=== PATIENT | female | born 1940 | race Caucasian/White ===

== ENCOUNTER → 2017-12-10 13:10 | Outpatient (CLI) | payer MEDICARE, OTHER, SELFPAY | PROVIDERS: Family Provider Family Medicine; PCP Family Medicine; Visit Provider Family Medicine | DX: R00.2 Palpitations (principal); I49.9 Cardiac arrhythmia, unspecified | CPT/HCPCS: 93225; 93226 ==

== ENCOUNTER 2018-11-04 17:10 | Inpatient (IN) | payer MEDICARE, OTHER, SELFPAY ==
[2018-11-04] VITALS (16 sets, daily range): BP systolic 121–184; BP diastolic 57–95; PULSE 80–108; RESP 12–34; TEMP 36.9–39.2; O2SAT 84–100; BMI 43.4; BMI 43.5; BMI 40.7
--- NOTE | 2018-11-04 17:19 | EKG12_ITS ---
Test Reason : SOB Blood Pressure : / mmHG Vent. Rate : 104 BPM Atrial Rate : 104 BPM P-R Int : 150 ms QRS Dur : 072 ms QT Int : 352 ms P-R-T Axes : -17 030 077 degrees QTc Int : 462 ms Sinus tachycardia Otherwise normal ECG Confirmed by ANA FLOR, MAKENNA ([id number]), greeting card editor TRICE LOPEZ ([id number]) on 11/08/2018 1:14:19 PM Referred By: Gabrielle Lam Confirmed By:MAKENNA PEREZ MD
--- NOTE | 2018-11-04 17:29 | RAD_ITS ---
STUDY: X-RAY CHEST REASON FOR EXAM: Female, 77 years old. Coughing with wheezing. TECHNIQUE: Single AP portable view of the chest. COMPARISON: December 13, 2014. FINDINGS: There is a decreased inspiratory effort when compared to prior exam. There is patchy infiltrate in the medial right lung base. Minimal interstitial changes are also seen in the left hilar region There is no demonstrated pleural abnormality. Normal size heart. Normal mediastinum and surekha. Normal visualized pulmonary arteries. There is atherosclerotic calcification of the aortic arch with tortuosity. No visualized osseous changes. There is no demonstrated abnormality of the visualized soft tissue structures of the upper abdomen. RAD/Chest 1 View (Portable) IMPRESSION: Right basilar and left perihilar infiltrates. Electronically Signed: Parviz Garcia DO at 17:42 EDT Tel [phone], Service support ,
[2018-11-04 17:32] LABS: Absolute Lymphocyte Count 0.51 X10^3/ul (0.83-4.51); Absolute Neutrophil Count 8.7 X10^3/uL (2.0-7.7); Basophil# 0.05 X10^3/uL; Basophil% 0.5 % (0-1); Eosinophil# 0.01 X10^3/uL; Eosinophils% 0.1 % (0-5); Hemoglobin 11.6 g/dl (12.0-15.0); Lymphocyte # 0.51 X10^3/ul (4.0); Lymphocyte % 5.1 % (19-41); Mean Corp Hgb Conc 31.4 g/gl (32-36); Mean Corpuscular Hgb 28.6 pg (27.0-32.0); Mean Corpuscular Volume 91.1 fL (81-99); Mean Platelet Vol. 9.9 fl (6.2-12.0); Monocyte# 0.63 X10^3/uL; Monocyte% 6.4 % (0-10); Neutrophil # 8.66 X10^3/uL (2.7-7.7); POSITIVE COUNT NO; POSITIVE DIFFERENTIAL YES; POSITIVE MORPHOLOGY NO; Platelet Count 264 K/mm3 (150-450); RBC Distribution Width CV 15.1 % (11.6-14.6); Red Blood Count 4.06 M/mm3 (4.2-5.4); White Blood Count 9.9 K/mm3 (4.4-11.0)
[2018-11-04 17:33] LABS: Differential Indicated SCAN CRITERIA MET; Neutrophil % 87.4 % (47-70)
[2018-11-04] MEDS: Albuterol 2.5 MG/3 ML VIAL.NEB. INHALATION ×3 (17:38→17:46)
[2018-11-04 17:41] LABS: Base Excess -1 mmol/L (-2 to +2); Bicarbonate 24.2 mmol/L (22-26); Blood Gas Specimen Type ART; O2 Delivery Device NRB Mask; PO2 97 mmHG (75-100); SITE R Brachial; SO2 97 % (95-99); Time Given 1725; Total Carbon Dioxide 25 mmol/L; pCO2 40.7 mmHg (35-45); pH 7.38 (7.35-7.45)
[2018-11-04 17:41] LABS: International Normalized Ratio 1.2
[2018-11-04 17:42] LABS: Partial Thromboplast Time 34.3 Seconds (24.1-36.2)
[2018-11-04 17:49] LABS: ALB/GLOB Ratio 0.8 RATIO (0.9-2.4); AST(SGOT) 52 U/L (15-37); Alanine Aminotransfer ALT/SGPT 36 U/L (13-56); Albumin, Serum 2.9 g/dL (3.2-5.0); Alkaline Phosphatase 79 U/L (45-117); Anion Gap 9 (5-15); BUN 19 mg/dL (7-18); BUN/Creat Ratio 15.1 RATIO (10-20); Calcium,Total 7.9 mg/dL (8.5-10.1); Chloride 98 mmol/L (98-107); Creatinine, Serum 1.26 mg/dL (0.55-1.02); EST Glomerular Filtration Rate 44 mL/min (>60); Est Glom Filt Rate - Afr Amer 53 mL/min (>60); Estimated Creatinine Clearance 26.86 ml/min; Globulin 3.8 g/dL (2.2-4.2); Glucose 154 mg/dL (74-106); Potassium 3.9 mmol/L (3.5-5.1); Protein, Total 6.7 g/dL (6.4-8.2); Sodium Level 135 mmol/L (136-145)
[2018-11-04 17:57] LABS: Lactic Acid 2.1 mmol/L (0.4-2.0)
[2018-11-04 18:00] LABS: Platelet Estimate ADEQUATE (ADEQ)
--- NOTE | 2018-11-04 18:00 | ED.VIS.GEN ---
History of Present Illness Chief Complaint: Shortness of Breath Detail of Chief Complaint: Bad cough and shortness of breath 4 days Onset: Days Context: Sudden Onset Timing: Continuous Quality: Dyspnea, dyspnea on exertion and wheezing Location: Respiratory Current Severity: Severe Maximum Severity: Severe Worsened by: Activity Relieved by: Nothing Associated Symptoms: Subjective fever, nonproductive cough Narrative: Patient is a 77-year-old woman with no history of coronary disease, CHF or lung disease who presents with bad cough and shortness of breath for the past week. Patient was hypoxic per squad. She arrived by ambulance on rebreather mask. Patient is tachycardic, tachypneic and febrile. Last she denies orthopnea or PND. She denies exertional chest pain. She states she feels terrible. Prior similar symptoms: No Recent Illness/Hospitalization: No - Past Medical History (1) Acute kidney insufficiency Status: Acute (2) Barretts esophagus Status: Chronic (3) Benign essential hypertension Status: Chronic (4) Cerebrovascular disease Status: Chronic (5) History of bleeding peptic ulcer Status: Chronic (6) Osteoarthritis Status: Chronic Past Medical History - Allergies and Home Meds Allergies/Adverse Reactions: Allergies gabapentin Allergy (Verified 11/04/18 17:22) Unknown nortriptyline Allergy (Verified 11/04/18 17:22) Unknown rofecoxib [From Vioxx] Allergy (Verified 11/04/18 17:22) Unknown tacrolimus Allergy (Verified 11/04/18 17:22) Unknown morphine Adverse Reaction (Verified 11/04/18 17:22) Nausea Primary Care Physician: Nicolas Villegas MD [Primary Care Provider] - Prior records reviewed: Yes Surgical History: appendectomy, cholecystectomy, hysterectomy, total hip arthroplasty Lives: Alone Smoking Status: Former smoker Alcohol: None Drugs: None - Family History Maternal Family History: Reports: No pertinent history Review of Systems General: Reports: Chills, Fever, Malaise, Subjective. Denies: Sweats, Weight loss Eyes: Denies: Visual changes - bilaterally, Blurred Vision - bilaterally ENT: Denies: Bilateral ear pain, Rhinorrhea, Sore throat Cardiovascular: Reports: Palpitations, Heart racing. Denies: Chest pain Respiratory: Reports: Dyspnea, Cough, Dyspnea on exertion. Denies: Sputum, Orthopnea, Paroxysmal nocturnal dyspnea Gastrointestinal: Denies: Abdominal pain, Nausea, Vomiting, Diarrhea, Melena, Hematochezia Genitourinary: Denies: Dysuria, Hematuria, Frequency Musculoskeletal: Denies: Myalgias, Arthralgias, Neck pain, Back pain, Swelling, Extremity Pain Skin: Denies: Rash, Wounds Neurological: Reports: Weakness. Denies: Headache, Parasthesia, Numbness, -, - Hematologic: Denies: Easy bruising, Easy bleeding Allergy: Denies: Uticaria, Swelling of the mouth Physical Exam Vital Signs/Narrative: Vital Signs Temp Pulse Resp BP Pulse Ox 11/04/18 17:30 104 H 32 H 11/04/18 17:21 34 H 96 11/04/18 17:17 34 H 94 11/04/18 17:11 99.8 F H 108 H 34 H 160/76 H 84 Inital Vital Signs reviewed: Yes General: Well nourished, Well developed, Obese, Acute Distress Head: Normocephalic, Atraumatic Eyes: Perrl, EOMI. Negative for: Pale conjunctiva, Scleral icterus, - ENT: No rhinorrhea, TM's clear, Dry mucous membranes Neck: Supple, Nontender, No lymphadenopathy, No JVD Cardiovascular: Regular rhythm, No murmurs, Normal S1, Normal S2, Tachycardia Respiratory: Chest nontender, Rales, Wheezing, Decreased Air Movement, Retractions Abdomen: Soft, Nontender, Nondistended, Normal bowel sounds, No masses Rectal: Deferred Back: Nontender, Normal Inspection. Negative for: CVA tenderness Extremities: Nontender, No edema. Negative for: Calf Tenderness Skin: Normal color, No rash Neurological: Alert, Oriented x3, Cranial nerves II-XII grossly intact, Normal Strength, Normal Sensation Psychological: Normal affect, Normal Mood Diagnostic/Tx/Re-eval Chest X-Ray - ED: 1 View, Read by ED Physician, Right Infiltrate Impressions Chest X-Ray 11/04/18 17:29 IMPRESSION: Right basilar and left perihilar infiltrates. Electronically Signed: Parviz Garcia DO at 17:42 EDT Tel [phone], Service support , 11/04/18 17:29 Chest 1 View (Portable) [RAD] Stat Laboratory Results 11/04/18 11/04/1819 17:15 17:15 17:15 WBC 9.9 RBC 4.06 L Hgb 11.6 L Hct 37.0 MCV 91.1 MCH 28.6 MCHC 31.4 L RDW 15.1 H RDW Differential 50.0 H Plt Count 264 MPV 9.9 Immature Gran % (Auto) 0.500 Neut % (Auto) 87.4 H Lymph % (Auto) 5.1 L [place] % (Auto) 6.4 Eos % (Auto) 0.1 Baso % (Auto) 0.5 Absolute Neuts (auto) 8.7 H Absolute Lymphs (auto) 0.51 L Total Counted Not Reportable Differential Comment SEE COMMENT Platelet Estimate ADEQUATE Anisocytosis RARE Macrocytosis RARE PT 15.0 H INR 1.2 APTT 34.3 Specimen Type Sample Site pH Bicarbonate Actual POC Total CO2 Base Excess O2 Saturation ABG pCO2 ABG pO2 Tomás Test O2 Delivery Device Liter Flow Blood Gas Notified Whom Blood Gas Notified Time Sodium 135 L Potassium 3.9 Chloride 98 Carbon Dioxide 28.0 Anion Gap 9 BUN 19 H Creatinine 1.26 H Estim Creat Clear Calc 26.86 Est GFR (MDRD) Af Amer 53 L Est GFR (MDRD) Non-Af 44 L BUN/Creatinine Ratio 15.1 Glucose 154 H Lactic Acid Calcium 7.9 L Total Bilirubin 0.50 AST 52 H ALT 36 Alkaline Phosphatase 79 Total Protein 6.7 Albumin 2.9 L Globulin 3.8 Albumin/Globulin Ratio 0.8 L 11/04/18 11/04/18 17:15 17:37 WBC RBC Hgb Hct MCV MCH MCHC RDW RDW Differential Plt Count MPV Immature Gran % (Auto) Neut % (Auto) Lymph % (Auto) [place] % (Auto) Eos % (Auto) Baso % (Auto) Absolute Neuts (auto) Absolute Lymphs (auto) Total Counted Differential Comment Platelet Estimate Anisocytosis Macrocytosis PT INR APTT Specimen Type ART Sample Site R Brachial pH 7.38 Bicarbonate Actual 24.2 POC Total CO2 25 Base Excess -1 O2 Saturation 97 ABG pCO2 40.7 ABG pO2 97 Tomás Test NA O2 Delivery Device NRB Mask Liter Flow 15.0 Blood Gas Notified Whom ED Blood Gas Notified Time 1725 Sodium Potassium Chloride Carbon Dioxide Anion Gap BUN Creatinine Estim Creat Clear Calc Est GFR (MDRD) Af Amer Est GFR (MDRD) Non-Af BUN/Creatinine Ratio Glucose Lactic Acid 2.1 H Calcium Total Bilirubin AST ALT Alkaline Phosphatase Total Protein Albumin Globulin Albumin/Globulin Ratio - Rhythm Strip Rhythm Strip: Sinus Rhythm Rate: 110 Ectopy: None - EKG Initial EKG Interpretation: Sinus Tachycardia - Weight is 104. WA interval, QRS duration QT duration normal. [place] is normal. The EKG is normal other than sinus tachycardia. - Medical Decision Making Arrives respiratory distress with respiratory failure. ABG was obtained to assess acid-base status as well as CO2. Patient CO2 was normal which is abnormal since she is tachypnic. This reveals mild compensation.. Portal chest x-ray treated by me as a large right lower lobe infiltrate. Cardiac silhouette is normal. The heart is slightly enlarged. No osseous structure of normality noted. Sepsis work was undertaken. By definition patient has severe sepsis and she has significant respiratory failure. Lactate was elevated 2.1. White count is normal. H&H is unremarkable. Patient received 3 albuterol treatments. She is still wheezing. She is still using accessory muscles. BiPAP was ordered. She was treated with 750 mg of levofloxacin IV piggyback. Case was discussed with hospitalist. She will be admitted to the ICU. - Critical Care Time Critical care time (excluding procedures): 30-74 minutes, Discussing w/Patient &/or Family/Oil Painter, Discussing w/Consultants, Arranging Admission or Transfer, Performing Direct Patient Care at Bedside ED Disposition - Plan for ED Patient: Disposition: Acute Care Hospital [facility] Diagnosis: Severe sepsis, Acute respiratory failure with hypoxia, Right lower lobe pneumonia, Sinus tachycardia by electrocardiogram, Chronic renal insufficiency, stage II (mild), Hyperglycemia, unspecified Referrals: Nicolas Villegas MD [Primary Care Provider] -
[2018-11-04 18:01] LABS: Anisocytosis RARE; Macrocytosis RARE
[2018-11-04] MEDS: levoFLOXacin IV 750 MG/150 ML BAG 100 MG IV (18:20)
[2018-11-04 18:56] LABS: Base Excess 0 mmol/L (-2 to +2); Bicarbonate 24.5 mmol/L (22-26); Blood Gas Specimen Type ART; EPAP 5; FI02 40; IPAP 10; PO2 88 mmHG (75-100); RR 25; SITE R Brachial; SO2 97 % (95-99); Total Carbon Dioxide 26 mmol/L; pCO2 37.4 mmHg (35-45); pH 7.43 (7.35-7.45)
--- NOTE | 2018-11-04 19:44 | PCM.HP.STD ---
Problem List (1) Severe sepsis Status: Acute (2) Acute respiratory failure with hypoxia Status: Acute (3) Right lower lobe pneumonia Status: Acute Qualifiers: Pneumonia type: due to unspecified organism Qualified Code(s): J18.1 - Lobar pneumonia, unspecified organism (4) Hypertension Status: Chronic Qualifiers: Hypertension type: essential hypertension Qualified Code(s): I10 - Essential (primary) hypertension (5) Carotid stenosis Status: Chronic Qualifiers: Laterality: left Qualified Code(s): I65.22 - Occlusion and stenosis of left carotid artery (6) Renal artery stenosis Status: Chronic History of Present Illness Date of Admission: 11/04/18 Chief Complaint: Shortness of breath ongoing for 4 days. The patient is a 77 year old F with past medical history of hypertension, hyperlipidemia, carotid stenosis, status post carotid endarterectomy, renal artery stenosis since status post stent, CKD stage 3, rheumatoid arthritis who comes in with complaints of shortness of breath ongoing for couple of weeks worsening over the last 4 days. Patient denies any fever or chills. No nausea or vomiting. SpO2 by EMS was 68% on room air Vitals in ED showed temp 99.8F, heart rate is 108, blood pressure is 160/76, respiratory rate is 34, SPO2 is 84% on room air, improved to 96% on BiPAP 10/5, FiO2 40% Admitting blood work showed CBC 9.9, hemoglobin 11.6, platelet 264, INR 1.2, APTT 34.3, ABG is unremarkable. BMP shows sodium of 135, potassium 3.9, chloride 98, bicarbonate 28, BUN 19, creatinine 1.26, Lactic acid is 2.1, LFTs unremarkable. Chest x-ray showed infiltrate in the right lung base, left perihilar infiltrates also. Past Medical History Past Medical History (Chronic Problems): Chronic Problems Chronic renal insufficiency, stage II (mild) (Chronic) Hypertension (Chronic) Carotid stenosis (Chronic) Renal artery stenosis (Chronic) Osteoarthritis (Chronic) Cerebrovascular disease (Chronic) Barretts esophagus (Chronic) History of bleeding peptic ulcer (Chronic) Benign essential hypertension (Chronic) Allergies gabapentin Allergy (Verified 11/04/18 17:22) Unknown nortriptyline Allergy (Verified 11/04/18 17:22) Unknown rofecoxib [From Vioxx] Allergy (Verified 11/04/18 17:22) Unknown tacrolimus Allergy (Verified 11/04/18 17:22) Unknown morphine Adverse Reaction (Verified 11/04/18 17:22) Nausea Home Medications: Ambulatory Orders Medication Instructions Recorded Pantoprazole Sodium [Protonix] 40 mg PO DAILY 12/15/14 Acetaminophen [Tylenol Arthritis] 650 mg PO Q4H PRN PRN 11/04/18 Amlodipine [Norvasc] 2.5 mg PO DAILY 11/04/18 Carvedilol 25 mg PO BID 11/04/18 Chlorthalidone 12.5 mg PO DAILY 11/04/18 Cholecalciferol (VIT D3) [Vitamin 2,000 unit PO DAILY 11/04/18 D] Clopidogrel Bisulfate [Clopidogrel] 75 mg PO DAILY 11/04/18 Coenzyme [id number] [Co 1 cap PO DAILY 11/04/18 Q-10 with l-Carnitine Sftgl] Labetalol HCl 300 mg PO BID 11/04/18 Leflunomide 20 mg PO DAILY 11/04/18 Pravastatin Sodium 20 mg PO QHS 11/04/18 Prednisone 5 mg PO DAILY 11/04/18 Surgical History: appendectomy, cholecystectomy, hysterectomy, total hip arthroplasty Psychiatric History: No pertinent psych hx 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 Denies: Chills, Fever, Weight Change Eyes: Denies: Blurred vision, Cataracts, Conjunctivae Inflammation, Pain, Redness, Vision Change HEENT: Denies: Difficulty Hearing, Difficulty Swallowing, Head Aches, Sinus Congestion, Sinus Drainage, Sore Throat Cardiovascular: Denies: Chest Pain, Claudication, Orthopnea, Palpitations, Paroxysmal Noc. Dyspnea Respiratory: Reports: Cough, Pleuritic Pain, Shortness of Breath, Shortness of breath at rest, Shortness of breath upon exertion. Denies: Hemoptysis, Sputum production Gastrointestinal: Denies: Abdominal Pain, Constipation, Hematemesis, Hematochezia, Nausea, Vomiting Genitourinary: Denies: Dysuria Musculoskeletal: Denies: Joint Pain, Joint stiffness, Joint swelling, Joint Tenderness Skin: Denies: Rash, Wounds Neurological: Denies: Difficulty swallowing, Focal weakness, Numbness, Tingling Psychiatric: Denies: Anxiety, Depression, Homicidal Ideations, Suicidal Ideations Hematologic/ Lymphatic: Denies: Easy Bruising, Easy Bleeding VTE Information - Inpt Only VTE Present on Admission: No VTE Pharm Prophylaxis ordered?: Yes Patient Problems: Active and Suspected Problems Severe sepsis (Acute) Acute respiratory failure with hypoxia (Acute) Right lower lobe pneumonia (Acute) Sinus tachycardia by electrocardiogram (Acute) Hyperglycemia, unspecified (Acute) - Physical Exam General: Alert, Oriented x3, Cooperative, - - Moderate respiratory distress, on BiPAP HEENT: Atraumatic, PERRLA, EOMI, Normocephalic Oral: Dry Mucosa Neck: Supple Lungs: Normal air movement, Diminished - More on the right than the left, Wheezes - Few wheezes heard Cardiovascular: Regular rate, Regular Rhythm, Normal S1, Normal S2, No murmurs Abdomen: Bowel Sounds Present, Soft, Non Tender, Non-Distended, No Hepato-splenomegaly Extremities: Edema - Trace bilateral edema Skin: No rashes Musculoskeletal: No Tenderness to Palpation of Joints or Extremities Lymphatic: No Cervical, Supraclavicular, or Inguinal Adenopathy Neurological: Cranial nerves II-XII grossly intact, Neuro grossly intact Psych/Mental Status: Normal Affect, Appropriate Vital Signs Temp Pulse Resp BP Pulse Ox 98.5 F 99 24 H 134/87 H 96 11/04/18 19:01 11/04/18 19:01 11/04/18 19:01 11/04/18 19:01 11/04/18 19:01 Oxygen Delivery Method Bi-pap Weight: 101 kg Body Mass Index (BMI) 43.4 Laboratory Tests Past 24 Hrs 11/04/18 11/04/18 11/04/18 17:15 17:15 17:15 WBC 9.9 RBC 4.06 L Hgb 11.6 L Hct 37.0 MCV 91.1 MCH 28.6 MCHC 31.4 L RDW 15.1 H RDW Differential 50.0 H Plt Count 264 MPV 9.9 Immature Gran % (Auto) 0.500 Neut % (Auto) 87.4 H Lymph % (Auto) 5.1 L [place] % (Auto) 6.4 Eos % (Auto) 0.1 Baso % (Auto) 0.5 Absolute Neuts (auto) 8.7 H Absolute Lymphs (auto) 0.51 L Total Counted Not Reportable Differential Comment SEE COMMENT Platelet Estimate ADEQUATE Anisocytosis RARE Macrocytosis RARE PT 15.0 H INR 1.2 APTT 34.3 Specimen Type Sample Site pH Bicarbonate Actual POC Total CO2 Base Excess O2 Saturation O2 % ABG pCO2 ABG pO2 Tomás Test Respiration Rate O2 Delivery Device Liter Flow EPAP IPAP Blood Gas Notified Whom Blood Gas Notified Time Sodium 135 L Potassium 3.9 Chloride 98 Carbon Dioxide 28.0 Anion Gap 9 BUN 19 H Creatinine 1.26 H Estim Creat Clear Calc 26.86 Est GFR (MDRD) Af Amer 53 L Est GFR (MDRD) Non-Af 44 L BUN/Creatinine Ratio 15.1 Glucose 154 H Lactic Acid Calcium 7.9 L Total Bilirubin 0.50 AST 52 H ALT 36 Alkaline Phosphatase 79 Total Protein 6.7 Albumin 2.9 L Globulin 3.8 Albumin/Globulin Ratio 0.8 L 11/04/18 11/04/18 11/04/18 17:15 17:37 18:48 WBC RBC Hgb Hct MCV MCH MCHC RDW RDW Differential Plt Count MPV Immature Gran % (Auto) Neut % (Auto) Lymph % (Auto) [place] % (Auto) Eos % (Auto) Baso % (Auto) Absolute Neuts (auto) Absolute Lymphs (auto) Total Counted Differential Comment Platelet Estimate Anisocytosis Macrocytosis PT INR APTT Specimen Type ART ART Sample Site R Brachial R Brachial pH 7.38 7.43 Bicarbonate Actual 24.2 24.5 POC Total CO2 25 26 Base Excess -1 0 O2 Saturation 97 97 O2 % 40 ABG pCO2 40.7 37.4 ABG pO2 97 88 Tomás Test NA NA Respiration Rate 25 O2 Delivery Device NRB Mask Bi / C PAP Liter Flow 15.0 EPAP 5 IPAP 10 Blood Gas Notified Whom ED MD ED MD Blood Gas Notified Time 1725 Sodium Potassium Chloride Carbon Dioxide Anion Gap BUN Creatinine Estim Creat Clear Calc Est GFR (MDRD) Af Amer Est GFR (MDRD) Non-Af BUN/Creatinine Ratio Glucose Lactic Acid 2.1 H Calcium Total Bilirubin AST ALT Alkaline Phosphatase Total Protein Albumin Globulin Albumin/Globulin Ratio Assessment/Plan All Active Problems Severe sepsis (Acute) Acute respiratory failure with hypoxia (Acute) Right lower lobe pneumonia (Acute) Sinus tachycardia by electrocardiogram (Acute) Hyperglycemia, unspecified (Acute) Dehydration (Acute) Acute kidney insufficiency (Acute) 77 year old F with past medical history of hypertension, hyperlipidemia, carotid stenosis, status post carotid endarterectomy, renal artery stenosis since status post stent, CKD stage 3, rheumatoid arthritis who comes in with complaints of shortness of breath ongoing for couple of weeks worsening over the last 4 days. Patient denies any fever or chills. No nausea or vomiting. SpO2 by EMS was 68% on room air. 1. Acute hypoxic respiratory failure secondary to bilateral CAP, bilaterally, likely secondary to suspected gram positive organisms Saturating 68% with EMS, 84% whilst in ED improved on BiPAP, give 1 dose of Levaquin in the ED Chest x-ray shows bilateral pneumonia, worse on the right Patient is immunocompromise, on leflunomide and prednisone Plan: Admit to ICU, continue on BiPAP, breathing treatments, IV steroids, sap bobj developer consult, IV ceftriaxone and azithromycin 2. Severe sepsis secondary to Bilateral CAP, on IV antibiotics, trend lactic acid, continue on IVF 3. Hypertension, controlled, continue with home meds 3. CKD stage 3, stable 4. Carotid stenosis s/p carotid endartectomies/renal artery stenosis s/p stent, on plavix 5. RA, on leflunomide and prednisone, both are on hold 6. DVT PPx- Heparin SC Code Visit Inpatient E&M: 58339 Init Hosp L3 Procedures: 75713 Advncd Care Plan 30 Min
--- NOTE | 2018-11-04 19:57 | HP.PCM_ITS ---
Problem List (1) Severe sepsis Status: Acute (2) Acute respiratory failure with hypoxia Status: Acute (3) Right lower lobe pneumonia Status: Acute Qualifiers: Pneumonia type: due to unspecified organism Qualified Code(s): J18.1 - Lobar pneumonia, unspecified organism (4) Hypertension Status: Chronic Qualifiers: Hypertension type: essential hypertension Qualified Code(s): I10 - Essential (primary) hypertension (5) Carotid stenosis Status: Chronic Qualifiers: Laterality: left Qualified Code(s): I65.22 - Occlusion and stenosis of left carotid artery (6) Renal artery stenosis Status: Chronic History of Present Illness Date of Admission: 11/04/18 Chief Complaint: Shortness of breath ongoing for 4 days. The patient is a 77 year old F with past medical history of hypertension, hyperlipidemia, carotid stenosis, status post carotid endarterectomy, renal artery stenosis since status post stent, CKD stage 3, rheumatoid arthritis who comes in with complaints of shortness of breath ongoing for couple of weeks worsening over the last 4 days. Patient denies any fever or chills. No nausea or vomiting. SpO2 by EMS was 68% on room air Vitals in ED showed temp 99.8F, heart rate is 108, blood pressure is 160/76, respiratory rate is 34, SPO2 is 84% on room air, improved to 96% on BiPAP 10/5, FiO2 40% Admitting blood work showed CBC 9.9, hemoglobin 11.6, platelet 264, INR 1.2, APTT 34.3, ABG is unremarkable. BMP shows sodium of 135, potassium 3.9, chloride 98, bicarbonate 28, BUN 19, creatinine 1.26, Lactic acid is 2.1, LFTs unremarkable. Chest x-ray showed infiltrate in the right lung base, left perihilar infiltrates also. Past Medical History Past Medical History (Chronic Problems): Chronic Problems Chronic renal insufficiency, stage II (mild) (Chronic) Hypertension (Chronic) Carotid stenosis (Chronic) Renal artery stenosis (Chronic) Osteoarthritis (Chronic) Cerebrovascular disease (Chronic) Barretts esophagus (Chronic) History of bleeding peptic ulcer (Chronic) Benign essential hypertension (Chronic) Allergies gabapentin Allergy (Verified 11/04/18 17:22) Unknown nortriptyline Allergy (Verified 11/04/18 17:22) Unknown rofecoxib [From Vioxx] Allergy (Verified 11/04/18 17:22) Unknown tacrolimus Allergy (Verified 11/04/18 17:22) Unknown morphine Adverse Reaction (Verified 11/04/18 17:22) Nausea Home Medications: Ambulatory Orders Medication Instructions Recorded Pantoprazole Sodium [Protonix] 40 mg PO DAILY 12/15/14 Acetaminophen [Tylenol Arthritis] 650 mg PO Q4H PRN PRN 11/04/18 Amlodipine [Norvasc] 2.5 mg PO DAILY 11/04/18 Carvedilol 25 mg PO BID 11/04/18 Chlorthalidone 12.5 mg PO DAILY 11/04/18 Cholecalciferol (VIT D3) [Vitamin 2,000 unit PO DAILY 11/04/18 D] Clopidogrel Bisulfate [Clopidogrel] 75 mg PO DAILY 11/04/18 Coenzyme [id number] [Co 1 cap PO DAILY 11/04/18 Q-10 with l-Carnitine Sftgl] Labetalol HCl 300 mg PO BID 11/04/18 Leflunomide 20 mg PO DAILY 11/04/18 Pravastatin Sodium 20 mg PO QHS 11/04/18 Prednisone 5 mg PO DAILY 11/04/18 Surgical History: appendectomy, cholecystectomy, hysterectomy, total hip arthroplasty Psychiatric History: No pertinent psych hx 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 Denies: Chills, Fever, Weight Change Eyes: Denies: Blurred vision, Cataracts, Conjunctivae Inflammation, Pain, Redness, Vision Change HEENT: Denies: Difficulty Hearing, Difficulty Swallowing, Head Aches, Sinus Congestion, Sinus Drainage, Sore Throat Cardiovascular: Denies: Chest Pain, Claudication, Orthopnea, Palpitations, Paroxysmal Noc. Dyspnea Respiratory: Reports: Cough, Pleuritic Pain, Shortness of Breath, Shortness of breath at rest, Shortness of breath upon exertion. Denies: Hemoptysis, Sputum production Gastrointestinal: Denies: Abdominal Pain, Constipation, Hematemesis, Hematochezia, Nausea, Vomiting Genitourinary: Denies: Dysuria Musculoskeletal: Denies: Joint Pain, Joint stiffness, Joint swelling, Joint Tenderness Skin: Denies: Rash, Wounds Neurological: Denies: Difficulty swallowing, Focal weakness, Numbness, Tingling Psychiatric: Denies: Anxiety, Depression, Homicidal Ideations, Suicidal Ideations Hematologic/ Lymphatic: Denies: Easy Bruising, Easy Bleeding VTE Information - Inpt Only VTE Present on Admission: No VTE Pharm Prophylaxis ordered?: Yes Patient Problems: Active and Suspected Problems Severe sepsis (Acute) Acute respiratory failure with hypoxia (Acute) Right lower lobe pneumonia (Acute) Sinus tachycardia by electrocardiogram (Acute) Hyperglycemia, unspecified (Acute) - Physical Exam General: Alert, Oriented x3, Cooperative, - - Moderate respiratory distress, on BiPAP HEENT: Atraumatic, PERRLA, EOMI, Normocephalic Oral: Dry Mucosa Neck: Supple Lungs: Normal air movement, Diminished - More on the right than the left, Wheezes - Few wheezes heard Cardiovascular: Regular rate, Regular Rhythm, Normal S1, Normal S2, No murmurs Abdomen: Bowel Sounds Present, Soft, Non Tender, Non-Distended, No Hepato- splenomegaly Extremities: Edema - Trace bilateral edema Skin: No rashes Musculoskeletal: No Tenderness to Palpation of Joints or Extremities Lymphatic: No Cervical, Supraclavicular, or Inguinal Adenopathy Neurological: Cranial nerves II-XII grossly intact, Neuro grossly intact Psych/Mental Status: Normal Affect, Appropriate Vital Signs Temp Pulse Resp BP Pulse Ox 98.5 F 99 24 H 134/87 H 96 11/04/18 19:01 11/04/18 19:01 11/04/18 19:01 11/04/18 19:01 11/04/18 19:01 Oxygen Delivery Method Bi-pap Weight: 101 kg Body Mass Index (BMI) 43.4 Laboratory Tests Past 24 Hrs 11/04/18 11/04/18 11/04/18 17:15 17:15 17:15 WBC 9.9 RBC 4.06 L Hgb 11.6 L Hct 37.0 MCV 91.1 MCH 28.6 MCHC 31.4 L RDW 15.1 H RDW Differential 50.0 H Plt Count 264 MPV 9.9 Immature Gran % (Auto) 0.500 Neut % (Auto) 87.4 H Lymph % (Auto) 5.1 L Rogers % (Auto) 6.4 Eos % (Auto) 0.1 Baso % (Auto) 0.5 Absolute Neuts (auto) 8.7 H Absolute Lymphs (auto) 0.51 L Total Counted Not Reportable Differential Comment SEE COMMENT Platelet Estimate ADEQUATE Anisocytosis RARE Macrocytosis RARE PT 15.0 H INR 1.2 APTT 34.3 Specimen Type Sample Site pH Bicarbonate Actual POC Total CO2 Base Excess O2 Saturation O2 % ABG pCO2 ABG pO2 Tomás Test Respiration Rate O2 Delivery Device Liter Flow EPAP IPAP Blood Gas Notified Whom Blood Gas Notified Time Sodium 135 L Potassium 3.9 Chloride 98 Carbon Dioxide 28.0 Anion Gap 9 BUN 19 H Creatinine 1.26 H Estim Creat Clear Calc 26.86 Est GFR (MDRD) Af Amer 53 L Est GFR (MDRD) Non-Af 44 L BUN/Creatinine Ratio 15.1 Glucose 154 H Lactic Acid Calcium 7.9 L Total Bilirubin 0.50 AST 52 H ALT 36 Alkaline Phosphatase 79 Total Protein 6.7 Albumin 2.9 L Globulin 3.8 Albumin/Globulin Ratio 0.8 L 11/04/18 11/04/18 11/04/18 17:15 17:37 18:48 WBC RBC Hgb Hct MCV MCH MCHC RDW RDW Differential Plt Count MPV Immature Gran % (Auto) Neut % (Auto) Lymph % (Auto) Rogers % (Auto) Eos % (Auto) Baso % (Auto) Absolute Neuts (auto) Absolute Lymphs (auto) Total Counted Differential Comment Platelet Estimate Anisocytosis Macrocytosis PT INR APTT Specimen Type ART ART Sample Site R Brachial R Brachial pH 7.38 7.43 Bicarbonate Actual 24.2 24.5 POC Total CO2 25 26 Base Excess -1 0 O2 Saturation 97 97 O2 % 40 ABG pCO2 40.7 37.4 ABG pO2 97 88 Tomás Test NA NA Respiration Rate 25 O2 Delivery Device NRB Mask Bi / C PAP Liter Flow 15.0 EPAP 5 IPAP 10 Blood Gas Notified Whom ED MD ED MD Blood Gas Notified Time 1725 Sodium Potassium Chloride Carbon Dioxide Anion Gap BUN Creatinine Estim Creat Clear Calc Est GFR (MDRD) Af Amer Est GFR (MDRD) Non-Af BUN/Creatinine Ratio Glucose Lactic Acid 2.1 H Calcium Total Bilirubin AST ALT Alkaline Phosphatase Total Protein Albumin Globulin Albumin/Globulin Ratio Assessment/Plan All Active Problems Severe sepsis (Acute) Acute respiratory failure with hypoxia (Acute) Right lower lobe pneumonia (Acute) Sinus tachycardia by electrocardiogram (Acute) Hyperglycemia, unspecified (Acute) Dehydration (Acute) Acute kidney insufficiency (Acute) 77 year old F with past medical history of hypertension, hyperlipidemia, carotid stenosis, status post carotid endarterectomy, renal artery stenosis since status post stent, CKD stage 3, rheumatoid arthritis who comes in with complaints of shortness of breath ongoing for couple of weeks worsening over the last 4 days. Patient denies any fever or chills. No nausea or vomiting. SpO2 by EMS was 68% on room air. 1. Acute hypoxic respiratory failure secondary to bilateral CAP, bilaterally, likely secondary to suspected gram positive organisms Saturating 68% with EMS, 84% whilst in ED improved on BiPAP, give 1 dose of Levaquin in the ED Chest x-ray shows bilateral pneumonia, worse on the right Patient is immunocompromise, on leflunomide and prednisone Plan: Admit to ICU, continue on BiPAP, breathing treatments, IV steroids, wearing apparel shaker consult, IV ceftriaxone and azithromycin 2. Severe sepsis secondary to Bilateral CAP, on IV antibiotics, trend lactic acid, continue on IVF 3. Hypertension, controlled, continue with home meds 3. CKD stage 3, stable 4. Carotid stenosis s/p carotid endartectomies/renal artery stenosis s/p stent, on plavix 5. RA, on leflunomide and prednisone, both are on hold 6. DVT PPx- Heparin SC Code Visit Inpatient E&M: 59581 Init Hosp L3 Procedures: 14243 Advncd Care Plan 30 Min
[2018-11-04] MEDS: 0.9% Normal Saline 1,000 ML 75 ML IV (20:45)
[2018-11-04] MEDS: Acetaminophen 325 MG Tablet 650 MG PO (21:09)
[2018-11-04] MEDS: Heparin Injection (Vial) 5,000 UNIT/ML VIAL 5000 UNIT SC (21:17)
[2018-11-04] MEDS: Ceftriaxone 1 GM/50 ML BAG IV (21:17)
[2018-11-04] MEDS: Carvedilol 25 MG Tablet PO (21:17)
[2018-11-04 21:25] LABS: Reflex Lactate? Y
[2018-11-04 21:35] LABS: Bedside Glucose 103 mg/dL (70-110)
--- NOTE | 2018-11-04 21:41 | ECHOD_ITS ---
Reason For Study: Dyspnea/SOB Procedure This was a 2D Doppler, Color Flow transthoracic echocardiogram. The exam was of adequate technical quality. Exam performed portable in ICU/CCU. Left Ventricle Normal LV size. Segmental dysfunction with preserved ejection fraction (see wall motion). The estimated ejection fraction is 60 %. Mid-Inferior: Hypokinetic. Mid-inferoseptal : Hypokinetic. Right Ventricle Normal RV size. Normal systolic function. Atria The left atrium is mildly enlarged. Normal right atrium. No doppler evidence for ASD. Mitral Valve There is moderate mitral annular calcification. Extension of the mitral annular calcification onto the posterior mitral valve leaflet. Mild diffuse mitral valve thickening. Trivial mitral valve insufficiency. Tricuspid Valve Normal tricuspid valve. Mild to moderate (1-2+) tricuspid valve insufficiency. Right ventricular systolic pressure estimated to be 55 mmHg. Aortic Valve Trisinus/trileaflet aortic valve. Mild diffuse aortic valve thickening. Moderate focal aortic valve calcification. Pulmonic Valve The pulmonic valve is not well visualized. Great Vessels Normal sized aortic root. Calcified aortic root. Pericardium/Pleural No pericardial effusion. MMode/2D Measurements & Calculations LVIDd: 4.5 cm IVSd: 1.3 cm Ao root diam: 2.7 cm LVIDs: 3.1 cm LVPWd: 1.2 cm RVDd: 4.7 cm FS: 31.0 % LAV(MOD-bp): 46.2 ml LVAd ap4: 22.6 cm2 SV(MOD-sp4): 34.3 ml LAV(MOD-sp2): 49.9 ml EDV(MOD-sp4): 55.1 ml LAV(MOD-sp4): 40.8 ml EDV(sp4-el): 56.1 ml LVAs ap4: 12.2 cm2 ESV(MOD-sp4): 20.8 ml ESV(sp4-el): 20.2 ml EF(MOD-sp4): 62.3 % EF(sp4-el): 64.0 % SV(sp4-el): 35.9 ml LA A4 area: 17.5 cm2 LA dimension(2D): 4.2 cm RA A4 area: 16.0 cm2 Doppler Measurements & Calculations MV E max gurjit: 115.7 cm/sec Lat Peak E' Gurjit: 6.8 cm/sec Med Peak E' Gurjit: 5.0 cm/sec MV A max gurjit: 89.8 cm/sec E/E' lat: 17.1 E/E' med: 23.3 MV E/A: 1.3 Ao V2 max: 160.8 cm/sec LV V1 max: 103.5 cm/sec PA V2 max: 96.6 cm/sec Ao max P.3 mmHg LV V1 max P.3 mmHg Ao V2 mean: 113.5 cm/sec Ao mean P.7 mmHg Ao V2 VTI: 38.2 cm TR max gurjit: 341.9 cm/sec TR max P.8 mmHg Interpretation Summary Segmental dysfunction with preserved ejection fraction (see wall motion). The estimated ejection fraction is 60 %. The left atrium is mildly enlarged. There is moderate mitral annular calcification. Extension of the mitral annular calcification onto the posterior mitral valve leaflet. Mild diffuse mitral valve thickening. Trivial mitral valve insufficiency. Mild to moderate (1-2+) tricuspid valve insufficiency. Mild diffuse aortic valve thickening. Moderate focal aortic valve calcification. Calcified aortic root. Right ventricular systolic pressure estimated to be 55 mmHg. Transmitral diastolic flow velocities suggest diastolic dysfunction (pseudonormal pattern). Ordering Physician: Nirav Emmanuel Referring Physician: Ed Villegas Performed By: Margaret Rosenthal, WINDY, RVT
[2018-11-04 22:09] LABS: Lactic Acid 1.2 mmol/L (0.4-2.0)
[2018-11-04] MEDS: Labetalol 200 MG Tablet 300 MG PO (22:19)
[2018-11-05] VITALS (26 sets, daily range): BP systolic 100–201; BP diastolic 50–81; PULSE 75–87; RESP 17–27; TEMP 36.2–38.2; O2SAT 92–99
[2018-11-05 04:30] LABS: Absolute Lymphocyte Count 0.32 X10^3/ul (0.83-4.51); Absolute Neutrophil Count 7.1 X10^3/uL (2.0-7.7); Basophil# 0.02 X10^3/uL; Basophil% 0.3 % (0-1); Eosinophil# 0.01 X10^3/uL; Eosinophils% 0.1 % (0-5); Hematocrit 31.2 % (37-47); Hemoglobin 9.8 g/dl (12.0-15.0); Lymphocyte # 0.32 X10^3/ul (4.0); Lymphocyte % 4.2 % (19-41); Mean Corp Hgb Conc 31.4 g/gl (32-36); Mean Corpuscular Hgb 28.4 pg (27.0-32.0); Mean Corpuscular Volume 90.4 fL (81-99); Mean Platelet Vol. 9.8 fl (6.2-12.0); Monocyte% 2.6 % (0-10); Neutrophil # 7.08 X10^3/uL (2.7-7.7); Neutrophil % 92.1 % (47-70); Platelet Count 212 K/mm3 (150-450); RBC Distribution Width CV 15.2 % (11.6-14.6); RBC Distribution Width SD 49.4 fl (35.1-43.9); Red Blood Count 3.45 M/mm3 (4.2-5.4); White Blood Count 7.7 K/mm3 (4.4-11.0)
[2018-11-05 04:32] LABS: Anion Gap 10 (5-15); BUN 26 mg/dL (7-18); BUN/Creat Ratio 18.4 RATIO (10-20); Calcium,Total 7.4 mg/dL (8.5-10.1); Chloride 98 mmol/L (98-107); Creatinine, Serum 1.41 mg/dL (0.55-1.02); EST Glomerular Filtration Rate 38 mL/min (>60); Est Glom Filt Rate - Afr Amer 46 mL/min (>60); Glucose 153 mg/dL (74-106); Potassium 3.7 mmol/L (3.5-5.1); Sodium Level 136 mmol/L (136-145)
[2018-11-05 04:33] LABS: Differential Indicated SCAN CRITERIA MET; POSITIVE COUNT NO; POSITIVE DIFFERENTIAL YES; POSITIVE MORPHOLOGY NO
[2018-11-05 04:55] LABS: Differential Comment SCANNED
[2018-11-05] MEDS: Heparin Injection (Vial) 5,000 UNIT/ML VIAL 5000 UNIT SC ×2 (05:20→13:07)
[2018-11-05 06:41] LABS: Bedside Glucose 150 mg/dL (70-110)
--- NOTE | 2018-11-05 07:40 | PCM.CON.CC ---
Problem List (1) Severe sepsis Status: Acute (2) Acute respiratory failure with hypoxia Status: Acute (3) Right lower lobe pneumonia Status: Acute Qualifiers: Pneumonia type: due to unspecified organism Qualified Code(s): J18.1 - Lobar pneumonia, unspecified organism (4) Chronic renal insufficiency, stage II (mild) Status: Chronic (5) Hypertension Status: Chronic Qualifiers: Hypertension type: essential hypertension Qualified Code(s): I10 - Essential (primary) hypertension (6) Carotid stenosis Status: Chronic Qualifiers: Laterality: left Qualified Code(s): I65.22 - Occlusion and stenosis of left carotid artery (7) Renal artery stenosis Status: Chronic (8) Osteoarthritis Status: Chronic (9) Cerebrovascular disease Status: Chronic (10) Barretts esophagus Status: Chronic (11) History of bleeding peptic ulcer Status: Chronic (12) Benign essential hypertension Status: Chronic Reason for Consult Date of Consultation: 11/05/18 Reason for Consultation: Respiratory failure History of Present Illness: The patient is a 77 year old F, with past medical history listed below, who presented to [facility] on 11/04/2018 secondary to worsening cough and shortness of breath over the last 7 to 14 days. Patient reportedly had developed a cough and was trying to treat this conservatively. Patient states she had a coughing episode that almost mainly pass out so the squad was called. Patient was noted to be hypoxic and was placed on a nonrebreather mask and transferred to the ED for evaluation. On arrival to the emergency department, patient was noted to be in significant respiratory distress. Patient did have an ABG showing normal CO2 despite tachypnea. Chest x-ray was obtained showing a large right lower lobe infiltrate. Lactate was noted to be elevated at 2.1, but no leukocytosis. Patient received 3 albuterol aerosol treatments and was still using accessory muscles. Patient was placed on BiPAP therapy and then treated with Levaquin. Patient was admitted to the intensive care unit on BiPAP therapy. Since being in the intensive care unit, patient has remained on nasal cannula oxygen. Patient has been hypertensive and febrile. Patient reports subjective improvement in overall condition. Patient does report a cough and does not normally need nasal cannula oxygen. Patient does report a 40+-pack-year smoking history, but has never been seen by a senior editor. Patient is never had pulmonary function test previously. Patient denies requiring intensive care previously. Patient does report some mild right chest discomfort, but feels this is improved compared to previous. Patient denies any focal neurologic symptoms. No urinary symptoms have been reported. Patient denies any aspiration events. Review of systems otherwise negative x10 systems. Past Medical History Past Medical History (Chronic Problems): Chronic Problems Chronic renal insufficiency, stage II (mild) (Chronic) Hypertension (Chronic) Carotid stenosis (Chronic) Renal artery stenosis (Chronic) Osteoarthritis (Chronic) Cerebrovascular disease (Chronic) Barretts esophagus (Chronic) History of bleeding peptic ulcer (Chronic) Benign essential hypertension (Chronic) Allergies gabapentin Allergy (Verified 11/04/18 17:22) Unknown nortriptyline Allergy (Verified 11/04/18 17:22) Unknown rofecoxib [From Vioxx] Allergy (Verified 11/04/18 17:22) Unknown tacrolimus Allergy (Verified 11/04/18 17:22) Unknown morphine Adverse Reaction (Verified 11/04/18 17:22) Nausea Home Medications: Ambulatory Orders Medication Instructions Recorded Pantoprazole Sodium [Protonix] 40 mg PO DAILY 12/15/14 Acetaminophen [Tylenol Arthritis] 650 mg PO Q4H PRN PRN 11/04/18 Amlodipine [Norvasc] 2.5 mg PO DAILY 11/04/18 Carvedilol 25 mg PO BID 11/04/18 Chlorthalidone 12.5 mg PO DAILY 11/04/18 Cholecalciferol (VIT D3) [Vitamin 2,000 unit PO DAILY 11/04/18 D] Clopidogrel Bisulfate [Clopidogrel] 75 mg PO DAILY 11/04/18 Coenzyme [id number] [Co 1 cap PO DAILY 11/04/18 Q-10 with l-Carnitine Sftgl] Labetalol HCl 300 mg PO BID 11/04/18 Leflunomide 20 mg PO DAILY 11/04/18 Pravastatin Sodium 20 mg PO QHS 11/04/18 Prednisone 5 mg PO DAILY 11/04/18 Surgical History: appendectomy, cholecystectomy, hysterectomy, total hip arthroplasty Psychiatric History: No pertinent psych hx RESEARCH MANAGER History: No pertinent RESEARCH MANAGER history Lives: Alone Smoking Status: Former smoker Tobacco Use: Cigarettes Alcohol: None Drugs: None - *Family History Paternal History Items: No pertinent history Maternal History Items: No pertinent history Review of Systems Comment: See HPI, otherwise negative x10 systems. Patient Problems: Active and Suspected Problems Severe sepsis (Acute) Acute respiratory failure with hypoxia (Acute) Right lower lobe pneumonia (Acute) Sinus tachycardia by electrocardiogram (Acute) Hyperglycemia, unspecified (Acute) Objective: Chest x-ray was personally reviewed and does show a right lower lobe infiltrate. - Physical Exam General: Alert, Oriented x3, Cooperative, No apparent distress, - - Morbidly obese. No conversational dyspnea. HEENT: Atraumatic, PERRLA, EOMI, Normocephalic, - - No scleral icterus or injection noted. Oral: Moist Mucosa, No Gingival or Mucosal Lesions/ Ulcerations Neck: Supple, No JVD, No Nodes, Trachea Midline Lungs: No rhonchi, No rales, Diminished, Wheezes - Right greater than left, - - Symmetric expansion. No dullness to percussion. Cardiovascular: Regular rate, Regular Rhythm, Normal S1, Normal S2, No rub noted, No Gallop, - - Grade 2 out of 6 systolic ejection murmur at the right sternal border Abdomen: Bowel Sounds Present, Soft, Non Tender, Non-Distended, Obese Extremities: No clubbing, No cyanosis, Edema - 1-2+ lower extremity Skin: No rashes, No breakdown Musculoskeletal: No Tenderness to Palpation of Joints or Extremities Lymphatic: No Cervical, Supraclavicular, or Inguinal Adenopathy Neurological: Cranial nerves II-XII grossly intact, Neuro grossly intact, Motor Exam 5/5 strength throughout Psych/Mental Status: Alert and oriented to time, place, person, mood and affect Vital Signs Temp Pulse Resp BP Pulse Ox 37.4 C H 86 21 H 172/78 H 97 11/05/18 06:00 11/05/18 06:00 11/05/18 06:00 11/05/18 06:00 11/05/18 06:00 Oxygen Flow Rate (L/min) 3 Oxygen Delivery Method Nasal Cannula Weight: 95.8 kg Body Mass Index (BMI) 40.7 Intake and Output for Last 24 Hours 11/03/18 11/04/18 11/05/18 23:59 23:59 23:59 Intake Total 588 / 588 702 / 702 Output Total 100 / 100 125 / 125 Balance 488 / 488 577 / 577 Microbiology Past 72 Hours 11/04/18 21:25 Legionella Antigen - Final Urine Catheter - Velez 11/04/18 21:25 Streptococcus pneumoniae Antigen (M - Final Urine Catheter - Velze Laboratory Tests Past 24 Hrs 11/04/18 11/04/18 11/04/18 17:15 17:15 17:15 WBC 9.9 RBC 4.06 L Hgb 11.6 L Hct 37.0 MCV 91.1 MCH 28.6 MCHC 31.4 L RDW 15.1 H RDW Differential 50.0 H Plt Count 264 MPV 9.9 Immature Gran % (Auto) 0.500 Neut % (Auto) 87.4 H Lymph % (Auto) 5.1 L [place] % (Auto) 6.4 Eos % (Auto) 0.1 Baso % (Auto) 0.5 Absolute Neuts (auto) 8.7 H Absolute Lymphs (auto) 0.51 L Total Counted Not Reportable Differential Comment SEE COMMENT Platelet Estimate ADEQUATE Anisocytosis RARE Macrocytosis RARE PT 15.0 H INR 1.2 APTT 34.3 Specimen Type Sample Site pH Bicarbonate Actual POC Total CO2 Base Excess O2 Saturation O2 % ABG pCO2 ABG pO2 Tomás Test Respiration Rate O2 Delivery Device Liter Flow EPAP IPAP Blood Gas Notified Whom Blood Gas Notified Time Sodium 135 L Potassium 3.9 Chloride 98 Carbon Dioxide 28.0 Anion Gap 9 BUN 19 H Creatinine 1.26 H Estim Creat Clear Calc 26.86 Est GFR (MDRD) Af Amer 53 L Est GFR (MDRD) Non-Af 44 L BUN/Creatinine Ratio 15.1 Glucose 154 H Lactic Acid Calcium 7.9 L Total Bilirubin 0.50 AST 52 H ALT 36 Alkaline Phosphatase 79 Troponin I B-Natriuretic Peptide Total Protein 6.7 Albumin 2.9 L Globulin 3.8 Albumin/Globulin Ratio 0.8 L 11/04/18 11/04/18 11/04/18 17:15 17:15 17:37 WBC RBC Hgb Hct MCV MCH MCHC RDW RDW Differential Plt Count MPV Immature Gran % (Auto) Neut % (Auto) Lymph % (Auto) [place] % (Auto) Eos % (Auto) Baso % (Auto) Absolute Neuts (auto) Absolute Lymphs (auto) Total Counted Differential Comment Platelet Estimate Anisocytosis Macrocytosis PT INR APTT Specimen Type ART Sample Site R Brachial pH 7.38 Bicarbonate Actual 24.2 POC Total CO2 25 Base Excess -1 O2 Saturation 97 O2 % ABG pCO2 40.7 ABG pO2 97 Tomás Test NA Respiration Rate O2 Delivery Device NRB Mask Liter Flow 15.0 EPAP IPAP Blood Gas Notified Whom ED MD Blood Gas Notified Time 1725 Sodium Potassium Chloride Carbon Dioxide Anion Gap BUN Creatinine Estim Creat Clear Calc Est GFR (MDRD) Af Amer Est GFR (MDRD) Non-Af BUN/Creatinine Ratio Glucose Lactic Acid 2.1 H Calcium Total Bilirubin AST ALT Alkaline Phosphatase Troponin I B-Natriuretic Peptide 549.0 H Total Protein Albumin Globulin Albumin/Globulin Ratio 11/04/18 11/04/18 11/04/18 18:48 20:45 21:25 WBC RBC Hgb Hct MCV MCH MCHC RDW RDW Differential Plt Count MPV Immature Gran % (Auto) Neut % (Auto) Lymph % (Auto) [place] % (Auto) Eos % (Auto) Baso % (Auto) Absolute Neuts (auto) Absolute Lymphs (auto) Total Counted Differential Comment Platelet Estimate Anisocytosis Macrocytosis PT INR APTT Specimen Type ART Sample Site R Brachial pH 7.43 Bicarbonate Actual 24.5 POC Total CO2 26 Base Excess 0 O2 Saturation 97 O2 % 40 ABG pCO2 37.4 ABG pO2 88 Tomás Test NA Respiration Rate 25 O2 Delivery Device Bi / C PAP Liter Flow EPAP 5 IPAP 10 Blood Gas Notified Whom ED Blood Gas Notified Time Sodium Potassium Chloride Carbon Dioxide Anion Gap BUN Creatinine Estim Creat Clear Calc Est GFR (MDRD) Af Amer Est GFR (MDRD) Non-Af BUN/Creatinine Ratio Glucose Lactic Acid 1.2 Calcium Total Bilirubin AST ALT Alkaline Phosphatase Troponin I 5.540 H* B-Natriuretic Peptide Total Protein Albumin Globulin Albumin/Globulin Ratio 11/04/18 11/05/18 11/05/18 23:20 02:03 04:15 WBC 7.7 RBC 3.45 L Hgb 9.8 L Hct 31.2 L MCV 90.4 MCH 28.4 MCHC 31.4 L RDW 15.2 H RDW Differential 49.4 H Plt Count 212 MPV 9.8 Immature Gran % (Auto) 0.700 Neut % (Auto) 92.1 H Lymph % (Auto) 4.2 L [place] % (Auto) 2.6 Eos % (Auto) 0.1 Baso % (Auto) 0.3 Absolute Neuts (auto) 7.1 Absolute Lymphs (auto) 0.32 L Total Counted Not Reportable Differential Comment SCANNED Platelet Estimate Anisocytosis Macrocytosis PT INR APTT Specimen Type Sample Site pH Bicarbonate Actual POC Total CO2 Base Excess O2 Saturation O2 % ABG pCO2 ABG pO2 Tomás Test Respiration Rate O2 Delivery Device Liter Flow EPAP IPAP Blood Gas Notified Whom Blood Gas Notified Time Sodium Potassium Chloride Carbon Dioxide Anion Gap BUN Creatinine Estim Creat Clear Calc Est GFR (MDRD) Af Amer Est GFR (MDRD) Non-Af BUN/Creatinine Ratio Glucose Lactic Acid Calcium Total Bilirubin AST ALT Alkaline Phosphatase Troponin I 5.270 H* 4.070 H* B-Natriuretic Peptide Total Protein Albumin Globulin Albumin/Globulin Ratio 11/05/18 04:15 WBC RBC Hgb Hct MCV MCH MCHC RDW RDW Differential Plt Count MPV Immature Gran % (Auto) Neut % (Auto) Lymph % (Auto) [place] % (Auto) Eos % (Auto) Baso % (Auto) Absolute Neuts (auto) Absolute Lymphs (auto) Total Counted Differential Comment Platelet Estimate Anisocytosis Macrocytosis PT INR APTT Specimen Type Sample Site pH Bicarbonate Actual POC Total CO2 Base Excess O2 Saturation O2 % ABG pCO2 ABG pO2 Tomás Test Respiration Rate O2 Delivery Device Liter Flow EPAP IPAP Blood Gas Notified Whom Blood Gas Notified Time Sodium 136 Potassium 3.7 Chloride 98 Carbon Dioxide 28.0 Anion Gap 10 BUN 26 H Creatinine 1.41 H Estim Creat Clear Calc 24.00 Est GFR (MDRD) Af Amer 46 L Est GFR (MDRD) Non-Af 38 L BUN/Creatinine Ratio 18.4 Glucose 153 H Lactic Acid Calcium 7.4 L Total Bilirubin AST ALT Alkaline Phosphatase Troponin I B-Natriuretic Peptide Total Protein Albumin Globulin Albumin/Globulin Ratio POC Glucose 11/05/18 11/04/18 06:33 21:19 POC Glucose 150 H 103 Clinical Impression(s) from Imaging Studies Chest X-Ray 11/04/18 17:29 IMPRESSION: Right basilar and left perihilar infiltrates. Electronically Signed: Parviz Garcia DO at 17:42 EDT Tel [phone], Service support , Assessment/Plan Active and Suspected Problems Severe sepsis (Acute) Acute respiratory failure with hypoxia (Acute) Right lower lobe pneumonia (Acute) Sinus tachycardia by electrocardiogram (Acute) Hyperglycemia, unspecified (Acute) RECOMMENDATIONS: 1. Continue empiric antibiotic therapy 2. Await cardiology recommendations 3. Reassess blood pressure after morning meds given 4. Wean oxygen as tolerated 5. Agree with empiric bronchodilator and steroid therapy IMPRESSIONS: 1. Acute hypoxic respiratory failure secondary to CAP and probable COPD Patient does have a significant right lower lobe infiltrate on chest x-ray and presented with hypoxic respiratory failure. Patient responded well to BiPAP therapy initially. Patient does have an extensive cardiac history, but overall appears to be relatively fluid appropriate. Patient is on appropriate antibiotics. Patient does have an extensive smoking history, so clinical suspicion for COPD. Reasonable to treat with bronchodilators and steroids given severity of illness. Patient can have pulmonary function tests as an outpatient for quantification and clarification of lung function. If patient continues to do well, possibly could move from the intensive care unit later today. 2. Severe sepsis secondary to community-acquired pneumonia Patient is on appropriate antibiotics at this time. Patient has been immunosuppressed with leflunomide and prednisone and this likely is the etiology of lack of leukocytosis. Blood pressure has been doing well. Patient did receive IV fluids. 3. Non-ST elevation IN Unclear etiology at this time. Patient did have significant troponin leak on presentation. Patient could have had coronary artery disease as she does have multiple areas of stenosis in other arteries. However, patient presented with a saturation of 68% by EMS and this could represent global ischemia. Cardiology has been consulted. 4. Hypertensive urgency Patient with significant elevated blood pressures at this time. Patient does have a history of renal artery stenosis. Will get baseline medications for now and readdress in the future. Would not hold antihypertensives secondary to sepsis at this time as patient appears to be tolerating this well. 5. RA/carotid stenosis/renal artery stenosis/CKD stage III/morbid obesity/advanced age Complicates care, management, recovery and prognosis. Patient is immunosuppressed at baseline, but these have been held. Continue to monitor renal function. Code Visit Inpatient E&M: [id number] Init Hosp L3
--- NOTE | 2018-11-05 07:57 | CON.PCM_ITS ---
Problem List (1) Severe sepsis Status: Acute (2) Acute respiratory failure with hypoxia Status: Acute (3) Right lower lobe pneumonia Status: Acute Qualifiers: Pneumonia type: due to unspecified organism Qualified Code(s): J18.1 - Lobar pneumonia, unspecified organism (4) Chronic renal insufficiency, stage II (mild) Status: Chronic (5) Hypertension Status: Chronic Qualifiers: Hypertension type: essential hypertension Qualified Code(s): I10 - Ess ential (primary) hypertension (6) Carotid stenosis Status: Chronic Qualifiers: Laterality: left Qualified Code(s): I65.22 - Occlusion and stenosis of left carotid artery (7) Renal artery stenosis Status: Chronic (8) Osteoarthritis Status: Chronic (9) Cerebrovascular disease Status: Chronic (10) Barretts esophagus Status: Chronic (11) History of bleeding peptic ulcer Status: Chronic (12) Benign essential hypertension Status: Chronic Reason for Consult Date of Consultation: 11/05/18 Reason for Consultation: Respiratory failure History of Present Illness: The patient is a 77 year old F, with past medical history listed below, who presented to [facility] on 11/04/2018 secondary to worsening cough and shortness of breath over the last 7 to 14 days. Patient reportedly had developed a cough and was trying to treat this conservatively. Patient states she had a coughing episode that almost mainly pass out so the squad was called. Patient was noted to be hypoxic and was placed on a nonrebreather mask and transferred to the ED for evaluation. On arrival to the emergency department, patient was noted to be in significant respiratory distress. Patient did have an ABG showing normal CO2 despite tachypnea. Chest x-ray was obtained showing a large right lower lobe infiltrate. Lactate was noted to be elevated at 2.1, but no leukocytosis. Patient received 3 albuterol aerosol treatments and was still using accessory muscles. Patient was placed on BiPAP therapy and then treated with Levaquin. Patient was admitted to the intensive care unit on BiPAP therapy. Since being in the intensive care unit, patient has remained on nasal cannula oxygen. Patient has been hypertensive and febrile. Patient reports subjective improvement in overall condition. Patient does report a cough and does not normally need nasal cannula oxygen. Patient does report a 40+-pack-year smoking history, but has never been seen by a receiving teller. Patient is never had pulmonary function test previously. Patient denies requiring intensive care previously. Patient does report some mild right chest discomfort, but feels this is improved compared to previous. Patient denies any focal neurologic symptoms. No urinary symptoms have been reported. Patient denies any aspiration events. Review of systems otherwise negative x10 systems. Past Medical History Past Medical History (Chronic Problems): Chronic Problems Chronic renal insufficiency, stage II (mild) (Chronic) Hypertension (Chronic) Carotid stenosis (Chronic) Renal artery stenosis (Chronic) Osteoarthritis (Chronic) Cerebrovascular disease (Chronic) Barretts esophagus (Chronic) History of bleeding peptic ulcer (Chronic) Benign essential hypertension (Chronic) Allergies gabapentin Allergy (Verified 11/04/18 17:22) Unknown nortriptyline Allergy (Verified 11/04/18 17:22) Unknown rofecoxib [From Vioxx] Allergy (Verified 11/04/18 17:22) Unknown tacrolimus Allergy (Verified 11/04/18 17:22) Unknown morphine Adverse Reaction (Verified 11/04/18 17:22) Nausea Home Medications: Ambulatory Orders Medication Instructions Recorded Pantoprazole Sodium [Protonix] 40 mg PO DAILY 12/15/14 Acetaminophen [Tylenol Arthritis] 650 mg PO Q4H PRN PRN 11/04/18 Amlodipine [Norvasc] 2.5 mg PO DAILY 11/04/18 Carvedilol 25 mg PO BID 11/04/18 Chlorthalidone 12.5 mg PO DAILY 11/04/18 Cholecalciferol (VIT D3) [Vitamin 2,000 unit PO DAILY 11/04/18 D] Clopidogrel Bisulfate [Clopidogrel] 75 mg PO DAILY 11/04/18 Coenzyme [id number] E [Co 1 cap PO DAILY 11/04/18 Q-10 with l-Carnitine Sftgl] Labetalol HCl 300 mg PO BID 11/04/18 Leflunomide 20 mg PO DAILY 11/04/18 Pravastatin Sodium 20 mg PO QHS 11/04/18 Prednisone 5 mg PO DAILY 11/04/18 Surgical History: appendectomy, cholecystectomy, hysterectomy, total hip arthroplasty Psychiatric History: No pertinent psych hx [employer]OTH History: No pertinent [employer]OTH history Lives: Alone Smoking Status: Former smoker Tobacco Use: Cigarettes Alcohol: None Drugs: None - *Family History Paternal History Items: No pertinent history Maternal History Items: No pertinent history Review of Systems Comment: See HPI, otherwise negative x10 systems. Patient Problems: Active and Suspected Problems Severe sepsis (Acute) Acute respiratory failure with hypoxia (Acute) Right lower lobe pneumonia (Acute) Sinus tachycardia by electrocardiogram (Acute) Hyperglycemia, unspecified (Acute) Objective: Chest x-ray was personally reviewed and does show a right lower lobe infiltrate. - Physical Exam General: Alert, Oriented x3, Cooperative, No apparent distress, - - Morbidly ob robby. No conversational dyspnea. HEENT: Atraumatic, PERRLA, EOMI, Normocephalic, - - No scleral icterus or injection noted. Oral: Moist Mucosa, No Gingival or Mucosal Lesions/ Ulcerations Neck: Supple, No JVD, No Nodes, Trachea Midline Lungs: No rhonchi, No rales, Diminished, Wheezes - Right greater than left, - - Symmetric expansion. No dullness to percussion. Cardiovascular: Regular rate, Regular Rhythm, Normal S1, Normal S2, No rub noted, No Gallop, - - Grade 2 out of 6 systolic ejection murmur at the right sternal border Abdomen: Bowel Sounds Present, Soft, Non Tender, Non-Distended, Obese Extremities: No clubbing, No cyanosis, Edema - 1-2+ lower extremity Skin: No rashes, No breakdown Musculoskeletal: No Tenderness to Palpation of Joints or Extremities Lymphatic: No Cervical, Supraclavicular, or Inguinal Adenopathy Neurological: Cranial nerves II-XII grossly intact, Neuro grossly intact, Motor Exam 5/5 strength throughout Psych/Mental Status: Alert and oriented to time, place, person, mood and affect Vital Signs Temp Pulse Resp BP Pulse Ox 37.4 C H 86 21 H 172/78 H 97 11/05/18 06:00 11/05/18 06:00 11/05/18 06:00 11/05/18 06:00 11/05/18 06:00 Oxygen Flow Rate (L/min) 3 Oxygen Delivery Method Nasal Cannula Weight: 95.8 kg Body Mass Index (BMI) 40.7 Intake and Output for Last 24 Hours 11/03/18 11/04/18 11/05/18 23:59 23:59 23:59 Intake Total 588 / 588 702 / 702 Output Total 100 / 100 125 / 125 Balance 488 / 488 577 / 577 Microbiology Past 72 Hours 11/04/18 21:25 Legionella Antigen - Final Urine Catheter - Velez 11/04/18 21:25 Streptococcus pneumoniae Antigen (M - Final Urine Catheter - Velez Laboratory Tests Past 24 Hrs 11/04/18 11/04/18 11/04/18 17:15 17:15 17:15 WBC 9.9 RBC 4.06 L Hgb 11.6 L Hct 37.0 MCV 91.1 MCH 28.6 MCHC 31.4 L RDW 15.1 H RDW Differential 50.0 H Plt Count 264 MPV 9.9 Immature Gran % (Auto) 0.500 Neut % (Auto) 87.4 H Lymph % (Auto) 5.1 L Washburn % (Auto) 6.4 Eos % (Auto) 0.1 Baso % (Auto) 0.5 Absolute Neuts (auto) 8.7 H Absolute Lymphs (auto) 0.51 L Total Counted Not Reportable Differential Comment SEE COMMENT Platelet Estimate ADEQUATE Anisocytosis RARE Macrocytosis RARE PT 15.0 H INR 1.2 APTT 34.3 Specimen Type Sample Site pH Bicarbonate Actual POC Total CO2 Base Excess O2 Saturation O2 % ABG pCO2 ABG pO2 Tomás Test Respiration Rate O2 Delivery Device Liter Flow EPAP IPAP Blood Gas Notified Whom Blood Gas Notified Time Sodium 135 L Potassium 3.9 Chloride 98 Carbon Dioxide 28.0 Anion Gap 9 BUN 19 H Creatinine 1.26 H Estim Creat Clear Calc 26.86 Est GFR (MDRD) Af Amer 53 L Est GFR (MDRD) Non-Af 44 L BUN/Creatinine Ratio 15.1 Glucose 154 H Lactic Acid Calcium 7.9 L Total Bilirubin 0.50 AST 52 H ALT 36 Alkaline Phosphatase 79 Troponin I B-Natriuretic Peptide Total Protein 6.7 Albumin 2.9 L Globulin 3.8 Albumin/Globulin Ratio 0.8 L 11/04/18 11/04/18 11/04/18 17:15 17:15 17:37 WBC RBC Hgb Hct MCV MCH MCHC RDW RDW Differential Plt Count MPV Immature Gran % (Auto) Neut % (Auto) Lymph % (Auto) Washburn % (Auto) Eos % (Auto) Baso % (Auto) Absolute Neuts (auto) Absolute Lymphs (auto) Total Counted Differential Comment Platelet Estimate Anisocytosis Macrocytosis PT INR APTT Specimen Type ART Sample Site R Brachial pH 7.38 Bicarbonate Actual 24.2 POC Total CO2 25 Base Excess -1 O2 Saturation 97 O2 % ABG pCO2 40.7 ABG pO2 97 Tomás Test NA Respiration Rate O2 Delivery Device NRB Mask Liter Flow 15.0 EPAP IPAP Blood Gas Notified Whom ED MD Blood Gas Notified Time 1725 Sodium Potassium Chloride Carbon Dioxide Anion Gap BUN Creatinine Estim Creat Clear Calc Est GFR (MDRD) Af Amer Est GFR (MDRD) Non-Af BUN/Creatinine Ratio Glucose Lactic Acid 2.1 H Calcium Total Bilirubin AST ALT Alkaline Phosphatase Troponin I B-Natriuretic Peptide 549.0 H Total Protein Albumin Globulin Albumin/Globulin Ratio 11/04/18 11/04/18 11/04/18 18:48 20:45 21:25 WBC RBC Hgb Hct MCV MCH MCHC RDW RDW Differential Plt Count MPV Immature Gran % (Auto) Neut % (Auto) Lymph % (Auto) Washburn % (Auto) Eos % (Auto) Baso % (Auto) Absolute Neuts (auto) Absolute Lymphs (auto) Total Counted Differential Comment Platelet Estimate Anisocytosis Macrocytosis PT INR APTT Specimen Type ART Sample Site R Brachial pH 7.43 Bicarbonate Actual 24.5 POC Total CO2 26 Base Excess 0 O2 Saturation 97 O2 % 40 ABG pCO2 37.4 ABG pO2 88 Tomás Test NA Respiration Rate 25 O2 Delivery Device Bi / C PAP Liter Flow EPAP 5 IPAP 10 Blood Gas Notified Whom ED MD Blood Gas Notified Time Sodium Potassium Chloride Carbon Dioxide Anion Gap BUN Creatinine Estim Creat Clear Calc Est GFR (MDRD) Af Amer Est GFR (MDRD) Non-Af BUN/Creatinine Ratio Glucose Lactic Acid 1.2 Calcium Total Bilirubin AST ALT Alkaline Phosphatase Troponin I 5.540 H* B-Natriuretic Peptide Total Protein Albumin Globulin Albumin/Globulin Ratio 11/04/18 11/05/18 11/05/18 23:20 02:03 04:15 WBC 7.7 RBC 3.45 L Hgb 9.8 L Hct 31.2 L MCV 90.4 MCH 28.4 MCHC 31.4 L RDW 15.2 H RDW Differential 49.4 H Plt Count 212 MPV 9.8 Immature Gran % (Auto) 0.700 Neut % (Auto) 92.1 H Lymph % (Auto) 4.2 L Washburn % (Auto) 2.6 Eos % (Auto) 0.1 Baso % (Auto) 0.3 Absolute Neuts (auto) 7.1 Absolute Lymphs (auto) 0.32 L Total Counted Not Reportable Differential Comment SCANNED Platelet Estimate Anisocytosis Macrocytosis PT INR APTT Specimen Type Sample Site pH Bicarbonate Actual POC Total CO2 Base Excess O2 Saturation O2 % ABG pCO2 ABG pO2 Tomás Test Respiration Rate O2 Delivery Device Liter Flow EPAP IPAP Blood Gas Notified Whom Blood Gas Notified Time Sodium Potassium Chloride Carbon Dioxide Anion Gap BUN Creatinine Estim Creat Clear Calc Est GFR (MDRD) Af Amer Est GFR (MDRD) Non-Af BUN/Creatinine Ratio Glucose Lactic Acid Calcium Total Bilirubin AST ALT Alkaline Phosphatase Troponin I 5.270 H* 4.070 H* B-Natriuretic Peptide Total Protein Albumin Globulin Albumin/Globulin Ratio 11/05/18 04:15 WBC RBC Hgb Hct MCV MCH MCHC RDW RDW Differential Plt Count MPV Immature Gran % (Auto) Neut % (Auto) Lymph % (Auto) Washburn % (Auto) Eos % (Auto) Baso % (Auto) Absolute Neuts (auto) Absolute Lymphs (auto) Total Counted Differential Comment Platelet Estimate Anisocytosis Macrocytosis PT INR APTT Specimen Type Sample Site pH Bicarbonate Actual POC Total CO2 Base Excess O2 Saturation O2 % ABG pCO2 ABG pO2 Tomás Test Respiration Rate O2 Delivery Device Liter Flow EPAP IPAP Blood Gas Notified Whom Blood Gas Notified Time Sodium 136 Potassium 3.7 Chloride 98 Carbon Dioxide 28.0 Anion Gap 10 BUN 26 H Creatinine 1.41 H Estim Creat Clear Calc 24.00 Est GFR (MDRD) Af Amer 46 L Est GFR (MDRD) Non-Af 38 L BUN/Creatinine Ratio 18.4 Glucose 153 H Lactic Acid Calcium 7.4 L Total Bilirubin AST ALT Alkaline Phosphatase Troponin I B-Natriuretic Peptide Total Protein Albumin Globulin Albumin/Globulin Ratio POC Glucose 11/05/18 11/04/18 06:33 21:19 POC Glucose 150 H 103 Clinical Impression(s) from Imaging Studies Chest X-Ray 11/04/18 17:29 IMPRESSION: Right basilar and left perihilar infiltrates. Electronically Signed: Parviz Garcia DO at 17:42 EDT Tel [phone], Service support , Assessment/Plan Active and Suspected Problems Severe sepsis (Acute) Acute respiratory failure with hypoxia (Acute) Right lower lobe pneumonia (Acute) Sinus tachycardia by electrocardiogram (Acute) Hyperglycemia, unspecified (Acute) RECOMMENDATIONS: 1. Continue empiric antibiotic therapy 2. Await cardiology recommendations 3. Reassess blood pressure after morning meds given 4. Wean oxygen as tolerated 5. Agree with empiric bronchodilator and steroid therapy IMPRESSIONS: 1. Acute hypoxic respiratory failure secondary to CAP and probable COPD Patient does have a significant right lower lobe infiltrate on chest x-ray and presented with hypoxic respiratory failure. Patient responded well to BiPAP therapy initially. Patient does have an extensive cardiac history, but overall appears to be relatively fluid appropriate. Patient is on appropriate antibiotics. Patient does have an extensive smoking history, so clinical suspicion for COPD. Reasonable to treat with bronchodilators and steroids given severity of illness. Patient can have pulmonary function tests as an outpatient for quantification and clarification of lung function. If patient continues to do well, possibly could move from the intensive care unit later today. 2. Severe sepsis secondary to community-acquired pneumonia Patient is on appropriate antibiotics at this time. Patient has been immunosuppressed with leflunomide and prednisone and this likely is the etiology of lack of leukocytosis. Blood pressure has been doing well. Patient did receive IV fluids. 3. Non-ST elevation [place] Unclear etiology at this time. Patient did have significant troponin leak on presentation. Patient could have had coronary artery disease as she does have multiple areas of stenosis in other arteries. However, patient presented with a saturation of 68% by EMS and this could represent global ischemia. Cardiology has been consulted. 4. Hypertensive urgency Patient with significant elevated blood pressures at this time. Patient does have a history of renal artery stenosis. Will get baseline medications for now and readdress in the future. Would not hold antihypertensives secondary to sepsis at this time as patient appears to be tolerating this well. 5. RA/carotid stenosis/renal artery stenosis/CKD stage III/morbid obesity/advanced age Complicates care, management, recovery and prognosis. Patient is im munosuppressed at baseline, but these have been held. Continue to monitor renal function. Code Visit Inpatient E&M: 08867 Init Hosp L3
[2018-11-05] MEDS: Labetalol 200 MG Tablet 300 MG PO (07:59)
[2018-11-05] MEDS: Carvedilol 25 MG Tablet PO (07:59)
[2018-11-05] MEDS: amLODIPine 2.5 MG Tablet PO (07:59)
[2018-11-05] MEDS: Insulin Lispro 100 UNIT/ML INSULN.PEN SQ ×3 (08:43→17:09)
--- NOTE | 2018-11-05 09:13 | EKG12_ITS ---
Test Reason : Blood Pressure : / mmHG Vent. Rate : 077 BPM Atrial Rate : 077 BPM P-R Int : 158 ms QRS Dur : 076 ms QT Int : 478 ms P-R-T Axes : -23 042 084 degrees QTc Int : 540 ms Normal sinus rhythm Prolonged QT Abnormal ECG Confirmed by ANA FLOR, MAKENNA ([id number]), editorial writer TRICE LOPEZ ([id number]) on 11/12/2018 6:53:50 AM Referred By: Gabrielle Lam Confirmed By:MAKENNA PEREZ MD
[2018-11-05 09:45] LABS: Cholesterol 93 mg/dL (200); High Density Lipoprotein 29 mg/dL; Triglycerides 125 mg/dL; Very Low Density Lipoprotein 25 mg/dL (5-40)
[2018-11-05] MEDS: Clopidogrel Bisulfate 300 MG Tablet PO (10:26)
[2018-11-05] MEDS: Aspirin 325 MG Tablet PO (10:26)
[2018-11-05] MEDS: Chlorthalidone 50 MG Tablet 12.5 MG PO (10:27)
[2018-11-05] MEDS: Ipratropium/Albuterol Sulfate 3 ML AMPUL.NEB INHALATION ×3 (11:03→18:54)
--- NOTE | 2018-11-05 11:23 | CASEMGMT ---
RN CM Assessment Presentation: Severe sepsis, acute respiratory failure with hypoxia. Intro role of CM and purpose of RN CM assessment to patient in ICU. Pt is alert, oriented and able to partcipate in assessment. Demographics, PCP and Pharmacy verified. PCP: Dr. Ed Villegas Specialists: Dr. Cerda Preferred Pharmacy: [facility] Insurance: [facility] Prescription Benefit: yes LNOK: Ottoniel fleming Living Arrangements: Lives in downstairs of daughter's home. One flight down to her living area, pt states she is safe on stairway, uses cane for support, has handrail. Independent in ADL. Denies needing care assistance. Pt did state she has difficulty cleaning her living area and is considering having hothouse worker come to assist. Transportation: Drives, or family can drive. DME: Cane, rollator, shower chair. (No home oxygen or Cpap used). HHC: [facility] past. Pt is agreeable to Home Care if recommended. Patient DC goals: Home DC PLAN: Home
[2018-11-05 12:36] LABS: Bedside Glucose 233 mg/dL (70-110)
--- NOTE | 2018-11-05 12:45 | PCM.PN.HOSP ---
Patient Problems: Active and Suspected Problems Severe sepsis (Acute) Acute respiratory failure with hypoxia (Acute) Right lower lobe pneumonia (Acute) Sinus tachycardia by electrocardiogram (Acute) Hyperglycemia, unspecified (Acute) Subjective: Feeling better than when she came in, she is breathing easier. Vitals/I&O's: Vital Signs Temp Pulse Resp BP Pulse Ox 100.1 F H 79 20 H 116/50 L 97 11/05/18 11:00 11/05/18 11:03 11/05/18 11:03 11/05/18 11:00 11/05/18 11:53 Oxygen Flow Rate (L/min) 2 Oxygen Delivery Method Nasal Cannula Weight: 211 lb 3.245 oz Body Mass Index (BMI) 40.7 Intake and Output for Last 24 Hours 11/03/18 11/04/18 11/05/18 23:59 23:59 23:59 Intake Total 588 / 588 1182 / 1182 Output Total 100 / 100 225 / 225 Balance 488 / 488 957 / 957 General: Alert, Oriented x3, Cooperative, No apparent distress HEENT: Atraumatic, PERRLA, EOMI, Normocephalic Oral: Moist Mucosa Neck: Supple, No JVD Lungs: Clear to auscultation, Normal air movement, No rhonchi, No wheeze, No rales Cardiovascular: Regular rate, Regular Rhythm, Normal S1, Normal S2, No murmurs Abdomen: Soft, Non Tender, Non-Distended, No Hepato-splenomegaly Extremities: No edema, Capillary Refill Less than 3 Seconds Skin: No rashes, No breakdown Neurological: Neuro grossly intact, Sensory exam intact to light touch and pain Psych/Mental Status: Normal Affect, Appropriate Microbiology Past 72 Hours 11/04/18 21:25 Urine Catheter - Velez Legionella Antigen - Final 11/04/18 21:25 Urine Catheter - Velez Streptococcus pneumoniae Antigen (M - Final Laboratory Results 11/04/18 17:15: WBC 9.9, RBC 4.06 L, Hgb 11.6 L, Hct 37.0, MCV 91.1, MCH 28.6, MCHC 31.4 L, RDW 15.1 H, RDW Differential 50.0 H, Plt Count 264, MPV 9.9, Immature Gran % (Auto) 0.500, Neut % (Auto) 87.4 H, Lymph % (Auto) 5.1 L, Anderson % (Auto) 6.4, Eos % (Auto) 0.1, Baso % (Auto) 0.5, Absolute Neuts (auto) 8.7 H, Absolute Lymphs (auto) 0.51 L, Total Counted Not Reportable, Differential Comment SEE COMMENT, Platelet Estimate ADEQUATE, Anisocytosis RARE, Macrocytosis RARE 11/04/18 17:15: PT 15.0 H, INR 1.2, APTT 34.3 11/04/18 17:15: Sodium 135 L, Potassium 3.9, Chloride 98, Carbon Dioxide 28.0, Anion Gap 9, BUN 19 H, Creatinine 1.26 H, Estim Creat Clear Calc 26.86, Est GFR (MDRD) Af Amer 53 L, Est GFR (MDRD) Non-Af 44 L, BUN/Creatinine Ratio 15.1, Glucose 154 H, Calcium 7.9 L, Total Bilirubin 0.50, AST 52 H, ALT 36, Alkaline Phosphatase 79, Total Protein 6.7, Albumin 2.9 L, Globulin 3.8, Albumin/Globulin Ratio 0.8 L 11/04/18 17:15: Lactic Acid 2.1 H 11/04/18 17:15: B-Natriuretic Peptide 549.0 H 11/04/18 17:37: Specimen Type ART, Sample Site R Brachial, pH 7.38, Bicarbonate Actual 24.2, POC Total CO2 25, Base Excess -1, O2 Saturation 97, ABG pCO2 40.7, ABG pO2 97, Tomás Test NA, O2 Delivery Device NRB Mask, Liter Flow 15.0, Blood Gas Notified Whom ED , Blood Gas Notified Time 1725 11/04/18 18:48: Specimen Type ART, Sample Site R Brachial, pH 7.43, Bicarbonate Actual 24.5, POC Total CO2 26, Base Excess 0, O2 Saturation 97, O2 % 40, ABG pCO2 37.4, ABG pO2 88, Tomás Test NA, Respiration Rate 25, O2 Delivery Device Bi / C PAP, EPAP 5, IPAP 10, Blood Gas Notified Whom ED 11/04/18 20:45: Troponin I 5.540 H* 11/04/18 21:19: POC Glucose 103 11/04/18 21:25: Lactic Acid 1.2 11/04/18 23:20: Troponin I 5.270 H* 11/05/18 02:03: Troponin I 4.070 H* 11/05/18 04:15: WBC 7.7, RBC 3.45 L, Hgb 9.8 L, Hct 31.2 L, MCV 90.4, MCH 28.4, MCHC 31.4 L, RDW 15.2 H, RDW Differential 49.4 H, Plt Count 212, MPV 9.8, Immature Gran % (Auto) 0.700, Neut % (Auto) 92.1 H, Lymph % (Auto) 4.2 L, Anderson % (Auto) 2.6, Eos % (Auto) 0.1, Baso % (Auto) 0.3, Absolute Neuts (auto) 7.1, Absolute Lymphs (auto) 0.32 L, Total Counted Not Reportable, Differential Comment SCANNED 11/05/18 04:15: Sodium 136, Potassium 3.7, Chloride 98, Carbon Dioxide 28.0, Anion Gap 10, BUN 26 H, Creatinine 1.41 H, Estim Creat Clear Calc 24.00, Est GFR (MDRD) Af Amer 46 L, Est GFR (MDRD) Non-Af 38 L, BUN/Creatinine Ratio 18.4, Glucose 153 H, Calcium 7.4 L 11/05/18 04:15: Triglycerides 125, Cholesterol 93, LDL Cholesterol 39, VLDL Cholesterol 25, HDL Cholesterol 29 L 11/05/18 06:33: POC Glucose 150 H 11/05/18 12:24: POC Glucose 233 H Current Medications Acetaminophen (Tylenol) 650 mg PO Q6H PRN PRN PRN Reason: FEVER Last Admin: 11/04/18 21:09 Dose: 650 mg Albuterol Sulfate (Ventolin Aerosols) 2.5 mg INHALATION Q2H PRN PRN PRN Reason: SHORTNESS OF BREATH Albuterol/Ipratropium (Duoneb) 3 ml INHALATION Q4HWA.RT [facility] Last Admin: 11/05/18 11:03 Dose: 3 ml Amlodipine Besylate (Norvasc) 2.5 mg PO DAILY [facility] Last Admin: 11/05/18 07:59 Dose: 2.5 mg Aspirin (Aspirin, Baby) 81 mg PO DAILY@0800 [facility] Carvedilol (Coreg) 25 mg PO BID [facility] Last Admin: 11/05/18 07:59 Dose: 25 mg Chlorthalidone (Hygroton) 12.5 mg PO DAILY [facility] Last Admin: 11/05/18 10:27 Dose: 12.5 mg Cholecalciferol (Vitamin D) 2,000 unit PO DAILY [facility] Last Admin: 11/05/18 10:26 Dose: 2,000 unit Clopidogrel Bisulfate (Plavix) 75 mg PO DAILY [facility] Dextrose (D50w Syringe) 0 gm IV X1 PRN; Protocol PRN Reason: Hypoglycemia Glucagon () 1 mg IM .X1 PRN PRN Reason: Hypoglycemia Heparin Sodium (Porcine) (Heparin Na) 5,000 unit SC Q8 [facility] Last Admin: 11/05/18 05:20 Dose: 5,000 unit Sodium Chloride () 250 mls @ 15 mls/hr IV .[id number] PRN PRN Reason: SALINE FLUSH Azithromycin 500 mg/ Dextrose 255 mls @ 250 mls/hr IV Q24 [facility] Stop: 11/06/18 11:02 Last Admin: 11/05/18 10:27 Dose: 250 mls/hr Ceftriaxone Sodium (Rocephin) 1 gm in 50 mls @ 100 mls/hr IV Q24@2200 [facility] Last Admin: 11/04/18 21:17 Dose: 100 mls/hr Insulin Human Lispro (Humalog Kwikpen (Bkc)) 0 unit SQ ACHS [facility]; Protocol Last Admin: 11/05/18 12:29 Dose: 2 u Labetalol HCl (Trandate) 300 mg PO BID [facility] Last Admin: 11/05/18 07:59 Dose: 300 mg Methylprednisolone (Solu-Medrol) 40 mg IV Q8 [facility] Last Admin: 11/05/18 05:20 Dose: 40 mg Sodium Chloride () 5 - 15 ml IV UD PRN PRN Reason: SALINE FLUSH Medical Necessity - Tobacco Use Smoking Status: Former smoker Tobacco Use: Cigarettes Assessment/Plan All Active Problems Severe sepsis (Acute) Acute respiratory failure with hypoxia (Acute) Right lower lobe pneumonia (Acute) Sinus tachycardia by electrocardiogram (Acute) Hyperglycemia, unspecified (Acute) Dehydration (Acute) Acute kidney insufficiency (Acute) 1. Sepsis and acute hypoxic respiratory failure secondary to bilateral CAP secondary to gram-positive organisms -She is currently off BiPAP and on 2 L nasal cannula oxygenating well -Because of her RA she is on leflunomide and prednisone -Continue with IV Rocephin and azithromycin -She states that she is to be a smoker but has no formal diagnosis of COPD, will continue with aerosols and IV prednisone 2. HTN/CKD stage III/history of carotid stenosis status post endarterectomies/renal artery stenosis status post stent/elevated troponin -Blood pressure stable continue her home medications -We will continue with her home Plavix -Her troponin is trending down and this is likely secondary to the fact that her oxygen status was 68% on room air on admission. -She will likely need cardiac evaluation as an outpatient after discharge -Creatinine today is 1.41 which is at baseline 3. RA -She is on leflunomide and prednisone at home -These are both on hold currently but can be restarted when she goes home DVT: Heparin Code Visit Inpatient E&M: 37401 Subs Hosp L2
--- NOTE | 2018-11-05 12:56 | CHAPLAIN ---
Type of Pastoral Visit _x__ Initial Visit ___ Follow-up Visit ___ On-call Visit ___ General Patient Visit ___ Spiritual Assessment ___ Family Conference ___ Bereavement ___ Rapid Response ___ Code Blue ___ Other (describe below) Pastoral Care Referral From _x__ Patient ___ Family ___ Nurse ___ Physician ___ Concrete Laborer ___ Pharmacy Helper ___ Other (describe below) Sacrament/Intervention _x__ Active listening ___ Anointing ___ Shinto ___ Bereavement ___ Communion ___ Amita exploration ___ ___ Life review _x__ Prayer ___ Reconciliation ___ Sacrament of Sick _x__ Supportive presence ___ Wedding ___ Other (describe below) Pastoral Comments
--- NOTE | 2018-11-05 13:04 | PN_ITS ---
Patient Problems: Active and Suspected Problems Severe sepsis (Acute) Acute respiratory failure with hypoxia (Acute) Right lower lobe pneumonia (Acute) Sinus tachycardia by electrocardiogram (Acute) Hyperglycemia, unspecified (Acute) Subjective: Feeling better than when she came in, she is breathing easier. Vitals/I&O's: Vital Signs Temp Pulse Resp BP Pulse Ox 100.1 F H 79 20 H 116/50 L 97 11/05/18 11:00 11/05/18 11:03 11/05/18 11:03 11/05/18 11:00 11/05/18 11:53 Oxygen Flow Rate (L/min) 2 Oxygen Delivery Method Nasal Cannula Weight: 211 lb 3.245 oz Body Mass Index (BMI) 40.7 Intake and Output for Last 24 Hours 11/03/18 11/04/18 11/05/18 23:59 23:59 23:59 Intake Total 588 / 588 1182 / 1182 Output Total 100 / 100 225 / 225 Balance 488 / 488 957 / 957 General: Alert, Oriented x3, Cooperative, No apparent distress HEENT: Atraumatic, PERRLA, EOMI, Normocephalic Oral: Moist Mucosa Neck: Supple, No JVD Lungs: Clear to auscultation, Normal air movement, No rhonchi, No wheeze, No rales Cardiovascular: Regular rate, Regular Rhythm, Normal S1, Normal S2, No murmurs Abdomen: Soft, Non Tender, Non-Distended, No Hepato-splenomegaly Extremities: No edema, Capillary Refill Less than 3 Seconds Skin: No rashes, No breakdown Neurological: Neuro grossly intact, Sensory exam intact to light touch and pain Psych/Mental Status: Normal Affect, Appropriate Microbiology Past 72 Hours 11/04/18 21:25 Urine Catheter - Velez Legionella Antigen - Final 11/04/18 21:25 Urine Catheter - Velez Streptococcus pneumoniae Antigen (M - Final Laboratory Results 11/04/18 17:15: WBC 9.9, RBC 4.06 L, Hgb 11.6 L, Hct 37.0, MCV 91.1, MCH 28.6, MCHC 31.4 L, RDW 15.1 H, RDW Differential 50.0 H, Plt Count 264, MPV 9.9, Immature Gran % (Auto) 0.500, Neut % (Auto) 87.4 H, Lymph % (Auto) 5.1 L, Hand % (Auto) 6.4, Eos % (Auto) 0.1, Baso % (Auto) 0.5, Absolute Neuts (auto) 8.7 H, Absolute Lymphs (auto) 0.51 L, Total Counted Not Reportable, Differential Comment SEE COMMENT, Platelet Estimate ADEQUATE, Anisocytosis RARE, Macrocytosis RARE 11/04/18 17:15: PT 15.0 H, INR 1.2, APTT 34.3 11/04/18 17:15: Sodium 135 L, Potassium 3.9, Chloride 98, Carbon Dioxide 28.0, Anion Gap 9, BUN 19 H, Creatinine 1.26 H, Estim Creat Clear Calc 26.86, Est GFR (MDRD) Af Amer 53 L, Est GFR (MDRD) Non-Af 44 L, BUN/Creatinine Ratio 15.1, Glucose 154 H, Calcium 7.9 L, Total Bilirubin 0.50, AST 52 H, ALT 36, Alkaline Phosphatase 79, Total Protein 6.7, Albumin 2.9 L, Globulin 3.8, Albumin/Globulin Ratio 0.8 L 11/04/18 17:15: Lactic Acid 2.1 H 11/04/18 17:15: B-Natriuretic Peptide 549.0 H 11/04/18 17:37: Specimen Type ART, Sample Site R Brachial, pH 7.38, Bicarbonate Actual 24.2, POC Total CO2 25, Base Excess -1, O2 Saturation 97, ABG pCO2 40.7, ABG pO2 97, Tomás Test NA, O2 Delivery Device NRB Mask, Liter Flow 15.0, Blood Gas Notified Whom ED , Blood Gas Notified Time 1725 11/04/18 18:48: Specimen Type ART, Sample Site R Brachial, pH 7.43, Bicarbonate Actual 24.5, POC Total CO2 26, Base Excess 0, O2 Saturation 97, O2 % 40, ABG pCO2 37.4, ABG pO2 88, Tomás Test NA, Respiration Rate 25, O2 Delivery Device Bi / C PAP, EPAP 5, IPAP 10, Blood Gas Notified Whom ED 11/04/18 20:45: Troponin I 5.540 H* 11/04/18 21:19: POC Glucose 103 11/04/18 21:25: Lactic Acid 1.2 11/04/18 23:20: Troponin I 5.270 H* 11/05/18 02:03: Troponin I 4.070 H* 11/05/18 04:15: WBC 7.7, RBC 3.45 L, Hgb 9.8 L, Hct 31.2 L, MCV 90.4, MCH 28.4, MCHC 31.4 L, RDW 15.2 H, RDW Differential 49.4 H, Plt Count 212, MPV 9.8, Immature Gran % (Auto) 0.700, Neut % (Auto) 92.1 H, Lymph % (Auto) 4.2 L, Hand % (Auto) 2.6, Eos % (Auto) 0.1, Baso % (Auto) 0.3, Absolute Neuts (auto) 7.1, Absolute Lymphs (auto) 0.32 L, Total Counted Not Reportable, Differential Comment SCANNED 11/05/18 04:15: Sodium 136, Potassium 3.7, Chloride 98, Carbon Dioxide 28.0, Anion Gap 10, BUN 26 H, Creatinine 1.41 H, Estim Creat Clear Calc 24.00, Est GFR (MDRD) Af Amer 46 L, Est GFR (MDRD) Non-Af 38 L, BUN/Creatinine Ratio 18.4, Glucose 153 H, Calcium 7.4 L 11/05/18 04:15: Triglycerides 125, Cholesterol 93, LDL Cholesterol 39, VLDL Cholesterol 25, HDL Cholesterol 29 L 11/05/18 06:33: POC Glucose 150 H 11/05/18 12:24: POC Glucose 233 H Current Medications Acetaminophen (Tylenol) 650 mg PO Q6H PRN PRN PRN Reason: FEVER Last Admin: 11/04/18 21:09 Dose: 650 mg Albuterol Sulfate (Ventolin Aerosols) 2.5 mg INHALATION Q2H PRN PRN PRN Reason: SHORTNESS OF BREATH Albuterol/Ipratropium (Duoneb) 3 ml INHALATION Q4HWA.RT REPLACED BY [facility] Last Admin: 11/05/18 11:03 Dose: 3 ml Amlodipine Besylate (Norvasc) 2.5 mg PO DAILY REPLACED BY [facility] Last Admin: 11/05/18 07:59 Dose: 2.5 mg Aspirin (Aspirin, Baby) 81 mg PO DAILY@0800 REPLACED BY [facility] Carvedilol (Coreg) 25 mg PO BID REPLACED BY [facility] Last Admin: 11/05/18 07:59 Dose: 25 mg Chlorthalidone (Hygroton) 12.5 mg PO DAILY REPLACED BY [facility] Last Admin: 11/05/18 10:27 Dose: 12.5 mg Cholecalciferol (Vitamin D) 2,000 unit PO DAILY REPLACED BY [facility] Last Admin: 11/05/18 10:26 Dose: 2,000 unit Clopidogrel Bisulfate (Plavix) 75 mg PO DAILY REPLACED BY [facility] Dextrose (D50w Syringe) 0 gm IV X1 PRN; Protocol PRN Reason: Hypoglycemia Glucagon () 1 mg IM .X1 PRN PRN Reason: Hypoglycemia Heparin Sodium (Porcine) (Heparin Na) 5,000 unit SC Q8 REPLACED BY [facility] Last Admin: 11/05/18 05:20 Dose: 5,000 unit Sodium Chloride () 250 mls @ 15 mls/hr IV .[id number] PRN PRN Reason: SALINE FLUSH Azithromycin 500 mg/ Dextrose 255 mls @ 250 mls/hr IV Q24 REPLACED BY [facility] Stop: 11/06/18 11:02 Last Admin: 11/05/18 10:27 Dose: 250 mls/hr Ceftriaxone Sodium (Rocephin) 1 gm in 50 mls @ 100 mls/hr IV Q24@2200 REPLACED BY [facility] Last Admin: 11/04/18 21:17 Dose: 100 mls/hr Insulin Human Lispro (Humalog Kwikpen (Bkc)) 0 unit SQ ACHS REPLACED BY [facility]; Protocol Last Admin: 11/05/18 12:29 Dose: 2 u Labetalol HCl (Trandate) 300 mg PO BID REPLACED BY [facility] Last Admin: 11/05/18 07:59 Dose: 300 mg Methylprednisolone (Solu-Medrol) 40 mg IV Q8 REPLACED BY [facility] Last Admin: 11/05/18 05:20 Dose: 40 mg Sodium Chloride () 5 - 15 ml IV UD PRN PRN Reason: SALINE FLUSH Medical Necessity - Tobacco Use Smoking Status: Former smoker Tobacco Use: Cigarettes Assessment/Plan All Active Problems Severe sepsis (Acute) Acute respiratory failure with hypoxia (Acute) Right lower lobe pneumonia (Acute) Sinus tachycardia by electrocardiogram (Acute) Hyperglycemia, unspecified (Acute) Dehydration (Acute) Acute kidney insufficiency (Acute) 1. Sepsis and acute hypoxic respiratory failure secondary to bilateral CAP se condary to gram-positive organisms -She is currently off BiPAP and on 2 L nasal cannula oxygenating well -Because of her RA she is on leflunomide and prednisone -Continue with IV Rocephin and azithromycin -She states that she is to be a smoker but has no formal diagnosis of COPD, will continue with aerosols and IV prednisone 2. HTN/CKD stage III/history of carotid stenosis status post endarterec tomies/renal artery stenosis status post stent/elevated troponin -Blood pressure stable continue her home medications -We will continue with her home Plavix -Her troponin is trending down and this is likely secondary to the fact that her oxygen status was 68% on room air on admission. -She will likely need cardiac evaluation as an outpatient after discharge -Creatinine today is 1.41 which is at baseline 3. RA -She is on leflunomide and prednisone at home -These are both on hold currently but can be restarted when she goes home DVT: Heparin Code Visit Inpatient E&M: 97170 Subs Hosp L2
--- NOTE | 2018-11-05 13:38 | PCM.CONS.C ---
Problem List (1) NSTEMI (non-ST elevated myocardial infarction) Status: Acute (2) Severe sepsis Status: Acute (3) Acute respiratory failure with hypoxia Status: Acute (4) Pneumonia Status: Acute (5) Carotid stenosis Status: Chronic Qualifiers: Laterality: left Qualified Code(s): I65.22 - Occlusion and stenosis of left carotid artery (6) Renal artery stenosis Status: Chronic (7) HLD (hyperlipidemia) Status: Chronic (8) Hypertension Status: Chronic Qualifiers: Hypertension type: essential hypertension Qualified Code(s): I10 - Essential (primary) hypertension Reason for Consult Date of Consultation: 11/05/18 History of Present Illness: The patient is a 77 year old white female who has a past medical history which is included hyperlipidemia, hypertension, peripheral arterial occlusive disease with carotid artery disease status post revascularization therapy both percutaneous and surgical and renal artery disease status post revascularization therapy reported as both percutaneous and surgical who presents for evaluation of abnormal cardiac enzymes compatible with an acute non-ST segment elevation IL in the setting of sepsis thought secondary to an underlying acute respiratory related issues with hypoxemia (O2 saturation being reported as low as 65% on room air) thought secondary to underlying pneumonia. The patient states that she has had her peripheral vascular evaluation performed locally and at the [facility] Main campus. She states she has had percutaneous procedures performed as well as surgical-based procedures performed with what she believes to be graft harvesting from her inner thighs to be used for both her carotid areas and her renal areas. She recalls undergoing noninvasive cardiovascular evaluation but never an invasive cardiovascular evaluation. To the best of her knowledge she has never been diagnosed with CAD or CHF or valvular heart disease or cardiac dysrhythmias, etc. She notes recently she has been feeling progressively ill. She has been short of breath and coughing. She subsequently was brought to the emergency department based upon the aforementioned concerns where she was found to be hypoxic on room air with an O2 saturation reported as low as 65%. She was subsequently placed in the ICU for further evaluation and care. She was found to be febrile with temperatures up to 102. She has been diagnosed with an underlying pneumonia right-sided greater than left-sided. She has started medical therapy with O2 support and antibiotic support. She states overall she does feel better. However in the interim she has had cardiac enzymes performed. They were noted to be positive compatible with an acute non-ST segment elevation IL. Her ECG demonstrated sinus rhythm with no acute ECG changes. Her chest x-ray was noted to show bilateral infiltrates predominantly more right-sided than left-sided. She has continued medical management. At the present time she denies ongoing chest discomfort. She does state her breathing has improved. There has been no evidence prior to this event of ongoing chest discomfort, orthopnea, PND, near syncope or syncope. She states she has had waxing and waning lower extremity edema over time. [] Past Medical History Allergies/Adverse Reactions: Allergies gabapentin Allergy (Verified 11/04/18 17:22) Unknown nortriptyline Allergy (Verified 11/04/18 17:22) Unknown rofecoxib [From Vioxx] Allergy (Verified 11/04/18 17:22) Unknown tacrolimus Allergy (Verified 11/04/18 17:22) Unknown morphine Adverse Reaction (Verified 11/04/18 17:22) Nausea Home Medications: Ambulatory Orders Medication Instructions Recorded Pantoprazole Sodium [Protonix] 40 mg PO DAILY 12/15/14 Acetaminophen [Tylenol Arthritis] 650 mg PO Q4H PRN PRN 11/04/18 Amlodipine [Norvasc] 2.5 mg PO DAILY 11/04/18 Carvedilol 25 mg PO BID 11/04/18 Chlorthalidone 12.5 mg PO DAILY 11/04/18 Cholecalciferol (VIT D3) [Vitamin 2,000 unit PO DAILY 11/04/18 D] Clopidogrel Bisulfate [Clopidogrel] 75 mg PO DAILY 11/04/18 Coenzyme [id number] [Co 1 cap PO DAILY 11/04/18 Q-10 with l-Carnitine Sftgl] Labetalol HCl 300 mg PO BID 11/04/18 Leflunomide 20 mg PO DAILY 11/04/18 Pravastatin Sodium 20 mg PO QHS 11/04/18 Prednisone 5 mg PO DAILY 11/04/18 Past Medical History (Chronic Problems): Chronic Problems Chronic renal insufficiency, stage II (mild) (Chronic) Hyperglycemia, unspecified (Chronic) Hypertension (Chronic) Carotid stenosis (Chronic) Renal artery stenosis (Chronic) HLD (hyperlipidemia) (Chronic) Osteoarthritis (Chronic) Cerebrovascular disease (Chronic) Barretts esophagus (Chronic) History of bleeding peptic ulcer (Chronic) Benign essential hypertension (Chronic) Surgical History: appendectomy, cholecystectomy, hysterectomy, total hip arthroplasty Psychiatric History: No pertinent psych hx DUCT LAYER History: No pertinent DUCT LAYER history - *Family History Paternal History Items: No pertinent history Maternal History Items: No pertinent history Lives: Alone Smoking Status: Former smoker Tobacco Use: Cigarettes Alcohol: None Drugs: None Review of Systems - Review of Systems General: Denies: Fever, Night Sweats, Fatigue Cardiovascular: Reports: Shortness of Breath, Peripheral Edema. Denies: Chest Discomfort, Orthopnea, PND, Palpitations, Lightheadedness, Dizziness, Near Syncope, Syncope Respiratory: Reports: Cough, Shortness of Breath. Denies: Sputum Production, Hemoptysis Gastrointestinal: Denies: Hematemesis, Hematochezia, Melena Genitourinary: Reports: Dysuria Skin: Denies: Rash Objective: Vital Signs Temp Pulse Resp BP Pulse Ox 100.2 F H 76 18 103/81 H 98 11/05/18 12:00 11/05/18 12:00 11/05/18 12:00 11/05/18 12:00 11/05/18 12:00 Oxygen Flow Rate (L/min) 2 Oxygen Delivery Method Nasal Cannula Weight: 211 lb 3.245 oz Body Mass Index (BMI) 40.7 Intake and Output for Last 24 Hours 11/03/18 11/04/18 11/05/18 23:59 23:59 23:59 Intake Total 588 / 588 1182 / 1182 Output Total 100 / 100 225 / 225 Balance 488 / 488 957 / 957 11/04/18 17:15: WBC 9.9, RBC 4.06 L, Hgb 11.6 L, Hct 37.0, MCV 91.1, MCH 28.6, MCHC 31.4 L, RDW 15.1 H, RDW Differential 50.0 H, Plt Count 264, MPV 9.9, Immature Gran % (Auto) 0.500, Neut % (Auto) 87.4 H, Lymph % (Auto) 5.1 L, [place] % (Auto) 6.4, Eos % (Auto) 0.1, Baso % (Auto) 0.5, Absolute Neuts (auto) 8.7 H, Total Counted Not Reportable 11/04/18 17:15: PT 15.0 H, INR 1.2, APTT 34.3 11/04/18 17:15: Sodium 135 L, Potassium 3.9, Chloride 98, Carbon Dioxide 28.0, Anion Gap 9, BUN 19 H, Creatinine 1.26 H, Est GFR (MDRD) Af Amer 53 L, Est GFR (MDRD) Non-Af 44 L, BUN/Creatinine Ratio 15.1, Glucose 154 H, Calcium 7.9 L, Total Bilirubin 0.50 11/04/18 17:15: Lactic Acid 2.1 H 11/04/18 17:15: B-Natriuretic Peptide 549.0 H 11/04/18 17:37: pH 7.38, Bicarbonate Actual 24.2, POC Total CO2 25, Base Excess -1, O2 Saturation 97, ABG pCO2 40.7, ABG pO2 97, Tomás Test NA 11/04/18 18:48: pH 7.43, Bicarbonate Actual 24.5, POC Total CO2 26, Base Excess 0, O2 Saturation 97, ABG pCO2 37.4, ABG pO2 88, Tomás Test NA 11/04/18 20:45: Troponin I 5.540 H* 11/04/18 21:25: Lactic Acid 1.2 11/04/18 23:20: Troponin I 5.270 H* 11/05/18 02:03: Troponin I 4.070 H* 11/05/18 04:15: WBC 7.7, RBC 3.45 L, Hgb 9.8 L, Hct 31.2 L, MCV 90.4, MCH 28.4, MCHC 31.4 L, RDW 15.2 H, RDW Differential 49.4 H, Plt Count 212, MPV 9.8, Immature Gran % (Auto) 0.700, Neut % (Auto) 92.1 H, Lymph % (Auto) 4.2 L, [place] % (Auto) 2.6, Eos % (Auto) 0.1, Baso % (Auto) 0.3, Absolute Neuts (auto) 7.1, Total Counted Not Reportable 11/05/18 04:15: Sodium 136, Potassium 3.7, Chloride 98, Carbon Dioxide 28.0, Anion Gap 10, BUN 26 H, Creatinine 1.41 H, Est GFR (MDRD) Af Amer 46 L, Est GFR (MDRD) Non-Af 38 L, BUN/Creatinine Ratio 18.4, Glucose 153 H, Calcium 7.4 L 11/05/18 04:15: Triglycerides 125, Cholesterol 93, LDL Cholesterol 39, VLDL Cholesterol 25, HDL Cholesterol 29 L Rhythm: Sinus rhythm EKG: Sinus rhythm ECHO: Pending CXR: As noted above: Please see official report Assessment/Plan 1. Acute non-ST segment elevation IL The patient appears to have findings compatible with acute non-ST segment elevation IL. The etiology is uncertain although there are concerns, based on her cardiovascular risk factors, of underlying CAD. This may be a type II supply demand mismatch event. At the same time contribution from her underlying sepsis syndrome cannot necessarily be excluded. At the present time she is in the ICU and being monitored. She will continue with cardiac enzyme follow-up and ECG follow-up as deemed appropriate. An echocardiogram is pending. She will continue medical therapy. This will include antiplatelet therapy, anticoagulant therapy, nitrates as needed, beta blockers as tolerated, afterload reducing agents as deemed appropriate, and lipid-lowering agents as deemed appropriate. Ideally once she has improved from her respiratory standpoint then she should be considered for further evaluation with diagnostic cardiac catheterization to determine whether or not she truly does have underlying CAD that is thought to be angiographically/hemodynamically significant requiring revascularization therapy. In the interim she will continue medical management. Also an attempt will be made to obtain her previous peripheral vascular records for additional evaluation care/continuity of care. 2. Peripheral arterial occlusive disease She does have a history of significant peripheral arterial occlusive disease. She has been followed by the [facility] peripheral vascular surgery group. An attempt will be made to retrieve medical records for continuity of care purposes. 3. Hyperlipidemia She will continue risk factor evaluation care as deemed appropriate. 5. Hypertension Her blood pressures will be followed. Her medications can be adjusted as needed. 6. Sepsis thought secondary to acute respiratory related issues secondary to acute pneumonia She will continue under evaluation care per internal medicine and pulmonology/critical care medicine. Comment: The patient's case has been discussed and reviewed with patient, her family members present, and Dr. [place] of the [facility] ICU staff. This note was generated with [employer]ome[employer] software. It may contain incorrect words, spelling, and punctuation that were not noted in checking the note before signing.
--- NOTE | 2018-11-05 13:43 | CON.PCM_ITS ---
Problem List (1) NSTEMI (non-ST elevated myocardial infarction) Status: Acute (2) Severe sepsis Status: Acute (3) Acute respiratory failure with hypoxia Status: Acute (4) Pneumonia Status: Acute (5) Carotid stenosis Status: Chronic Qualifiers: Laterality: left Qualified Code(s): I65.22 - Occlusion and stenosis of left carotid artery (6) Renal artery stenosis Status: Chronic (7) HLD (hyperlipidemia) Status: Chronic (8) Hypertension Status: Chronic Qualifiers: Hypertension type: essential hypertension Qualified Code(s): I10 - Essential (primary) hypertension Reason for Consult Date of Consultation: 11/05/18 History of Present Illness: The patient is a 77 year old white female who has a past medical history which is included hyperlipidemia, hypertension, peripheral arterial occlusive disease with carotid artery disease status post revascularization therapy both percutaneous and surgical and renal artery disease status post revascularization therapy reported as both percutaneous and surgical who presents for evaluation of abnormal cardiac enzymes compatible with an acute non-ST segment elevation NC in the setting of sepsis thought secondary to an underlying acute respiratory related issues with hypoxemia (O2 saturation being reported as low as 65% on room air) thought secondary to underlying pneumonia. The patient states that she has had her peripheral vascular evaluation performed locally and at the [facility] Main campus. She states she has had percutaneous procedures performed as well as surgical-based procedures performed with what she believes to be graft harvesting from her inner thighs to be used for both her carotid areas and her renal areas. She recalls undergoing noninvasive cardiovascular evaluation but never an invasive cardiovascular evaluation. To the best of her knowledge she has never been diagnosed with CAD or CHF or valvular heart disease or cardiac dysrhythmias, etc. She notes recently she has been feeling progressively ill. She has been short of breath and coughing. She subsequently was brought to the emergency department based upon the aforementioned concerns where she was found to be hypoxic on room air with an O2 saturation reported as low as 65%. She was subsequently placed in the ICU for further evaluation and care. She was found to be febrile with temperatures up to 102. She has been diagnosed with an underlying pneumonia right-sided greater than left-sided. She has started medical therapy with O2 support and antibiotic support. She states overall she does feel better. However in the interim she has had cardiac enzymes performed. They were noted to be positive compatible with an acute non-ST segment elevation NC. Her ECG demonstrated sinus rhythm with no acute ECG changes. Her chest x-ray was noted to show bilateral infiltrates predominantly more right- sided than left-sided. She has continued medical management. At the present time she denies ongoing chest discomfort. She does state her breathing has improved. There has been no evidence prior to this event of ongoing chest discomfort, orthopnea, PND, near syncope or syncope. She states she has had waxing and waning lower extremity edema over time. [] Past Medical History Allergies/Adverse Reactions: Allergies gabapentin Allergy (Verified 11/04/18 17:22) Unknown nortriptyline Allergy (Verified 11/04/18 17:22) Unknown rofecoxib [From Vioxx] Allergy (Verified 11/04/18 17:22) Unknown tacrolimus Allergy (Verified 11/04/18 17:22) Unknown morphine Adverse Reaction (Verified 11/04/18 17:22) Nausea Home Medications: Ambulatory Orders Medication Instructions Recorded Pantoprazole Sodium [Protonix] 40 mg PO DAILY 12/15/14 Acetaminophen [Tylenol Arthritis] 650 mg PO Q4H PRN PRN 11/04/18 Amlodipine [Norvasc] 2.5 mg PO DAILY 11/04/18 Carvedilol 25 mg PO BID 11/04/18 Chlorthalidone 12.5 mg PO DAILY 11/04/18 Cholecalciferol (VIT D3) [Vitamin 2,000 unit PO DAILY 11/04/18 D] Clopidogrel Bisulfate [Clopidogrel] 75 mg PO DAILY 11/04/18 Coenzyme [id number] E [Co 1 cap PO DAILY 11/04/18 Q-10 with l-Carnitine Sftgl] Labetalol HCl 300 mg PO BID 11/04/18 Leflunomide 20 mg PO DAILY 11/04/18 Pravastatin Sodium 20 mg PO QHS 11/04/18 Prednisone 5 mg PO DAILY 11/04/18 Past Medical History (Chronic Problems): Chronic Problems Chronic renal insufficiency, stage II (mild) (Chronic) Hyperglycemia, unspecified (Chronic) Hypertension (Chronic) Carotid stenosis (Chronic) Renal artery stenosis (Chronic) HLD (hyperlipidemia) (Chronic) Osteoarthritis (Chronic) Cerebrovascular disease (Chronic) Barretts esophagus (Chronic) History of bleeding peptic ulcer (Chronic) Benign essential hypertension (Chronic) Surgical History: appendectomy, cholecystectomy, hysterectomy, total hip arthroplasty Psychiatric History: No pertinent psych hx [employer]IST History: No pertinent [employer]IST history - *Family History Paternal History Items: No pertinent history Maternal History Items: No pertinent history Lives: Alone Smoking Status: Former smoker Tobacco Use: Cigarettes Alcohol: None Drugs: None Review of Systems - Review of Systems General: Denies: Fever, Night Sweats, Fatigue Cardiovascular: Reports: Shortness of Breath, Peripheral Edema. Denies: Chest Discomfort, Orthopnea, PND, Palpitations, Lightheadedness, Dizziness, Near Syncope, Syncope Respiratory: Reports: Cough, Shortness of Breath. Denies: Sputum Production, Hemoptysis Gastrointestinal: Denies: Hematemesis, Hematochezia, Melena Genitourinary: Reports: Dysuria Skin: Denies: Rash Objective: Vital Signs Temp Pulse Resp BP Pulse Ox 100.2 F H 76 18 103/81 H 98 11/05/18 12:00 11/05/18 12:00 11/05/18 12:00 11/05/18 12:00 11/05/18 12:00 Oxygen Flow Rate (L/min) 2 Oxygen Delivery Method Nasal Cannula Weight: 211 lb 3.245 oz Body Mass Index (BMI) 40.7 Intake and Output for Last 24 Hours 11/03/18 11/04/18 11/05/18 23:59 23:59 23:59 Intake Total 588 / 588 1182 / 1182 Output Total 100 / 100 225 / 225 Balance 488 / 488 957 / 957 11/04/18 17:15: WBC 9.9, RBC 4.06 L, Hgb 11.6 L, Hct 37.0, MCV 91.1, MCH 28.6, MCHC 31.4 L, RDW 15.1 H, RDW Differential 50.0 H, Plt Count 264, MPV 9.9, Immature Gran % (Auto) 0.500, Neut % (Auto) 87.4 H, Lymph % (Auto) 5.1 L, [place] % (Auto) 6.4, Eos % (Auto) 0.1, Baso % (Auto) 0.5, Absolute Neuts (auto) 8.7 H, Total Counted Not Reportable 11/04/18 17:15: PT 15.0 H, INR 1.2, APTT 34.3 11/04/18 17:15: Sodium 135 L, Potassium 3.9, Chloride 98, Carbon Dioxide 28.0, Anion Gap 9, BUN 19 H, Creatinine 1.26 H, Est GFR (MDRD) Af Amer 53 L, Est GFR (MDRD) Non-Af 44 L, BUN/Creatinine Ratio 15.1, Glucose 154 H, Calcium 7.9 L, Total Bilirubin 0.50 11/04/18 17:15: Lactic Acid 2.1 H 11/04/18 17:15: B-Natriuretic Peptide 549.0 H 11/04/18 17:37: pH 7.38, Bicarbonate Actual 24.2, POC Total CO2 25, Base Excess -1, O2 Saturation 97, ABG pCO2 40.7, ABG pO2 97, Tomás Test NA 11/04/18 18:48: pH 7.43, Bicarbonate Actual 24.5, POC Total CO2 26, Base Excess 0, O2 Saturation 97, ABG pCO2 37.4, ABG pO2 88, Tomás Test NA 11/04/18 20:45: Troponin I 5.540 H* 11/04/18 21:25: Lactic Acid 1.2 11/04/18 23:20: Troponin I 5.270 H* 11/05/18 02:03: Troponin I 4.070 H* 11/05/18 04:15: WBC 7.7, RBC 3.45 L, Hgb 9.8 L, Hct 31.2 L, MCV 90.4, MCH 28.4, MCHC 31.4 L, RDW 15.2 H, RDW Differential 49.4 H, Plt Count 212, MPV 9.8, Immature Gran % (Auto) 0.700, Neut % (Auto) 92.1 H, Lymph % (Auto) 4.2 L, [place] % (Auto) 2.6, Eos % (Auto) 0.1, Baso % (Auto) 0.3, Absolute Neuts (auto) 7.1, Total Counted Not Reportable 11/05/18 04:15: Sodium 136, Potassium 3.7, Chloride 98, Carbon Dioxide 28.0, Anion Gap 10, BUN 26 H, Creatinine 1.41 H, Est GFR (MDRD) Af Amer 46 L, Est GFR (MDRD) Non-Af 38 L, BUN/Creatinine Ratio 18.4, Glucose 153 H, Calcium 7.4 L 11/05/18 04:15: Triglycerides 125, Cholesterol 93, LDL Cholesterol 39, VLDL Cholesterol 25, HDL Cholesterol 29 L Rhythm: Sinus rhythm EKG: Sinus rhythm ECHO: Pending CXR: As noted above: Please see official report Assessment/Plan 1. Acute non-ST segment elevation NC The patient appears to have findings compatible with acute non-ST segment elevation NC. The etiology is uncertain although there are concerns, based on her cardiovascular risk factors, of underlying CAD. This may be a type II supply demand mismatch event. At the same time contribution from her underlying sepsis syndrome cannot necessarily be excluded. At the present time she is in the ICU and being monitored. She will continue with cardiac enzyme follow-up and ECG follow-up as deemed appropriate. An echocardiogram is pending. She will continue medical therapy. This will include antiplatelet therapy, anticoagulant therapy, nitrates as needed, beta blockers as tolerated, afterload reducing agents as deemed appropriate, and lipid-lowering agents as deemed appropriate. Ideally once she has improved from her respiratory standpoint then she should be considered for further evaluation with diagnostic cardiac catheterization to determine whether or not she truly does have underlying CAD that is thought to be angiographically/hemodynamically significant requiring revascularization therapy. In the interim she will continue medical management. Also an attempt will be made to obtain her previous peripheral vascular records for additional evaluation care/continuity of care. 2. Peripheral arterial occlusive disease She does have a history of significant peripheral arterial occlusive disease. She has been followed by the [facility] peripheral vascular surgery group. An attempt will be made to retrieve medical records for continuity of care purposes. 3. Hyperlipidemia She will continue risk factor evaluation care as deemed appropriate. 5. Hypertension Her blood pressures will be followed. Her medications can be adjusted as needed. 6. Sepsis thought secondary to acute respiratory related issues secondary to acute pneumonia She will continue under evaluation care per internal medicine and pulmonology/critical care medicine. Comment: The patient's case has been discussed and reviewed with patient, her family members present, and Dr. Birmingham of the [facility] ICU staff. This note was generated with Mediasmartation software. It may contain incorrect words, spelling, and punctuation that were not noted in checking the note before signing.
--- NOTE | 2018-11-05 14:40 | CASEMGMT ---
RN CM Note: Discussed possible need for Home oxygen on dc. Choices of DME providers given, pt prefers [facility]. Packet and Green sheet to front of chart if dc'd over weekend. Stalin HORANN RN ACM
[2018-11-05 16:40] LABS: Bedside Glucose 192 mg/dL (70-110)
[2018-11-05] MEDS: BENZOCAINE/MENTHOL 1 LOZENGE MUCOUS MEM ×2 (17:10→19:13)
--- NOTE | 2018-11-05 21:15 | NURSING ---
Report given to Dodie prado at this time who is taking over pts primary care.
[2018-11-06] VITALS (16 sets, daily range): BP systolic 122–187; BP diastolic 58–83; PULSE 72–98; RESP 15–18; TEMP 36.6–36.9; O2SAT 92–97
[2018-11-06] MEDS: Insulin Lispro 100 UNIT/ML INSULN.PEN SQ ×5 (00:04→22:25)
[2018-11-06] MEDS: Carvedilol 25 MG Tablet PO ×3 (00:04→22:25)
[2018-11-06] MEDS: Heparin Injection (Vial) 5,000 UNIT/ML VIAL 5000 UNIT SC ×4 (00:04→22:25)
[2018-11-06] MEDS: Ceftriaxone 1 GM/50 ML BAG IV ×2 (00:05→22:27)
[2018-11-06] MEDS: Labetalol 200 MG Tablet 300 MG PO ×3 (00:06→22:27)
[2018-11-06] MEDS: BENZOCAINE/MENTHOL 1 LOZENGE MUCOUS MEM ×3 (00:07→20:03)
[2018-11-06] MEDS: 0.9% NaCl Peripheral Flush Adult/Peds IV ×2 (00:08→06:06)
[2018-11-06 00:36] LABS: Bedside Glucose 185 mg/dL (70-110)
[2018-11-06 06:19] LABS: Absolute Lymphocyte Count 0.27 X10^3/ul (0.83-4.51); Absolute Neutrophil Count 5.5 X10^3/uL (2.0-7.7); Basophil# 0.01 X10^3/uL; Basophil% 0.2 % (0-1); Hematocrit 29.3 % (37-47); Hemoglobin 9.4 g/dl (12.0-15.0); Lymphocyte # 0.27 X10^3/ul (4.0); Lymphocyte % 4.4 % (19-41); Mean Corp Hgb Conc 32.1 g/gl (32-36); Mean Corpuscular Hgb 28.7 pg (27.0-32.0); Mean Corpuscular Volume 89.6 fL (81-99); Mean Platelet Vol. 9.8 fl (6.2-12.0); Monocyte# 0.42 X10^3/uL; Monocyte% 6.8 % (0-10); Neutrophil # 5.45 X10^3/uL (2.7-7.7); Neutrophil % 88.1 % (47-70); Platelet Count 194 K/mm3 (150-450); RBC Distribution Width SD 48.2 fl (35.1-43.9); Red Blood Count 3.27 M/mm3 (4.2-5.4); White Blood Count 6.2 K/mm3 (4.4-11.0)
[2018-11-06 06:20] LABS: Differential Indicated SCAN CRITERIA MET; POSITIVE COUNT NO; POSITIVE DIFFERENTIAL YES; POSITIVE MORPHOLOGY NO
[2018-11-06] MEDS: Ipratropium/Albuterol Sulfate 3 ML AMPUL.NEB INHALATION ×4 (06:21→22:47)
[2018-11-06 06:30] LABS: Anion Gap 10 (5-15); BUN 35 mg/dL (7-18); BUN/Creat Ratio 25.4 RATIO (10-20); Calcium,Total 7.3 mg/dL (8.5-10.1); Chloride 100 mmol/L (98-107); Creatinine, Serum 1.38 mg/dL (0.55-1.02); EST Glomerular Filtration Rate 39 mL/min (>60); Est Glom Filt Rate - Afr Amer 48 mL/min (>60); Estimated Creatinine Clearance 24.52 ml/min; Glucose 173 mg/dL (74-106); Potassium 3.5 mmol/L (3.5-5.1); Sodium Level 136 mmol/L (136-145)
[2018-11-06 06:48] LABS: Differential Comment SCANNED
[2018-11-06 07:05] LABS: Bedside Glucose 169 mg/dL (70-110)
--- NOTE | 2018-11-06 07:44 | PN_ITS ---
Patient Problems: Active and Suspected Problems Severe sepsis (Acute) Acute respiratory failure with hypoxia (Acute) Right lower lobe pneumonia (Acute) Sinus tachycardia by electrocardiogram (Acute) NSTEMI (non-ST elevated myocardial infarction) (Acute) Pneumonia (Acute) Subjective: The patient was seen and examined at the bedside this morning. Events from the last 24 hours have been reviewed. The patient is currently afebrile, hemodynamically stable and maintaining appropriate oxygen saturations on 2 L/min via nasal cannula. The patient is currently sitting in her bedside recliner and talking on the phone. Breathing quality is improving. Objective: The patient's most recent lab work, culture data and imaging studies have all been personally reviewed. Strep and urine Legionella antigens were negative. Blood and urine cultures are pending. Surface echocardiogram revealed evidence of segmental dysfunction of the LV with an ejection fraction of 60%. Right ventricular systolic pressure was estimated to be 55 mmHg. Moderate aortic valve calcification was noted. - Physical Exam General: Alert, Cooperative, No apparent distress, - - Sitting in bedside recliner. Morbidly obese. HEENT: Atraumatic, PERRLA, Normocephalic Oral: No Gingival or Mucosal Lesions/ Ulcerations Neck: Supple, No Nodes, Trachea Midline Lungs: No rhonchi, No wheeze, No rales, Diminished Cardiovascular: Regular rate, Regular Rhythm, Normal S1, Normal S2, Murmur Abdomen: Bowel Sounds Present, Soft, Non Tender, Obese Extremities: No clubbing, No cyanosis, Edema Skin: No breakdown Musculoskeletal: No Tenderness to Palpation of Joints or Extremities, No Muscle Wasting Lymphatic: No Cervical, Supraclavicular, or Inguinal Adenopathy Neurological: Cranial nerves II-XII grossly intact, Neuro grossly intact Psych/Mental Status: Alert and oriented to time, place, person, mood and affect Vital Signs Temp Pulse Resp BP Pulse Ox 98 F 78 18 176/78 H 97 11/06/18 05:45 11/06/18 06:55 11/06/18 06:25 11/06/18 05:45 11/06/18 06:25 Oxygen Flow Rate (L/min) 2 Oxygen Delivery Method Nasal Cannula Weight: 213 lb 6.519 oz Body Mass Index (BMI) 40.7 Intake and Output for Last 24 Hours 11/04/18 11/05/18 11/06/18 23:59 23:59 23:59 Intake Total 588 / 588 1422 / 1422 301 / 301 Output Total 100 / 100 500 / 500 650 / 650 Balance 488 / 488 922 / 922 -349 / -349 Microbiology Past 72 Hours 11/05/18 22:29 C. difficile DNA Amplification - Final Stool 11/04/18 21:25 Legionella Antigen - Final Urine Catheter - [facility] 11/04/18 21:25 Streptococcus pneumoniae Antigen (M - Final Urine Catheter - [facility] Laboratory Tests Past 24 Hrs 11/05/18 11/06/18 11/06/18 04:15 06:06 06:06 WBC 6.2 RBC 3.27 L Hgb 9.4 L Hct 29.3 L MCV 89.6 MCH 28.7 MCHC 32.1 RDW 15.0 H RDW Differential 48.2 H Plt Count 194 MPV 9.8 Immature Gran % (Auto) 0.500 Neut % (Auto) 88.1 H Lymph % (Auto) 4.4 L [place] % (Auto) 6.8 Eos % (Auto) 0.0 Baso % (Auto) 0.2 Absolute Neuts (auto) 5.5 Absolute Lymphs (auto) 0.27 L Total Counted Not Reportable Differential Comment SCANNED Sodium 136 Potassium 3.5 Chloride 100 Carbon Dioxide 26.0 Anion Gap 10 BUN 35 H Creatinine 1.38 H Estim Creat Clear Calc 24.52 Est GFR (MDRD) Af Amer 48 L Est GFR (MDRD) Non-Af 39 L BUN/Creatinine Ratio 25.4 H Glucose 173 H Calcium 7.3 L Triglycerides 125 Cholesterol 93 LDL Cholesterol 39 VLDL Cholesterol 25 HDL Cholesterol 29 L POC Glucose 11/06/18 11/06/18 11/05/18 06:55 00:01 16:25 POC Glucose 169 H 185 H 192 H 11/05/18 12:24 POC Glucose 233 H Clinical Impression(s) from Imaging Studies Chest X-Ray 11/04/18 17:29 IMPRESSION: Right basilar and left perihilar infiltrates. Electronically Signed: Parviz Garcia DO at 17:42 EDT Tel [phone], Service support , Medical Necessity - Tobacco Use Smoking Status: Former smoker Tobacco Use: Cigarettes Assessment/Plan All Active Problems Severe sepsis (Acute) Acute respiratory failure with hypoxia (Acute) Right lower lobe pneumonia (Acute) Sinus tachycardia by electrocardiogram (Acute) NSTEMI (non-ST elevated myocardial infarction) (Acute) Pneumonia (Acute) Dehydration (Acute) Acute kidney insufficiency (Acute) RECOMMENDATIONS: 1. Continue antibiotics, bronchodilators and steroids as ordered. 2. Wean supplemental oxygen as tolerated. 3. Encourage incentive spirometer use and mobilize patient as tolerated. 4. Perform walking oximetry study prior to consideration for discharge from the hospital. 5. Outpatient pulmonary follow-up within 2 weeks of discharge. IMPRESSIONS: 1. Acute hypoxic respiratory failure secondary to CAP and probable COPD Patient does have a significant right lower lobe infiltrate on chest x-ray and presented with hypoxic respiratory failure. Patient responded well to BiPAP therapy initially. Patient does have an extensive cardiac history, but overall appears to be relatively fluid appropriate. Patient is on appropriate antibiotics. Patient does have an extensive smoking history, so clinical suspicion for COPD. Reasonable to treat with bronchodilators and steroids given severity of illness. Patient can have pulmonary function tests as an outpatient for quantification and clarification of lung function, upon discharge from the hospital. 2. Severe sepsis secondary to community-acquired pneumonia Patient is on appropriate antibiotics at this time. Patient has been immunosuppressed with leflunomide and prednisone and this likely is the etiology of lack of leukocytosis. Blood pressure has been doing well. 3. Non-ST elevation ND/hypertensive urgency Patient did have significant troponin leak on presentation. Echocardiogram revealed preserved ejection fraction. Cardiology is following to assist with medical management. 4. RA/carotid stenosis/renal artery stenosis/CKD stage III/morbid obesity/advanced age Complicates care, management, recovery and prognosis. Patient is immunosuppressed at baseline, but these have been held. Continue to monitor renal function. This note was generated with Zonder dictation software. It may contain incorrect words, spelling, and punctuation that were not noted in checking the note before signing. Code Visit Inpatient E&M: 65828 Subs Hosp L2
[2018-11-06] MEDS: Aspirin 81 MG TAB.CHEW PO (08:12)
--- NOTE | 2018-11-06 09:54 | CASEMGMT ---
SW spoke with patient to see if she felt she will be ok to go home at d/c. She said she will be going home. Kelli BROWNLEE MSW
[2018-11-06] MEDS: amLODIPine 2.5 MG Tablet PO ×2 (10:19→14:26)
[2018-11-06] MEDS: Chlorthalidone 50 MG Tablet 12.5 MG PO (10:20)
[2018-11-06] MEDS: Clopidogrel Bisulfate 75 MG Tablet PO (10:21)
--- NOTE | 2018-11-06 10:44 | PCM.PN.HOSP ---
Patient Problems: Active and Suspected Problems Severe sepsis (Acute) Acute respiratory failure with hypoxia (Acute) Right lower lobe pneumonia (Acute) Sinus tachycardia by electrocardiogram (Acute) NSTEMI (non-ST elevated myocardial infarction) (Acute) Pneumonia (Acute) Subjective: Feeling much better today. Denies any chest pain, and her shortness of breath is improving. Vitals/I&O's: Vital Signs Temp Pulse Resp BP Pulse Ox 97.9 F 98 17 187/82 H 96 11/06/18 10:16 11/06/18 10:16 11/06/18 10:16 11/06/18 10:16 11/06/18 10:16 Oxygen Flow Rate (L/min) 1 Oxygen Delivery Method Nasal Cannula Weight: 213 lb 6.519 oz Body Mass Index (BMI) 40.7 Intake and Output for Last 24 Hours 11/04/18 11/05/18 11/06/18 23:59 23:59 23:59 Intake Total 588 / 588 1422 / 1422 301 / 301 Output Total 100 / 100 500 / 500 650 / 650 Balance 488 / 488 922 / 922 -349 / -349 General: Alert, Oriented x3, Cooperative, No apparent distress HEENT: Atraumatic, PERRLA, EOMI, Normocephalic Oral: Moist Mucosa Neck: Supple, No JVD Lungs: Normal air movement, diminished at the bases with slight expiratory wheezing, no rales or rhonchi Cardiovascular: Regular rate, Regular Rhythm, Normal S1, Normal S2, No murmurs Abdomen: Soft, Non Tender, Non-Distended, No Hepato-splenomegaly Extremities: Trace lower extremity edema, Capillary Refill Less than 3 Seconds Skin: No rashes, No breakdown Neurological: Neuro grossly intact, Sensory exam intact to light touch and pain Psych/Mental Status: Normal Affect, Appropriate Microbiology Past 72 Hours 11/05/18 22:29 Stool C. difficile DNA Amplification - Final 11/04/18 21:25 Urine Catheter - [facility]elez Legionella Antigen - Final 11/04/18 21:25 Urine Catheter - Velez Streptococcus pneumoniae Antigen (M - Final Laboratory Results 11/05/18 12:24: POC Glucose 233 H 11/05/18 16:25: POC Glucose 192 H 11/06/18 00:01: POC Glucose 185 H 11/06/18 06:06: WBC 6.2, RBC 3.27 L, Hgb 9.4 L, Hct 29.3 L, MCV 89.6, MCH 28.7, MCHC 32.1, RDW 15.0 H, RDW Differential 48.2 H, Plt Count 194, MPV 9.8, Immature Gran % (Auto) 0.500, Neut % (Auto) 88.1 H, Lymph % (Auto) 4.4 L, [place] % (Auto) 6.8, Eos % (Auto) 0.0, Baso % (Auto) 0.2, Absolute Neuts (auto) 5.5, Absolute Lymphs (auto) 0.27 L, Total Counted Not Reportable, Differential Comment SCANNED 11/06/18 06:06: Sodium 136, Potassium 3.5, Chloride 100, Carbon Dioxide 26.0, Anion Gap 10, BUN 35 H, Creatinine 1.38 H, Estim Creat Clear Calc 24.52, Est GFR (MDRD) Af Amer 48 L, Est GFR (MDRD) Non-Af 39 L, BUN/Creatinine Ratio 25.4 H, Glucose 173 H, Calcium 7.3 L 11/06/18 06:55: POC Glucose 169 H Current Medications Acetaminophen (Tylenol) 650 mg PO Q6H PRN PRN PRN Reason: FEVER Last Admin: 11/04/18 21:09 Dose: 650 mg Albuterol Sulfate (Ventolin Aerosols) 2.5 mg INHALATION Q2H PRN PRN PRN Reason: SHORTNESS OF BREATH Albuterol/Ipratropium (Duoneb) 3 ml INHALATION Q4HWA.RT [facility] Last Admin: 11/06/18 06:21 Dose: 3 ml Amlodipine Besylate (Norvasc) 2.5 mg PO DAILY [facility] Last Admin: 11/06/18 10:19 Dose: 2.5 mg Aspirin (Aspirin, Baby) 81 mg PO DAILY@0800 [facility] Last Admin: 11/06/18 08:12 Dose: 81 mg Carvedilol (Coreg) 25 mg PO BID [facility] Last Admin: 11/06/18 10:20 Dose: 25 mg Chlorthalidone (Hygroton) 12.5 mg PO DAILY [facility] Last Admin: 11/06/18 10:20 Dose: 12.5 mg Cholecalciferol (Vitamin D) 2,000 unit PO DAILY [facility] Last Admin: 11/06/18 10:21 Dose: 2,000 unit Clopidogrel Bisulfate (Plavix) 75 mg PO DAILY [facility] Last Admin: 11/06/18 10:21 Dose: 75 mg Dextrose (D50w Syringe) 0 gm IV X1 PRN; Protocol PRN Reason: Hypoglycemia Glucagon () 1 mg IM .X1 PRN PRN Reason: Hypoglycemia Heparin Sodium (Porcine) (Heparin Na) 5,000 unit SC Q8 [facility] Last Admin: 11/06/18 06:05 Dose: 5,000 unit Sodium Chloride () 250 mls @ 15 mls/hr IV .[id number] PRN PRN Reason: SALINE FLUSH Azithromycin 500 mg/ Dextrose 255 mls @ 250 mls/hr IV Q24 [facility] Stop: 11/06/18 11:02 Last Admin: 11/05/18 10:27 Dose: 250 mls/hr Ceftriaxone Sodium (Rocephin) 1 gm in 50 mls @ 100 mls/hr IV Q24@2200 [facility] Last Admin: 11/06/18 00:05 Dose: 100 mls/hr Insulin Human Lispro (Humalog Kwikpen (Bkc)) 0 unit SQ ACHS [facility]; Protocol Last Admin: 11/06/18 06:55 Dose: 1 u Labetalol HCl (Trandate) 300 mg PO BID [facility] Last Admin: 11/06/18 10:20 Dose: 300 mg Methylprednisolone (Solu-Medrol) 40 mg IV Q8 [facility] Last Admin: 11/06/18 06:05 Dose: 40 mg Phenol/Menthol (Chloraseptic (Bkc)) 5 spray MM Q2H PRN PRN PRN Reason: SORE THROAT Sodium Chloride () 5 - 15 ml IV UD PRN PRN Reason: SALINE FLUSH Last Admin: 11/06/18 06:06 Dose: 10 ml Throat Lozenges (Cepacol Sore Throat Lozenge) 1 lozenge MUCOUS MEM Q2H PRN PRN PRN Reason: SORE THROAT Last Admin: 11/06/18 00:07 Dose: 1 lozenge Medical Necessity - Tobacco Use Smoking Status: Former smoker Tobacco Use: Cigarettes Assessment/Plan All Active Problems Severe sepsis (Acute) Acute respiratory failure with hypoxia (Acute) Right lower lobe pneumonia (Acute) Sinus tachycardia by electrocardiogram (Acute) NSTEMI (non-ST elevated myocardial infarction) (Acute) Pneumonia (Acute) Dehydration (Acute) Acute kidney insufficiency (Acute) 1. Sepsis and acute hypoxic respiratory failure secondary to bilateral CAP secondary to gram-positive organisms -Currently down to 1 L nasal cannula will attempt to wean by the end of the day today -Because of her RA she is on leflunomide and prednisone -Continue with IV Rocephin and azithromycin -She states that she is to be a smoker but has no formal diagnosis of COPD, will continue with aerosols and IV prednisone 2. HTN/CKD stage III/history of carotid stenosis status post endarterectomies/renal artery stenosis status post stent/elevated troponin -Blood pressure stable continue her home medications -We will continue with her home Plavix -Her troponin is trending down and this is likely secondary to the fact that her oxygen status was 68% on room air on admission. -Appreciate cardiology input -Creatinine is at baseline 3. RA -She is on leflunomide and prednisone at home -These are both on hold currently but can be restarted when she goes home DVT: Heparin Code Visit Inpatient E&M: 45768 Subs Hosp L2
--- NOTE | 2018-11-06 10:47 | PN_ITS ---
Patient Problems: Active and Suspected Problems Severe sepsis (Acute) Acute respiratory failure with hypoxia (Acute) Right lower lobe pneumonia (Acute) Sinus tachycardia by electrocardiogram (Acute) NSTEMI (non-ST elevated myocardial infarction) (Acute) Pneumonia (Acute) Subjective: Feeling much better today. Denies any chest pain, and her shortness of breath is improving. Vitals/I&O's: Vital Signs Temp Pulse Resp BP Pulse Ox 97.9 F 98 17 187/82 H 96 11/06/18 10:16 11/06/18 10:16 11/06/18 10:16 11/06/18 10:16 11/06/18 10:16 Oxygen Flow Rate (L/min) 1 Oxygen Delivery Method Nasal Cannula Weight: 213 lb 6.519 oz Body Mass Index (BMI) 40.7 Intake and Output for Last 24 Hours 11/04/18 11/05/18 11/06/18 23:59 23:59 23:59 Intake Total 588 / 588 1422 / 1422 301 / 301 Output Total 100 / 100 500 / 500 650 / 650 Balance 488 / 488 922 / 922 -349 / -349 General: Alert, Oriented x3, Cooperative, No apparent distress HEENT: Atraumatic, PERRLA, EOMI, Normocephalic Oral: Moist Mucosa Neck: Supple, No JVD Lungs: Normal air movement, diminished at the bases with slight expiratory wheezing, no rales or rhonchi Cardiovascular: Regular rate, Regular Rhythm, Normal S1, Normal S2, No murmurs Abdomen: Soft, Non Tender, Non-Distended, No Hepato-splenomegaly Extremities: Trace lower extremity edema, Capillary Refill Less than 3 Seconds Skin: No rashes, No breakdown Neurological: Neuro grossly intact, Sensory exam intact to light touch and pain Psych/Mental Status: Normal Affect, Appropriate Microbiology Past 72 Hours 11/05/18 22:29 Stool C. difficile DNA Amplification - Final 11/04/18 21:25 Urine Catheter - Velez Legionella Antigen - Final 11/04/18 21:25 Urine Catheter - Velez Streptococcus pneumoniae Antigen (M - Final Laboratory Results 11/05/18 12:24: POC Glucose 233 H 11/05/18 16:25: POC Glucose 192 H 11/06/18 00:01: POC Glucose 185 H 11/06/18 06:06: WBC 6.2, RBC 3.27 L, Hgb 9.4 L, Hct 29.3 L, MCV 89.6, MCH 28.7, MCHC 32.1, RDW 15.0 H, RDW Differential 48.2 H, Plt Count 194, MPV 9.8, Immature Gran % (Auto) 0.500, Neut % (Auto) 88.1 H, Lymph % (Auto) 4.4 L, [place] % (Auto) 6.8, Eos % (Auto) 0.0, Baso % (Auto) 0.2, Absolute Neuts (auto) 5.5, Absolute Lymphs (auto) 0.27 L, Total Counted Not Reportable, Differential Comment SCANNED 11/06/18 06:06: Sodium 136, Potassium 3.5, Chloride 100, Carbon Dioxide 26.0, Anion Gap 10, BUN 35 H, Creatinine 1.38 H, Estim Creat Clear Calc 24.52, Est GFR (MDRD) Af Amer 48 L, Est GFR (MDRD) Non-Af 39 L, BUN/Creatinine Ratio 25.4 H, Glucose 173 H, Calcium 7.3 L 11/06/18 06:55: POC Glucose 169 H Current Medications Acetaminophen (Tylenol) 650 mg PO Q6H PRN PRN PRN Reason: FEVER Last Admin: 11/04/18 21:09 Dose: 650 mg Albuterol Sulfate (Ventolin Aerosols) 2.5 mg INHALATION Q2H PRN PRN PRN Reason: SHORTNESS OF BREATH Albuterol/Ipratropium (Duoneb) 3 ml INHALATION Q4HWA.RT [facility] Last Admin: 11/06/18 06:21 Dose: 3 ml Amlodipine Besylate (Norvasc) 2.5 mg PO DAILY [facility] Last Admin: 11/06/18 10:19 Dose: 2.5 mg Aspirin (Aspirin, Baby) 81 mg PO DAILY@0800 [facility] Last Admin: 11/06/18 08:12 Dose: 81 mg Carvedilol (Coreg) 25 mg PO BID [facility] Last Admin: 11/06/18 10:20 Dose: 25 mg Chlorthalidone (Hygroton) 12.5 mg PO DAILY [facility] Last Admin: 11/06/18 10:20 Dose: 12.5 mg Cholecalciferol (Vitamin D) 2,000 unit PO DAILY [facility] Last Admin: 11/06/18 10:21 Dose: 2,000 unit Clopidogrel Bisulfate (Plavix) 75 mg PO DAILY [facility] Last Admin: 11/06/18 10:21 Dose: 75 mg Dextrose (D50w Syringe) 0 gm IV X1 PRN; Protocol PRN Reason: Hypoglycemia Glucagon () 1 mg IM .X1 PRN PRN Reason: Hypoglycemia Heparin Sodium (Porcine) (Heparin Na) 5,000 unit SC Q8 [facility] Last Admin: 11/06/18 06:05 Dose: 5,000 unit Sodium Chloride () 250 mls @ 15 mls/hr IV .[id number] PRN PRN Reason: SALINE FLUSH Azithromycin 500 mg/ Dextrose 255 mls @ 250 mls/hr IV Q24 [facility] Stop: 11/06/18 11:02 Last Admin: 11/05/18 10:27 Dose: 250 mls/hr Ceftriaxone Sodium (Rocephin) 1 gm in 50 mls @ 100 mls/hr IV Q24@2200 [facility] Last Admin: 11/06/18 00:05 Dose: 100 mls/hr Insulin Human Lispro (Humalog Kwikpen (Bkc)) 0 unit SQ ACHS [facility]; Protocol Last Admin: 11/06/18 06:55 Dose: 1 u Labetalol HCl (Trandate) 300 mg PO BID [facility] Last Admin: 11/06/18 10:20 Dose: 300 mg Methylprednisolone (Solu-Medrol) 40 mg IV Q8 [facility] Last Admin: 11/06/18 06:05 Dose: 40 mg Phenol/Menthol (Chloraseptic (Bkc)) 5 spray MM Q2H PRN PRN PRN Reason: SORE THROAT Sodium Chloride () 5 - 15 ml IV UD PRN PRN Reason: SALINE FLUSH Last Admin: 11/06/18 06:06 Dose: 10 ml Throat Lozenges (Cepacol Sore Throat Lozenge) 1 lozenge MUCOUS MEM Q2H PRN PRN PRN Reason: SORE THROAT Last Admin: 11/06/18 00:07 Dose: 1 lozenge Medical Necessity - Tobacco Use Smoking Status: Former smoker Tobacco Use: Cigarettes Assessment/Plan All Active Problems Severe sepsis (Acute) Acute respiratory failure with hypoxia (Acute) Right lower lobe pneumonia (Acute) Sinus tachycardia by electrocardiogram (Acute) NSTEMI (non-ST elevated myocardial infarction) (Acute) Pneumonia (Acute) Dehydration (Acute) Acute kidney insufficiency (Acute) 1. Sepsis and acute hypoxic respiratory failure secondary to bilateral CAP secondary to gram-positive organisms -Currently down to 1 L nasal cannula will attempt to wean by the end of the day today -Because of her RA she is on leflunomide and prednisone -Continue with IV Rocephin and azithromycin -She states that she is to be a smoker but has no formal diagnosis of COPD, will continue with aerosols and IV prednisone 2. HTN/CKD stage III/history of carotid stenosis status post endarterectomies/renal artery stenosis status post stent/elevated troponin -Blood pressure stable continue her home medications -We will continue with her home Plavix -Her troponin is trending down and this is likely secondary to the fact that her oxygen status was 68% on room air on admission. -Appreciate cardiology input -Creatinine is at baseline 3. RA -She is on leflunomide and prednisone at home -These are both on hold currently but can be restarted when she goes home DVT: Heparin Code Visit Inpatient E&M: 67048 Subs Hosp L2
[2018-11-06 11:35] LABS: Bedside Glucose 232 mg/dL (70-110)
--- NOTE | 2018-11-06 13:05 | PCM.PN.CARD ---
Subjectve: The patient states she is feeling better today with respect to her breathing. She denies any ongoing symptoms of chest discomfort. Objective: Vital Signs Temp Pulse Resp BP Pulse Ox 97.9 F 77 17 187/82 H 93 11/06/18 10:16 11/06/18 11:32 11/06/18 10:16 11/06/18 10:16 11/06/18 11:13 Oxygen Flow Rate (L/min) 1 Oxygen Delivery Method Room Air Weight: 213 lb 6.519 oz Body Mass Index (BMI) 40.7 Intake and Output for Last 24 Hours 11/04/18 11/05/18 11/06/18 23:59 23:59 23:59 Intake Total 588 / 588 1422 / 1422 801 / 801 Output Total 100 / 100 500 / 500 950 / 950 Balance 488 / 488 922 / 922 -149 / -149 General: Awake, Alert, Oriented x 3, Cooperative, No Acute Distress HEENT: Atraumatic, Normocephalic, PERRL, EOMI, Sclera Non Icteric Oral: Moist Mucosa Neck: Supple, Good ROM, No JVD Lungs: Diminished Abad Bases - Minimal Cardiovascular: Regular Rhythm, Normal S1, Normal S2 Abdomen: Bowel Sounds Present, Soft, Non Tender Extremities: No edema Neurological: No Focal Motor or Sensory Deficit Psych/Mental Status: Appropriate 11/06/18 06:06: WBC 6.2, RBC 3.27 L, Hgb 9.4 L, Hct 29.3 L, MCV 89.6, MCH 28.7, MCHC 32.1, RDW 15.0 H, RDW Differential 48.2 H, Plt Count 194, MPV 9.8, Immature Gran % (Auto) 0.500, Neut % (Auto) 88.1 H, Lymph % (Auto) 4.4 L, [place] % (Auto) 6.8, Eos % (Auto) 0.0, Baso % (Auto) 0.2, Absolute Neuts (auto) 5.5, Total Counted Not Reportable 11/06/18 06:06: Sodium 136, Potassium 3.5, Chloride 100, Carbon Dioxide 26.0, Anion Gap 10, BUN 35 H, Creatinine 1.38 H, Est GFR (MDRD) Af Amer 48 L, Est GFR (MDRD) Non-Af 39 L, BUN/Creatinine Ratio 25.4 H, Glucose 173 H, Calcium 7.3 L Rhythm: Sinus rhythm Medical Necessity - Tobacco Use Smoking Status: Former smoker Tobacco Use: Cigarettes Assessment/Plan 1. Acute non-ST segment elevation AL The patient appears to have findings compatible with acute non-ST segment elevation AL. The etiology is uncertain although there are concerns, based on her cardiovascular risk factors, of underlying CAD. This may be a type II supply demand mismatch event. At the same time contribution from her underlying sepsis syndrome cannot necessarily be excluded. She is continuing to be monitored. She is continuing medical management. As her pulmonary process improves she will be considered for upcoming evaluation with diagnostic cardiac catheterization. 2. Peripheral arterial occlusive disease She does have a history of significant peripheral arterial occlusive disease. She has been followed by the [facility] peripheral vascular surgery group. An attempt will be made to retrieve medical records for continuity of care purposes. 3. Hyperlipidemia She will continue risk factor evaluation care as deemed appropriate. 5. Hypertension Her blood pressures will be followed. Her medications can be adjusted as needed. 6. Sepsis thought secondary to acute respiratory related issues secondary to acute pneumonia She will continue under evaluation care per internal medicine and pulmonology/critical care medicine. Comment: The patient's case has been discussed and reviewed with patient. This note was generated with [employer] dictation software. It may contain incorrect words, spelling, and punctuation that were not noted in checking the note before signing.
[2018-11-06] MEDS: Atorvastatin Calcium 20 MG Tablet PO (22:27)
[2018-11-07] VITALS (14 sets, daily range): BP systolic 140–159; BP diastolic 63–74; PULSE 63–77; RESP 16–18; TEMP 36.4–36.6; O2SAT 95–97
[2018-11-07 00:21] LABS: Bedside Glucose 161 mg/dL (70-110)
[2018-11-07] MEDS: BENZOCAINE/MENTHOL 1 LOZENGE MUCOUS MEM ×2 (00:27→12:38)
[2018-11-07 00:30] LABS: Bedside Glucose 224 mg/dL (70-110)
--- NOTE | 2018-11-07 06:30 | RAD_ITS ---
STUDY: X-RAY CHEST REASON FOR EXAM: Female, 78 years old. Shortness of breath TECHNIQUE: PA and lateral views of the chest. COMPARISON: November 04, 2018 FINDINGS: EKG leads project over the chest. Localized areas of airspace consolidation in the bilateral lungs have largely cleared since the prior study. Coarsened interstitial lung markings. No sizable pleural effusion. Normal size heart. Normal mediastinum and surekha. Normal visualized pulmonary arteries. There is atherosclerotic calcification of the aortic arch with tortuosity. There are diffuse degenerative changes of the visualized thoracic spine. Normal visualized ribs, clavicles, and shoulders. There is no demonstrated abnormality of the visualized soft tissue structures of the upper abdomen. RAD/Chest PA and Lateral IMPRESSION: 1. Favorable change. Near-complete clearing of bilateral pulmonary infiltrates. Electronically Signed: Devaughn Cortes MD at 7:35 EDT , Service support ,
[2018-11-07] MEDS: Ipratropium/Albuterol Sulfate 3 ML AMPUL.NEB INHALATION ×4 (06:43→18:55)
[2018-11-07 06:53] LABS: Anion Gap 10 (5-15); BUN 33 mg/dL (7-18); BUN/Creat Ratio 25.6 RATIO (10-20); Calcium,Total 7.2 mg/dL (8.5-10.1); Chloride 100 mmol/L (98-107); Creatinine, Serum 1.29 mg/dL (0.55-1.02); EST Glomerular Filtration Rate 43 mL/min (>60); Est Glom Filt Rate - Afr Amer 51 mL/min (>60); Estimated Creatinine Clearance 25.82 ml/min; Glucose 182 mg/dL (74-106); Potassium 3.2 mmol/L (3.5-5.1); Sodium Level 136 mmol/L (136-145)
[2018-11-07] MEDS: 0.9% NaCl Peripheral Flush Adult/Peds IV ×2 (06:57→21:08)
[2018-11-07] MEDS: Heparin Injection (Vial) 5,000 UNIT/ML VIAL 5000 UNIT SC ×3 (06:57→21:08)
[2018-11-07] MEDS: Insulin Lispro 100 UNIT/ML INSULN.PEN SQ ×4 (06:58→21:09)
[2018-11-07 07:10] LABS: Bedside Glucose 169 mg/dL (70-110)
[2018-11-07 07:22] LABS: Hematocrit 28.4 % (37-47); Hemoglobin 9.1 g/dl (12.0-15.0); Mean Corpuscular Volume 89.9 fL (81-99); Red Blood Count 3.16 M/mm3 (4.2-5.4); White Blood Count 6.9 K/mm3 (4.4-11.0)
[2018-11-07 07:23] LABS: Absolute Neutrophil Count 5.9 X10^3/uL (2.0-7.7); Basophil# 0.01 X10^3/uL; Basophil% 0.1 % (0-1); Differential Indicated SCAN CRITERIA MET; Lymphocyte % 5.8 % (19-41); Mean Corpuscular Hgb 28.8 pg (27.0-32.0); Mean Platelet Vol. 9.8 fl (6.2-12.0); Monocyte# 0.47 X10^3/uL; Monocyte% 6.9 % (0-10); Neutrophil # 5.91 X10^3/uL (2.7-7.7); Neutrophil % 86.3 % (47-70); POSITIVE COUNT NO; POSITIVE DIFFERENTIAL YES; POSITIVE MORPHOLOGY NO; Platelet Count 197 K/mm3 (150-450); RBC Distribution Width CV 15.2 % (11.6-14.6); RBC Distribution Width SD 48.5 fl (35.1-43.9)
--- NOTE | 2018-11-07 07:36 | PCM.PN.PUL ---
Patient Problems: Active and Suspected Problems Severe sepsis (Acute) Acute respiratory failure with hypoxia (Acute) Right lower lobe pneumonia (Acute) Sinus tachycardia by electrocardiogram (Acute) NSTEMI (non-ST elevated myocardial infarction) (Acute) Pneumonia (Acute) Subjective: The patient was seen and examined at the bedside this morning. Events from the last 24 hours have been reviewed. The patient is currently afebrile, hemodynamically stable and maintaining appropriate oxygen saturations on room air. There are tentative plans for cardiac catheterization tomorrow. Objective: The patient's most recent lab work, culture data and imaging studies have all been personally reviewed. Strep and urine Legionella antigens were negative. Blood and urine cultures are pending. Surface echocardiogram revealed evidence of segmental dysfunction of the LV with an ejection fraction of 60%. Right ventricular systolic pressure was estimated to be 55 mmHg. Moderate aortic valve calcification was noted. - Physical Exam General: Alert, Cooperative, No apparent distress HEENT: Atraumatic, PERRLA, Normocephalic Oral: No Gingival or Mucosal Lesions/ Ulcerations Neck: Supple, No Nodes, Trachea Midline Lungs: No rhonchi, No wheeze, No rales Cardiovascular: Regular rate, Regular Rhythm, Normal S1, Normal S2 Abdomen: Bowel Sounds Present, Soft, Non Tender, Obese Extremities: No clubbing, No cyanosis, No edema Skin: No breakdown Musculoskeletal: No Tenderness to Palpation of Joints or Extremities, No Muscle Wasting Lymphatic: No Cervical, Supraclavicular, or Inguinal Adenopathy Neurological: Cranial nerves II-XII grossly intact, Neuro grossly intact Psych/Mental Status: Normal Affect, Appropriate Vital Signs Temp Pulse Resp BP Pulse Ox 97.6 F L 73 16 148/65 H 95 11/07/18 04:10 11/07/18 06:44 11/07/18 04:10 11/07/18 04:10 11/07/18 04:10 Oxygen Flow Rate (L/min) 1 Oxygen Delivery Method Room Air Weight: 213 lb 6.519 oz Body Mass Index (BMI) 40.7 Intake and Output for Last 24 Hours 11/05/18 11/06/18 11/07/18 23:59 23:59 23:59 Intake Total 1422 / 1422 1281 / 1281 360 / 360 Output Total 500 / 500 950 / 950 Balance 922 / 922 331 / 331 360 / 360 Microbiology Past 72 Hours 11/04/18 17:28 Blood Culture - Preliminary Blood Culture (Wb) - Right Hand No growth in 48 hours. 11/04/18 17:15 Blood Culture - Preliminary Blood Culture (Wb) - Anticubital Left No growth in 48 hours. 11/05/18 22:29 C. difficile DNA Amplification - Final Stool 11/04/18 21:25 Legionella Antigen - Final Urine Catheter - Velez 11/04/18 21:25 Streptococcus pneumoniae Antigen (M - Final Urine Catheter - Velez Laboratory Tests Past 24 Hrs 11/07/18 11/07/18 06:10 06:10 WBC 6.9 RBC 3.16 L Hgb 9.1 L Hct 28.4 L MCV 89.9 MCH 28.8 MCHC 32.0 RDW 15.2 H RDW Differential 48.5 H Plt Count 197 MPV 9.8 Immature Gran % (Auto) 0.900 Neut % (Auto) 86.3 H Lymph % (Auto) 5.8 L [place] % (Auto) 6.9 Eos % (Auto) 0.0 Baso % (Auto) 0.1 Absolute Neuts (auto) 5.9 Absolute Lymphs (auto) 0.40 L Total Counted Not Reportable Sodium 136 Potassium 3.2 L Chloride 100 Carbon Dioxide 26.0 Anion Gap 10 BUN 33 H Creatinine 1.29 H Estim Creat Clear Calc 25.82 Est GFR (MDRD) Af Amer 51 L Est GFR (MDRD) Non-Af 43 L BUN/Creatinine Ratio 25.6 H Glucose 182 H Calcium 7.2 L POC Glucose 11/07/18 11/06/18 11/06/18 06:53 22:24 17:19 POC Glucose 169 H 224 H 161 H 11/06/18 11:24 POC Glucose 232 H Clinical Impression(s) from Imaging Studies Chest X-Ray 11/04/18 17:29 IMPRESSION: Right basilar and left perihilar infiltrates. Electronically Signed: Parviz Garcia DO at 17:42 EDT Tel [phone], Service support , Chest X-Ray 11/07/18 06:30 IMPRESSION: 1. Favorable change. Near-complete clearing of bilateral pulmonary infiltrates. Electronically Signed: Devaughn Cortes MD at 7:35 EDT , Service support , Medical Necessity - Tobacco Use Smoking Status: Former smoker Tobacco Use: Cigarettes Assessment/Plan All Active Problems Severe sepsis (Acute) Acute respiratory failure with hypoxia (Acute) Right lower lobe pneumonia (Acute) Sinus tachycardia by electrocardiogram (Acute) NSTEMI (non-ST elevated myocardial infarction) (Acute) Pneumonia (Acute) Dehydration (Acute) Acute kidney insufficiency (Acute) RECOMMENDATIONS: 1. Continue antibiotics, bronchodilators and steroids as ordered. Complete a total course of 7 days of antibiotics. 2. Encourage incentive spirometer use and mobilize patient as tolerated. 3. Perform walking oximetry study prior to consideration for discharge from the hospital. 4. Outpatient pulmonary follow-up within 2 weeks of discharge. IMPRESSIONS: 1. Acute hypoxic respiratory failure secondary to CAP and probable COPD Patient does have a significant right lower lobe infiltrate on chest x-ray and presented with hypoxic respiratory failure. Patient responded well to BiPAP therapy initially. Patient does have an extensive cardiac history, but overall appears to be relatively fluid appropriate. Patient is on appropriate antibiotics. Patient does have an extensive smoking history, so clinical suspicion for COPD. Reasonable to treat with bronchodilators and steroids given severity of illness. Patient can have pulmonary function tests as an outpatient for quantification and clarification of lung function, upon discharge from the hospital. 2. Severe sepsis secondary to community-acquired pneumonia Patient is on appropriate antibiotics at this time. Patient has been immunosuppressed with leflunomide and prednisone and this likely is the etiology of lack of leukocytosis. Blood pressure has been doing well. 3. Non-ST elevation SD/hypertensive urgency Patient did have significant troponin leak on presentation. Echocardiogram revealed preserved ejection fraction. Cardiology is following to assist with medical management. 4. RA/carotid stenosis/renal artery stenosis/CKD stage III/morbid obesity/advanced age Complicates care, management, recovery and prognosis. Patient is immunosuppressed at baseline, but these have been held. Continue to monitor renal function. This note was generated with [employer] software. It may contain incorrect words, spelling, and punctuation that were not noted in checking the note before signing. Code Visit Inpatient E&M: 57149 Subs Hosp L2
[2018-11-07] MEDS: predniSONE 20 MG Tablet 40 MG PO (08:01)
[2018-11-07] MEDS: Aspirin 81 MG TAB.CHEW PO (08:01)
[2018-11-07] MEDS: Loperamide 2 MG Capsule PO ×3 (08:36→22:17)
--- NOTE | 2018-11-07 09:24 | PCM.PN.HOSP ---
Patient Problems: Active and Suspected Problems Severe sepsis (Acute) Acute respiratory failure with hypoxia (Acute) Right lower lobe pneumonia (Acute) Sinus tachycardia by electrocardiogram (Acute) NSTEMI (non-ST elevated myocardial infarction) (Acute) Pneumonia (Acute) Subjective: Doing well and breathing better today. She is not short of breath and is off oxygen. Denies any chest pain. Continue to have diarrhea however C. difficile negative. Vitals/I&O's: Vital Signs Temp Pulse Resp BP Pulse Ox 97.6 F L 73 18 148/65 H 97 11/07/18 04:10 11/07/18 06:44 11/07/18 06:43 11/07/18 04:10 11/07/18 06:43 Oxygen Flow Rate (L/min) 1 Oxygen Delivery Method Room Air Weight: 213 lb 2.992 oz Body Mass Index (BMI) 40.7 Intake and Output for Last 24 Hours 11/05/18 11/06/18 11/07/18 23:59 23:59 23:59 Intake Total 1422 / 1422 1281 / 1281 360 / 360 Output Total 500 / 500 950 / 950 Balance 922 / 922 331 / 331 360 / 360 General: Alert, Oriented x3, Cooperative, No apparent distress HEENT: Atraumatic, PERRLA, EOMI, Normocephalic Oral: Moist Mucosa Neck: Supple, No JVD Lungs: Normal air movement, diminished at the bases with slight expiratory wheezing, no rales or rhonchi Cardiovascular: Regular rate, Regular Rhythm, Normal S1, Normal S2, No murmurs Abdomen: Soft, Non Tender, Non-Distended, No Hepato-splenomegaly Extremities: Trace lower extremity edema, Capillary Refill Less than 3 Seconds Skin: No rashes, No breakdown Neurological: Neuro grossly intact, Sensory exam intact to light touch and pain Psych/Mental Status: Normal Affect, Appropriate Microbiology Past 72 Hours 11/04/18 18:54 Urine, Clean Catch Urine Culture - Final Culture exhibits no growth. 11/04/18 17:28 Blood Culture (Wb) - Right Hand Blood Culture - Preliminary No growth in 48 hours. 11/04/18 17:15 Blood Culture (Wb) - Anticubital Left Blood Culture - Preliminary No growth in 48 hours. 11/05/18 22:29 Stool C. difficile DNA Amplification - Final 11/04/18 21:25 Urine Catheter - Velez Legionella Antigen - Final 11/04/18 21:25 Urine Catheter - Velez Streptococcus pneumoniae Antigen (M - Final Laboratory Results 11/06/18 11:24: POC Glucose 232 H 11/06/18 17:19: POC Glucose 161 H 11/06/18 22:24: POC Glucose 224 H 11/07/18 06:10: WBC 6.9, RBC 3.16 L, Hgb 9.1 L, Hct 28.4 L, MCV 89.9, MCH 28.8, MCHC 32.0, RDW 15.2 H, RDW Differential 48.5 H, Plt Count 197, MPV 9.8, Immature Gran % (Auto) 0.900, Neut % (Auto) 86.3 H, Lymph % (Auto) 5.8 L, [place] % (Auto) 6.9, Eos % (Auto) 0.0, Baso % (Auto) 0.1, Absolute Neuts (auto) 5.9, Absolute Lymphs (auto) 0.40 L, Total Counted Not Reportable 11/07/18 06:10: Sodium 136, Potassium 3.2 L, Chloride 100, Carbon Dioxide 26.0, Anion Gap 10, BUN 33 H, Creatinine 1.29 H, Estim Creat Clear Calc 25.82, Est GFR (MDRD) Af Amer 51 L, Est GFR (MDRD) Non-Af 43 L, BUN/Creatinine Ratio 25.6 H, Glucose 182 H, Calcium 7.2 L 11/07/18 06:53: POC Glucose 169 H Current Medications Acetaminophen (Tylenol) 650 mg PO Q6H PRN PRN PRN Reason: FEVER Last Admin: 11/04/18 21:09 Dose: 650 mg Albuterol Sulfate (Ventolin Aerosols) 2.5 mg INHALATION Q2H PRN PRN PRN Reason: SHORTNESS OF BREATH Albuterol/Ipratropium (Duoneb) 3 ml INHALATION Q4HWA.RT [facility] Last Admin: 11/07/18 06:43 Dose: 3 ml Amlodipine Besylate (Norvasc) 5 mg PO DAILY [facility] Aspirin (Aspirin, Baby) 81 mg PO DAILY@0800 [facility] Last Admin: 11/07/18 08:01 Dose: 81 mg Atorvastatin Calcium (Lipitor) 20 mg PO QHS [facility] Last Admin: 11/06/18 22:27 Dose: 20 mg Carvedilol (Coreg) 25 mg PO BID [facility] Last Admin: 11/06/18 22:25 Dose: 25 mg Chlorthalidone (Hygroton) 12.5 mg PO DAILY [facility] Last Admin: 11/06/18 10:20 Dose: 12.5 mg Cholecalciferol (Vitamin D) 2,000 unit PO DAILY [facility] Last Admin: 11/06/18 10:21 Dose: 2,000 unit Clopidogrel Bisulfate (Plavix) 75 mg PO DAILY [facility] Last Admin: 11/06/18 10:21 Dose: 75 mg Dextrose (D50w Syringe) 0 gm IV X1 PRN; Protocol PRN Reason: Hypoglycemia Glucagon () 1 mg IM .X1 PRN PRN Reason: Hypoglycemia Heparin Sodium (Porcine) (Heparin Na) 5,000 unit SC Q8 [facility] Last Admin: 11/07/18 06:57 Dose: 5,000 unit Sodium Chloride () 250 mls @ 15 mls/hr IV .[id number] PRN PRN Reason: SALINE FLUSH Ceftriaxone Sodium (Rocephin) 1 gm in 50 mls @ 100 mls/hr IV Q24@2200 [facility] Last Admin: 11/06/18 22:27 Dose: 100 mls/hr Insulin Human Lispro (Humalog Kwikpen (Bkc)) 0 unit SQ ACHS [facility]; Protocol Last Admin: 11/07/18 06:58 Dose: 1 u Labetalol HCl (Trandate) 300 mg PO BID [facility] Last Admin: 11/06/18 22:27 Dose: 300 mg Phenol/Menthol (Chloraseptic (Bkc)) 5 spray MM Q2H PRN PRN PRN Reason: SORE THROAT Prednisone () 40 mg PO DAILY@0800 [facility] Last Admin: 11/07/18 08:01 Dose: 40 mg Sodium Chloride () 5 - 15 ml IV UD PRN PRN Reason: SALINE FLUSH Last Admin: 11/07/18 06:57 Dose: 10 ml Throat Lozenges (Cepacol Sore Throat Lozenge) 1 lozenge MUCOUS MEM Q2H PRN PRN PRN Reason: SORE THROAT Last Admin: 11/07/18 00:27 Dose: 1 lozenge Medical Necessity - Tobacco Use Smoking Status: Former smoker Tobacco Use: Cigarettes Assessment/Plan All Active Problems Severe sepsis (Acute) Acute respiratory failure with hypoxia (Acute) Right lower lobe pneumonia (Acute) Sinus tachycardia by electrocardiogram (Acute) NSTEMI (non-ST elevated myocardial infarction) (Acute) Pneumonia (Acute) Dehydration (Acute) Acute kidney insufficiency (Acute) 1. Sepsis and acute hypoxic respiratory failure secondary to bilateral CAP secondary to gram-positive organisms -Currently down to 1 L nasal cannula will attempt to wean by the end of the day today -Because of her RA she is on leflunomide and prednisone -Completed her course of azithromycin and she has 2 more doses of her Rocephin -She states that she is to be a smoker but has no formal diagnosis of COPD, will continue with aerosols and transition IV prednisone to oral prednisone daily 2. HTN/CKD stage III/history of carotid stenosis status post endarterectomies/renal artery stenosis status post stent/elevated troponin -Blood pressure stable continue her home medications -We will continue with her home Plavix and aspirin, and will plan for cardiac cath on Thursday -Her troponin is trending down and this is likely secondary to the fact that her oxygen status was 68% on room air on admission. -Appreciate cardiology input -Creatinine is at baseline 3. RA -She is on leflunomide and prednisone at home -These are both on hold currently but can be restarted when she goes home DVT: Heparin Code Visit Inpatient E&M: 45225 Subs Hosp L2
[2018-11-07] MEDS: Clopidogrel Bisulfate 75 MG Tablet PO (10:02)
[2018-11-07] MEDS: Chlorthalidone 50 MG Tablet 12.5 MG PO (10:02)
[2018-11-07] MEDS: amLODIPine 5 MG Tablet PO (10:03)
[2018-11-07] MEDS: Labetalol 200 MG Tablet 300 MG PO ×2 (10:03→21:09)
[2018-11-07] MEDS: Carvedilol 25 MG Tablet PO ×2 (10:05→21:09)
--- NOTE | 2018-11-07 11:14 | PN.CARD_ITS ---
Subjectve: The patient is awake and alert. She denies ongoing chest discomfort. She continues to have an element of audible wheezing. She states that she has been having intermittent loose bowel movements/diarrhea. Objective: Vital Signs Temp Pulse Resp BP Pulse Ox 97.8 F 72 17 159/74 H 96 11/07/18 09:56 11/07/18 09:56 11/07/18 09:56 11/07/18 09:56 11/07/18 09:56 Oxygen Flow Rate (L/min) 1 Oxygen Delivery Method Room Air Weight: 213 lb 2.992 oz Body Mass Index (BMI) 40.7 Intake and Output for Last 24 Hours 11/05/18 11/06/18 11/07/18 23:59 23:59 23:59 Intake Total 1422 / 1422 1281 / 1281 360 / 360 Output Total 500 / 500 950 / 950 Balance 922 / 922 331 / 331 360 / 360 General: Awake, Alert, Oriented x 3, Cooperative, No Acute Distress HEENT: Atraumatic, Normocephalic, PERRL, EOMI, Sclera Non Icteric Oral: Moist Mucosa Neck: Supple, Good ROM, No JVD Lungs: Expiratory Wheezes-Abad Cardiovascular: Regular Rhythm, Normal S1, Normal S2 Abdomen: Bowel Sounds Present, Soft, Non Tender Extremities: Trace RLE Edema, Trace LLE Edema Neurological: No Focal Motor or Sensory Deficit Psych/Mental Status: Appropriate 11/07/18 06:10: WBC 6.9, RBC 3.16 L, Hgb 9.1 L, Hct 28.4 L, MCV 89.9, MCH 28.8, MCHC 32.0, RDW 15.2 H, RDW Differential 48.5 H, Plt Count 197, MPV 9.8, Immature Gran % (Auto) 0.900, Neut % (Auto) 86.3 H, Lymph % (Auto) 5.8 L, [place] % (Auto) 6.9, Eos % (Auto) 0.0, Baso % (Auto) 0.1, Absolute Neuts (auto) 5.9, Total Counted Not Reportable 11/07/18 06:10: Sodium 136, Potassium 3.2 L, Chloride 100, Carbon Dioxide 26.0, Anion Gap 10, BUN 33 H, Creatinine 1.29 H, Est GFR (MDRD) Af Amer 51 L, Est GFR (MDRD) Non-Af 43 L, BUN/Creatinine Ratio 25.6 H, Glucose 182 H, Calcium 7.2 L Rhythm: Sinus rhythm Medical Necessity - Tobacco Use Smoking Status: Former smoker Tobacco Use: Cigarettes Assessment/Plan 1. Acute non-ST segment elevation [place] The patient appears to have findings compatible with acute non-ST segment elevation [place]. The etiology is uncertain although there are concerns, based on her cardiovascular risk factors, of underlying CAD. This may be a type II supply demand mismatch event. At the same time contribution from her underlying sepsis syndrome cannot necessarily be excluded. She is continuing to be monitored. She is continuing medical management. She will be tentatively scheduled for diagnostic cardiac catheterization tomorrow. 2. Peripheral arterial occlusive disease She does have a history of significant peripheral arterial occlusive disease. She has been followed by the [facility] peripheral vascular surgery group. An attempt will be made to retrieve medical records for continuity of care purposes. 3. Hyperlipidemia She will continue risk factor evaluation care as deemed appropriate. 5. Hypertension Her blood pressures will be followed. Her medications can be adjusted as needed. 6. Sepsis thought secondary to acute respiratory related issues secondary to acute pneumonia She will continue under evaluation care per internal medicine and pulmonology/critical care medicine. Comment: The patient's case has been discussed and reviewed with patient and the [facility] staff. This note was generated with [employer] dictation software. It may contain incorrect words, spelling, and punctuation that were not noted in checking the note before signing.
[2018-11-07 11:45] LABS: Bedside Glucose 274 mg/dL (70-110)
--- NOTE | 2018-11-07 12:49 | CM.UR ---
Heart cath review: has traditional medicare so if transfer is necessary she can go to any [facility] facility. Tiburcio Montgomery RN, [facility].
--- NOTE | 2018-11-07 14:28 | NURSING ---
1400 this RN assuming care of pt at this time
[2018-11-07 15:55] LABS: Bedside Glucose 198 mg/dL (70-110)
[2018-11-07 20:53] LABS: Color, Urine Yellow (Yellow); Glucose, Dipstick Normal (Normal); Ketone-Dipstick Negative (Negative); Leukocyte Esterase-Dipstick Negative /ul (Negative); Nitrite-Dipstick Negative (Negative); Occult Blood-Urine 10 /ul (Negative); Protein-Dipstick 15 mg/dl (Negative); Urine Bilirubin Dipstick Negative (Negative); Urine Clarity Clear (Clear); Urine Urobilinogen Normal (Normal); Urine pH 6.5 (5.0 - 8.0)
[2018-11-07] MEDS: Ceftriaxone 1 GM/50 ML BAG IV (21:09)
[2018-11-07] MEDS: Atorvastatin Calcium 20 MG Tablet PO (21:09)
[2018-11-07 21:26] LABS: Bedside Glucose 221 mg/dL (70-110)
[2018-11-07] MEDS: Calcium Carbonate 500 MG Tablet PO (22:17)
[2018-11-08] VITALS (17 sets, daily range): BP systolic 112–187; BP diastolic 51–86; PULSE 61–79; RESP 16–20; TEMP 36.3–36.7; O2SAT 94–97
--- NOTE | 2018-11-08 01:47 | NURSING ---
This RN received handoff and took over care of patient.
[2018-11-08] MEDS: Loperamide 2 MG Capsule PO (04:16)
--- NOTE | 2018-11-08 05:55 | EKG12_ITS ---
Test Reason : AM EKG Blood Pressure : / mmHG Vent. Rate : 071 BPM Atrial Rate : 071 BPM P-R Int : 144 ms QRS Dur : 090 ms QT Int : 454 ms P-R-T Axes : 000 043 087 degrees QTc Int : 493 ms Normal sinus rhythm Prolonged QT Abnormal ECG Confirmed by ANA FLOR, MAKENNA ([id number]), scientific publications editor TRICE LOPEZ ([id number] on 11/12/2018 7:02:54 AM Referred By: Gabrielle Lam Confirmed By:MAKENNA PEREZ MD
[2018-11-08 06:09] LABS: Prothrombin Time (Protime)PT. 13.3 SECONDS (11.7-14.9)
[2018-11-08] MEDS: amLODIPine 5 MG Tablet PO (06:09)
[2018-11-08] MEDS: Carvedilol 25 MG Tablet PO ×2 (06:09→22:10)
[2018-11-08] MEDS: Aspirin 81 MG TAB.CHEW PO (06:09)
[2018-11-08 06:10] LABS: Partial Thromboplast Time 29.1 Seconds (24.1-36.2)
[2018-11-08] MEDS: Clopidogrel Bisulfate 75 MG Tablet PO (06:10)
[2018-11-08] MEDS: Labetalol 200 MG Tablet 300 MG PO ×2 (06:10→22:10)
[2018-11-08] MEDS: 0.9% NaCl Peripheral Flush Adult/Peds IV (06:11)
[2018-11-08 06:41] LABS: Bedside Glucose 149 mg/dL (70-110)
[2018-11-08] MEDS: Ipratropium/Albuterol Sulfate 3 ML AMPUL.NEB INHALATION ×5 (06:58→22:58)
--- NOTE | 2018-11-08 06:58 | NURSING ---
This RN gave optical laboratory manager report.
[2018-11-08 07:17] LABS: Absolute Neutrophil Count 7.9 X10^3/uL (2.0-7.7); Basophil# 0.01 X10^3/uL; Basophil% 0.1 % (0-1); Hematocrit 29.9 % (37-47); Hemoglobin 9.6 g/dl (12.0-15.0); Lymphocyte % 10.5 % (19-41); Mean Corp Hgb Conc 32.1 g/gl (32-36); Mean Corpuscular Hgb 28.7 pg (27.0-32.0); Mean Corpuscular Volume 89.5 fL (81-99); Mean Platelet Vol. 9.6 fl (6.2-12.0); Monocyte# 0.47 X10^3/uL; Monocyte% 4.9 % (0-10); Neutrophil # 7.91 X10^3/uL (2.7-7.7); Neutrophil % 83.3 % (47-70); Platelet Count 223 K/mm3 (150-450); RBC Distribution Width CV 15.6 % (11.6-14.6); RBC Distribution Width SD 50.4 fl (35.1-43.9); Red Blood Count 3.34 M/mm3 (4.2-5.4); White Blood Count 9.5 K/mm3 (4.4-11.0)
[2018-11-08 07:18] LABS: Differential Indicated SCAN CRITERIA MET; POSITIVE COUNT NO; POSITIVE DIFFERENTIAL NO; POSITIVE MORPHOLOGY YES
[2018-11-08 07:22] LABS: Anion Gap 8 (5-15); BUN 29 mg/dL (7-18); BUN/Creat Ratio 22.7 RATIO (10-20); Calcium,Total 7.7 mg/dL (8.5-10.1); Chloride 103 mmol/L (98-107); Creatinine, Serum 1.28 mg/dL (0.55-1.02); EST Glomerular Filtration Rate 43 mL/min (>60); Est Glom Filt Rate - Afr Amer 52 mL/min (>60); Estimated Creatinine Clearance 26.02 ml/min; Glucose 147 mg/dL (74-106); Potassium 3.7 mmol/L (3.5-5.1); Sodium Level 137 mmol/L (136-145)
--- NOTE | 2018-11-08 08:33 | PCM.PN.CARD ---
Subjectve: The patient is now s/p diagnostic cardiac cath via the right brachial artery without obvious post cath adverse events. She continues with concerns of shortness of breath and audible expiratory wheezing. Objective: Vital Signs Temp Pulse Resp BP Pulse Ox 97.4 F L 62 16 145/72 H 95 11/08/18 06:04 11/08/18 06:58 11/08/18 06:58 11/08/18 06:04 11/08/18 06:58 Oxygen Flow Rate (L/min) 1 Oxygen Delivery Method Room Air Weight: 211 lb 13.828 oz Body Mass Index (BMI) 40.7 Intake and Output for Last 24 Hours 11/06/18 11/07/18 11/08/18 23:59 23:59 23:59 Intake Total 1281 / 1281 1480 / 1480 400 / 400 Output Total 950 / 950 Balance 331 / 331 1480 / 1480 400 / 400 General: Awake, Alert, Oriented x 3, Cooperative, No Acute Distress, Obese HEENT: Atraumatic, Normocephalic, PERRL, EOMI, Sclera Non Icteric Oral: Moist Mucosa Neck: Supple, Good ROM, No JVD Lungs: Expiratory Wheezes-Abad Cardiovascular: Regular Rhythm, Normal S1, Normal S2 Vascular: Normal Radial Pulses, - - Normal right brachial pulse Abdomen: Bowel Sounds Present, Soft, Non Tender Extremities: Trace RLE Edema, Trace LLE Edema Neurological: No Focal Motor or Sensory Deficit Psych/Mental Status: Appropriate 11/07/18 20:28: Urine Color Yellow, Urine Clarity Clear, Urine pH 6.5, Ur Specific [place] 1.010, Urine Protein 15 H, Urine Glucose (UA) Normal, Urine Ketones Negative, Urine Occult Blood 10 H, Urine Nitrite Negative, Urine Bilirubin Negative, Urine Urobilinogen Normal, Ur Leukocyte Esterase Negative 11/08/18 05:35: Sodium 137, Potassium 3.7, Chloride 103, Carbon Dioxide 26.0, Anion Gap 8, BUN 29 H, Creatinine 1.28 H, Est GFR (MDRD) Af Amer 52 L, Est GFR (MDRD) Non-Af 43 L, BUN/Creatinine Ratio 22.7 H, Glucose 147 H, Calcium 7.7 L 11/08/18 05:35: WBC 9.5, RBC 3.34 L, Hgb 9.6 L, Hct 29.9 L, MCV 89.5, MCH 28.7, MCHC 32.1, RDW 15.6 H, RDW Differential 50.4 H, Plt Count 223, MPV 9.6, Immature Gran % (Auto) 1.200 H, Neut % (Auto) 83.3 H, Lymph % (Auto) 10.5 L, [place] % (Auto) 4.9, Eos % (Auto) 0.0, Baso % (Auto) 0.1, Absolute Neuts (auto) 7.9 H, Total Counted Not Reportable 11/08/18 05:35: PT 13.3, INR 1.0, APTT 29.1 Rhythm: sinus rhythm EKG: sinus rhythm Cardiac Cath: Preliminary: LV with normal LV systolic function; estimated LVEF of 65%; no angiographically significant CAD Medical Necessity - Tobacco Use Smoking Status: Former smoker Tobacco Use: Cigarettes Assessment/Plan 1. Acute non-ST segment elevation [place] The patient appears to have findings compatible with acute non-ST segment elevation [place]. This appears to be type II supply demand mismatch event possibly secondary to the patients presenting hypoxia. She is continuing to be monitored. She is continuing medical management. 2. Peripheral arterial occlusive disease She does have a history of significant peripheral arterial occlusive disease. She has been followed by the [facility] peripheral vascular surgery group. 3. Hyperlipidemia She will continue risk factor evaluation care as deemed appropriate. 5. Hypertension Her blood pressures will be followed. Her medications can be adjusted as needed. 6. Sepsis thought secondary to acute respiratory related issues secondary to acute pneumonia She will continue under evaluation care per internal medicine and pulmonology/critical care medicine. This note was generated with [employer] dictation software. It may contain incorrect words, spelling, and punctuation that were not noted in checking the note before signing.
--- NOTE | 2018-11-08 08:39 | PN.CARD_ITS ---
Subjectve: The patient is now s/p diagnostic cardiac cath via the right brachial artery without obvious post cath adverse events. She continues with concerns of shortness of breath and audible expiratory wheezing. Objective: Vital Signs Temp Pulse Resp BP Pulse Ox 97.4 F L 62 16 145/72 H 95 11/08/18 06:04 11/08/18 06:58 11/08/18 06:58 11/08/18 06:04 11/08/18 06:58 Oxygen Flow Rate (L/min) 1 Oxygen Delivery Method Room Air Weight: 211 lb 13.828 oz Body Mass Index (BMI) 40.7 Intake and Output for Last 24 Hours 11/06/18 11/07/18 11/08/18 23:59 23:59 23:59 Intake Total 1281 / 1281 1480 / 1480 400 / 400 Output Total 950 / 950 Balance 331 / 331 1480 / 1480 400 / 400 General: Awake, Alert, Oriented x 3, Cooperative, No Acute Distress, Obese HEENT: Atraumatic, Normocephalic, PERRL, EOMI, Sclera Non Icteric Oral: Moist Mucosa Neck: Supple, Good ROM, No JVD Lungs: Expiratory Wheezes-Abad Cardiovascular: Regular Rhythm, Normal S1, Normal S2 Vascular: Normal Radial Pulses, - - Normal right brachial pulse Abdomen: Bowel Sounds Present, Soft, Non Tender Extremities: Trace RLE Edema, Trace LLE Edema Neurological: No Focal Motor or Sensory Deficit Psych/Mental Status: Appropriate 11/07/18 20:28: Urine Color Yellow, Urine Clarity Clear, Urine pH 6.5, Ur Specific [place] 1.010, Urine Protein 15 H, Urine Glucose (UA) Normal, Urine Ketones Negative, Urine Occult Blood 10 H, Urine Nitrite Negative, Urine Bilirubin Negative, Urine Urobilinogen Normal, Ur Leukocyte Esterase Negative 11/08/18 05:35: Sodium 137, Potassium 3.7, Chloride 103, Carbon Dioxide 26.0, Anion Gap 8, BUN 29 H, Creatinine 1.28 H, Est GFR (MDRD) Af Amer 52 L, Est GFR (MDRD) Non-Af 43 L, BUN/Creatinine Ratio 22.7 H, Glucose 147 H, Calcium 7.7 L 11/08/18 05:35: WBC 9.5, RBC 3.34 L, Hgb 9.6 L, Hct 29.9 L, MCV 89.5, MCH 28.7, MCHC 32.1, RDW 15.6 H, RDW Differential 50.4 H, Plt Count 223, MPV 9.6, Immature Gran % (Auto) 1.200 H, Neut % (Auto) 83.3 H, Lymph % (Auto) 10.5 L, [place] % (Auto) 4.9, Eos % (Auto) 0.0, Baso % (Auto) 0.1, Absolute Neuts (auto) 7.9 H, Total Counted Not Reportable 11/08/18 05:35: PT 13.3, INR 1.0, APTT 29.1 Rhythm: sinus rhythm EKG: sinus rhythm Cardiac Cath: Preliminary: LV with normal LV systolic function; estimated LVEF of 65%; no angiographically significant CAD Medical Necessity - Tobacco Use Smoking Status: Former smoker Tobacco Use: Cigarettes Assessment/Plan 1. Acute non-ST segment elevation [place] The patient appears to have findings compatible with acute non-ST segment elevation [place]. This appears to be type II supply demand mismatch event possibly secondary to the patients presenting hypoxia. She is continuing to be monitored. She is continuing medical management. 2. Peripheral arterial occlusive disease She does have a history of significant peripheral arterial occlusive disease. She has been followed by the [facility] peripheral vascular surgery group. 3. Hyperlipidemia She will continue risk factor evaluation care as deemed appropriate. 5. Hypertension Her blood pressures will be followed. Her medications can be adjusted as needed. 6. Sepsis thought secondary to acute respiratory related issues secondary to acute pneumonia She will continue under evaluation care per internal medicine and pulmonology/critical care medicine. This note was generated with [employer] dictation software. It may contain incorrect words, spelling, and punctuation that were not noted in checking the note before signing.
--- NOTE | 2018-11-08 09:02 | CL.D_ITS ---
Patient Name: NIGEL GARCIA Study Date: 11/08/2018 Performing: Xu Cerda MD Ht: 60 inches 152 cm : 1940 Wt: 211.9 lbs 96 kg Age: 78 Gender: female BSA: 1.91 PROCEDURE(S) PERFORMED [id number] CLINICAL PROFILE AND INDICATIONS Indications: Suspected CAD Heart Failure: None Stress/Imaging Stress/Image Study Performed: No Angina Classification Anginal Classification w/in 2 Weeks: No symptoms CAD Presentations: Non-STEMI. Other: shortness of breath CONCLUSIONS Elevated Left Ventricular End Diastolic Pressure Normal LV size, wall motion,and systolic function LVEF: by LV gram 65 % [place] Multivessel CAD RECOMMENDATIONS Medical therapy DESCRIPTION OF PROCEDURE The patient arrived to the procedure lab. The risks and benefits of the procedure as well as a full d escription of our services here and current unavailability of surgical backup were fully explained to the patient and/or their significant other prior to the catheterization. The Timeout was completed, verifying the correct patient and procedure. The patient's procedural site was prepped and draped in the usual fashion. Local anesthetic was given subcutaneously to right radial region with Lidocaine 2% . Local anesthetic was given subcutaneously to right brachial region with Lidocaine 2%. Using a modif ied Seldinger technique, arterial access was obtained via the right brachial artery, a 6Fr sheath was inserted. Left Coronary Artery selective angiography was performed in multiple views using a 5 Fr. 4.0 [place] catheter. Right Coronary Artery selective angiography was then performed in multiple views using a 5 Fr. 4.0 [place] catheter. LV to AO pullback pressures were then recorded. Left Ventriculography was performed in VITAL projection using a 5 Fr. [place] catheter.The arterial sheath w as pulled and manual compression applied until hemostasis is achieved. CORONARY ANGIOGRAPHY DOMINANCE: Right Dominant LEFT HEART ASSESSMENT Left Ventricular Ejection Fraction: by LV Gram 65 % Normal LV wall motion Elevated Left Ventricular End Diastolic Pressure LVEDP: 26 mmHg LEFT MAIN: Mild calcification LEFT ANTERIOR DESCENDING ARTERY: MID LAD: Mild calcification, 10 - 25 % Stenosis CIRCUMFLEX ARTERY: MID CIRC: Mild luminal irregularities, 10 - 25 % Stenosis DISTAL CIRC: 10 - 25 % Stenosis RIGHT CORONARY ARTERY: Mild luminal irregularities PROX RCA: Mild calcification VALVE FINDINGS: LV pullback procedure: no hemodynamic findings suggestive of hemodynamically significant aortic valve stenosis AORTIC ROOT: Angiographically normal COMPLICATIONS No Complications PROCEDURE MEDICATIONS Versed 1 mg IV Versed 1 mg IV Fentanyl 50 mcg IV Oxygen: 2 L/min via nasal cannula Heparin diluted in 23cc Heparinized saline. Patient given 10cc IA of this solution. 11/08/2018 08:11:3 0 Verapamil 2.5mg, Ntg 100mcgs, 2000 units of Heparin diluted in 23cc Heparinized saline. Patient give n 10cc IA of this solution. 11/08/2018 08:11:30 SUMMARY OF HEMODYNAMIC DATA Time AIR REST ECG 07:24:36 AO 151/60 (94) SA 08:14:06 LV 173/17, 35 08:20:17 LV 174/15, 26 08:20:24 LV 168/9, 23 08:21:12 LVp 173/2, 22 08:21:31 AOp 176/67 (109) 08:21:36 Signed By Xu Cerda MD On 11/08/2018 09:00:19 Xu Cerda MD
[2018-11-08] MEDS: 0.9% Normal Saline 1,000 ML 75 ML IV (09:11)
[2018-11-08] MEDS: predniSONE 20 MG Tablet 40 MG PO (09:12)
[2018-11-08] MEDS: Chlorthalidone 50 MG Tablet 12.5 MG PO (09:13)
--- NOTE | 2018-11-08 10:41 | PCM.PN.PUL ---
Patient Problems: Active and Suspected Problems Severe sepsis (Acute) Acute respiratory failure with hypoxia (Acute) Right lower lobe pneumonia (Acute) Sinus tachycardia by electrocardiogram (Acute) NSTEMI (non-ST elevated myocardial infarction) (Acute) Pneumonia (Acute) Subjective: The patient was seen and examined at the bedside this morning. Events from the last 24 hours have been reviewed. The patient is currently afebrile, hemodynamically stable and maintaining appropriate oxygen saturations on room air. The patient is scheduled for cardiac catheterization today. Although improved clinically, the patient's shortness of breath persists. Objective: The patient's most recent lab work, culture data and imaging studies have all been personally reviewed. Strep and urine Legionella antigens were negative. Blood and urine cultures are pending. Surface echocardiogram revealed evidence of segmental dysfunction of the LV with an ejection fraction of 60%. Right ventricular systolic pressure was estimated to be 55 mmHg. Moderate aortic valve calcification was noted. - Physical Exam General: Alert, Cooperative, No apparent distress HEENT: Atraumatic, PERRLA, Normocephalic Oral: No Gingival or Mucosal Lesions/ Ulcerations Neck: Supple, No Nodes, Trachea Midline Lungs: No rhonchi, No rales, Wheezes Cardiovascular: Regular rate, Regular Rhythm, Normal S1, Normal S2, No murmurs Abdomen: Bowel Sounds Present, Soft, Non Tender, Obese Extremities: No clubbing, No cyanosis, No edema Skin: No breakdown Musculoskeletal: No Tenderness to Palpation of Joints or Extremities, No Muscle Wasting Lymphatic: No Cervical, Supraclavicular, or Inguinal Adenopathy Neurological: Neuro grossly intact Psych/Mental Status: Normal Affect, Appropriate Vital Signs Temp Pulse Resp BP Pulse Ox 97.4 F L 61 18 112/51 L 96 11/08/18 06:04 11/08/18 10:15 11/08/18 10:15 11/08/18 10:15 11/08/18 10:15 Oxygen Flow Rate (L/min) 1 Oxygen Delivery Method Room Air Weight: 211 lb 13.828 oz Body Mass Index (BMI) 40.7 Intake and Output for Last 24 Hours 11/06/18 11/07/18 11/08/18 23:59 23:59 23:59 Intake Total 1281 / 1281 1480 / 1480 400 / 400 Output Total 950 / 950 Balance 331 / 331 1480 / 1480 400 / 400 Microbiology Past 72 Hours 11/04/18 18:54 Urine Culture - Final Urine, Clean Catch Culture exhibits no growth. 11/04/18 17:28 Blood Culture - Preliminary Blood Culture (Wb) - Right Hand No growth in 48 hours. 11/04/18 17:15 Blood Culture - Preliminary Blood Culture (Wb) - Anticubital Left No growth in 48 hours. 11/05/18 22:29 C. difficile DNA Amplification - Final Stool Laboratory Tests Past 24 Hrs 11/07/18 11/08/18 11/08/18 20:28 05:35 05:35 WBC 9.5 RBC 3.34 L Hgb 9.6 L Hct 29.9 L MCV 89.5 MCH 28.7 MCHC 32.1 RDW 15.6 H RDW Differential 50.4 H Plt Count 223 MPV 9.6 Immature Gran % (Auto) 1.200 H Neut % (Auto) 83.3 H Lymph % (Auto) 10.5 L [place] % (Auto) 4.9 Eos % (Auto) 0.0 Baso % (Auto) 0.1 Absolute Neuts (auto) 7.9 H Absolute Lymphs (auto) 1.00 Total Counted Not Reportable PT INR APTT Sodium 137 Potassium 3.7 Chloride 103 Carbon Dioxide 26.0 Anion Gap 8 BUN 29 H Creatinine 1.28 H Estim Creat Clear Calc 26.02 Est GFR (MDRD) Af Amer 52 L Est GFR (MDRD) Non-Af 43 L BUN/Creatinine Ratio 22.7 H Glucose 147 H Calcium 7.7 L Urine Color Yellow Urine Clarity Clear Urine pH 6.5 Ur Specific [place] 1.010 Urine Protein 15 H Urine Glucose (UA) Normal Urine Ketones Negative Urine Occult Blood 10 H Urine Nitrite Negative Urine Bilirubin Negative Urine Urobilinogen Normal Ur Leukocyte Esterase Negative 11/08/18 05:35 WBC RBC Hgb Hct MCV MCH MCHC RDW RDW Differential Plt Count MPV Immature Gran % (Auto) Neut % (Auto) Lymph % (Auto) [place] % (Auto) Eos % (Auto) Baso % (Auto) Absolute Neuts (auto) Absolute Lymphs (auto) Total Counted PT 13.3 INR 1.0 APTT 29.1 Sodium Potassium Chloride Carbon Dioxide Anion Gap BUN Creatinine Estim Creat Clear Calc Est GFR (MDRD) Af Amer Est GFR (MDRD) Non-Af BUN/Creatinine Ratio Glucose Calcium Urine Color Urine Clarity Urine pH Ur Specific [place] Urine Protein Urine Glucose (UA) Urine Ketones Urine Occult Blood Urine Nitrite Urine Bilirubin Urine Urobilinogen Ur Leukocyte Esterase POC Glucose 11/08/18 11/07/18 11/07/18 06:19 21:06 15:44 POC Glucose 149 H 221 H 198 H 11/07/18 11:34 POC Glucose 274 H Clinical Impression(s) from Imaging Studies Chest X-Ray 11/04/18 17:29 IMPRESSION: Right basilar and left perihilar infiltrates. Electronically Signed: Parviz Garcia DO at 17:42 EDT Tel [phone], Service support , Chest X-Ray 11/07/18 06:30 IMPRESSION: 1. Favorable change. Near-complete clearing of bilateral pulmonary infiltrates. Electronically Signed: Devaughn Cortes MD at 7:35 EDT , Service support , Medical Necessity - Tobacco Use Smoking Status: Former smoker Tobacco Use: Cigarettes Assessment/Plan All Active Problems Severe sepsis (Acute) Acute respiratory failure with hypoxia (Acute) Right lower lobe pneumonia (Acute) Sinus tachycardia by electrocardiogram (Acute) NSTEMI (non-ST elevated myocardial infarction) (Acute) Pneumonia (Acute) Dehydration (Acute) Acute kidney insufficiency (Acute) RECOMMENDATIONS: 1. Continue antibiotics, bronchodilators and steroids as ordered. Complete a total course of 7 days of antibiotics. 2. At discharge, recommend prednisone 40 mg daily be continued for 5 days. 3. Encourage incentive spirometer use and mobilize patient as tolerated. 4. Perform walking oximetry study prior to consideration for discharge from the hospital. 5. Outpatient pulmonary follow-up within 2 weeks of discharge. IMPRESSIONS: 1. Acute hypoxic respiratory failure secondary to CAP and probable COPD Patient does have a significant right lower lobe infiltrate on chest x-ray and presented with hypoxic respiratory failure. Patient responded well to BiPAP therapy initially. Patient does have an extensive cardiac history, but overall appears to be relatively fluid appropriate. The patient is on appropriate antibiotics. Patient does have an extensive smoking history, so clinical suspicion for COPD. Reasonable to treat with bronchodilators and steroids given severity of illness. Patient can have pulmonary function tests as an outpatient for quantification and clarification of lung function, upon discharge from the hospital. 2. Severe sepsis secondary to community-acquired pneumonia Patient is on appropriate antibiotics at this time. Patient has been immunosuppressed with leflunomide and prednisone and this likely is the etiology of lack of leukocytosis. Would plan to complete a total of 7 days of antibiotics at this time. 3. Non-ST elevation [place]/hypertensive urgency Patient did have significant troponin leak on presentation. Echocardiogram revealed preserved ejection fraction. Cardiology is following to assist with medical management. There are plans for cardiac catheterization today. 4. RA/carotid stenosis/renal artery stenosis/CKD stage III/morbid obesity/advanced age Complicates care, management, recovery and prognosis. Patient is immunosuppressed at baseline, but these have been held. Continue to monitor renal function. This note was generated with [employer] dictation software. It may contain incorrect words, spelling, and punctuation that were not noted in checking the note before signing. DISPOSITION: Given the patient's lack of further pulmonary needs, will sign off. Please have the patient follow-up in the pulmonary medicine clinic within 2 weeks of her discharge from the hospital. Please call with any additional questions. Code Visit Inpatient E&M: 30614 Subs Hosp L2
[2018-11-08] MEDS: Insulin Lispro 100 UNIT/ML INSULN.PEN SQ ×3 (11:45→22:14)
[2018-11-08 11:55] LABS: Bedside Glucose 169 mg/dL (70-110)
--- NOTE | 2018-11-08 13:30 | PN_ITS ---
<Pritesh Pavon - Last Filed: 11/08/18 13:22> Patient Problems: Active and Suspected Problems Severe sepsis (Acute) Acute respiratory failure with hypoxia (Acute) Right lower lobe pneumonia (Acute) Sinus tachycardia by electrocardiogram (Acute) NSTEMI (non-ST elevated myocardial infarction) (Acute) Pneumonia (Acute) Subjective: Pt resting comfortably in bed post cath. 10-25% stenosis multi vessels - no intervention, medical therapy only. No CP. Continues to have a cough productive of clear sputum. Remains SOB at rest and worse with exertion, however this has improved. She is maintaining adequate sats while lying in bed, however she is dipping into the 80s while conversing with me. She does not feel ready to be home yet. - Physical Exam General: Alert, Oriented x3, Cooperative HEENT: Atraumatic, PERRLA, EOMI, Normocephalic Neck: Supple, No JVD, Negative Carotid Bruits Lungs: Clear to auscultation, Normal air movement Cardiovascular: Regular rate, No murmurs Abdomen: Bowel Sounds Present, Soft, Non Tender, Obese Extremities: No edema, Capillary Refill Less than 3 Seconds Skin: No rashes, No breakdown Musculoskeletal: No Tenderness to Palpation of Joints or Extremities Neurological: Cranial nerves II-XII grossly intact Psych/Mental Status: Normal Affect, Appropriate, Alert and oriented to time, place, person, mood and affect Vital Signs Temp Pulse Resp BP Pulse Ox 98.1 F 71 20 H 157/79 H 96 11/08/18 12:00 11/08/18 12:00 11/08/18 12:00 11/08/18 12:00 11/08/18 12:00 Oxygen Flow Rate (L/min) 1 Oxygen Delivery Method Room Air Weight: 211 lb 13.828 oz Body Mass Index (BMI) 40.7 Intake and Output for Last 24 Hours 11/06/18 11/07/18 11/08/18 23:59 23:59 23:59 Intake Total 1281 / 1281 1480 / 1480 640 / 640 Output Total 950 / 950 Balance 331 / 331 1480 / 1480 640 / 640 Microbiology Past 72 Hours 11/04/18 18:54 Urine Culture - Final Urine, Clean Catch Culture exhibits no growth. 11/04/18 17:28 Blood Culture - Preliminary Blood Culture (Wb) - Right Hand No growth in 48 hours. 11/04/18 17:15 Blood Culture - Preliminary Blood Culture (Wb) - Anticubital Left No growth in 48 hours. 11/05/18 22:29 C. difficile DNA Amplification - Final Stool Laboratory Tests Past 24 Hrs 11/07/18 11/08/18 11/08/18 20:28 05:35 05:35 WBC 9.5 RBC 3.34 L Hgb 9.6 L Hct 29.9 L MCV 89.5 MCH 28.7 MCHC 32.1 RDW 15.6 H RDW Differential 50.4 H Plt Count 223 MPV 9.6 Immature Gran % (Auto) 1.200 H Neut % (Auto) 83.3 H Lymph % (Auto) 10.5 L [place] % (Auto) 4.9 Eos % (Auto) 0.0 Baso % (Auto) 0.1 Absolute Neuts (auto) 7.9 H Absolute Lymphs (auto) 1.00 Total Counted Not Reportable PT INR APTT Sodium 137 Potassium 3.7 Chloride 103 Carbon Dioxide 26.0 Anion Gap 8 BUN 29 H Creatinine 1.28 H Estim Creat Clear Calc 26.02 Est GFR (MDRD) Af Amer 52 L Est GFR (MDRD) Non-Af 43 L BUN/Creatinine Ratio 22.7 H Glucose 147 H Calcium 7.7 L Urine Color Yellow Urine Clarity Clear Urine pH 6.5 Ur Specific [place] 1.010 Urine Protein 15 H Urine Glucose (UA) Normal Urine Ketones Negative Urine Occult Blood 10 H Urine Nitrite Negative Urine Bilirubin Negative Urine Urobilinogen Normal Ur Leukocyte Esterase Negative 11/08/18 05:35 WBC RBC Hgb Hct MCV MCH MCHC RDW RDW Differential Plt Count MPV Immature Gran % (Auto) Neut % (Auto) Lymph % (Auto) [place] % (Auto) Eos % (Auto) Baso % (Auto) Absolute Neuts (auto) Absolute Lymphs (auto) Total Counted PT 13.3 INR 1.0 APTT 29.1 Sodium Potassium Chloride Carbon Dioxide Anion Gap BUN Creatinine Estim Creat Clear Calc Est GFR (MDRD) Af Amer Est GFR (MDRD) Non-Af BUN/Creatinine Ratio Glucose Calcium Urine Color Urine Clarity Urine pH Ur Specific [place] Urine Protein Urine Glucose (UA) Urine Ketones Urine Occult Blood Urine Nitrite Urine Bilirubin Urine Urobilinogen Ur Leukocyte Esterase POC Glucose 11/08/18 11/08/1819 11:44 06:19 21:06 POC Glucose 169 H 149 H 221 H 11/07/18 15:44 POC Glucose 198 H Medical Necessity - Tobacco Use Smoking Status: Former smoker Tobacco Use: Cigarettes Assessment/Plan All Active Problems Severe sepsis (Acute) Acute respiratory failure with hypoxia (Acute) Right lower lobe pneumonia (Acute) Sinus tachycardia by electrocardiogram (Acute) NSTEMI (non-ST elevated myocardial infarction) (Acute) Pneumonia (Acute) Dehydration (Acute) Acute kidney insufficiency (Acute) 1. Acute hypoxic respiratory failure 2/2 RLL CAP, with severe sepsis on presentation, possibly with underlying COPD - continue rocephin, aerosols, solumedrol. -Echo showed EF60%, mid inferior and mid inferoseptal hypokinesis. RVSP 55mmHg, 1-2+ TVI. 2. NSTEMI - 2/2 acute hypoxia from #1. Cath today with mild CAD, no interventions. Continue aspirin, statin, Coreg, chlorthalidone, consider addition of ABDULAZIZ or ARB at discharge. 3. PMR - chronically on prednisone, also on luflonamide 4. HTN - htn has improved since admission, however still elevated. will adjust meds as needed (as above likely needs Abdulaziz-I) 5. Pulmonary htn - follow up with pulm. 6. Risk for underlying AILYN - needs outpatient PSG. 7. CKD III - reassess in AM post cath 8. Hx carotid stenosis - o/p follow up DC planning: Likely home tomorrow, will reassess oxygen needs prior to discharge. DVT ppx: Heparin This patient was seen by Pritesh Pavon PA-C under the supervision of Doctor Jennifer. <Drew Rodriguez - Last Filed: 11/08/18 14:43> - Physical Exam Vital Signs Temp Pulse Resp BP Pulse Ox 98.1 F 71 20 H 157/79 H 96 11/08/18 12:00 11/08/18 12:00 11/08/18 12:00 11/08/18 12:00 11/08/18 12:00 Oxygen Flow Rate (L/min) 1 Oxygen Delivery Method Room Air Weight: 96.1 kg Body Mass Index (BMI) 40.7 Intake and Output for Last 24 Hours 11/06/18 11/07/18 11/08/18 23:59 23:59 23:59 Intake Total 1281 / 1281 1480 / 1480 640 / 640 Output Total 950 / 950 Balance 331 / 331 1480 / 1480 640 / 640 Microbiology Past 72 Hours 11/04/18 18:54 Urine Culture - Final Urine, Clean Catch Culture exhibits no growth. 11/04/18 17:28 Blood Culture - Preliminary Blood Culture (Wb) - Right Hand No growth in 48 hours. 11/04/18 17:15 Blood Culture - Preliminary Blood Culture (Wb) - Anticubital Left No growth in 48 hours. 11/05/18 22:29 C. difficile DNA Amplification - Final Stool Laboratory Tests Past 24 Hrs 11/07/18 11/08/18 11/08/18 20:28 05:35 05:35 WBC 9.5 RBC 3.34 L Hgb 9.6 L Hct 29.9 L MCV 89.5 MCH 28.7 MCHC 32.1 RDW 15.6 H RDW Differential 50.4 H Plt Count 223 MPV 9.6 Immature Gran % (Auto) 1.200 H Neut % (Auto) 83.3 H Lymph % (Auto) 10.5 L [place] % (Auto) 4.9 Eos % (Auto) 0.0 Baso % (Auto) 0.1 Absolute Neuts (auto) 7.9 H Absolute Lymphs (auto) 1.00 Total Counted Not Reportable PT INR APTT Sodium 137 Potassium 3.7 Chloride 103 Carbon Dioxide 26.0 Anion Gap 8 BUN 29 H Creatinine 1.28 H Estim Creat Clear Calc 26.02 Est GFR (MDRD) Af Amer 52 L Est GFR (MDRD) Non-Af 43 L BUN/Creatinine Ratio 22.7 H Glucose 147 H Calcium 7.7 L Urine Color Yellow Urine Clarity Clear Urine pH 6.5 Ur Specific [place] 1.010 Urine Protein 15 H Urine Glucose (UA) Normal Urine Ketones Negative Urine Occult Blood 10 H Urine Nitrite Negative Urine Bilirubin Negative Urine Urobilinogen Normal Ur Leukocyte Esterase Negative 11/08/18 05:35 WBC RBC Hgb Hct MCV MCH MCHC RDW RDW Differential Plt Count MPV Immature Gran % (Auto) Neut % (Auto) Lymph % (Auto) [place] % (Auto) Eos % (Auto) Baso % (Auto) Absolute Neuts (auto) Absolute Lymphs (auto) Total Counted PT 13.3 INR 1.0 APTT 29.1 Sodium Potassium Chloride Carbon Dioxide Anion Gap BUN Creatinine Estim Creat Clear Calc Est GFR (MDRD) Af Amer Est GFR (MDRD) Non-Af BUN/Creatinine Ratio Glucose Calcium Urine Color Urine Clarity Urine pH Ur Specific [place] Urine Protein Urine Glucose (UA) Urine Ketones Urine Occult Blood Urine Nitrite Urine Bilirubin Urine Urobilinogen Ur Leukocyte Esterase POC Glucose 11/08/18 11/08/18 11/07/18 11:44 06:19 21:06 POC Glucose 169 H 149 H 221 H 11/07/18 15:44 POC Glucose 198 H Assessment/Plan This patient was seen in conjunction with Pritesh Pavon PA-C . I have independently interviewed and examined the patient and reviewed pertinent historical, laboratory, and other data. Please refer to Pritesh Pavon PA-C note for details of this patient's presentation, findings, and recommendations. I have reviewed Pritesh Pavon PA-C note and concur with documented findings. In brief, patient is a 78-year-old lady admitted with shortness of breath. Imaging studies demonstrated right lower lobe infiltrate consistent with community-acquired pneumonia. Patient also had elevated troponin cardiology consulted underwent left heart catheterization on 11/08/2018 which failed to demonstrate any hemodynamically significant obstructive lesion Physical Examination: GENERAL: cooperative HEENT: Atraumatic; moist oral mucosa EYES; Anicteric, Normal Conjunctiva NECK; supple, normal thyroid, RESPIRATORY: Diminished to auscultation with bilateral wheezes CARDIOVASCULAR: Regular S1 S2, NEURO: Awake; no lateralizing signs. SKIN: No Rash PSYCH; significantly flat affect Assessment: 1. Acute hypoxic respiratory failure 2. Community-acquired pneumonia 3. Acute non-STEMI secondary to #1 4. Essential hypertension 5. Pulmonary hypertension 6. Suspected obstructive sleep apnea 7. Chronic kidney disease stage III 8. History of carotid artery disease 9. Polymyalgia rheumatica 10. Rheumatoid arthritis 11. History of Nash's esophagus Recommendations: 1. I have discussed the results of my overview and impressions with the patient 2. Options for management were reviewed Code Visit Inpatient E&M: 34054 Subs Hosp L2
[2018-11-08 17:11] LABS: Bedside Glucose 220 mg/dL (70-110)
[2018-11-08] MEDS: Calcium Carbonate 500 MG Tablet PO (19:23)
[2018-11-08] MEDS: Pantoprazole Sodium 40 MG Tablet PO (22:10)
[2018-11-08] MEDS: Atorvastatin Calcium 20 MG Tablet PO (22:10)
[2018-11-08] MEDS: Ceftriaxone 1 GM/50 ML BAG IV (22:11)
[2018-11-08 23:01] LABS: Bedside Glucose 166 mg/dL (70-110)
[2018-11-09] VITALS (10 sets, daily range): BP systolic 119–161; BP diastolic 71–77; PULSE 65–67; RESP 16–20; TEMP 36.3–36.6; O2SAT 92–97
[2018-11-09] MEDS: Ipratropium/Albuterol Sulfate 3 ML AMPUL.NEB INHALATION ×2 (04:57→10:58)
[2018-11-09 06:31] LABS: Hematocrit 29.8 % (37-47); Hemoglobin 9.4 g/dl (12.0-15.0)
[2018-11-09] MEDS: BENZOCAINE/MENTHOL 1 LOZENGE MUCOUS MEM (06:31)
[2018-11-09] MEDS: Heparin Injection (Vial) 5,000 UNIT/ML VIAL 5000 UNIT SC (06:31)
[2018-11-09 06:40] LABS: Bedside Glucose 97 mg/dL (70-110)
[2018-11-09 06:53] LABS: Anion Gap 8 (5-15); BUN 27 mg/dL (7-18); BUN/Creat Ratio 26.2 RATIO (10-20); Calcium,Total 7.8 mg/dL (8.5-10.1); Chloride 103 mmol/L (98-107); Creatinine, Serum 1.03 mg/dL (0.55-1.02); EST Glomerular Filtration Rate 55 mL/min (>60); Est Glom Filt Rate - Afr Amer 67 mL/min (>60); Estimated Creatinine Clearance 32.33 ml/min; Glucose 99 mg/dL (74-106); Potassium 3.6 mmol/L (3.5-5.1); Sodium Level 141 mmol/L (136-145)
[2018-11-09] MEDS: Aspirin 81 MG TAB.CHEW PO (07:46)
[2018-11-09] MEDS: predniSONE 20 MG Tablet 40 MG PO (07:47)
--- NOTE | 2018-11-09 09:39 | PCM.PN.CARD ---
<Mitchell Rosenthal - Last Filed: 11/09/18 09:39> Subjectve: Patient seen and evaluated. She acknowledges improvement in symptoms. She notes wheezing this morning, but improved now. She denies any episodes of chest pain, bleeding, or her right arm discomfort. Objective: Vital Signs Temp Pulse Resp BP Pulse Ox 97.8 F 66 16 161/77 H 96 11/09/18 04:10 11/09/18 08:28 11/09/18 08:28 11/09/18 04:10 11/09/18 08:28 Oxygen Flow Rate (L/min) 1 Oxygen Delivery Method Room Air Weight: 213 lb 10.047 oz Body Mass Index (BMI) 40.7 Intake and Output for Last 24 Hours 11/07/18 11/08/18 11/09/18 23:59 23:59 23:59 Intake Total 1480 / 1480 1260 / 1260 240 / 240 Balance 1480 / 1480 1260 / 1260 240 / 240 General: Healthy Appearing, Oriented x 3, Cooperative HEENT: Atraumatic, Normocephalic Oral: Dry Mucosa Neck: No JVD Lungs: Diminished Abad Bases Cardiovascular: Regular Rhythm, Normal S1, Normal S2, No Murmurs, No Rubs, No Gallops Vascular: No Carotid Bruits, Normal Radial Pulses, - - warm extremities to touch, no upper extremity edema. Extremities: No Cyanosis, No edema, Normal Capillary Refill Skin: No Rashes, No Breakdown Neurological: No Focal Motor or Sensory Deficit Psych/Mental Status: Normal Affect 11/09/18 05:50: Hgb 9.4 L, Hct 29.8 L 11/09/18 05:50: Sodium 141, Potassium 3.6, Chloride 103, Carbon Dioxide 30.0, Anion Gap 8, BUN 27 H, Creatinine 1.03 H, Est GFR (MDRD) Af Amer 67, Est GFR (MDRD) Non-Af 55 L, BUN/Creatinine Ratio 26.2 H, Glucose 99, Calcium 7.8 L Rhythm: EKG: ECHO: 11/05/2018 Interpretation Summary Segmental dysfunction with preserved ejection fraction (see wall motion). The estimated ejection fraction is 60 %. The left atrium is mildly enlarged. There is moderate mitral annular calcification. Extension of the mitral annular calcification onto the posterior mitral valve leaflet. Mild diffuse mitral valve thickening. Trivial mitral valve insufficiency. Mild to moderate (1-2+) tricuspid valve insufficiency. Mild diffuse aortic valve thickening. Moderate focal aortic valve calcification. Calcified aortic root. Right ventricular systolic pressure estimated to be 55 mmHg. Transmitral diastolic flow velocities suggest diastolic dysfunction (pseudonormal pattern). Stress Test: Cardiac Cath: 11/08/2018 CORONARY ANGIOGRAPHY DOMINANCE: Right Dominant LEFT HEART ASSESSMENT Left Ventricular Ejection Fraction: by LV Gram 65 % Normal LV wall motion Elevated Left Ventricular End Diastolic Pressure LVEDP: 26 mmHg LEFT MAIN: Mild calcification LEFT ANTERIOR DESCENDING ARTERY: MID LAD: Mild calcification, 10 - 25 % Stenosis CIRCUMFLEX ARTERY: MID CIRC: Mild luminal irregularities, 10 - 25 % Stenosis DISTAL CIRC: 10 - 25 % Stenosis RIGHT CORONARY ARTERY: Mild luminal irregularities PROX RCA: Mild calcification VALVE FINDINGS: LV pullback procedure: no hemodynamic findings suggestive of hemodynamically significant aortic valve stenosis AORTIC ROOT: Angiographically normal PCI: CT Surgery: Holter monitor: EPS: PPM: CXR: Chest CT Scan: Medical Necessity - Tobacco Use Smoking Status: Former smoker Tobacco Use: Cigarettes Assessment/Plan 1. Acute non-ST segment elevation [place] The patient appears to have findings compatible with acute non-ST segment elevation [place]. This appears to be type II supply demand mismatch event possibly secondary to the patients presenting hypoxia. Her heart catheterization from 11/08/2018 showed ejection fraction of 65% and [place] multivessel coronary artery disease with nonobstructive disease. She is continuing to be monitored. She is continuing medical management. 2. Peripheral arterial occlusive disease She does have a history of significant peripheral arterial occlusive disease. Her right brachial and right radial sites post LHC are clean, dry, and intact. Her pulses are palpable at 2+. She received post-cath site instructions. She has been followed by the [facility] peripheral vascular surgery group and will continue with such follow-up. 3. Hyperlipidemia She will continue risk factor evaluation care as deemed appropriate. 5. Hypertension Her blood pressures have fluctuated throughout her hospitalization. Overall, they have been on the higher end. It is recommended she begin lisinopril 5 mg p.o. daily. It is also recommended she undergo a BMP post discharge prior to cardiology office follow-up to ensure stability. 6. Sepsis thought secondary to acute respiratory related issues secondary to acute pneumonia She will continue under evaluation care per internal medicine and pulmonology/critical care medicine. Thank you for allowing us to participate in the patient's plan of care, if you have any questions please do not hesitate to call. This note was generated using a voice recognition system and there may be incorrect words, spelling, or punctuation that were not noted upon reviewing the office note prior to saving. <Xu Cerda - Last Filed: 11/09/18 16:08> Objective: Vital Signs Temp Pulse Resp BP Pulse Ox 97.3 F L 66 18 119/71 92 11/09/18 10:10 11/09/18 10:58 11/09/18 10:58 11/09/18 10:10 11/09/18 12:00 Oxygen Flow Rate (L/min) 1 Oxygen Delivery Method Room Air Weight: 213 lb 10.047 oz Body Mass Index (BMI) 40.7 Intake and Output for Last 24 Hours 11/07/18 11/08/18 11/09/18 23:59 23:59 23:59 Intake Total 1480 / 1480 1260 / 1260 480 / 480 Balance 1480 / 1480 1260 / 1260 480 / 480 11/09/18 05:50: Hgb 9.4 L, Hct 29.8 L 11/09/18 05:50: Sodium 141, Potassium 3.6, Chloride 103, Carbon Dioxide 30.0, Anion Gap 8, BUN 27 H, Creatinine 1.03 H, Est GFR (MDRD) Af Amer 67, Est GFR (MDRD) Non-Af 55 L, BUN/Creatinine Ratio 26.2 H, Glucose 99, Calcium 7.8 L Rhythm: EKG: ECHO: Stress Test: Cardiac Cath: PCI: CT Surgery: Holter monitor: EPS: PPM: CXR: Chest CT Scan: Assessment/Plan Addendum: The above was discussed and reviewed with Mitchell Rosenthal CNP. The patient was individually evaluated and examined. The patient noted that she was feeling better. She denies any ongoing chest discomfort. She noted less audible wheezing this day compared to yesterday. She had been up and ambulating without obvious difficulty. Her pulmonary examination demonstrated faint expiratory wheezing more right-sided than left-sided and improved overall compared to her previous examination. Her cardiovascular examination demonstrated a regular rhythm with a normal S1-S2. Her lower extremities demonstrated trace bilateral ankle edema. Her cardiac rhythm analysis demonstrated continued sinus rhythm. Overall from a cardiac standpoint the patient appears to be symptomatically improving and remaining hemodynamically stable. It was felt she would continue cardiovascular medical therapy with no additional diagnostic testing or therapeutic intervention at this moment. She will need continued future outpatient cardiovascular follow-up. The patient's case has been discussed and reviewed with the patient and the [facility] staff. This note was generated with [facility] dictation software. It may contain incorrect words, spelling, and punctuation that were not noted in checking the note before signing.
--- NOTE | 2018-11-09 09:43 | PN.CARD_ITS ---
<Mitchell Rosenthal - Last Filed: 11/09/18 09:39> Subjectve: Patient seen and evaluated. She acknowledges improvement in symptoms. She notes wheezing this morning, but improved now. She denies any episodes of chest pain, bleeding, or her right arm discomfort. Objective: Vital Signs Temp Pulse Resp BP Pulse Ox 97.8 F 66 16 161/77 H 96 11/09/18 04:10 11/09/18 08:28 11/09/18 08:28 11/09/18 04:10 11/09/18 08:28 Oxygen Flow Rate (L/min) 1 Oxygen Delivery Method Room Air Weight: 213 lb 10.047 oz Body Mass Index (BMI) 40.7 Intake and Output for Last 24 Hours 11/07/18 11/08/18 11/09/18 23:59 23:59 23:59 Intake Total 1480 / 1480 1260 / 1260 240 / 240 Balance 1480 / 1480 1260 / 1260 240 / 240 General: Healthy Appearing, Oriented x 3, Cooperative HEENT: Atraumatic, Normocephalic Oral: Dry Mucosa Neck: No JVD Lungs: Diminished Abad Bases Cardiovascular: Regular Rhythm, Normal S1, Normal S2, No Murmurs, No Rubs, No Gallops Vascular: No Carotid Bruits, Normal Radial Pulses, - - warm extremities to touch, no upper extremity edema. Extremities: No Cyanosis, No edema, Normal Capillary Refill Skin: No Rashes, No Breakdown Neurological: No Focal Motor or Sensory Deficit Psych/Mental Status: Normal Affect 11/09/18 05:50: Hgb 9.4 L, Hct 29.8 L 11/09/18 05:50: Sodium 141, Potassium 3.6, Chloride 103, Carbon Dioxide 30.0, Anion Gap 8, BUN 27 H, Creatinine 1.03 H, Est GFR (MDRD) Af Amer 67, Est GFR (MDRD) Non-Af 55 L, BUN/Creatinine Ratio 26.2 H, Glucose 99, Calcium 7.8 L Rhythm: EKG: ECHO: 11/05/2018 Interpretation Summary Segmental dysfunction with preserved ejection fraction (see wall motion). The estimated ejection fraction is 60 %. The left atrium is mildly enlarged. There is moderate mitral annular calcification. Extension of the mitral annular calcification onto the posterior mitral valve leaflet. Mild diffuse mitral valve thickening. Trivial mitral valve insufficiency. Mild to moderate (1-2+) tricuspid valve insufficiency. Mild diffuse aortic valve thickening. Moderate focal aortic valve calcification. Calcified aortic root. Right ventricular systolic pressure estimated to be 55 mmHg. Transmitral diastolic flow velocities suggest diastolic dysfunction (pseudonormal pattern). Stress Test: Cardiac Cath: 11/08/2018 CORONARY ANGIOGRAPHY DOMINANCE: Right Dominant LEFT HEART ASSESSMENT Left Ventricular Ejection Fraction: by LV Gram 65 % Normal LV wall motion Elevated Left Ventricular End Diastolic Pressure LVEDP: 26 mmHg LEFT MAIN: Mild calcification LEFT ANTERIOR DESCENDING ARTERY: MID LAD: Mild calcification, 10 - 25 % Stenosis CIRCUMFLEX ARTERY: MID CIRC: Mild luminal irregularities, 10 - 25 % Stenosis DISTAL CIRC: 10 - 25 % Stenosis RIGHT CORONARY ARTERY: Mild luminal irregularities PROX RCA: Mild calcification VALVE FINDINGS: LV pullback procedure: no hemodynamic findings suggestive of hemodynamically significant aortic valve stenosis AORTIC ROOT: Angiographically normal PCI: CT Surgery: Holter monitor: EPS: PPM: CXR: Chest CT Scan: Medical Necessity - Tobacco Use Smoking Status: Former smoker Tobacco Use: Cigarettes Assessment/Plan 1. Acute non-ST segment elevation [place] The patient appears to have findings compatible with acute non-ST segment elevation [place]. This appears to be type II supply demand mismatch event possibly secondary to the patients presenting hypoxia. Her heart catheterization from 11/08/2018 showed ejection fraction of 65% and [place] multivessel coronary artery disease with nonobstructive disease. She is continuing to be monitored. She is continuing medical management. 2. Peripheral arterial occlusive disease She does have a history of significant peripheral arterial occlusive disease. Her right brachial and right radial sites post LHC are clean, dry, and intact. Her pulses are palpable at 2+. She received post-cath site instructions. She has been followed by the [facility] peripheral vascular surgery group and will continue with such follow-up. 3. Hyperlipidemia She will continue risk factor evaluation care as deemed appropriate. 5. Hypertension Her blood pressures have fluctuated throughout her hospitalization. Overall, they have been on the higher end. It is recommended she begin lisinopril 5 mg p.o. daily. It is also recommended she undergo a BMP post discharge prior to cardiology office follow-up to ensure stability. 6. Sepsis thought secondary to acute respiratory related issues secondary to acute pneumonia She will continue under evaluation care per internal medicine and pulmonology/critical care medicine. Thank you for allowing us to participate in the patient's plan of care, if you have any questions please do not hesitate to call. This note was generated using a voice recognition system and there may be incorrect words, spelling, or punctuation that were not noted upon reviewing the office note prior to saving. <Xu Cerda - Last Filed: 11/09/18 16:08> Objective: Vital Signs Temp Pulse Resp BP Pulse Ox 97.3 F L 66 18 119/71 92 11/09/18 10:10 11/09/18 10:58 11/09/18 10:58 11/09/18 10:10 11/09/18 12:00 Oxygen Flow Rate (L/min) 1 Oxygen Delivery Method Room Air Weight: 213 lb 10.047 oz Body Mass Index (BMI) 40.7 Intake and Output for Last 24 Hours 11/07/18 11/08/18 11/09/18 23:59 23:59 23:59 Intake Total 1480 / 1480 1260 / 1260 480 / 480 Balance 1480 / 1480 1260 / 1260 480 / 480 11/09/18 05:50: Hgb 9.4 L, Hct 29.8 L 11/09/18 05:50: Sodium 141, Potassium 3.6, Chloride 103, Carbon Dioxide 30.0, Anion Gap 8, BUN 27 H, Creatinine 1.03 H, Est GFR (MDRD) Af Amer 67, Est GFR (MDRD) Non-Af 55 L, BUN/Creatinine Ratio 26.2 H, Glucose 99, Calcium 7.8 L Rhythm: EKG: ECHO: Stress Test: Cardiac Cath: PCI: CT Surgery: Holter monitor: EPS: PPM: CXR: Chest CT Scan: Assessment/Plan Addendum: The above was discussed and reviewed with Mitchell Rosenthal CNP. The patient was individually evaluated and examined. The patient noted that she was feeling better. She denies any ongoing chest discomfort. She noted less audible wheezing this day compared to yesterday. She had been up and ambulating without obvious difficulty. Her pulmonary examination demonstrated faint expiratory wheezing more right-sided than left- sided and improved overall compared to her previous examination. Her cardiovascular examination demonstrated a regular rhythm with a normal S1-S2. Her lower extremities demonstrated trace bilateral ankle edema. Her cardiac rhythm analysis demonstrated continued sinus rhythm. Overall from a cardiac standpoint the patient appears to be symptomatically improving and remaining hemodynamically stable. It was felt she would continue cardiovascular medical therapy with no additional diagnostic testing or therapeutic intervention at this moment. She will need continued future outpatient cardiovascular follow- up. The patient's case has been discussed and reviewed with the patient and the [facility] staff. This note was generated with [employer] dictation software. It may contain incorrect words, spelling, and punctuation that were not noted in checking the note before signing.
[2018-11-09] MEDS: Chlorthalidone 50 MG Tablet 12.5 MG PO (10:25)
[2018-11-09] MEDS: Pantoprazole Sodium 40 MG Tablet PO (10:25)
[2018-11-09] MEDS: amLODIPine 10 MG Tablet PO (10:26)
[2018-11-09] MEDS: Labetalol 200 MG Tablet 300 MG PO (10:27)
[2018-11-09] MEDS: Carvedilol 25 MG Tablet PO (10:28)
--- NOTE | 2018-11-09 11:27 | PCM.DC ---
- Discharge Diagnoses Current Active Problems: Current Active and Chronic Problems Atherosclerotic heart disease of [place] coronary artery without angina pectoris (Chronic) Severe sepsis (Acute) Acute respiratory failure with hypoxia (Acute) Right lower lobe pneumonia (Acute) Sinus tachycardia by electrocardiogram (Acute) Chronic renal insufficiency, stage II (mild) (Chronic) Hyperglycemia, unspecified (Chronic) Hypertension (Chronic) Carotid stenosis (Chronic) Renal artery stenosis (Chronic) NSTEMI (non-ST elevated myocardial infarction) (Acute) Pneumonia (Acute) HLD (hyperlipidemia) (Chronic) You will use the following diet at home:: Cardiac Your food should be the consistency of: Regular Your liquids should be the consistency of: Regular/Thin Discharge Activity: Return to Normal Activity Allergies/Adverse Reactions: Allergies gabapentin Allergy (Verified 11/04/18 17:22) Unknown nortriptyline Allergy (Verified 11/04/18 17:22) Unknown rofecoxib [From Vioxx] Allergy (Verified 11/04/18 17:22) Unknown tacrolimus Allergy (Verified 11/04/18 17:22) Unknown morphine Adverse Reaction (Verified 11/04/18 17:22) Nausea Medications to take at Discharge Pantoprazole Sodium [Protonix] 40 mg PO DAILY 12/15/14 Acetaminophen [Tylenol Arthritis] 650 mg PO Q4H PRN PRN 11/04/18 Carvedilol 25 mg PO BID 11/04/18 Chlorthalidone 12.5 mg PO DAILY 11/04/18 Cholecalciferol (VIT D3) [Vitamin D3] 2,000 unit PO DAILY 11/04/18 Coenzyme [id number] E [Co Q-10 with l-Carnitine Sftgl] 1 cap PO DAILY 11/04/18 Labetalol HCl 300 mg PO BID 11/04/18 Leflunomide 20 mg PO DAILY 11/04/18 Pravastatin Sodium 20 mg PO QHS 11/04/18 Prednisone 5 mg PO DAILY 11/04/18 Albuterol IH (ProAir) [Proair Hfa] 1 - 2 puff INHALATION Q6H PRN PRN #1 inhaler 11/09/18 Amlodipine [Norvasc] 10 mg PO DAILY #30 tablet 11/09/18 Aspirin [Aspirin, Baby] 81 mg PO DAILY@0800 tab.chew 11/09/18 Prednisone 10 mg PO UD #18 tab 11/09/18 The following prescriptions were given: Albuterol IH (ProAir) [Proair Hfa] 1 - 2 puff INHALATION Q6H PRN PRN #1 inhaler PRN Reason: Sob &/Or Wheezing Amlodipine [Norvasc] 10 mg PO DAILY #30 tablet Prednisone 10 mg PO UD #18 tab Primary Care Physician: Nicolas Villegas MD [Primary Care Provider] - Please follow up with your Primary Care Physician in: 1-2 weeks Test Results: Test results from this visit will be discussed in further detail at your follow-up appointment, if applicable. Please Follow Up With: Xu Cerda MD When: as directed Please Follow Up With: Velasquez Barcenas DO When: 2 weeks Proposed Discharge Date: 11/09/18
[2018-11-09] MEDS: Insulin Lispro 100 UNIT/ML INSULN.PEN SQ (11:28)
--- NOTE | 2018-11-09 11:30 | DCINST_ITS ---
- Discharge Diagnoses Current Active Problems: Current Active and Chronic Problems Atherosclerotic heart disease of [place] coronary artery without angina pectoris (Chronic) Severe sepsis (Acute) Acute respiratory failure with hypoxia (Acute) Right lower lobe pneumonia (Acute) Sinus tachycardia by electrocardiogram (Acute) Chronic renal insufficiency, stage II (mild) (Chronic) Hyperglycemia, unspecified (Chronic) Hypertension (Chronic) Carotid stenosis (Chronic) Renal artery stenosis (Chronic) NSTEMI (non-ST elevated myocardial infarction) (Acute) Pneumonia (Acute) HLD (hyperlipidemia) (Chronic) You will use the following diet at home:: Cardiac Your food should be the consistency of: Regular Your liquids should be the consistency of: Regular/Thin Discharge Activity: Return to Normal Activity Allergies/Adverse Reactions: Allergies gabapentin Allergy (Verified 11/04/18 17:22) Unknown nortriptyline Allergy (Verified 11/04/18 17:22) Unknown rofecoxib [From Vioxx] Allergy (Verified 11/04/18 17:22) Unknown tacrolimus Allergy (Verified 11/04/18 17:22) Unknown morphine Adverse Reaction (Verified 11/04/18 17:22) Nausea Medications to take at Discharge Pantoprazole Sodium [Protonix] 40 mg PO DAILY 12/15/14 Acetaminophen [Tylenol Arthritis] 650 mg PO Q4H PRN PRN 11/04/18 Carvedilol 25 mg PO BID 11/04/18 Chlorthalidone 12.5 mg PO DAILY 11/04/18 Cholecalciferol (VIT D3) [Vitamin D3] 2,000 unit PO DAILY 11/04/18 Coenzyme [id number] E [Co Q-10 with l-Carnitine Sftgl] 1 cap PO DAILY 11/04/18 Labetalol HCl 300 mg PO BID 11/04/18 Leflunomide 20 mg PO DAILY 11/04/18 Pravastatin Sodium 20 mg PO QHS 11/04/18 Prednisone 5 mg PO DAILY 11/04/18 Albuterol IH (ProAir) [Proair Hfa] 1 - 2 puff INHALATION Q6H PRN PRN #1 inhaler 11/09/18 Amlodipine [Norvasc] 10 mg PO DAILY #30 tablet 11/09/18 Aspirin [Aspirin, Baby] 81 mg PO DAILY@0800 tab.chew 11/09/18 Prednisone 10 mg PO UD #18 tab 11/09/18 The following prescriptions were given: Albuterol IH (ProAir) [Proair Hfa] 1 - 2 puff INHALATION Q6H PRN PRN #1 inhaler PRN Reason: Sob &/Or Wheezing Amlodipine [Norvasc] 10 mg PO DAILY #30 tablet Prednisone 10 mg PO UD #18 tab Primary Care Physician: Nicolas Villegas MD [Primary Care Provider] - Please follow up with your Primary Care Physician in: 1-2 weeks Test Results: Test results from this visit will be discussed in further detail at your follow- up appointment, if applicable. Please Follow Up With: Xu Cerda MD When: as directed Please Follow Up With: Velasquez Barcenas DO When: 2 weeks Proposed Discharge Date: 11/09/18
[2018-11-09 11:40] LABS: Bedside Glucose 215 mg/dL (70-110)
--- NOTE | 2018-11-09 11:52 | PHA.DC.COU ---
Pharmacy Services has performed discharge medication counseling for this patient. The patient was counseled on the following discharge medications and changes in medications for homegoing review. 1. PREDNISONE TAPER 2. PROAIR INHALER 3. BABY ASPIRIN 4. AMLODIPINE DOSE INCREASE The Reason for Use, instructions for use, and potential side effects were reviewed for all new medications. The patient's questions regarding all of their medications were answered. The patient was able to verbally demonstrate an understanding of their discharge medications.
--- NOTE | 2018-11-09 13:38 | CASEMGMT ---
This RN CM to room in regards to discharge plan at this time and pt declines HHC or OP therapy at this time. Pt is aware that she can contact PCP once home, if she feels like she needs any additional therapy. Pt voices no further questions/concerns/needs at this time. Pt's daughter is at bedside during discussion and is agreeable. [place] FELICE GONZALEZ
--- NOTE | 2018-11-09 15:08 | PCM.DC.SUM ---
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 Echo: Interpretation Summary Segmental dysfunction with preserved ejection fraction (see wall motion). The estimated ejection fraction is 60 %. The left atrium is mildly enlarged. There is moderate mitral annular calcification. Extension of the mitral annular calcification onto the posterior mitral valve leaflet. Mild diffuse mitral valve thickening. Trivial mitral valve insufficiency. Mild to moderate (1-2+) tricuspid valve insufficiency. Mild diffuse aortic valve thickening. Moderate focal aortic valve calcification. Calcified aortic root. Right ventricular systolic pressure estimated to be 55 mmHg. Transmitral diastolic flow velocities suggest diastolic dysfunction (pseudonormal pattern). RAD/Chest PA and Lateral IMPRESSION: 1. Favorable change. Near-complete clearing of bilateral pulmonary infiltrates. Consultations: [facility]-home care physical therapist [place] - cardiology Operations: None Procedures: 2-D Echocardiogram, Cardiac catheterization Summary of Care Provided: Hospital Course: The patient is a 78 year old F with past medical history of hypertension, CKD stage III, morbid obesity, rheumatoid arthritis, carotid stenosis, renal artery stenosis, who presented to the emergency room with shortness of breath worsening over 4 days. Chest x-ray revealed right lower lobe infiltrate, SPO2 was 84% on room air and she was placed on BiPAP, ABG was unremarkable. Due to the severity of her shortness of breath and need for BiPAP she was placed in the ICU overnight. She did well with BiPAP therapy. Her troponin was significantly elevated at 5.270 at admission, consistent with non-STEMI. Cardiology was consulted. She had mildly elevated BNP however she appeared to be euvolemic. Lactic acid was elevated in addition to fever, tachycardia, tachypnea. She was felt to have severe sepsis secondary to community-acquired pneumonia. She was treated with Rocephin and azithromycin. Once stable she underwent a cardiac catheterization which revealed mild coronary disease with mid LAD 10 to 25% stenosis, mid circumflex 10 to 25% stenosis, distal circumflex 10 to 25% stenosis. No intervention was felt necessary and she was treated medically. Her shortness of breath and increased oxygen demand completely resolved prior to discharge. She did not require oxygen at rest or with exertion. She completed a full course of antibiotics while here. Her non-STEMI was felt to be secondary to the severe hypoxia she presented with. She was also placed on Solu-Medrol here as there is a concern by pulmonology that she has underlying COPD. She was transitioned to an oral prednisone taper and will need to complete this as an outpatient. We also prescribed her albuterol inhaler, Norvasc, aspirin, Coreg, chlorthalidone, pravastatin. She was discharged home in stable condition. She will need follow-up care with her PCP in 1 to 2 weeks, cardiology as directed, and with pulmonary medicine in 2 weeks. She likely has underlying sleep apnea and will need to have a sleep study as an outpatient. This patient was seen by Pritesh Pavon PA-C under the supervision of Doctor Rodriguez. [] - Physical Exam General: Alert, Oriented x3, Cooperative HEENT: Atraumatic, PERRLA, EOMI, Normocephalic Neck: Supple, No JVD, Negative Carotid Bruits Lungs: Clear to auscultation, Normal air movement Cardiovascular: Regular rate, No murmurs Abdomen: Bowel Sounds Present, Soft, Non Tender, Obese Extremities: No edema, Capillary Refill Less than 3 Seconds Skin: No rashes, No breakdown Musculoskeletal: No Tenderness to Palpation of Joints or Extremities Neurological: Cranial nerves II-XII grossly intact Psych/Mental Status: Normal Affect, Appropriate, Alert and oriented to time, place, person, mood and affect Vital Signs Temp Pulse Resp BP Pulse Ox 97.3 F L 66 18 119/71 92 11/09/18 10:10 06/04/19 10:58 11/09/18 10:58 11/09/18 10:10 11/09/18 12:00 Oxygen Flow Rate (L/min) 1 Oxygen Delivery Method Room Air Weight: 213 lb 10.047 oz Body Mass Index (BMI) 40.7 Intake and Output for Last 24 Hours 11/07/18 11/08/18 11/09/18 23:59 23:59 23:59 Intake Total 1480 / 1480 1260 / 1260 480 / 480 Balance 1480 / 1480 1260 / 1260 480 / 480 Microbiology Past 72 Hours 11/04/18 18:54 Urine Culture - Final Urine, Clean Catch Culture exhibits no growth. 11/04/18 17:28 Blood Culture - Preliminary Blood Culture (Wb) - Right Hand No growth in 48 hours. 11/04/18 17:15 Blood Culture - Preliminary Blood Culture (Wb) - Anticubital Left No growth in 48 hours. Laboratory Tests Past 24 Hrs 11/09/18 11/09/18 05:50 05:50 Hgb 9.4 L Hct 29.8 L Sodium 141 Potassium 3.6 Chloride 103 Carbon Dioxide 30.0 Anion Gap 8 BUN 27 H Creatinine 1.03 H Estim Creat Clear Calc 32.33 Est GFR (MDRD) Af Amer 67 Est GFR (MDRD) Non-Af 55 L BUN/Creatinine Ratio 26.2 H Glucose 99 Calcium 7.8 L POC Glucose 11/09/18 11/09/18 11/08/18 11:26 06:33 22:13 POC Glucose 215 H 97 166 H 11/08/18 17:04 POC Glucose 220 H Discharge Diet: Low fat/ Low Cholesterol, 2000 mg Sodium Diet Discharge Activity: Return to Normal Activity Home Medications: Medications to take at Discharge Pantoprazole Sodium [Protonix] 40 mg PO DAILY 12/15/14 Acetaminophen [Tylenol Arthritis] 650 mg PO Q4H PRN PRN 11/04/18 Carvedilol 25 mg PO BID 11/04/18 Chlorthalidone 12.5 mg PO DAILY 11/04/18 Cholecalciferol (VIT D3) [Vitamin D3] 2,000 unit PO DAILY 11/04/18 Coenzyme [id number] E [Co Q-10 with l-Carnitine Sftgl] 1 cap PO DAILY 11/04/18 Labetalol HCl 300 mg PO BID 11/04/18 Leflunomide 20 mg PO DAILY 11/04/18 Pravastatin Sodium 20 mg PO QHS 11/04/18 Prednisone 5 mg PO DAILY 11/04/18 Albuterol IH (ProAir) [Proair Hfa] 1 - 2 puff INHALATION Q6H PRN PRN #1 inhaler 11/09/18 Amlodipine [Norvasc] 10 mg PO DAILY #30 tablet 11/09/18 Aspirin [Aspirin, Baby] 81 mg PO DAILY@0800 tab.chew 11/09/18 Prednisone 10 mg PO UD #18 tab 11/09/18 Following Prescrptions Were Given to Patient: Albuterol IH (ProAir) [Proair Hfa] 1 - 2 puff INHALATION Q6H PRN PRN #1 inhaler PRN Reason: Sob &/Or Wheezing Amlodipine [Norvasc] 10 mg PO DAILY #30 tablet Prednisone 10 mg PO UD #18 tab Primary Care Physician: Nicolas Villegas MD [Primary Care Provider] - Please follow up with your Primary Care Physician in: 1-2 weeks Please Follow Up With: Xu Cerda MD When: as directed Please Follow Up With: Velasquez Barcenas DO When: 2 weeks Please Follow Up With: Nicolas Villegas MD Disposition: Home Minutes spent on discharge:: 35 Patient Condition:: Stable Medical Necessity - Tobacco Use Smoking Status: Former smoker Tobacco Use: Cigarettes Meaningful Use Info Meaningful Use Diagnoses (Choose all that apply): None applicable <Drew Rodriguez - Last Filed: 11/09/18 15:26> Discharge Date and Diagnosis - Secondary Discharge Diagnosis Chronic Problems 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 I have independently interviewed and examined the patient and reviewed pertinent historical, laboratory, and other data. Please refer to Pritesh Pavon PA-C note for details of this patient's presentation, findings, and recommendations. I have reviewed Pritesh Pavon PA-C note and concur with documented findings. In brief, patient is a 78-year-old lady admitted with shortness of breath. Imaging studies demonstrated right lower lobe infiltrate consistent with community-acquired pneumonia. Patient also had elevated troponin cardiology consulted underwent left heart catheterization on 11/08/2018 which failed to demonstrate any hemodynamically significant obstructive lesion. Patient was discharged home once medically stable Physical Examination: GENERAL: cooperative HEENT: Atraumatic; moist oral mucosa EYES; Anicteric, Normal Conjunctiva NECK; supple, normal thyroid, RESPIRATORY: Diminished to auscultation CARDIOVASCULAR: Regular S1 S2, NEURO: Awake; no lateralizing signs. SKIN: No Rash PSYCH; significantly flat affect Assessment: 1. Acute hypoxic respiratory failure 2. Community-acquired pneumonia 3. Acute non-STEMI secondary to #1 4. Essential hypertension 5. Pulmonary hypertension 6. Suspected obstructive sleep apnea 7. Chronic kidney disease stage III 8. History of carotid artery disease 9. Polymyalgia rheumatica 10. Rheumatoid arthritis 11. History of Nash's esophagus Hospital course: As documented above - Physical Exam Vital Signs Temp Pulse Resp BP Pulse Ox 97.3 F L 66 18 119/71 92 11/09/18 10:10 11/09/18 10:58 11/09/18 10:58 11/09/18 10:10 11/09/18 12:00 Oxygen Flow Rate (L/min) 1 Oxygen Delivery Method Room Air Weight: 96.9 kg Body Mass Index (BMI) 40.7 Intake and Output for Last 24 Hours 11/07/18 11/08/18 11/09/18 23:59 23:59 23:59 Intake Total 1480 / 1480 1260 / 1260 480 / 480 Balance 1480 / 1480 1260 / 1260 480 / 480 Microbiology Past 72 Hours 11/04/18 18:54 Urine Culture - Final Urine, Clean Catch Culture exhibits no growth. 11/04/18 17:28 Blood Culture - Preliminary Blood Culture (Wb) - Right Hand No growth in 48 hours. 11/04/18 17:15 Blood Culture - Preliminary Blood Culture (Wb) - Anticubital Left No growth in 48 hours. Laboratory Tests Past 24 Hrs 11/09/18 11/09/18 05:50 05:50 Hgb 9.4 L Hct 29.8 L Sodium 141 Potassium 3.6 Chloride 103 Carbon Dioxide 30.0 Anion Gap 8 BUN 27 H Creatinine 1.03 H Estim Creat Clear Calc 32.33 Est GFR (MDRD) Af Amer 67 Est GFR (MDRD) Non-Af 55 L BUN/Creatinine Ratio 26.2 H Glucose 99 Calcium 7.8 L POC Glucose 11/09/18 11/09/18 11/08/18 11:26 06:33 22:13 POC Glucose 215 H 97 166 H 11/08/18 17:04 POC Glucose 220 H Code Visit Inpatient E&M: 40672 Disch Hosp
--- NOTE | 2018-11-09 15:15 | DS.PCM_ITS ---
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 Echo: Interpretation Summary Segmental dysfunction with preserved ejection fraction (see wall motion). The estimated ejection fraction is 60 %. The left atrium is mildly enlarged. There is moderate mitral annular calcification. Extension of the mitral annular calcification onto the posterior mitral valve leaflet. Mild diffuse mitral valve thickening. Trivial mitral valve insufficiency. Mild to moderate (1-2+) tricuspid valve insufficiency. Mild diffuse aortic valve thickening. Moderate focal aortic valve calcification. Calcified aortic root. Right ventricular systolic pressure estimated to be 55 mmHg. Transmitral diastolic flow velocities suggest diastolic dysfunction (pseudonormal pattern). RAD/Chest PA and Lateral IMPRESSION: 1. Favorable change. Near-complete clearing of bilateral pulmonary infiltrates. 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 Chest x-ray revealed right lower lobe infiltrate, SPO2 was 84% on room air and she was placed on BiPAP, ABG was unremarkable. Due to the severity of her shortness of breath and need for BiPAP she was placed in the ICU overnight. She did well with BiPAP therapy. Her troponin was significantly elevated at 5.270 at admission, consistent with non-STEMI. Cardiology was consulted. She had mildly elevated BNP however she appeared to be euvolemic. Lactic acid was elevated in addition to fever, tachycardia, tachypnea. She was felt to have severe sepsis secondary to community-acquired pneumonia. She was treated with Rocephin and azithromycin. Once stable she underwent a cardiac catheterization which revealed mild coronary disease with mid LAD 10 to 25% s tenosis, mid circumflex 10 to 25% stenosis, distal circumflex 10 to 25% stenosis. No intervention was felt necessary and she was treated medically. Her shortness of breath and increased oxygen demand completely resolved prior to discharge. She did not require oxygen at rest or with exertion. She completed a full course of antibiotics while here. Her non-STEMI was felt to be secondary to the severe hypoxia she presented with. She was also placed on Solu-Medrol here as there is a concern by pulmonology that she has underlying COPD. She was transitioned to an oral prednisone taper and will need to complete this as an outpatient. We also prescribed her albuterol inhaler, Norvasc, aspirin, Coreg, chlorthalidone, pravastatin. She was discharged home in stable condition. She will need follow-up care with her PCP in 1 to 2 weeks, cardiology as directed, and with pulmonary medicine in 2 weeks. She likely has underlying sleep apnea and will need to have a sleep study as an outpatient. This patient was seen by Pritesh Pavon PA-C under the supervision of Doctor Rodriguez. [] - Physical Exam General: Alert, Oriented x3, Cooperative HEENT: Atraumatic, PERRLA, EOMI, Normocephalic Neck: Supple, No JVD, Negative Carotid Bruits Lungs: Clear to auscultation, Normal air movement Cardiovascular: Regular rate, No murmurs Abdomen: Bowel Sounds Present, Soft, Non Tender, Obese Extremities: No edema, Capillary Refill Less than 3 Seconds Skin: No rashes, No breakdown Musculoskeletal: No Tenderness to Palpation of Joints or Extremities Neurological: Cranial nerves II-XII grossly intact Psych/Mental Status: Normal Affect, Appropriate, Alert and oriented to time, place, person, mood and affect Vital Signs Temp Pulse Resp BP Pulse Ox 97.3 F L 66 18 119/71 92 11/09/18 10:10 11/09/18 10:58 11/09/18 10:58 11/09/18 10:10 11/09/18 12:00 Oxygen Flow Rate (L/min) 1 Oxygen Delivery Method Room Air Weight: 213 lb 10.047 oz Body Mass Index (BMI) 40.7 Intake and Output for Last 24 Hours 11/07/18 11/08/18 11/09/18 23:59 23:59 23:59 Intake Total 1480 / 1480 1260 / 1260 480 / 480 Balance 1480 / 1480 1260 / 1260 480 / 480 Microbiology Past 72 Hours 11/04/18 18:54 Urine Culture - Final Urine, Clean Catch Culture exhibits no growth. 11/04/18 17:28 Blood Culture - Preliminary Blood Culture (Wb) - Right Hand No growth in 48 hours. 11/04/18 17:15 Blood Culture - Preliminary Blood Culture (Wb) - Anticubital Left No growth in 48 hours. Laboratory Tests Past 24 Hrs 11/09/18 11/09/18 05:50 05:50 Hgb 9.4 L Hct 29.8 L Sodium 141 Potassium 3.6 Chloride 103 Carbon Dioxide 30.0 Anion Gap 8 BUN 27 H Creatinine 1.03 H Estim Creat Clear Calc 32.33 Est GFR (MDRD) Af Amer 67 Est GFR (MDRD) Non-Af 55 L BUN/Creatinine Ratio 26.2 H Glucose 99 Calcium 7.8 L POC Glucose 11/09/18 11/09/18 11/08/18 11:26 06:33 22:13 POC Glucose 215 H 97 166 H 11/08/18 17:04 POC Glucose 220 H Discharge Diet: Low fat/ Low Cholesterol, 2000 mg Sodium Diet Discharge Activity: Return to Normal Activity Home Medications: Medications to take at Discharge Pantoprazole Sodium [Protonix] 40 mg PO DAILY 12/15/14 Acetaminophen [Tylenol Arthritis] 650 mg PO Q4H PRN PRN 11/04/18 Carvedilol 25 mg PO BID 11/04/18 Chlorthalidone 12.5 mg PO DAILY 11/04/18 Cholecalciferol (VIT D3) [Vitamin D3] 2,000 unit PO DAILY 11/04/18 Coenzyme [id number] E [Co Q-10 with l-Carnitine Sftgl] 1 cap PO DAILY 11/04/18 Labetalol HCl 300 mg PO BID 11/04/18 Leflunomide 20 mg PO DAILY 11/04/18 Pravastatin Sodium 20 mg PO QHS 11/04/18 Prednisone 5 mg PO DAILY 11/04/18 Albuterol IH (ProAir) [Proair Hfa] 1 - 2 puff INHALATION Q6H PRN PRN #1 inhaler 11/09/18 Amlodipine [Norvasc] 10 mg PO DAILY #30 tablet 11/09/18 Aspirin [Aspirin, Baby] 81 mg PO DAILY@0800 tab.chew 11/09/18 Prednisone 10 mg PO UD #18 tab 11/09/18 Following Prescrptions Were Given to Patient: Albuterol IH (ProAir) [Proair Hfa] 1 - 2 puff INHALATION Q6H PRN PRN #1 inhaler PRN Reason: Sob &/Or Wheezing Amlodipine [Norvasc] 10 mg PO DAILY #30 tablet Prednisone 10 mg PO UD #18 tab Primary Care Physician: Nicolas Villegas MD [Primary Care Provider] - Please follow up with your Primary Care Physician in: 1-2 weeks Please Follow Up With: Xu Cerda MD When: as directed Please Follow Up With: Velasquez Barcenas DO When: 2 weeks Please Follow Up With: Nicolas Villegas MD Disposition: Home Minutes spent on discharge:: 35 Patient Condition:: Stable Medical Necessity - Tobacco Use Smoking Status: Former smoker Tobacco Use: Cigarettes Meaningful Use Info Meaningful Use Diagnoses (Choose all that apply): None applicable <Drew Rodriguez - Last Filed: 11/09/18 15:26> Discharge Date and Diagnosis - Secondary Discharge Diagnosis Chronic Problems 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 I have independently interviewed and examined the patient and reviewed pertinent historical, laboratory, and other data. Please refer to Pritesh Pavon PA-C note for details of this patient's presentation, findings, and recommendations. I have reviewed Pritesh Pavon PA-C note and concur with documented findings. In brief, patient is a 78-year-old lady admitted with shortness of breath. Imaging studies demonstrated right lower lobe infiltrate consistent with community-acquired pneumonia. Patient also had elevated troponin cardiology consulted underwent left heart catheterization on 11/08/2018 which failed to demonstrate any hemodynamically significant obstructive lesion. Patient was discharged home once medically stable Physical Examination: GENERAL: cooperative HEENT: Atraumatic; moist oral mucosa EYES; Anicteric, Normal Conjunctiva NECK; supple, normal thyroid, RESPIRATORY: Diminished to auscultation CARDIOVASCULAR: Regular S1 S2, NEURO: Awake; no lateralizing signs. SKIN: No Rash PSYCH; significantly flat affect Assessment: 1. Acute hypoxic respiratory failure 2. Community-acquired pneumonia 3. Acute non-STEMI secondary to #1 4. Essential hypertension 5. Pulmonary hypertension 6. Suspected obstructive sleep apnea 7. Chronic kidney disease stage III 8. History of carotid artery disease 9. Polymyalgia rheumatica 10. Rheumatoid arthritis 11. History of Nash's esophagus Hospital course: As documented above - Physical Exam Vital Signs Temp Pulse Resp BP Pulse Ox 97.3 F L 66 18 119/71 92 11/09/18 10:10 11/09/18 10:58 11/09/18 10:58 11/09/18 10:10 11/09/18 12:00 Oxygen Flow Rate (L/min) 1 Oxygen Delivery Method Room Air Weight: 96.9 kg Body Mass Index (BMI) 40.7 Intake and Output for Last 24 Hours 11/07/18 11/08/18 11/09/18 23:59 23:59 23:59 Intake Total 1480 / 1480 1260 / 1260 480 / 480 Balance 1480 / 1480 1260 / 1260 480 / 480 Microbiology Past 72 Hours 11/04/18 18:54 Urine Culture - Final Urine, Clean Catch Culture exhibits no growth. 11/04/18 17:28 Blood Culture - Preliminary Blood Culture (Wb) - Right Hand No growth in 48 hours. 11/04/18 17:15 Blood Culture - Preliminary Blood Culture (Wb) - Anticubital Left No growth in 48 hours. Laboratory Tests Past 24 Hrs 11/09/18 11/09/18 05:50 05:50 Hgb 9.4 L Hct 29.8 L Sodium 141 Potassium 3.6 Chloride 103 Carbon Dioxide 30.0 Anion Gap 8 BUN 27 H Creatinine 1.03 H Estim Creat Clear Calc 32.33 Est GFR (MDRD) Af Amer 67 Est GFR (MDRD) Non-Af 55 L BUN/Creatinine Ratio 26.2 H Glucose 99 Calcium 7.8 L POC Glucose 11/09/18 11/09/18 11/08/18 11:26 06:33 22:13 POC Glucose 215 H 97 166 H 11/08/18 17:04 POC Glucose 220 H Code Visit Inpatient E&M: 34159 Disch Hosp
--- NOTE | 2018-11-10 13:55 | CASEMGMT ---
FELICE GONZALEZ Discharge F/U Phone Call LACE: 9 Strata: 3 Discharge date: 11/09/18 Call date: 11/10/18 Call time: [id number] Duration: 2 minutes Admission dx: Acute hypoxic respiratory failure/CAP Pt states 'doing ok' since discharge and states 'I don't feel real great but I didn't expect to.' Pt states no questions regarding discharge instructions or medications at this time. Pt states that there was a slight 'mix up' with her meds but states that she 'got that straightened out with the dr's office' this am. Pt states that improvement in the food/menu is her only suggestion for [facility] at this time and this RN LISA advised her that this is a current work in process at this time. Pt states that she has f/u appt's scheduled and plans to keep. Pt voices no further questions/concerns/needs at this time. [place] FELICE GONZALEZ
== END 2018-11-09 13:53 | disposition home or self-care (01) | DRG 871 ==
LOC: ED 18:10 → ICU 11-05 05:18 → PCU 11-05 13:07
PROVIDERS: Family Medicine; Internal Medicine Cardiovascular Disease; Admitting Provider Internal Medicine; Emergency Provider Emergency Medicine; Family Provider Family Medicine; PCP Family Medicine; Referring Provider Internal Medicine; Visit Provider Internal Medicine
DX: A41.9 Sepsis, unspecified organism (principal); J96.01 Acute respiratory failure with hypoxia; J18.1 Lobar pneumonia, unspecified organism; I21.4 Non-ST elevation (NSTEMI) myocardial infarction; Z68.41 Body mass index [BMI] 40.0-44.9, adult; I27.20 Pulmonary hypertension, unspecified; E66.01 Morbid (severe) obesity due to excess calories; M35.3 Polymyalgia rheumatica; Z79.52 Long term (current) use of systemic steroids; I12.9 Hypertensive chronic kidney disease with stage 1 through stage 4 chronic kidney disease, or unspecified chronic kidney disease; N18.3 Chronic kidney disease, stage 3 (moderate); I70.1 Atherosclerosis of renal artery; M19.90 Unspecified osteoarthritis, unspecified site; Z86.73 Personal history of transient ischemic attack (TIA), and cerebral infarction without residual deficits; K22.70 Barrett's esophagus without dysplasia; R65.20 Severe sepsis without septic shock; M06.9 Rheumatoid arthritis, unspecified; I65.22 Occlusion and stenosis of left carotid artery; E78.5 Hyperlipidemia, unspecified; Z79.899 Other long term (current) drug therapy; Z79.02 Long term (current) use of antithrombotics/antiplatelets; I16.0 Hypertensive urgency; Z87.891 Personal history of nicotine dependence; I73.9 Peripheral vascular disease, unspecified; I25.10 Atherosclerotic heart disease of native coronary artery without angina pectoris
CPT/HCPCS: 36415; 36600; 71045; 71046; 80048; 80053; 80061; 81002; 82803; 82962; 83605; 83880; 84484; 85014; 85018; 85025; 85610; 85730; 87040; 87086; 87449; 87493; 93005; 93306; 93458; 94002; 94640; 97110; 97162; 97166; 97530; 97802; 99152; 99153; 99285; J7030; J7040; J7050; Q9957; A4216; C1769; C1894; Q9967

== ENCOUNTER → 2018-12-29 | Outpatient (CLI) | payer MEDICARE, OTHER, SELFPAY ==
[2018-12-02 13:42] VITALS: BMI 38.9
== END | disposition home or self-care (01) ==
LOC: SL 23:19
PROVIDERS: Family Provider Family Medicine; PCP Family Medicine; Visit Provider Nurse Practitioner Acute Care
DX: G47.33 Obstructive sleep apnea (adult) (pediatric) (principal)
CPT/HCPCS: 95810

== ENCOUNTER → 2019-01-13 12:24 | Outpatient (CLI) | payer MEDICARE, OTHER, SELFPAY ==
[2018-12-02 13:42] VITALS: BMI 38.9
[2018-12-06 14:29] VITALS: BMI 38.9
[2019-01-13 12:44] VITALS: PULSE 77; PULSE 79; PULSE 84; PULSE 88; PULSE 89; O2SAT 92; O2SAT 93; O2SAT 94; O2SAT 95; O2SAT 96; O2SAT 98
--- NOTE | 2019-01-13 12:46 | CPS ---
Pt states she has trouble walking due to back pain.
--- NOTE | 2019-01-13 14:48 | PCM.PSN.6M ---
PSN 6 Minute Walk Test - 6 Minute Walk Test 6 Minute Walk Test: 6 Minute Walk Test PSN:6-Minute Walk Test Start: 01/13/19 12:44 Freq: Status: Active Protocol: RESP.6MINW Document 01/13/19 12:44 SMB (Rec: 01/13/19 12:47 SMB [id number]) 6 Minute Walk Test Date Performed 01/13/19 Time Performed 12:32 Height 5 ft 1 in Weight: 90.718 kg Weight in Pounds 200.[address]: Dulce Malcolm Assistive device used: Walker Pre-test Oxygen Delivery Method Room Air Pulse Ox (%) 96 Pulse Rate (60-100 beats/min) 79 Dyspnea Zamzam Scale (0-10) 0 Exertion Zamzam Scale (6-20) 11 1st minute Oxygen Delivery Method Room Air Pulse Ox (%) 92 Pulse Rate (60-100 beats/min) 88 2nd minute Oxygen Delivery Method Room Air Pulse Ox (%) 94 Pulse Rate (60-100 beats/min) 84 Number of Rests Taken 1 3rd minute Oxygen Delivery Method Room Air Pulse Ox (%) 96 Pulse Rate (60-100 beats/min) 89 4th minute Oxygen Delivery Method Room Air Pulse Ox (%) 98 Pulse Rate (60-100 beats/min) 84 Number of Rests Taken 1 5th minute Oxygen Delivery Method Room Air Pulse Ox (%) 93 Pulse Rate (60-100 beats/min) 79 Number of Rests Taken 1 6th minute Oxygen Delivery Method Room Air Pulse Ox (%) 92 Pulse Rate (60-100 beats/min) 79 Post-test Oxygen Delivery Method Room Air Pulse Ox (%) 95 Pulse Rate (60-100 beats/min) 77 Dyspnea Zamzam Scale (0-10) 0 Exertion Zamzam Scale (6-20) 14 Full Laps Walked 5 Partial Lap, Number of Tiles Walked 8 Total Distance Walked (ft) 303 01/13/19 12:46 Cardiopulmonary Services by Rola Quinn Pt states she has trouble walking due to back pain. Initialized on 01/13/19 12:46 - END OF NOTE - Interpretation Interpretation: The patient was able to ambulate only 303 feet over the course of 6 minutes on room air with the assistance of a walker and 2 breaks. The patient did experience significant desaturation from a baseline of 96% to as low as 92%. These findings are consistent with a musculoskeletal limitation exercise tolerance. - Recommendations Recommendations: No supplemental oxygen is indicated at this time. However, sensitivity for desaturation is severely limited given limited distance traveled.
== END ==
PROVIDERS: Family Provider Family Medicine; PCP Family Medicine; Referring Provider Nurse Practitioner Acute Care; Visit Provider Nurse Practitioner Acute Care
DX: R06.09 Other forms of dyspnea (principal)
CPT/HCPCS: 94618

== ENCOUNTER → 2019-01-20 | Outpatient (CLI) | payer MEDICARE, OTHER, SELFPAY ==
[2018-12-02 13:42] VITALS: BMI 38.9
[2018-12-06 14:29] VITALS: BMI 38.9
--- NOTE | 2019-01-21 10:32 | PFT ---
INTRODUCTION: The patient is a 78-year-old female that presents for pulmonary function studies secondary to a diagnosis of dyspnea. Respiratory therapy reports good patient effort. Bronchodilators were used during testing. INTERPRETATION: Forced expiration spirometry demonstrates no evidence of a large airways obstructive ventilatory defect. There was no significant response to aerosolized bronchodilators. Spirograms are of good quality and plateau normally. Body plethysmography was performed and reveals lung volumes to be within normal limits. Diffusing capacity by single breath CO is reduced at 61% of predicted. IMPRESSION: Isolated reduction in diffusing capacity, which could be related to an underlying pulmonary vascular disorder such as pulmonary hypertension. There are no previous pulmonary function studies available for comparison. Clinical correlation is recommended.
== END | disposition home or self-care (01) ==
LOC: PSN 10:41
PROVIDERS: Family Provider Family Medicine; PCP Family Medicine; Referring Provider Nurse Practitioner Acute Care; Visit Provider Nurse Practitioner Acute Care
DX: R06.09 Other forms of dyspnea (principal)
CPT/HCPCS: 94060; 94726; 94729

== ENCOUNTER → 2019-02-01 | Outpatient (CLI) | payer MEDICARE, OTHER, SELFPAY ==
[2018-12-06 14:29] VITALS: BMI 38.9
[2019-02-01] MEDS: Zolpidem Tartrate 5 MG Tablet PO (21:30)
== END | disposition home or self-care (01) ==
LOC: SL 21:49
PROVIDERS: Family Provider Family Medicine; PCP Family Medicine; Referring Provider Nurse Practitioner Acute Care; Visit Provider Nurse Practitioner Acute Care
DX: G47.33 Obstructive sleep apnea (adult) (pediatric) (principal)
CPT/HCPCS: 95811

== ENCOUNTER → 2019-06-14 13:00 | Outpatient (CLI) | payer MEDICARE, OTHER, SELFPAY ==
[2019-05-24 07:56] VITALS: BMI 36.8
== END ==
PROVIDERS: Family Provider Family Medicine; PCP Family Medicine; Visit Provider Nurse Practitioner Acute Care
DX: G47.33 Obstructive sleep apnea (adult) (pediatric) (principal)
CPT/HCPCS: 98960; G0463

== ENCOUNTER 2020-01-22 09:58 | Emergency (ER) | payer MEDICARE, OTHER, SELFPAY ==
[2020-01-02 10:05] VITALS: BMI 37.8
[2020-01-22 09:59] VITALS: BP 143/59; PULSE 73; RESP 16; TEMP 36.3; O2SAT 97; BMI 36.4
[2020-01-22 10:17] VITALS: BP 212/64; PULSE 72; RESP 14; O2SAT 96
--- NOTE | 2020-01-22 10:40 | CT_ITS ---
STUDY: CT ABDOMEN AND PELVIS WITH CONTRAST REASON FOR EXAM: Female, 79 years old. Abdominal pain, nausea one week RADIATION DOSAGE (If Supplied By Facility): DLP = ( 1420.20 ) mGycm TECHNIQUE: Transaxial images were obtained from the dome of the diaphragm to the symphysis pubis without oral contrast. ml of 100mL Isovue-300 contrast was administered. Sagittal and coronal images were reconstructed. Individualized dose optimization techniques were used for this CT. COMPARISON: Chest x-ray 11/07/2017 FINDINGS: Body wall soft tissues: No acute process. Osseous structures: Prominent multilevel lumbar degenerative disc disease affecting all levels. Herniated disc vacuum changes at L3. Scoliosis. There is evidence of multilevel lumbar spinal canal narrowing and foraminal stenosis. Inferior chest: Clear lung bases, normal distal esophagus, mitral annulus calcification, coronary calcifications, no significant cardiomegaly. Hepatobiliary: Gallbladder absent, nondilated biliary tree, normal liver. Pancreas: No acute process. Spleen: Normal. Adrenal glands: Normal. Urogenital: Benign bilateral renal cysts. Symmetric nephrograms. Normal collecting systems, ureters, urinary bladder. Uterus absent. No adnexal mass or cyst. Pelvic floor and sidewalls and retroperitoneum: No mass or adenopathy. Vasculature: Circumferential dense calcification of the wall of the aorta with evidence of at least mild to moderate stenosis at the level of the takeoff of the renal arteries, right renal stent, prominent ossification at the origin of the left renal artery, moderate desiccation at the origin of the celiac trunk and severe calcifications at the origin of the superior mesenteric artery. Prominent calcified plaque of the common iliac arteries. Multifocal stenosis is likely. The study was not optimized for assessment of the arteries. Stomach: No acute process. Small bowel and mesentery: No acute process. Large bowel: Circumferential thickening of wall of the and proximal to mid sigmoid colon over relatively long segment, with acute inflammatory induration and hyperemia in the mesentery, acute sigmoid colitis without focal diverticulitis. Distal sigmoid and rectum normal. Free fluid or free air: None. CT/Abdomen/Pelvis W IV Cont ONLY IMPRESSION: Acute sigmoid colitis. Prominent multilevel spondylosis with multilevel stenosis. Prominent scoliosis. Electronically Signed: Ryder Martinez MD at 13:36 EDT Tel , Service support ,
--- NOTE | 2020-01-22 10:41 | EKG12_ITS ---
Test Reason : GENERAL ILLNESS Blood Pressure : / mmHG Vent. Rate : 070 BPM Atrial Rate : 070 BPM P-R Int : 168 ms QRS Dur : 086 ms QT Int : 428 ms P-R-T Axes : -20 001 104 degrees QTc Int : 462 ms Normal sinus rhythm Left ventricular hypertrophy with repolarization abnormality Abnormal ECG Confirmed by JORGE FLOR, NATALIA ([id number]), editor school photograph RC OSEI ([id number]) on 01/23/2020 2:43:39 PM Referred By: ERICA Confirmed By:NATALIA PATEL MD
--- NOTE | 2020-01-22 10:44 | ED.DCSUM_ITS ---
History of Present Illness Chief Complaint: Abd Pain Informant: Patient - Abdominal Pain/Flank Pain Onset: Days Context: Gradual Onset Timing: Continuous Quality: Cramping Location: Diffuse Worsened by: Food Relieved by: Nothing - Nausea/Vomiting/Emesis GI Symptom: Nausea, Vomiting Onset: Days Quality: Nonbilious. Negative for: Blood streaks, Coffee ground, Hematemesis - Diarrhea/Melena/Hematochezia GI Symptom: Negative for: Diarrhea, Melena, Hematochezia Associated Symptoms: Negative for: Dysuria, Frequency Narrative: Patient is a 79-year-old female presenting from home for 1 week of abdominal pain. Patient states she is had some cramping for the past week that is diffuse. It is more on her left and right abdomen and seems to change sites of pain which that she is laying on. She is had a couple episodes of vomiting that she is been stomach contact and bile. She does have associated nausea. She states she has been having as many bowel movements is normal but is continued to pass gas. She actually states her stomach been making a lot of noises from the gas. She does get relief after flexing gas. Her last bowel movement was yest erday and she denies any black or bloody stool. She states she feels very bloated. She denies any recent antibiotics, sick contacts or history of C. difficile. She she does have a history of GI issues but does not have any further information. She is a history of diverticulosis but not diverticulitis. States she has not taken any of her home medication for the past 2 days because she is not been feeling well. She denies any urinary symptoms. Denies any associated chest pain, shortness of breath or difficulty breathing. She denies any fever or chills. Past Medical History - Allergies and Home Meds Allergies/Adverse Reactions: Allergies gabapentin Allergy (Verified 01/22/20 10:01) Unknown nortriptyline Allergy (Verified 01/22/20 10:01) Unknown rofecoxib [From Vioxx] Allergy (Verified 01/22/20 10:01) Unknown tacrolimus Allergy (Verified 01/22/20 10:01) Unknown morphine Adverse Reaction (Verified 01/22/20 10:01) Nausea Primary Care Physician: Nicolas Villegas MD [Primary Care Provider] - Past Medical History: - - GERD, hypertension, hyperlipidemia, pulmonary hypertension, CKD 2, AILYN Surgical History: appendectomy, cholecystectomy, hysterectomy, total hip arthroplasty, - - Exploratory laparotomy Smoking Status: Never smoker - Family History Paternal Family History: Family History (Last Updated 01/02/20 @ 11:07 by SUKHJINDER Serna) Mother Cancer Father Emphysema of lung Aunt Cancer Grandfather Vascular disease Grandmother Diabetes Brother Cancer Family History: Reports: No pertinent history Maternal Family History: Family History (Last Updated 01/02/20 @ 11:07 by SUKHJINDER Serna) Mother Cancer Father Emphysema of lung Aunt Cancer Grandfather Vascular disease Grandmother Diabetes Brother Cancer Family History: Reports: No pertinent history Review of Systems General: Reports: Malaise. Denies: Chills, Fever, Sweats Eyes: Denies: Visual changes - bilaterally, Diplopia ENT: Denies: Rhinorrhea, Sore throat Cardiovascular: Denies: Chest pain, Palpitations Respiratory: Denies: Dyspnea, Cough, Dyspnea on exertion Gastrointestinal: Reports: Abdominal pain, Nausea, Vomiting. Denies: Diarrhea, Constipation, Melena, Hematochezia Genitourinary: Denies: Dysuria, Hematuria, Frequency Musculoskeletal: Denies: Back pain, Extremity Pain Skin: Denies: Rash, Wounds Neurological: Denies: Headache, Weakness, Numbness Physical Exam Vital Signs/Narrative: Vital Signs Temp Pulse Resp BP Pulse Ox 01/22/20 10:17 72 14 212/64 H 96 01/22/20 09:59 97.4 F L 73 16 143/59 H 97 Inital Vital Signs reviewed: Yes General: Well nourished, Well developed, No Acute Distress Head: Normocephalic, Atraumatic Eyes: Perrl, EOMI. Negative for: Pale conjunctiva ENT: Moist mucous membranes, No rhinorrhea Neck: Supple, Nontender Cardiovascular: Regular rate, Regular rhythm, No murmurs Respiratory: No distress, CTA bilaterally, Chest nontender Abdomen: Soft, Nontender, Nondistended, No masses, Hyperactive bowel sounds. Negative for: Guarding, Rebound tenderness Back: Nontender, Normal Inspection. Negative for: CVA tenderness Extremities: Nontender, No edema Skin: Normal color, No rash Neurological: Alert, Oriented x3, Cranial nerves II-XII grossly intact, Normal Strength, Normal Sensation Psychological: Normal affect, Normal Mood Diagnostic/Tx/Re-eval Clinical Impression(s) from Imaging Studies Abdomen/Pelvis CT 01/22/20 10:40 IMPRESSION: Acute sigmoid colitis. Prominent multilevel spondylosis with multilevel stenosis. Prominent scoliosis. Electronically Signed: Ryder Martinez MD at 13:36 EDT Tel , Service support , Laboratory Data 01/22/20 01/22/20 01/22/20 11:04 11:04 11:47 WBC 11.2 H RBC 3.56 L Hgb 10.5 L Hct 33.9 L MCV 95.2 MCH 29.5 MCHC 31.0 L RDW Std Deviation 45.5 H RDW Coeff of [place] 13.3 Plt Count 290 MPV 9.5 Immature Gran % (Auto) 0.500 Neut % (Auto) 82.5 H Lymph % (Auto) 5.2 L [place] % (Auto) 9.8 Eos % (Auto) 1.6 Baso % (Auto) 0.4 Absolute Neuts (auto) 9.2 H Absolute Lymphs (auto) 0.58 L Nucleated RBC % 0 Differential Comment SCANNED Sodium 136 Potassium 3.3 L Chloride 98 Carbon Dioxide 33.0 H Anion Gap 5 BUN 24 H Creatinine 1.02 Estim Creat Clear Calc 33.75 Est GFR (MDRD) Af Amer 67 Est GFR (MDRD) Non-Af 56 L BUN/Creatinine Ratio 23.5 H Glucose 104 Calcium 8.0 L Total Bilirubin 0.40 AST 20 ALT 19 Alkaline Phosphatase 64 Troponin I < 0.015 Total Protein 6.2 L Albumin 2.9 L Globulin 3.3 Albumin/Globulin Ratio 0.9 Lipase 33 L Urine Color Yellow Urine Clarity Sl. Cloudy Urine pH 6.0 Ur Specific [place] 1.010 Urine Protein 15 H Urine Glucose (UA) Normal Urine Ketones 15 H Urine Occult Blood 150 H Urine Nitrite Negative Urine Bilirubin Negative Urine Urobilinogen Normal Ur Leukocyte Esterase 100 H Urine RBC 0-5 SEEN Urine WBC 0-5 SEEN Ur Squamous Epith Cells 0-5 SEEN Urine Bacteria RARE Urine Mucus 0 SEEN - Rhythm Strip Rhythm Strip: Sinus Rhythm Rate: 70 Ectopy: None - EKG Initial EKG Interpretation: Sinus Rhythm, - - Rate of 70 Normal axis Normal intervals Normal ST segments LVH present Compared to prior EKG on 11/08/2018 patient has no significant changes - Medical Decision Making Patient is evaluated for 1 week of abdominal pain. She has associated intermittent episodes of nausea and vomiting no significant diarrhea. She is having a lot of gas and gas pains. Her abdominal exam is relatively benign but she does have hyperactive bowel signs. She is hemodynamically stable in the emergency room. Work-up is pertinent for a very mild leukocytosis of 11.2. She does have anemia of 10.5 but this is actually slightly improved from her baseline. Her platelets are normal. She does not have any RICCARDO or significant electrolyte abnormalities. No transaminitis. Given her age and nonspecific symptoms I did check an EKG and troponin which are normal. Urinalysis shows some signs of dehydration with 15 ketones, 150 of occult blood with 0-5 white blood cells and [address] of the abdomen pelvis shows colitis without diverticulitis. This is consistent with her presentation. She does not have pain out of proportion I do not suspect ischemic colitis even though she does have abdominal vascular disease seen on CT with a lot of calcifications. She not having any melena or GI bleeding. Patient does have a history of vascular disease with carotid endarterectomy x3. Patient is informed of her CT findings. She will be started on Augmentin empirically. She does have significant improvement of her symptoms with Zofran and fluids in the emergency room. She be discharged home with this. In addition patient is hypertensive in the emergency room and is given her home blood pressure medications as I suspect her hypertension is secondary to her noncompliance with her medications. She is given first dose of Augmentin as well in the emergency room. Patient is counseled on signs and symptoms requiring return to the emergency room. Patient verbalizes agreement and understand this plan. Patient discharged home in stable and improved condition. ED Disposition - Plan for ED Patient: Disposition: Home or Assisted Living Diagnosis: Colitis, Benign essential hypertension Instructions: ED Abdominal Pain Unkn Cause Fem Prescriptions: Amox/Clavulanate Tablet [Augmentin Tablet] 875 mg PO Q12H #20 tab Transmission Status: Received by [email or web address] #[id number] Ondansetron [Zofran Odt] 4 mg PO Q8H PRN PRN #10 tab PRN Reason: Nausea Transmission Status: Received by [email or web address] #[id number] Referrals: Nicolas Villegas MD [Primary Care Provider] - Additional Instructions: Your CT is consistent with colitis. Please stick to a liquid/land diet for the next day and advance as tolerated. You can take Gas-X as needed for gas pains. Please follow-up with your primary care doctor for repeat evaluation later this week. Return the emergency room with any worsening symptoms.
[2020-01-22] MEDS: Ondansetron 4 MG/2 ML Vial IV (11:07)
[2020-01-22] MEDS: 0.9% Normal Saline 1,000 ML 1000 ML IV (11:07)
[2020-01-22 11:15] LABS: Absolute Lymphocyte Count 0.58 X10^3/uL (0.83-4.51); Absolute Neutrophil Count 9.2 X10^3/uL (2.0-7.7); Basophil# 0.04 X10^3/uL; Basophil% 0.4 % (0-1); Eosinophil# 0.18 X10^3/uL; Eosinophils% 1.6 % (0-5); Hematocrit 33.9 % (37-47); Hemoglobin 10.5 g/dL (12.0-15.0); Lymphocyte # 0.58 X10^3/ul (4.0); Lymphocyte % 5.2 % (19-41); Mean Corpuscular Hgb 29.5 pg (27.0-32.0); Mean Corpuscular Volume 95.2 fL (81-99); Mean Platelet Vol. 9.5 fl (6.2-12.0); Monocyte# 1.09 X10^3/uL; Monocyte% 9.8 % (0-10); NRBC Flagged by Analyzer 0 % (0-5); Neutrophil % 82.5 % (47-70); POSITIVE DIFFERENTIAL YES; Platelet Count 290 K/mm3 (150-450); RBC Distribution Width CV 13.3 % (11.6-14.6); RBC Distribution Width SD 45.5 fl (35.1-43.9); Red Blood Count 3.56 M/mm3 (4.2-5.4); White Blood Count 11.2 K/mm3 (4.4-11.0)
[2020-01-22 11:16] LABS: Differential Indicated SCAN CRITERIA MET
[2020-01-22 11:33] LABS: ALB/GLOB Ratio 0.9 RATIO (0.9-2.4); AST(SGOT) 20 U/L (15-37); Alanine Aminotransfer ALT/SGPT 19 U/L (13-56); Albumin, Serum 2.9 g/dL (3.2-5.0); Alkaline Phosphatase 64 U/L (45-117); Anion Gap 5 (5-15); BUN 24 mg/dL (7-18); BUN/Creat Ratio 23.5 RATIO (10-20); Chloride 98 mmol/L (98-107); Creatinine, Serum 1.02 mg/dL (0.55-1.02); EST Glomerular Filtration Rate 56 mL/min (>60); Est Glom Filt Rate - Afr Amer 67 mL/min (>60); Estimated Creatinine Clearance 33.75 ml/min; Globulin 3.3 g/dL (2.2-4.2); Glucose 104 mg/dL (74-106); Lipase 33 U/L (73-393); Potassium 3.3 mmol/L (3.5-5.1); Protein, Total 6.2 g/dL (6.4-8.2); Sodium Level 136 mmol/L (136-145)
[2020-01-22 11:34] LABS: Differential Comment SCANNED
[2020-01-22 11:52] LABS: Mucous, Urine 0 SEEN /hpf (<or=2+)
[2020-01-22 11:54] LABS: Color, Urine Yellow (Yellow); Glucose, Dipstick Normal (Normal); Ketone-Dipstick 15 mg/dl (Negative); Leukocyte Esterase-Dipstick 100 /ul (Negative); Nitrite-Dipstick Negative (Negative); Occult Blood-Urine 150 /ul (Negative); Protein-Dipstick 15 mg/dl (Negative); Urine Bilirubin Dipstick Negative (Negative); Urine Clarity Sl. Cloudy (Clear); Urine Urobilinogen Normal (Normal)
[2020-01-22 12:00] VITALS: BP 190/68; PULSE 73; RESP 20; O2SAT 94
[2020-01-22 12:01] LABS: Bacteria RARE /hpf (None Seen); Red Blood Cells-Urine 0-5 SEEN /hpf (0-5); Squamous Epithelial Cells - UA 0-5 SEEN /hpf (5-10); White Blood Cells 0-5 SEEN /hpf (0-5)
[2020-01-22 14:11] VITALS: BP 156/54
[2020-01-22] MEDS: Losartan Potassium 100 MG Tablet PO (14:12)
[2020-01-22] MEDS: Chlorthalidone 50 MG Tablet 12.5 MG PO (14:12)
[2020-01-22] MEDS: amLODIPine 2.5 MG Tablet PO (14:13)
[2020-01-22 14:40] VITALS: RESP 18
== END 2020-01-22 15:05 | disposition home or self-care (01) ==
PROVIDERS: Emergency Provider Emergency Medicine; PCP Family Medicine
DX: K52.9 Noninfective gastroenteritis and colitis, unspecified (principal); K21.9 Gastro-esophageal reflux disease without esophagitis; E78.5 Hyperlipidemia, unspecified; I12.9 Hypertensive chronic kidney disease with stage 1 through stage 4 chronic kidney disease, or unspecified chronic kidney disease; N18.2 Chronic kidney disease, stage 2 (mild); Z91.14 Patient's other noncompliance with medication regimen; Z79.51 Long term (current) use of inhaled steroids; Z79.899 Other long term (current) drug therapy
CPT/HCPCS: 74177; 80053; 81001; 83690; 84484; 85025; 87086; 87088; 93005; 96361; 96374; 99283; J7030; Q9967; A4216; J2405

== ENCOUNTER 2020-02-13 18:58 | Inpatient (IN) | payer MEDICARE, OTHER, SELFPAY ==
[2020-02-13] VITALS (12 sets, daily range): BP systolic 108–227; BP diastolic 39–65; PULSE 67–78; RESP 13–18; TEMP 36.4–36.8; O2SAT 94–100; BMI 35.9; BMI 36.2
--- NOTE | 2020-02-13 19:17 | CT_ITS ---
STUDY: CT ABDOMEN AND PELVIS WITH CONTRAST REASON FOR EXAM: Female, 79 years old. ABDOMEN PAIN,NAUSEA AND VOMITING-DX WITH COLITIS 3 WEEKS AGO AND TOOK ANTIBIOTICS,ELEVATED WBC TONIGHT -- HX:COD,HTN,HLD,CRF STAGE 2 -- SURGERY:CHOLECYSTECTOMY,HYSTERECTOMY,LT HIP RADIATION DOSAGE (If Supplied By Facility): CTDIvol = ( 21.76 ) mGy, DLP = ( 1136.98 ) mGycm TECHNIQUE: Transaxial images were obtained from the dome of the diaphragm to the symphysis pubis without oral contrast. Oral and amp; IV Gastrografin and amp; 100mL Isovue-300 was administered. Sagittal and coronal images were reconstructed. Individualized dose optimization techniques were used for this CT. COMPARISON: Previous recent study of 01/22/2020 FINDINGS: The visualized lung bases are unremarkable. The heart size is normal. Coronary arterial and valvular calcifications are present. Normal liver. There are surgical clips in the gallbladder fossa consistent with a prior cholecystectomy. Normal spleen. Normal pancreas. Normal bilateral adrenal glands. There are several small right renal cysts measuring up to 1.6 cm. There is left renal atrophy. There is a 4.5 cm left renal cyst. There is a small hiatal hernia. Normal small intestine. There is mild diffuse colonic distention with fluid from cecum to proximal sigmoid. There is pericecal fatty stranding. There is non-visualization of the appendix. There are calcified plaques of the abdominal aorta and common iliac arteries. Normal inferior vena cava. Normal retroperitoneum. Normal urinary bladder. There is absence of the uterus consistent with a prior hysterectomy. Normal abdominal wall. There are diffuse degenerative changes of the visualized thoracolumbar spine. There is a grade 1 anterolisthesis of L4 relative to L5. There is a moderate thoracolumbar levoscoliosis. Status post total left hip replacement changes are noted. CT/Abdomen/Pelvis WITH Contrast IMPRESSION: 1. Mild diffuse colonic distention with liquid stool from the cecum to proximal sigmoid. There is pericecal fatty stranding. Findings are compatible with colitis. 2. Bilateral renal cysts. Left renal atrophy. 3. Status post cholecystectomy and hysterectomy. 4. Small hiatal hernia. 5. Diffuse degenerative changes of the visualized thoracolumbar spine. Grade 1 anterolisthesis of L4 relative to L5. Moderate thoracolumbar levoscoliosis. Status post total left hip replacement. 6. There is no evidence of free intra-abdominal or intrapelvic air or fluid. Electronically Signed: Reinier Ruffin MD at 21:41 EDT , Service support ,
--- NOTE | 2020-02-13 19:17 | EKG12_ITS ---
Test Reason : ABD PAIN Blood Pressure : / mmHG Vent. Rate : 077 BPM Atrial Rate : 077 BPM P-R Int : 154 ms QRS Dur : 082 ms QT Int : 426 ms P-R-T Axes : 064 007 072 degrees QTc Int : 482 ms Sinus rhythm with Premature atrial complexes Left ventricular hypertrophy Nonspecificc ST segment Abnormality Abnormal ECG Confirmed by ANA FLOR, MAKENNA ([id number]), newspaper editor managing RC OSEI ([id number]) on 02/15/2020 9:37:14 AM Referred By: Makenna Ulrich Confirmed By:MAKENNA PEREZ MD
--- NOTE | 2020-02-13 19:18 | ED.VIS.GEN ---
History of Present Illness Chief Complaint: Abd Pain Informant: Patient Onset: Weeks Context: Gradual Onset Timing: Waxes and wanes Current Severity: Mild Maximum Severity: Moderate Narrative: Patient returns to the ED secondary to continued abdominal pain. She was seen in the ER on January 21 with a one-week history of abdominal pain at that time. Work-up revealed sigmoid colitis and she was treated with a 10-day course of Augmentin. Patient presents back tonight stating that she has had no improvement after completing the antibiotic. She reports vomiting over the past 2 days and having very little p.o. intake over the past 3 days. She denies fever or chills. She is still passing gas. She states she think she is only had 1 or 2 bowel movements in the last several weeks. She attributes this to not eating much. - Past Medical History (1) Pulmonary hypertension Status: Chronic Comment: RVSP 55 (2) Benign essential hypertension Status: Chronic (3) Chronic renal insufficiency, stage II (mild) Status: Chronic (4) HLD (hyperlipidemia) Status: Chronic (5) AILYN (obstructive sleep apnea) Status: Chronic Comment: AHI 115 and titrated to nasal CPAP 14 cm of water (6) Renal artery stenosis Status: Chronic (7) COPD (chronic obstructive pulmonary disease) Status: Suspected Past Medical History - Allergies and Home Meds Allergies/Adverse Reactions: Allergies gabapentin Allergy (Verified 02/13/20 18:59) Unknown nortriptyline Allergy (Verified 02/13/20 18:59) Unknown rofecoxib [From Vioxx] Allergy (Verified 02/13/20 18:59) Unknown tacrolimus Allergy (Verified 02/13/20 18:59) Unknown morphine Adverse Reaction (Verified 02/13/20 18:59) Nausea Primary Care Physician: Nicolas Villegas MD [Primary Care Provider] - Prior records reviewed: Yes Surgical History: appendectomy, cholecystectomy, hysterectomy, total hip arthroplasty, - - Exploratory laparotomy Smoking Status: Former smoker - Family History Paternal Family History: Family History (Last Updated 01/02/20 @ 11:07 by Mitchell Rosenthal NP, INCLUSION INTERN-C) Mother Cancer Father Emphysema of lung Aunt Cancer Grandfather Vascular disease Grandmother Diabetes Brother Cancer Family History: Reports: No pertinent history Maternal Family History: Family History (Last Updated 01/02/20 @ 11:07 by Mitchell H Roof INCLUSION INTERN, INCLUSION INTERN-C) Mother Cancer Father Emphysema of lung Aunt Cancer Grandfather Vascular disease Grandmother Diabetes Brother Cancer Family History: Reports: No pertinent history Review of Systems General: Denies: Chills, Fever Eyes: Denies: Visual changes - bilaterally ENT: Denies: Bilateral ear pain Cardiovascular: Denies: Chest pain Respiratory: Denies: Dyspnea, Cough Gastrointestinal: Reports: Abdominal pain, Nausea, Vomiting Genitourinary: Denies: Dysuria Musculoskeletal: Denies: Swelling, Extremity Pain Skin: Denies: Rash Neurological: Denies: Headache Hematologic: Denies: Easy bruising, Easy bleeding Allergy: Denies: Uticaria Physical Exam Vital Signs/Narrative: Vital Signs Temp Pulse Resp BP Pulse Ox 02/13/20 19:04 97.7 F L 71 18 108/52 L 95 02/13/20 18:59 97.7 F L 71 18 108/52 L 95 Inital Vital Signs reviewed: Yes General: Well nourished, Well developed Head: Normocephalic ENT: Moist mucous membranes Neck: Supple Cardiovascular: Regular rate, Regular rhythm Respiratory: No distress, CTA bilaterally Abdomen: Soft, Normal bowel sounds, Tender - Mid right-sided abdominal tenderness.. Negative for: Guarding, Rebound tenderness Extremities: Nontender Skin: Normal color Neurological: Alert, Oriented x3 Psychological: Normal affect Diagnostic/Tx/Re-eval Impressions Abdomen/Pelvis CT 02/13/20 19:17 IMPRESSION: 1. Mild diffuse colonic distention with liquid stool from the cecum to proximal sigmoid. There is pericecal fatty stranding. Findings are compatible with colitis. 2. Bilateral renal cysts. Left renal atrophy. 3. Status post cholecystectomy and hysterectomy. 4. Small hiatal hernia. 5. Diffuse degenerative changes of the visualized thoracolumbar spine. Grade 1 anterolisthesis of L4 relative to L5. Moderate thoracolumbar levoscoliosis. Status post total left hip replacement. 6. There is no evidence of free intra-abdominal or intrapelvic air or fluid. Electronically Signed: Reinier Ruffin MD at 21:41 EDT , Service support , 02/13/20 19:17 Abdomen/Pelvis WITH Contrast [CT] Stat Laboratory Results 02/13/20 02/13/20 02/13/20 19:30 19:30 19:30 WBC 13.6 H RBC 3.81 L Hgb 11.3 L Hct 35.9 L MCV 94.2 MCH 29.7 MCHC 31.5 L RDW Std Deviation 45.8 H RDW Coeff of [place] 13.4 Plt Count 310 MPV 10.1 Immature Gran % (Auto) 1.000 H Neut % (Auto) 86.9 H Lymph % (Auto) 3.9 L [place] % (Auto) 7.5 Eos % (Auto) 0.5 Baso % (Auto) 0.2 Absolute Neuts (auto) 11.8 H Absolute Lymphs (auto) 0.53 L Nucleated RBC % 0 Differential Comment SCANNED Sodium 135 L Potassium 3.3 L Chloride 98 Carbon Dioxide 27.0 Anion Gap 10 BUN 29 H Creatinine 1.49 H Estim Creat Clear Calc 23.10 Est GFR (MDRD) Af Amer 43 L Est GFR (MDRD) Non-Af 36 L BUN/Creatinine Ratio 19.5 Glucose 160 H Lactic Acid 2.7 H* Calcium 8.5 Total Bilirubin 0.50 Direct Bilirubin 0.18 AST 18 ALT 15 Alkaline Phosphatase 64 Total Protein 6.3 L Albumin 3.0 L Globulin 3.3 Lipase 37 L Urine Color Urine Clarity Urine pH Ur Specific [place] Urine Protein Urine Glucose (UA) Urine Ketones Urine Occult Blood Urine Nitrite Urine Bilirubin Urine Urobilinogen Ur Leukocyte Esterase Urine RBC Urine WBC Ur Squamous Epith Cells Urine Bacteria Urine Mucus 02/13/20 20:10 WBC RBC Hgb Hct MCV MCH MCHC RDW Std Deviation RDW Coeff of [place] Plt Count MPV Immature Gran % (Auto) Neut % (Auto) Lymph % (Auto) [place] % (Auto) Eos % (Auto) Baso % (Auto) Absolute Neuts (auto) Absolute Lymphs (auto) Nucleated RBC % Differential Comment Sodium Potassium Chloride Carbon Dioxide Anion Gap BUN Creatinine Estim Creat Clear Calc Est GFR (MDRD) Af Amer Est GFR (MDRD) Non-Af BUN/Creatinine Ratio Glucose Lactic Acid Calcium Total Bilirubin Direct Bilirubin AST ALT Alkaline Phosphatase Total Protein Albumin Globulin Lipase Urine Color Yellow Urine Clarity Sl. Cloudy Urine pH 6.0 Ur Specific [place] 1.020 Urine Protein 100 H Urine Glucose (UA) Normal Urine Ketones 150 H Urine Occult Blood 10 H Urine Nitrite Negative Urine Bilirubin 3 H Urine Urobilinogen 1 H Ur Leukocyte Esterase 500 H Urine RBC 0 SEEN Urine WBC 5-10 SEEN Ur Squamous Epith Cells 5-10 SEEN Urine Bacteria 1+ Urine Mucus 0 SEEN - EKG Initial EKG Interpretation: Sinus Rhythm - Sinus at 77 with PACs. No acute ischemia. - Medical Decision Making Patient was given Zofran and IV fluids. Upon completion of her lactic acid IV fluid bolus was ordered. Test results are discussed with the patient. Her white count has increased compared to her last visit. Her renal function has worsened. Where she had sigmoid colitis previously she now has colitis throughout the entire colon. She is given a dose of Flagyl and Cipro here in the ER. I will discuss with the hospitalist for admission. ED Disposition - Plan for ED Patient: Disposition: Acute Care Hospital [facility] Diagnosis: Severe sepsis, Colitis, Cystitis Referrals: Nicolas Villegas MD [Primary Care Provider] -
[2020-02-13] MEDS: Ondansetron 4 MG/2 ML Vial IV ×3 (19:34→23:21)
[2020-02-13] MEDS: 0.9% Normal Saline 1,000 ML 150 ML IV (19:48)
[2020-02-13 19:54] LABS: Absolute Lymphocyte Count 0.53 X10^3/uL (0.83-4.51); Absolute Neutrophil Count 11.8 X10^3/uL (2.0-7.7); Basophil# 0.03 X10^3/uL; Basophil% 0.2 % (0-1); Eosinophil# 0.07 X10^3/uL; Eosinophils% 0.5 % (0-5); Hematocrit 35.9 % (37-47); Hemoglobin 11.3 g/dL (12.0-15.0); Lymphocyte # 0.53 X10^3/ul (4.0); Lymphocyte % 3.9 % (19-41); Mean Corp Hgb Conc 31.5 g/dL (32-36); Mean Corpuscular Hgb 29.7 pg (27.0-32.0); Mean Corpuscular Volume 94.2 fL (81-99); Mean Platelet Vol. 10.1 fl (6.2-12.0); Monocyte# 1.01 X10^3/uL; Monocyte% 7.5 % (0-10); NRBC Flagged by Analyzer 0 % (0-5); Neutrophil # 11.78 X10^3/uL (2.7-7.7); Neutrophil % 86.9 % (47-70); POSITIVE DIFFERENTIAL YES; Platelet Count 310 K/mm3 (150-450); RBC Distribution Width CV 13.4 % (11.6-14.6); RBC Distribution Width SD 45.8 fl (35.1-43.9); Red Blood Count 3.81 M/mm3 (4.2-5.4); White Blood Count 13.6 K/mm3 (4.4-11.0)
[2020-02-13 20:08] LABS: AST(SGOT) 18 U/L (15-37); Alanine Aminotransfer ALT/SGPT 15 U/L (13-56); Alkaline Phosphatase 64 U/L (45-117); Anion Gap 10 (5-15); BUN 29 mg/dL (7-18); BUN/Creat Ratio 19.5 RATIO (10-20); Bilirubin, Direct 0.18 mg/dL (0.00-0.30); Calcium,Total 8.5 mg/dL (8.5-10.1); Chloride 98 mmol/L (98-107); Creatinine, Serum 1.49 mg/dL (0.55-1.02); EST Glomerular Filtration Rate 36 mL/min (>60); Est Glom Filt Rate - Afr Amer 43 mL/min (>60); Globulin 3.3 g/dL (2.2-4.2); Glucose 160 mg/dL (74-106); Lipase 37 U/L (73-393); Potassium 3.3 mmol/L (3.5-5.1); Protein, Total 6.3 g/dL (6.4-8.2); Sodium Level 135 mmol/L (136-145)
[2020-02-13 20:13] LABS: Differential Indicated SCAN CRITERIA MET
[2020-02-13 20:14] LABS: Mucous, Urine 0 SEEN /hpf (<or=2+); Red Blood Cells-Urine 0 SEEN /hpf (0-5)
[2020-02-13 20:17] LABS: Color, Urine Yellow (Yellow); Glucose, Dipstick Normal (Normal); Leukocyte Esterase-Dipstick 500 /ul (Negative); Nitrite-Dipstick Negative (Negative); Occult Blood-Urine 10 /ul (Negative); Protein-Dipstick 100 mg/dl (Negative); Urine Clarity Sl. Cloudy (Clear); Urine Urobilinogen 1 mg/dl (Normal)
[2020-02-13 20:23] LABS: Urine Bilirubin Dipstick 3 mg/dL (Negative)
[2020-02-13 20:25] LABS: Ketone-Dipstick 150 mg/dl (Negative)
[2020-02-13 20:26] LABS: Bacteria 1+ /hpf (None Seen); Squamous Epithelial Cells - UA 5-10 SEEN /hpf (5-10); White Blood Cells 5-10 SEEN /hpf (0-5)
[2020-02-13 20:38] LABS: Differential Comment SCANNED
[2020-02-13 20:44] LABS: Lactic Acid 2.7 mmol/L (0.4-1.9)
[2020-02-13] MEDS: 0.9% Normal Saline 1,000 ML 999 ML IV ×2 (21:31→22:29)
--- NOTE | 2020-02-13 22:08 | HP.PCM_ITS ---
Problem List (1) Polymyalgia rheumatica Status: Chronic (2) Severe sepsis Status: Acute (3) Colitis Status: Acute (4) Cystitis Status: Acute (5) BMI 36.0-36.9,adult Status: Chronic (6) COPD (chronic obstructive pulmonary disease) Status: Suspected Qualifiers: COPD type: unspecified COPD Qualified Code(s): J44.9 - Chronic obstructive pulmonary disease, unspecified (7) AILYN (obstructive sleep apnea) Status: Chronic Comment: AHI 115 and titrated to nasal CPAP 14 cm of water (8) Atherosclerotic heart disease of [place] coronary artery without angina pectoris Status: Chronic Qualifiers: [place] vs. transplanted heart: [place] heart Qualified Code(s): I25.10 - Atherosclerotic heart disease of [place] coronary artery without angina pectoris (9) HLD (hyperlipidemia) Status: Chronic Qualifiers: Hyperlipidemia type: unspecified Qualified Code(s): E78.5 - Hyperlipidemia, unspecified (10) Benign essential hypertension Status: Chronic History of Present Illness Date of Admission: 02/13/20 Chief Complaint: abdominal pain The patient is a 79 year old female patient who presented to the emergency room on January 21 with abdominal pain and was subsequently treated for colitis with Augmentin who now returns to the emergency room with ongoing abdominal pain. In the interim. Of her treatment she is only had 2 liquid bowel movements and has had poor appetite with nausea. Pain is increased today and she has become increasingly nauseous as well. Patient does have a history of chronic kidney disease, COPD, polymyalgia rheumatica for which she takes steroids chronically and obesity. The patient denies chest pain or shortness of breath at present time. CBC shows an elevated white blood cell count of 13,000 with a left shift along with an elevated lactic acid and positive CT scan for acute colitis. She will be admitted overnight to the intensive care unit for treatment of sepsis secondary to her colitis and plan for stepdown in the morning. 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, stage II (mild) (Chronic) Hyperglycemia, unspecified (Chronic) Carotid stenosis (Chronic) Renal artery stenosis (Chronic) HLD (hyperlipidemia) (Chronic) Benign essential hypertension (Chronic) Medical History: Medical History (Last Reviewed 01/02/20 @ 11:03 by Mitchell Rosenthal LAMINATING MACHINE OPERATOR HELPER, LAMINATING MACHINE OPERATOR HELPER-C) Atherosclerotic heart disease of [place] coronary artery without angina pectoris (Chronic) I25.10 Acute respiratory failure with hypoxia (Resolved) J96.01 Right lower lobe pneumonia (Acute) J18.1 Sinus tachycardia by electrocardiogram (Acute) R00.0 Chronic renal insufficiency, stage II (mild) (Chronic) N18.2 Hyperglycemia, unspecified (Chronic) R73.9 Carotid stenosis (Chronic) I65.29 Renal artery stenosis (Chronic) I70.1 HLD (hyperlipidemia) (Chronic) E78.5 Benign essential hypertension (Chronic) I10 Acute kidney insufficiency N28.9 NSTEMI (non-ST elevated myocardial infarction) I21.4 Barretts esophagus K22.70 Cerebrovascular disease I67.9 Former smoker, stopped smoking many years ago Z87.891 History of bleeding peptic ulcer Z87.11 Osteoarthritis Dehydration (Resolved) E86.0 Pneumonia J18.9 Severe sepsis A41.9, R65.20 Allergies gabapentin Allergy (Verified 02/13/20 18:59) Unknown nortriptyline Allergy (Verified 02/13/20 18:59) Unknown rofecoxib [From Vioxx] Allergy (Verified 02/13/20 18:59) Unknown tacrolimus Allergy (Verified 02/13/20 18:59) Unknown morphine Adverse Reaction (Verified 02/13/20 18:59) Nausea Home Medications: Ambulatory Orders Medication Instructions Recorded Pantoprazole Sodium [Protonix] 40 mg PO DAILY 12/15/14 Acetaminophen [Tylenol Arthritis] 650 mg PO Q4H PRN PRN 11/04/18 Carvedilol 25 mg PO BID 11/04/18 Chlorthalidone 12.5 mg PO DAILY 11/04/18 Cholecalciferol (VIT D3) [Vitamin 2,000 unit PO DAILY 11/04/18 D3] Coenzyme [id number] [Co 1 cap PO DAILY 11/04/18 Q-10 with l-Carnitine Sftgl] Leflunomide 20 mg PO DAILY 11/04/18 Pravastatin Sodium 20 mg PO QHS 11/04/18 Prednisone 5 mg PO DAILY 11/04/18 Albuterol IH (ProAir) [Proair Hfa] 1 - 2 puff INHALATION Q6H PRN PRN 11/09/18 #1 inhaler Aspirin [Aspirin, Baby] 81 mg PO DAILY@0800 tab.chew 11/09/18 amlodipine 2.5 mg tablet 2.5 mg PO DAILY 07/04/19 clobetasol 0.05 % scalp solution 1 applic TOPICAL DAILY PRN 07/04/19 clopidogrel 75 mg tablet 75 mg PO DAILY 07/04/19 losartan 100 mg tablet 100 mg PO DAILY 07/04/19 potassium chloride 10 mEq 20 meq PO BID tab 07/04/19 tablet,extended release Amox/Clavulanate Tablet [Augmentin 875 mg PO Q12H #20 tab 01/22/20 Tablet] Ondansetron [Zofran Odt] 4 mg PO Q8H PRN PRN #10 tab 01/22/20 Surgical History: Surgical History (Last Updated 01/02/20 @ 11:04 by Mitchell Rosenthal NP, LAMINATING MACHINE OPERATOR HELPER-C) H/O carotid endarterectomy Z98.890 History of cholecystectomy Z90.49 History of hysterectomy Z90.710 History of left hip replacement Z96.642 History of total right knee replacement Z96.651 Surgical History: appendectomy, cholecystectomy, hysterectomy, total hip arthroplasty, - - Exploratory laparotomy Psychiatric History: No pertinent psych hx DIECAST MACHINE OPERATOR History: No pertinent DIECAST MACHINE OPERATOR history Smoking Status: Former smoker - *Family History Paternal Family History: Family History (Last Updated 01/02/20 @ 11:07 by Mitchell Rosenthal NP, LAMINATING MACHINE OPERATOR HELPER-C) Mother Cancer Father Emphysema of lung Aunt Cancer Grandfather Vascular disease Grandmother Diabetes Brother Cancer History Items: No pertinent history Maternal Family History: Family History (Last Updated 01/02/20 @ 11:07 by Mitchell Rosenthal NP, LAMINATING MACHINE OPERATOR HELPER-C) Mother Cancer Father Emphysema of lung Aunt Cancer Grandfather Vascular disease Grandmother Diabetes Brother Cancer History Items: No pertinent history Review of Systems Constitutional: Reports: Anorexia, Weakness. Denies: Chills, Fever, Weight Change HEENT: Denies: Head Aches, Sinus Congestion, Sinus Drainage Cardiovascular: Denies: Chest Pain, Palpitations Respiratory: Denies: Cough, Shortness of breath at rest, Sputum production Gastrointestinal: Reports: Abdominal Pain, Nausea. Denies: Vomiting Genitourinary: Denies: Dysuria Musculoskeletal: Denies: Joint Pain, Joint Tenderness Skin: Denies: Rash, Wounds Neurological: Denies: Numbness, Tingling, Focal weakness Psychiatric: Denies: Anxiety, Depression, Homicidal Ideations, Suicidal Idea tions Hematologic/ Lymphatic: Denies: Easy Bruising, Easy Bleeding VTE Information - Inpt Only VTE Present on Admission: No VTE Mechan Device Prophylaxis: SCD's VTE Pharm Prophylaxis ordered?: No Patient Problems: Active and Suspected Problems (Last Reviewed 01/02/20 @ 11:03 by Mitchell Rosenthal LAMINATING MACHINE OPERATOR HELPER, LAMINATING MACHINE OPERATOR HELPER-C) Severe sepsis (Acute) Colitis (Acute) Cystitis (Acute) - Physical Exam Vitals/I&O's: Vital Signs Temp Pulse Resp BP Pulse Ox 98.2 F 75 16 164/50 H 95 02/13/20 21:42 02/13/20 21:42 02/13/20 21:42 02/13/20 21:42 02/13/20 21:42 Oxygen Delivery Method Room Air Weight: 190 lb Body Mass Index (BMI) 35.9 Intake and Output for Last 24 Hours 02/11/20 02/12/20 02/13/20 23:59 23:59 23:59 Intake Total 692.5 / 692.5 Balance 692.5 / 692.5 General: Alert, Oriented x3, Cooperative HEENT: Atraumatic, Normocephalic Neck: Supple, No JVD, Negative Carotid Bruits Lungs: Clear to auscultation, Normal air movement Cardiovascular: Regular rate, No murmurs Abdomen: Bowel Sounds Present, Distended, Obese, Tender Extremities: No edema Skin: No rashes Musculoskeletal: No Tenderness to Palpation of Joints or Extremities Neurological: Neuro grossly intact Psych/Mental Status: Normal Affect, Appropriate Laboratory Results 02/13/20 19:30: WBC 13.6 H, RBC 3.81 L, Hgb 11.3 L, Hct 35.9 L, MCV 94.2, MCH 29.7, MCHC 31.5 L, RDW Std Deviation 45.8 H, RDW Coeff of [place] 13.4, Plt Count 310, MPV 10.1, Immature Gran % (Auto) 1.000 H, Neut % (Auto) 86.9 H, Lymph % (Auto) 3.9 L, Sampson % (Auto) 7.5, Eos % (Auto) 0.5, Baso % (Auto) 0.2, Absolute Neuts (auto) 11.8 H, Absolute Lymphs (auto) 0.53 L, Nucleated RBC % 0, Differential Comment SCANNED 02/13/20 19:30: Sodium 135 L, Potassium 3.3 L, Chloride 98, Carbon Dioxide 27.0, Anion Gap 10, BUN 29 H, Creatinine 1.49 H, Estim Creat Clear Calc 23.10, Est GFR (MDRD) Af Amer 43 L, Est GFR (MDRD) Non-Af 36 L, BUN/Creatinine Ratio 19.5, Glucose 160 H, Calcium 8.5, Total Bilirubin 0.50, Direct Bilirubin 0.18, AST 18, ALT 15, Alkaline Phosphatase 64, Total Protein 6.3 L, Albumin 3.0 L, Globulin 3.3, Lipase 37 L 02/13/20 19:30: Lactic Acid 2.7 H* 02/13/20 20:10: Urine Color Yellow, Urine Clarity Sl. Cloudy, Urine pH 6.0, Ur Specific [place] 1.020, Urine Protein 100 H, Urine Glucose (UA) Normal, Urine Ketones 150 H, Urine Occult Blood 10 H, Urine Nitrite Negative, Urine Bilirubin 3 H, Urine Urobilinogen 1 H, Ur Leukocyte Esterase 500 H, Urine RBC 0 SEEN, Urine WBC 5-10 SEEN, Ur Squamous Epith Cells 5-10 SEEN, Urine Bacteria 1+, Urine Mucus 0 SEEN Current Medications Sodium Chloride () 1,000 mls @ 150 mls/hr IV .Q6H40M [facility] Last Infusion: 02/13/20 21:05 Dose: 0 mls/hr Documented by: Sodium Chloride () 1,000 mls @ 999 mls/hr IV .Q1H1M [facility] Stop: 02/13/20 22:50 Last Admin: 02/13/20 21:31 Dose: 999 mls/hr Documented by: Sodium Chloride () 500 mls @ 999 mls/hr IV .Q31M [facility] Stop: 02/13/20 23:20 Last Infusion: 02/13/20 21:40 Dose: Infused Documented by: Metronidazole (Flagyl) 500 mg in 100 mls @ 100 mls/hr IV X1 ONE Stop: 02/13/20 22:51 Ciprofloxacin (Cipro) 400 mg in 200 mls @ 200 mls/hr IV X1 ONE Stop: 02/13/20 22:52 Assessment/Plan All Active Problems (Last Reviewed 01/02/20 @ 11:03 by Mitchell Rosenthal LAMINATING MACHINE OPERATOR HELPER, LAMINATING MACHINE OPERATOR HELPER-C) Severe sepsis (Acute) Colitis (Acute) Cystitis (Acute) Acute respiratory failure with hypoxia (Resolved) Right lower lobe pneumonia (Acute) Sinus tachycardia by electrocardiogram (Acute) Dehydration (Resolved) Chronic Problems (Last Reviewed 01/02/20 @ 11:03 by Mitchell Rosenthal LAMINATING MACHINE OPERATOR HELPER, LAMINATING MACHINE OPERATOR HELPER-C) Polymyalgia rheumatica (Chronic) BMI 36.0-36.9,adult (Chronic) Pulmonary hypertension (Chronic) RVSP 55 AILYN (obstructive sleep apnea) (Chronic) AHI 115 and titrated to nasal CPAP 14 cm of water 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 Colitis/severe sepsis?Place patient intensive care unit, start Cipro and Flagyl IV, initiate sepsis protocol, patient will be n.p.o. and next physician will determine when to start liquid diet and advance as appropriate. Repeat CBC CMP and lactate in a.m. 2. Hyperlipidemia?hold statin medication while n.p.o. 3. Hypertension?hold medication monitor and treat as needed 4. DVT prophylaxis?SCDs due to renal insufficiency 5. Obstructive sleep apnea?recommend continue use of CPAP when sleeping 6. Polymyalgia rheumatica?hold steroids while n.p.o. may restart her low-dose p rednisone when able to tolerate p.o. Inpatient E&M: [id number] Init Hosp L3
[2020-02-13] MEDS: metroNIDAZOLE 500 MG/100 ML BAG 100 MG IV (22:22)
[2020-02-13] MEDS: HYDROmorphone 0.5 MG/0.5 ML SYRINGE IV (23:21)
[2020-02-13] MEDS: Potassium Chloride 10mEq/100mL 10 MEQ/100 ML IV.SOLN. 100 MEQ IV BOLUS (23:32)
[2020-02-13] MEDS: Ciprofloxacin 400 MG/200 ML BAG 200 MG IV (23:35)
[2020-02-13 23:37] LABS: Reflex Lactate? Y
--- NOTE | 2020-02-13 23:54 | NURSING ---
Noted pt has short periods of sleep apnea after Dilaudid given for c/o 9/10 abd pain; O2 sats drop down to 88%, 2L O2 applied via NC. Pt did state that uses a CPAP at home.
[2020-02-14] VITALS (17 sets, daily range): BP systolic 141–197; BP diastolic 44–90; PULSE 66–82; RESP 11–18; TEMP 35.9–36.7; O2SAT 94–100
[2020-02-14 00:55] LABS: Lactic Acid 0.6 mmol/L (0.4-1.9)
[2020-02-14] MEDS: Potassium Chloride 10mEq/100mL 10 MEQ/100 ML IV.SOLN. 100 MEQ IV BOLUS ×5 (01:10→12:40)
--- NOTE | 2020-02-14 01:38 | NURSING ---
Potassium replacement IV rate slowed down to 50ml/hr d/t pt c/o arm burning.
[2020-02-14] MEDS: 0.9% Saline Lock 10 ML Syringe IV ×4 (03:26→20:23)
[2020-02-14] MEDS: HYDROmorphone 0.5 MG/0.5 ML SYRINGE IV ×4 (03:27→20:22)
[2020-02-14 04:37] LABS: Absolute Lymphocyte Count 0.41 X10^3/uL (0.83-4.51); Absolute Neutrophil Count 10.4 X10^3/uL (2.0-7.7); Basophil# 0.03 X10^3/uL; Basophil% 0.3 % (0-1); Differential Indicated SCAN CRITERIA MET; Eosinophil# 0.05 X10^3/uL; Eosinophils% 0.4 % (0-5); Hematocrit 35.1 % (37-47); Hemoglobin 10.9 g/dL (12.0-15.0); Lymphocyte # 0.41 X10^3/ul (4.0); Lymphocyte % 3.5 % (19-41); Mean Corp Hgb Conc 31.1 g/dL (32-36); Mean Corpuscular Hgb 29.5 pg (27.0-32.0); Mean Corpuscular Volume 95.1 fL (81-99); Mean Platelet Vol. 10.5 fl (6.2-12.0); Monocyte# 0.97 X10^3/uL; Monocyte% 8.2 % (0-10); NRBC Flagged by Analyzer 0 % (0-5); Neutrophil # 10.35 X10^3/uL (2.7-7.7); POSITIVE DIFFERENTIAL YES; Platelet Count 221 K/mm3 (150-450); RBC Distribution Width CV 13.5 % (11.6-14.6); RBC Distribution Width SD 46.7 fl (35.1-43.9); Red Blood Count 3.69 M/mm3 (4.2-5.4); White Blood Count 11.9 K/mm3 (4.4-11.0)
[2020-02-14 04:39] LABS: ALB/GLOB Ratio 0.9 RATIO (0.9-2.4); AST(SGOT) 16 U/L (15-37); Alanine Aminotransfer ALT/SGPT 16 U/L (13-56); Albumin, Serum 2.6 g/dL (3.2-5.0); Alkaline Phosphatase 55 U/L (45-117); Anion Gap 7 (5-15); BUN 28 mg/dL (7-18); BUN/Creat Ratio 24.1 RATIO (10-20); Calcium,Total 7.1 mg/dL (8.5-10.1); Chloride 101 mmol/L (98-107); Creatinine, Serum 1.16 mg/dL (0.55-1.02); EST Glomerular Filtration Rate 48 mL/min (>60); Est Glom Filt Rate - Afr Amer 58 mL/min (>60); Estimated Creatinine Clearance 29.67 ml/min; Globulin 2.8 g/dL (2.2-4.2); Glucose 105 mg/dL (74-106); Potassium 3.3 mmol/L (3.5-5.1); Protein, Total 5.4 g/dL (6.4-8.2); Sodium Level 135 mmol/L (136-145)
[2020-02-14 04:55] LABS: Differential Comment SCANNED
--- NOTE | 2020-02-14 05:51 | NURSING ---
Explained SCDs to pt, pt refusing at this time; states I just want to get some rest.
[2020-02-14] MEDS: metroNIDAZOLE 500 MG/100 ML BAG 100 MG IV ×3 (06:16→22:13)
--- NOTE | 2020-02-14 06:16 | CON.PCM_ITS ---
Reason for Consult Date of Consultation: 02/14/20 Reason for Consultation: Severe sepsis History of Present Illness: The patient is a 79-year-old female, with a history as outlined below, who presented to the emergency department on February 12 with complaints of abdominal pain. The patient was apparently diagnosed with colitis several weeks ago and recently treated with antimicrobials on an outpatient basis. She has had associated nausea and vomiting, but denies the presence of diarrhea. She does report that her p.o. intake has been somewhat limited as well over the last week. She denies any hematuria, dysuria or urinary frequency. On presentation to the emergency department, the patient was noted to be afebrile and hemodynamically stable. She was maintaining appropriate oxygen saturations on room air. Laboratory evaluation revealed an elevated white blood cell count to 13,000. Chemistry profile was notable for a sodium of 135, potassium of 3.3 and creatinine of 1.49. Lactate was elevated to 2.7. Urine analysis was negative for nitrates, positive for leukocyte esterase and 1+ urine bacteria. The patient received supplemental IV fluids and was started on antimicrobial therapy. She was then admitted to the medical intensive care unit for further management. Overnight, the patient has remained hemodynamically stable. Her pain is under adequate control with the present time. Past Medical History Past Medical History (Chronic Problems): Chronic Problems (Last Reviewed 02/14/20 @ 12:[address] Michael Conner MD) Polymyalgia rheumatica (Chronic) BMI 36.0-36.9,adult (Chronic) Pulmonary hypertension (Chronic) RVSP 55 AILYN (obstructive sleep apnea) (Chronic) AHI 115 and titrated to nasal CPAP 14 cm of water Atherosclerotic heart disease of [place] coronary artery without angina pectoris (Chronic) Chronic renal insufficiency, stage II (mild) (Chronic) Hyperglycemia, unspecified (Chronic) Carotid stenosis (Chronic) Renal artery stenosis (Chronic) HLD (hyperlipidemia) (Chronic) Benign essential hypertension (Chronic) Medical History: Medical History (Last Reviewed 02/14/20 @ 12:[address] Michael Conner MD) Atherosclerotic heart disease of [place] coronary artery without angina pectoris (Chronic) I25.10 Acute respiratory failure with hypoxia (Resolved) J96.01 Right lower lobe pneumonia (Acute) J18.1 Sinus tachycardia by electrocardiogram (Acute) R00.0 Chronic renal insufficiency, stage II (mild) (Chronic) N18.2 Hyperglycemia, unspecified (Chronic) R73.9 Carotid stenosis (Chronic) I65.29 Renal artery stenosis (Chronic) I70.1 HLD (hyperlipidemia) (Chronic) E78.5 Benign essential hypertension (Chronic) I10 Acute kidney insufficiency N28.9 NSTEMI (non-ST elevated myocardial infarction) I21.4 Barretts esophagus K22.70 Cerebrovascular disease I67.9 Former smoker, stopped smoking many years ago Z87.891 History of bleeding peptic ulcer Z87.11 Osteoarthritis Dehydration (Resolved) E86.0 Pneumonia J18.9 Severe sepsis A41.9, R65.20 Allergies gabapentin Allergy (Verified 02/13/20 18:59) Unknown nortriptyline Allergy (Verified 02/13/20 18:59) Unknown rofecoxib [From Vioxx] Allergy (Verified 02/13/20 18:59) Unknown tacrolimus Allergy (Verified 02/13/20 18:59) Unknown morphine Adverse Reaction (Verified 02/13/20 18:59) Nausea Home Medications: Ambulatory Orders Medication Instructions Recorded Pantoprazole Sodium [Protonix] 40 mg PO DAILY 12/15/14 Acetaminophen [Tylenol Arthritis] 650 mg PO Q4H PRN PRN 11/04/18 Carvedilol 25 mg PO BID 11/04/18 Chlorthalidone 12.5 mg PO DAILY 11/04/18 Cholecalciferol (VIT D3) [Vitamin 2,000 unit PO DAILY 11/04/18 D3] Coenzyme [id number] [Co 1 cap PO DAILY 11/04/18 Q-10 with l-Carnitine Sftgl] Leflunomide 20 mg PO DAILY 11/04/18 Pravastatin Sodium 20 mg PO QHS 11/04/18 Prednisone 5 mg PO DAILY 11/04/18 Albuterol IH (ProAir) [Proair Hfa] 1 - 2 puff INHALATION Q6H PRN PRN 11/09/18 #1 inhaler Aspirin [Aspirin, Baby] 81 mg PO DAILY@0800 tab.chew 11/09/18 amlodipine 2.5 mg tablet 2.5 mg PO DAILY 07/04/19 clobetasol 0.05 % scalp solution 1 applic TOPICAL DAILY PRN 07/04/19 clopidogrel 75 mg tablet 75 mg PO DAILY 07/04/19 losartan 100 mg tablet 100 mg PO DAILY 07/04/19 potassium chloride 10 mEq 20 meq PO BID tab 07/04/19 tablet,extended release Amox/Clavulanate Tablet [Augmentin 875 mg PO Q12H #20 tab 01/22/20 Tablet] Ondansetron [Zofran Odt] 4 mg PO Q8H PRN PRN #10 tab 01/22/20 Surgical History: Surgical History (Last Reviewed 02/14/20 @ 12:[address] 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 Smoking Status: Former smoker - *Family History Paternal Family History: Family History (Last Updated 01/02/20 @ 11:07 by Mitchell Rosenthal NP, [employer]WN[employer] SALES CONSULTANT-C) Mother Cancer Father Emphysema of lung Aunt Cancer Grandfather Vascular disease Grandmother Diabetes Brother Cancer History Items: No pertinent history Maternal Family History: Family History (Last Updated 01/02/20 @ 11:07 by Mitchell Rosenthal NP, [employer]WNED SALES CONSULTANT-C) Mother Cancer Father Emphysema of lung Aunt Cancer Grandfather Vascular disease Grandmother Diabetes Brother Cancer History Items: No pertinent history Review of Systems Constitutional: Denies: Chills, Fever Eyes: Denies: Blurred vision, Double vision HEENT: Denies: Head Aches, Sinus Congestion, Sinus Drainage Cardiovascular: Denies: Chest Pain, Palpitations Respiratory: Denies: Cough, Shortness of breath at rest, Sputum production Gastrointestinal: Reports: Abdominal Pain, Nausea, Vomiting. Denies: Diarrhea Genitourinary: Denies: Dysuria, Frequency, Hematuria Musculoskeletal: Denies: Joint Pain, Joint Tenderness Skin: Denies: Rash, Wounds Neurological: Denies: Numbness, Tingling, Focal weakness Psychiatric: Denies: Anxiety, Depression, Homicidal Ideations, Suicidal Ideations Hematologic/ Lymphatic: Reports: Anemia Patient Problems: Active and Suspected Problems (Last Reviewed 02/14/20 @ 12:[address] Michael Conner MD) Severe sepsis (Acute) Colitis (Acute) Cystitis (Acute) Objective: The patient's most recent lab work, culture data and imaging studies have all been personally reviewed. Blood and urine cultures are pending. - Physical Exam Vitals/I&O's: Vital Signs Temp Pulse Resp BP Pulse Ox 97 F L 69 12 144/47 H 99 02/14/20 04:00 02/14/20 05:00 02/14/20 05:00 02/14/20 05:00 02/14/20 05:00 Oxygen Flow Rate (L/min) 2 Oxygen Delivery Method Nasal Cannula Weight: 196 lb 10.437 oz Body Mass Index (BMI) 36.2 Intake and Output for Last 24 Hours 02/12/20 02/13/20 02/14/20 23:59 23:59 23:59 Intake Total 2868.2 / 2868.2 400 / 400 Output Total 0 / 0 Balance 2868.2 / 2868.2 400 / 400 General: Alert, Oriented x3, Cooperative, No apparent distress HEENT: Atraumatic, PERRLA, Normocephalic Oral: No Gingival or Mucosal Lesions/ Ulcerations Neck: Supple, No Nodes, Trachea Midline Lungs: Normal air movement, No rhonchi, No wheeze, No rales Cardiovascular: Regular rate, Regular Rhythm Abdomen: Bowel Sounds Present, Soft, Obese, Tender Extremities: No clubbing, No cyanosis, No edema Skin: No breakdown Musculoskeletal: No Tenderness to Palpation of Joints or Extremities, No Muscle Wasting Lymphatic: No Cervical, Supraclavicular, or Inguinal Adenopathy Neurological: Cranial nerves II-XII grossly intact, Neuro grossly intact Psych/Mental Status: Alert and oriented to time, place, person, mood and affect Labs (Last 48 Hours) 02/13/20 02/13/20 02/13/20 19:30 19:30 19:30 WBC 13.6 H RBC 3.81 L Hgb 11.3 L Hct 35.9 L MCV 94.2 MCH 29.7 MCHC 31.5 L RDW Std Deviation 45.8 H RDW Coeff of [place] 13.4 Plt Count 310 MPV 10.1 Immature Gran % (Auto) 1.000 H Neut % (Auto) 86.9 H Lymph % (Auto) 3.9 L [place] % (Auto) 7.5 Eos % (Auto) 0.5 Baso % (Auto) 0.2 Absolute Neuts (auto) 11.8 H Absolute Lymphs (auto) 0.53 L Nucleated RBC % 0 Differential Comment SCANNED Sodium 135 L Potassium 3.3 L Chloride 98 Carbon Dioxide 27.0 Anion Gap 10 BUN 29 H Creatinine 1.49 H Estim Creat Clear Calc 23.10 Est GFR (MDRD) Af Amer 43 L Est GFR (MDRD) Non-Af 36 L BUN/Creatinine Ratio 19.5 Glucose 160 H Lactic Acid 2.7 H* Calcium 8.5 Total Bilirubin 0.50 Direct Bilirubin 0.18 AST 18 ALT 15 Alkaline Phosphatase 64 Total Protein 6.3 L Albumin 3.0 L Globulin 3.3 Albumin/Globulin Ratio Lipase 37 L Urine Color Urine Clarity Urine pH Ur Specific [place] Urine Protein Urine Glucose (UA) Urine Ketones Urine Occult Blood Urine Nitrite Urine Bilirubin Urine Urobilinogen Ur Leukocyte Esterase Urine RBC Urine WBC Ur Squamous Epith Cells Urine Bacteria Urine Mucus 02/13/20 02/14/20 02/14/20 20:10 00:20 03:35 WBC 11.9 H RBC 3.69 L Hgb 10.9 L Hct 35.1 L MCV 95.1 MCH 29.5 MCHC 31.1 L RDW Std Deviation 46.7 H RDW Coeff of [place] 13.5 Plt Count 221 MPV 10.5 Immature Gran % (Auto) 0.600 Neut % (Auto) 87.0 H Lymph % (Auto) 3.5 L [place] % (Auto) 8.2 Eos % (Auto) 0.4 Baso % (Auto) 0.3 Absolute Neuts (auto) 10.4 H Absolute Lymphs (auto) 0.41 L Nucleated RBC % 0 Differential Comment SCANNED Sodium Potassium Chloride Carbon Dioxide Anion Gap BUN Creatinine Estim Creat Clear Calc Est GFR (MDRD) Af Amer Est GFR (MDRD) Non-Af BUN/Creatinine Ratio Glucose Lactic Acid 0.6 Calcium Total Bilirubin Direct Bilirubin AST ALT Alkaline Phosphatase Total Protein Albumin Globulin Albumin/Globulin Ratio Lipase Urine Color Yellow Urine Clarity Sl. Cloudy Urine pH 6.0 Ur Specific [place] 1.020 Urine Protein 100 H Urine Glucose (UA) Normal Urine Ketones 150 H Urine Occult Blood 10 H Urine Nitrite Negative Urine Bilirubin 3 H Urine Urobilinogen 1 H Ur Leukocyte Esterase 500 H Urine RBC 0 SEEN Urine WBC 5-10 SEEN Ur Squamous Epith Cells 5-10 SEEN Urine Bacteria 1+ Urine Mucus 0 SEEN 02/14/20 03:35 WBC RBC Hgb Hct MCV MCH MCHC RDW Std Deviation RDW Coeff of [place] Plt Count MPV Immature Gran % (Auto) Neut % (Auto) Lymph % (Auto) [place] % (Auto) Eos % (Auto) Baso % (Auto) Absolute Neuts (auto) Absolute Lymphs (auto) Nucleated RBC % Differential Comment Sodium 135 L Potassium 3.3 L Chloride 101 Carbon Dioxide 27.0 Anion Gap 7 BUN 28 H Creatinine 1.16 H Estim Creat Clear Calc 29.67 Est GFR (MDRD) Af Amer 58 L Est GFR (MDRD) Non-Af 48 L BUN/Creatinine Ratio 24.1 H Glucose 105 Lactic Acid Calcium 7.1 L Total Bilirubin 0.30 Direct Bilirubin AST 16 ALT 16 Alkaline Phosphatase 55 Total Protein 5.4 L Albumin 2.6 L Globulin 2.8 Albumin/Globulin Ratio 0.9 Lipase Urine Color Urine Clarity Urine pH Ur Specific [place] Urine Protein Urine Glucose (UA) Urine Ketones Urine Occult Blood Urine Nitrite Urine Bilirubin Urine Urobilinogen Ur Leukocyte Esterase Urine RBC Urine WBC Ur Squamous Epith Cells Urine Bacteria Urine Mucus Clinical Impression(s) from Imaging Studies Abdomen/Pelvis CT 02/13/20 19:17 IMPRESSION: 1. Mild diffuse colonic distention with liquid stool from the cecum to proximal sigmoid. There is pericecal fatty stranding. Findings are compatible with colitis. 2. Bilateral renal cysts. Left renal atrophy. 3. Status post cholecystectomy and hysterectomy. 4. Small hiatal hernia. 5. Diffuse degenerative changes of the visualized thoracolumbar spine. Grade 1 anterolisthesis of L4 relative to L5. Moderate thoracolumbar levoscoliosis. Status post total left hip replacement. 6. There is no evidence of free intra-abdominal or intrapelvic air or fluid. Electronically Signed: Reinier Ruffin MD at 21:41 EDT , Service support , Current Medications Hydromorphone HCl (Dilaudid Inj) 0.5 mg IV Q4H PRN PRN PRN Reason: Pain Score 6-10/10 Last Admin: 02/14/20 03:27 Dose: 0.5 mg Documented by: Sodium Chloride () 1,000 mls @ 150 mls/hr IV .[id number] [facility] Last Admin: 02/14/20 03:27 Dose: Not Given Documented by: Ciprofloxacin (Cipro) 400 mg in 200 mls @ 200 mls/hr IV Q24@2200 [facility] Metronidazole (Flagyl) 500 mg in 100 mls @ 100 mls/hr IV Q8 [facility] Last Admin: 02/14/20 06:16 Dose: 100 mls/hr Documented by: Sodium Chloride () 250 mls @ 15 mls/hr IV .[id number] PRN PRN Reason: Saline Flush Sodium Chloride () 250 mls @ 15 mls/hr IV .[id number] PRN PRN Reason: Additional IVPB Infusion Pantoprazole Sodium 40 mg/ (Sodium Chloride) 110 mls @ 330 mls/hr IV Q12 [facility] Last Infusion: 02/13/20 23:57 Dose: Infused Documented by: Ondansetron HCl (Zofran) 4 mg IV Q8H PRN PRN PRN Reason: NAUSEA/VOMITING Last Admin: 02/13/20 23:21 Dose: 4 mg Documented by: Sodium Chloride () 10 - 40 ml IV UD PRN PRN Reason: SALINE FLUSH Last Admin: 02/14/20 03:26 Dose: 20 ml Documented by: Assessment/Plan Active and Suspected Problems (Last Reviewed 02/14/20 @ 12:[address] Michael Conner MD) Severe sepsis (Acute) Colitis (Acute) Cystitis (Acute) RECOMMENDATIONS: 1. Continue antimicrobials along with gentle IV fluid hydration. 2. General surgery consultation is pending. 3. Continue PPI therapy. 4. Potassium repletion as ordered. 5. Encourage incentive spirometer use and mobilize patient as tolerated. 6. The patient is medically stable for transfer out of the intensive care unit. 7. Given the patient's lack of further ICU or pulmonary needs, will sign off. Please call with any additional questions. IMPRESSIONS: 1. Intractable abdominal pain secondary to progressive colitis Plan to continue current supportive measures including IV fluid hydration and antimicrobials. The patient remains hemodynamically stable. In fact, her blood pressures are elevated this morning. Plan to restart p.o. antihypertensive regimen. Continue pain management per hospitalist. General surgery consultation is currently pending. 2. Acute kidney injury Likely prerenal in etiology and related to intravascular volume depletion due to poor p.o. intake. Creatinine has improved with volume expansion. Continue to monitor urine output. No current indication for renal replacement therapy. 3. Hypokalemia Electrolyte repletion as ordered. Recheck levels in the morning. 4. Hypertension/GERD/hyperlipidemia/obstructive sleep apnea/pulmonary hypertension/obesity/polymyalgia rheumatica Complicates care, management, recovery and prognosis. Continue home medications as indicated. Continue nocturnal Pap therapy per home regimen. This note was generated with [employer] dictation software. It may contain incorrect words, spelling, and punctuation that were not noted in checking the note before signing. Inpatient E&M: 03878 Init Hosp L3
--- NOTE | 2020-02-14 07:15 | PCM.PN.HOSP ---
Patient Problems: Active and Suspected Problems (Last Reviewed 01/02/20 @ 11:03 by Mitchell Rosenthal [employer]MENT[employer]UDIES FACULTY MEMBER, ENVIRONMENT[employer]UDIES FACULTY MEMBER-C) Severe sepsis (Acute) Colitis (Acute) Cystitis (Acute) Reason for Visit: Follow-up on acute colitis Subjective: Patient was seen and examined. Complains of generalized abdominal discomfort, severe nausea. No vomiting here. She has not had any bowel movement. No acute events overnight. Objective: Physical exam: General: Alert, Oriented x3, Cooperative HEENT: Atraumatic, Normocephalic Neck: Supple, No JVD, Negative Carotid Bruits Lungs: Clear to auscultation, Normal air movement Cardiovascular: Regular rate, No murmurs Abdomen: Bowel Sounds Present, Distended, Obese, Tender Extremities: No edema Skin: No rashes Musculoskeletal: No Tenderness to Palpation of Joints or Extremities Neurological: Neuro grossly intact Psych/Mental Status: Normal Affect, Appropriate Vitals/I&O's: Vital Signs Temp Pulse Resp BP Pulse Ox 97 F L 73 14 197/72 H 97 02/14/20 04:00 02/14/20 06:00 02/14/20 06:00 02/14/20 06:00 02/14/20 06:00 Oxygen Flow Rate (L/min) 2 Oxygen Delivery Method Room Air Weight: 89.2 kg Body Mass Index (BMI) 36.2 Intake and Output for Last 24 Hours 02/12/20 02/13/20 02/14/20 23:59 23:59 23:59 Intake Total 2868.2 / 2868.2 400 / 400 Output Total 0 / 0 Balance 2868.2 / 2868.2 400 / 400 Laboratory Results 02/13/20 19:30: WBC 13.6 H, RBC 3.81 L, Hgb 11.3 L, Hct 35.9 L, MCV 94.2, MCH 29.7, MCHC 31.5 L, RDW Std Deviation 45.8 H, RDW Coeff of [place] 13.4, Plt Count 310, MPV 10.1, Immature Gran % (Auto) 1.000 H, Neut % (Auto) 86.9 H, Lymph % (Auto) 3.9 L, [place] % (Auto) 7.5, Eos % (Auto) 0.5, Baso % (Auto) 0.2, Absolute Neuts (auto) 11.8 H, Absolute Lymphs (auto) 0.53 L, Nucleated RBC % 0, Differential Comment SCANNED 02/13/20 19:30: Sodium 135 L, Potassium 3.3 L, Chloride 98, Carbon Dioxide 27.0, Anion Gap 10, BUN 29 H, Creatinine 1.49 H, Estim Creat Clear Calc 23.10, Est GFR (MDRD) Af Amer 43 L, Est GFR (MDRD) Non-Af 36 L, BUN/Creatinine Ratio 19.5, Glucose 160 H, Calcium 8.5, Total Bilirubin 0.50, Direct Bilirubin 0.18, AST 18, ALT 15, Alkaline Phosphatase 64, Total Protein 6.3 L, Albumin 3.0 L, Globulin 3.3, Lipase 37 L 02/13/20 19:30: Lactic Acid 2.7 H* 02/13/20 20:10: Urine Color Yellow, Urine Clarity Sl. Cloudy, Urine pH 6.0, Ur Specific [place] 1.020, Urine Protein 100 H, Urine Glucose (UA) Normal, Urine Ketones 150 H, Urine Occult Blood 10 H, Urine Nitrite Negative, Urine Bilirubin 3 H, Urine Urobilinogen 1 H, Ur Leukocyte Esterase 500 H, Urine RBC 0 SEEN, Urine WBC 5-10 SEEN, Ur Squamous Epith Cells 5-10 SEEN, Urine Bacteria 1+, Urine Mucus 0 SEEN 02/14/20 00:20: Lactic Acid 0.6 02/14/20 03:35: WBC 11.9 H, RBC 3.69 L, Hgb 10.9 L, Hct 35.1 L, MCV 95.1, MCH 29.5, MCHC 31.1 L, RDW Std Deviation 46.7 H, RDW Coeff of [place] 13.5, Plt Count 221, MPV 10.5, Immature Gran % (Auto) 0.600, Neut % (Auto) 87.0 H, Lymph % (Auto) 3.5 L, [place] % (Auto) 8.2, Eos % (Auto) 0.4, Baso % (Auto) 0.3, Absolute Neuts (auto) 10.4 H, Absolute Lymphs (auto) 0.41 L, Nucleated RBC % 0, Differential Comment SCANNED 02/14/20 03:35: Sodium 135 L, Potassium 3.3 L, Chloride 101, Carbon Dioxide 27.0, Anion Gap 7, BUN 28 H, Creatinine 1.16 H, Estim Creat Clear Calc 29.67, Est GFR (MDRD) Af Amer 58 L, Est GFR (MDRD) Non-Af 48 L, BUN/Creatinine Ratio 24.1 H, Glucose 105, Calcium 7.1 L, Total Bilirubin 0.30, AST 16, ALT 16, Alkaline Phosphatase 55, Total Protein 5.4 L, Albumin 2.6 L, Globulin 2.8, Albumin/Globulin Ratio 0.9 Current Medications Hydromorphone HCl (Dilaudid Inj) 0.5 mg IV Q4H PRN PRN PRN Reason: Pain Score 6-10/10 Last Admin: 02/14/20 03:27 Dose: 0.5 mg Documented by: Sodium Chloride () 1,000 mls @ 150 mls/hr IV .Q6H40M [facility] Last Admin: 02/14/20 03:27 Dose: Not Given Documented by: Ciprofloxacin (Cipro) 400 mg in 200 mls @ 200 mls/hr IV Q24@2200 [facility] Metronidazole (Flagyl) 500 mg in 100 mls @ 100 mls/hr IV Q8 [facility] Last Admin: 02/14/20 06:16 Dose: 100 mls/hr Documented by: Sodium Chloride () 250 mls @ 15 mls/hr IV .[id number] PRN PRN Reason: Saline Flush Sodium Chloride () 250 mls @ 15 mls/hr IV .[id number] PRN PRN Reason: Additional IVPB Infusion Pantoprazole Sodium 40 mg/ (Sodium Chloride) 110 mls @ 330 mls/hr IV Q12 [facility] Last Infusion: 02/13/20 23:57 Dose: Infused Documented by: Potassium Chloride () 10 meq in 100 mls @ 100 mls/hr IV BOLUS Q1H [facility] Stop: 02/14/20 11:14 Ondansetron HCl (Zofran) 4 mg IV Q8H PRN PRN PRN Reason: NAUSEA/VOMITING Last Admin: 02/13/20 23:21 Dose: 4 mg Documented by: Sodium Chloride () 10 - 40 ml IV UD PRN PRN Reason: SALINE FLUSH Last Admin: 02/14/20 03:26 Dose: 20 ml Documented by: STROKE Vital Signs/Narrative: Vital Signs Temp Pulse Resp BP Pulse Ox 02/14/20 06:00 73 14 197/72 H 97 02/14/20 05:00 69 12 144/47 H 99 02/14/20 04:00 97 F L 66 14 151/44 H 100 02/14/20 03:43 68 Medical Necessity - Tobacco Use Smoking Status: Former smoker Assessment/Plan All Active Problems (Last Reviewed 01/02/20 @ 11:03 by Mitchell Rosenthal [employer]UDIES FACULTY MEMBER, ENVIRONMENTAL [employer]UDIES FACULTY MEMBER-C) Severe sepsis (Acute) Colitis (Acute) Cystitis (Acute) Acute respiratory failure with hypoxia (Resolved) Right lower lobe pneumonia (Acute) Sinus tachycardia by electrocardiogram (Acute) Dehydration (Resolved) 1. Acute severe colitis, not severe sepsis related (patient had 1 SIRS Criteria plus source of infection), CT of the abdomen and pelvis confirms diffuse colonic distention from cecum to proximal sigmoid with pericecal fat stranding On IV Cipro and Flagyl as well as gentle IV fluids General surgery consulted 2. Hypokalemia, related to above, replace, recheck in a.m. 3. RICCARDO, prerenal secondary to dehydration and #1 Admitting creatinine was 1.49, improved to 1.16, baseline creatinine of about 1.02 Repeat blood work in a.m. 4. Hypertension, uncontrolled secondary to pain and not taking meds in the last couple of days. Continue on home medications, if able to tolerate - amlodipine, carvedilol. Hold chlorthalidone and losartan on account of RICCARDO Hydralazine as needed 5. PAD status post stent/carotid stenosis status post CEA/stent/hyperlipidemia, statin on hold 6. DVT PPx- Heparin SC Inpatient E&M: 77608 Subs Hosp L2
[2020-02-14 07:39] LABS: Magnesium 2.5 mg/dL (1.6-2.6)
[2020-02-14] MEDS: Ondansetron 4 MG/2 ML Vial IV ×2 (08:04→20:15)
[2020-02-14] MEDS: 0.9% Normal Saline 1,000 ML 150 ML IV ×3 (08:05→21:45)
[2020-02-14] MEDS: amLODIPine 2.5 MG Tablet PO (10:07)
[2020-02-14] MEDS: Carvedilol 25 MG Tablet PO ×2 (10:07→21:57)
[2020-02-14] MEDS: predniSONE 5 MG Tablet PO (10:07)
--- NOTE | 2020-02-14 12:28 | CON.PCM_ITS ---
Problem List (1) Colitis Status: Acute Reason for Consult Date of Consultation: 02/14/20 History of Present Illness: Patient returned to the ED secondary to continued abdominal pain. She was seen in the ER on January 21 with a one-week history of abdominal pain at that time. Work-up revealed sigmoid colitis and she was treated with a 10-day course of Augmentin. Patient presents back tonight stating that she has had no improvement after completing the antibiotic. She reports vomiting over the past 2 days and having very little p.o. intake over the past 3 days. She denies fever or chills. She is still passing gas. She states she think she is only had 1 or 2 bowel movements in the last several weeks. Patient continues to have nausea despite antiemetics she has vomited up some bile. She has had no bowel movements since her admission. Her last colonoscopy was quite a few years ago she was sure that she had diverticulosis but nothing else was found. Past Medical History Past Medical History (Chronic Problems): Chronic Problems (Last Reviewed 01/02/20 @ 11:03 by Mitchell Rosenthal [employer], [employer]) Polymyalgia rheumatica (Chronic) BMI 36.0-36.9,adult (Chronic) Pulmonary hypertension (Chronic) RVSP 55 AILYN (obstructive sleep apnea) (Chronic) AHI 115 and titrated to nasal CPAP 14 cm of water Atherosclerotic heart disease of [place] coronary artery without angina pectoris (Chronic) Chronic renal insufficiency, stage II (mild) (Chronic) Hyperglycemia, unspecified (Chronic) Carotid stenosis (Chronic) Renal artery stenosis (Chronic) HLD (hyperlipidemia) (Chronic) Benign essential hypertension (Chronic) Medical History: Medical History (Last Reviewed 02/14/20 @ 12:[address] Michael Conner MD) Atherosclerotic heart disease of [place] coronary artery without angina pectoris (Chronic) I25.10 Acute respiratory failure with hypoxia (Resolved) J96.01 Right lower lobe pneumonia (Acute) J18.1 Sinus tachycardia by electrocardiogram (Acute) R00.0 Chronic renal insufficiency, stage II (mild) (Chronic) N18.2 Hyperglycemia, unspecified (Chronic) R73.9 Carotid stenosis (Chronic) I65.29 Renal artery stenosis (Chronic) I70.1 HLD (hyperlipidemia) (Chronic) E78.5 Benign essential hypertension (Chronic) I10 Acute kidney insufficiency N28.9 NSTEMI (non-ST elevated myocardial infarction) I21.4 Barretts esophagus K22.70 Cerebrovascular disease I67.9 Former smoker, stopped smoking many years ago Z87.891 History of bleeding peptic ulcer Z87.11 Osteoarthritis Dehydration (Resolved) E86.0 Pneumonia J18.9 Severe sepsis A41.9, R65.20 Allergies gabapentin Allergy (Verified 02/13/20 18:59) Unknown nortriptyline Allergy (Verified 02/13/20 18:59) Unknown rofecoxib [From Vioxx] Allergy (Verified 02/13/20 18:59) Unknown tacrolimus Allergy (Verified 02/13/20 18:59) Unknown morphine Adverse Reaction (Verified 02/13/20 18:59) Nausea Home Medications: Ambulatory Orders Medication Instructions Recorded Pantoprazole Sodium [Protonix] 40 mg PO DAILY 12/15/14 Acetaminophen [Tylenol Arthritis] 650 mg PO Q4H PRN PRN 11/04/18 Carvedilol 25 mg PO BID 11/04/18 Chlorthalidone 12.5 mg PO DAILY 11/04/18 Cholecalciferol (VIT D3) [Vitamin 2,000 unit PO DAILY 11/04/18 D3] Coenzyme [id number] E [Co 1 cap PO DAILY 11/04/18 Q-10 with l-Carnitine Sftgl] Leflunomide 20 mg PO DAILY 11/04/18 Pravastatin Sodium 20 mg PO QHS 11/04/18 Prednisone 5 mg PO DAILY 11/04/18 Albuterol IH (ProAir) [Proair Hfa] 1 - 2 puff INHALATION Q6H PRN PRN 11/09/18 #1 inhaler Aspirin [Aspirin, Baby] 81 mg PO DAILY@0800 tab.chew 11/09/18 amlodipine 2.5 mg tablet 2.5 mg PO DAILY 07/04/19 clobetasol 0.05 % scalp solution 1 applic TOPICAL DAILY PRN 07/04/19 clopidogrel 75 mg tablet 75 mg PO DAILY 07/04/19 losartan 100 mg tablet 100 mg PO DAILY 07/04/19 potassium chloride 10 mEq 20 meq PO BID tab 07/04/19 tablet,extended release Amox/Clavulanate Tablet [Augmentin 875 mg PO Q12H #20 tab 01/22/20 Tablet] Ondansetron [Zofran Odt] 4 mg PO Q8H PRN PRN #10 tab 01/22/20 Surgical History: Surgical History (Last Reviewed 02/14/20 @ 12:[address] Michael Conner MD) H/O carotid endarterectomy Z98.890 History of cholecystectomy Z90.49 History of hysterectomy Z90.710 History of left hip replacement Z96.642 History of total right knee replacement Z96.651 Surgical History: appendectomy, cholecystectomy, hysterectomy, total hip arthroplasty, - - Exploratory laparotomy Psychiatric History: No pertinent psych hx [employer] History: No pertinent [employer] history Smoking Status: Former smoker - *Family History Paternal Family History: Family History (Last Updated 01/02/20 @ 11:07 by Mitchell Rosenthal [employer], [employer]) Mother Cancer Father Emphysema of lung Aunt Cancer Grandfather Vascular disease Grandmother Diabetes Brother Cancer History Items: No pertinent history Maternal Family History: Family History (Last Updated 01/02/20 @ 11:07 by Mitchell Rosenthal [employer], [employer]) Mother Cancer Father Emphysema of lung Aunt Cancer Grandfather Vascular disease Grandmother Diabetes Brother Cancer History Items: No pertinent history Review of Systems Constitutional: Denies: Chills, Fever, Weight Change Cardiovascular: Denies: Chest Pain, Chest Pressure, Chest Tightness, Palpitations Respiratory: Denies: Cough, Hemoptysis, Shortness of breath at rest, Shortness of breath upon exertion, Wheezing Gastrointestinal: Reports: Abdominal Pain, Nausea. Denies: Hematemesis, Hematochezia Genitourinary: Denies: Dysuria, Frequency, Hematuria, Urgency Patient Problems: Active and Suspected Problems (Last Reviewed 01/02/20 @ 11:03 by Mitchell Rosenthal [employer], [employer]) Severe sepsis (Acute) Colitis (Acute) Cystitis (Acute) - Physical Exam Vitals/I&O's: Vital Signs Temp Pulse Resp BP Pulse Ox 97.0 F L 70 13 144/53 H 97 02/14/20 09:00 02/14/20 09:00 02/14/20 09:00 02/14/20 09:00 02/14/20 11:28 Oxygen Flow Rate (L/min) 2 Oxygen Delivery Method Room Air Weight: 196 lb 10.437 oz Body Mass Index (BMI) 36.2 Intake and Output for Last 24 Hours 02/12/20 02/13/2002/13/20 23:59 23:59 23:59 Intake Total 2868.2 / 2868.2 1617.5 / 1617.5 Output Total 0 / 0 Balance 2868.2 / 2868.2 1617.5 / 1617.5 General: Alert, Oriented x3 Neck: Supple, No JVD Lungs: Clear to auscultation Cardiovascular: Regular rate, Regular Rhythm, No murmurs Abdomen: Distended, Tender - Diffuse tenderness but no rebound guarding or peritoneal signs are identified. Extremities: No clubbing, No cyanosis, No edema Microbiology Past 72 Hours 02/13/20 20:10 Urine, Clean Catch Urine Culture - Preliminary Culture exhibits no growth. Laboratory Results 02/13/20 19:30: WBC 13.6 H, RBC 3.81 L, Hgb 11.3 L, Hct 35.9 L, MCV 94.2, MCH 29.7, MCHC 31.5 L, RDW Std Deviation 45.8 H, RDW Coeff of Blaine 13.4, Plt Count 310, MPV 10.1, Immature Gran % (Auto) 1.000 H, Neut % (Auto) 86.9 H, Lymph % (Auto) 3.9 L, [place] % (Auto) 7.5, Eos % (Auto) 0.5, Baso % (Auto) 0.2, Absolute Neuts (auto) 11.8 H, Absolute Lymphs (auto) 0.53 L, Nucleated RBC % 0, Differential Comment SCANNED 02/13/20 19:30: Sodium 135 L, Potassium 3.3 L, Chloride 98, Carbon Dioxide 27.0, Anion Gap 10, BUN 29 H, Creatinine 1.49 H, Estim Creat Clear Calc 23.10, Est GFR (MDRD) Af Amer 43 L, Est GFR (MDRD) Non-Af 36 L, BUN/Creatinine Ratio 19.5, Glucose 160 H, Calcium 8.5, Total Bilirubin 0.50, Direct Bilirubin 0.18, AST 18, ALT 15, Alkaline Phosphatase 64, Total Protein 6.3 L, Albumin 3.0 L, Globulin 3.3, Lipase 37 L 02/13/20 19:30: Lactic Acid 2.7 H* 02/13/20 20:10: Urine Color Yellow, Urine Clarity Sl. Cloudy, Urine pH 6.0, Ur Specific [place] 1.020, Urine Protein 100 H, Urine Glucose (UA) Normal, Urine Ketones 150 H, Urine Occult Blood 10 H, Urine Nitrite Negative, Urine Bilirubin 3 H, Urine Urobilinogen 1 H, Ur Leukocyte Esterase 500 H, Urine RBC 0 SEEN, Urine WBC 5-10 SEEN, Ur Squamous Epith Cells 5-10 SEEN, Urine Bacteria 1+, Urine Mucus 0 SEEN 02/14/20 00:20: Lactic Acid 0.6 02/14/20 03:35: WBC 11.9 H, RBC 3.69 L, Hgb 10.9 L, Hct 35.1 L, MCV 95.1, MCH 29.5, MCHC 31.1 L, RDW Std Deviation 46.7 H, RDW Coeff of [place]aine 13.5, Plt Count 221, MPV 10.5, Immature Gran % (Auto) 0.600, Neut % (Auto) 87.0 H, Lymph % (Auto) 3.5 L, Crowley % (Auto) 8.2, Eos % (Auto) 0.4, Baso % (Auto) 0.3, Absolute Neuts (auto) 10.4 H, Absolute Lymphs (auto) 0.41 L, Nucleated RBC % 0, Differential Comment SCANNED 02/14/20 03:35: Sodium 135 L, Potassium 3.3 L, Chloride 101, Carbon Dioxide 27.0, Anion Gap 7, BUN 28 H, Creatinine 1.16 H, Estim Creat Clear Calc 29.67, Est GFR (MDRD) Af Amer 58 L, Est GFR (MDRD) Non-Af 48 L, BUN/Creatinine Ratio 24.1 H, Glucose 105, Calcium 7.1 L, Total Bilirubin 0.30, AST 16, ALT 16, Alkaline Phosphatase 55, Total Protein 5.4 L, Albumin 2.6 L, Globulin 2.8, Albumin/Globulin Ratio 0.9 02/14/20 03:35: Magnesium 2.5 Current Medications Amlodipine Besylate (Norvasc) 2.5 mg PO DAILY [facility] Last Admin: 02/14/20 10:07 Dose: 2.5 mg Documented by: Carvedilol (Coreg) 25 mg PO BID [facility] Last Admin: 02/14/20 10:07 Dose: 25 mg Documented by: Heparin Sodium (Porcine) (Heparin Na) 5,000 unit SC Q8 [facility] Hydralazine HCl (Apresoline Iv) 10 mg IV Q4H PRN PRN PRN Reason: BLOOD PRESSURE Hydromorphone HCl (Dilaudid Inj) 0.5 mg IV Q4H PRN PRN PRN Reason: Pain Score 6-10/10 Last Admin: 02/14/20 08:04 Dose: 0.5 mg Documented by: Sodium Chloride () 1,000 mls @ 150 mls/hr IV .[id number] [facility] Last Admin: 02/14/20 08:05 Dose: 150 mls/hr Documented by: Ciprofloxacin (Cipro) 400 mg in 200 mls @ 200 mls/hr IV Q24@2200 [facility] Metronidazole (Flagyl) 500 mg in 100 mls @ 100 mls/hr IV Q8 [facility] Last Infusion: 02/14/20 07:16 Dose: Infused Documented by: Sodium Chloride () 250 mls @ 15 mls/hr IV .[id number] PRN PRN Reason: Saline Flush Sodium Chloride () 250 mls @ 15 mls/hr IV .[id number] PRN PRN Reason: Additional IVPB Infusion Pantoprazole Sodium 40 mg/ (Sodium Chloride) 110 mls @ 330 mls/hr IV Q12 [facility] Last Infusion: 02/14/20 11:18 Dose: Infused Documented by: Ondansetron HCl (Zofran) 4 mg IV Q8H PRN PRN PRN Reason: NAUSEA/VOMITING Last Admin: 02/14/20 08:04 Dose: 4 mg Documented by: Prednisone () 5 mg PO DAILYCM [facility] Last Admin: 02/14/20 10:07 Dose: 5 mg Documented by: Sodium Chloride () 10 - 40 ml IV UD PRN PRN Reason: SALINE FLUSH Last Admin: 02/14/20 08:04 Dose: 20 ml Documented by: Assessment/Plan All Active Problems (Last Reviewed 01/02/20 @ 11:03 by Mitchell Rosenthal [employer], [employer]) Severe sepsis (Acute) Colitis (Acute) Cystitis (Acute) Acute respiratory failure with hypoxia (Resolved) Right lower lobe pneumonia (Acute) Sinus tachycardia by electrocardiogram (Acute) Dehydration (Resolved) At this point I would suggest we start some enemas to see if we can encourage things to come through the sigmoid colon. I have gone over the CAT scan with the radiologist and there is a progression of the colitis which seemed to have started in the sigmoid colon now to involve the cecum to the sigmoid colon mild in nature except for the sigmoid colon which seems fairly thick. Not quite sure why she is not having any bowel movements which I would have at least anticipated with a diagnosis of colitis. Office Visits / Consults: [id number] IP Consult L3
--- NOTE | 2020-02-14 12:55 | CASEMGMT ---
RN LISA Face to Face with patient for initial transition planning/care coordination assessment. RN CM introduced self and role at [facility]. Patient lying in bed, alert and oriented. Patient willing to participate in assessment and is able to answer all questions appropriately. Care providers, pharmacy, and demographics verified. Patient wishes to discharge home, not sure of needs at discharge, will monitor PT/OT. Patient states she has no further needs or concerns at this time. CM to follow for discharge planning needs that may arise. PCP: Nelly Specialists: Tayo, rheumatology, Karin; Vinnie, pulmonology; Moodanup, cardiology Preferred Pharmacy: [facility] Insurance: [employer] Prescription Benefit: yes Living Will/HPOA: none LNOK: Daughter, brother Living Arrangements: Patient lives with brother in a split level home. Patient was independent and able to ambulate stairs prior to hospitalization. Transportation: self/daughter DME/HHC: Patient states she has shower chair, raised toilet, grab bars, walker, rollator, and cpap at home. Patient has previously had [facility] HHC Disposition Plan: Patient to discharge home with family support and follow-up plans in place. Will monitor therapy for need for HHC at discharge. Rola KAUR, RN, CM
[2020-02-14] MEDS: Heparin Injection (Vial) 5,000 UNIT/ML VIAL 5000 UNIT SC ×2 (14:44→21:57)
[2020-02-14] MEDS: Ciprofloxacin 400 MG/200 ML BAG 200 MG IV (22:16)
[2020-02-15] MEDS: HYDROmorphone 0.5 MG/0.5 ML SYRINGE IV ×6 (00:18→23:41)
[2020-02-15 02:46] VITALS: BP 142/88; PULSE 72; RESP 16; TEMP 36.9; O2SAT 93
[2020-02-15] MEDS: metroNIDAZOLE 500 MG/100 ML BAG 100 MG IV ×3 (05:52→22:13)
[2020-02-15] MEDS: 0.9% Normal Saline 1,000 ML 150 ML IV ×3 (05:52→19:30)
[2020-02-15] MEDS: Heparin Injection (Vial) 5,000 UNIT/ML VIAL 5000 UNIT SC ×3 (05:53→22:16)
[2020-02-15] MEDS: Ondansetron 4 MG/2 ML Vial IV ×2 (05:59→20:17)
[2020-02-15 07:25] LABS: Absolute Lymphocyte Count 0.42 X10^3/uL (0.83-4.51); Absolute Neutrophil Count 9.6 X10^3/uL (2.0-7.7); Basophil# 0.04 X10^3/uL; Basophil% 0.4 % (0-1); Eosinophil# 0.14 X10^3/uL; Eosinophils% 1.2 % (0-5); Hematocrit 32.9 % (37-47); Hemoglobin 9.9 g/dL (12.0-15.0); Lymphocyte # 0.42 X10^3/ul (4.0); Lymphocyte % 3.7 % (19-41); Mean Corp Hgb Conc 30.1 g/dL (32-36); Mean Corpuscular Hgb 29.1 pg (27.0-32.0); Mean Corpuscular Volume 96.8 fL (81-99); Mean Platelet Vol. 9.5 fl (6.2-12.0); Monocyte# 1.01 X10^3/uL; NRBC Flagged by Analyzer 0 % (0-5); Neutrophil # 9.57 X10^3/uL (2.7-7.7); Neutrophil % 85.1 % (47-70); POSITIVE DIFFERENTIAL YES; Platelet Count 226 K/mm3 (150-450); RBC Distribution Width CV 13.6 % (11.6-14.6); RBC Distribution Width SD 49.1 fl (35.1-43.9); White Blood Count 11.3 K/mm3 (4.4-11.0)
[2020-02-15 07:26] LABS: Differential Indicated SCAN CRITERIA MET
[2020-02-15 07:45] VITALS: O2SAT 95
[2020-02-15 07:54] LABS: ALB/GLOB Ratio 0.9 RATIO (0.9-2.4); AST(SGOT) 15 U/L (15-37); Alanine Aminotransfer ALT/SGPT 12 U/L (13-56); Albumin, Serum 2.3 g/dL (3.2-5.0); Alkaline Phosphatase 51 U/L (45-117); Anion Gap 6 (5-15); BUN 20 mg/dL (7-18); BUN/Creat Ratio 26.2 RATIO (10-20); Chloride 106 mmol/L (98-107); Creatinine, Serum 0.76 mg/dL (0.55-1.02); EST Glomerular Filtration Rate 78 mL/min (>60); Est Glom Filt Rate - Afr Amer 94 mL/min (>60); Estimated Creatinine Clearance 34.42 ml/min; Globulin 2.7 g/dL (2.2-4.2); Glucose 87 mg/dL (74-106); Potassium 3.3 mmol/L (3.5-5.1); Sodium Level 138 mmol/L (136-145)
[2020-02-15 07:58] VITALS: BP 179/60; PULSE 69; RESP 16; TEMP 36.3; O2SAT 97
[2020-02-15] MEDS: amLODIPine 2.5 MG Tablet PO (09:13)
[2020-02-15] MEDS: predniSONE 5 MG Tablet PO (09:13)
[2020-02-15] MEDS: Carvedilol 25 MG Tablet PO (09:14)
--- NOTE | 2020-02-15 11:17 | PN.SURG_ITS ---
Patient Problems: Active and Suspected Problems (Last Reviewed 02/14/20 @ 12:[address] Michael Conner MD) Severe sepsis (Acute) Colitis (Acute) Cystitis (Acute) Subjective: Report patient has had no further vomiting still feels nauseated not really getting up and moving whatsoever. She has had no flatus and no bowel movements. Objective: Abdomen remains distended but there is no rebound guarding or peritoneal signs identified - Physical Exam Vitals/I&O's: Vital Signs Temp Pulse Resp BP Pulse Ox 97.4 F L 69 16 179/60 H 97 02/15/20 07:58 02/15/20 07:58 02/15/20 07:58 02/15/20 07:58 02/15/20 07:58 Oxygen Flow Rate (L/min) 2 Oxygen Delivery Method Room Air Weight: 196 lb 6.91 oz Body Mass Index (BMI) 36.2 Intake and Output for Last 24 Hours 02/13/20 02/14/20 02/15/20 23:59 23:59 23:59 Intake Total 2868.2 / 2868.2 4547.5 / 4547.5 1190 / 1190 Output Total 200 / 200 Balance 2868.2 / 2868.2 4347.5 / 4347.5 1190 / 1190 Microbiology Past 72 Hours 02/13/20 20:10 Urine, Clean Catch Urine Culture - Final Mixed Gram Pos & Gram Neg Org Laboratory Results 02/15/20 07:08: WBC 11.3 H, RBC 3.40 L, Hgb 9.9 L, Hct 32.9 L, MCV 96.8, MCH 29.1, MCHC 30.1 L, RDW Std Deviation 49.1 H, RDW Coeff of Blaine 13.6, Plt Count 226, MPV 9.5, Immature Gran % (Auto) 0.600, Neut % (Auto) 85.1 H, Lymph % (Auto) 3.7 L, [place] % (Auto) 9.0, Eos % (Auto) 1.2, Baso % (Auto) 0.4, Absolute Neuts (auto) 9.6 H, Absolute Lymphs (auto) 0.42 L, Nucleated RBC % 0, Differential Comment COMMENT 02/15/20 07:08: Sodium 138, Potassium 3.3 L, Chloride 106, Carbon Dioxide 26.0, Anion Gap 6, BUN 20 H, Creatinine 0.76, Estim Creat Clear Calc 34.42, Est GFR (MDRD) Af Amer 94, Est GFR (MDRD) Non-Af 78, BUN/Creatinine Ratio 26.2 H, Glucose 87, Calcium 7.0 L, Total Bilirubin 0.40, AST 15, ALT 12 L, Alkaline Phosphatase 51, Total Protein 5.0 L, Albumin 2.3 L, Globulin 2.7, Albumin/Globulin Ratio 0.9 Current Medications Amlodipine Besylate (Norvasc) 2.5 mg PO DAILY [facility] Last Admin: 02/15/20 09:13 Dose: 2.5 mg Documented by: Carvedilol (Coreg) 25 mg PO BID [facility] Last Admin: 02/15/20 09:14 Dose: 25 mg Documented by: Heparin Sodium (Porcine) (Heparin Na) 5,000 unit SC Q8 [facility] Last Admin: 02/15/20 05:53 Dose: 5,000 unit Documented by: Hydralazine HCl (Apresoline Iv) 10 mg IV Q4H PRN PRN PRN Reason: BLOOD PRESSURE Hydromorphone HCl (Dilaudid Inj) 0.5 mg IV Q4H PRN PRN PRN Reason: Pain Score 6-10/10 Last Admin: 02/15/20 10:26 Dose: 0.5 mg Documented by: Sodium Chloride () 1,000 mls @ 150 mls/hr IV .[id number] [facility] Last Admin: 02/15/20 05:52 Dose: 150 mls/hr Documented by: Metronidazole (Flagyl) 500 mg in 100 mls @ 100 mls/hr IV Q8 [facility] Last Infusion: 02/15/20 07:58 Dose: Infused Documented by: Sodium Chloride () 250 mls @ 15 mls/hr IV .[id number] PRN PRN Reason: Saline Flush Sodium Chloride () 250 mls @ 15 mls/hr IV .[id number] PRN PRN Reason: Additional IVPB Infusion Pantoprazole Sodium 40 mg/ (Sodium Chloride) 110 mls @ 330 mls/hr IV Q12 [facility] Last Infusion: 02/15/20 09:43 Dose: Infused Documented by: Ciprofloxacin (Cipro) 400 mg in 200 mls @ 200 mls/hr IV Q12 [facility] Ondansetron HCl (Zofran) 4 mg IV Q8H PRN PRN PRN Reason: NAUSEA/VOMITING Last Admin: 02/15/20 05:59 Dose: 4 mg Documented by: Prednisone () 5 mg PO DAILYCM [facility] Last Admin: 02/15/20 09:13 Dose: 5 mg Documented by: Sodium Chloride () 10 - 40 ml IV UD PRN PRN Reason: SALINE FLUSH Last Admin: 02/14/20 20:23 Dose: 10 ml Documented by: Medical Necessity - Tobacco Use Smoking Status: Former smoker Assessment/Plan All Active Problems (Last Reviewed 02/14/20 @ 12:[address] Michael Conner MD) Severe sepsis (Acute) Colitis (Acute) Cystitis (Acute) Acute respiratory failure with hypoxia (Resolved) Right lower lobe pneumonia (Acute) Sinus tachycardia by electrocardiogram (Acute) Dehydration (Resolved) I do not think I am going to push doing any more enemas at this time I think continued IV antibiotics and bowel rest is all I want to do at this time. Inpatient E&M: [id number] Subs Hosp L2
[2020-02-15] MEDS: Ciprofloxacin 400 MG/200 ML BAG 200 MG IV ×2 (11:19→22:47)
--- NOTE | 2020-02-15 12:11 | PN_ITS ---
Patient Problems: Active and Suspected Problems (Last Reviewed 02/14/20 @ 12:[address] Michael Conner MD) Severe sepsis (Acute) Colitis (Acute) Cystitis (Acute) Reason for Visit: Acute pancolitis Subjective: Patient is a 79-year-old lady admitted with abdominal pain and assessment of sepsis secondary to acute colitis made admitted to regular nursing floor for further management Objective: GENERAL: cooperative HEENT: Atraumatic; EYES; Anicteric, Normal Conjunctiva NECK; supple, normal thyroid, RESPIRATORY: Diminished to auscultation CARDIOVASCULAR: Regular S1 S2, GI: Abdomen distended : No Renal angle tenderness; EXTREMITIES: No edema, no clubbing, MUSCULOSKELETAL: no muscle waisting NEURO: Awake; no lateralizing signs. SKIN: No Rash PSYCH; Flat affect Vitals/I&O's: Vital Signs Temp Pulse Resp BP Pulse Ox 97.4 F L 69 16 179/60 H 97 02/15/20 07:58 02/15/20 07:58 02/15/20 07:58 02/15/20 07:58 02/15/20 07:58 Oxygen Flow Rate (L/min) 2 Oxygen Delivery Method Room Air Weight: 89.1 kg Body Mass Index (BMI) 36.2 Intake and Output for Last 24 Hours 02/13/20 02/14/20 02/15/20 23:59 23:59 23:59 Intake Total 2868.2 / 2868.2 4547.5 / 4547.5 2125.0 / 2125.0 Output Total 200 / 200 Balance 2868.2 / 2868.2 4347.5 / 4347.5 2125.0 / 2125.0 Microbiology Past 72 Hours 02/13/20 20:10 Urine, Clean Catch Urine Culture - Final Mixed Gram Pos & Gram Neg Org Laboratory Results 02/15/20 07:08: WBC 11.3 H, RBC 3.40 L, Hgb 9.9 L, Hct 32.9 L, MCV 96.8, MCH 29.1, MCHC 30.1 L, RDW Std Deviation 49.1 H, RDW Coeff of Blaine 13.6, Plt Count 226, MPV 9.5, Immature Gran % (Auto) 0.600, Neut % (Auto) 85.1 H, Lymph % (Auto) 3.7 L, [place] % (Auto) 9.0, Eos % (Auto) 1.2, Baso % (Auto) 0.4, Absolute Neuts (auto) 9.6 H, Absolute Lymphs (auto) 0.42 L, Nucleated RBC % 0, Differential Comment COMMENT 02/15/20 07:08: Sodium 138, Potassium 3.3 L, Chloride 106, Carbon Dioxide 26.0, Anion Gap 6, BUN 20 H, Creatinine 0.76, Estim Creat Clear Calc 34.42, Est GFR (MDRD) Af Amer 94, Est GFR (MDRD) Non-Af 78, BUN/Creatinine Ratio 26.2 H, Glucose 87, Calcium 7.0 L, Total Bilirubin 0.40, AST 15, ALT 12 L, Alkaline Phosphatase 51, Total Protein 5.0 L, Albumin 2.3 L, Globulin 2.7, Albumin/Globulin Ratio 0.9 Current Medications Amlodipine Besylate (Norvasc) 2.5 mg PO DAILY [facility] Last Admin: 02/15/20 09:13 Dose: 2.5 mg Documented by: Carvedilol (Coreg) 25 mg PO BID [facility] Last Admin: 02/15/20 09:14 Dose: 25 mg Documented by: Heparin Sodium (Porcine) (Heparin Na) 5,000 unit SC Q8 [facility] Last Admin: 02/15/20 05:53 Dose: 5,000 unit Documented by: Hydralazine HCl (Apresoline Iv) 10 mg IV Q4H PRN PRN PRN Reason: BLOOD PRESSURE Hydromorphone HCl (Dilaudid Inj) 0.5 mg IV Q4H PRN PRN PRN Reason: Pain Score 6-10/10 Last Admin: 02/15/20 10:26 Dose: 0.5 mg Documented by: Sodium Chloride () 1,000 mls @ 150 mls/hr IV .[id number] [facility] Last Infusion: 02/15/20 12:06 Dose: 0 mls/hr Documented by: Metronidazole (Flagyl) 500 mg in 100 mls @ 100 mls/hr IV Q8 [facility] Last Infusion: 02/15/20 07:58 Dose: Infused Documented by: Sodium Chloride () 250 mls @ 15 mls/hr IV .[id number] PRN PRN Reason: Saline Flush Last Admin: 02/15/20 12:04 Dose: 15 mls/hr Documented by: Sodium Chloride () 250 mls @ 15 mls/hr IV .[id number] PRN PRN Reason: Additional IVPB Infusion Pantoprazole Sodium 40 mg/ (Sodium Chloride) 110 mls @ 330 mls/hr IV Q12 [facility] Last Infusion: 02/15/20 09:43 Dose: Infused Documented by: Ciprofloxacin (Cipro) 400 mg in 200 mls @ 200 mls/hr IV Q12 [facility] Last Admin: 02/15/20 11:19 Dose: 200 mls/hr Documented by: Ondansetron HCl (Zofran) 4 mg IV Q8H PRN PRN PRN Reason: NAUSEA/VOMITING Last Admin: 02/15/20 05:59 Dose: 4 mg Documented by: Prednisone () 5 mg PO DAILYCM [facility] Last Admin: 02/15/20 09:13 Dose: 5 mg Documented by: Sodium Chloride () 10 - 40 ml IV UD PRN PRN Reason: SALINE FLUSH Last Admin: 02/14/20 20:23 Dose: 10 ml Documented by: Medical Necessity - Tobacco Use Smoking Status: Former smoker Assessment/Plan All Active Problems (Last Reviewed 02/14/20 @ 12:[address] Michael Conner MD) Severe sepsis (Acute) Colitis (Acute) Cystitis (Acute) Acute respiratory failure with hypoxia (Resolved) Right lower lobe pneumonia (Acute) Sinus tachycardia by electrocardiogram (Acute) Dehydration (Resolved) Patient is a 79-year-old lady admitted with abdominal pain and assessment of sepsis secondary to acute colitis made admitted to regular nursing floor for further management 1. Acute pancolitis ?With sepsis. CT of the abdomen obtained demonstrated diffuse colonic distention from the cecum to the proximal sigmoid. Admitted to regular nursing floor with conservative management with Cipro and Flagyl fluids pain meds with consultation placed to general surgery patient has been seen in consultation by Dr. Conner 2. Hypokalemia ?Corrected per protocol 3. Acute kidney injury ?Secondary to dehydration managed with IV fluids kidney function did improve 4. Essential hypertension ?Patient blood pressure was uncontrolled at the time of admission improved with addition of hydralazine 5. Peripheral arterial disease ?With previous history of CEA and subsequent stent placement for carotid artery stenosis 6. Dyslipidemia ?Patient is on statin therapy at home held 7. DVT prophylaxis SC heparin Clinical Impression(s) from Imaging Studies Abdomen/Pelvis CT 02/13/20 19:17 IMPRESSION: 1. Mild diffuse colonic distention with liquid stool from the cecum to proximal sigmoid. There is pericecal fatty stranding. Findings are compatible with colitis. 2. Bilateral renal cysts. Left renal atrophy. 3. Status post cholecystectomy and hysterectomy. 4. Small hiatal hernia. 5. Diffuse degenerative changes of the visualized thoracolumbar spine. Grade 1 anterolisthesis of L4 relative to L5. Moderate thoracolumbar levoscoliosis. Status post total left hip replacement. 6. There is no evidence of free intra-abdominal or intrapelvic air or fluid. Electronically Signed: Reinier Ruffin MD at 21:41 EDT , Service support , Active Medications Amlodipine Besylate (Norvasc) 2.5 mg PO DAILY [facility] Last Admin: 02/15/20 09:13 Dose: 2.5 mg Documented by: Carvedilol (Coreg) 25 mg PO BID [facility] Last Admin: 02/15/20 09:14 Dose: 25 mg Documented by: Heparin Sodium (Porcine) (Heparin Na) 5,000 unit SC Q8 [facility] Last Admin: 02/15/20 05:53 Dose: 5,000 unit Documented by: Hydralazine HCl (Apresoline Iv) 10 mg IV Q4H PRN PRN PRN Reason: BLOOD PRESSURE Hydromorphone HCl (Dilaudid Inj) 0.5 mg IV Q4H PRN PRN PRN Reason: Pain Score 6-10/10 Last Admin: 02/15/20 10:26 Dose: 0.5 mg Documented by: Sodium Chloride () 1,000 mls @ 150 mls/hr IV .[id number] [facility] Last Infusion: 02/15/20 12:06 Dose: 0 mls/hr Documented by: Metronidazole (Flagyl) 500 mg in 100 mls @ 100 mls/hr IV Q8 [facility] Last Infusion: 02/15/20 07:58 Dose: Infused Documented by: Sodium Chloride () 250 mls @ 15 mls/hr IV .[id number] PRN PRN Reason: Saline Flush Last Admin: 02/15/20 12:04 Dose: 15 mls/hr Documented by: Sodium Chloride () 250 mls @ 15 mls/hr IV .[id number] PRN PRN Reason: Additional IVPB Infusion Pantoprazole Sodium 40 mg/ (Sodium Chloride) 110 mls @ 330 mls/hr IV Q12 [facility] Last Infusion: 02/15/20 09:43 Dose: Infused Documented by: Ciprofloxacin (Cipro) 400 mg in 200 mls @ 200 mls/hr IV Q12 [facility] Last Admin: 02/15/20 11:19 Dose: 200 mls/hr Documented by: Ondansetron HCl (Zofran) 4 mg IV Q8H PRN PRN PRN Reason: NAUSEA/VOMITING Last Admin: 02/15/20 05:59 Dose: 4 mg Documented by: Prednisone () 5 mg PO DAILYCM [facility] Last Admin: 02/15/20 09:13 Dose: 5 mg Documented by: Sodium Chloride () 10 - 40 ml IV UD PRN PRN Reason: SALINE FLUSH Last Admin: 02/14/20 20:23 Dose: 10 ml Documented by: Inpatient E&M: 44480 Subs Hosp L2
--- NOTE | 2020-02-15 13:44 | CASEMGMT ---
FELICE GONZALEZ NOTE: RNAnabela, informs this nurse that pt states does not feel her home is the best place to be living and she may be interested in going somewhere else. FELICE GONZALEZ to room to talk with pt. Introduced self and role of FELICE GONZALEZ. Pt states she is currently living with her brother but states she thinks she would do better living somewhere else, as it is a tri-level home w/8 steps up and 6 steps down to lower level. She states she is currently able to manage the steps well, but knows, in the future, that these will become more difficult. Pt states she feels safe to return home at discharge, but is thinking more towards making plans for in the future. She states she has never applied for [facility], but would like some information on how to do this and on Assisted Living. SW, Rola Coombs, made aware pt is interested in information on filing for [facility] and on Assisted Living. PT/OT evals had been ordered, but pt states she does not feel that she needs this and states, I just need to get up and move around. I've just been so tired, I just need to start moving around. Pt states she does not feel that she is not homebound and is not interested in [facility] d/t aggressive dogs in the home. Discussed options of OP therapy as well, but pt declines this also. Pt made aware, if she feels she would like any therapy or if she has any concerns/additional discharge needs, to ask for CM. Pt voices understanding. Marisa KAUR RN, CM
[2020-02-15 13:59] VITALS: BP 144/81; PULSE 86; RESP 16; TEMP 36.5; O2SAT 92
--- NOTE | 2020-02-15 15:28 | CASEMGMT ---
Social Work SW met with pt and introduced self and role of SW. Pt with questions about housing, assisted living and medicaid. SW explained Medicaid process, income guidelines, assisted living waiver program and [facility] medicaid program. Written information and application provided. Also discussed [facility] and provided written information about this program and different apartment options. Pt will be returning home with her brother at time of discharge but pt feels she is becoming a burden to him and will need to find her own place to live soon. Pt appreciative of conversation and resources. Pt will follow up housing options once home. No further SW needs identified at this time. SARAH Johnson
[2020-02-15] MEDS: 0.9% Saline Lock 10 ML Syringe IV ×2 (20:18→23:41)
[2020-02-15 20:20] VITALS: BP 106/62; PULSE 74; RESP 18; TEMP 36.6; O2SAT 97
[2020-02-16] MEDS: proCHLORPERazine 10 MG/2 ML Vial IV (00:20)
[2020-02-16] MEDS: 0.9% Saline Lock 10 ML Syringe IV ×5 (00:20→17:00)
[2020-02-16 02:32] VITALS: BP 155/69; PULSE 71; RESP 18; TEMP 36.6; O2SAT 96
[2020-02-16] MEDS: 0.9% Normal Saline 1,000 ML 150 ML IV ×3 (03:33→19:55)
[2020-02-16] MEDS: HYDROmorphone 0.5 MG/0.5 ML SYRINGE IV ×5 (03:38→21:00)
[2020-02-16] MEDS: metroNIDAZOLE 500 MG/100 ML BAG 100 MG IV ×3 (05:58→21:39)
[2020-02-16] MEDS: Heparin Injection (Vial) 5,000 UNIT/ML VIAL 5000 UNIT SC ×3 (05:59→21:12)
[2020-02-16 06:13] LABS: Hematocrit 31.2 % (37-47); Hemoglobin 9.5 g/dL (12.0-15.0); Mean Corp Hgb Conc 30.4 g/dL (32-36); Mean Corpuscular Hgb 29.1 pg (27.0-32.0); Mean Corpuscular Volume 95.4 fL (81-99); Mean Platelet Vol. 9.7 fl (6.2-12.0); Platelet Count 239 K/mm3 (150-450); RBC Distribution Width CV 13.6 % (11.6-14.6); Red Blood Count 3.27 M/mm3 (4.2-5.4); White Blood Count 12.8 K/mm3 (4.4-11.0)
[2020-02-16 06:54] LABS: Anion Gap 8 (5-15); BUN 13 mg/dL (7-18); BUN/Creat Ratio 17.4 RATIO (10-20); Calcium,Total 6.6 mg/dL (8.5-10.1); Chloride 107 mmol/L (98-107); Creatinine, Serum 0.75 mg/dL (0.55-1.02); EST Glomerular Filtration Rate 80 mL/min (>60); Est Glom Filt Rate - Afr Amer 96 mL/min (>60); Estimated Creatinine Clearance 34.42 ml/min; Glucose 79 mg/dL (74-106); Magnesium 2.2 mg/dL (1.6-2.6); Sodium Level 137 mmol/L (136-145)
--- NOTE | 2020-02-16 07:24 | PN_ITS ---
Patient Problems: Active and Suspected Problems (Last Reviewed 02/14/20 @ 12:[address] Michael Conner MD) Severe sepsis (Acute) Colitis (Acute) Cystitis (Acute) Reason for Visit: Acute pancolitis Subjective: Patient seen admitted to [facility] clinically. Diagnostic data reviewed significant for potassium of 3.0 this a.m. correction initiated Objective: GENERAL: cooperative HEENT: Atraumatic; EYES; Anicteric, Normal Conjunctiva NECK; supple, normal thyroid, RESPIRATORY: Diminished to auscultation CARDIOVASCULAR: Regular S1 S2, GI: Abdomen distended : No Renal angle tenderness; EXTREMITIES: No edema, no clubbing, MUSCULOSKELETAL: no muscle waisting NEURO: Awake; no lateralizing signs. SKIN: No Rash PSYCH; Flat affect Vitals/I&O's: Vital Signs Temp Pulse Resp BP Pulse Ox 98 F 71 18 155/69 H 96 02/16/20 02:32 02/16/20 02:32 02/16/20 02:32 02/16/20 02:32 02/16/20 02:32 Oxygen Flow Rate (L/min) 2 Oxygen Delivery Method Room Air Weight: 95.5 kg Body Mass Index (BMI) 36.2 Intake and Output for Last 24 Hours 02/14/20 02/15/20 02/16/20 23:59 23:59 23:59 Intake Total 4547.5 / 4547.5 4342.5 / 4482.5 921.25 / 921.25 Output Total 200 / 200 100 / 100 Balance 4347.5 / 4347.5 4342.5 / 4482.5 821.25 / 821.25 Microbiology Past 72 Hours 02/15/20 14:45 Stool C. difficile DNA Amplification - Final 02/13/20 20:10 Urine, Clean Catch Urine Culture - Final Mixed Gram Pos & Gram Neg Org Laboratory Results 02/15/20 07:08: WBC 11.3 H, RBC 3.40 L, Hgb 9.9 L, Hct 32.9 L, MCV 96.8, MCH 29.1, MCHC 30.1 L, RDW Std Deviation 49.1 H, RDW Coeff of Blaine 13.6, Plt Count 226, MPV 9.5, Immature Gran % (Auto) 0.600, Neut % (Auto) 85.1 H, Lymph % (Auto) 3.7 L, [place] % (Auto) 9.0, Eos % (Auto) 1.2, Baso % (Auto) 0.4, Absolute Neuts (auto) 9.6 H, Absolute Lymphs (auto) 0.42 L, Nucleated RBC % 0, Differential Comment COMMENT 02/15/20 07:08: Sodium 138, Potassium 3.3 L, Chloride 106, Carbon Dioxide 26.0, Anion Gap 6, BUN 20 H, Creatinine 0.76, Estim Creat Clear Calc 34.42, Est GFR (MDRD) Af Amer 94, Est GFR (MDRD) Non-Af 78, BUN/Creatinine Ratio 26.2 H, Glucose 87, Calcium 7.0 L, Total Bilirubin 0.40, AST 15, ALT 12 L, Alkaline Phosphatase 51, Total Protein 5.0 L, Albumin 2.3 L, Globulin 2.7, Albumin/Globulin Ratio 0.9 02/16/20 06:00: WBC 12.8 H, RBC 3.27 L, Hgb 9.5 L, Hct 31.2 L, MCV 95.4, MCH 29.1, MCHC 30.4 L, RDW Std Deviation 48.0 H, RDW Coeff of Blaine 13.6, Plt Count 239, MPV 9.7 02/16/20 06:00: Sodium 137, Potassium 3.0 L, Chloride 107, Carbon Dioxide 22.0, Anion Gap 8, BUN 13, Creatinine 0.75, Estim Creat Clear Calc 34.42, Est GFR (MDRD) Af Amer 96, Est GFR (MDRD) Non-Af 80, BUN/Creatinine Ratio 17.4, Glucose 79, Calcium 6.6 L, Magnesium 2.2 Current Medications Amlodipine Besylate (Norvasc) 2.5 mg PO DAILY [facility] Last Admin: 02/15/20 09:13 Dose: 2.5 mg Documented by: Carvedilol (Coreg) 25 mg PO BID [facility] Last Admin: 02/15/20 22:13 Dose: Not Given Documented by: Heparin Sodium (Porcine) (Heparin Na) 5,000 unit SC Q8 [facility] Last Admin: 02/16/20 05:59 Dose: 5,000 unit Documented by: Hydralazine HCl (Apresoline Iv) 10 mg IV Q4H PRN PRN PRN Reason: BLOOD PRESSURE Hydromorphone HCl (Dilaudid Inj) 0.5 mg IV Q4H PRN PRN PRN Reason: Pain Score 6-10/10 Last Admin: 02/16/20 03:38 Dose: 0.5 mg Documented by: Sodium Chloride () 1,000 mls @ 150 mls/hr IV .[id number] [facility] Last Admin: 02/16/20 03:33 Dose: 150 mls/hr Documented by: Metronidazole (Flagyl) 500 mg in 100 mls @ 100 mls/hr IV Q8 [facility] Last Infusion: 02/16/20 06:58 Dose: Infused Documented by: Sodium Chloride () 250 mls @ 15 mls/hr IV .[id number] PRN PRN Reason: Saline Flush Last Infusion: 02/16/20 06:58 Dose: 15 mls/hr Documented by: Sodium Chloride () 250 mls @ 15 mls/hr IV .[id number] PRN PRN Reason: Additional IVPB Infusion Pantoprazole Sodium 40 mg/ (Sodium Chloride) 110 mls @ 330 mls/hr IV Q12 [facility] Last Infusion: 02/15/20 22:28 Dose: Infused Documented by: Ciprofloxacin (Cipro) 400 mg in 200 mls @ 200 mls/hr IV Q12 [facility] Last Infusion: 02/15/20 23:47 Dose: Infused Documented by: Ondansetron HCl (Zofran) 4 mg IV Q8H PRN PRN PRN Reason: NAUSEA/VOMITING Last Admin: 02/15/20 20:17 Dose: 4 mg Documented [facility]: [facility] Admin: 02/15/20 09:13 Dose: 5 mg Documented by: Prochlorperazine Edisylate (Compazine Iv) 10 mg IV Q6H PRN PRN PRN Reason: Nausea/Vomiting Last Admin: 02/16/20 00:20 Dose: 10 mg Documented by: Sodium Chloride () 10 - 40 ml IV UD PRN PRN Reason: SALINE FLUSH Last Admin: 02/16/20 03:34 Dose: 10 ml Documented by: Medical Necessity - Tobacco Use Smoking Status: Former smoker Assessment/Plan All Active Problems (Last Reviewed 02/14/20 @ 12:[address] Michael Conner MD) Severe sepsis (Acute) Colitis (Acute) Cystitis (Acute) Acute respiratory failure with hypoxia (Resolved) Right lower lobe pneumonia (Acute) Sinus tachycardia by electrocardiogram (Acute) Dehydration (Resolved) Patient is a 79-year-old lady admitted with abdominal pain and assessment of sepsis secondary to acute colitis made admitted to regular nursing floor for further management 1. Acute pancolitis ?With sepsis. CT of the abdomen obtained demonstrated diffuse colonic distention from the cecum to the proximal sigmoid. Admitted to regular nursing floor with conservative management with Cipro and Flagyl fluids pain meds with consultation placed to general surgery patient has been seen in consultation by Dr. Conner ?02/16/2020: Patient seen continues to improve clinically 2. Hypokalemia ?Corrected per protocol ?02/16/2020: Patient potassium level still remains significantly low. Correction initiated 3. Acute kidney injury ?Secondary to dehydration managed with IV fluids kidney function did improve 4. Essential hypertension ?Patient blood pressure was uncontrolled at the time of admission improved with addition of hydralazine 5. Peripheral arterial disease ?With previous history of CEA and subsequent stent placement for carotid artery stenosis 6. Dyslipidemia ?Patient is on statin therapy at home; held 7. DVT prophylaxis SC heparin Advance planning; did discuss with the patient and family regarding advanced directives as well as CODE STATUS. Did explain the various scenarios involved ( FULL CODE, DNR CCA, DNR CCA with no intubation, and DNR CC and what each meant) patient elected remain full code with CPR and intubation if warranted order was placed. Time spent on discussion 18 minutes. Inpatient E&M: 66164 Subs Hosp L2 Procedures: 86604 Advncd Care Plan 30 Min
[2020-02-16] MEDS: Ondansetron 4 MG/2 ML Vial IV ×2 (07:34→19:55)
[2020-02-16] MEDS: predniSONE 5 MG Tablet PO (07:34)
[2020-02-16 07:41] VITALS: O2SAT 95
[2020-02-16] MEDS: Potassium Chloride 10mEq/100mL 10 MEQ/100 ML IV.SOLN. 100 MEQ IV BOLUS ×4 (08:05→11:37)
[2020-02-16 08:30] VITALS: BP 196/70; PULSE 74; RESP 16; TEMP 36.5; O2SAT 97
[2020-02-16] MEDS: Carvedilol 25 MG Tablet PO (09:37)
[2020-02-16] MEDS: amLODIPine 2.5 MG Tablet PO (09:37)
[2020-02-16] MEDS: Ciprofloxacin 400 MG/200 ML BAG 200 MG IV ×2 (10:18→22:49)
[2020-02-16 14:30] VITALS: BP 124/61; PULSE 70; RESP 16; TEMP 36.7; O2SAT 98
--- NOTE | 2020-02-16 15:45 | PN.SURG_ITS ---
Patient Problems: Active and Suspected Problems (Last Reviewed 02/14/20 @ 12:[address] Michael Conner MD) Severe sepsis (Acute) Colitis (Acute) Cystitis (Acute) Subjective: Patient states that she has had some bowel movements. Starting to feel better. Objective: Abdomen remains distended but no rebound guarding or peritoneal signs are identified - Physical Exam Vitals/I&O's: Vital Signs Temp Pulse Resp BP Pulse Ox 98.0 F 70 16 124/61 H 98 02/16/20 14:30 02/16/20 14:30 02/16/20 14:30 02/16/20 14:30 02/16/20 14:30 Oxygen Flow Rate (L/min) 2 Oxygen Delivery Method Room Air Weight: 210 lb 8.663 oz Body Mass Index (BMI) 36.2 Intake and Output for Last 24 Hours 02/14/20 02/15/20 02/16/20 23:59 23:59 23:59 Intake Total 4547.5 / 4547.5 4342.5 / 4482.5 3221.58 / 3221.58 Output Total 200 / 200 300 / 300 Balance 4347.5 / 4347.5 4342.5 / 4482.5 2921.58 / 2921.58 Microbiology Past 72 Hours 02/13/20 22:20 Blood Culture (Wb) - Right Forearm Blood Culture - Preliminary No growth in 48 hours. 02/13/20 19:30 Blood Culture (Wb) - Anticubital Left Blood Culture - Preliminary No growth in 48 hours. 02/15/20 14:45 Stool C. difficile DNA Amplification - Final 02/13/20 20:10 Urine, Clean Catch Urine Culture - Final Mixed Gram Pos & Gram Neg Org Laboratory Results 02/16/20 06:00: WBC 12.8 H, RBC 3.27 L, Hgb 9.5 L, Hct 31.2 L, MCV 95.4, MCH 29.1, MCHC 30.4 L, RDW Std Deviation 48.0 H, RDW Coeff of Blaine 13.6, Plt Count 239, MPV 9.7 02/16/20 06:00: Sodium 137, Potassium 3.0 L, Chloride 107, Carbon Dioxide 22.0, Anion Gap 8, BUN 13, Creatinine 0.75, Estim Creat Clear Calc 34.42, Est GFR (MDRD) Af Amer 96, Est GFR (MDRD) Non-Af 80, BUN/Creatinine Ratio 17.4, Glucose 79, Calcium 6.6 L, Magnesium 2.2 Current Medications Amlodipine Besylate (Norvasc) 2.5 mg PO DAILY [facility] Last Admin: 02/16/20 09:37 Dose: 2.5 mg Documented by: Carvedilol (Coreg) 25 mg PO BID [facility] Last Admin: 02/16/20 09:37 Dose: 25 mg Documented by: Heparin Sodium (Porcine) (Heparin Na) 5,000 unit SC Q8 [facility] Last Admin: 02/16/20 13:47 Dose: 5,000 unit Documented by: Hydralazine HCl (Apresoline Iv) 10 mg IV Q4H PRN PRN PRN Reason: BLOOD PRESSURE Hydromorphone HCl (Dilaudid Inj) 0.5 mg IV Q4H PRN PRN PRN Reason: Pain Score 6-10 Last Admin: 02/16/20 11:37 Dose: 0.5 mg Documented by: Sodium Chloride () 1,000 mls @ 150 mls/hr IV .[id number] [facility] Last Admin: 02/16/20 15:31 Dose: Not Given Documented by: Metronidazole (Flagyl) 500 mg in 100 mls @ 100 mls/hr IV Q8 [facility] Last Infusion: 02/16/20 14:42 Dose: Infused Documented by: Sodium Chloride () 250 mls @ 15 mls/hr IV .[id number] PRN PRN Reason: Saline Flush Last Infusion: 02/16/20 13:46 Dose: 0 mls/hr Documented by: Sodium Chloride () 250 mls @ 15 mls/hr IV .[id number] PRN PRN Reason: Additional IVPB Infusion Pantoprazole Sodium 40 mg/ (Sodium Chloride) 110 mls @ 330 mls/hr IV Q12 [facility] Last Infusion: 02/16/20 12:14 Dose: Infused Documented by: Ciprofloxacin (Cipro) 400 mg in 200 mls @ 200 mls/hr IV Q12 [facility] Last Infusion: 02/16/20 11:18 Dose: Infused Documented by: Ondansetron HCl (Zofran) 4 mg IV Q8H PRN PRN PRN Reason: NAUSEA/VOMITING Last Admin: 02/16/20 07:34 Dose: 4 mg Documented by: Potassium Chloride (K-Dur) 20 meq PO BIDCM [facility] Prednisone () 5 mg PO DAILYCM [facility] Last Admin: 02/16/20 07:34 Dose: 5 mg Documented by: Prochlorperazine Edisylate (Compazine Iv) 10 mg IV Q6H PRN PRN PRN Reason: Nausea/Vomiting Last Admin: 02/16/20 00:20 Dose: 10 mg Documented by: Sodium Chloride () 10 - 40 ml IV UD PRN PRN Reason: SALINE FLUSH Last Admin: 02/16/20 11:37 Dose: 10 ml Documented by: Medical Necessity - Tobacco Use Smoking Status: Former smoker Assessment/Plan All Active Problems (Last Reviewed 02/14/20 @ 12:[address] Michael Conner MD) Severe sepsis (Acute) Colitis (Acute) Cystitis (Acute) Acute respiratory failure with hypoxia (Resolved) Right lower lobe pneumonia (Acute) Sinus tachycardia by electrocardiogram (Acute) Dehydration (Resolved) Slow improvement. No surgical interventions are planned at this time. Inpatient E&M: 36471 Subs Hosp L2
[2020-02-16 21:08] VITALS: BP 109/69; PULSE 76; RESP 16; TEMP 36.8; O2SAT 95
[2020-02-17] VITALS (7 sets, daily range): BP systolic 120–158; BP diastolic 62–79; PULSE 75–80; RESP 16–18; TEMP 36.6–36.8; O2SAT 97
[2020-02-17] MEDS: HYDROmorphone 0.5 MG/0.5 ML SYRINGE IV ×4 (01:03→19:56)
[2020-02-17] MEDS: metroNIDAZOLE 500 MG/100 ML BAG 100 MG IV ×3 (05:09→22:49)
[2020-02-17] MEDS: 0.9% Normal Saline 1,000 ML 150 ML IV ×2 (05:09→16:10)
[2020-02-17] MEDS: Heparin Injection (Vial) 5,000 UNIT/ML VIAL 5000 UNIT SC ×3 (05:14→22:50)
[2020-02-17 05:41] LABS: Hematocrit 31.2 % (37-47); Hemoglobin 9.4 g/dL (12.0-15.0); Mean Corp Hgb Conc 30.1 g/dL (32-36); Mean Corpuscular Volume 96.3 fL (81-99); Mean Platelet Vol. 9.5 fl (6.2-12.0); Platelet Count 239 K/mm3 (150-450); RBC Distribution Width CV 13.8 % (11.6-14.6); RBC Distribution Width SD 49.4 fl (35.1-43.9); Red Blood Count 3.24 M/mm3 (4.2-5.4); White Blood Count 11.3 K/mm3 (4.4-11.0)
[2020-02-17 06:05] LABS: Anion Gap 7 (5-15); BUN 8 mg/dL (7-18); BUN/Creat Ratio 11.6 RATIO (10-20); Calcium,Total 6.4 mg/dL (8.5-10.1); Chloride 107 mmol/L (98-107); Creatinine, Serum 0.69 mg/dL (0.55-1.02); EST Glomerular Filtration Rate 87 mL/min (>60); Est Glom Filt Rate - Afr Amer 105 mL/min (>60); Estimated Creatinine Clearance 34.42 ml/min; Glucose 83 mg/dL (74-106); Potassium 3.4 mmol/L (3.5-5.1); Sodium Level 136 mmol/L (136-145)
[2020-02-17] MEDS: Calcium Carbonate 500 MG Tablet 1000 MG PO ×2 (06:37→16:18)
[2020-02-17] MEDS: Calcium Carb/Vitamin D 1 TABLET Tablet PO ×2 (08:52→16:18)
[2020-02-17] MEDS: predniSONE 5 MG Tablet PO (08:53)
[2020-02-17] MEDS: 0.9% Saline Lock 10 ML Syringe IV ×4 (09:30→16:07)
[2020-02-17] MEDS: Ciprofloxacin 400 MG/200 ML BAG 200 MG IV ×2 (09:34→21:40)
[2020-02-17] MEDS: Carvedilol 25 MG Tablet PO ×2 (09:36→22:50)
[2020-02-17] MEDS: amLODIPine 2.5 MG Tablet PO (09:36)
--- NOTE | 2020-02-17 10:25 | PN_ITS ---
Patient Problems: Active and Suspected Problems (Last Reviewed 02/14/20 @ 12:[address] Michael Conner MD) Severe sepsis (Acute) Colitis (Acute) Cystitis (Acute) Reason for Visit: Acute colitis Subjective: Patient seen admits to some improvement. Still has abdominal discomfort. Patient also has significant electrolyte abnormalities including hypocalcemia as well as hypokalemia. Repeat imaging studies ordered for subsequent evaluation. Her electrolyte abnormalities corrected per protocol Objective: GENERAL: cooperative HEENT: Atraumatic; EYES; Anicteric, Normal Conjunctiva NECK; supple, normal thyroid, RESPIRATORY: Diminished to auscultation CARDIOVASCULAR: Regular S1 S2, GI: Abdomen distended : No Renal angle tenderness; EXTREMITIES: No edema, no clubbing, MUSCULOSKELETAL: no muscle waisting NEURO: Awake; no lateralizing signs. SKIN: No Rash PSYCH; Flat affect Vitals/I&O's: Vital Signs Temp Pulse Resp BP Pulse Ox 98.0 F 78 16 120/75 97 02/17/20 08:45 02/17/20 08:45 02/17/20 08:45 02/17/20 08:45 02/17/20 08:45 Oxygen Flow Rate (L/min) 2 Oxygen Delivery Method Room Air Weight: 94.5 kg Body Mass Index (BMI) 36.2 Intake and Output for Last 24 Hours 02/15/20 02/16/20 02/17/20 23:59 23:59 23:59 Intake Total 4342.5 / 4482.5 4274.08 / 4474.08 1837.5 / 1837.5 Output Total 600 / 600 Balance 4342.5 / 4482.5 3674.08 / 3874.08 1837.5 / 1837.5 Microbiology Past 72 Hours 02/13/20 22:20 Blood Culture (Wb) - Right Forearm Blood Culture - Preliminary No growth in 48 hours. 02/13/20 19:30 Blood Culture (Wb) - Anticubital Left Blood Culture - Preliminary No growth in 48 hours. 02/15/20 14:45 Stool C. difficile DNA Amplification - Final 02/13/20 20:10 Urine, Clean Catch Urine Culture - Final Mixed Gram Pos & Gram Neg Org Laboratory Results 02/17/20 05:30: WBC 11.3 H, RBC 3.24 L, Hgb 9.4 L, Hct 31.2 L, MCV 96.3, MCH 29.0, MCHC 30.1 L, RDW Std Deviation 49.4 H, RDW Coeff of Blaine 13.8, Plt Count 239, MPV 9.5 02/17/20 05:30: Sodium 136, Potassium 3.4 L, Chloride 107, Carbon Dioxide 22.0, Anion Gap 7, BUN 8, Creatinine 0.69, Estim Creat Clear Calc 34.42, Est GFR (MDRD) Af Amer 105, Est GFR (MDRD) Non-Af 87, BUN/Creatinine Ratio 11.6, Glucose 83, Calcium 6.4 L* 02/17/20 06:45: Ionized Calcium Pending Current Medications Amlodipine Besylate (Norvasc) 2.5 mg PO DAILY [facility] Last Admin: 02/17/20 09:36 Dose: 2.5 mg Documented by: [facility] Last Admin: 02/17/20 07:10 Dose: Not Given Documented by: Calcium/Vitamin D (Os-Glenroy 500mg + D) [facility] Last Admin: 02/17/20 08:52 Dose: 1 tablet Documented by: Carvedilol (Coreg) 25 mg PO BID [facility] Last Admin: 02/17/20 09:36 Dose: 25 mg Documented by: Heparin Sodium (Porcine) (Heparin Na) 5,000 unit SC Q8 [facility] Last Admin: 02/17/20 05:14 Dose: 5,000 unit Documented by: Hydralazine HCl (Apresoline Iv) 10 mg IV Q4H PRN PRN PRN Reason: BLOOD PRESSURE Hydromorphone HCl (Dilaudid Inj) 0.5 mg IV Q4H PRN PRN PRN Reason: Pain Score 6-10/10 Last Admin: 02/17/20 09:30 Dose: 0.5 mg Documented by: Sodium Chloride () 1,000 mls @ 150 mls/hr IV .Q6H40M [facility] Last Infusion: 02/17/20 09:37 Dose: 0 mls/hr Documented by: Metronidazole (Flagyl) 500 mg in 100 mls @ 100 mls/hr IV Q8 [facility] Last Infusion: 02/17/20 06:30 Dose: Infused Documented by: Sodium Chloride () 250 mls @ 15 mls/hr IV .[id number] PRN PRN Reason: Saline Flush Last Infusion: 02/16/20 13:46 Dose: 0 mls/hr Documented by: Sodium Chloride () 250 mls @ 15 mls/hr IV .[id number] PRN PRN Reason: Additional IVPB Infusion Pantoprazole Sodium 40 mg/ (Sodium Chloride) 110 mls @ 330 mls/hr IV Q12 [facility] Last Infusion: 02/16/20 21:35 Dose: Infused Documented by: Ciprofloxacin (Cipro) 400 mg in 200 mls @ 200 mls/hr IV Q12 [facility] Last Admin: 02/17/20 09:34 Dose: 200 mls/hr Documented by: Ondansetron HCl (Zofran) 4 mg IV Q8H PRN PRN PRN Reason: NAUSEA/VOMITING Last Admin: 02/16/20 19:55 Dose: 4 mg Documented by: Potassium Chloride (K-Dur) [facility] Last Admin: 02/17/20 08:52 Dose: 20 meq Documented by: Prednisone () [facility] Last Admin: 02/17/20 08:53 Dose: 5 mg Documented by: Prochlorperazine Edisylate (Compazine Iv) 10 mg IV Q6H PRN PRN PRN Reason: Nausea/Vomiting Last Admin: 02/16/20 00:20 Dose: 10 mg Documented by: Sodium Chloride () 10 - 40 ml IV UD PRN PRN Reason: SALINE FLUSH Last Admin: 02/17/20 09:30 Dose: 10 ml Documented by: STROKE Vital Signs/Narrative: Vital Signs Temp Pulse Resp BP Pulse Ox 02/17/20 08:45 98.0 F 78 16 120/75 97 02/17/20 07:20 97 Medical Necessity - Tobacco Use Smoking Status: Former smoker Assessment/Plan All Active Problems (Last Reviewed 02/14/20 @ 12:[address] Michael Conner MD) Severe sepsis (Acute) Colitis (Acute) Cystitis (Acute) Acute respiratory failure with hypoxia (Resolved) Right lower lobe pneumonia (Acute) Sinus tachycardia by electrocardiogram (Acute) Dehydration (Resolved) Patient is a 79-year-old lady admitted with abdominal pain and assessment of sepsis secondary to acute colitis made admitted to regular nursing floor for further management 1. Acute pancolitis ?With sepsis. CT of the abdomen obtained demonstrated diffuse colonic distention from the cecum to the proximal sigmoid. Admitted to regular nursing floor with conservative management with Cipro and Flagyl fluids pain meds with consultation placed to general surgery patient has been seen in consultation by Dr. Conner ?02/16/2020: Patient seen continues to improve clinically -02/17/2020. Repeat imaging studies CT of the abdomen and pelvis with contrast ordered for subsequent evaluation 2. Hypokalemia ?Corrected per protocol ?02/16/2020: Patient potassium level still remains significantly low. Correction initiated 3. Acute kidney injury ?Secondary to dehydration managed with IV fluids kidney function did improve 4. Essential hypertension ?Patient blood pressure was uncontrolled at the time of admission improved with addition of hydralazine 5. Peripheral arterial disease ?With previous history of CEA and subsequent stent placement for carotid artery stenosis 6. Dyslipidemia ?Patient is on statin therapy at home; held 7. DVT prophylaxis SC heparin 8. Hypocalcemia ?Corrected per protocol Inpatient E&M: 62549 [facility] Hosp L2
--- NOTE | 2020-02-17 10:27 | CT_ITS ---
STUDY: CT ABDOMEN AND PELVIS WITH CONTRAST REASON FOR EXAM: Female, 79 years old. PANCOLITIS, ABD PAIN RADIATION DOSAGE (If Supplied By Facility): CTDIvol = ( 21.76 ) mGy, DLP = ( 1600.43 ) mGycm TECHNIQUE: Transaxial images were obtained from the dome of the diaphragm to the symphysis pubis with oral contrast. Oral and amp; IV Gastrografin and amp; 100mL Isovue-300 was administered. Sagittal and coronal images were reconstructed. Individualized dose optimization techniques were used for this CT. COMPARISON: Comparison is made with prior study dated 02/13/2020. FINDINGS: Stable minimal increase in markings at the lung bases. Small bilateral pleural effusions. Coronary artery and valvular calcifications. Perihepatic fluid. The patient is status post cholecystectomy. Normal spleen. Normal pancreas. Normal bilateral adrenal glands. Stable right renal cysts. Stable left renal cysts. The largest measures 4.5 cm and is in the upper pole. There is a small hiatal hernia. Normal small intestine. Mild degree of the colonic distention with fluid. This has improved as compared to prior study. There is non-visualization of the appendix. There is diffuse atherosclerotic calcification of the abdominal aorta, without a demonstrated aneurysm. Normal inferior vena cava. Normal retroperitoneum. Nonspecific increased markings in the peritoneal fat as well as bilateral perinephric stranding. Minimal amount of fluid is seen in the root of the mesentery as well as in the pelvis. Normal urinary bladder. There is absence of the uterus consistent with a prior hysterectomy. Normal abdominal wall. There are diffuse degenerative changes of the visualized lumbar spine. Stable levoscoliosis. Prior left total hip replacement. CT/Abdomen/Pelvis WITH Contrast IMPRESSION: Since prior study, there has been improvement in gaseous distention of the colon with improvement of the pericolonic thickening. Small bilateral pleural effusions with bibasilar atelectasis. Small amount of perihepatic fluid which is new as compared to prior study. Electronically Signed: Pradip Davison, at 14:01 EDT , Service support ,
--- NOTE | 2020-02-17 15:46 | PCM.PN.SRG ---
Patient Problems: Active and Suspected Problems (Last Reviewed 02/14/20 @ 12:[address] Michael Conner MD) Severe sepsis (Acute) Colitis (Acute) Cystitis (Acute) Subjective: Patient states that subjectively she does feel somewhat better. She still has some abdominal discomfort but it is not as bad as it was when she was admitted. She has had several bowel movements but she still remains distended. Objective: Positive abdominal distention. No obvious peritoneal signs are identified. She does have bowel sounds. - Physical Exam Vitals/I&O's: Vital Signs Temp Pulse Resp BP Pulse Ox 98.3 F 79 16 158/68 H 97 02/17/20 14:13 02/17/20 14:13 02/17/20 14:13 02/17/20 14:13 02/17/20 14:13 Oxygen Flow Rate (L/min) 2 Oxygen Delivery Method Room Air Weight: 208 lb 5.389 oz Body Mass Index (BMI) 36.2 Intake and Output for Last 24 Hours 02/15/20 02/16/20 02/17/20 23:59 23:59 23:59 Intake Total 4342.5 / 4482.5 4274.08 / 4474.08 2990.5 / 2990.5 Output Total 600 / 600 Balance 4342.5 / 4482.5 3674.08 / 3874.08 2990.5 / 2990.5 Microbiology Past 72 Hours 02/13/20 22:20 Blood Culture (Wb) - Right Forearm Blood Culture - Preliminary No growth in 48 hours. 02/13/20 19:30 Blood Culture (Wb) - Anticubital Left Blood Culture - Preliminary No growth in 48 hours. 02/15/20 14:45 Stool C. difficile DNA Amplification - Final 02/13/20 20:10 Urine, Clean Catch Urine Culture - Final Mixed Gram Pos & Gram Neg Org Laboratory Results 02/17/20 05:30: WBC 11.3 H, RBC 3.24 L, Hgb 9.4 L, Hct 31.2 L, MCV 96.3, MCH 29.0, MCHC 30.1 L, RDW Std Deviation 49.4 H, RDW Coeff of Blaine 13.8, Plt Count 239, MPV 9.5 02/17/20 05:30: Sodium 136, Potassium 3.4 L, Chloride 107, Carbon Dioxide 22.0, Anion Gap 7, BUN 8, Creatinine 0.69, Estim Creat Clear Calc 34.42, Est GFR (MDRD) Af Amer 105, Est GFR (MDRD) Non-Af 87, BUN/Creatinine Ratio 11.6, Glucose 83, Calcium 6.4 L* 02/17/20 06:45: Ionized Calcium Pending Current Medications Amlodipine Besylate (Norvasc) 2.5 mg PO DAILY [facility] Last Admin: 02/17/20 09:36 Dose: 2.5 mg Documented by: Cal[facility] ([facility] Last Admin: 02/17/20 07:10 Dose: Not Given Documented by: Calcium/Vitamin D (Os-Glenroy 500mg + D) [facility] Last Admin: 02/17/20 08:52 Dose: 1 tablet Documented by: Carvedilol (Coreg) 25 mg PO BID [facility] Last Admin: 02/17/20 09:36 Dose: 25 mg Documented by: Heparin Sodium (Porcine) (Heparin Na) 5,000 unit SC Q8 [facility] Last Admin: 02/17/20 13:52 Dose: 5,000 unit Documented by: Hydralazine HCl (Apresoline Iv) 10 mg IV Q4H PRN PRN PRN Reason: BLOOD PRESSURE Hydromorphone HCl (Dilaudid Inj) 0.5 mg IV Q4H PRN PRN PRN Reason: Pain Score 6-10/10 Last Admin: 02/17/20 09:30 Dose: 0.5 mg Documented by: Sodium Chloride () 1,000 mls @ 150 mls/hr IV .Q6H40M [facility] Last Infusion: 02/17/20 14:50 Dose: 150 mls/hr Documented by: Metronidazole (Flagyl) 500 mg in 100 mls @ 100 mls/hr IV Q8 [facility] Last Infusion: 02/17/20 14:50 Dose: Infused Documented by: Sodium Chloride () 250 mls @ 15 mls/hr IV .[id number] PRN PRN Reason: Saline Flush Last Infusion: 02/16/20 13:46 Dose: 0 mls/hr Documented by: Sodium Chloride () 250 mls @ 15 mls/hr IV .[id number] PRN PRN Reason: Additional IVPB Infusion Pantoprazole Sodium 40 mg/ (Sodium Chloride) 110 mls @ 330 mls/hr IV Q12 [facility] Last Infusion: 02/17/20 11:43 Dose: Infused Documented by: Ciprofloxacin (Cipro) 400 mg in 200 mls @ 200 mls/hr IV Q12 [facility] Last Infusion: 02/17/20 10:34 Dose: Infused Documented by: Ondansetron HCl (Zofran) 4 mg IV Q8H PRN PRN PRN Reason: NAUSEA/VOMITING Last Admin: 02/16/20 19:55 Dose: 4 mg Documented by: Potassium Chloride (K-Dur) [facility] Last Admin: 02/17/20 08:52 Dose: 20 meq Documented by: Prednisone () [facility] Last Admin: 02/17/20 08:53 Dose: 5 mg Documented by: Prochlorperazine Edisylate (Compazine Iv) 10 mg IV Q6H PRN PRN PRN Reason: Nausea/Vomiting Last Admin: 02/16/20 00:20 Dose: 10 mg Documented by: Sodium Chloride () 10 - 40 ml IV UD PRN PRN Reason: SALINE FLUSH Last Admin: 02/17/20 13:47 Dose: 10 ml Documented by: Medical Necessity - Tobacco Use Smoking Status: Former smoker Assessment/Plan All Active Problems (Last Reviewed 02/14/20 @ 12:[address] Michael Conner MD) Severe sepsis (Acute) Colitis (Acute) Cystitis (Acute) Acute respiratory failure with hypoxia (Resolved) Right lower lobe pneumonia (Acute) Sinus tachycardia by electrocardiogram (Acute) Dehydration (Resolved) CAT scan was obtained today which shows some slight improvement. Sigmoid colon still looks significantly thickened and at the present time I think conservative management is still the appropriate thing to do. Inpatient E&M: 32539 Subs Hosp L2
[2020-02-17] MEDS: proCHLORPERazine 10 MG/2 ML Vial IV (16:08)
[2020-02-18] VITALS (8 sets, daily range): BP systolic 120–191; BP diastolic 64–90; PULSE 73–80; RESP 18; TEMP 36.7–36.8; O2SAT 96–97
[2020-02-18] MEDS: HYDROmorphone 0.5 MG/0.5 ML SYRINGE IV ×3 (01:01→18:22)
[2020-02-18] MEDS: 0.9% Normal Saline 1,000 ML 150 ML IV ×3 (01:01→22:51)
[2020-02-18] MEDS: Heparin Injection (Vial) 5,000 UNIT/ML VIAL 5000 UNIT SC ×3 (05:56→22:21)
[2020-02-18] MEDS: metroNIDAZOLE 500 MG/100 ML BAG 100 MG IV ×3 (05:56→22:54)
[2020-02-18 07:12] LABS: Hematocrit 30.8 % (37-47); Hemoglobin 9.6 g/dL (12.0-15.0); Mean Corp Hgb Conc 31.2 g/dL (32-36); Mean Corpuscular Hgb 29.8 pg (27.0-32.0); Mean Corpuscular Volume 95.7 fL (81-99); Mean Platelet Vol. 10.2 fl (6.2-12.0); Platelet Count 223 K/mm3 (150-450); RBC Distribution Width CV 14.3 % (11.6-14.6); RBC Distribution Width SD 49.6 fl (35.1-43.9); Red Blood Count 3.22 M/mm3 (4.2-5.4)
--- NOTE | 2020-02-18 07:31 | PN_ITS ---
Patient Problems: Active and Suspected Problems (Last Reviewed 02/14/20 @ 12:[address] Michael Conner MD) Severe sepsis (Acute) Colitis (Acute) Cystitis (Acute) Reason for Visit: Acute colitis Subjective: Patient overall clinical condition continues to improve. CT of the abdomen obtained the day prior demonstrated improvement in gaseous distention of the colon with improvement of the pericolonic thickening. Patient is however having loose bowel movement this a.m. Objective: GENERAL: cooperative HEENT: Atraumatic; EYES; Anicteric, Normal Conjunctiva NECK; supple, normal thyroid, RESPIRATORY: Diminished to auscultation CARDIOVASCULAR: Regular S1 S2, GI: Abdomen distended : No Renal angle tenderness; EXTREMITIES: No edema, no clubbing, MUSCULOSKELETAL: no muscle waisting NEURO: Awake; no lateralizing signs. SKIN: No Rash PSYCH; Flat affect Vitals/I&O's: Vital Signs Temp Pulse Resp BP Pulse Ox 98.2 F 78 18 120/80 96 02/18/20 02:06 02/18/20 02:06 02/18/20 02:06 02/18/20 02:06 02/18/20 02:06 Oxygen Flow Rate (L/min) 2 Oxygen Delivery Method Room Air Weight: 99.3 kg Body Mass Index (BMI) 36.2 Intake and Output for Last 24 Hours 02/16/20 02/17/20 02/18/20 23:59 23:59 23:59 Intake Total 4274.08 / 4474.08 4428.0 / 4428.0 917.5 / 917.5 Output Total 600 / 600 Balance 3674.08 / 3874.08 4428.0 / 4428.0 917.5 / 917.5 Microbiology Past 72 Hours 02/13/20 22:20 Blood Culture (Wb) - Right Forearm Blood Culture - Preliminary No growth in 48 hours. 02/13/20 19:30 Blood Culture (Wb) - Anticubital Left Blood Culture - Preliminary No growth in 48 hours. 02/15/20 14:45 Stool C. difficile DNA Amplification - Final 02/13/20 20:10 Urine, Clean Catch Urine Culture - Final Mixed Gram Pos & Gram Neg Org Laboratory Results 02/17/20 06:45: Ionized Calcium Pending 02/18/20 06:40: WBC 9.0, RBC 3.22 L, Hgb 9.6 L, Hct 30.8 L, MCV 95.7, MCH 29.8, MCHC 31.2 L, RDW Std Deviation 49.6 H, RDW Coeff of Blaine 14.3, Plt Count 223, MPV 10.2 02/18/20 06:40: Sodium Pending, Potassium Pending, Chloride Pending, Carbon Dioxide Pending, Anion Gap Pending, BUN Pending, Creatinine Pending, Est GFR (MDRD) Af Amer Pending, Est GFR (MDRD) Non-Af Pending, BUN/Creatinine Ratio Pending, Glucose Pending, Calcium Pending Current Medications Amlodipine Besylate (Norvasc) 2.5 mg PO DAILY [facility] Last Admin: 02/17/20 09:36 Dose: 2.5 mg Documented by: [facility] Last Admin: 02/17/20 16:18 Dose: 1,000 mg Documented by: Calcium/Vitamin D (Os-Glenroy 500mg + D) [facility] Last Admin: 02/17/20 16:18 Dose: 1 tablet Documented by: Carvedilol (Coreg) 25 mg PO BID [facility] Last Admin: 02/17/20 22:50 Dose: 25 mg Documented by: Heparin Sodium (Porcine) (Heparin Na) 5,000 unit SC Q8 [facility] Last Admin: 02/18/20 05:56 Dose: 5,000 unit Documented by: Hydralazine HCl (Apresoline Iv) 10 mg IV Q4H PRN PRN PRN Reason: BLOOD PRESSURE Hydromorphone HCl (Dilaudid Inj) 0.5 mg IV Q4H PRN PRN PRN Reason: Pain Score 6-10/10 Last Admin: 02/18/20 01:01 Dose: 0.5 mg Documented by: Sodium Chloride () 1,000 mls @ 150 mls/hr IV .Q6H40M [facility] Last Infusion: 02/18/20 05:59 Dose: 0 mls/hr Documented by: Metronidazole (Flagyl) 500 mg in 100 mls @ 100 mls/hr IV Q8 [facility] Last Admin: 02/18/20 05:56 Dose: 100 mls/hr Documented by: Sodium Chloride () 250 mls @ 15 mls/hr IV .[id number] PRN PRN Reason: Saline Flush Last Infusion: 02/16/20 13:46 Dose: 0 mls/hr Documented by: Sodium Chloride () 250 mls @ 15 mls/hr IV .[id number] PRN PRN Reason: Additional IVPB Infusion Pantoprazole Sodium 40 mg/ (Sodium Chloride) 110 mls @ 330 mls/hr IV Q12 [facility] Last Infusion: 02/17/20 21:34 Dose: Infused Documented by: Ciprofloxacin (Cipro) 400 mg in 200 mls @ 200 mls/hr IV Q12 [facility] Last Infusion: 02/17/20 22:41 Dose: Infused Documented by: Ondansetron HCl (Zofran) 4 mg IV Q8H PRN PRN PRN Reason: NAUSEA/VOMITING Last Admin: 02/16/20 19:55 Dose: 4 mg Documented by: Potassium Chloride (K-Dur) [facility] Last Admin: 02/17/20 16:18 Dose: 20 meq Documented by: Prednisone () [facility] Last Admin: 02/17/20 08:53 Dose: 5 mg Documented by: Prochlorperazine Edisylate (Compazine Iv) 10 mg IV Q6H PRN PRN PRN Reason: Nausea/Vomiting Last Admin: 02/17/20 16:08 Dose: 10 mg Documented by: Sodium Chloride () 10 - 40 ml IV UD PRN PRN Reason: SALINE FLUSH Last Admin: 02/17/20 16:07 Dose: 10 ml Documented by: Medical Necessity - Tobacco Use Smoking Status: Former smoker Assessment/Plan All Active Problems (Last Reviewed 02/14/20 @ 12:[address] Michael Conner MD) Severe sepsis (Acute) Colitis (Acute) Cystitis (Acute) Acute respiratory failure with hypoxia (Resolved) Right lower lobe pneumonia (Acute) Sinus tachycardia by electrocardiogram (Acute) Dehydration (Resolved) Patient is a 79-year-old lady admitted with abdominal pain and assessment of sepsis secondary to acute colitis made admitted to regular nursing floor for further management 1. Acute pancolitis ?With sepsis. CT of the abdomen obtained demonstrated diffuse colonic distention from the cecum to the proximal sigmoid. Admitted to regular nursing floor with conservative management with Cipro and Flagyl fluids pain meds with consultation placed to general surgery patient has been seen in consultation by Dr. Conner ?02/16/2020: Patient seen continues to improve clinically -02/17/2020. Repeat imaging studies CT of the abdomen and pelvis with contrast ordered for subsequent evaluation ?02/18/2020; Patient overall clinical condition continues to improve. CT of the abdomen obtained the day prior demonstrated improvement in gaseous distention of the colon with improvement of the pericolonic thickening. Patient is however having loose bowel movement this a.m. this was discussed with Dr. Conner with general surgery 2. Hypokalemia ?Corrected per protocol ?02/16/2020: Patient potassium level still remains significantly low. Correction initiated 3. Acute kidney injury ?Secondary to dehydration managed with IV fluids kidney function did improve 4. Essential hypertension ?Patient blood pressure was uncontrolled at the time of admission improved with addition of hydralazine 5. Peripheral arterial disease ?With previous history of CEA and subsequent stent placement for carotid artery stenosis 6. Dyslipidemia ?Patient is on statin therapy at home; held 7. DVT prophylaxis SC heparin 8. Hypocalcemia ?Corrected per protocol Clinical Impression(s) from Imaging Studies Abdomen/Pelvis CT 02/17/20 10:27 IMPRESSION: Since prior study, there has been improvement in gaseous distention of the colon with improvement of the pericolonic thickening. Small bilateral pleural effusions with bibasilar atelectasis. Small amount of perihepatic fluid which is new as compared to prior study. Electronically Signed: Pradip Davison, at 14:01 EDT , Service support , Inpatient E&M: [id number] [facility] Hosp L2
[2020-02-18 08:02] LABS: Anion Gap 9 (5-15); BUN 6 mg/dL (7-18); BUN/Creat Ratio 8.8 RATIO (10-20); Chloride 108 mmol/L (98-107); Creatinine, Serum 0.68 mg/dL (0.55-1.02); EST Glomerular Filtration Rate 89 mL/min (>60); Est Glom Filt Rate - Afr Amer 107 mL/min (>60); Estimated Creatinine Clearance 34.42 ml/min; Glucose 77 mg/dL (74-106); Potassium 3.6 mmol/L (3.5-5.1); Sodium Level 138 mmol/L (136-145)
--- NOTE | 2020-02-18 08:55 | PCM.PN.SRG ---
Patient Problems: Active and Suspected Problems (Last Reviewed 02/14/20 @ 12:[address] Michael Conner MD) Severe sepsis (Acute) Colitis (Acute) Cystitis (Acute) Subjective: Patient is continuing to feel slightly better. Not ready for discharge yet. Objective: Abdomen is still distended but far less tense and no rebound guarding or peritoneal signs. - Physical Exam Vitals/I&O's: Vital Signs Temp Pulse Resp BP Pulse Ox 98.1 F 78 18 121/70 H 96 02/18/20 08:00 02/18/20 08:00 02/18/20 08:00 02/18/20 08:00 02/18/20 08:00 Oxygen Flow Rate (L/min) 2 Oxygen Delivery Method Room Air Weight: 218 lb 14.704 oz Body Mass Index (BMI) 36.2 Intake and Output for Last 24 Hours 02/16/20 02/17/20 02/18/20 23:59 23:59 23:59 Intake Total 4274.08 / 4474.08 4428.0 / 4428.0 917.5 / 917.5 Output Total 600 / 600 Balance 3674.08 / 3874.08 4428.0 / 4428.0 917.5 / 917.5 Microbiology Past 72 Hours 02/13/20 22:20 Blood Culture (Wb) - Right Forearm Blood Culture - Preliminary No growth in 48 hours. 02/13/20 19:30 Blood Culture (Wb) - Anticubital Left Blood Culture - Preliminary No growth in 48 hours. 02/15/20 14:45 Stool C. difficile DNA Amplification - Final 02/13/20 20:10 Urine, Clean Catch Urine Culture - Final Mixed Gram Pos & Gram Neg Org Laboratory Results 02/18/20 06:40: WBC 9.0, RBC 3.22 L, Hgb 9.6 L, Hct 30.8 L, MCV 95.7, MCH 29.8, MCHC 31.2 L, RDW Std Deviation 49.6 H, RDW Coeff of Blaine 14.3, Plt Count 223, MPV 10.2 02/18/20 06:40: Sodium 138, Potassium 3.6, Chloride 108 H, Carbon Dioxide 21.0, Anion Gap 9, BUN 6 L, Creatinine 0.68, Estim Creat Clear Calc 34.42, Est GFR (MDRD) Af Amer 107, Est GFR (MDRD) Non-Af 89, BUN/Creatinine Ratio 8.8 L, Glucose 77, Calcium 7.0 L Current Medications Amlodipine Besylate (Norvasc) 2.5 mg PO DAILY [facility] Last Admin: 02/17/20 09:36 Dose: 2.5 mg Documented by: Calcium [facility] ([facility]) [facility] Last Admin: 02/17/20 16:18 Dose: 1,000 mg Documented by: Calcium/Vitamin D (Os-Glenroy 500mg + D) [facility] Last Admin: 02/17/20 16:18 Dose: 1 tablet Documented by: Carvedilol (Coreg) 25 mg PO BID [facility] Last Admin: 02/17/20 22:50 Dose: 25 mg Documented by: Heparin Sodium (Porcine) (Heparin Na) 5,000 unit SC Q8 [facility] Last Admin: 02/18/20 05:56 Dose: 5,000 unit Documented by: Hydralazine HCl (Apresoline Iv) 10 mg IV Q4H PRN PRN PRN Reason: BLOOD PRESSURE Hydromorphone HCl (Dilaudid Inj) 0.5 mg IV Q4H PRN PRN PRN Reason: Pain Score 6-10/10 Last Admin: 02/18/20 07:55 Dose: 0.5 mg Documented by: Sodium Chloride () 1,000 mls @ 150 mls/hr IV .[id number] [facility] Last Infusion: 02/18/20 05:59 Dose: 0 mls/hr Documented by: Metronidazole (Flagyl) 500 mg in 100 mls @ 100 mls/hr IV Q8 [facility] Last Admin: 02/18/20 05:56 Dose: 100 mls/hr Documented by: Sodium Chloride () 250 mls @ 15 mls/hr IV .[id number] PRN PRN Reason: Saline Flush Last Infusion: 02/16/20 13:46 Dose: 0 mls/hr Documented by: Sodium Chloride () 250 mls @ 15 mls/hr IV .[id number] PRN PRN Reason: Additional IVPB Infusion Pantoprazole Sodium 40 mg/ (Sodium Chloride) 110 mls @ 330 mls/hr IV Q12 [facility] Last Infusion: 02/17/20 21:34 Dose: Infused Documented by: Ciprofloxacin (Cipro) 400 mg in 200 mls @ 200 mls/hr IV Q12 [facility] Last Infusion: 02/17/20 22:41 Dose: Infused Documented by: Ondansetron HCl (Zofran) 4 mg IV Q8H PRN PRN PRN Reason: NAUSEA/VOMITING Last Admin: 02/16/20 19:55 Dose: 4 mg Documented by: Potassium Chloride (K-Dur) [facility] Last Admin: 02/17/20 16:18 Dose: 20 meq Documented by: Prednisone () [facility] Last Admin: 02/17/20 08:53 Dose: 5 mg Documented by: Prochlorperazine Edisylate (Compazine Iv) 10 mg IV Q6H PRN PRN PRN Reason: Nausea/Vomiting Last Admin: 02/17/20 16:08 Dose: 10 mg Documented by: Sodium Chloride () 10 - 40 ml IV UD PRN PRN Reason: SALINE FLUSH Last Admin: 02/17/20 16:07 Dose: 10 ml Documented by: Medical Necessity - Tobacco Use Smoking Status: Former smoker Assessment/Plan All Active Problems (Last Reviewed 02/14/20 @ 12:[address] Michael Conner MD) Severe sepsis (Acute) Colitis (Acute) Cystitis (Acute) Acute respiratory failure with hypoxia (Resolved) Right lower lobe pneumonia (Acute) Sinus tachycardia by electrocardiogram (Acute) Dehydration (Resolved) Continue with conservative measurements. Probably be able to be discharged in another day or 2. Inpatient E&M: 61337 Subs Hosp L2
[2020-02-18] MEDS: Ciprofloxacin 400 MG/200 ML BAG 200 MG IV ×2 (09:58→21:09)
[2020-02-18] MEDS: Calcium Carbonate 500 MG Tablet 1000 MG PO ×2 (10:00→18:21)
[2020-02-18] MEDS: Calcium Carb/Vitamin D 1 TABLET Tablet PO (10:01)
[2020-02-18] MEDS: predniSONE 5 MG Tablet PO (10:02)
[2020-02-18] MEDS: Carvedilol 25 MG Tablet PO ×2 (10:03→21:20)
[2020-02-18] MEDS: amLODIPine 2.5 MG Tablet PO (10:03)
--- NOTE | 2020-02-18 21:22 | NURSING ---
bp is 184/90. pt refusing hydralazine at this time. pt states coreg drops her blood pressure. scheduled coreg given. will reassess bp in about an hour.
[2020-02-18] MEDS: hydrALAZINE 20 MG/ML Vial 10 MG IV (23:06)
[2020-02-18] MEDS: 0.9% Saline Lock 10 ML Syringe IV (23:06)
[2020-02-19] VITALS (7 sets, daily range): BP systolic 147–183; BP diastolic 48–95; PULSE 78–88; RESP 18; TEMP 36.7–36.8; O2SAT 98–100
[2020-02-19] MEDS: metroNIDAZOLE 500 MG/100 ML BAG 100 MG IV ×3 (06:19→21:52)
[2020-02-19] MEDS: 0.9% Normal Saline 1,000 ML 150 ML IV ×3 (06:19→20:25)
[2020-02-19] MEDS: Heparin Injection (Vial) 5,000 UNIT/ML VIAL 5000 UNIT SC ×3 (06:22→22:13)
[2020-02-19 08:44] LABS: Hematocrit 31.5 % (37-47); Hemoglobin 10.1 g/dL (12.0-15.0); Mean Corp Hgb Conc 32.1 g/dL (32-36); Mean Corpuscular Hgb 29.9 pg (27.0-32.0); Mean Corpuscular Volume 93.2 fL (81-99); Platelet Count 243 K/mm3 (150-450); RBC Distribution Width CV 14.3 % (11.6-14.6); RBC Distribution Width SD 48.6 fl (35.1-43.9); Red Blood Count 3.38 M/mm3 (4.2-5.4); White Blood Count 8.6 K/mm3 (4.4-11.0)
--- NOTE | 2020-02-19 09:00 | PCM.PN.HOSP ---
Patient Problems: Active and Suspected Problems (Last Reviewed 02/14/20 @ 12:[address] Michael Conner MD) Severe sepsis (Acute) Colitis (Acute) Cystitis (Acute) Reason for Visit: Acute colitis Subjective: Plan for patient to be discharged home today discontinued. Patient was reported to have had frequent diarrhea going about 10 times during the night. Seen this a.m. Patient complains of feeling tired. Objective: GENERAL: cooperative HEENT: Atraumatic; EYES; Anicteric, Normal Conjunctiva NECK; supple, normal thyroid, RESPIRATORY: Diminished to auscultation CARDIOVASCULAR: Regular S1 S2, GI: Abdomen distended : No Renal angle tenderness; EXTREMITIES: No edema, no clubbing, MUSCULOSKELETAL: no muscle waisting NEURO: Awake; no lateralizing signs. SKIN: No Rash PSYCH; Flat affect Vitals/I&O's: Vital Signs Temp Pulse Resp BP Pulse Ox 98.1 F 82 18 159/94 H 100 02/19/20 04:13 02/19/20 04:13 02/19/20 04:13 02/19/20 04:13 02/19/20 04:13 Oxygen Flow Rate (L/min) 2 Oxygen Delivery Method Room Air Weight: 99.1 kg Body Mass Index (BMI) 36.2 Intake and Output for Last 24 Hours 02/17/20 02/18/20 02/19/20 23:59 23:59 23:59 Intake Total 4428.0 / 4428.0 3497.5 / 3497.5 1165.0 / 1165.0 Output Total 100 / 100 Balance 4428.0 / 4428.0 3497.5 / 3497.5 1065.0 / 1065.0 Microbiology Past 72 Hours 02/13/20 22:20 Blood Culture (Wb) - Right Forearm Blood Culture - Preliminary No growth in 48 hours. 02/13/20 19:30 Blood Culture (Wb) - Anticubital Left Blood Culture - Preliminary No growth in 48 hours. Laboratory Results 02/17/20 06:45: Ionized Calcium 3.7 L 02/19/20 08:20: WBC 8.6, RBC 3.38 L, Hgb 10.1 L, Hct 31.5 L, MCV 93.2, MCH 29.9, MCHC 32.1, RDW Std Deviation 48.6 H, RDW Coeff of Blaine 14.3, Plt Count 243, MPV 10.0 02/19/20 08:20: Sodium Pending, Potassium Pending, Chloride Pending, Carbon Dioxide Pending, Anion Gap Pending, BUN Pending, Creatinine Pending, Est GFR (MDRD) Af Amer Pending, Est GFR (MDRD) Non-Af Pending, BUN/Creatinine Ratio Pending, Glucose Pending, Calcium Pending, Magnesium Pending Current Medications Amlodipine Besylate (Norvasc) 2.5 mg PO DAILY [facility] Last Admin: 02/18/20 10:03 Dose: 2.5 mg Documented by: [facility] Last Admin: 02/18/20 18:21 Dose: 1,000 mg Documented by: Calcium/Vitamin D (Os-Glenroy 500mg + D) [facility] Last Admin: 02/18/20 18:20 Dose: Not Given Documented by: Carvedilol (Coreg) 25 mg PO BID [facility] Last Admin: 02/18/20 21:20 Dose: 25 mg Documented by: Heparin Sodium (Porcine) (Heparin Na) 5,000 unit SC Q8 [facility] Last Admin: 02/19/20 06:22 Dose: 5,000 unit Documented by: Hydralazine HCl (Apresoline Iv) 10 mg IV Q4H PRN PRN PRN Reason: BLOOD PRESSURE Last Admin: 02/18/20 23:06 Dose: 10 mg Documented by: Hydromorphone HCl (Dilaudid Inj) 0.5 mg IV Q4H PRN PRN PRN Reason: Pain Score 6-10/10 Last Admin: 02/18/20 18:22 Dose: 0.5 mg Documented by: Sodium Chloride () 1,000 mls @ 150 mls/hr IV .Q6H40M [facility] Last Infusion: 02/19/20 06:20 Dose: 0 mls/hr Documented by: Metronidazole (Flagyl) 500 mg in 100 mls @ 100 mls/hr IV Q8 [facility] Last Admin: 02/19/20 06:19 Dose: 100 mls/hr Documented by: Sodium Chloride () 250 mls @ 15 mls/hr IV .[id number] PRN PRN Reason: Saline Flush Last Infusion: 02/18/20 20:13 Dose: Infused Documented by: Sodium Chloride () 250 mls @ 15 mls/hr IV .[id number] PRN PRN Reason: Additional IVPB Infusion Pantoprazole Sodium 40 mg/ (Sodium Chloride) 110 mls @ 330 mls/hr IV Q12 [facility] Last Infusion: 02/18/20 22:38 Dose: Infused Documented by: Ciprofloxacin (Cipro) 400 mg in 200 mls @ 200 mls/hr IV Q12 [facility] Last Infusion: 02/18/20 22:09 Dose: Infused Documented by: Ondansetron HCl (Zofran) 4 mg IV Q8H PRN PRN PRN Reason: NAUSEA/VOMITING Last Admin: 02/16/20 19:55 Dose: 4 mg Documented by: Potassium Chloride (K-Dur) [facility] Last Admin: 02/18/20 18:20 Dose: Not Given Documented by: [facility]one () [facility] Last Admin: 02/18/20 10:02 Dose: 5 mg Documented by: Prochlorperazine Edisylate (Compazine Iv) 10 mg IV Q6H PRN PRN PRN Reason: Nausea/Vomiting Last Admin: 02/17/20 16:08 Dose: 10 mg Documented by: Sodium Chloride () 10 - 40 ml IV UD PRN PRN Reason: SALINE FLUSH Last Admin: 02/18/20 23:06 Dose: 10 ml Documented by: Medical Necessity - Tobacco Use Smoking Status: Former smoker Assessment/Plan All Active Problems (Last Reviewed 02/14/20 @ 12:[address] Michael Conner MD) Severe sepsis (Acute) Colitis (Acute) Cystitis (Acute) Acute respiratory failure with hypoxia (Resolved) Right lower lobe pneumonia (Acute) Sinus tachycardia by electrocardiogram (Acute) Dehydration (Resolved) Patient is a 79-year-old lady admitted with abdominal pain and assessment of sepsis secondary to acute colitis made admitted to regular nursing floor for further management 1. Acute pancolitis ?With sepsis. CT of the abdomen obtained demonstrated diffuse colonic distention from the cecum to the proximal sigmoid. Admitted to regular nursing floor with conservative management with Cipro and Flagyl fluids pain meds with consultation placed to general surgery patient has been seen in consultation by Dr. Conner ?02/16/2020: Patient seen continues to improve clinically -02/17/2020. Repeat imaging studies CT of the abdomen and pelvis with contrast ordered for subsequent evaluation ?02/18/2020; Patient overall clinical condition continues to improve. CT of the abdomen obtained the day prior demonstrated improvement in gaseous distention of the colon with improvement of the pericolonic thickening. Patient is however having loose bowel movement this a.m. this was discussed with Dr. Conner with general surgery 02/19/2020: Patient still has significant symptoms including profuse diarrhea during the night. 2. Hypokalemia ?Corrected per protocol ?02/16/2020: Patient potassium level still remains significantly low. Correction initiated 3. Acute kidney injury ?Secondary to dehydration managed with IV fluids kidney function did improve 4. Essential hypertension ?Patient blood pressure was uncontrolled at the time of admission improved with addition of hydralazine 5. Peripheral arterial disease ?With previous history of CEA and subsequent stent placement for carotid artery stenosis 6. Dyslipidemia ?Patient is on statin therapy at home; held 7. DVT prophylaxis SC heparin 8. Hypocalcemia ?Corrected per protocol Clinical Impression(s) from Imaging Studies Abdomen/Pelvis CT 02/17/20 10:27 IMPRESSION: Since prior study, there has been improvement in gaseous distention of the colon with improvement of the pericolonic thickening. Small bilateral pleural effusions with bibasilar atelectasis. Small amount of perihepatic fluid which is new as compared to prior study. Electronically Signed: Pradip Davison, at 14:01 EDT , Service support , Inpatient E&M: 97008 [facility] Hosp L2
[2020-02-19] MEDS: Calcium Carbonate 500 MG Tablet 1000 MG PO ×2 (09:24→16:47)
[2020-02-19] MEDS: Calcium Carb/Vitamin D 1 TABLET Tablet PO ×2 (09:25→16:47)
[2020-02-19] MEDS: predniSONE 5 MG Tablet PO (09:25)
[2020-02-19] MEDS: Carvedilol 25 MG Tablet PO ×2 (09:26→22:12)
[2020-02-19] MEDS: amLODIPine 2.5 MG Tablet PO (09:26)
[2020-02-19 09:31] LABS: Anion Gap 7 (5-15); BUN 3 mg/dL (7-18); BUN/Creat Ratio 4.7 RATIO (10-20); Calcium,Total 7.5 mg/dL (8.5-10.1); Chloride 107 mmol/L (98-107); Creatinine, Serum 0.64 mg/dL (0.55-1.02); EST Glomerular Filtration Rate 94 mL/min (>60); Est Glom Filt Rate - Afr Amer 114 mL/min (>60); Estimated Creatinine Clearance 34.42 ml/min; Glucose 102 mg/dL (74-106); Magnesium 1.5 mg/dL (1.6-2.6); Potassium 3.2 mmol/L (3.5-5.1); Sodium Level 137 mmol/L (136-145)
--- NOTE | 2020-02-19 10:03 | PN.SURG_ITS ---
Patient Problems: Active and Suspected Problems (Last Reviewed 02/14/20 @ 12:[address] Michael Conner MD) Severe sepsis (Acute) Colitis (Acute) Cystitis (Acute) Subjective: Patient had a difficult night last night having about 10 episodes of diarrhea and feels very fatigued today. Objective: Abdomen is distended no rebound guarding or peritoneal signs are identified - Physical Exam Vitals/I&O's: Vital Signs Temp Pulse Resp BP Pulse Ox 98.1 F 82 18 159/94 H 100 02/19/20 04:13 02/19/20 04:13 02/19/20 04:13 02/19/20 04:13 02/19/20 04:13 Oxygen Flow Rate (L/min) 2 Oxygen Delivery Method Room Air Weight: 218 lb 7.649 oz Body Mass Index (BMI) 36.2 Intake and Output for Last 24 Hours 02/17/20 02/18/20 02/19/20 23:59 23:59 23:59 Intake Total 4428.0 / 4428.0 3497.5 / 3497.5 1375.0 / 1375.0 Output Total 100 / 100 Balance 4428.0 / 4428.0 3497.5 / 3497.5 1275.0 / 1275.0 Microbiology Past 72 Hours 02/13/20 22:20 Blood Culture (Wb) - Right Forearm Blood Culture - Prelimin adan No growth in 48 hours. 02/13/20 19:30 Blood Culture (Wb) - Anticubital Left Blood Culture - Preliminary No growth in 48 hours. Laboratory Results 02/17/20 06:45: Ionized Calcium 3.7 L 02/19/20 08:20: WBC 8.6, RBC 3.38 L, Hgb 10.1 L, Hct 31.5 L, MCV 93.2, MCH 29.9, MCHC 32.1, RDW Std Deviation 48.6 H, RDW Coeff of Blaine 14.3, Plt Count 243, MPV 10.0 02/19/20 08:20: Sodium 137, Potassium 3.2 L, Chloride 107, Carbon Dioxide 23.0, Anion Gap 7, BUN 3 L, Creatinine 0.64, Estim Creat Clear Calc 34.42, Est GFR (MDRD) Af Amer 114, Est GFR (MDRD) Non-Af 94, BUN/Creatinine Ratio 4.7 L, Glucose 102, Calcium 7.5 L, Magnesium 1.5 L Current Medications Amlodipine Besylate (Norvasc) 2.5 mg PO DAILY [facility] Last Admin: 02/19/20 09:26 Dose: 2.5 mg Documented by: [facility] Last Admin: 02/19/20 09:24 Dose: 1,000 mg Documented by: Calcium/Vitamin D (Os-Glenroy 500mg + D) [facility] Last Admin: 02/19/20 09:25 Dose: 1 tablet Documented by: Carvedilol (Coreg) 25 mg PO BID [facility] Last Admin: 02/19/20 09:26 Dose: 25 mg Documented by: Heparin Sodium (Porcine) (Heparin Na) 5,000 unit SC Q8 [facility] Last Admin: 02/19/20 06:22 Dose: 5,000 unit Documented by: Hydralazine HCl (Apresoline Iv) 10 mg IV Q4H PRN PRN PRN Reason: BLOOD PRESSURE Last Admin: 02/18/20 23:06 Dose: 10 mg Documented by: Hydromorphone HCl (Dilaudid Inj) 0.5 mg IV Q4H PRN PRN PRN Reason: Pain Score 6-10/10 Last Admin: 02/18/20 18:22 Dose: 0.5 mg Documented by: Sodium Chloride () 1,000 mls @ 150 mls/hr IV .Q6H40M [facility] Last Infusion: 02/19/20 06:20 Dose: 0 mls/hr Documented by: Metronidazole (Flagyl) 500 mg in 100 mls @ 100 mls/hr IV Q8 [facility] Last Infusion: 02/19/20 07:19 Dose: Infused Documented by: Sodium Chloride () 250 mls @ 15 mls/hr IV .[id number] PRN PRN Reason: Saline Flush Last Infusion: 02/18/20 20:13 Dose: Infused Documented by: Sodium Chloride () 250 mls @ 15 mls/hr IV .[id number] PRN PRN Reason: Additional IVPB Infusion Pantoprazole Sodium 40 mg/ (Sodium Chloride) 110 mls @ 330 mls/hr IV Q12 [facility] Last Infusion: 02/19/20 10:02 Dose: Infused Documented by: Ciprofloxacin (Cipro) 400 mg in 200 mls @ 200 mls/hr IV Q12 [facility] Last Infusion: 02/18/20 22:09 Dose: Infused Documented by: Ondansetron HCl (Zofran) 4 mg IV Q8H PRN PRN PRN Reason: NAUSEA/VOMITING Last Admin: 02/16/20 19:55 Dose: 4 mg Documented by: Potassium Chloride (K-Dur) [facility] Last Admin: 02/19/20 09:25 Dose: 20 meq Documented by: Prednisone () [facility] Last Admin: 02/19/20 09:25 Dose: 5 mg Documented by: Prochlorperazine Edisylate (Compazine Iv) 10 mg IV Q6H PRN PRN PRN Reason: Nausea/Vomiting Last Admin: 02/17/20 16:08 Dose: 10 mg Documented by: Sodium Chloride () 10 - 40 ml IV UD PRN PRN Reason: SALINE FLUSH Last Admin: 02/18/20 23:06 Dose: 10 ml Documented by: Medical Necessity - Tobacco Use Smoking Status: Former smoker Assessment/Plan All Active Problems (Last Reviewed 02/14/20 @ 12:[address] Michael Conner MD) Severe sepsis (Acute) Colitis (Acute) Cystitis (Acute) Acute respiratory failure with hypoxia (Resolved) Right lower lobe pneumonia (Acute) Sinus tachycardia by electrocardiogram (Acute) Dehydration (Resolved) We will get stool studies on her today to see if she has C. difficile Inpatient E&M: 94302 Subs Hosp L2
[2020-02-19] MEDS: Ciprofloxacin 400 MG/200 ML BAG 200 MG IV ×2 (10:33→22:54)
--- NOTE | 2020-02-19 16:11 | NURSING ---
awaiting magnesium iv to come from Rx to give to pt
[2020-02-19] MEDS: Magnesium Sulfate 4gm/100mL 4 GM/100 ML IV.SOLN. IV (16:45)
[2020-02-19] MEDS: 0.9% Saline Lock 10 ML Syringe IV ×3 (19:49→20:22)
[2020-02-19] MEDS: hydrALAZINE 20 MG/ML Vial 10 MG IV (20:22)
[2020-02-20] VITALS (7 sets, daily range): BP systolic 135–176; BP diastolic 41–70; PULSE 74–88; RESP 16–18; TEMP 36.6–36.9; O2SAT 95–96
[2020-02-20] MEDS: hydrALAZINE 20 MG/ML Vial 10 MG IV (02:16)
[2020-02-20] MEDS: 0.9% Saline Lock 10 ML Syringe IV (02:16)
[2020-02-20] MEDS: metroNIDAZOLE 500 MG/100 ML BAG 100 MG IV (06:08)
[2020-02-20] MEDS: Heparin Injection (Vial) 5,000 UNIT/ML VIAL 5000 UNIT SC (06:11)
[2020-02-20 06:47] LABS: Hematocrit 31.5 % (37-47); Hemoglobin 10.1 g/dL (12.0-15.0); Mean Corp Hgb Conc 32.1 g/dL (32-36); Mean Corpuscular Hgb 29.4 pg (27.0-32.0); Mean Corpuscular Volume 91.6 fL (81-99); Mean Platelet Vol. 9.8 fl (6.2-12.0); Platelet Count 281 K/mm3 (150-450); RBC Distribution Width CV 14.6 % (11.6-14.6); RBC Distribution Width SD 47.8 fl (35.1-43.9); Red Blood Count 3.44 M/mm3 (4.2-5.4); White Blood Count 9.2 K/mm3 (4.4-11.0)
[2020-02-20 07:20] LABS: Anion Gap 6 (5-15); BUN 2 mg/dL (7-18); BUN/Creat Ratio 2.8 RATIO (10-20); Calcium,Total 7.6 mg/dL (8.5-10.1); Chloride 107 mmol/L (98-107); EST Glomerular Filtration Rate 85 mL/min (>60); Est Glom Filt Rate - Afr Amer 103 mL/min (>60); Estimated Creatinine Clearance 34.42 ml/min; Glucose 115 mg/dL (74-106); Magnesium 2.2 mg/dL (1.6-2.6); Potassium 3.2 mmol/L (3.5-5.1); Sodium Level 137 mmol/L (136-145)
[2020-02-20] MEDS: predniSONE 5 MG Tablet PO (08:32)
[2020-02-20] MEDS: amLODIPine 2.5 MG Tablet PO (08:32)
[2020-02-20] MEDS: Calcium Carb/Vitamin D 1 TABLET Tablet PO (08:32)
[2020-02-20] MEDS: Calcium Carbonate 500 MG Tablet 1000 MG PO (08:32)
[2020-02-20] MEDS: Carvedilol 25 MG Tablet PO (08:34)
--- NOTE | 2020-02-20 08:44 | NURSING ---
pt had small emesis while taking morning pills due to a pill getting caught and coreg noted in emesis bag. gave pt another coreg pill which caused no issues while swallowing.
--- NOTE | 2020-02-20 10:23 | CASEMGMT ---
FELICE GONZALEZ in to discuss discharge planning with patient. Patient states that her plan is to discharge home with brother. Patient states that she will continue to look for her own place with resources provided by . FELICE GONZALEZ clarified with patient that brother did not say patient could not return home, patient states that brother said she can return to his house just needs to look into moving out. FELICE GONZALEZ inquired if patient had any other needs for at discharge. Patient declined. Patient encouraged to work with therapy prior to discharge. Nurse Brianda VIVEROS updated regarding conversation with patient. Hospitalist updated regarding conversation with patient.
--- NOTE | 2020-02-20 10:25 | PCM.PN.HOSP ---
Patient Problems: Active and Suspected Problems (Last Reviewed 02/14/20 @ 12:[address] Michael Conner MD) Severe sepsis (Acute) Colitis (Acute) Cystitis (Acute) Subjective: Still feeling tired, she did not get much sleep last night. She also had a small episode of emesis this morning with pills but this was due to her pill getting caught. Vitals/I&O's: Vital Signs Temp Pulse Resp BP Pulse Ox 98.4 F 80 18 147/41 H 96 02/20/20 02:09 02/20/20 03:17 02/20/20 02:09 02/20/20 03:17 02/20/20 02:09 Oxygen Flow Rate (L/min) 2 Oxygen Delivery Method Room Air Weight: 219 lb 5.759 oz Body Mass Index (BMI) 36.2 Intake and Output for Last 24 Hours 02/18/20 02/19/20 02/20/20 23:59 23:59 23:59 Intake Total 3497.5 / 3497.5 5642.5 / 5642.5 498.75 / 498.75 Output Total 100 / 100 Balance 3497.5 / 3497.5 5542.5 / 5542.5 498.75 / 498.75 General: Alert, Oriented x3, Cooperative, No apparent distress HEENT: Atraumatic, PERRLA, EOMI, Normocephalic Oral: Moist Mucosa Neck: Supple, No JVD Lungs: Clear to auscultation, Normal air movement, No rhonchi, No wheeze, No rales, Diminished Cardiovascular: Regular rate, Regular Rhythm, Normal S1, Normal S2, No murmurs Abdomen: Soft, Non Tender, No Hepato-splenomegaly, Passing Flatus, Distended - Apparently improved Extremities: No edema, Capillary Refill Less than 3 Seconds Skin: No rashes, No breakdown Neurological: Neuro grossly intact, Sensory exam intact to light touch and pain Psych/Mental Status: Flat Affect Microbiology Past 72 Hours 02/19/20 11:07 Stool C. difficile DNA Amplification - Final 02/13/20 22:20 Blood Culture (Wb) - Right Forearm Blood Culture - Final No growth in 5 days. 02/13/20 19:30 Blood Culture (Wb) - Anticubital Left Blood Culture - Final No growth in 5 days. Laboratory Results 02/20/20 06:25: WBC 9.2, RBC 3.44 L, Hgb 10.1 L, Hct 31.5 L, MCV 91.6, MCH 29.4, MCHC 32.1, RDW Std Deviation 47.8 H, RDW Coeff of Blaine 14.6, Plt Count 281, MPV 9.8 02/20/20 06:25: Sodium 137, Potassium 3.2 L, Chloride 107, Carbon Dioxide 24.0, Anion Gap 6, BUN 2 L, Creatinine 0.70, Estim Creat Clear Calc 34.42, Est GFR (MDRD) Af Amer 103, Est GFR (MDRD) Non-Af 85, BUN/Creatinine Ratio 2.8 L, Glucose 115 H, Calcium 7.6 L, Magnesium 2.2 Current Medications Amlodipine Besylate (Norvasc) 2.5 mg PO DAILY [facility] Last Admin: 02/20/20 08:32 Dose: 2.5 mg Documented by: Calcium Carbon[facility] ([facility]) [facility] Last Admin: 02/20/20 08:32 Dose: 1,000 mg Documented by: Calcium/Vitamin D (Os-Glenroy 500mg + D) [facility] Last Admin: 02/20/20 08:32 Dose: 1 tablet Documented by: Carvedilol (Coreg) 25 mg PO BID [facility] Last Admin: 02/20/20 08:34 Dose: 25 mg Documented by: Heparin Sodium (Porcine) (Heparin Na) 5,000 unit SC Q8 [facility] Last Admin: 02/20/20 06:11 Dose: 5,000 unit Documented by: Hydralazine HCl (Apresoline Iv) 10 mg IV Q4H PRN PRN PRN Reason: BLOOD PRESSURE Last Admin: 02/20/20 02:16 Dose: 10 mg Documented by: Hydromorphone HCl (Dilaudid Inj) 0.5 mg IV Q4H PRN PRN PRN Reason: Pain Score 6-10/10 Last Admin: 02/18/20 18:22 Dose: 0.5 mg Documented by: Metronidazole (Flagyl) 500 mg in 100 mls @ 100 mls/hr IV Q8 [facility] Last Infusion: 02/20/20 07:08 Dose: Infused Documented by: Sodium Chloride () 250 mls @ 15 mls/hr IV .[id number] PRN PRN Reason: Saline Flush Last Infusion: 02/18/20 20:13 Dose: Infused Documented by: Sodium Chloride () 250 mls @ 15 mls/hr IV .[id number] PRN PRN Reason: Additional IVPB Infusion Pantoprazole Sodium 40 mg/ (Sodium Chloride) 110 mls @ 330 mls/hr IV Q12 [facility] Last Infusion: 02/19/20 21:44 Dose: Infused Documented by: Ciprofloxacin (Cipro) 400 mg in 200 mls @ 200 mls/hr IV Q12 [facility] Last Infusion: 02/19/20 23:54 Dose: Infused Documented by: Ondansetron HCl (Zofran) 4 mg IV Q8H PRN PRN PRN Reason: NAUSEA/VOMITING Last Admin: 02/16/20 19:55 Dose: 4 mg Documented by: Potassium Chloride (K-Dur) [facility] Last Admin: 02/20/20 08:32 Dose: 20 meq Documented by: Prednisone () [facility] Last Admin: 02/20/20 08:32 Dose: 5 mg Documented by: Prochlorperazine Edisylate (Compazine Iv) 10 mg IV Q6H PRN PRN PRN Reason: Nausea/Vomiting Last Admin: 02/17/20 16:08 Dose: 10 mg Documented by: Sodium Chloride () 10 - 40 ml IV UD PRN PRN Reason: SALINE FLUSH Last Admin: 02/20/20 02:16 Dose: 10 ml Documented by: Medical Necessity - Tobacco Use Smoking Status: Former smoker Assessment/Plan All Active Problems (Last Reviewed 02/14/20 @ 12:[address] Michael Conner MD) Severe sepsis (Acute) Colitis (Acute) Cystitis (Acute) Acute respiratory failure with hypoxia (Resolved) Right lower lobe pneumonia (Acute) Sinus tachycardia by electrocardiogram (Acute) Dehydration (Resolved) 1. Severe sepsis secondary to pancolitis -A week prior to presentation she had presented to the ER with just the sigmoid colitis and discharged on Augmentin, when she re-presented she had a pancolitis with significantly thickened sigmoid colon -Jacky CT scan during this admission showed slight improvement -Symptomatically she had been getting better however she had 10 bowel movements the night prior to her initial discharge plan therefore she was kept -She only had 2 bowel movements overnight however she is very tired -Leukocytosis has resolved with Cipro and Flagyl -Her abdomen is distended but soft and not significantly tender. -Repeat C. difficile testing was negative 2. Hypokalemia/RICCARDO -Potassium will be replaced today per protocol -Creatinine has returned to baseline with a creatinine of 0.7 3. HTN/PAD/HLD -Blood pressure stable though a little bit elevated,, can continue with her Coreg and Norvasc and will restart her losartan -Status post stent placement in her carotid artery -And continue a statin on discharge -Continue with aspirin and Plavix on discharge DVT: Heparin Inpatient E&M: [id number] Subs Hosp L2
[2020-02-20] MEDS: Ciprofloxacin 400 MG/200 ML BAG 200 MG IV (11:30)
[2020-02-20] MEDS: Losartan Potassium 100 MG Tablet PO (11:33)
--- NOTE | 2020-02-20 13:55 | PCM.DC ---
- Discharge Diagnoses Current Active Problems: Current Active and Chronic Problems (Last Reviewed 02/14/20 @ 12:[address] Michael Conner MD) Severe sepsis (Acute) Colitis (Acute) Cystitis (Acute) Polymyalgia rheumatica (Chronic) You will use the following diet at home:: Full liquid Your food should be the consistency of: Regular Your liquids should be the consistency of: Regular/Thin Discharge Activity: Return to Normal Activity Call your doctor if you observe: Fever of 101 or Higher, Shortness of breath, Dizziness, Fainting spells, Swelling in the ankles, Chest pain, Increased palpitations (irregular heartbeat) Allergies/Adverse Reactions: Allergies gabapentin Allergy (Verified 02/13/20 18:59) Unknown nortriptyline Allergy (Verified 02/13/20 18:59) Unknown rofecoxib [From Vioxx] Allergy (Verified 02/13/20 18:59) Unknown tacrolimus Allergy (Verified 02/13/20 18:59) Unknown morphine Adverse Reaction (Verified 02/13/20 18:59) Nausea Medications to take at Discharge Pantoprazole Sodium [Protonix] 40 mg PO DAILY 12/15/14 Acetaminophen [Tylenol Arthritis] 650 mg PO Q4H PRN PRN 11/04/18 Carvedilol 25 mg PO BID 11/04/18 Chlorthalidone 12.5 mg PO DAILY 11/04/18 Cholecalciferol (VIT D3) [Vitamin D3] 2,000 unit PO DAILY 11/04/18 Coenzyme [id number] E [Co Q-10 with l-Carnitine Sftgl] 1 cap PO DAILY 11/04/18 Leflunomide 20 mg PO DAILY 11/04/18 Pravastatin Sodium 20 mg PO QHS 11/04/18 Prednisone 5 mg PO DAILY 11/04/18 Albuterol IH (ProAir) [Proair Hfa] 1 - 2 puff INHALATION Q6H PRN PRN #1 inhaler 11/09/18 Aspirin [Aspirin, Baby] 81 mg PO DAILY@0800 tab.chew 11/09/18 amlodipine 2.5 mg tablet 2.5 mg PO DAILY 07/04/19 clobetasol 0.05 % scalp solution 1 applic TOPICAL DAILY PRN 07/04/19 clopidogrel 75 mg tablet 75 mg PO DAILY 07/04/19 losartan 100 mg tablet 100 mg PO DAILY 07/04/19 potassium chloride 10 mEq tablet,extended release 20 meq PO BID tab 07/04/19 Ondansetron [Zofran Odt] 4 mg PO Q8H PRN PRN #10 tab 01/22/20 Ciprofloxacin [Cipro] 500 mg PO BID #14 tab 02/20/20 Metronidazole [Flagyl] 500 mg PO TID #21 tab 02/20/20 The following prescriptions were given: Ciprofloxacin [Cipro] 500 mg PO BID #14 tab Transmission Status: Pending to [facility] Metronidazole [Flagyl] 500 mg PO TID #21 tab Transmission Status: Pending to [facility] Primary Care Physician: Nicolas Villegas MD [Primary Care Provider] - Please follow up with your Primary Care Physician in: 3-5 days Test Results: Test results from this visit will be discussed in further detail at your follow-up appointment, if applicable. Please Follow Up With: Michael Conner MD When: 2 weeks
--- NOTE | 2020-02-20 13:57 | DS.PCM_ITS ---
Discharge Date and Diagnosis - Problem List Patient Problems: Active and Suspected Problems (Last Reviewed 02/14/20 @ 12:[address] Michael Conner MD) Severe sepsis (Acute) Colitis (Acute) Cystitis (Acute) Date of Admission: 02/13/20 Date of Discharge: 02/20/20 - Primary Discharge Diagnosis Acute Problems: Active Problems (Last Reviewed 02/14/20 @ 12:[address] Michael Conner MD) Severe sepsis (Acute) Colitis (Acute) Cystitis (Acute) - Secondary Discharge Diagnosis Chronic Problems: Chronic Problems (Last Reviewed 02/14/20 @ 12:[address] 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 Mild diffuse colonic distention with liquid stool from the cecum to proximal sigmoid. There is pericecal fatty stranding. Findings are compatible with colitis. 2. Bilateral renal cysts. Left renal atrophy. 3. Status post cholecystectomy and hysterectomy. 4. Small hiatal hernia. 5. Diffuse degenerative changes of the visualized thoracolumbar spine. Grade 1 anterolisthesis of L4 relative to L5. Moderate thoracolumbar levoscoliosis. Status post total left hip replacement. 6. There is no evidence of free intra-abdominal or intrapelvic air or fluid. Electronically Signed: Reinier Ruffin MD at 21:41 EDT , Service support , Abdomen/Pelvis CT 02/17/20 10:27 IMPRESSION: Since prior study, there has been improvement in gaseous distention of the colon with improvement of the pericolonic thickening. Small bilateral pleural effusions with bibasilar atelectasis. Small amount of perihepatic fluid which is new as compared to prior study. Electronically Signed: Pradip Davison, at 14:01 EDT , Service support , Consults: General Surgery ICU Operations: None Procedures: None Summary of Care Provided: Per HPI: The patient is a 79 year old female patient who presented to the emergency room on January 21 with abdominal pain and was subsequently treated for colitis with Augmentin who now returns to the emergency room with ongoing abdominal pain. In the interim. Of her treatment she is only had 2 liquid bow el movements and has had poor appetite with nausea. Pain is increased today and she has become increasingly nauseous as well. Patient does have a history of chronic kidney disease, COPD, polymyalgia rheumatica for which she takes steroids chronically and obesity. The patient denies chest pain or shortness of breath at present time. CBC shows an elevated white blood cell count of 13,000 with a left shift along with an elevated lactic acid and positive CT scan for acute colitis. She will be admitted overnight to the intensive care unit for treatment of sepsis secondary to her colitis and plan for stepdown in the morning. Hospital Course: 1. Severe sepsis secondary to pancolitis/hypokalemia/[id number]-old female who presented to the emergency room a few weeks after the onset of abdominal pain. She was initially seen on January [address] scan showed a sigmoid colitis. She was discharged on Augmentin but she said she completed the Augmentin and did not have any subsequent improvement. She presented back to the ER this time with a pancolitis spreading from her sigmoid colon all the way to her cecum. General surgery was consulted and wanted to manage her conservatively at that time. She had 2 C. difficile test both of which were negative. She was started on Cipro and Flagyl, she never had any stool studies other than the C. difficile test. She has had improvement in her symptoms, and states that she is significantly improved from where she was January 21. She was keen to be discharged yesterday however the night before she had had 10 bowel movements. The repeat C. difficile test at that time was also negative. She is feeling much better today, and only had 2 bowel movement and would like to go home today. She will be discharged on a full liquid diet. I discussed with her the plan for discharge today and she expressed understanding of the risk and benefits of going home. She will need to follow-up with her PCP for outpatient blood work as her potassium was low on the day of discharge at 3.2. This was also discussed with her. She will continue her home potassium chloride dosing. She will need to follow-up with general surgery in 2 weeks for possible colonoscopy. She will be discharged on ciprofloxacin and Flagyl to complete a 10 to 14-day course given her slow improvement. On the day of discharge her creatinine had normalized at 0.7. 2. Hypertension, peripheral artery disease, hyperlipidemia are all chronic medical conditions which complicate her care. Her home medications were continued where appropriate. Patient Problems: Active and Suspected Problems (Last Reviewed 02/14/20 @ 12:[address] Michael Conner MD) Severe sepsis (Acute) Colitis (Acute) Cystitis (Acute) - Physical Exam Vitals/I&O's: Vital Signs Temp Pulse Resp BP Pulse Ox 98.2 F 88 16 149/68 H 95 02/20/20 11:30 02/20/20 11:30 02/20/20 11:30 02/20/20 11:30 02/20/20 11:30 Oxygen Flow Rate (L/min) 2 Oxygen Delivery Method Room Air Weight: 219 lb 5.759 oz Body Mass Index (BMI) 36.2 Intake and Output for Last 24 Hours 02/18/20 02/19/20 02/20/20 23:59 23:59 23:59 Intake Total 3497.5 / 3497.5 5642.5 / 5642.5 1308.75 / 1308.75 Output Total 100 / 100 Balance 3497.5 / 3497.5 5542.5 / 5542.5 1308.75 / 1308.75 Microbiology Past 72 Hours 02/19/20 11:07 Stool C. difficile DNA Amplification - Final 02/13/20 22:20 Blood Culture (Wb) - Right Forearm Blood Culture - Final No growth in 5 days. 02/13/20 19:30 Blood Culture (Wb) - Anticubital Left Blood Culture - Final No growth in 5 days. Laboratory Results 02/20/20 06:25: WBC 9.2, RBC 3.44 L, Hgb 10.1 L, Hct 31.5 L, MCV 91.6, MCH 29.4, MCHC 32.1, RDW Std Deviation 47.8 H, RDW Coeff of [place]aine 14.6, Plt Count 281, MPV 9.8 02/20/20 06:25: Sodium 137, Potassium 3.2 L, Chloride 107, Carbon Dioxide 24.0, Anion Gap 6, BUN 2 L, Creatinine 0.70, Estim Creat Clear Calc 34.42, Est GFR (MDRD) Af Amer 103, Est GFR (MDRD) Non-Af 85, BUN/Creatinine Ratio 2.8 L, Glucose 115 H, Calcium 7.6 L, Magnesium 2.2 Current Medications Amlodipine Besylate (Norvasc) 2.5 mg PO DAILY [facility] Last Admin: 02/20/20 08:32 Dose: 2.5 mg Documented by: [facility] Admin: 02/20/20 08:32 Dose: 1,000 mg Documented by: Calcium/Vitamin D (Os-[place] 500mg + D) [facility] Last Admin: 02/20/20 08:32 Dose: 1 tablet Documented by: Carvedilol (Coreg) 25 mg PO BID [facility] Last Admin: 02/20/20 08:34 Dose: 25 mg Documented by: Heparin Sodium (Porcine) (Heparin Na) 5,000 unit SC Q8 [facility] Last Admin: 02/20/20 06:11 Dose: 5,000 unit Documented by: Hydralazine HCl (Apresoline Iv) 10 mg IV Q4H PRN PRN PRN Reason: BLOOD PRESSURE Last Admin: 02/20/20 02:16 Dose: 10 mg Documented by: Hydromorphone HCl (Dilaudid Inj) 0.5 mg IV Q4H PRN PRN PRN Reason: Pain Score 6-10/10 Last Admin: 02/18/20 18:22 Dose: 0.5 mg Documented by: Metronidazole (Flagyl) 500 mg in 100 mls @ 100 mls/hr IV Q8 [facility] Last Infusion: 02/20/20 07:08 Dose: Infused Documented by: Sodium Chloride () 250 mls @ 15 mls/hr IV .[id number] PRN PRN Reason: Saline Flush Last Infusion: 02/18/20 20:13 Dose: Infused Documented by: Sodium Chloride () 250 mls @ 15 mls/hr IV .[id number] PRN PRN Reason: Additional IVPB Infusion Pantoprazole Sodium 40 mg/ (Sodium Chloride) 110 mls @ 330 mls/hr IV Q12 [facility] Last Infusion: 02/20/20 10:49 Dose: Infused Documented by: Ciprofloxacin (Cipro) 400 mg in 200 mls @ 200 mls/hr IV Q12 [facility] Last Infusion: 02/20/20 12:30 Dose: Infused Documented by: Losartan Potassium (Cozaar) 100 mg PO DAILY [facility] Last Admin: 02/20/20 11:33 Dose: 100 mg Documented by: Ondansetron HCl (Zofran) 4 mg IV Q8H PRN PRN PRN Reason: NAUSEA/VOMITING Last Admin: 02/16/20 19:55 Dose: 4 mg Documented by: Potassium Chloride (K-Dur) [facility] Last Admin: 02/20/20 08:32 Dose: 20 meq Documented by: Prednisone () [facility] Last Admin: 02/20/20 08:32 Dose: 5 mg Documented by: Prochlorperazine Edisylate (Compazine Iv) 10 mg IV Q6H PRN PRN PRN Reason: Nausea/Vomiting Last Admin: 02/17/20 16:08 Dose: 10 mg Documented by: Sodium Chloride () 10 - 40 ml IV UD PRN PRN Reason: SALINE FLUSH Last Admin: 02/20/20 02:16 Dose: 10 ml Documented by: Discharge Activity: Return to Normal Activity Call your doctor if you observe: Fever of 101 or Higher, Shortness of breath, Dizziness, Fainting spells, Swelling in the ankles, Chest pain, Increased palpitations (irregular heartbeat) Home Medications: Medications to take at Discharge Pantoprazole Sodium [Protonix] 40 mg PO DAILY 12/15/14 Acetaminophen [Tylenol Arthritis] 650 mg PO Q4H PRN PRN 11/04/18 Carvedilol 25 mg PO BID 11/04/18 Chlorthalidone 12.5 mg PO DAILY 11/04/18 Cholecalciferol (VIT D3) [Vitamin D3] 2,000 unit PO DAILY 11/04/18 Coenzyme [id number] E [Co Q-10 with l-Carnitine Sftgl] 1 cap PO DAILY 11/04/18 Leflunomide 20 mg PO DAILY 11/04/18 Pravastatin Sodium 20 mg PO QHS 11/04/18 Prednisone 5 mg PO DAILY 11/04/18 Albuterol IH (ProAir) [Proair Hfa] 1 - 2 puff INHALATION Q6H PRN PRN #1 inhaler 11/09/18 Aspirin [Aspirin, Baby] 81 mg PO DAILY@0800 tab.chew 11/09/18 amlodipine 2.5 mg tablet 2.5 mg PO DAILY 07/04/19 clobetasol 0.05 % scalp solution 1 applic TOPICAL DAILY PRN 07/04/19 clopidogrel 75 mg tablet 75 mg PO DAILY 07/04/19 losartan 100 mg tablet 100 mg PO DAILY 07/04/19 potassium chloride 10 mEq tablet,extended release 20 meq PO BID tab 07/04/19 Ondansetron [Zofran Odt] 4 mg PO Q8H PRN PRN #10 tab 01/22/20 Ciprofloxacin [Cipro] 500 mg PO BID #14 tab 02/20/20 Metronidazole [Flagyl] 500 mg PO TID #21 tab 02/20/20 Following Prescriptions Were Given to Patient: Ciprofloxacin [Cipro] 500 mg PO BID #14 tab Transmission Status: Pending to [facility] Metronidazole [Flagyl] 500 mg PO TID #21 tab Transmission Status: Pending to [facility] Primary Care Physician: Nicolas Villegas MD [Primary Care Provider] - Please follow up with your Primary Care Physician in: 3-5 days Please Follow Up With: Michael Conner MD When: 2 weeks Disposition: Home Minutes spent on discharge:: 35 Patient Condition:: Stable Medical Necessity - Tobacco Use Smoking Status: Former smoker Meaningful Use Info Meaningful Use Diagnoses (Choose all that apply): None applicable Inpatient E&M: [id number] [facility]
--- NOTE | 2020-02-20 13:58 | CASEMGMT ---
FELICE GONZALEZ reviewed therapy notes and discussed discharge needs with patient. Patient denies additional DME. Patient is also declining HHC or outpatient therapy at this time. FELICE GONZALEZ educated patient that should she reconsider HHC or therapy, she can follow-up with her PCP regarding those services. Patient voiced no further needs or concerns at this time.
== END 2020-02-20 15:20 | disposition home or self-care (01) | DRG 872 ==
LOC: ED 21:58 → ICU 22:32 → MS3 02-14 09:39
PROVIDERS: Family Medicine; Internal Medicine; Admitting Provider Family Medicine; Emergency Provider Emergency Medicine; PCP Family Medicine; Referring Provider Family Medicine; Visit Provider Family Medicine
DX: A41.9 Sepsis, unspecified organism (principal); N30.00 Acute cystitis without hematuria; N17.9 Acute kidney failure, unspecified; R65.20 Severe sepsis without septic shock; K52.9 Noninfective gastroenteritis and colitis, unspecified; I27.20 Pulmonary hypertension, unspecified; I12.9 Hypertensive chronic kidney disease with stage 1 through stage 4 chronic kidney disease, or unspecified chronic kidney disease; N18.2 Chronic kidney disease, stage 2 (mild); E78.5 Hyperlipidemia, unspecified; Z87.891 Personal history of nicotine dependence; I25.10 Atherosclerotic heart disease of native coronary artery without angina pectoris; M35.3 Polymyalgia rheumatica; E66.9 Obesity, unspecified; Z79.899 Other long term (current) drug therapy; Z79.51 Long term (current) use of inhaled steroids; Z79.52 Long term (current) use of systemic steroids; Z68.35 Body mass index [BMI] 35.0-35.9, adult; G47.33 Obstructive sleep apnea (adult) (pediatric); E87.6 Hypokalemia; K21.9 Gastro-esophageal reflux disease without esophagitis; I73.9 Peripheral vascular disease, unspecified; I65.29 Occlusion and stenosis of unspecified carotid artery; E83.51 Hypocalcemia; D72.829 Elevated white blood cell count, unspecified
CPT/HCPCS: 36415; 74177; 80048; 80053; 80076; 81001; 82330; 83605; 83690; 83735; 85025; 85027; 87040; 87086; 87088; 87493; 93005; 94762; 97162; 97166; 97802; 99251; 99285; J7030; J7050; Q9967; A4216; G0463; J0744; J2405

== ENCOUNTER 2020-02-20 18:50 | Observation (INO) | payer MEDICARE, OTHER, SELFPAY ==
[2020-02-13 22:49] VITALS: BMI 36.2
[2020-02-20 18:51] VITALS: BP 134/71; PULSE 81; PULSE 90; RESP 17; TEMP 36.3; O2SAT 99; BMI 41.3
--- NOTE | 2020-02-20 19:41 | ED.DCSUM_ITS ---
History of Present Illness Chief Complaint: Fall Informant: Patient Onset: Today Narrative: Patient presents back to the hospital today secondary to weakness and a fall. She was hospitalized the secondary to pancolitis. She states she thought she was ready go home but after getting home went up 6 steps and then fell because her legs gave out on her. She had to call local EMS to get her upstairs to the second floor where her bedroom and bathroom are. Patient states she then went to the bathroom and did not have the strength to get herself off the commode and they to call friends to help with that as well. Patient now feels that she needs to go to rehab. She denies any injury from her fall. - Past Medical History (1) Colitis Status: Acute (2) Benign essential hypertension Status: Chronic (3) Chronic renal insufficiency, stage II (mild) Status: Chronic (4) HLD (hyperlipidemia) Status: Chronic (5) AILYN (obstructive sleep apnea) Status: Chronic Comment: AHI 115 and titrated to nasal CPAP 14 cm of water (6) Polymyalgia rheumatica Status: Chronic (7) Pulmonary hypertension Status: Chronic Comment: RVSP 55 (8) Renal artery stenosis Status: Chronic (9) COPD (chronic obstructive pulmonary disease) Status: Suspected Past Medical History - Allergies and Home Meds Allergies/Adverse Reactions: Allergies gabapentin Allergy (Verified 02/20/20 18:50) Unknown nortriptyline Allergy (Verified 02/20/20 18:50) Unknown rofecoxib [From Vioxx] Allergy (Verified 02/20/20 18:50) Unknown tacrolimus Allergy (Verified 02/20/20 18:50) Unknown morphine Adverse Reaction (Verified 02/20/20 18:50) Nausea Primary Care Physician: Nicolas Villegas MD [Primary Care Provider] - Prior records reviewed: Yes Surgical History: appendectomy, cholecystectomy, hysterectomy, total hip arthroplasty, - - Exploratory laparotomy Smoking Status: Former smoker - Family History Paternal Family History: Family History (Last Updated 01/02/20 @ 11:07 by Mitchell Rosenthal NP, [employer]) Mother Cancer Father Emphysema of lung Aunt Cancer Grandfather Vascular disease Grandmother Diabetes Brother Cancer Family History: Reports: No pertinent history Maternal Family History: Family History (Last Updated 01/02/20 @ 11:07 by Mitchell H Roof [employer], [employer]) Mother Cancer Father Emphysema of lung Aunt Cancer Grandfather Vascular disease Grandmother Diabetes Brother Cancer Family History: Reports: No pertinent history Review of Systems General: Denies: Chills, Fever Eyes: Denies: Visual changes - bilaterally ENT: Denies: Bilateral ear pain Cardiovascular: Denies: Chest pain Respiratory: Denies: Dyspnea, Cough Gastrointestinal: Reports: Diarrhea. Denies: Abdominal pain Musculoskeletal: Denies: Extremity Pain Skin: Denies: Rash Hematologic: Denies: Easy bruising, Easy bleeding Allergy: Denies: Uticaria Physical Exam Vital Signs/Narrative: Vital Signs Temp Pulse Resp BP Pulse Ox 02/20/20 18:51 97.4 F L 90 17 134/71 H 99 Inital Vital Signs reviewed: Yes General: Well nourished, Well developed Head: Normocephalic ENT: Moist mucous membranes Neck: Supple Cardiovascular: Regular rate, Regular rhythm Respiratory: No distress, CTA bilaterally Abdomen: Soft, Nontender, Normal bowel sounds Extremities: Edema - 2+ bilateral lower extremity edema. Skin: Normal color Neurological: Alert, Oriented x3 Psychological: Normal affect Diagnostic/Tx/Re-eval - Medical Decision Making Patient just had blood work obtained this morning do not think it needs to be repeated at this time. Patient needs admission and transfer to the rehab unit to build up her strength. I will speak with the hospitalist. ED Disposition - Plan for ED Patient: Disposition: Acute Care Hospital [facility] Diagnosis: Generalized weakness Referrals: Nicolas Villegas MD [Primary Care Provider] -
--- NOTE | 2020-02-20 20:08 | HP.PCM_ITS ---
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 (9) Chronic renal insufficiency, stage II (mild) Status: Chronic (10) Hyperglycemia, unspecified Status: Chronic (11) Carotid stenosis Status: Chronic Qualifiers: Laterality: left Qualified Code(s): I65.22 - Occlusion and stenosis of left carotid artery (12) Renal artery stenosis Status: Chronic (13) HLD (hyperlipidemia) Status: Chronic Qualifiers: Hyperlipidemia type: unspecified Qualified Code(s): E78.5 - Hyperlipidemia, unspecified (14) Benign essential hypertension Status: Chronic (15) Severe sepsis Status: Inactive (16) Colitis Status: Inactive (17) Cystitis Status: Inactive (18) COPD (chronic obstructive pulmonary disease) Status: Inactive Qualifiers: COPD type: unspecified COPD Qualified Code(s): J44.9 - Chronic obstructive pulmonary disease, unspecified (19) Acute respiratory failure with hypoxia Status: Inactive (20) Right lower lobe pneumonia Status: Inactive Qualifiers: Pneumonia type: due to unspecified organism (21) Sinus tachycardia by electrocardiogram Status: Inactive History of Present Illness Date of Admission: 02/20/20 Chief Complaint: weakness The patient is a 79 year old F with a significant history of polymyalgia rheumatica; obstructive sleep apnea; osteoarthritis; CAD; and CKD stage II who presents to the emergency department with weakness. Patient was discharged from the hospital on the same day of presentation. When she went home after walking 6 flight of stairs she fell. She attributes her fall to weakness. She called the paramedics who came to help her with her fall. Subsequently she went to her bathroom which is on the second floor. She could not get up from the commode and had to call friends to help her get up from the commode. Subsequently she came to emergency department with plan to get into a rehabilitation program. She denies injury from the fall but she is ambivalent on whether her right knee is more stiff than usual. Also, she feels swollen and she attributes her swelling to receiving IV fluids on her recent admission. Of note patient was diagnosed with a severe sepsis; and bland colitis on her recent admission to the hospital, 02/13/2020 to 02/20/2020. Past Medical History Past Medical History (Chronic Problems): Chronic Problems (Last Reviewed 02/20/20 @ 20:[address] 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 (Chronic) I25.10 Acute respiratory failure with hypoxia (Inactive) J96.01 Right lower lobe pneumonia (Inactive) J18.1 Sinus tachycardia by electrocardiogram (Inactive) R00.0 Chronic renal insufficiency, stage II (mild) (Chronic) N18.2 Hyperglycemia, unspecified (Chronic) R73.9 Carotid stenosis (Chronic) I65.29 Renal artery stenosis (Chronic) I70.1 HLD (hyperlipidemia) (Chronic) E78.5 Benign essential hypertension (Chronic) I10 Acute kidney insufficiency N28.9 NSTEMI (non-ST elevated myocardial infarction) I21.4 Barretts esophagus K22.70 Cerebrovascular disease I67.9 Former smoker, stopped smoking many years ago Z87.891 History of bleeding peptic ulcer Z87.11 Osteoarthritis Dehydration (Resolved) E86.0 Pneumonia J18.9 Severe sepsis A41.9, R65.20 Allergies gabapentin Allergy (Verified 02/20/20 18:50) Unknown nortriptyline Allergy (Verified 02/20/20 18:50) Unknown rofecoxib [From Vioxx] Allergy (Verified 02/20/20 18:50) Unknown tacrolimus Allergy (Verified 02/20/20 18:50) Unknown morphine Adverse Reaction (Verified 02/20/20 18:50) Nausea Home Medications: Ambulatory Orders Medication Instructions Recorded Pantoprazole Sodium [Protonix] 40 mg PO DAILY 12/15/14 Acetaminophen [Tylenol Arthritis] 650 mg PO Q4H PRN PRN 11/04/18 Carvedilol 25 mg PO BID 11/04/18 Chlorthalidone 12.5 mg PO DAILY 11/04/18 Cholecalciferol (VIT D3) [Vitamin 2,000 unit PO DAILY 11/04/18 D3] Coenzyme [id number] E [Co 1 cap PO DAILY 11/04/18 Q-10 with l-Carnitine Sftgl] Leflunomide 20 mg PO DAILY 11/04/18 Pravastatin Sodium 20 mg PO QHS 11/04/18 Prednisone 5 mg PO DAILY 11/04/18 Albuterol IH (ProAir) [Proair Hfa] 1 - 2 puff INHALATION Q6H PRN PRN 11/09/18 #1 inhaler Aspirin [Aspirin, Baby] 81 mg PO DAILY@0800 tab.chew 11/09/18 amlodipine 2.5 mg tablet 2.5 mg PO DAILY 07/04/19 clopidogrel 75 mg tablet 75 mg PO DAILY 07/04/19 losartan 100 mg tablet 100 mg PO DAILY 07/04/19 potassium chloride 10 mEq 20 meq PO BID tab 07/04/19 tablet,extended release Ondansetron [Zofran Odt] 4 mg PO Q8H PRN PRN #10 tab 01/22/20 Calcium Carbonate [Tums] 1,000 mg PO BIDCM 02/20/20 Ciprofloxacin [Cipro] 500 mg PO BID #14 tab 02/20/20 Metronidazole [Flagyl] 500 mg PO TID #21 tab 02/20/20 Surgical History: Surgical History (Last Reviewed 02/20/20 @ 20:[address] 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 Cesar Chandra MD) Mother Cancer Father Emphysema of lung Aunt Cancer Grandfather Vascular disease Grandmother Diabetes Brother Cancer History Items: No pertinent history Maternal Family History: Family History (Last Reviewed 02/20/20 @ 20:[address] Cesar Chandra MD) Mother Cancer Father Emphysema of lung Aunt Cancer Grandfather Vascular disease Grandmother Diabetes Brother Cancer History Items: No pertinent history Review of Systems Constitutional: Reports: Weakness. Denies: Chills, Fever, Weight Change HEENT: Denies: Head Aches, Sinus Congestion, Sinus Drainage Cardiovascular: Reports: Edema. Denies: Chest Pain, Palpitations Respiratory: Denies: Cough, Shortness of breath at rest, Sputum production Gastrointestinal: Denies: Abdominal Pain, Nausea, Vomiting Genitourinary: Denies: Dysuria Musculoskeletal: Reports: Joint stiffness - Right knee. Denies: Joint Pain, Joint Tenderness Skin: Denies: Rash, Wounds Neurological: Denies: Numbness, Tingling, Focal weakness Psychiatric: Denies: Anxiety, Depression, Homicidal Ideations, Suicidal Ideations Hematologic/ Lymphatic: Denies: Easy Bruising, Easy Bleeding VTE Information - Inpt Only VTE Present on Admission: No VTE Mechan Device Prophylaxis: None VTE Pharm Prophylaxis ordered?: Yes Patient Problems: Active and Suspected Problems (Last Reviewed 02/20/20 @ 20:[address] Cesar Chandra MD) Generalized weakness (Acute) Debility (Acute) Fall (Acute) - Physical Exam Vitals/I&O's: Vital Signs Temp Pulse Resp BP Pulse Ox 97.4 F L 90 17 134/71 H 99 02/20/20 18:51 02/20/20 18:51 02/20/20 18:51 02/20/20 18:51 02/20/20 18:51 Oxygen Delivery Method Room Air Weight: 99.337 kg Body Mass Index (BMI) 41.3 General: Alert, Oriented x3, Cooperative HEENT: Atraumatic, PERRLA, EOMI, Normocephalic Neck: Supple, No JVD, Negative Carotid Bruits Lungs: Clear to auscultation, Normal air movement Cardiovascular: Regular rate, Normal S1, Normal S2, No murmurs Abdomen: Bowel Sounds Present, Soft, Non Tender Extremities: Capillary Refill Less than 3 Seconds, Edema - Bilateral lower extremities Skin: No rashes, No breakdown Musculoskeletal: No Tenderness to Palpation of Joints or Extremities Neurological: Cranial nerves II-XII grossly intact Psych/Mental Status: Normal Affect, Appropriate Assessment/Plan All Active Problems (Last Reviewed 02/20/20 @ 20:[address] Cesar Chandra MD) Generalized weakness (Acute) Debility (Acute) Fall (Acute) Dehydration (Resolved) The patient is a 79 year old F with a significant history of polymyalgia rheumat ica; obstructive sleep apnea; osteoarthritis; CAD; and CKD stage II who presents emergency department with weakness and fall the same day after being discharged from the hospital following admission of a severe sepsis, and pancolitis. Debility and fall PT and OT to work with patient for strengthening balance training We will check vitamin D level. Check CBC and BMP. Fluid overload Check BNP Abdulaziz wrap and Kerlix roll to bilateral lower extremities Elevate bilateral lower extremities. 2 g sodium restricted diet Fluid restriction of 1,500 per day. Pancolitis Continue Flagyl and ciprofloxacin. Hypertension Blood pressure is stable in regards to her age Amlodipine, carvedilol, chlorthalidone and losartan continued. Polymyalgia rheumatica Leflunomide continued Prednisone continued. Morbid Obesity- BMI: 41.4. Complicates care. Lifestyle modification recommended. Obstructive sleep apnea: Home CPAP continued. DVT prophylaxis Subcutaneous heparin ordered OBSV E&M: 36584 Initial observation care L3
[2020-02-20 20:18] VITALS: BMI 41.4
[2020-02-20 20:50] VITALS: BP 139/87; PULSE 92; RESP 18; TEMP 36.6; O2SAT 97
[2020-02-20 21:29] VITALS: BMI 41.8
[2020-02-20 21:43] VITALS: BP 176/83; PULSE 98; RESP 16; TEMP 36.7; O2SAT 98
[2020-02-20 22:13] LABS: Vitamin D,25 Hydroxy 51.9 ng/mL
[2020-02-20] MEDS: Carvedilol 25 MG Tablet PO (22:13)
[2020-02-20] MEDS: MELATONIN 3 MG TABLET PO (22:13)
[2020-02-20] MEDS: Heparin Injection (Vial) 5,000 UNIT/ML VIAL 5000 UNIT SC (22:13)
[2020-02-20] MEDS: Ciprofloxacin 500 MG Tablet PO (22:14)
[2020-02-20] MEDS: metroNIDAZOLE 500 MG Tablet PO (22:14)
[2020-02-20] MEDS: Pravastatin 20 MG Tablet PO (22:14)
--- NOTE | 2020-02-20 22:30 | NURSING ---
pt had emesis directly following taking pills. this rn unable to visualize any actual pills in the emesis.
[2020-02-20 22:32] VITALS: BP 150/74
[2020-02-20 23:01] VITALS: O2SAT 98
--- NOTE | 2020-02-21 01:20 | ECHOD_ITS ---
Reason For Study: BILAT LEG EDEMA Procedure This was a 2D Doppler, Color Flow transthoracic echocardiogram. The exam was of adequate technical quality. Exam performed portable in patient room. Left Ventricle Normal LV size. Left ventricular systolic function is normal. The estimated ejection fraction is 70 %. No regional wall motion abnormalities noted. Right Ventricle Normal RV size. Normal systolic function. Atria The left atrium is mildly enlarged. Normal right atrium. No doppler evidence for ASD. Mitral Valve There is moderate to severe mitral annular calcification. Extension of the mitral annular calcification onto the base of the posterior mitral valve leaflet. Trivial mitral valve insufficiency. Tricuspid Valve Normal tricuspid valve. Mild tricuspid valve insufficiency. Right ventricular systolic pressure estimated to be 50 mmHg. Aortic Valve Trisinus/trileaflet aortic valve. Mild focal aortic valve calcification. Mild aortic stenosis. Pulmonic Valve The pulmonic valve is not well visualized. Great Vessels Normal sized aortic root. Calcified aortic root. Pericardium/Pleural No pericardial effusion. MMode/2D Measurements & Calculations LVIDd: 3.7 cm IVSd: 1.1 cm LVOT diam: 2.0 cm LVIDs: 2.5 cm LVPWd: 1.1 cm LVOT area: 3.1 cm2 RVDd: 3.3 cm FS: 32.6 % Ao root diam: 3.1 cm LAV(MOD-bp): 67.9 ml LVAd ap4: 24.8 cm2 LAV(MOD-bp) Indexed: 34.4 ml/m2 EDV(MOD-sp4): 65.3 ml LAV(MOD-sp2): 72.3 ml EDV(sp4-el): 67.3 ml LAV(MOD-sp4): 64.2 ml LVAs ap4: 13.4 cm2 ESV(MOD-sp4): 24.4 ml ESV(sp4-el): 24.6 ml EF(MOD-sp4): 62.6 % EF(sp4-el): 63.4 % SV(MOD-sp4): 40.9 ml SV(sp4-el): 42.7 ml LA A4 area: 21.3 cm2 LA dimension(2D): 3.8 cm RA A4 area: 17.1 cm2 Time Measurements MV dec time: 0.25 sec Doppler Measurements & Calculations MV E max gurjit: 110.4 cm/sec Lat Peak E' Gurjit: 8.0 cm/sec Med Peak E' Gurjit: 7.9 cm/sec MV A max gurjit: 104.2 cm/sec E/E' lat: 13.9 E/E' med: 14.0 MV E/A: 1.1 Ao V2 max: 196.0 cm/sec LV V1 max: 117.4 cm/sec SV(LVOT): 92.2 ml Ao max P.4 mmHg LV V1 max P.5 mmHg Ao V2 mean: 144.5 cm/sec LV V1 mean P.9 mmHg Ao mean P.1 mmHg LV V1 mean: 80.1 cm/sec Ao V2 VTI: 47.8 cm LV V1 VTI: 29.5 cm ALICIA(I,D): 1.9 cm2 ALICIA(V,D): 1.9 cm2 PA V2 max: 122.1 cm/sec TR max gurjit: 342.9 cm/sec TR max P.0 mmHg Interpretation Summary Left ventricular systolic function is normal. The estimated ejection fraction is 70 %. The left atrium is mildly enlarged. There is moderate to severe mitral annular calcification. Extension of the mitral annular calcification onto the base of the posterior mitral valve leaflet. Trivial mitral valve insufficiency. Mild tricuspid valve insufficiency. Mild focal aortic valve calcification. Mild aortic stenosis. Calcified aortic root. Right ventricular systolic pressure estimated to be 50 mmHg. Transmitral diastolic flow velocities suggest dysfunction (pseudonormal pattern). Ordering Physician: Cesar Chandra Referring Physician: RUPERTO FARFAN Performed By: Dagmar Higgins RDCS
--- NOTE | 2020-02-21 02:01 | CPS ---
pt vomited after pills this evening, no cpap started.
[2020-02-21 03:45] VITALS: BP 121/96; PULSE 81; RESP 18; TEMP 36.8; O2SAT 99
[2020-02-21 05:51] LABS: Absolute Lymphocyte Count 0.48 X10^3/uL (0.83-4.51); Absolute Neutrophil Count 5.4 X10^3/uL (2.0-7.7); Basophil# 0.05 X10^3/uL; Basophil% 0.6 % (0-1); Eosinophil# 0.14 X10^3/uL; Eosinophils% 1.8 % (0-5); Hematocrit 29.1 % (37-47); Hemoglobin 9.1 g/dL (12.0-15.0); Lymphocyte # 0.48 X10^3/ul (4.0); Lymphocyte % 6.2 % (19-41); Mean Corp Hgb Conc 31.3 g/dL (32-36); Mean Corpuscular Hgb 29.4 pg (27.0-32.0); Mean Corpuscular Volume 93.9 fL (81-99); Mean Platelet Vol. 9.7 fl (6.2-12.0); Monocyte# 1.53 X10^3/uL; Monocyte% 19.8 % (0-10); NRBC Flagged by Analyzer 0 % (0-5); POSITIVE DIFFERENTIAL YES; Platelet Count 225 K/mm3 (150-450); RBC Distribution Width CV 15.4 % (11.6-14.6); RBC Distribution Width SD 51.8 fl (35.1-43.9); White Blood Count 7.7 K/mm3 (4.4-11.0)
[2020-02-21 06:07] LABS: Anion Gap 7 (5-15); BUN 2 mg/dL (7-18); BUN/Creat Ratio 2.4 RATIO (10-20); Chloride 106 mmol/L (98-107); Creatinine, Serum 0.84 mg/dL (0.55-1.02); EST Glomerular Filtration Rate 70 mL/min (>60); Est Glom Filt Rate - Afr Amer 84 mL/min (>60); Estimated Creatinine Clearance 40.98 ml/min; Glucose 93 mg/dL (74-106); Potassium 3.2 mmol/L (3.5-5.1); Sodium Level 139 mmol/L (136-145)
[2020-02-21 06:08] LABS: Differential Indicated SCAN CRITERIA MET
[2020-02-21] MEDS: metroNIDAZOLE 500 MG Tablet PO ×2 (06:16→15:25)
[2020-02-21 06:32] LABS: Differential Comment SCANNED
[2020-02-21 06:35] LABS: Hypochromasia RARE
[2020-02-21] MEDS: Losartan Potassium 100 MG Tablet PO (07:46)
[2020-02-21] MEDS: amLODIPine 2.5 MG Tablet PO (07:46)
[2020-02-21] MEDS: Aspirin 81 MG TAB.CHEW PO (07:46)
[2020-02-21] MEDS: predniSONE 5 MG Tablet PO (07:46)
[2020-02-21] MEDS: Chlorthalidone 50 MG Tablet 12.5 MG PO (07:51)
[2020-02-21] MEDS: Calcium Carbonate 500 MG Tablet 1000 MG PO (07:51)
[2020-02-21] MEDS: Carvedilol 25 MG Tablet PO (08:05)
[2020-02-21 08:07] VITALS: BP 204/62; PULSE 85; RESP 18; TEMP 36.3; O2SAT 99
[2020-02-21 09:30] VITALS: BP 117/67; PULSE 81; RESP 18; TEMP 36.7; O2SAT 99
[2020-02-21] MEDS: Clopidogrel Bisulfate 75 MG Tablet PO (09:36)
[2020-02-21] MEDS: Pantoprazole Sodium 40 MG Tablet PO (09:36)
[2020-02-21] MEDS: Ciprofloxacin 500 MG Tablet PO (09:37)
[2020-02-21] MEDS: Leflunomide 10 MG TABLET 20 MG PO (09:37)
[2020-02-21] MEDS: Heparin Injection (Vial) 5,000 UNIT/ML VIAL 5000 UNIT SC (09:37)
--- NOTE | 2020-02-21 09:41 | PCM.PN.HOSP ---
Patient Problems: Active and Suspected Problems (Last Reviewed 02/20/20 @ 20:[address] Cesar Chandra MD) Generalized weakness (Acute) Debility (Acute) Fall (Acute) Subjective: Did well overnight, no issues. She went home yesterday after discharge and felt significantly weak and was unable to climb the stairs. We had discussed with her yesterday about going to a senior living facility however at the time she felt like she would do just fine at home. Vitals/I&O's: Vital Signs Temp Pulse Resp BP Pulse Ox 98.1 F 81 18 117/67 99 02/21/20 09:30 02/21/20 09:30 02/21/20 09:30 02/21/20 09:30 02/21/20 09:30 Oxygen Delivery Method Room Air Weight: 221 lb 1.978 oz Body Mass Index (BMI) 41.8 Intake and Output for Last 24 Hours 02/19/20 02/20/20 02/21/20 23:59 23:59 23:59 Intake Total 360 / 360 Output Total 550 / 550 Balance -190 / -190 General: Alert, Oriented x3, Cooperative, No apparent distress HEENT: Atraumatic, PERRLA, EOMI, Normocephalic Oral: Moist Mucosa Neck: Supple, No JVD Lungs: Clear to auscultation, Normal air movement, No rhonchi, No wheeze, No rales, Diminished Cardiovascular: Regular rate, Regular Rhythm, Normal S1, Normal S2, No murmurs Abdomen: Soft, Non Tender, No Hepato-splenomegaly, Passing Flatus, Distended - Apparently improved Extremities: No edema, Capillary Refill Less than 3 Seconds Skin: No rashes, No breakdown Neurological: Neuro grossly intact, Sensory exam intact to light touch and pain Psych/Mental Status: Flat Affect Laboratory Results 02/20/20 21:00: B-Natriuretic Peptide 385.0 H 02/20/20 21:00: Vitamin D 25-Hydroxy 51.9 02/21/20 05:30: WBC 7.7, RBC 3.10 L, Hgb 9.1 L, Hct 29.1 L, MCV 93.9, MCH 29.4, MCHC 31.3 L, RDW Std Deviation 51.8 H, RDW Coeff of Blaine 15.4 H, Plt Count 225, MPV 9.7, Immature Gran % (Auto) 1.600 H, Neut % (Auto) 70.0, Lymph % (Auto) 6.2 L, Mineral % (Auto) 19.8 H, Eos % (Auto) 1.8, Baso % (Auto) 0.6, Absolute Neuts (auto) 5.4, Absolute Lymphs (auto) 0.48 L, Nucleated RBC % 0, Differential Comment SCANNED, Hypochromasia RARE 02/21/20 05:30: Sodium 139, Potassium 3.2 L, Chloride 106, Carbon Dioxide 26.0, Anion Gap 7, BUN 2 L, Creatinine 0.84, Estim Creat Clear Calc 40.98, Est GFR (MDRD) Af Amer 84, Est GFR (MDRD) Non-Af 70, BUN/Creatinine Ratio 2.4 L, Glucose 93, Calcium 8.0 L Current Medications Acetaminophen (Tylenol) 650 mg PO Q6H PRN PRN PRN Reason: Pain Score 1-10/Temp > 100.7 F Albuterol Sulfate (Ventolin Aerosols) 2.5 mg INHALATION Q4H PRN PRN PRN Reason: SOB/WHEEZING Amlodipine Besylate (Norvasc) 2.5 mg PO DAILY [facility] Last Admin: 02/21/20 07:46 Dose: 2.5 mg Documented by: Aspirin (Aspirin, Baby) 81 mg PO DAILY@0800 [facility] Last Admin: 02/21/20 07:46 Dose: 81 mg Documented by: [facility] Admin: 02/21/20 07:51 Dose: 1,000 mg Documented by: Carvedilol (Coreg) 25 mg PO BID [facility] Last Admin: 02/21/20 08:05 Dose: 25 mg Documented by: Chlorthalidone (Hygroton) 12.5 mg PO DAILY [facility] Last Admin: 02/21/20 07:51 Dose: 12.5 mg Documented by: Cholecalciferol (Vitamin D (25mcg)) 2,000 unit PO DAILY [facility] Last Admin: 02/21/20 09:36 Dose: 2,000 unit Documented by: Ciprofloxacin HCl (Cipro) 500 mg PO BID [facility] Last Admin: 02/21/20 09:37 Dose: 500 mg Documented by: Clopidogrel Bisulfate (Plavix) 75 mg PO DAILY [facility] Last Admin: 02/21/20 09:36 Dose: 75 mg Documented by: Heparin Sodium (Porcine) (Heparin Na) 5,000 unit SC Q12 [facility] Last Admin: 02/21/20 09:37 Dose: 5,000 unit Documented by: Leflunomide (Leflunomide) 20 mg PO DAILY [facility] Last Admin: 02/21/20 09:37 Dose: 20 mg Documented by: Losartan Potassium (Cozaar) 100 mg PO DAILY [facility] Last Admin: 02/21/20 07:46 Dose: 100 mg Documented by: Melatonin (Melatonin) 3 mg PO QHS PRN PRN PRN Reason: INSOMNIA Last Admin: 02/20/20 22:13 Dose: 3 mg Documented by: Metronidazole (Flagyl) 500 mg PO TID [facility] Last Admin: 02/21/20 06:16 Dose: 500 mg Documented by: Ondansetron HCl (Zofran Odt) 4 mg PO Q8H PRN PRN PRN Reason: NAUSEA Pantoprazole Sodium (Protonix) 40 mg PO DAILY [facility] Last Admin: 02/21/20 09:36 Dose: 40 mg Documented by: Potassium Chloride (K-Dur) 20 meq PO BID [facility] Last Admin: 02/21/20 09:37 Dose: 20 meq Documented by: Pravastatin Sodium (Pravachol) 20 mg PO QHS [facility] Last Admin: 02/20/20 22:14 Dose: 20 mg Documented by: Prednisone () 5 mg PO DAILYCM [facility] Last Admin: 02/21/20 07:46 Dose: 5 mg Documented by: Sodium Chloride () 10 - 40 ml IV UD PRN PRN Reason: SALINE FLUSH STROKE Vital Signs/Narrative: Vital Signs Temp Pulse Resp BP Pulse Ox 02/21/20 09:30 98.1 F 81 18 117/67 99 02/21/20 08:07 97.3 F L 85 18 204/62 H 99 Medical Necessity - Tobacco Use Smoking Status: Former smoker Tobacco Use: Cigarettes Assessment/Plan All Active Problems (Last Reviewed 02/20/20 @ 20:[address] Cesar Cahndra MD) Generalized weakness (Acute) Debility (Acute) Fall (Acute) Dehydration (Resolved) 1. Weakness and inability to complete ADLs at home -This is related to problem #2 -Continue with PT/OT for evaluation -Case management for SNF placement 2. Severe sepsis secondary to pancolitis discharged on 02/19 -A week prior to presentation she had presented to the ER with just the sigmoid colitis and discharged on Augmentin, when she re-presented she had a pancolitis with significantly thickened sigmoid colon -Repeat CT scan during her last admission showed slight improvement -Leukocytosis has resolved with Cipro and Flagyl -Her abdomen is distended but soft and not significantly tender. -Repeat C. difficile testing was negative 3. HTN/PAD/HLD -Blood pressure stable though a little bit elevated,, can continue with her Coreg and Norvasc and will restart her losartan -Status post stent placement in her carotid artery -And continue a statin -Continue with aspirin and Plavix -BNP was 385, previously had been over 500 about a year ago. Previous echo in October 2018 had an EF of 60% with an RVSP of 55 mmHg -Undergoing a repeat echo this morning with fluid restriction as well as a sodium restriction 4. Polymyalgia rheumatica -Stable -Continue with prednisone and leflunomide DVT: Heparin OBSV E&M: 32333 Subsequent observation care L2
--- NOTE | 2020-02-21 13:49 | TREXTCAR_ITS ---
- Diet 02/21/20 07:36 Diet: Full Liquid Is pt able to select menu?: Yes Diet Comments: 2G sodium restricted diet Fluid restriction of 1500 cc per day - Routine Orders/Code Status Routine Lab Work: [facility] Code Status: Full Code - Therapies Physical Therapy: Eval and Treat Occupational Therapy: Eval and Treat - Allergies/Procedures Done in Hospital Allergies/Adverse Reactions: Allergies gabapentin Allergy (Verified 02/20/20 18:50) Unknown nortriptyline Allergy (Verified 02/20/20 18:50) Unknown rofecoxib [From Vioxx] Allergy (Verified 02/20/20 18:50) Unknown tacrolimus Allergy (Verified 02/20/20 18:50) Unknown morphine Adverse Reaction (Verified 02/20/20 18:50) Nausea - Type of Care/Length of Stay Estimated LOS: Convalescent Care Less Than 30 days Type of Care Needed: Skilled Rehab Potential: Good Prognosis: Good - Additional Orders/Day of Discharge Day of Discharge: 02/21/20 - Follow Up Care Primary Care Physician: Nicolas Villegas MD [Primary Care Provider] - Please follow up with your Primary Care Physician in: 3-5 days Please Follow Up With: Michael Conner MD When: 2 weeks
--- NOTE | 2020-02-21 13:52 | DS.PCM_ITS ---
Discharge Date and Diagnosis - Problem List Patient Problems: Active and Suspected Problems (Last Reviewed 02/20/20 @ 20:[address] Cesar Chandra MD) Generalized weakness (Acute) Debility (Acute) Fall (Acute) Date of Admission: 02/20/20 Date of Discharge: 02/21/20 - Primary Discharge Diagnosis Acute Problems: Active Problems (Last Reviewed 02/20/20 @ 20:[address] Cesar Chandra MD) Generalized weakness (Acute) Debility (Acute) Fall (Acute) - Secondary Discharge Diagnosis Chronic Problems: Chronic Problems (Last Reviewed 02/20/20 @ 20:[address] 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 The estimated ejection fraction is 70 %. The left atrium is mildly enlarged. There is moderate to severe mitral annular calcification. Extension of the mitral annular calcification onto the base of the posterior mitral valve leaflet. Trivial mitral valve insufficiency. Mild tricuspid valve insufficiency. Mild focal aortic valve calcification. Mild aortic stenosis. Calcified aortic root. Right ventricular systolic pressure estimated to be 50 mmHg. Transmitral diastolic flow velocities suggest dysfunction (pseudonormal pattern) Operations: None Procedures: 2-D Echocardiogram Summary of Care Provided: Per HPI: The patient is a 79 year old F with a significant history of polymyalgia rheumatica; obstructive sleep apnea; osteoarthritis; CAD; and CKD stage II who presents to the emergency department with weakness. Patient was discharged from the hospital on the same day of presentation. When she went home after walking 6 flight of stairs she fell. She attributes her fall to weakness. She called the paramedics who came to help her with her fall. Subsequently she went to her bathroom which is on the second floor. She could not get up from the commode and had to call friends to help her get up from the commode. Subsequently she came to emergency department with plan to get into a rehabilitation program. She denies injury from the fall but she is ambivalent on whether her right knee is more stiff than usual. Also, she feels swollen and she attributes her swelling to receiving IV fluids on her recent admission. Of note patient was diagnosed with a severe sepsis; and bland colitis on her recent admission to the hospital, 02/13/2020 to 02/20/2020. Hospital Course: 1. Weakness and inability to complete ADLs at [id number]-[id number]-old female who came back to the hospital after discharge because of weakness at home. She was unable to climb stairs or get off the commode at home. This is all secondary to problem #2 which she had been admitted for for over 7 days. During that previous admission she was told that she may likely need to go to a long-term facility however she refused at that time saying that she was more than able to manage at home on her own. She did get approved for transfer to the transitional care unit today and she will be discharged there and to continue her home medications as prescribed. She will need to complete both Cipro and F lagyl. She did have an echo because there was concerns for heart failure secondary to an elevated BNP, she did have a previous BNP that is been elevated over 500 about a year ago. At that time she had an echo showed an EF of 60% and an RVSP of 55 mmHg. Today she had a repeat echo which showed an EF of 70% and improved RVSP at 50 mmHg. She did not require any oxygen but will continue with a sodium and fluid restriction at this time. 2. Resolving severe sepsis secondary to pancolitis/[id number]-11-[id number]-old female who presented to the emergency room a few weeks after the onset of abdominal pain. She was initially seen on January [address] scan showed a sigmoid colitis. She was discharged on Augmentin but she said she completed the Augmentin and did not have any subsequent improvement. She presented back to the ER this time with a pancolitis spreading from her sigmoid colon all the way to her cecum. General surgery was consulted and wanted to manage her con servatively at that time. She had 2 C. difficile test both of which were negative. She was started on Cipro and Flagyl, she never had any stool studies other than the C. difficile test. She has had improvement in her symptoms, and states that she is significantly improved from where she was January 21. She was keen to be discharged yesterday however the night before she had had 10 bowel movements. The repeat C. difficile test at that time was also negative. She was feeling much better yesterday, and only had 2 bowel movement and wanted to go home today. She will be discharged on a full liquid diet. I discussed with her the plan for discharge today and she expressed understanding of the risk and benefits of going to SNF. She will need to follow-up with blood work as her potassium was low on the day of discharge at 3.2. This was also discussed with her. She will continue her home potassium chloride dosing. She will need to follow-up with general surgery in 2 weeks for possible colonoscopy. She will be discharged on ciprofloxacin and Flagyl to complete a 10 to 14-day course given her slow improvement. 3. Hypertension, peripheral artery disease, hyperlipidemia are all chronic medical conditions which complicate her care. Her home medications were continued where appropriate. Patient Problems: Active and Suspected Problems (Last Reviewed 02/20/20 @ 20:[address] Cesar Chandra MD) Generalized weakness (Acute) Debility (Acute) Fall (Acute) - Physical Exam Vitals/I&O's: Vital Signs Temp Pulse Resp BP Pulse Ox 98.1 F 81 18 117/67 99 02/21/20 09:30 02/21/20 09:30 02/21/20 09:30 02/21/20 09:30 02/21/20 09:30 Oxygen Delivery Method Room Air Weight: 221 lb 1.978 oz Body Mass Index (BMI) 41.8 Intake and Output for Last 24 Hours 02/19/20 02/20/20 02/21/20 23:59 23:59 23:59 Intake Total 640 / 640 Output Total 550 / 550 Balance 90 / 90 Laboratory Results 02/20/20 21:00: B-Natriuretic Peptide 385.0 H 02/20/20 21:00: Vitamin D 25-Hydroxy 51.9 02/21/20 05:30: WBC 7.7, RBC 3.10 L, Hgb 9.1 L, Hct 29.1 L, MCV 93.9, MCH 29.4, MCHC 31.3 L, RDW Std Deviation 51.8 H, RDW Coeff of [place] 15.4 H, Plt Count 225, MPV 9.7, Immature Gran % (Auto) 1.600 H, Neut % (Auto) 70.0, Lymph % (Auto) 6.2 L, [place] % (Auto) 19.8 H, Eos % (Auto) 1.8, Baso % (Auto) 0.6, Absolute Neuts (auto) 5.4, Absolute Lymphs (auto) 0.48 L, Nucleated RBC % 0, Differential Comment SCANNED, Hypochromasia RARE 02/21/20 05:30: Sodium 139, Potassium 3.2 L, Chloride 106, Carbon Dioxide 26.0, Anion Gap 7, BUN 2 L, Creatinine 0.84, Estim Creat Clear Calc 40.98, Est GFR (MDRD) Af Amer 84, Est GFR (MDRD) Non-Af 70, BUN/Creatinine Ratio 2.4 L, Glucose 93, Calcium 8.0 L 02/21/20 11:30: COVID-19 (MARIAM) Pending Current Medications Acetaminophen (Tylenol) 650 mg PO Q6H PRN PRN PRN Reason: Pain Score 1-10/Temp > 100.7 F Albuterol Sulfate (Ventolin Aerosols) 2.5 mg INHALATION Q4H PRN PRN PRN Reason: SOB/WHEEZING Amlodipine Besylate (Norvasc) 2.5 mg PO DAILY [facility] Last Admin: 02/21/20 07:46 Dose: 2.5 mg Documented by: Aspirin (Aspirin, Baby) 81 mg PO DAILY@0800 [facility] Last Admin: 02/21/20 07:46 Dose: 81 mg Documented by: [facility] Admin: 02/21/20 07:51 Dose: 1,000 mg Documented by: Carvedilol (Coreg) 25 mg PO BID [facility] Last Admin: 02/21/20 08:05 Dose: 25 mg Documented by: Chlorthalidone (Hygroton) 12.5 mg PO DAILY [facility] Last Admin: 02/21/20 07:51 Dose: 12.5 mg Documented by: Cholecalciferol (Vitamin D (25mcg)) 2,000 unit PO DAILY [facility] Last Admin: 02/21/20 09:36 Dose: 2,000 unit Documented by: Ciprofloxacin HCl (Cipro) 500 mg PO BID [facility] Last Admin: 09/15/20 09:37 Dose: 500 mg Documented by: Clopidogrel Bisulfate (Plavix) 75 mg PO DAILY [facility] Last Admin: 02/21/20 09:36 Dose: 75 mg Documented by: Heparin Sodium (Porcine) (Heparin Na) 5,000 unit SC Q12 [facility] Last Admin: 02/21/20 09:37 Dose: 5,000 unit Documented by: Leflunomide (Leflunomide) 20 mg PO DAILY [facility] Last Admin: 02/21/20 09:37 Dose: 20 mg Documented by: Losartan Potassium (Cozaar) 100 mg PO DAILY [facility] Last Admin: 02/21/20 07:46 Dose: 100 mg Documented by: Melatonin (Melatonin) 3 mg PO QHS PRN PRN PRN Reason: INSOMNIA Last Admin: 02/20/20 22:13 Dose: 3 mg Documented by: Metronidazole (Flagyl) 500 mg PO TID [facility] Last Admin: 02/21/20 06:16 Dose: 500 mg Documented by: Ondansetron HCl (Zofran Odt) 4 mg PO Q8H PRN PRN PRN Reason: NAUSEA Pantoprazole Sodium (Protonix) 40 mg PO DAILY [facility] Last Admin: 02/21/20 09:36 Dose: 40 mg Documented by: Potassium Chloride (K-Dur) 20 meq PO BID [facility] Last Admin: 02/21/20 09:37 Dose: 20 meq Documented by: Pravastatin Sodium (Pravachol) 20 mg PO QHS [facility] Last Admin: 02/20/20 22:14 Dose: 20 mg Documented by: [facility] () [facility] Admin: 02/21/20 07:46 Dose: 5 mg Documented by: Sodium Chloride () 10 - 40 ml IV UD PRN PRN Reason: SALINE FLUSH Home Medications: Medications to take at Discharge Pantoprazole Sodium [Protonix] 40 mg PO DAILY 12/15/14 Acetaminophen [Tylenol Arthritis] 650 mg PO Q4H PRN PRN 11/04/18 Carvedilol 25 mg PO BID 11/04/18 Chlorthalidone 12.5 mg PO DAILY 11/04/18 Cholecalciferol (VIT D3) [Vitamin D3] 2,000 unit PO DAILY 11/04/18 Coenzyme [id number]-Asb E [Co Q-10 with l-Carnitine Sftgl] 1 cap PO DAILY 11/04/18 Leflunomide 20 mg PO DAILY 11/04/18 Pravastatin Sodium 20 mg PO QHS 11/04/18 Prednisone 5 mg PO DAILY 11/04/18 Albuterol IH (ProAir) [Proair Hfa] 1 - 2 puff INHALATION Q6H PRN PRN #1 inhaler 11/09/18 Aspirin [Aspirin, Baby] 81 mg PO DAILY@0800 tab.chew 11/09/18 amlodipine 2.5 mg tablet 2.5 mg PO DAILY 07/04/19 clopidogrel 75 mg tablet 75 mg PO DAILY 07/04/19 losartan 100 mg tablet 100 mg PO DAILY 07/04/19 potassium chloride 10 mEq tablet,extended release 20 meq PO BID tab 07/04/19 Ondansetron [Zofran Odt] 4 mg PO Q8H PRN PRN #10 tab 01/22/20 Calcium Carbonate [Tums] 1,000 mg PO BIDCM 02/20/20 Ciprofloxacin [Cipro] 500 mg PO BID #14 tab 02/20/20 Metronidazole [Flagyl] 500 mg PO TID #21 tab 02/20/20 Primary Care Physician: Nicolas Villegas MD [Primary Care Provider] - Please follow up with your Primary Care Physician in: 3-5 days Please Follow Up With: Michael Conner MD When: 2 weeks Disposition: Detention facility Minutes spent on discharge:: 35 Patient Condition:: Stable Medical Necessity - Tobacco Use Smoking Status: Former smoker Tobacco Use: Cigarettes Meaningful Use Info Meaningful Use Diagnoses (Choose all that apply): None applicable OBSV E&M: 28858 Observation care discharge
--- NOTE | 2020-02-21 14:28 | CASEMGMT ---
Social Work Note TUNDE reviewed notes, pt will likely need SNF placement. SW in to speak with pt. SW introduced self and role at [facility]. Pt is alert and orientated x3. Pt agrees that she needs SNF placement at discharge. TUNDE provided pt with list of SNF that accept pt's insurance. Pt states first choice is [facility]. TUNDE explained referral process. Pt states understanding. TUNDE placed a call to [facility] in [facility]. TCU is able to accept pt today. TUNDE updated pt. TUNDE updated physician. RN updated. 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
[2020-02-21 15:06] VITALS: BP 195/74; PULSE 75; RESP 18; TEMP 37.1; O2SAT 98
== END 2020-02-21 16:15 | disposition skilled nursing facility (03) ==
LOC: ED 20:07 → MS3 20:30
PROVIDERS: Admitting Provider Hospitalist; Emergency Provider Emergency Medicine; PCP Family Medicine; Visit Provider Family Medicine
DX: R53.1 Weakness (principal); R53.81 Other malaise; I11.0 Hypertensive heart disease with heart failure; N18.2 Chronic kidney disease, stage 2 (mild); G47.33 Obstructive sleep apnea (adult) (pediatric); E78.5 Hyperlipidemia, unspecified; M35.3 Polymyalgia rheumatica; I27.20 Pulmonary hypertension, unspecified; I25.10 Atherosclerotic heart disease of native coronary artery without angina pectoris; R73.9 Hyperglycemia, unspecified; M19.90 Unspecified osteoarthritis, unspecified site; J44.9 Chronic obstructive pulmonary disease, unspecified; Z87.891 Personal history of nicotine dependence; Z79.899 Other long term (current) drug therapy; Z79.82 Long term (current) use of aspirin; Z79.52 Long term (current) use of systemic steroids; Z79.02 Long term (current) use of antithrombotics/antiplatelets; I25.2 Old myocardial infarction; Z68.41 Body mass index [BMI] 40.0-44.9, adult; E66.01 Morbid (severe) obesity due to excess calories; Z86.19 Personal history of other infectious and parasitic diseases; Z87.19 Personal history of other diseases of the digestive system; I73.9 Peripheral vascular disease, unspecified
CPT/HCPCS: 36415; 80048; 82306; 83880; 85025; 87635; 93306; 96372; 97162; 97166; 99218; 99283; Q9957; A4216; G0378; U0003

== ENCOUNTER 2020-02-21 16:25 | Inpatient (IN) | payer MEDICARE, OTHER, SELFPAY ==
[2020-02-20 21:29] VITALS: BMI 41.8
[2020-02-21 16:37] VITALS: BP 146/77; PULSE 80; RESP 18; TEMP 36.8; O2SAT 98; BMI 41.2
[2020-02-21] MEDS: Carvedilol 25 MG Tablet PO (18:45)
[2020-02-21] MEDS: Calcium Carbonate 500 MG Tablet 1000 MG PO (18:45)
[2020-02-21 19:00] VITALS: BP 146/77; PULSE 80; RESP 18; TEMP 36.8; O2SAT 98
--- NOTE | 2020-02-21 20:00 | RAD_ITS ---
STUDY: X-RAY - ABDOMEN/PELVIS REASON FOR EXAM: Female, 79 years old. DIARRHEA TECHNIQUE: 3 AP supine views of the abdomen and pelvis. COMPARISON: CT 02/17/2020 FINDINGS: Normal visualized lung bases. Multiple dilated small bowel loops measuring up to 4.4 cm in diameter. There is no demonstrated free abdominal air. The visualized liver, spleen and kidneys are grossly normal in size and morphology. Clips in the right groin. Vascular calcifications. Degenerative lumbar changes. Left hip arthroplasty. RAD/Abdomen Single View IMPRESSION: Multiple dilated small bowel loops measuring up to 4.4 cm in diameter. Differential includes ileus, enteritis, and mechanical obstruction. Electronically Signed: Bassem Kurtz MD at 20:57 EDT Tel , Service support ,
[2020-02-21] MEDS: Ciprofloxacin 500 MG Tablet PO (20:33)
[2020-02-21] MEDS: metroNIDAZOLE 500 MG Tablet PO (20:34)
[2020-02-21] MEDS: Pravastatin 20 MG Tablet PO (20:35)
[2020-02-21] MEDS: Nystatin Powder 15gm Bottle 1 APPLIC TOPICAL (21:08)
[2020-02-21] MEDS: Menthol/Lanolin/Calamine/Znox 113 GM Tube 1 APPLIC TOPICAL (21:10)
--- NOTE | 2020-02-21 21:18 | HP.PCM_ITS ---
Problem List (1) Pancolitis Status: Acute (2) Diarrhea Status: Acute (3) Ileus Status: Acute (4) Lymphedema Status: Chronic (5) Hypertension Status: Chronic (6) Chronic kidney disease, stage 2 (mild) Status: Chronic (7) GERD (gastroesophageal reflux disease) Status: Chronic (8) Coronary artery disease Status: Chronic (9) Polymyalgia rheumatica Status: Chronic (10) Debility Status: Acute (11) Fall Status: Acute (12) Pulmonary hypertension Status: Chronic Comment: RVSP 55 (13) COPD (chronic obstructive pulmonary disease) Status: Chronic Qualifiers: (14) AILYN (obstructive sleep apnea) Status: Chronic Comment: AHI 115 and titrated to nasal CPAP 14 cm of water (15) Renal artery stenosis Status: Chronic (16) HLD (hyperlipidemia) Status: Chronic Qualifiers: History of Present Illness Date of Admission: 02/21/20 Chief Complaint: Here for rehabilitation, strengthening, prior to discharge home alone. 02/20/20 The patient is a 79 year old Female with below past medical history presented to [facility] Emergency Department with fall. 02/17/20 CT abdomen/pelvis showed colitis improved, small bilateral pleura ef fusions, with bibasilar atelectasis, perihepatic fluid. Discharged from [facility] same day after treatment of pancolitis, went home, fell down. Unable to get off toilet, feels she needs rehab. 02/20/20 Admit to Hospital for placement. PT/OT. 02/21/20 Echo Left ventricular systolic function normal. EF 70%. Mild Aortic stenosis. Right ventricular systolic pressure 50mm HG. C. difficile negative x 3. 02/21/20 Admit to TCU with debility, here for rehabilitation, strengthening, prior to discharge home alone. Resident c/o diarrhea, X-ray of abdomen shows ileus. Past Medical History Past Medical History (Chronic Problems): Chronic Problems (Last Reviewed 02/20/20 @ 20:[address] Cesar Chandra MD) Polymyalgia rheumatica (Chronic) Lymphedema (Chronic) Hypertension (Chronic) Chronic kidney disease, stage 2 (mild) (Chronic) GERD (gastroesophageal reflux disease) (Chronic) Coronary artery disease (Chronic) BMI 36.0-36.9,adult (Chronic) Pulmonary hypertension (Chronic) RVSP 55 COPD (chronic obstructive pulmonary disease) (Chronic) AILYN (obstructive sleep apnea) (Chronic) AHI 115 and titrated to nasal CPAP 14 cm of water Atherosclerotic heart disease of nondalton coronary artery without angina pectoris (Chronic) Chronic renal insufficiency, stage II (mild) (Chronic) Hyperglycemia, unspecified (Chronic) Carotid stenosis (Chronic) Renal artery stenosis (Chronic) HLD (hyperlipidemia) (Chronic) Benign essential hypertension (Chronic) Medical History: Medical History (Last Reviewed 02/20/20 @ 20:[address] Cesar Chandra MD) Atherosclerotic heart disease of [place] coronary artery without angina pectoris (Chronic) I25.10 Acute respiratory failure with hypoxia (Inactive) J96.01 Right lower lobe pneumonia (Inactive) J18.1 Sinus tachycardia by electrocardiogram (Inactive) R00.0 Chronic renal insufficiency, stage II (mild) (Chronic) N18.2 Hyperglycemia, unspecified (Chronic) R73.9 Carotid stenosis (Chronic) I65.29 Renal artery stenosis (Chronic) I70.1 HLD (hyperlipidemia) (Chronic) E78.5 Benign essential hypertension (Chronic) I10 Acute kidney insufficiency N28.9 NSTEMI (non-ST elevated myocardial infarction) I21.4 Barretts esophagus K22.70 Cerebrovascular disease I67.9 Former smoker, stopped smoking many years ago Z87.891 History of bleeding peptic ulcer Z87.11 Osteoarthritis Dehydration (Resolved) E86.0 Pneumonia J18.9 Severe sepsis A41.9, R65.20 Allergies gabapentin Allergy (Verified 02/20/20 18:50) Unknown nortriptyline Allergy (Verified 02/20/20 18:50) Unknown rofecoxib [From Vioxx] Allergy (Verified 02/20/20 18:50) Unknown tacrolimus Allergy (Verified 02/20/20 18:50) Unknown morphine Adverse Reaction (Verified 02/20/20 18:50) Nausea Home Medications: Ambulatory Orders Medication Instructions Recorded Pantoprazole Sodium [Protonix] 40 mg PO DAILY 12/15/14 Acetaminophen [Tylenol Arthritis] 650 mg PO Q4H PRN PRN 11/04/18 Carvedilol 25 mg PO BID 11/04/18 Chlorthalidone 12.5 mg PO DAILY 11/04/18 Cholecalciferol (VIT D3) [Vitamin 2,000 unit PO DAILY 11/04/18 D3] Coenzyme [id number] [Co 1 cap PO DAILY 11/04/18 Q-10 with l-Carnitine Sftgl] Leflunomide 20 mg PO DAILY 11/04/18 Pravastatin Sodium 20 mg PO QHS 11/04/18 Prednisone 5 mg PO DAILY 11/04/18 Albuterol IH (ProAir) [Proair Hfa] 1 - 2 puff INHALATION Q6H PRN PRN 11/09/18 #1 inhaler Aspirin [Aspirin, Baby] 81 mg PO DAILY@0800 tab.chew 11/09/18 amlodipine 2.5 mg tablet 2.5 mg PO DAILY 07/04/19 clopidogrel 75 mg tablet 75 mg PO DAILY 07/04/19 losartan 100 mg tablet 100 mg PO DAILY 07/04/19 potassium chloride 10 mEq 20 meq PO BID tab 07/04/19 tablet,extended release Ondansetron [Zofran Odt] 4 mg PO Q8H PRN PRN #10 tab 01/22/20 Calcium Carbonate [Tums] 1,000 mg PO BIDCM 02/20/20 Ciprofloxacin [Cipro] 500 mg PO BID #14 tab 02/20/20 Metronidazole [Flagyl] 500 mg PO TID #21 tab 02/20/20 Surgical History: Surgical History (Last Reviewed 02/20/20 @ 20:[address] Cesar Chandra MD) H/O carotid endarterectomy Z98.890 History of cholecystectomy Z90.49 History of hysterectomy Z90.710 History of left hip replacement Z96.642 History of total right knee replacement Z96.651 Surgical History: appendectomy, cholecystectomy, hysterectomy, total hip arthroplasty - Left., total knee arthroplasty - Right., - - Exploratory laparotomy, carotid endarterectomy. 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 Cesar Chandra MD) Mother Cancer Father Emphysema of lung Aunt Cancer Grandfather Vascular disease Grandmother Diabetes Brother Cancer History Items: No pertinent history Maternal Family History: Family History (Last Reviewed 02/20/20 @ 20:[address] Cesar Chandra MD) Mother Cancer Father Emphysema of lung Aunt Cancer Grandfather Vascular disease Grandmother Diabetes Brother Cancer History Items: No pertinent history Review of Systems Constitutional: Denies: Chills, Fever, Weight Change HEENT: Denies: Head Aches, Sinus Congestion, Sinus Drainage Cardiovascular: Denies: Chest Pain, Palpitations Respiratory: Denies: Cough, Shortness of breath at rest, Sputum production Gastrointestinal: Reports: Diarrhea. Denies: Abdominal Pain, Nausea, Vomiting Genitourinary: Denies: Dysuria Musculoskeletal: Denies: Joint Pain, Joint Tenderness Skin: Denies: Rash, Wounds Neurological: Denies: Numbness, Tingling, Focal weakness Psychiatric: Denies: Anxiety, Depression, Homicidal Ideations, Suicidal Ideations Hematologic/ Lymphatic: Denies: Easy Bruising, Easy Bleeding VTE Information - Inpt Only VTE Present on Admission: No VTE Mechan Device Prophylaxis: Knee High KOJO Hose VTE Pharm Prophylaxis ordered?: No Reason prophylaxis not ordered:: Medical Contraindication Patient Problems: Active and Suspected Problems (Last Reviewed 02/20/20 @ 20:[address] Cesar Chandra MD) Pancolitis (Acute) Diarrhea (Acute) Ileus (Acute) - Physical Exam Vitals/I&O's: Vital Signs Temp Pulse Resp BP Pulse Ox 98.3 F 80 18 146/77 H 98 02/21/20 16:37 02/21/20 16:37 02/21/20 16:37 02/21/20 16:37 02/21/20 16:37 Oxygen Delivery Method Room Air Weight: 98.94 kg Body Mass Index (BMI) 41.2 General: Alert, Oriented x3, Cooperative HEENT: Atraumatic, PERRLA, EOMI, Normocephalic Neck: Supple, No JVD, Negative Carotid Bruits Lungs: Clear to auscultation, Normal air movement Cardiovascular: Regular rate, No murmurs Abdomen: Bowel Sounds Present, Soft, Non Tender, Distended Extremities: No edema, Capillary Refill Less than 3 Seconds Skin: No rashes, No breakdown Musculoskeletal: No Tenderness to Palpation of Joints or Extremities Neurological: Cranial nerves II-XII grossly intact Psych/Mental Status: Normal Affect, Appropriate Current Medications Acetaminophen (Tylenol) 650 mg PO Q4H PRN PRN PRN Reason: Pain Score 1-10/10 Albuterol Sulfate (Ventolin Hfa (Sp)) 1 - 2 puff INHALATION Q6H PRN PRN PRN Reason: SOB &/OR WHEEZING Amlodipine Besylate (Norvasc) 2.5 mg PO DAILY [facility] Aspirin (Aspirin, Baby) 81 mg PO DAILY@0800 [facility] Calamine/Phenol (Calmoseptine Ointment) 1 applic TOPICAL BID [facility]; Protocol Last Admin: 02/21/20 21:10 Dose: 1 applicatio Documented by: [facility] ([facility]) [facility] Last Admin: 02/21/20 18:45 Dose: 1,000 mg Documented by: Carvedilol (Coreg) 25 mg PO BID [facility] Last Admin: 02/21/20 18:45 Dose: 25 mg Documented by: Chlorthalidone (Hygroton) 12.5 mg PO DAILY [facility] Cholecalciferol (Vitamin D (25mcg)) 2,[facility] Ciprofloxacin HCl (Cipro) 500 mg PO BID [facility] Last Admin: 02/21/20 20:33 Dose: 500 mg Documented by: Clopidogrel Bisulfate (Plavix) 75 mg PO DAILY [facility] Leflunomide (Leflunomide) 20 mg PO DAILY [facility] Losartan Potassium (Cozaar) 100 mg PO DAILY [facility] Metronidazole (Flagyl) 500 mg PO TID [facility] Last Admin: 02/21/20 20:34 Dose: 500 mg Documented by: Nystatin (Mycostatin Powder) 1 applic TOPICAL BID [facility]; Protocol Last Admin: 02/21/20 21:08 Dose: 1 applicatio Documented by: Ondansetron HCl (Zofran Odt) 4 mg PO Q8H PRN PRN PRN Reason: NAUSEA Pantoprazole Sodium (Protonix) 40 mg PO DAILY [facility] Potassium Chloride (K-Dur) [facility] meq [facility] Pravastatin Sodium (Pravachol) 20 mg PO QHS [facility] Last Admin: 02/21/20 20:35 Dose: 20 mg Documented by: Prednisone () 5 mg PO DAILY@0800 [facility] Tuberculin PPD (Tubersol, Aplisol, Ppd) 5 tu ID X1 ONE Stop: 02/22/20 10:01 Tuberculin PPD (Tubersol, Aplisol, Ppd) 5 tu ID X1 ONE Stop: 02/29/20 10:01 Assessment/Plan All Active Problems (Last Reviewed 02/20/20 @ 20:[address] Cesar Chandra MD) Generalized weakness (Acute) Debility (Acute) Fall (Acute) Pancolitis (Acute) Diarrhea (Acute) Ileus (Acute) Dehydration (Resolved) 79 year old female with below past medical history recently hospitalized for pancolitis, admitted to TCU with debility, here for rehabilitation, strengthening, prior to discharge home alone. * Debility - PT/OT. * Pain - Tylenol 1000MG Q6H PRN pain (1-10). * Bowel - Hold, resident has diarrhea. * Adult immunization - Administer Prevnar 13, Pneumovax 23, Fluzone as appropriate. * DVT prophylaxis - Hold, may need procedure, and already on dual antiplatelet therapy. * COPD - Albuterol 1-2 puff Q6H PRN. * Hypertension - Coreg 25MG BID, Losartan 100MG daily, Chlorthalidone 12.5MG daily, Amlodipine 2.5MG daily. * Coronary Artery Disease - Coreg 25MG BID, Losartan 100MG daily, Plavix 75MG daily, Aspirin 81MG daily. * GERD - Pantoprazole 40MG daily, TUMS 1000MG BID. * Vitamin D deficiency - D3 2000IU daily. * Pancolitis - Cipro 500MG BID, Flagyl 500MG TID thru 02/28/20. * PMR - Leucovorin 20MG daily, Prednisone 5MG daily. * Skin irritation - Calmoseptine topical BID. * Tinea Corporis - Nystatin powder BID. * Nausea - Zofran ODT 4MG Q8H PRN. * Hypokalemia - K-Dur 20MEQ BID. * Hyperlipidemia - Pravastatin 20MG QHS. * Ileus - Consult General Surgery.
[2020-02-21 22:00] VITALS: PULSE 60
[2020-02-21] MEDS: Acetaminophen 500 MG Tablet 1000 MG PO (23:09)
[2020-02-22 01:36] VITALS: BP 117/60; PULSE 70; RESP 18; TEMP 36.3; O2SAT 97
[2020-02-22] MEDS: Pantoprazole Sodium 40 MG Tablet PO (04:53)
[2020-02-22] MEDS: amLODIPine 2.5 MG Tablet PO (04:53)
[2020-02-22] MEDS: Clopidogrel Bisulfate 75 MG Tablet PO (04:53)
[2020-02-22] MEDS: Chlorthalidone 50 MG Tablet 12.5 MG PO (04:54)
[2020-02-22] MEDS: Leflunomide 10 MG TABLET 20 MG PO (04:54)
[2020-02-22] MEDS: Carvedilol 25 MG Tablet PO ×2 (04:54→17:21)
[2020-02-22] MEDS: Ciprofloxacin 500 MG Tablet PO ×2 (04:55→17:21)
[2020-02-22] MEDS: metroNIDAZOLE 500 MG Tablet PO ×3 (04:55→20:41)
[2020-02-22] MEDS: Nystatin Powder 15gm Bottle 1 APPLIC TOPICAL ×2 (04:57→15:36)
[2020-02-22] MEDS: Losartan Potassium 100 MG Tablet PO (04:57)
[2020-02-22] MEDS: Menthol/Lanolin/Calamine/Znox 113 GM Tube 1 APPLIC TOPICAL ×2 (04:57→15:36)
[2020-02-22 05:33] LABS: Absolute Lymphocyte Count 0.57 X10^3/uL (0.83-4.51); Absolute Neutrophil Count 4.7 X10^3/uL (2.0-7.7); Basophil# 0.02 X10^3/uL; Basophil% 0.3 % (0-1); Eosinophil# 0.15 X10^3/uL; Eosinophils% 2.2 % (0-5); Hematocrit 30.5 % (37-47); Hemoglobin 9.5 g/dL (12.0-15.0); Lymphocyte # 0.57 X10^3/ul (4.0); Lymphocyte % 8.2 % (19-41); Mean Corp Hgb Conc 31.1 g/dL (32-36); Mean Corpuscular Hgb 29.3 pg (27.0-32.0); Mean Corpuscular Volume 94.1 fL (81-99); Mean Platelet Vol. 9.4 fl (6.2-12.0); Monocyte# 1.38 X10^3/uL; Monocyte% 19.9 % (0-10); NRBC Flagged by Analyzer 0 % (0-5); Neutrophil # 4.72 X10^3/uL (2.7-7.7); Neutrophil % 68.2 % (47-70); POSITIVE DIFFERENTIAL YES; Platelet Count 235 K/mm3 (150-450); RBC Distribution Width CV 15.6 % (11.6-14.6); Red Blood Count 3.24 M/mm3 (4.2-5.4); White Blood Count 6.9 K/mm3 (4.4-11.0)
[2020-02-22 05:38] LABS: Differential Indicated SCAN CRITERIA MET
[2020-02-22 05:48] LABS: Anion Gap 5 (5-15); BUN 3 mg/dL (7-18); BUN/Creat Ratio 3.1 RATIO (10-20); Calcium,Total 8.7 mg/dL (8.5-10.1); Chloride 105 mmol/L (98-107); Creatinine, Serum 0.98 mg/dL (0.55-1.02); EST Glomerular Filtration Rate 58 mL/min (>60); Est Glom Filt Rate - Afr Amer 71 mL/min (>60); Estimated Creatinine Clearance 35.13 ml/min; Glucose 96 mg/dL (74-106); Potassium 3.7 mmol/L (3.5-5.1); Sodium Level 137 mmol/L (136-145)
[2020-02-22 06:06] LABS: Differential Comment SCANNED
--- NOTE | 2020-02-22 08:30 | NURSING ---
Received call from Dr. Cortez stating Dr. Conner was to be consulted as he has been caring for the patient.
[2020-02-22] MEDS: predniSONE 5 MG Tablet PO (08:42)
[2020-02-22] MEDS: Calcium Carbonate 500 MG Tablet 1000 MG PO ×2 (08:42→17:20)
[2020-02-22] MEDS: Aspirin 81 MG TAB.CHEW PO (08:42)
--- NOTE | 2020-02-22 08:56 | NURSING ---
Received call from Dr. Conner that pt is to have a repeat CT of the abdomen with IV and PO contrast, order repeated back, will add order.
[2020-02-22] MEDS: Tuberculin,Purif.prot.deriv. 50 TU/ML Vial 5 ML ID (10:01)
--- NOTE | 2020-02-22 11:31 | CASEMGMT ---
Social Work SW spoke with pt regarding end of life issues. At this time pt would like to be full code with intubation and feeding tube. MOLST form completed. SW spoke with pt about discharge plan. Pt had been living with her brother, and while she does not feel brother would harm her, she no longer feels welcome in his home. Pt had been considering different housing options prior to TCU placement, however she now feels she is not able to live alone. 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 PT stating financial concerns and pt discussed Medicaid and need to complete application. Pt stating her assisted choices are [facility], [place], [place] and [facility]. Pt made aware SW will need to find a facility that accepts Medicaid pending and has care home beds available. Pt does not have Living will or Health Care POA but would like to complete these while here. Nursing came in as pt needed taken to procedure. SW will followup for Medicaid application and advanced care planning. SARAH Johnson
[2020-02-22 13:58] VITALS: BP 137/69; PULSE 84; RESP 18; TEMP 36.7; O2SAT 97
--- NOTE | 2020-02-22 13:59 | PCM.PN.SRG ---
Patient Problems: Active and Suspected Problems (Last Reviewed 02/20/20 @ 20:[address] Cesar Chandra MD) Pancolitis (Acute) Diarrhea (Acute) Ileus (Acute) Subjective: Patient still having significant amounts of diarrhea. I repeated the CAT scan which showed some interval improvement but not resolution completely of the colitis. - Physical Exam Vitals/I&O's: Vital Signs Temp Pulse Resp BP Pulse Ox 98.0 F 84 18 207/98 H 97 02/22/20 13:58 02/22/20 13:58 02/22/20 13:58 02/22/20 13:58 02/22/20 13:58 Oxygen Delivery Method Room Air Weight: 218 lb 3.2 oz Body Mass Index (BMI) 41.2 Intake and Output for Last 24 Hours 02/20/20 02/21/20 02/22/20 23:59 23:59 23:59 Intake Total 560 / 560 580 / 580 Balance 560 / 560 580 / 580 Laboratory Results 02/22/20 05:22: WBC 6.9, RBC 3.24 L, Hgb 9.5 L, Hct 30.5 L, MCV 94.1, MCH 29.3, MCHC 31.1 L, RDW Std Deviation 53.0 H, RDW Coeff of Blaine 15.6 H, Plt Count 235, MPV 9.4, Immature Gran % (Auto) 1.200 H, Neut % (Auto) 68.2, Lymph % (Auto) 8.2 L, [place] % (Auto) 19.9 H, Eos % (Auto) 2.2, Baso % (Auto) 0.3, Absolute Neuts (auto) 4.7, Absolute Lymphs (auto) 0.57 L, Nucleated RBC % 0, Differential Comment SCANNED 02/22/20 05:22: Sodium 137, Potassium 3.7, Chloride 105, Carbon Dioxide 27.0, Anion Gap 5, BUN 3 L, Creatinine 0.98, Estim Creat Clear Calc 35.13, Est GFR (MDRD) Af Amer 71, Est GFR (MDRD) Non-Af 58 L, BUN/Creatinine Ratio 3.1 L, Glucose 96, Calcium 8.7 02/22/20 12:26: COVID-19 (MARIAM) Pending Current Medications Acetaminophen (Tylenol) 1,000 mg PO Q6H PRN PRN PRN Reason: Pain Score 1-10/10 Last Admin: 02/21/20 23:09 Dose: 1,000 mg Documented by: Albuterol Sulfate (Ventolin Hfa (Sp)) 1 - 2 puff INHALATION Q6H PRN PRN PRN Reason: SOB &/OR WHEEZING Amlodipine Besylate (Norvasc) 2.5 mg PO DAILY [facility] Last Admin: 02/22/20 04:53 Dose: 2.5 mg Documented by: Aspirin (Aspirin, Baby) 81 mg PO DAILY@0800 [facility] Last Admin: 02/22/20 08:42 Dose: 81 mg Documented by: Calamine/Phenol (Calmoseptine Ointment) 1 applic TOPICAL BID [facility]; Protocol Last Admin: 02/22/20 04:57 Dose: 1 applicatio Documented by: Calcium [facility] ([facility]) [facility] Last Admin: 02/22/20 08:42 Dose: 1,000 mg Documented by: Carvedilol (Coreg) 25 mg PO BID [facility] Last Admin: 02/22/20 04:54 Dose: 25 mg Documented by: Chlorthalidone (Hygroton) 12.5 mg PO DAILY [facility] Last Admin: 02/22/20 04:54 Dose: 12.5 mg Documented by: Cholecalciferol (Vitamin D (25mcg)) [facility] Last Admin: 02/22/20 08:42 Dose: 2,000 unit Documented by: Ciprofloxacin HCl (Cipro) 500 mg PO BID [facility] Stop: 02/28/20 23:59 Last Admin: 02/22/20 04:55 Dose: 500 mg Documented by: Clopidogrel Bisulfate (Plavix) 75 mg PO DAILY [facility] Last Admin: 02/22/20 04:53 Dose: 75 mg Documented by: Emollient Ointment (Eucerin Intensive Repair) 1 applic TOPICAL 4X/DAY PRN PRN; Protocol PRN Reason: Dry Skin Leflunomide (Leflunomide) 20 mg PO DAILY [facility] Last Admin: 02/22/20 04:54 Dose: 20 mg Documented by: Losartan Potassium (Cozaar) 100 mg PO DAILY [facility] Last Admin: 02/22/20 04:57 Dose: 100 mg Documented by: Melatonin (Melatonin) 10 mg PO QHS PRN PRN Reason: INSOMNIA Metronidazole (Flagyl) 500 mg PO TID [facility] Stop: 02/28/20 23:59 Last Admin: 02/22/20 04:55 Dose: 500 mg Documented by: Nystatin (Mycostatin Powder) 1 applic TOPICAL BID [facility]; Protocol Last Admin: 02/22/20 04:57 Dose: 1 applicatio Documented by: Ondansetron HCl (Zofran Odt) 4 mg PO Q8H PRN PRN PRN Reason: NAUSEA Pantoprazole Sodium (Protonix) 40 mg PO DAILY [facility] Last Admin: 02/22/20 04:53 Dose: 40 mg Documented by: Potassium Chloride (K-Dur) 20 meq PO BIDCM [facility] Last Admin: 02/22/20 08:42 Dose: 20 meq Documented by: Pravastatin Sodium (Pravachol) 20 mg PO QHS [facility] Last Admin: 02/21/20 20:35 Dose: 20 mg Documented by: Prednisone () 5 mg PO DAILY@0800 [facility] Last Admin: 02/22/20 08:42 Dose: 5 mg Documented by: Sodium Chloride/Electrolytes (Nulytely) 4,000 ml PO X1 ONE Stop: 02/22/20 13:58 Tuberculin PPD (Tubersol, Aplisol, Ppd) 5 tu ID X1 ONE Stop: 02/29/20 10:01 Medical Necessity - Tobacco Use Smoking Status: Former smoker Tobacco Use: Non-smoker Assessment/Plan All Active Problems (Last Reviewed 02/20/20 @ 20:[address] Cesar Chandra MD) Generalized weakness (Acute) Debility (Acute) Fall (Acute) Pancolitis (Acute) Diarrhea (Acute) Ileus (Acute) Dehydration (Resolved) Plan will be to perform a colonoscopy on this patient tomorrow Inpatient E&M: [id number] [facility] L[facility]
--- NOTE | 2020-02-22 14:22 | NURSING ---
Addendum entered by Amanda Lancaster 02/22/20 16:19: Orders cancelled per Dr. Conner Original Note: Diet changed to clear liquid for the rest of today and pt to only have beta-blockers and BP meds tomorrow morning, per Endoscopy.
[2020-02-22] MEDS: Electrolyte Solution/Peg's 4000 ML PO (15:27)
--- NOTE | 2020-02-22 15:53 | NURSING ---
Finance Controller Note: Attempted to complete activities assessment with resident. Requested to complete tomorrow. Will visit tomorrow to complete assessment.
--- NOTE | 2020-02-22 16:20 | NURSING ---
Dr. Conner's office called and cancelled the colonoscopy for tomorrow, stating Dr. Conner did not realize the patient was taking Plavix and will have to schedule the colonoscopy for a later date. His office will call tomorrow to inform us of when the pt can have the procedure.
[2020-02-22] MEDS: Pravastatin 20 MG Tablet PO (20:42)
[2020-02-23 05:57] VITALS: BP 158/79; PULSE 88; RESP 18; TEMP 36.6; O2SAT 94
[2020-02-23] MEDS: amLODIPine 2.5 MG Tablet PO (06:06)
[2020-02-23] MEDS: metroNIDAZOLE 500 MG Tablet PO ×3 (06:06→21:16)
[2020-02-23] MEDS: Chlorthalidone 50 MG Tablet 12.5 MG PO (06:06)
[2020-02-23] MEDS: Carvedilol 25 MG Tablet PO ×2 (06:06→17:19)
[2020-02-23] MEDS: Leflunomide 10 MG TABLET 20 MG PO (06:06)
[2020-02-23] MEDS: Pantoprazole Sodium 40 MG Tablet PO (06:06)
[2020-02-23] MEDS: Losartan Potassium 100 MG Tablet PO (06:06)
[2020-02-23] MEDS: Ciprofloxacin 500 MG Tablet PO ×2 (06:06→17:19)
[2020-02-23] MEDS: Menthol/Lanolin/Calamine/Znox 113 GM Tube 1 APPLIC TOPICAL ×2 (06:13→17:21)
[2020-02-23] MEDS: Nystatin Powder 15gm Bottle 1 APPLIC TOPICAL ×2 (06:13→17:21)
[2020-02-23] MEDS: Aspirin 81 MG TAB.CHEW PO (07:56)
[2020-02-23] MEDS: Calcium Carbonate 500 MG Tablet 1000 MG PO ×2 (07:57→17:19)
[2020-02-23] MEDS: predniSONE 5 MG Tablet PO (07:57)
[2020-02-23 14:13] VITALS: BP 134/62; PULSE 79; RESP 17; TEMP 36.8; O2SAT 97
--- NOTE | 2020-02-23 14:25 | NURSING ---
Addendum entered by Rola Koch 02/23/20 14:40: UPDATED R' OF NEW DATE Original Note: DR PEREZ CALLED. STATES THE PLAN FOR COLONOSCOPY IS MONDAY 02/26. STATES R' MAY TAKE ASA BUT HOLD PLAVIX UNTIL AFTER PROCEDURE. STATES WILL CALL WITH TIME OF SCOPE LATER TODAY OR TOMORROW. STATES HE WILL PUT BOWEL PREP ORDER IN FOR THURSDAY.
--- NOTE | 2020-02-23 14:44 | PHA.CONS_ITS ---
<Margaret Ramirez M - Last Filed: 02/23/20 14:44> Progress Note - Pharmacy Subjective: [facility] ADMISSION Objective: Allergies gabapentin Allergy (Verified 02/20/20 18:50) Unknown nortriptyline Allergy (Verified 02/20/20 18:50) Unknown rofecoxib [From Vioxx] Allergy (Verified 02/20/20 18:50) Unknown tacrolimus Allergy (Verified 02/20/20 18:50) Unknown morphine Adverse Reaction (Verified 02/20/20 18:50) Nausea Current Medications Generic Name Dose Route Start Last Admin Trade Name Freq PRN Reason Stop Dose Admin Acetaminophen 1,000 mg 02/21/20 21:35 02/21/20 23:09 Tylenol PO 1,000 mg Q6H PRN PRN Administration Pain Score 1-10/10 Albuterol Sulfate 1 - 2 puff 02/21/20 17:23 Ventolin Hfa (Sp) INHALATION Q6H PRN PRN SOB &/OR WHEEZING Amlodipine Besylate 2.5 mg 02/22/20 06:00 02/23/20 06:06 Norvasc PO 2.5 mg DAILY YEHUDA Administration Aspirin 81 mg 02/22/20 08:00 02/23/20 07:56 Aspirin, Baby PO 81 mg DAILY@0800 YEHUDA Administration Calamine/Phenol 1 applic 02/21/20 22:00 02/23/20 06:13 Calmoseptine Ointment TOPICAL 1 applicatio BID YEHUDA Administration Protocol Calcium Carbonate 1,000 mg 02/21/20 17:00 02/23/20 07:57 Tums PO 1,000 mg BIDCM YEHUDA Administration Carvedilol 25 mg 02/21/20 18:00 02/23/20 06:06 Coreg PO 25 mg BID YEHUDA Administration Chlorthalidone 12.5 mg 02/22/20 06:00 02/23/20 06:06 Hygroton PO 12.5 mg DAILY YEHUDA Administration Cholecalciferol 2,000 unit 02/22/20 08:00 02/23/20 07:57 Vitamin D (25mcg) PO 2,000 unit DAILYCM YEHUDA Administration Ciprofloxacin HCl 500 mg 02/21/20 18:00 02/23/20 06:06 Cipro PO 02/28/20 23:59 500 mg BID YEHUDA Administration Clopidogrel Bisulfate 75 mg 02/22/20 06:00 02/22/20 04:53 Plavix PO 75 mg DAILY YEHUDA Administration Emollient Ointment 1 applic 02/21/20 23:20 Eucerin Intensive Repair TOPICAL 4X/DAY PRN PRN Dry Skin Protocol Influenza Virus Vaccine Quadrival 0.5 ml 02/24/20 10:00 Flucelvax /Fluzone [id number] IM 02/24/20 10:01 .ONCE ONE Leflunomide 20 mg 02/22/20 06:00 02/23/20 06:06 Leflunomide PO 20 mg DAILY YEHUDA Administration Losartan Potassium 100 mg 02/22/20 06:00 02/23/20 06:06 Cozaar PO 100 mg DAILY YEHUDA Administration Melatonin 10 mg 02/22/20 08:02 Melatonin PO QHS PRN INSOMNIA Metronidazole 500 mg 02/21/20 22:00 02/23/20 12:53 Flagyl PO 02/28/20 23:59 500 mg TID YEHUDA Administration Nystatin 1 applic 02/21/20 22:00 02/23/20 06:13 Mycostatin Powder TOPICAL 1 applicatio BID YEHUDA Administration Protocol Ondansetron HCl 4 mg 02/21/20 16:58 Zofran Odt PO Q8H PRN PRN NAUSEA Pantoprazole Sodium 40 mg 02/22/20 06:00 02/23/20 06:06 Protonix PO 40 mg DAILY YEHUDA Administration Potassium Chloride 20 meq 02/22/20 08:00 02/23/20 07:57 K-Dur PO 20 meq BIDCM YEHUDA Administration Pravastatin Sodium 20 mg 02/21/20 22:00 02/22/20 20:42 Pravachol PO 20 mg QHS YEHUDA Administration Prednisone 5 mg 02/22/20 08:00 02/23/20 07:57 PO 5 mg DAILY@0800 YEHUDA Administration Sodium Chloride 10 - 40 ml 02/23/20 14:39 IV UD PRN SALINE FLUSH Tuberculin PPD 5 tu 02/29/20 10:00 Tubersol, Aplisol, Ppd ID 02/29/20 10:01 X1 ONE Problem List (Last Reviewed 02/20/20 @ 20:[address] Cesar Chandra MD) Pancolitis (Acute) Diarrhea (Acute) Ileus (Acute) Lymphedema (Chronic) Hypertension (Chronic) Chronic kidney disease, stage 2 (mild) (Chronic) GERD (gastroesophageal reflux disease) (Chronic) Coronary artery disease (Chronic) Vital Signs Temp Pulse Resp BP Pulse Ox 98.3 F 79 17 134/62 H 97 02/23/20 14:13 02/23/20 14:13 02/23/20 14:13 02/23/20 14:13 02/23/20 14:13 Oxygen Delivery Method Room Air Weight: 98.974 kg Body Mass Index (BMI) 41.2 Sodium 137 mmol/L (136-145) 02/22/20 05:22 Potassium 3.7 mmol/L (3.5-5.1) 02/22/20 05:22 Chloride 105 mmol/L (98-107) 02/22/20 05:22 Carbon Dioxide 27.0 mmol/L (21.0-32.0) 02/22/20 05:22 Anion Gap 5 (5-15) 02/22/20 05:22 BUN 3 mg/dL (7-18) L 02/22/20 05:22 Creatinine 0.98 mg/dL (0.55-1.02) 02/22/20 05:22 Est GFR (MDRD) Af Amer 71 mL/min (>60) 02/22/20 05:22 Est GFR (MDRD) Non-Af 58 mL/min (>60) L 02/22/20 05:22 BUN/Creatinine Ratio 3.1 RATIO (10-20) L 02/22/20 05:22 Glucose 96 mg/dL (74-106) 02/22/20 05:22 Assessment/Plan: 1. Pain: Tylenol 1000mg PO Q6h PRN pain 1-03/17. Please continue to monitor for S/S increased/decreased pain. 2. HTN/CAD: Norvasc 2.5mg PO Daily, Aspirin 81mg PO Daily, Coreg 25mg PO BID, Hygroton 12.5mg PO Daily, Plavix 75mg PO Daily (currently on hold, possible procedure?), Losartan 100mg PO daily. Please continue to monitor BP (last 134/62), Pulse (last 79), electrolytes, S/S bleeding/bruising. *3. HLD: Pravastatin 20mg PO QHS. Please consider obtaining a new lipid panel if clinically indicated, last known lipid panel per chart review was 10/2018, thank you. 4. COPD: Ventolin HFA 1-2 puff Q6h PRN SOB/Wheezing. Please continue to monitor for symptoms improvements, S/S COPD exacerbations. 5. Pancolitis: Cipro 500mg PO BID, Flagyl 500mg PO TID thru 02/28/20. Please continue to monitor renal function (last CrCl 35 mL/min), resolution of infection. 6. GERD: Protonix 40mg PO Daily, Tums 1000mg PO BIDCM. Please continue to monitor for S/S acid reflux. Can also encourage non-pharmacologic interventions to decrease the likelihood of heartburn issues. 7. PMR: Leflunomide 20mg PO Daily, Prednisone 5mg PO Daily. Please continue to monitor for symptom improvement, blood glucose with prednisone use, S/S e xtremity swelling. 8. Nausea: Zofran 4mg PO Q8h PRN. Please continue to monitor for medication effectiveness, PRN medication usage. 9. Hypokalemia: KCl 20mEq PO BID. Last K = 3.7 (WNL). Please continue to monitor potassium levels as clinically indicated. 10. Vitamin D Deficiency: Cholecalciferol 2000 unit PO Daily. Please continue to monitor Vitamin D levels at least annually or sooner if clinically indicated. 11. Insomnia: Melatonin 10mg PO QHS PRN. Please continue to monitor for medication effectiveness, PRN medication usage. Psychotropic Medications: None Unnecessary Medications: None Bowel Regimen: On hold d/t diarrhea Date of Note:: 02/23/20 - Provider Comments Provider responsibility: Provider responsible to enter orders to implement recommendations <Shen Vanessa Chi - Last Filed: 02/23/20 17:32> Progress Note - Pharmacy Subjective: [] Objective: Allergies gabapentin Allergy (Verified 02/20/20 18:50) Unknown nortriptyline Allergy (Verified 02/20/20 18:50) Unknown rofecoxib [From Vioxx] Allergy (Verified 02/20/20 18:50) Unknown tacrolimus Allergy (Verified 02/20/20 18:50) Unknown morphine Adverse Reaction (Verified 02/20/20 18:50) Nausea Current Medications Generic Name Dose Route Start Last Admin Trade Name Freq PRN Reason Stop Dose Admin Acetaminophen 1,000 mg 02/21/20 21:35 02/21/20 23:09 Tylenol PO 1,000 mg Q6H PRN PRN Administration Pain Score 1-10/10 Albuterol Sulfate 1 - 2 puff 02/21/20 17:23 Ventolin Hfa (Sp) INHALATION Q6H PRN PRN SOB &/OR WHEEZING Amlodipine Besylate 2.5 mg 02/22/20 06:00 02/23/20 06:06 Norvasc PO 2.5 mg DAILY YEHUDA Administration Aspirin 81 mg 02/22/20 08:00 02/23/20 07:56 Aspirin, Baby PO 81 mg DAILY@0800 YEHUDA Administration Calamine/Phenol 1 applic 02/21/20 22:00 02/23/20 17:21 Calmoseptine Ointment TOPICAL 1 applicatio BID YEHUDA Administration Protocol Calcium Carbonate 1,000 mg 02/21/20 17:00 02/23/20 17:19 Tums PO 1,000 mg BIDCM YEHUDA Administration Carvedilol 25 mg 02/21/20 18:00 02/23/20 17:19 Coreg PO 25 mg BID YEHUDA Administration Chlorthalidone 12.5 mg 02/22/20 06:00 02/23/20 06:06 Hygroton PO 12.5 mg DAILY YEHUDA Administration Cholecalciferol 2,000 unit 02/22/20 08:00 02/23/20 07:57 Vitamin D (25mcg) PO 2,000 unit DAILYCM YEHUDA Administration Ciprofloxacin HCl 500 mg 02/21/20 18:00 02/23/20 17:19 Cipro PO 02/28/20 23:59 500 mg BID YEHUDA Administration Clopidogrel Bisulfate 75 mg 02/22/20 06:00 02/22/20 04:53 Plavix PO 75 mg DAILY YEHUDA Administration Emollient Ointment 1 applic 02/21/20 23:20 Eucerin Intensive Repair TOPICAL 4X/DAY PRN PRN Dry Skin Protocol Influenza Virus Vaccine Quadrival 0.5 ml 02/24/20 10:00 Flucelvax /Fluzone [id number] IM 02/24/20 10:01 .ONCE ONE Leflunomide 20 mg 02/22/20 06:00 02/23/20 06:06 Leflunomide PO 20 mg DAILY YEHUDA Administration Losartan Potassium 100 mg 02/22/20 06:00 02/23/20 06:06 Cozaar PO 100 mg DAILY YEHUDA Administration Melatonin 10 mg 02/22/20 08:02 Melatonin PO QHS PRN INSOMNIA Metronidazole 500 mg 02/21/20 22:00 02/23/20 12:53 Flagyl PO 02/28/20 23:59 500 mg TID YEHUDA Administration Nystatin 1 applic 02/21/20 22:00 02/23/20 17:21 Mycostatin Powder TOPICAL 1 applicatio BID YEHUDA Administration Protocol Ondansetron HCl 4 mg 02/21/20 16:58 Zofran Odt PO Q8H PRN PRN NAUSEA Pantoprazole Sodium 40 mg 02/22/20 06:00 02/23/20 06:06 Protonix PO 40 mg DAILY YEHUDA Administration Potassium Chloride 20 meq 02/22/20 08:00 02/23/20 17:19 K-Dur PO 20 meq BIDCM YEHUDA Administration Pravastatin Sodium 20 mg 02/21/20 22:00 02/22/20 20:42 Pravachol PO 20 mg QHS YEHUDA Administration Prednisone 5 mg 02/22/20 08:00 02/23/20 07:57 PO 5 mg DAILY@0800 YEHUDA Administration Sodium Chloride 10 - 40 ml 02/23/20 14:39 02/23/20 17:18 IV 10 ml UD PRN Administration SALINE FLUSH Tuberculin PPD 5 tu 02/29/20 10:00 Tubersol, Aplisol, Ppd ID 02/29/20 10:01 X1 ONE Problem List (Last Reviewed 02/20/20 @ 20:[address] Cesar Chandra MD) Pancolitis (Acute) Diarrhea (Acute) Ileus (Acute) Lymphedema (Chronic) Hypertension (Chronic) Chronic kidney disease, stage 2 (mild) (Chronic) GERD (gastroesophageal reflux disease) (Chronic) Coronary artery disease (Chronic) Vital Signs Temp Pulse Resp BP Pulse Ox 98.3 F 79 17 134/62 H 97 02/23/20 14:13 02/23/20 14:13 02/23/20 14:13 02/23/20 14:13 02/23/20 14:13 Oxygen Delivery Method Room Air Weight: 98.974 kg Body Mass Index (BMI) 41.2 Sodium 137 mmol/L (136-145) 02/22/20 05:22 Potassium 3.7 mmol/L (3.5-5.1) 02/22/20 05:22 Chloride 105 mmol/L (98-107) 02/22/20 05:22 Carbon Dioxide 27.0 mmol/L (21.0-32.0) 02/22/20 05:22 Anion Gap 5 (5-15) 02/22/20 05:22 BUN 3 mg/dL (7-18) L 02/22/20 05:22 Creatinine 0.98 mg/dL (0.55-1.02) 02/22/20 05:22 Est GFR (MDRD) Af Amer 71 mL/min (>60) 02/22/20 05:22 Est GFR (MDRD) Non-Af 58 mL/min (>60) L 02/22/20 05:22 BUN/Creatinine Ratio 3.1 RATIO (10-20) L 02/22/20 05:22 Glucose 96 mg/dL (74-106) 02/22/20 05:22 Assessment/Plan: Psychotropic Medications: Unnecessary Medications: Bowel Regimen: - Provider Comments Provider responsibility: Provider responsible to enter orders to implement recommendations Provider Comments to Recommendations by Pharmacy: Agree
[2020-02-23] MEDS: 0.9% Saline Lock 10 ML Syringe IV (17:18)
[2020-02-23] MEDS: Pravastatin 20 MG Tablet PO (21:17)
[2020-02-24] MEDS: Menthol/Lanolin/Calamine/Znox 113 GM Tube 1 APPLIC TOPICAL ×2 (04:37→17:20)
[2020-02-24] MEDS: 0.9% Saline Lock 10 ML Syringe IV (04:39)
[2020-02-24] MEDS: amLODIPine 2.5 MG Tablet PO (04:42)
[2020-02-24] MEDS: Chlorthalidone 50 MG Tablet 12.5 MG PO (04:42)
[2020-02-24] MEDS: Leflunomide 10 MG TABLET 20 MG PO (04:43)
[2020-02-24] MEDS: metroNIDAZOLE 500 MG Tablet PO ×3 (04:43→20:27)
[2020-02-24] MEDS: Ciprofloxacin 500 MG Tablet PO ×2 (04:43→17:21)
[2020-02-24] MEDS: Pantoprazole Sodium 40 MG Tablet PO (04:43)
[2020-02-24] MEDS: Carvedilol 25 MG Tablet PO ×2 (04:43→17:21)
[2020-02-24] MEDS: Losartan Potassium 100 MG Tablet PO (04:43)
[2020-02-24 04:48] VITALS: BP 160/69; PULSE 89; RESP 16; TEMP 36.8; O2SAT 95
[2020-02-24 04:54] VITALS: O2SAT 95
[2020-02-24] MEDS: Aspirin 81 MG TAB.CHEW PO (10:53)
[2020-02-24] MEDS: predniSONE 5 MG Tablet PO (10:55)
[2020-02-24 14:38] VITALS: BP 136/75; PULSE 83; RESP 16; TEMP 36.8; O2SAT 97
[2020-02-24] MEDS: Calcium Carbonate 500 MG Tablet 1000 MG PO (17:20)
[2020-02-24] MEDS: Nystatin Powder 15gm Bottle 1 APPLIC TOPICAL (17:21)
[2020-02-24] MEDS: Pravastatin 20 MG Tablet PO (20:27)
[2020-02-25] MEDS: Menthol/Lanolin/Calamine/Znox 113 GM Tube 1 APPLIC TOPICAL ×2 (06:48→16:41)
[2020-02-25] MEDS: Chlorthalidone 50 MG Tablet 12.5 MG PO (06:48)
[2020-02-25] MEDS: Leflunomide 10 MG TABLET 20 MG PO (06:48)
[2020-02-25] MEDS: Pantoprazole Sodium 40 MG Tablet PO (06:48)
[2020-02-25] MEDS: Ciprofloxacin 500 MG Tablet PO ×2 (06:48→16:43)
[2020-02-25] MEDS: Losartan Potassium 100 MG Tablet PO (06:48)
[2020-02-25] MEDS: metroNIDAZOLE 500 MG Tablet PO ×3 (06:48→20:22)
[2020-02-25] MEDS: Carvedilol 25 MG Tablet PO ×2 (06:48→16:43)
[2020-02-25] MEDS: amLODIPine 2.5 MG Tablet PO (06:48)
[2020-02-25] MEDS: Nystatin Powder 15gm Bottle 1 APPLIC TOPICAL ×2 (06:49→16:41)
[2020-02-25 06:53] VITALS: BP 173/85; PULSE 83; RESP 17; TEMP 37; O2SAT 96
[2020-02-25] MEDS: 0.9% Saline Lock 10 ML Syringe IV (09:01)
[2020-02-25] MEDS: Calcium Carbonate 500 MG Tablet 1000 MG PO ×2 (09:01→16:43)
[2020-02-25] MEDS: Aspirin 81 MG TAB.CHEW PO (09:01)
[2020-02-25] MEDS: predniSONE 5 MG Tablet PO (09:01)
[2020-02-25 14:07] VITALS: PULSE 78; RESP 16; O2SAT 99
--- NOTE | 2020-02-25 15:06 | NURSING ---
pt with edema to BLEs, c/o painful. Dr Vanessa updated, new order for lasix PO x5 days
[2020-02-25 16:49] VITALS: BP 154/78; PULSE 78; RESP 16; TEMP 36.4; O2SAT 99
[2020-02-25] MEDS: Pravastatin 20 MG Tablet PO (20:22)
[2020-02-26 04:54] VITALS: PULSE 86; RESP 18; TEMP 36.9; O2SAT 93
[2020-02-26] MEDS: Furosemide 40 MG Tablet PO ×2 (04:57→15:32)
[2020-02-26] MEDS: amLODIPine 2.5 MG Tablet PO (04:57)
[2020-02-26] MEDS: Leflunomide 10 MG TABLET 20 MG PO (04:57)
[2020-02-26] MEDS: Carvedilol 25 MG Tablet PO ×2 (04:57→18:03)
[2020-02-26] MEDS: Ciprofloxacin 500 MG Tablet PO ×2 (04:57→18:02)
[2020-02-26] MEDS: Pantoprazole Sodium 40 MG Tablet PO (04:57)
[2020-02-26] MEDS: Losartan Potassium 100 MG Tablet PO (04:57)
[2020-02-26] MEDS: metroNIDAZOLE 500 MG Tablet PO ×3 (04:57→21:15)
[2020-02-26] MEDS: Chlorthalidone 50 MG Tablet 12.5 MG PO (04:58)
[2020-02-26 05:00] VITALS: BP 196/90
[2020-02-26] MEDS: Nystatin Powder 15gm Bottle 1 APPLIC TOPICAL ×2 (05:00→18:03)
[2020-02-26] MEDS: Menthol/Lanolin/Calamine/Znox 113 GM Tube 1 APPLIC TOPICAL ×2 (05:00→18:03)
[2020-02-26 06:03] LABS: Absolute Lymphocyte Count 0.71 X10^3/uL (0.83-4.51); Absolute Neutrophil Count 4.5 X10^3/uL (2.0-7.7); Basophil# 0.04 X10^3/uL; Basophil% 0.6 % (0-1); Eosinophil# 0.11 X10^3/uL; Eosinophils% 1.7 % (0-5); Hematocrit 29.3 % (37-47); Hemoglobin 9.2 g/dL (12.0-15.0); Lymphocyte # 0.71 X10^3/ul (4.0); Lymphocyte % 10.8 % (19-41); Mean Corp Hgb Conc 31.4 g/dL (32-36); Mean Corpuscular Hgb 29.5 pg (27.0-32.0); Mean Corpuscular Volume 93.9 fL (81-99); Mean Platelet Vol. 9.3 fl (6.2-12.0); Monocyte# 1.08 X10^3/uL; Monocyte% 16.5 % (0-10); NRBC Flagged by Analyzer 0 % (0-5); Neutrophil # 4.54 X10^3/uL (2.7-7.7); Neutrophil % 69.3 % (47-70); Platelet Count 230 K/mm3 (150-450); RBC Distribution Width CV 15.8 % (11.6-14.6); RBC Distribution Width SD 53.7 fl (35.1-43.9); Red Blood Count 3.12 M/mm3 (4.2-5.4); White Blood Count 6.6 K/mm3 (4.4-11.0)
[2020-02-26 06:26] LABS: Anion Gap 6 (5-15); BUN 4 mg/dL (7-18); BUN/Creat Ratio 4.8 RATIO (10-20); Chloride 102 mmol/L (98-107); Creatinine, Serum 0.83 mg/dL (0.55-1.02); EST Glomerular Filtration Rate 70 mL/min (>60); Est Glom Filt Rate - Afr Amer 85 mL/min (>60); Estimated Creatinine Clearance 41.47 ml/min; Glucose 103 mg/dL (74-106); Potassium 3.3 mmol/L (3.5-5.1); Sodium Level 138 mmol/L (136-145)
--- NOTE | 2020-02-26 06:39 | PN.SURG_ITS ---
Patient Problems: Active and Suspected Problems (Last Reviewed 02/20/20 @ 20:[address] Cesar Chandra MD) Pancolitis (Acute) Diarrhea (Acute) Ileus (Acute) Subjective: Patient reports her diarrhea has improved. She is not having any nausea vomiting or abdominal pain at this time. - Physical Exam Vitals/I&O's: Vital Signs Temp Pulse Resp BP Pulse Ox 98.5 F 86 18 196/90 H 93 02/26/20 04:54 02/26/20 04:54 02/26/20 04:54 02/26/20 05:00 02/26/20 04:54 Oxygen Delivery Method Room Air Weight: 218 lb 3.2 oz Body Mass Index (BMI) 41.2 Intake and Output for Last 24 Hours 02/24/20 02/25/20 02/26/20 23:59 23:59 23:59 Intake Total 480 / 480 1120 / 1120 Balance 480 / 480 1120 / 1120 General: Alert, Oriented x3 Lungs: Normal air movement Cardiovascular: Regular rate, Regular Rhythm Abdomen: Soft, Non Tender, Non-Distended Laboratory Results 02/26/20 05:55: WBC 6.6, RBC 3.12 L, Hgb 9.2 L, Hct 29.3 L, MCV 93.9, MCH 29.5, MCHC 31.4 L, RDW Std Deviation 53.7 H, RDW Coeff of [place]aine 15.8 H, Plt Count 230, MPV 9.3, Immature Gran % (Auto) 1.100 H, Neut % (Auto) 69.3, Lymph % (Auto) 10.8 L, [place] % (Auto) 16.5 H, Eos % (Auto) 1.7, Baso % (Auto) 0.6, Absolute Neuts (auto) 4.5, Absolute Lymphs (auto) 0.71 L, Nucleated RBC % 0 02/26/20 05:55: Sodium 138, Potassium 3.3 L, Chloride 102, Carbon Dioxide 30.0, Anion Gap 6, BUN 4 L, Creatinine 0.83, Estim Creat Clear Calc 41.47, Est GFR (MDRD) Af Amer 85, Est GFR (MDRD) Non-Af 70, BUN/Creatinine Ratio 4.8 L, Glucose 103, Calcium 8.0 L Current Medications Acetaminophen (Tylenol) 1,000 mg PO Q6H PRN PRN PRN Reason: Pain Score 1-10 Last Admin: 02/21/20 23:09 Dose: 1,000 mg Documented by: Albuterol Sulfate (Ventolin Hfa (Sp)) 1 - 2 puff INHALATION Q6H PRN PRN PRN Reason: SOB &/OR WHEEZING Amlodipine Besylate (Norvasc) 2.5 mg PO DAILY [facility] Last Admin: 02/26/20 04:57 Dose: 2.5 mg Documented by: Aspirin (Aspirin, Baby) 81 mg PO DAILY@0800 [facility] Last Admin: 02/25/20 09:01 Dose: 81 mg Documented by: Calamine/Phenol (Calmoseptine Ointment) 1 applic TOPICAL BID [facility]; Protocol Last Admin: 02/26/20 05:00 Dose: 1 applicatio Documented by: [facility] Last Admin: 02/25/20 16:43 Dose: 1,000 mg Documented by: Carvedilol (Coreg) 25 mg PO BID [facility] Last Admin: 02/26/20 04:57 Dose: 25 mg Documented by: Chlorthalidone (Hygroton) 12.5 mg PO DAILY [facility] Last Admin: 02/26/20 04:58 Dose: 12.5 mg Documented by: Cholecalciferol (Vitamin D (25mcg)) [facility] Last Admin: 02/25/20 09:01 Dose: 2,000 unit Documented by: Ciprofloxacin HCl (Cipro) 500 mg PO BID [facility] Stop: 02/28/20 23:59 Last Admin: 02/26/20 04:57 Dose: 500 mg Documented by: Clopidogrel Bisulfate (Plavix) 75 mg PO DAILY [facility] Last Admin: 02/22/20 04:53 Dose: 75 mg Documented by: Emollient Ointment (Eucerin Intensive Repair) 1 applic TOPICAL 4X/DAY PRN PRN; Protocol PRN Reason: Dry Skin Furosemide (Lasix) 40 mg PO X1 ONE Stop: 02/26/20 14:28 Furosemide (Lasix) 40 mg PO DAILY [facility] Stop: 03/01/20 06:01 Last Admin: 02/26/20 04:57 Dose: 40 mg Documented by: Leflunomide (Leflunomide) 20 mg PO DAILY [facility] Last Admin: 02/26/20 04:57 Dose: 20 mg Documented by: Losartan Potassium (Cozaar) 100 mg PO DAILY [facility] Last Admin: 02/26/20 04:57 Dose: 100 mg Documented by: Melatonin (Melatonin) 10 mg PO QHS PRN PRN Reason: INSOMNIA Metronidazole (Flagyl) 500 mg PO TID [facility] Stop: 02/28/20 23:59 Last Admin: 02/26/20 04:57 Dose: 500 mg Documented by: Nystatin (Mycostatin Powder) 1 applic TOPICAL BID [facility]; Protocol Last Admin: 02/26/20 05:00 Dose: 1 applicatio Documented by: Ondansetron HCl (Zofran Odt) 4 mg PO Q8H PRN PRN PRN Reason: NAUSEA Pantoprazole Sodium (Protonix) 40 mg PO DAILY [facility] Last Admin: 02/26/20 04:57 Dose: 40 mg Documented by: Potassium Chloride (K-Dur) 20 meq PO BIDCM [facility] Last Admin: 02/25/20 16:44 Dose: 20 meq Documented by: Pravastatin Sodium (Pravachol) 20 mg PO QHS [facility] Last Admin: 02/25/20 20:22 Dose: 20 mg Documented by: Prednisone () 5 mg PO DAILY@0800 [facility] Last Admin: 02/25/20 09:01 Dose: 5 mg Documented by: Sodium Chloride () 10 - 40 ml IV UD PRN PRN Reason: SALINE FLUSH Last Admin: 02/25/20 09:01 Dose: 10 ml Documented by: Sodium Chloride/Electrolytes (Nulytely) 4,000 ml PO X1 ONE Stop: 02/26/20 11:01 Tuberculin PPD (Tubersol, Aplisol, Ppd) 5 tu ID X1 ONE Stop: 02/29/20 10:01 Medical Necessity - Tobacco Use Smoking Status: Former smoker Tobacco Use: Non-smoker Assessment/Plan All Active Problems (Last Reviewed 02/20/20 @ 20:[address] Cesar Chandra MD) Generalized weakness (Acute) Debility (Acute) Fall (Acute) Pancolitis (Acute) Diarrhea (Acute) Ileus (Acute) Dehydration (Resolved) 79-year-old female with ileus as well as subsequent diarrhea 1. Patient had some sort of colitis followed by ileus and then diarrhea. The plan is for Dr. Conner to perform a colonoscopy tomorrow. Bowel prep has been ordered. David Cortez MD Pager: [facility] [address] [place] [address] [address] [place] [address] Office:
[2020-02-26] MEDS: predniSONE 5 MG Tablet PO (08:55)
[2020-02-26] MEDS: Aspirin 81 MG TAB.CHEW PO (08:55)
[2020-02-26] MEDS: Calcium Carbonate 500 MG Tablet 1000 MG PO ×2 (08:55→18:02)
[2020-02-26] MEDS: Electrolyte Solution/Peg's 4000 ML PO (11:10)
[2020-02-26 15:52] VITALS: PULSE 70; RESP 18; O2SAT 98
[2020-02-26 16:05] VITALS: BP 130/60; PULSE 70; RESP 18; TEMP 36.7; O2SAT 98
[2020-02-26] MEDS: Pravastatin 20 MG Tablet PO (21:15)
[2020-02-27 05:28] VITALS: BP 171/69; PULSE 76; RESP 17; TEMP 36.8; O2SAT 97
[2020-02-27 05:58] LABS: Anion Gap 8 (5-15); BUN 5 mg/dL (7-18); BUN/Creat Ratio 5.8 RATIO (10-20); Calcium,Total 7.8 mg/dL (8.5-10.1); Chloride 95 mmol/L (98-107); Creatinine, Serum 0.87 mg/dL (0.55-1.02); EST Glomerular Filtration Rate 67 mL/min (>60); Est Glom Filt Rate - Afr Amer 81 mL/min (>60); Estimated Creatinine Clearance 39.57 ml/min; Glucose 94 mg/dL (74-106); Potassium 2.8 mmol/L (3.5-5.1); Sodium Level 133 mmol/L (136-145)
[2020-02-27 10:41] VITALS: BP 137/66; PULSE 95; RESP 16; TEMP 36.9; O2SAT 93
--- NOTE | 2020-02-27 10:50 | NURSING ---
Take down to AC for colonoscopy.
--- NOTE | 2020-02-27 10:57 | NURSING ---
pt off unit for colonoscopy
--- NOTE | 2020-02-27 12:08 | PCM.PN.SRG ---
Patient Problems: Active and Suspected Problems (Last Reviewed 02/20/20 @ 20:[address] Cesar Chandra MD) Pancolitis (Acute) Diarrhea (Acute) Ileus (Acute) Subjective: Attempted a colonoscopy on the patient today. Was only able to advance it to the proximal sigmoid colon tried various maneuvers was unsuccessful in advancing it any further. I aborted the procedure and will proceed with a barium enema. Objective: The rectum and distal sigmoid looked normal she did have a few diverticuli but there was no signs of any colitis whatsoever. - Physical Exam Vitals/I&O's: Vital Signs Temp Pulse Resp BP Pulse Ox 98.4 F 95 16 137/66 H 93 02/27/20 10:41 02/27/20 10:41 02/27/20 10:41 02/27/20 10:41 02/27/20 10:41 Oxygen Delivery Method Room Air Weight: 218 lb 3.2 oz Body Mass Index (BMI) 41.2 Intake and Output for Last 24 Hours 02/25/20 02/26/20 02/27/20 23:59 23:59 23:59 Intake Total 1120 / 1120 1100 / 1100 Balance 1120 / 1120 1100 / 1100 Laboratory Results 02/27/20 05:15: Sodium 133 L, Potassium 2.8 L, Chloride 95 L, Carbon Dioxide 30.0, Anion Gap 8, BUN 5 L, Creatinine 0.87, Estim Creat Clear Calc 39.57, Est GFR (MDRD) Af Amer 81, Est GFR (MDRD) Non-Af 67, BUN/Creatinine Ratio 5.8 L, Glucose 94, Calcium 7.8 L Current Medications Acetaminophen (Tylenol) 1,000 mg PO Q6H PRN PRN PRN Reason: Pain Score 1-10/10 Last Admin: 02/21/20 23:09 Dose: 1,000 mg Documented by: Albuterol Sulfate (Ventolin Hfa (Sp)) 1 - 2 puff INHALATION Q6H PRN PRN PRN Reason: SOB &/OR WHEEZING Amlodipine Besylate (Norvasc) 2.5 mg PO DAILY [facility] Last Admin: 02/26/20 04:57 Dose: 2.5 mg Documented by: Aspirin (Aspirin, Baby) 81 mg PO DAILY@0800 [facility] Last Admin: 02/26/20 08:55 Dose: 81 mg Documented by: Calamine/Phenol (Calmoseptine Ointment) 1 applic TOPICAL BID [facility]; Protocol Last Admin: 02/26/20 18:03 Dose: 1 applicatio Documented by: [facility] Last Admin: 02/26/20 18:02 Dose: 1,000 mg Documented by: Carvedilol (Coreg) 25 mg PO BID [facility] Last Admin: 02/26/20 18:03 Dose: 25 mg Documented by: Chlorthalidone (Hygroton) 12.5 mg PO DAILY [facility] Last Admin: 02/26/20 04:58 Dose: 12.5 mg Documented by: Cholecalciferol (Vitamin D (25mcg)) [facility] Last Admin: 02/26/20 08:56 Dose: 2,000 unit Documented by: Ciprofloxacin HCl (Cipro) 500 mg PO BID [facility] Stop: 02/28/20 23:59 Last Admin: 02/26/20 18:02 Dose: 500 mg Documented by: Clopidogrel Bisulfate (Plavix) 75 mg PO DAILY [facility] Last Admin: 02/22/20 04:53 Dose: 75 mg Documented by: Emollient Ointment (Eucerin Intensive Repair) 1 applic TOPICAL 4X/DAY PRN PRN; Protocol PRN Reason: Dry Skin Furosemide (Lasix) 40 mg PO DAILY [facility] Stop: 03/01/20 06:01 Last Admin: 02/26/20 04:57 Dose: 40 mg Documented by: Leflunomide (Leflunomide) 20 mg PO DAILY [facility] Last Admin: 02/26/20 04:57 Dose: 20 mg Documented by: Losartan Potassium (Cozaar) 100 mg PO DAILY [facility] Last Admin: 02/26/20 04:57 Dose: 100 mg Documented by: Melatonin (Melatonin) 10 mg PO QHS PRN PRN Reason: INSOMNIA Metronidazole (Flagyl) 500 mg PO TID [facility] Stop: 02/28/20 23:59 Last Admin: 02/26/20 21:15 Dose: 500 mg Documented by: Nystatin (Mycostatin Powder) 1 applic TOPICAL BID [facility]; Protocol Last Admin: 02/26/20 18:03 Dose: 1 applicatio Documented by: Ondansetron HCl (Zofran Odt) 4 mg PO Q8H PRN PRN PRN Reason: NAUSEA Pantoprazole Sodium (Protonix) 40 mg PO DAILY [facility] Last Admin: 02/26/20 04:57 Dose: 40 mg Documented by: Potassium Chloride (K-Dur) 20 meq PO TIDCM [facility] Last Admin: 02/26/20 18:02 Dose: 20 meq Documented by: Potassium Chloride (K-Dur) 60 meq PO X1 ONE Stop: 02/27/20 13:01 Pravastatin Sodium (Pravachol) 20 mg PO QHS [facility] Last Admin: 02/26/20 21:15 Dose: 20 mg Documented by: Prednisone () 5 mg PO DAILY@0800 [facility] Last Admin: 02/26/20 08:55 Dose: 5 mg Documented by: Sodium Chloride () 10 - 40 ml IV UD PRN PRN Reason: SALINE FLUSH Last Admin: 02/25/20 09:01 Dose: 10 ml Documented by: Sodium Chloride () 10 - 40 ml IV UD PRN PRN Reason: SALINE FLUSH Tuberculin PPD (Tubersol, Aplisol, Ppd) 5 tu ID X1 ONE Stop: 02/29/20 10:01 Medical Necessity - Tobacco Use Smoking Status: Former smoker Tobacco Use: Non-smoker Assessment/Plan All Active Problems (Last Reviewed 02/20/20 @ 20:[address] Cesar Chandra MD) Generalized weakness (Acute) Debility (Acute) Fall (Acute) Pancolitis (Acute) Diarrhea (Acute) Ileus (Acute) Dehydration (Resolved) Aborted colonoscopy We will plan for barium enema today.
--- NOTE | 2020-02-27 12:57 | NURSING ---
Addendum entered by Talita Rice 02/27/20 14:40: Clarification made by FELICE Patel with call made to Dr Conner's office. Resident to remain on full liquid diet as she was before. Original Note: FELICE Carrillo from calls and reports that Dr Conner was unable to perform the colonscopy at this time. Resident to go to have a air contrast enema done at 1:30. PACU will take her to radiology for this procedure. Lorena states resident may resume regular diet and care when she returns.
--- NOTE | 2020-02-27 13:35 | RAD_ITS ---
STUDY: BARIUM ENEMA. REASON FOR EXAM: Female, 79 years old. Failed colonoscopy, diarrhea FLUOROSCOPY TIME (if supplied): ( 40 seconds ) minutes/seconds. 4 images were obtained. TECHNIQUE: A cut out worker film was obtained. Following this, a barium enema was attempted with the retrograde introduction of barium. The patient was unable to tolerate the barium. COMPARISON: None. FINDINGS: Limited examination. There is evidence of a sigmoid diverticulosis and a mucosal abnormality in the sigmoid colon. Patient was unable to retain the barium for further evaluation. There is evidence of a gaseous distention of the proximal colon. RAD/Barium Enema No Air Cont IMPRESSION: Limited examination demonstrating the sigmoid diverticulosis and possible diverticulitis. Electronically Signed: Pradip Davison, at 8:22 EDT , Service support ,
--- NOTE | 2020-02-27 14:39 | NURSING ---
Back in room from AC and radiology. Will give medications that were held this AM.
[2020-02-27 14:48] VITALS: BP 163/74; PULSE 96
[2020-02-27] MEDS: Ciprofloxacin 500 MG Tablet PO ×2 (14:52→18:33)
[2020-02-27] MEDS: Losartan Potassium 100 MG Tablet PO (14:52)
[2020-02-27] MEDS: amLODIPine 2.5 MG Tablet PO (14:53)
[2020-02-27] MEDS: predniSONE 5 MG Tablet PO (14:54)
[2020-02-27] MEDS: Aspirin 81 MG TAB.CHEW PO (14:54)
[2020-02-27] MEDS: Pantoprazole Sodium 40 MG Tablet PO (14:54)
[2020-02-27] MEDS: metroNIDAZOLE 500 MG Tablet PO ×2 (14:56→22:13)
[2020-02-27] MEDS: Chlorthalidone 50 MG Tablet 12.5 MG PO (14:56)
[2020-02-27] MEDS: Furosemide 40 MG Tablet PO (15:00)
[2020-02-27] MEDS: Leflunomide 10 MG TABLET 20 MG PO (15:29)
[2020-02-27] MEDS: Calcium Carbonate 500 MG Tablet 1000 MG PO (18:32)
[2020-02-27] MEDS: Carvedilol 25 MG Tablet PO (18:33)
[2020-02-27] MEDS: Menthol/Lanolin/Calamine/Znox 113 GM Tube 1 APPLIC TOPICAL (18:36)
[2020-02-27] MEDS: Nystatin Powder 15gm Bottle 1 APPLIC TOPICAL (18:38)
[2020-02-27] MEDS: Pravastatin 20 MG Tablet PO (22:14)
[2020-02-28 04:50] VITALS: BP 130/70; PULSE 94; RESP 18; TEMP 36.7; O2SAT 96
[2020-02-28] MEDS: Menthol/Lanolin/Calamine/Znox 113 GM Tube 1 APPLIC TOPICAL ×2 (04:51→14:51)
[2020-02-28] MEDS: Losartan Potassium 100 MG Tablet PO (04:52)
[2020-02-28] MEDS: Carvedilol 25 MG Tablet PO ×2 (04:52→16:55)
[2020-02-28] MEDS: Chlorthalidone 50 MG Tablet 12.5 MG PO (04:52)
[2020-02-28] MEDS: metroNIDAZOLE 500 MG Tablet PO ×3 (04:52→19:45)
[2020-02-28] MEDS: Ciprofloxacin 500 MG Tablet PO ×2 (04:52→16:56)
[2020-02-28] MEDS: Pantoprazole Sodium 40 MG Tablet PO (04:52)
[2020-02-28] MEDS: Furosemide 40 MG Tablet PO (04:52)
[2020-02-28] MEDS: amLODIPine 2.5 MG Tablet PO (04:52)
[2020-02-28] MEDS: Leflunomide 10 MG TABLET 20 MG PO (04:53)
[2020-02-28 05:59] LABS: Anion Gap 8 (5-15); BUN 8 mg/dL (7-18); BUN/Creat Ratio 7.1 RATIO (10-20); Calcium,Total 7.4 mg/dL (8.5-10.1); Chloride 97 mmol/L (98-107); Creatinine, Serum 1.12 mg/dL (0.55-1.02); EST Glomerular Filtration Rate 50 mL/min (>60); Est Glom Filt Rate - Afr Amer 60 mL/min (>60); Estimated Creatinine Clearance 30.73 ml/min; Glucose 93 mg/dL (74-106); Potassium 3.1 mmol/L (3.5-5.1); Sodium Level 134 mmol/L (136-145)
--- NOTE | 2020-02-28 09:00 | NURSING ---
Addendum entered by Lucero Cervantes 02/28/20 19:11: Original Note: pt off floor, will give morning meds when back in room
--- NOTE | 2020-02-28 09:20 | RAD_ITS ---
STUDY: BARIUM ENEMA. REASON FOR EXAM: Female, 79 years old. Sigmoid stricture FLUOROSCOPY TIME (if supplied): ( 91 seconds ) minutes/seconds. 14 images were obtained. TECHNIQUE: A polls or surveys interviewer film was obtained. Following this, barium was introduced retrograde through the rectum. The entire colon was opacified. COMPARISON: None. FINDINGS: There is evidence of diffuse diverticulosis of the sigmoid colon. There is evidence of mucosal thickening suggestive of a diverticulitis although there is no evidence of obstruction to antegrade or retrograde flow of contrast. The sigmoid colon is redundant. Diverticula are also seen in the left hemicolon RAD/Barium Enema No Air Cont IMPRESSION: Extensive sigmoid diverticulosis with mucosal edema suggestive of diverticulitis. No evidence of obstruction to the antegrade or retrograde flow of barium. Electronically Signed: Pradip Davison, at 10:36 EDT , Service support ,
[2020-02-28] MEDS: Aspirin 81 MG TAB.CHEW PO (10:30)
[2020-02-28] MEDS: Calcium Carbonate 500 MG Tablet 1000 MG PO (10:31)
[2020-02-28] MEDS: predniSONE 5 MG Tablet PO (10:31)
--- NOTE | 2020-02-28 13:13 | NURSING ---
Addendum entered by Talita Rice 02/28/20 13:15: Dr Conner tells this nurse to continue Flagyl and Cipro one more week. He said he will notify Dr elizabeth of new orders. Original Note: Dr Conner in room to speak with resident about Barium swallow results.
[2020-02-28] MEDS: Nystatin Powder 15gm Bottle 1 APPLIC TOPICAL (14:50)
[2020-02-28 15:15] VITALS: BP 158/60; PULSE 84; RESP 17; TEMP 36.9; O2SAT 97
[2020-02-28] MEDS: Pravastatin 20 MG Tablet PO (19:45)
[2020-02-29 03:12] VITALS: BP 181/77; PULSE 85; RESP 18; TEMP 36.8; O2SAT 96
[2020-02-29] MEDS: Carvedilol 25 MG Tablet PO ×2 (05:04→17:16)
[2020-02-29] MEDS: Leflunomide 10 MG TABLET 20 MG PO (05:04)
[2020-02-29] MEDS: Chlorthalidone 50 MG Tablet 12.5 MG PO (05:04)
[2020-02-29] MEDS: Ciprofloxacin 500 MG Tablet PO ×2 (05:04→17:16)
[2020-02-29] MEDS: amLODIPine 2.5 MG Tablet PO (05:04)
[2020-02-29] MEDS: metroNIDAZOLE 500 MG Tablet PO ×3 (05:04→19:26)
[2020-02-29] MEDS: Furosemide 40 MG Tablet PO (05:04)
[2020-02-29] MEDS: Clopidogrel Bisulfate 75 MG Tablet PO (05:04)
[2020-02-29] MEDS: Pantoprazole Sodium 40 MG Tablet PO (05:04)
[2020-02-29] MEDS: Losartan Potassium 100 MG Tablet PO (05:04)
[2020-02-29] MEDS: Menthol/Lanolin/Calamine/Znox 113 GM Tube 1 APPLIC TOPICAL ×2 (05:06→17:18)
[2020-02-29] MEDS: Nystatin Powder 15gm Bottle 1 APPLIC TOPICAL ×2 (05:06→17:18)
[2020-02-29 05:44] LABS: Absolute Lymphocyte Count 0.79 X10^3/uL (0.83-4.51); Absolute Neutrophil Count 5.9 X10^3/uL (2.0-7.7); Basophil# 0.06 X10^3/uL; Basophil% 0.7 % (0-1); Eosinophil# 0.13 X10^3/uL; Eosinophils% 1.6 % (0-5); Hematocrit 28.6 % (37-47); Hemoglobin 9.2 g/dL (12.0-15.0); Lymphocyte # 0.79 X10^3/ul (4.0); Lymphocyte % 9.6 % (19-41); Mean Corp Hgb Conc 32.2 g/dL (32-36); Mean Corpuscular Hgb 29.7 pg (27.0-32.0); Mean Corpuscular Volume 92.3 fL (81-99); Mean Platelet Vol. 9.8 fl (6.2-12.0); Monocyte# 1.26 X10^3/uL; Monocyte% 15.3 % (0-10); NRBC Flagged by Analyzer 0 % (0-5); Neutrophil # 5.91 X10^3/uL (2.7-7.7); Neutrophil % 71.9 % (47-70); Platelet Count 242 K/mm3 (150-450); RBC Distribution Width CV 15.4 % (11.6-14.6); RBC Distribution Width SD 52.3 fl (35.1-43.9); White Blood Count 8.2 K/mm3 (4.4-11.0)
[2020-02-29 06:06] LABS: Anion Gap 5 (5-15); BUN 8 mg/dL (7-18); BUN/Creat Ratio 7.6 RATIO (10-20); Calcium,Total 7.5 mg/dL (8.5-10.1); Chloride 99 mmol/L (98-107); Creatinine, Serum 1.05 mg/dL (0.55-1.02); EST Glomerular Filtration Rate 54 mL/min (>60); Est Glom Filt Rate - Afr Amer 65 mL/min (>60); Estimated Creatinine Clearance 32.78 ml/min; Glucose 87 mg/dL (74-106); Potassium 3.4 mmol/L (3.5-5.1); Sodium Level 134 mmol/L (136-145)
[2020-02-29] MEDS: predniSONE 5 MG Tablet PO (08:32)
[2020-02-29] MEDS: Aspirin 81 MG TAB.CHEW PO (08:32)
[2020-02-29] MEDS: Calcium Carbonate 500 MG Tablet 1000 MG PO ×2 (08:32→17:16)
[2020-02-29] MEDS: Tuberculin,Purif.prot.deriv. 50 TU/ML Vial 5 ML ID (11:46)
--- NOTE | 2020-02-29 12:41 | CASEMGMT ---
Social Work Social Work assisted pt in completing health care POA and Living Will. Pt naming her dgt Milli Will as bank representative. Original given to pt and copy placed on pt chart. SARAH Johnson
[2020-02-29 15:55] VITALS: BP 103/64; PULSE 78; RESP 17; TEMP 37
--- NOTE | 2020-02-29 16:18 | CASEMGMT ---
Social Work IDT met with patient and dtr via conference call for care plan meeting. Discussed patient's progress in therapy. Pt is modA for bed mobility, Jos for tx with FWW, ambulating 40-80 ft with FWW at CGA. Pt is sup. for grooming, modA for bathing, SBA for UE dressing, total A for LE dressing, sup for toileting, CGA for shower tx. Pt is on a full liquid diet due to colonoscopy. Pt has had decreased appetite, and on 1500 cc fluid restriction. Pt is out of isolation 03/06 and on ATB until 03/06. Explained Medicare benefit. Submitted TIKI appt 02/27 with the goal to DC to [facility]. Pt requesting referrals to [facility], [facility], [facility] and [facility]. Will make referrals closer to DC. Will continue to follow. EL Dee
[2020-02-29] MEDS: Pravastatin 20 MG Tablet PO (19:26)
[2020-03-01 02:59] VITALS: BP 147/97; PULSE 87; RESP 16; TEMP 36.6; O2SAT 93
[2020-03-01] MEDS: Pantoprazole Sodium 40 MG Tablet PO (04:47)
[2020-03-01] MEDS: amLODIPine 5 MG Tablet PO (04:47)
[2020-03-01] MEDS: Leflunomide 10 MG TABLET 20 MG PO (04:47)
[2020-03-01] MEDS: Chlorthalidone 50 MG Tablet 12.5 MG PO (04:47)
[2020-03-01] MEDS: Furosemide 40 MG Tablet PO (04:47)
[2020-03-01] MEDS: Clopidogrel Bisulfate 75 MG Tablet PO (04:47)
[2020-03-01] MEDS: Losartan Potassium 100 MG Tablet PO (04:48)
[2020-03-01] MEDS: Menthol/Lanolin/Calamine/Znox 113 GM Tube 1 APPLIC TOPICAL ×2 (04:48→16:19)
[2020-03-01] MEDS: Ciprofloxacin 500 MG Tablet PO ×2 (04:48→17:40)
[2020-03-01] MEDS: Carvedilol 25 MG Tablet PO ×2 (04:48→17:40)
[2020-03-01] MEDS: metroNIDAZOLE 500 MG Tablet PO ×3 (04:48→21:08)
[2020-03-01] MEDS: Nystatin Powder 15gm Bottle 1 APPLIC TOPICAL ×2 (04:52→16:19)
[2020-03-01 06:05] LABS: Anion Gap 7 (5-15); BUN 7 mg/dL (7-18); Calcium,Total 7.5 mg/dL (8.5-10.1); Chloride 97 mmol/L (98-107); EST Glomerular Filtration Rate 57 mL/min (>60); Est Glom Filt Rate - Afr Amer 69 mL/min (>60); Estimated Creatinine Clearance 34.42 ml/min; Glucose 88 mg/dL (74-106); Potassium 3.1 mmol/L (3.5-5.1); Sodium Level 134 mmol/L (136-145)
[2020-03-01] MEDS: Aspirin 81 MG TAB.CHEW PO (08:24)
[2020-03-01] MEDS: Calcium Carbonate 500 MG Tablet 1000 MG PO ×2 (08:24→16:18)
[2020-03-01] MEDS: predniSONE 5 MG Tablet PO (08:24)
[2020-03-01 15:02] VITALS: BP 112/64; PULSE 81; RESP 16; TEMP 36.6; O2SAT 95
[2020-03-01] MEDS: Pravastatin 20 MG Tablet PO (21:09)
[2020-03-02 04:00] VITALS: BP 145/93; PULSE 96; RESP 17; TEMP 37; O2SAT 97
[2020-03-02] MEDS: Pantoprazole Sodium 40 MG Tablet PO (04:53)
[2020-03-02] MEDS: Losartan Potassium 100 MG Tablet PO (04:53)
[2020-03-02] MEDS: metroNIDAZOLE 500 MG Tablet PO ×3 (04:53→19:49)
[2020-03-02] MEDS: Clopidogrel Bisulfate 75 MG Tablet PO (04:53)
[2020-03-02] MEDS: amLODIPine 5 MG Tablet PO (04:53)
[2020-03-02] MEDS: Carvedilol 25 MG Tablet PO ×2 (04:54→17:04)
[2020-03-02] MEDS: Chlorthalidone 50 MG Tablet 12.5 MG PO (04:54)
[2020-03-02] MEDS: Ciprofloxacin 500 MG Tablet PO ×2 (04:54→17:05)
[2020-03-02] MEDS: Leflunomide 10 MG TABLET 20 MG PO (04:54)
[2020-03-02] MEDS: Menthol/Lanolin/Calamine/Znox 113 GM Tube 1 APPLIC TOPICAL ×2 (04:55→17:05)
[2020-03-02] MEDS: Nystatin Powder 15gm Bottle 1 APPLIC TOPICAL ×2 (04:59→17:05)
[2020-03-02] MEDS: predniSONE 5 MG Tablet PO (09:34)
[2020-03-02] MEDS: Aspirin 81 MG TAB.CHEW PO (09:34)
[2020-03-02] MEDS: Calcium Carbonate 500 MG Tablet 1000 MG PO ×2 (09:34→17:04)
[2020-03-02] MEDS: Acetaminophen 500 MG Tablet 1000 MG PO (14:14)
[2020-03-02 16:10] VITALS: BP 136/72; PULSE 72; RESP 18; TEMP 36.6; O2SAT 93
[2020-03-02] MEDS: Pravastatin 20 MG Tablet PO (19:48)
--- NOTE | 2020-03-02 20:17 | PCA ---
Patient did not want to get washed tonight. Patient is scheduled for shower in the morning and agreed to shower tomorrow AM.
[2020-03-03] MEDS: Leflunomide 10 MG TABLET 20 MG PO (04:35)
[2020-03-03] MEDS: Chlorthalidone 50 MG Tablet 12.5 MG PO (04:36)
[2020-03-03] MEDS: Pantoprazole Sodium 40 MG Tablet PO (04:36)
[2020-03-03] MEDS: amLODIPine 5 MG Tablet PO (04:36)
[2020-03-03] MEDS: Losartan Potassium 100 MG Tablet PO ×2 (04:36)
[2020-03-03] MEDS: Clopidogrel Bisulfate 75 MG Tablet PO (04:36)
[2020-03-03] MEDS: Carvedilol 25 MG Tablet PO ×2 (04:36→16:51)
[2020-03-03] MEDS: Ciprofloxacin 500 MG Tablet PO ×2 (04:36→16:51)
[2020-03-03] MEDS: metroNIDAZOLE 500 MG Tablet PO ×3 (04:39→20:59)
[2020-03-03] MEDS: Nystatin Powder 15gm Bottle 1 APPLIC TOPICAL ×2 (04:41→16:53)
[2020-03-03] MEDS: Menthol/Lanolin/Calamine/Znox 113 GM Tube 1 APPLIC TOPICAL ×2 (04:42→16:53)
[2020-03-03 04:45] VITALS: BP 197/88; PULSE 80; RESP 16; TEMP 36.8; O2SAT 93
[2020-03-03 07:03] LABS: Anion Gap 5 (5-15); BUN 6 mg/dL (7-18); BUN/Creat Ratio 6.7 RATIO (10-20); Calcium,Total 7.6 mg/dL (8.5-10.1); Chloride 100 mmol/L (98-107); EST Glomerular Filtration Rate 64 mL/min (>60); Est Glom Filt Rate - Afr Amer 78 mL/min (>60); Estimated Creatinine Clearance 38.25 ml/min; Glucose 91 mg/dL (74-106); Potassium 3.3 mmol/L (3.5-5.1); Sodium Level 135 mmol/L (136-145)
[2020-03-03] MEDS: predniSONE 5 MG Tablet PO (07:59)
[2020-03-03] MEDS: Calcium Carbonate 500 MG Tablet 1000 MG PO ×2 (08:01→16:50)
[2020-03-03] MEDS: Aspirin 81 MG TAB.CHEW PO (08:02)
[2020-03-03 13:43] VITALS: BP 149/71; PULSE 73; RESP 16; TEMP 36.7; O2SAT 97
[2020-03-03] MEDS: Pravastatin 20 MG Tablet PO (20:59)
[2020-03-04 04:00] VITALS: BP 154/82; PULSE 83; RESP 14; TEMP 36.8; O2SAT 96
[2020-03-04] MEDS: Chlorthalidone 50 MG Tablet 12.5 MG PO (05:09)
[2020-03-04] MEDS: amLODIPine 5 MG Tablet PO (05:09)
[2020-03-04] MEDS: Ciprofloxacin 500 MG Tablet PO (05:09)
[2020-03-04] MEDS: Carvedilol 25 MG Tablet PO (05:10)
[2020-03-04] MEDS: metroNIDAZOLE 500 MG Tablet PO ×2 (05:10→13:22)
[2020-03-04] MEDS: Pantoprazole Sodium 40 MG Tablet PO (05:10)
[2020-03-04] MEDS: Leflunomide 10 MG TABLET 20 MG PO (05:10)
[2020-03-04] MEDS: Clopidogrel Bisulfate 75 MG Tablet PO (05:10)
[2020-03-04] MEDS: Menthol/Lanolin/Calamine/Znox 113 GM Tube 1 APPLIC TOPICAL (05:20)
[2020-03-04] MEDS: Nystatin Powder 15gm Bottle 1 APPLIC TOPICAL (05:20)
[2020-03-04] MEDS: Ondansetron ODT 4 MG Tablet PO (07:44)
[2020-03-04] MEDS: Calcium Carbonate 500 MG Tablet 1000 MG PO (07:47)
[2020-03-04] MEDS: Aspirin 81 MG TAB.CHEW PO (07:48)
[2020-03-04] MEDS: predniSONE 5 MG Tablet PO (07:50)
[2020-03-04 13:26] VITALS: RESP 14; O2SAT 99
[2020-03-04 13:36] LABS: Bedside Glucose 135 mg/dL (70-110)
--- NOTE | 2020-03-04 13:54 | NURSING ---
This nurse walked into pt's room, she was convulsing in her recliner, drooling and had bit her tongue. Minimal response to sternal rub, weak pulse palpated, eyes barely open. DISTRICT RESOURCE OFFICER called and pt assisted to bed. Vitals obtained, nursing dredge operator supervisor, RT and Dr. Harrell in room to assist. N.O. CT of head w/o contrast to r/o stroke. CT called, daughter Milli called. Pt taken to CT at 13:50.
--- NOTE | 2020-03-04 13:58 | CT_ITS ---
We are attempting to reach an attending provider to discuss findings. An addendum with communication details will be sent when the communication is complete. STUDY: CT BRAIN WITHOUT CONTRAST REASON FOR EXAM: Female, 79 years old. CVA, unresponsive earlier and confused, now resolving. RADIATION DOSAGE (If Supplied By Facility): CTDIvol = ( 44.99 ) mGy, DLP = ( 762.36 ) mGycm TECHNIQUE: Transaxial CT imaging of the brain was performed without administration of intravenous contrast material. Individualized dose optimization techniques were used for this CT. COMPARISON: No relevant priors. FINDINGS: Normal soft tissue structures. Normal calvarium. There is mild cerebral atrophy with widening of the extra-axial spaces and ventricular dilatation. There are areas of decreased attenuation within the white matter tracts of the supratentorial brain, consistent with microvascular disease changes. Normal basal ganglia and thalami. Normal brainstem. Normal cerebellum. There is no intracranial hemorrhage. There are no findings of an acute ischemic infarction. Normal visualized paranasal sinuses.
--- NOTE | 2020-03-04 14:10 | RRT_ITS ---
Rapid Response Note Rapid response was called about 1320 on 03/04/2020. As per the nurse taking care of the patient, she asked for drinking water and when she went out, she was found to be jerking mainly upper body, eyes closed, not responding, head dropping on one side on the chair. Patient was laid on the bed. Vitals: Blood pressure 165/93, heart rate 98/min, pulse ox 95% on room air. Second blood pressure was 176/99. Glucose was 135. Twelve-lead EKG was done shows sinus tachycardia at 109 bpm. QTC 436 ms. [facility] and was discharged after 1 week of hospital stay on Cipro and Flagyl. She was readmitted on 02/19 on same day of discharge with fall and then further admitted to TCU for rehab. Patient was seen by surgeon Dr. Conner and Dr. garnica and was unable to do colonoscopy beyond sigmoid region therefore had barium enema. Barium enema reported extensive sigmoid diverticulosis with mucosal edema suggestive of diverticulitis. No evidence of obstruction. Started for antibiotic Cipro and Flagyl on 03/06/2020 On exam Neuro: Initially she was not responding to simple commands. Jaw muscles were tight and teeth clenched. Confused and disoriented. Bilateral lower legs weakness, left more than right, I think chronic. NIH stroke scale done by nurse was 9 which I think more related to confusion and disorientation. And in ER, her speech for normal with no dysarthria. Patient is being further evaluated by ER physician. Assessment CBC, PT/INR, BMP and procalcitonin ordered. Patient is transferred to ER for further evaluation. Seizure or seizure-like movement most probably secondary to Cipro and Flagyl I think a stroke is less likely. Patient Problems: Active and Suspected Problems (Last Reviewed 02/20/20 @ 20:[address] Cesar Chandra MD) Pancolitis (Acute) Diarrhea (Acute) Ileus (Acute) - Physical Exam Vitals/I&O's: Vital Signs Temp Pulse Resp BP Pulse Ox 98.2 F 83 14 154/82 H 96 03/04/20 04:00 03/04/20 04:00 03/04/20 04:00 03/04/20 04:00 03/04/20 04:00 Oxygen Delivery Method Room Air Weight: 186 lb Body Mass Index (BMI) 41.2 Intake and Output for Last 24 Hours 03/02/20 03/03/20 03/04/20 23:59 23:59 23:59 Intake Total 840 / 840 840 / 840 420 / 420 Balance 840 / 840 840 / 840 420 / 420 Laboratory Results 03/04/20 13:33: POC Glucose 135 H Current Medications Acetaminophen (Tylenol) 1,000 mg PO Q6H PRN PRN PRN Reason: Pain Score 1-03/17 Last Admin: 03/02/20 14:14 Dose: 1,000 mg Documented by: Albuterol Sulfate (Ventolin Hfa (Sp)) 1 - 2 puff INHALATION Q6H PRN PRN PRN Reason: SOB &/OR WHEEZING Amlodipine Besylate (Norvasc) 5 mg PO DAILY [facility] Last Admin: 03/04/20 05:09 Dose: 5 mg Documented by: Aspirin (Aspirin, Baby) 81 mg PO DAILY@0800 [facility] Last Admin: 03/04/20 07:48 Dose: 81 mg Documented by: Calamine/Phenol (Calmoseptine Ointment) 1 applic TOPICAL BID [facility]; Protocol Last Admin: 03/04/20 05:20 Dose: 1 applicatio Documented by: [facility] Last Admin: 03/04/20 07:47 Dose: 1,000 mg Documented by: Carvedilol (Coreg) 25 mg PO BID [facility] Last Admin: 03/04/20 05:10 Dose: 25 mg Documented by: Chlorthalidone (Hygroton) 12.5 mg PO DAILY [facility] Last Admin: 03/04/20 05:09 Dose: 12.5 mg Documented by: Cholecalciferol (Vitamin D (25mcg)) [facility] Last Admin: 03/04/20 07:49 Dose: 2,000 unit Documented by: Ciprofloxacin HCl (Cipro) 500 mg PO BID [facility] Stop: 03/06/20 23:59 Last Admin: 03/04/20 05:09 Dose: 500 mg Documented by: Clopidogrel Bisulfate (Plavix) 75 mg PO DAILY [facility] Last Admin: 03/04/20 05:10 Dose: 75 mg Documented by: Emollient Ointment (Eucerin Intensive Repair) 1 applic TOPICAL 4X/DAY PRN PRN; Protocol PRN Reason: Dry Skin Leflunomide (Leflunomide) 20 mg PO DAILY [facility] Last Admin: 03/04/20 05:10 Dose: 20 mg Documented by: Losartan Potassium (Cozaar) 100 mg PO DAILY [facility] Last Admin: 03/03/20 04:36 Dose: 100 mg Documented by: Melatonin (Melatonin) 10 mg PO QHS PRN PRN Reason: INSOMNIA Metronidazole (Flagyl) 500 mg PO TID [facility] Stop: 03/06/20 23:59 Last Admin: 03/04/20 13:22 Dose: 500 mg Documented by: Nystatin (Mycostatin Powder) 1 applic TOPICAL BID [facility]; Protocol Last Admin: 03/04/20 05:20 Dose: 1 applicatio Documented by: Ondansetron HCl (Zofran Odt) 4 mg PO Q8H PRN PRN PRN Reason: NAUSEA Last Admin: 03/04/20 07:44 Dose: 4 mg Documented by: Pantoprazole Sodium (Protonix) 40 mg PO DAILY [facility] Last Admin: 03/04/20 05:10 Dose: 40 mg Documented by: Potassium Chloride (K-Dur) 40 meq PO TIDCM [facility] Last Admin: 03/04/20 13:22 Dose: 40 meq Documented by: Pravastatin Sodium (Pravachol) 20 mg PO QHS [facility] Last Admin: 03/03/20 20:59 Dose: 20 mg Documented by: Prednisone () 5 mg PO DAILY@0800 [facility] Last Admin: 03/04/20 07:50 Dose: 5 mg Documented by: Sodium Chloride () 10 - 40 ml IV UD PRN PRN Reason: SALINE FLUSH Last Admin: 02/25/20 09:01 Dose: 10 ml Documented by: Sodium Chloride () 10 - 40 ml IV UD PRN PRN Reason: SALINE FLUSH Assessment/Plan All Active Problems (Last Reviewed 02/20/20 @ 20:[address] Cesar Chandra MD) Generalized weakness (Acute) Debility (Acute) Fall (Acute) Pancolitis (Acute) Diarrhea (Acute) Ileus (Acute) Dehydration (Resolved)
--- NOTE | 2020-03-04 16:13 | DCINST_ITS ---
- Discharge Diagnoses Current Active Problems: Current Active and Chronic Problems (Last Reviewed 02/20/20 @ 20:[address] Cesar Chandra MD) Seizure (Acute) Hypomagnesemia (Acute) Hyponatremia (Acute) You will use the following diet at home:: No restrictions, Regular Your food should be the consistency of: Regular Your liquids should be the consistency of: Regular/Thin Discharge Activity: Return to Normal Activity, May Shower, Use Walker Weight Bearing Status: Weight bearing as tolerated Call your doctor if you observe: Inability to urinate, Inability to have a bowel movement, Shortness of breath, Chest pain, Uncontrolled pain Allergies/Adverse Reactions: Allergies gabapentin Allergy (Verified 02/20/20 18:50) Unknown nortriptyline Allergy (Verified 02/20/20 18:50) Unknown rofecoxib [From Vioxx] Allergy (Verified 02/20/20 18:50) Unknown tacrolimus Allergy (Verified 02/20/20 18:50) Unknown morphine Adverse Reaction (Verified 02/20/20 18:50) Nausea Medications to take at Discharge Pantoprazole Sodium [Protonix] 40 mg PO DAILY 12/15/14 Acetaminophen [Tylenol Arthritis] 650 mg PO Q4H PRN PRN 11/04/18 Carvedilol 25 mg PO BID 11/04/18 Chlorthalidone 12.5 mg PO DAILY 11/04/18 Cholecalciferol (VIT D3) [Vitamin D3] 2,000 unit PO DAILY 11/04/18 Coenzyme [id number]-[id number] E [Co Q-10 with l-Carnitine Sftgl] 1 cap PO DAILY 11/04/18 Leflunomide 20 mg PO DAILY 11/04/18 Pravastatin Sodium 20 mg PO QHS 11/04/18 Prednisone 5 mg PO DAILY 11/04/18 Albuterol IH (ProAir) [Proair Hfa] 1 - 2 puff INHALATION Q6H PRN PRN #1 inhaler 11/09/18 Aspirin [Aspirin, Baby] 81 mg PO DAILY@0800 tab.chew 11/09/18 amlodipine 2.5 mg tablet 2.5 mg PO DAILY 07/04/19 clopidogrel 75 mg tablet 75 mg PO DAILY 07/04/19 losartan 100 mg tablet 100 mg PO DAILY 07/04/19 potassium chloride 10 mEq tablet,extended release 20 meq PO BID tab 07/04/19 Ondansetron [Zofran Odt] 4 mg PO Q8H PRN PRN #10 tab 01/22/20 Calcium Carbonate [Tums] 1,000 mg PO BIDCM 02/20/20 Ciprofloxacin [Cipro] 500 mg PO BID #14 tab 02/20/20 Metronidazole [Flagyl] 500 mg PO TID #21 tab 02/20/20 Primary Care Physician: Nicolas Villegas MD [Primary Care Provider] - Please follow up with your Primary Care Physician in: 1 week. Test Results: Test results from this visit will be discussed in further detail at your follow- up appointment, if applicable. Proposed Discharge Date: 03/04/20
--- NOTE | 2020-03-04 16:14 | PCM.DC.SUM ---
Discharge Date and Diagnosis - Problem List Patient Problems: Active and Suspected Problems (Last Reviewed 02/20/20 @ 20:[address] Cesar Chandra MD) Seizure (Acute) Hypomagnesemia (Acute) Hyponatremia (Acute) Date of Admission: 03/04/20 Date of Discharge: 03/04/20 - Primary Discharge Diagnosis Acute Problems: Active Problems (Last Reviewed 02/20/20 @ 20:[address] Cesar Chandra MD) Seizure (Acute) Hypomagnesemia (Acute) Hyponatremia (Acute) - Secondary Discharge Diagnosis Chronic Problems: Chronic Problems (Last Reviewed 02/20/20 @ 20:[address] Cesar Chandra MD) Cystitis (Chronic) Polymyalgia rheumatica (Chronic) Debility (Chronic) Fall (Chronic) Pancolitis (Chronic) Diarrhea (Chronic) Ileus (Chronic) Lymphedema (Chronic) Hypertension (Chronic) Chronic kidney disease, stage 2 (mild) (Chronic) GERD (gastroesophageal reflux disease) (Chronic) Coronary artery disease (Chronic) BMI 36.0-36.9,adult (Chronic) Pulmonary hypertension (Chronic) RVSP 55 COPD (chronic obstructive pulmonary disease) (Chronic) AILYN (obstructive sleep apnea) (Chronic) AHI 115 and titrated to nasal CPAP 14 cm of water Atherosclerotic heart disease of [place] coronary artery without angina pectoris (Chronic) Chronic renal insufficiency, stage II (mild) (Chronic) Hyperglycemia, unspecified (Chronic) Carotid stenosis (Chronic) Renal artery stenosis (Chronic) HLD (hyperlipidemia) (Chronic) Benign essential hypertension (Chronic) Hospital Course and Treatment Imaging Results: 03/04/20 13:58 Brain/Head without Contrast [CT] Stat Operations: None Procedures: None Summary of Care Provided: The patient is a 79 year old Female with below past medical history hospitalized for pancolitis, admitted to TCU with debility, here for rehabilitation, strengthening, prior to discharge home. 03/04/20 Resident developed neurologic signs/symptoms, Rapid Response Team called. Discharge to [facility] Emergency Department for evaluation, admission to Hospital. Patient Problems: Active and Suspected Problems (Last Reviewed 02/20/20 @ 20:[address] Cesar Chandra MD) Seizure (Acute) Hypomagnesemia (Acute) Hyponatremia (Acute) - Physical Exam Vitals/I&O's: Vital Signs Temp Pulse Resp BP Pulse Ox 98.2 F 83 14 154/82 H 99 03/04/20 04:00 03/04/20 04:00 03/04/20 13:26 03/04/20 04:00 03/04/20 13:26 Oxygen Delivery Method Non-Rebreather Weight: 84.368 kg Body Mass Index (BMI) 41.2 Intake and Output for Last 24 Hours 03/02/20 03/03/20 03/04/20 23:59 23:59 23:59 Intake Total 840 / 840 840 / 840 420 / 420 Balance 840 / 840 840 / 840 420 / 420 Laboratory Results 03/04/20 13:33: POC Glucose 135 H Discharge Diet: No Restrictions Discharge Activity: Return to Normal Activity, May Shower, Use Walker Weight Bearing Status: Weight bearing as tolerated Call your doctor if you observe: Fever of 101 or Higher, Inability to urinate, Inability to have a bowel movement, Shortness of breath, Chest pain, Uncontrolled pain Home Medications: Medications to take at Discharge Pantoprazole Sodium [Protonix] 40 mg PO DAILY 12/15/14 Acetaminophen [Tylenol Arthritis] 650 mg PO Q4H PRN PRN 11/04/18 Carvedilol 25 mg PO BID 11/04/18 Chlorthalidone 12.5 mg PO DAILY 11/04/18 Cholecalciferol (VIT D3) [Vitamin D3] 2,000 unit PO DAILY 11/04/18 Coenzyme [id number]-Dlg E [Co Q-10 with l-Carnitine Sftgl] 1 cap PO DAILY 11/04/18 Leflunomide 20 mg PO DAILY 11/04/18 Pravastatin Sodium 20 mg PO QHS 11/04/18 Prednisone 5 mg PO DAILY 11/04/18 Albuterol IH (ProAir) [Proair Hfa] 1 - 2 puff INHALATION Q6H PRN PRN #1 inhaler 11/09/18 Aspirin [Aspirin, Baby] 81 mg PO DAILY@0800 tab.chew 11/09/18 amlodipine 2.5 mg tablet 2.5 mg PO DAILY 07/04/19 clopidogrel 75 mg tablet 75 mg PO DAILY 07/04/19 losartan 100 mg tablet 100 mg PO DAILY 07/04/19 potassium chloride 10 mEq tablet,extended release 20 meq PO BID tab 07/04/19 Ondansetron [Zofran Odt] 4 mg PO Q8H PRN PRN #10 tab 01/22/20 Calcium Carbonate [Tums] 1,000 mg PO BIDCM 02/20/20 Ciprofloxacin [Cipro] 500 mg PO BID #14 tab 02/20/20 Metronidazole [Flagyl] 500 mg PO TID #21 tab 02/20/20 Primary Care Physician: Nicolas Villegas MD [Primary Care Provider] - Please follow up with your Primary Care Physician in: 1 week. Disposition: Acute care Hospital Minutes spent on discharge:: 30 Patient Condition:: Guarded Medical Necessity - Tobacco Use Smoking Status: Former smoker Tobacco Use: Non-smoker Meaningful Use Info Meaningful Use Diagnoses (Choose all that apply): None applicable
== END 2020-03-18 22:00 | disposition short-term general hospital (02) | DRG 389 ==
PROVIDERS: Surgery; Admitting Provider Family Medicine Geriatric Medicine; PCP Family Medicine; Visit Provider Family Medicine Geriatric Medicine
DX: K56.7 Ileus, unspecified (principal); K51.00 Ulcerative (chronic) pancolitis without complications; E87.1 Hypo-osmolality and hyponatremia; Z23 Encounter for immunization; E78.5 Hyperlipidemia, unspecified; G47.33 Obstructive sleep apnea (adult) (pediatric); J44.9 Chronic obstructive pulmonary disease, unspecified; I27.20 Pulmonary hypertension, unspecified; M35.3 Polymyalgia rheumatica; I25.10 Atherosclerotic heart disease of native coronary artery without angina pectoris; N18.2 Chronic kidney disease, stage 2 (mild); I12.9 Hypertensive chronic kidney disease with stage 1 through stage 4 chronic kidney disease, or unspecified chronic kidney disease; K21.9 Gastro-esophageal reflux disease without esophagitis; I89.0 Lymphedema, not elsewhere classified; K22.70 Barrett's esophagus without dysplasia; M19.90 Unspecified osteoarthritis, unspecified site; I25.2 Old myocardial infarction; Z87.891 Personal history of nicotine dependence; E87.6 Hypokalemia; B35.4 Tinea corporis; E55.9 Vitamin D deficiency, unspecified; R56.9 Unspecified convulsions
CPT/HCPCS: 36415; 70450; 74018; 74270; 80048; 82962; 83735; 85014; 85018; 85025; 87635; 97110; 97116; 97162; 97166; 97530; 97535; 97802; 99251; C9803; G0008; J7120; 90686; A4216; G0463; U0003

== ENCOUNTER → 2020-02-22 | Outpatient (CLI) | payer MEDICARE, OTHER, SELFPAY ==
[2020-02-21 16:37] VITALS: BMI 41.2
--- NOTE | 2020-02-22 09:13 | CT_ITS ---
STUDY: CT ABDOMEN AND PELVIS WITH CONTRAST REASON FOR EXAM: Female, 79 years old. PANCOLITIS/DIARRHEA. Hx of carotid endarterectomy, cholecystectomy, hysterectomy and lt hip replacement RADIATION DOSAGE (If Supplied By Facility): CTDIvol = ( 20.70 ) mGy, DLP = ( 1425.98 ) mGycm TECHNIQUE: Transaxial images were obtained from the dome of the diaphragm to the symphysis pubis with oral contrast. Oral and amp; IV Gastrografin and amp; 100mL Isovue-300 was administered. Sagittal and coronal images were reconstructed. Individualized dose optimization techniques were used for this CT. COMPARISON: Comparison is made with prior study dated 02/17/2020. FINDINGS: The visualized lung bases are unremarkable. Coronary artery calcification. Vascular calcifications. There is decreased attenuation of the liver consistent with steatosis. Normal gallbladder and extrahepatic biliary system. Normal spleen. Normal pancreas. Normal bilateral adrenal glands. 1.2 cm cyst in the lower pole of the right kidney. Stable 4.3 cm x 4.4 cm cyst in the upper pole of the left kidney. There is a small hiatal hernia. Several fluid-filled small bowel loops without dilatation. Normal colon. The appendix is visualized and appears normal. There is dense atherosclerotic calcification of the abdominal aorta and major visceral branches, without a demonstrated aneurysm. Normal inferior vena cava. Normal retroperitoneum. The previously seen free fluid in the root of the mesentery as resolved. Minimal residual free fluid in the pelvis. Normal urinary bladder. There is absence of the uterus consistent with a prior hysterectomy. Normal abdominal wall. There are diffuse degenerative changes of the visualized lumbar spine. Levoscoliosis. Status post left hip replacement. CT/Abdomen/Pelvis WITH Contrast IMPRESSION: Mild residual changes persist although there has been improvement. Electronically Signed: Pradip Davison, at 12:20 EDT , Service support ,
== END | disposition home or self-care (01) ==
PROVIDERS: PCP Family Medicine; Referring Provider Family Medicine Geriatric Medicine; Visit Provider Family Medicine Geriatric Medicine
DX: K51.00 Ulcerative (chronic) pancolitis without complications (principal); R19.7 Diarrhea, unspecified
CPT/HCPCS: 74177; Q9967; A4216

== ENCOUNTER 2020-02-27 11:00 | Day surgery (SDC) | payer MEDICARE, OTHER, SELFPAY ==
[2020-02-21 16:37] VITALS: BMI 41.2
[2020-02-27] VITALS (7 sets, daily range): BP systolic 96–162; BP diastolic 36–83; PULSE 84–94; RESP 16; TEMP 36.2–36.9; O2SAT 94–99; BMI 37.8
[2020-02-27] MEDS: Lactated Ringers 1,000 ML 75 ML IV (11:25)
--- NOTE | 2020-02-27 12:03 | OP.COLON_ITS ---
Patient Name: Magnolia Ochoa Procedure Date: 02/27/2020 11:10 AM Date of : 1940 Age: 79 Procedure: Colonoscopy Indications: Clinically significant diarrhea of unexplained origin Providers: Michael Conner MD Medicines: See the Anesthesia note for documentation of the administered medications Patient Profile: This is a 79 year old female. Refer to note in patient chart for documentation of history and physical. Last Colonoscopy: date unknown. Unable to locate last colonoscopy report. Complications: No immediate complications. Procedure: Pre-Anesthesia Assessment: - Prior to the procedure, a History and Physical was performed, and patient medications and allergies were reviewed. The patient's tolerance of previous anesthesia was also reviewed. The risks and benefits of the procedure and the sedation options and risks were discussed with the patient. All questions were answered, and informed consent was obtained. Prior Anticoagulants: The patient has taken Plavix (clopidogrel), last dose was 5 days prior to procedure. ASA Grade Assessment: III - A patient with severe systemic disease. After reviewing the risks and benefits, the patient was deemed in satisfactory condition to undergo the procedure. After I obtained informed consent, the scope was passed under direct vision. Throughout the procedure, the patient's blood pressure, pulse, and oxygen saturations were monitored continuously. The adult colonoscope was introduced through the anus with the intention of advancing to the cecum. The scope was advanced to the sigmoid colon before the procedure was aborted. Medications were given. The colonoscopy was aborted due to the difficulty of the procedure. Scope In: 11:37:57 AM Scope Out: 11:55:18 AM Total Procedure Duration Time 0 hours 17 minutes 21 seconds Findings: The recto-sigmoid colon appeared normal. No biopsies or other specimens were collected for this exam. Impression: - The procedure was aborted due to the difficulty of the procedure. - The recto-sigmoid colon is normal. No specimens collected. Recommendation: - [facility]. - Resume previous diet. - Continue present medications. - Perform an air contrast barium enema today. - Repeat colonoscopy at appointment to be scheduled for surveillance. Procedure Code(s): --- Professional --- 32646, 53, Colonoscopy, flexible; diagnostic, including collection of specimen(s) by brushing or washing, when performed (separate procedure) Diagnosis Code(s): --- Professional --- Z53.8, Procedure and treatment not carried out for other reasons R19.7, Diarrhea, unspecified CPT copyright 2017 [employer]. All rights reserved. The codes documented in this report are preliminary and upon picture framer review may be revised to meet current compliance requirements. MD Michael Martino MD 02/27/2020 12:02:09 PM This report has been signed electronically. Number of Addenda: 0 Note Initiated On: 02/27/2020 11:10 AM
--- NOTE | 2020-02-27 12:03 | OP.CCLET_ITS ---
02/27/2020 Nicolas Villegas Re : Colonoscopy procedure for Magnolia Swensonr Nelly This procedure was performed on Thursday, February 27, 2020. My impressions and recommendations are as follows: Impressions : - The procedure was aborted due to the difficulty of the procedure. - The recto-sigmoid colon is normal. No specimens collected. Recommendations : - [facility] to [facility]. - Resume previous diet. - Continue present medications. - Perform an air contrast barium enema today. - Repeat colonoscopy at appointment to be scheduled for surveillance. My findings are described in the full procedure note, which is enclosed. If I can be of further assistance, please feel free to contact me at Doctor phone number(s): , Fax: [phone], Work: . Sincerely, MD Michael Martino MD 02/27/2020 12:02:09 PM This report has been signed electronically.
== END 2020-02-27 13:27 ==
LOC: EN 11:02 → AC 11:02
PROVIDERS: PCP Family Medicine; Referring Provider Family Medicine; Visit Provider Surgery
PROC: 0DJD8ZZ Inspection of Lower Intestinal Tract, Via Natural or Artificial Opening Endoscopic (ICD-10-PCS; CPT 45378; principal; 2020-02-27 11:25)
DX: Z53.8 Procedure and treatment not carried out for other reasons (principal); R19.7 Diarrhea, unspecified
CPT/HCPCS: 45378; J1610

== ENCOUNTER 2020-03-04 14:01 | Inpatient (IN) | payer MEDICARE, OTHER, SELFPAY ==
[2020-02-27 11:11] VITALS: BMI 37.8
[2020-03-04] VITALS (11 sets, daily range): BP systolic 122–161; BP diastolic 70–108; PULSE 90–113; RESP 17–25; TEMP 36.4–36.9; O2SAT 93–99; BMI 37.0; BMI 37.5
--- NOTE | 2020-03-04 13:58 | CT_ITS ---
STUDY: CT BRAIN WITHOUT CONTRAST REASON FOR EXAM: Female, 79 years old. CVA, unresponsive earlier and confused, now resolving. RADIATION DOSAGE (If Supplied By Facility): CTDIvol = ( 44.99 ) mGy, DLP = ( 762.36 ) mGycm TECHNIQUE: Transaxial CT imaging of the brain was performed without administration of intravenous contrast material. Individualized dose optimization techniques were used for this CT. COMPARISON: No relevant priors. FINDINGS: Normal soft tissue structures. Normal calvarium. There is mild cerebral atrophy with widening of the extra-axial spaces and ventricular dilatation. There are areas of decreased attenuation within the white matter tracts of the supratentorial brain, consistent with microvascular disease changes. Normal basal ganglia and thalami. Normal brainstem. Normal cerebellum. There is no intracranial hemorrhage. There are no findings of an acute ischemic infarction. Normal visualized paranasal sinuses. CT/Brain/Head without Contrast IMPRESSION: 1. No acute intracranial hemorrhage or mass effect. 2. Central parenchymal volume loss. White matter changes that are nonspecific but most commonly associated with chronic small vessel ischemic disease. N.B. : The above information has been verbally conveyed by Devaughn Cortes MD (Brooks) to Rene Perez MD, on 03/04/2020 14:13:37 (ET). Electronically Signed: Devaughn Cortes MD (Brooks) at 14:10 EDT , Service support ,
--- NOTE | 2020-03-04 14:04 | NURSING ---
MICA PATCHER AT [id number]
--- NOTE | 2020-03-04 14:10 | EKG12_ITS ---
Test Reason : Blood Pressure : / mmHG Vent. Rate : 109 BPM Atrial Rate : 109 BPM P-R Int : 156 ms QRS Dur : 080 ms QT Int : 324 ms P-R-T Axes : 043 057 032 degrees QTc Int : 436 ms Sinus tachycardia Otherwise normal ECG When compared with ECG of 13-FEB-2020 19:24, Premature atrial complexes are no longer Present Nonspecific T wave abnormality now evident in Inferior leads Confirmed by JORGE FLOR, NATALIA ([id number]), medical editor JOSÉ HOLT ([id number]) on 03/06/2020 11:34:25 AM Referred By: VITALY Confirmed By:NATALIA PATEL MD
--- NOTE | 2020-03-04 14:12 | EKG12_ITS ---
Test Reason : STROKE Blood Pressure : / mmHG Vent. Rate : 099 BPM Atrial Rate : 099 BPM P-R Int : 166 ms QRS Dur : 074 ms QT Int : 352 ms P-R-T Axes : 030 039 067 degrees QTc Int : 451 ms Normal sinus rhythm Normal ECG Confirmed by VIKAS FLOR, TERRA ([id number]), editorial assistant RC OSEI ([id number]) on 03/08/2020 8:27:32 AM Referred By: YAA Confirmed By:KONRAD BEAN MD
[2020-03-04 14:15] LABS: Absolute Lymphocyte Count 0.51 X10^3/uL (0.83-4.51); Absolute Neutrophil Count 8.3 X10^3/uL (2.0-7.7); Basophil# 0.08 X10^3/uL; Basophil% 0.8 % (0-1); Eosinophil# 0.15 X10^3/uL; Eosinophils% 1.5 % (0-5); Hematocrit 34.2 % (37-47); Hemoglobin 10.8 g/dL (12.0-15.0); Lymphocyte # 0.51 X10^3/ul (4.0); Lymphocyte % 4.9 % (19-41); Mean Corp Hgb Conc 31.6 g/dL (32-36); Mean Corpuscular Hgb 29.7 pg (27.0-32.0); Mean Platelet Vol. 9.4 fl (6.2-12.0); Monocyte# 1.16 X10^3/uL; Monocyte% 11.2 % (0-10); NRBC Flagged by Analyzer 0 % (0-5); Neutrophil # 8.31 X10^3/uL (2.7-7.7); Neutrophil % 80.5 % (47-70); POSITIVE DIFFERENTIAL YES; Platelet Count 261 K/mm3 (150-450); RBC Distribution Width CV 14.5 % (11.6-14.6); Red Blood Count 3.64 M/mm3 (4.2-5.4); White Blood Count 10.3 K/mm3 (4.4-11.0)
[2020-03-04 14:16] LABS: Differential Indicated SCAN CRITERIA MET
[2020-03-04 14:22] LABS: Partial Thromboplast Time 27.9 Seconds (24.1-36.2)
[2020-03-04 14:31] LABS: Anion Gap 7 (5-15); BUN 9 mg/dL (7-18); BUN/Creat Ratio 7.7 RATIO (10-20); Calcium,Total 7.7 mg/dL (8.5-10.1); Chloride 99 mmol/L (98-107); Creatinine, Serum 1.17 mg/dL (0.55-1.02); EST Glomerular Filtration Rate 47 mL/min (>60); Est Glom Filt Rate - Afr Amer 57 mL/min (>60); Estimated Creatinine Clearance 29.42 ml/min; Glucose 126 mg/dL (74-106); Potassium 4.7 mmol/L (3.5-5.1); Prolactin 98.1 ng/mL; Sodium Level 131 mmol/L (136-145)
--- NOTE | 2020-03-04 14:35 | ED.DCSUM_ITS ---
- ER Visit Summary Date of Service: 03/04/20 Chief Complaint: Possible stroke [] History of Present Illness: The patient is a 79 F [presents to the emergency department from the transitional care unit. Patient was on the transitional care unit when a rapid response was called and the hospitalist went up to the unit to evaluate the patient. Patient apparently had asked for some water while sitting and the nursing staff went to get her water and when he came back he noted the patient was unresponsive and shaking and was bleeding from the mouth. The shaking lasted approximately 3 to 5 minutes. Patient was confused afterwards. Hospitalist noted that patient's mouth was clenched. Patient does not have seizure history. Initially patient was taken to CT scan and then brought to the emergency department. On arrival to the emergency department the patient is awake and alert and denies any complaints. She denies chest pain or abdominal pain. She denies headache. Patient is being treated for UTI and is on Cipro.] Physical Examination: [HEENT-PERRLA, EOMI. Cranial nerves II through XII grossly intact. TMs clear. Mucous membranes moist. No adenopathy. Patient has bite wounds to the lips and tongue. Cardiovascular-regular rate and rhythm without murmur or ectopy Lungs-clear to auscultation, chest wall stable without crepitus or subcu emphysema Abdomen-normoactive bowel sounds, soft, nontender, no rebound or rigidity, no peritoneal signs. Neuro exam-NIH stroke scale was 0. Patient has no facial droop. No focal weakness noted. Babinski's downgoing bilaterally. Extremities-intact ?4, normal range of motion, normal pulses, atraumatic] Test Results: [On arrival stroke team was called. Patient CT scan of the brain was unremarkable. EKG obtained showed a sinus rhythm with a ventricular rate of 99 bpm. CBC with differential was normal. Chemistries unremarkable. Troponin was 0.023. Prolactin level was elevated at 98.] Emergency Department Course and Treatment: [IV line was established. Patient was placed on monitoring and evaluation advisor. Was discussed with neurology and they agree that likely this is not a stroke and more likely this was a seizure.] Treatment Plan: Admit for further evaluation of seizure [] Disposition: [Admit] Impression: [New onset seizure] This note was generated with [employer]comation software. It may contain incorrect words, spelling, and punctuation that were not noted in review of the chart prior to signing ED Disposition - Plan for ED Patient: Referrals: Nicolas Villegas MD [Primary Care Provider] -
[2020-03-04 14:38] LABS: Platelet Estimate ADEQUATE (ADEQ)
[2020-03-04 14:39] LABS: Hypochromasia 1+
--- NOTE | 2020-03-04 14:55 | NURSING ---
DR HAIDER IN ROOM
[2020-03-04] MEDS: 0.9% Normal Saline 1,000 ML 100 ML IV ×2 (15:02→18:08)
--- NOTE | 2020-03-04 15:04 | NURSING ---
PCU OBS VITALY SEIZURE
--- NOTE | 2020-03-04 15:15 | RAD_ITS ---
STUDY: X-RAY CHEST REASON FOR EXAM: Female, 79 years old. hypertension TECHNIQUE: AP COMPARISON: 11/07/2018 FINDINGS: EKG leads project over the chest. Surgical clips project at the base of the neck. There appears to be a right carotid stent. The lungs are clear and expanded. There is no demonstrated pleural abnormality. Normal size heart. Normal mediastinum and surekha. Normal visualized pulmonary arteries. There is atherosclerotic calcification of the aortic arch with tortuosity. Normal visualized thoracic spine. Normal visualized ribs, clavicles, and shoulders. There is no demonstrated abnormality of the visualized soft tissue structures of the upper abdomen. RAD/Chest 1 View IMPRESSION: Stable, nonacute portable x-ray examination of the chest. Electronically Signed: Devaughn Cortes MD (Brooks) at 15:31 EDT , Service support ,
--- NOTE | 2020-03-04 15:18 | HP.PCM_ITS ---
Problem List (1) Severe sepsis Status: Inactive (2) Colitis Status: Inactive (3) Cystitis Status: Chronic (4) Polymyalgia rheumatica Status: Chronic (5) Generalized weakness Status: Acute (6) Debility Status: Chronic (7) Fall Status: Chronic (8) Pancolitis Status: Chronic (9) Diarrhea Status: Chronic (10) Ileus Status: Chronic (11) Lymphedema Status: Chronic (12) Hypertension Status: Chronic (13) Chronic kidney disease, stage 2 (mild) Status: Chronic (14) GERD (gastroesophageal reflux disease) Status: Chronic (15) Coronary artery disease Status: Chronic (16) BMI 36.0-36.9,adult Status: Chronic (17) Pulmonary hypertension Status: Chronic Comment: RVSP 55 (18) COPD (chronic obstructive pulmonary disease) Status: Chronic Qualifiers: (19) AILYN (obstructive sleep apnea) Status: Chronic Comment: AHI 115 and titrated to nasal CPAP 14 cm of water (20) Atherosclerotic heart disease of viejas coronary artery without angina pectoris Status: Chronic Qualifiers: (21) Acute respiratory failure with hypoxia Status: Inactive (22) Right lower lobe pneumonia Status: Inactive Qualifiers: (23) Sinus tachycardia by electrocardiogram Status: Inactive (24) Chronic renal insufficiency, stage II (mild) Status: Chronic (25) Hyperglycemia, unspecified Status: Chronic (26) Carotid stenosis Status: Chronic Qualifiers: (27) Renal artery stenosis Status: Chronic (28) HLD (hyperlipidemia) Status: Chronic Qualifiers: (29) Benign essential hypertension Status: Chronic (30) Seizure Status: Acute (31) Hypomagnesemia Status: Acute (32) Hyponatremia Status: Acute History of Present Illness Date of Admission: 03/04/20 Chief Complaint: Seizure or seizure-like movement with altered mental status in TCU today The patient is a 79 year old F with multiple comorbidities listed above had rapid response called about 1320 hrs. on 03/04/2020 for altered mental status with seizure-like movement of upper body.As per the nurse taking care of the patient in TCU, she asked for drinking water and when RN returned, she was found to be jerking mainly upper body, eyes closed, not responding, head dropping on one side on the chair. He was confused as disoriented. During rapid response, vitals: heart rate 98/min, pulse ox 95% on room air blood pressure was 176/99.Glucose was 135. Twelve-lead EKG was done shows sinus tachycardia at 109 bpm. QTC 436 ms. She was admitted on February 12 on MedSurg for pancolitis and was discharged after 1 week of hospital stay on Cipro and Flagyl. She was readmitted on 02/19 on same day of discharge with fall and then further admitted to TCU for rehab. Patient was seen by surgeon Dr. Conner and Dr. garnica and was unable to do colonoscopy beyond sigmoid region therefore had barium enema. Barium enema reported extensive sigmoid diverticulosis with mucosal edema suggestive of dive rticulitis. No evidence of obstruction.Started for antibiotic Cipro and Flagyl on 02/12 with a stop date on 03/06/2020 In ED, she became more active awake and alert and NIH stroke scale found 0. Initially related to vascular Dilcia secondary to confusion and disorientation. No speech abnormality. Mild lateral lower extremity weakness probably secondary to chronic She was given labetalol 20 g IV and blood pressure control 122/108. CTA does not show acute change. Chest x-ray done and individually reviewed. No acute abnormality. There is no official report yet. [] Past Medical History Past Medical History (Chronic Problems): Chronic Problems (Last Reviewed 02/20/20 @ 20:[address] Cesar Chandra MD) Cystitis (Chronic) Polymyalgia rheumatica (Chronic) Debility (Chronic) Fall (Chronic) Pancolitis (Chronic) Diarrhea (Chronic) Ileus (Chronic) Lymphedema (Chronic) Hypertension (Chronic) Chronic kidney disease, stage 2 (mild) (Chronic) GERD (gastroesophageal reflux disease) (Chronic) Coronary artery disease (Chronic) BMI 36.0-36.9,adult (Chronic) Pulmonary hypertension (Chronic) RVSP 55 COPD (chronic obstructive pulmonary disease) (Chronic) AILYN (obstructive sleep apnea) (Chronic) AHI 115 and titrated to nasal CPAP 14 cm of water Atherosclerotic heart disease of viejas coronary artery without angina pectoris (Chronic) Chronic renal insufficiency, stage II (mild) (Chronic) Hyperglycemia, unspecified (Chronic) Carotid stenosis (Chronic) Renal artery stenosis (Chronic) HLD (hyperlipidemia) (Chronic) Benign essential hypertension (Chronic) Medical History: Medical History (Last Reviewed 02/20/20 @ 20:[address] Cesar Chandra MD) Atherosclerotic heart disease of viejas coronary artery without angina pectoris (Chronic) I25.10 Acute respiratory failure with hypoxia (Inactive) J96.01 Right lower lobe pneumonia (Inactive) J18.1 Sinus tachycardia by electrocardiogram (Inactive) R00.0 Chronic renal insufficiency, stage II (mild) (Chronic) N18.2 Hyperglycemia, unspecified (Chronic) R73.9 Carotid stenosis (Chronic) I65.29 Renal artery stenosis (Chronic) I70.1 HLD (hyperlipidemia) (Chronic) E78.5 Benign essential hypertension (Chronic) I10 Acute kidney insufficiency N28.9 NSTEMI (non-ST elevated myocardial infarction) I21.4 Barretts esophagus K22.70 Cerebrovascular disease I67.9 Former smoker, stopped smoking many years ago Z87.891 History of bleeding peptic ulcer Z87.11 Osteoarthritis Dehydration (Resolved) E86.0 Pneumonia J18.9 Severe sepsis A41.9, R65.20 Allergies gabapentin Allergy (Verified 02/20/20 18:50) Unknown nortriptyline Allergy (Verified 02/20/20 18:50) Unknown rofecoxib [From Vioxx] Allergy (Verified 02/20/20 18:50) Unknown tacrolimus Allergy (Verified 02/20/20 18:50) Unknown morphine Adverse Reaction (Verified 02/20/20 18:50) Nausea Home Medications: Ambulatory Orders Medication Instructions Recorded Pantoprazole Sodium [Protonix] 40 mg PO DAILY 12/15/14 Acetaminophen [Tylenol Arthritis] 650 mg PO Q4H PRN PRN 11/04/18 Carvedilol 25 mg PO BID 11/04/18 Chlorthalidone 12.5 mg PO DAILY 11/04/18 Cholecalciferol (VIT D3) [Vitamin 2,000 unit PO DAILY 11/04/18 D3] Coenzyme [id number] E [Co 1 cap PO DAILY 11/04/18 Q-10 with l-Carnitine Sftgl] Leflunomide 20 mg PO DAILY 11/04/18 Pravastatin Sodium 20 mg PO QHS 11/04/18 Prednisone 5 mg PO DAILY 11/04/18 Albuterol IH (ProAir) [Proair Hfa] 1 - 2 puff INHALATION Q6H PRN PRN 11/09/18 #1 inhaler Aspirin [Aspirin, Baby] 81 mg PO DAILY@0800 tab.chew 06/04/19 amlodipine 2.5 mg tablet 2.5 mg PO DAILY 07/04/19 clopidogrel 75 mg tablet 75 mg PO DAILY 07/04/19 losartan 100 mg tablet 100 mg PO DAILY 07/04/19 potassium chloride 10 mEq 20 meq PO BID tab 07/04/19 tablet,extended release Ondansetron [Zofran Odt] 4 mg PO Q8H PRN PRN #10 tab 01/22/20 Calcium Carbonate [Tums] 1,000 mg PO BIDCM 02/20/20 Ciprofloxacin [Cipro] 500 mg PO BID #14 tab 02/20/20 Metronidazole [Flagyl] 500 mg PO TID #21 tab 02/20/20 Surgical History: Surgical History (Last Reviewed 02/20/20 @ 20:[address] Cesar Chandra MD) H/O carotid endarterectomy Z98.890 History of cholecystectomy Z90.49 History of hysterectomy Z90.710 History of left hip replacement Z96.642 History of total right knee replacement Z96.651 Surgical History: appendectomy, cholecystectomy, hysterectomy, total hip arthroplasty - Left., total knee arthroplasty - Right., - - Exploratory laparotomy, carotid endarterectomy. 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 Cesar Chandra MD) Mother Cancer Father Emphysema of lung Aunt Cancer Grandfather Vascular disease Grandmother Diabetes Brother Cancer History Items: No pertinent history Maternal Family History: Family History (Last Reviewed 02/20/20 @ 20:[address] Cesar Chandra MD) Mother Cancer Father Emphysema of lung Aunt Cancer Grandfather Vascular disease Grandmother Diabetes Brother Cancer History Items: No pertinent history Review of Systems Constitutional: Denies: Chills, Fever, Weight Change HEENT: Denies: Head Aches, Sinus Congestion, Sinus Drainage Cardiovascular: Denies: Chest Pain, Palpitations Respiratory: Denies: Cough, Shortness of breath at rest, Sputum production Gastrointestinal: Reports: Diarrhea - Patient having diarrhea about 5-10 every day. It is liquid in consistency.. Denies: Abdominal Pain, Hematemesis, Hematochezia, Nausea, Melena, Vomiting Genitourinary: Denies: Dysuria, Frequency, Hesitancy Musculoskeletal: Reports: Joint Pain - Right TKR., Joint stiffness. Denies: Joint Tenderness Skin: Denies: Rash, Wounds Neurological: Denies: Numbness, Tingling, Focal weakness Psychiatric: Denies: Anxiety, Depression, Homicidal Ideations, Suicidal Ideations Hematologic/ Lymphatic: Denies: Easy Bruising, Easy Bleeding VTE Information - Inpt Only VTE Present on Admission: No VTE Mechan Device Prophylaxis: None VTE Pharm Prophylaxis ordered?: Yes Patient Problems: Active and Suspected Problems (Last Reviewed 02/20/20 @ 20:[address] Cesar Chandra MD) Seizure (Acute) Hypomagnesemia (Acute) Hyponatremia (Acute) Objective: Physical exam General: Alert, Oriented x3, Cooperative HEENT: Atraumatic, PERRLA, EOMI, Normocephalic Oral: No Gingival or Mucosal Lesions/ Ulcerations Neck: Supple, No JVD, Negative Carotid Bruits Lungs: Air entry diminished in bilateral lung bases. No crepitation/rhonchi. No hypoxia. Respiratory rate 17 to 25/min. Cardiovascular: Regular rate, Regular Rhythm, Normal S1, Normal S2, No murmurs Abdomen: Soft, mild tenderness present on the left lower quadrant. Nondistended. Bowel Sounds Present. No palpable mass : No renal angle tenderness. No suprapubic tenderness. Extremities: Subtle bilateral ankle edema, Capillary Refill Less than 3 Seconds Skin: No rashes, No breakdown Musculoskeletal: Right TKR. Mild bilateral lower extremity weakness. Bilateral Abdulaziz wrap bandage. No Tenderness to Palpation of Joints or Extremities Neurological: Cranial nerves II-XII grossly intact, Deep Tendon Reflexes 2+/4 and Symmetrical, Neuro grossly intact Psych/Mental Status: Normal Affect, Appropriate. - Physical Exam Vitals/I&O's: Vital Signs Temp Pulse Resp BP Pulse Ox 98.4 F 90 25 H 122/108 H 98 03/04/20 15:02 03/04/20 15:02 03/04/20 15:02 03/04/20 15:02 03/04/20 15:02 Oxygen Flow Rate (L/min) 2 Oxygen Delivery Method Nasal Cannula Weight: 196 lb Body Mass Index (BMI) 37.0 Finger Stick Blood Glucose 135 Laboratory Results 03/04/20 14:05: WBC 10.3, RBC 3.64 L, Hgb 10.8 L, Hct 34.2 L, MCV 94.0, MCH 29.7, MCHC 31.6 L, RDW Std Deviation 50.0 H, RDW Coeff of Blaine 14.5, Plt Count 261, MPV 9.4, Immature Gran % (Auto) 1.100 H, Neut % (Auto) 80.5 H, Lymph % (Auto) 4.9 L, Mccormick % (Auto) 11.2 H, Eos % (Auto) 1.5, Baso % (Auto) 0.8, Absolute Neuts (auto) 8.3 H, Absolute Lymphs (auto) 0.51 L, Nucleated RBC % 0, Platelet Estimate ADEQUATE, Hypochromasia 1+ 03/04/20 14:05: PT 13.0, INR 1.0, APTT 27.9 03/04/20 14:05: Sodium 131 L, Potassium 4.7, Chloride 99, Carbon Dioxide 25.0, Anion Gap 7, BUN 9, Creatinine 1.17 H, Estim Creat Clear Calc 29.42, Est GFR (MDRD) Af Amer 57 L, Est GFR (MDRD) Non-Af 47 L, BUN/Creatinine Ratio 7.7 L, Glucose 126 H, Calcium 7.7 L, Troponin I 0.023, Prolactin 98.1 03/04/20 14:05: Magnesium Pending, Total Bilirubin Pending, Direct Bilirubin Pending, AST Pending, ALT Pending, Alkaline Phosphatase Pending, Total Protein Pending, Albumin Pending Current Medications Sodium Chloride () 1,000 mls @ 100 mls/hr IV .Q10H ONE Stop: 03/05/20 00:08 Last Admin: 03/04/20 15:02 Dose: 100 mls/hr Documented by: Labetalol HCl (Trandate) 20 mg IV X1 PRN PRN Reason: Blood Pressure Assessment/Plan All Active Problems (Last Reviewed 02/20/20 @ 20:[address] Cesar Chandra MD) Generalized weakness (Acute) Seizure (Acute) Hypomagnesemia (Acute) Hyponatremia (Acute) Dehydration (Resolved) The patient is a 79 year old F with multiple comorbidities listed above had rapid response called about 1320 hrs. on 03/04/2020 for altered mental status with seizure-like movement of upper body and then she was admitted. Patient having diarrhea about 5-10 times a day for about 5 to 6 days. 1. Seizure/seizure-like movement most likely due to hypomagnesemia, from diarrhea possible aggravated by Cipro and Flagyl: Patient is being admitted in PCU. Patient had another rapid response for seizure while the patient was in hallway for transfer to PCU. Patient has been on antibiotic Cipro/Flagyl since 02/12 almost close to 4 weeks. I think seizure is most likely precipitated by severe hypomagnesemia, magnesium 0.9 and seizure threshold may be lowered by Cipro and Flagyl. Magnesium 4 g IV is running. Antibiotic discontinued. IV fluid normal saline at 100 mL per hour. IV Ativan 2 mg IV every 4 hourly as needed for seizure. Patient is being loaded with Keppra 1 g and then 500 mg every 12 hourly. 2. Severe hypomagnesemia from diarrhea: Magnesium sulfate is being replaced. K normal. Will order phosphorus. 3. Hypotonic hypovolemic hyponatremia from diarrhea: Patient baseline sodium runs around 133 probably lower from chlorthalidone. Currently is 131. Will hold chlorthalidone. IV fluid normal saline. Probiotic ordered 4. Resolving pancolitis secondary to diverticulitis: As mentioned above patient has almost 4 weeks of IV antibiotics. Continue to follow-up with surgery. 5. Hypertension: Blood pressure gets intermittently high probably secondary to seizure episode. During second rapid response her blood pressure went up 185/89 and in 5 minutes was 138/99, heart rate 103. 6. Other comorbidities include polymyalgia rheumatica, peripheral arterial disease history of carotid artery stenosis and stent, dyslipidemia, generalized weakness, debility and fall: Patient on prednisone 5 mg daily. Prednisone decreased to 2.5 mg daily. VTE prophylaxis: Lovenox 40 minutes of daily discontinue if platelet count drops less than 50,000 or hemoglobin less than 8 g% Living will/advanced directive/end of life care: Patient does have living will or advanced directive. Patient's daughter is power of trust and estates attorney for health. After discussion of procedures involved with full code, DNR CC arrest and DNR CC, the patient opted for full code. Patient does want artificial life support including intubation, tube feed, ventilator and/chest compression, central venous catheter, vasopressor and DC shock if needed Total time spent in [id number] encounter in discussion of advanced directive 16 minutes. Clinical Impression(s) from Imaging Studies Chest X-Ray 03/04/20 15:15 IMPRESSION: Stable, nonacute portable x-ray examination of the chest. Inpatient E&M: 90224 Init Hosp L3 Procedures: 91602 Advncd Care Plan 30 Min
[2020-03-04 15:33] LABS: AST(SGOT) 73 U/L (15-37); Alanine Aminotransfer ALT/SGPT 27 U/L (13-56); Albumin, Serum 2.9 g/dL (3.2-5.0); Alkaline Phosphatase 82 U/L (45-117); Bilirubin, Direct 0.06 mg/dL (0.00-0.30); Globulin 3.5 g/dL (2.2-4.2); Magnesium 0.9 mg/dL (1.6-2.6); Protein, Total 6.4 g/dL (6.4-8.2)
--- NOTE | 2020-03-04 15:38 | ED.RN ---
rn took critical lab of magnesium 0.4, called account group supervisor and made aware during the rapid response.
--- NOTE | 2020-03-04 15:48 | RRT_ITS ---
Rapid Response Note Rapid response was again called about 1539 hrs. with the patient was in hallway noted transfer to PCU. Patient was again re-unresponsive, having seizure, tight jaw muscles, eyes closed and predominantly upper body tonic-clonic seizure. Labs shows magnesium 0.9. Other labs mentioned in H&P. Liver profile AST 73, ALT 27 albumin 2.9. I feel it patient having seizure probably secondary to hypomagnesemia secondary to diarrhea: Magnesium 4 g IV piggyback is running, initial 2 g in 1 hour. The dose discussed with the pharmacist. Twelve-lead EKG shows normal sinus rhythm at 99 bpm. For rest of the assessment and plan, please see H&P Patient Problems: Active and Suspected Problems (Last Reviewed 02/20/20 @ 20:[address] Cesar Chandra MD) Seizure (Acute) - Physical Exam Vitals/I&O's: Vital Signs Temp Pulse Resp BP Pulse Ox 98.4 F 90 25 H 122/108 H 98 03/04/20 15:02 03/04/20 15:02 03/04/20 15:02 03/04/20 15:02 03/04/20 15:02 Oxygen Flow Rate (L/min) 2 Oxygen Delivery Method Nasal Cannula Weight: 196 lb Body Mass Index (BMI) 37.0 Finger Stick Blood Glucose 135 Laboratory Results 03/04/20 14:05: WBC 10.3, RBC 3.64 L, Hgb 10.8 L, Hct 34.2 L, MCV 94.0, MCH 29.7, MCHC 31.6 L, RDW Std Deviation 50.0 H, RDW Coeff of Blaine 14.5, Plt Count 261, MPV 9.4, Immature Gran % (Auto) 1.100 H, Neut % (Auto) 80.5 H, Lymph % (Auto) 4.9 L, [facility] % (Auto) 11.2 H, Eos % (Auto) 1.5, Baso % (Auto) 0.8, Absolute Neuts (auto) 8.3 H, Absolute Lymphs (auto) 0.51 L, Nucleated RBC % 0, Platelet Estimate ADEQUATE, Hypochromasia 1+ 03/04/20 14:05: PT 13.0, INR 1.0, APTT 27.9 03/04/20 14:05: Sodium 131 L, Potassium 4.7, Chloride 99, Carbon Dioxide 25.0, Anion Gap 7, BUN 9, Creatinine 1.17 H, Estim Creat Clear Calc 29.42, Est GFR (MDRD) Af Amer 57 L, Est GFR (MDRD) Non-Af 47 L, BUN/Creatinine Ratio 7.7 L, Glucose 126 H, Calcium 7.7 L, Troponin I 0.023, Prolactin 98.1 03/04/20 14:05: Magnesium 0.9 L*, Total Bilirubin 0.40, Direct Bilirubin 0.06, AST 73 H, ALT 27, Alkaline Phosphatase 82, Total Protein 6.4, Albumin 2.9 L, Globulin 3.5 Current Medications Sodium Chloride () 1,000 mls @ 100 mls/hr IV .Q10H ONE Stop: 03/05/20 00:08 Last Admin: 03/04/20 15:02 Dose: 100 mls/hr Documented by: Magnesium Sulfate () 4 gm in 100 mls @ 25 mls/hr IV X1 ONE Stop: 03/04/20 19:34 Labetalol HCl (Trandate) 20 mg IV X1 PRN PRN Reason: Blood Pressure Assessment/Plan All Active Problems (Last Reviewed 02/20/20 @ 20:[address] Cesar Chandra MD) Generalized weakness (Acute) Seizure (Acute) Dehydration (Resolved)
[2020-03-04 16:05] LABS: Bedside Glucose 145 mg/dL (70-110)
[2020-03-04] MEDS: levETIRAcetam IV 1,000 MG/100 ML BAG 400 MG IV (16:11)
[2020-03-04] MEDS: Magnesium Sulfate 4gm/100mL 4 GM/100 ML IV.SOLN. IV (16:11)
[2020-03-04] MEDS: LORazepam 2 MG/ML Syringe 1 MG IV (16:11)
[2020-03-04 17:02] LABS: Phosphorus 2.4 mg/dL (2.5-4.9)
[2020-03-04] MEDS: 0.9% Saline Lock 10 ML Syringe IV (17:14)
[2020-03-04] MEDS: Calcium Carbonate 500 MG Tablet 1000 MG PO (18:05)
[2020-03-04] MEDS: Enoxaparin 30 MG/0.3 ML Syringe SC (18:06)
[2020-03-04 20:34] LABS: Magnesium 2.4 mg/dL (1.6-2.6)
[2020-03-04] MEDS: Carvedilol 25 MG Tablet PO (21:10)
[2020-03-04] MEDS: Pravastatin 20 MG Tablet PO (21:10)
[2020-03-05] VITALS (9 sets, daily range): BP systolic 135–151; BP diastolic 55–78; PULSE 76–84; RESP 15–18; TEMP 36.3–37.1; O2SAT 94–97
[2020-03-05 05:25] LABS: Absolute Lymphocyte Count 0.63 X10^3/uL (0.83-4.51); Basophil# 0.05 X10^3/uL; Basophil% 0.9 % (0-1); Eosinophil# 0.15 X10^3/uL; Eosinophils% 2.7 % (0-5); Hematocrit 34.2 % (37-47); Hemoglobin 10.5 g/dL (12.0-15.0); Lymphocyte # 0.63 X10^3/ul (4.0); Lymphocyte % 11.2 % (19-41); Mean Corp Hgb Conc 30.7 g/dL (32-36); Mean Corpuscular Hgb 29.4 pg (27.0-32.0); Mean Corpuscular Volume 95.8 fL (81-99); Monocyte# 0.75 X10^3/uL; Monocyte% 13.4 % (0-10); NRBC Flagged by Analyzer 0 % (0-5); Neutrophil # 3.95 X10^3/uL (2.7-7.7); Neutrophil % 70.4 % (47-70); Platelet Count 234 K/mm3 (150-450); RBC Distribution Width CV 14.4 % (11.6-14.6); RBC Distribution Width SD 50.4 fl (35.1-43.9); Red Blood Count 3.57 M/mm3 (4.2-5.4); White Blood Count 5.6 K/mm3 (4.4-11.0)
[2020-03-05 05:40] LABS: Anion Gap 6 (5-15); BUN 7 mg/dL (7-18); BUN/Creat Ratio 8.1 RATIO (10-20); Chloride 100 mmol/L (98-107); Creatinine, Serum 0.86 mg/dL (0.55-1.02); EST Glomerular Filtration Rate 67 mL/min (>60); Est Glom Filt Rate - Afr Amer 82 mL/min (>60); Estimated Creatinine Clearance 40.03 ml/min; Glucose 85 mg/dL (74-106); Potassium 3.8 mmol/L (3.5-5.1); Sodium Level 131 mmol/L (136-145)
--- NOTE | 2020-03-05 08:06 | TELEMED_ITS ---
[facility] Telemed has confirmed receipt of a request for visit. This document confirms receipt of the order initiating the consult. To find the results of the consultation, please view the patient's reports for the scanned Telemed Consult.
--- NOTE | 2020-03-05 08:30 | MRI_ITS ---
STUDY: MRI BRAIN WITHOUT CONTRAST REASON FOR EXAM: Female, 79 years old. seizures TECHNIQUE: Standardized multiplanar fat and water weighted pulse sequences were obtained. COMPARISON: CT Brain Mar 04 2020 FINDINGS: There is mild cerebral atrophy with widening of the extra-axial spaces and ventricular dilatation. There are multiple white matter hyperintensities, distributed throughout the deep white matter tracts of the cerebral hemispheres, consistent with moderate chronic white matter ischemic changes. Normal bilateral basal ganglia. Normal thalami. There is no extra-axial fluid accumulation. Normal flow voids within the major intracranial circulation suggesting patency by spin echo criteria. Normal sella turcica, pituitary gland, infundibular stalk, optic chiasm and hypothalamus. Normal tectal plate and pineal gland. Normal midbrain, aixa and medulla. Normal cerebellum. Normal basal cisterns. MRI/Brain without Contrast IMPRESSION: No acute intracranial abnormality. Electronically Signed: Jenny Zepeda MD at 11:06 EDT Tel , Service support ,
[2020-03-05] MEDS: Pantoprazole Sodium 40 MG Tablet PO (08:48)
[2020-03-05] MEDS: Clopidogrel Bisulfate 75 MG Tablet PO (08:48)
[2020-03-05] MEDS: Losartan Potassium 100 MG Tablet PO (08:48)
[2020-03-05] MEDS: Enoxaparin 30 MG/0.3 ML Syringe SC (08:48)
[2020-03-05] MEDS: Carvedilol 25 MG Tablet PO ×2 (08:48→21:58)
[2020-03-05] MEDS: amLODIPine 5 MG Tablet PO (08:48)
[2020-03-05] MEDS: Aspirin 81 MG TAB.CHEW PO (08:48)
[2020-03-05] MEDS: predniSONE 5 MG Tablet 2.5 MG PO (08:49)
[2020-03-05] MEDS: 0.9% Saline Lock 10 ML Syringe IV ×2 (10:41→21:58)
--- NOTE | 2020-03-05 11:10 | CASEMGMT ---
SW met with patient, introduced self and role at [facility]. SW asked patient if her plan was to return to TCU at discharge and that is her plan. Plan: d/c back to [facility] TCU when medically ready. Kelli GALLEGOS
--- NOTE | 2020-03-05 13:25 | PN_ITS ---
Patient Problems: Active and Suspected Problems (Last Reviewed 02/20/20 @ 20:[address] Cesar Chandra MD) Seizure (Acute) Hypomagnesemia (Acute) Hyponatremia (Acute) Reason for Visit: seizure Subjective: Feels well. Tongue is sore. Vitals/I&O's: Vital Signs Temp Pulse Resp BP Pulse Ox 36.4 C L 84 18 150/67 H 95 03/05/20 08:42 03/05/20 08:42 03/05/20 08:42 03/05/20 08:42 03/05/20 08:42 Oxygen Flow Rate (L/min) 2 Oxygen Delivery Method Room Air Weight: 90.1 kg Body Mass Index (BMI) 37.5 Finger Stick Blood Glucose 135 Intake and Output for Last 24 Hours 03/03/20 03/04/20 03/05/20 23:59 23:59 23:59 Intake Total 586.67 / 586.67 2084 Output Total 175 / 175 Balance 585.67 / 585.67 1909 General: Alert, No apparent distress, Well developed, Well nourished HEENT: Atraumatic, Normocephalic, - - brusing on anterior tongue Neck: No Nodes, Thyroid Normal Size and Texture Lungs: Clear to auscultation, Normal air movement, No rhonchi, No wheeze Cardiovascular: Regular rate, Regular Rhythm, Normal S1, Normal S2, No murmurs Abdomen: Bowel Sounds Present, Soft, Non Tender, Non-Distended, No Hepato- splenomegaly Extremities: No edema, No Calf Tenderness Skin: No rashes, No breakdown Neurological: Cranial nerves II-XII grossly intact Psych/Mental Status: Normal Affect, Appropriate Microbiology Past 72 Hours 03/05/20 00:30 Stool Stool Occult Blood (MICHAEL) - Final 03/05/20 00:30 Stool Stool Lactoferrin - Final Laboratory Results 03/04/20 14:05: WBC 10.3, RBC 3.64 L, Hgb 10.8 L, Hct 34.2 L, MCV 94.0, MCH 29.7, MCHC 31.6 L, RDW Std Deviation 50.0 H, RDW Coeff of Blaine 14.5, Plt Count 261, MPV 9.4, Immature Gran % (Auto) 1.100 H, Neut % (Auto) 80.5 H, Lymph % ( Auto) 4.9 L, Garfield % (Auto) 11.2 H, Eos % (Auto) 1.5, Baso % (Auto) 0.8, Absolute Neuts (auto) 8.3 H, Absolute Lymphs (auto) 0.51 L, Nucleated RBC % 0, Platelet Estimate ADEQUATE, Hypochromasia 1+ 03/04/20 14:05: PT 13.0, INR 1.0, APTT 27.9 03/04/20 14:05: Sodium 131 L, Potassium 4.7, Chloride 99, Carbon Dioxide 25.0, Anion Gap 7, BUN 9, Creatinine 1.17 H, Estim Creat Clear Calc 29.42, Est GFR (MDRD) Af Amer 57 L, Est GFR (MDRD) Non-Af 47 L, BUN/Creatinine Ratio 7.7 L, Glucose 126 H, Calcium 7.7 L, Troponin I 0.023, Prolactin 98.1 03/04/20 14:05: Magnesium 0.9 L*, Total Bilirubin 0.40, Direct Bilirubin 0.06, AST 73 H, ALT 27, Alkaline Phosphatase 82, Total Protein 6.4, Albumin 2.9 L, Globulin 3.5 03/04/20 15:34: POC Glucose 145 H 03/04/20 16:31: Phosphorus 2.4 L 03/04/20 20:08: Magnesium 2.4 03/05/20 05:00: WBC 5.6, RBC 3.57 L, Hgb 10.5 L, Hct 34.2 L, MCV 95.8, MCH 29.4, MCHC 30.7 L, RDW Std Deviation 50.4 H, RDW Coeff of Blaine 14.4, Plt Count 234, MPV 10.0, Immature Gran % (Auto) 1.400 H, Neut % (Auto) 70.4 H, Lymph % (Auto) 11.2 L, Garfield % (Auto) 13.4 H, Eos % (Auto) 2.7, Baso % (Auto) 0.9, Absolute Neuts (auto) 4.0, Absolute Lymphs (auto) 0.63 L, Nucleated RBC % 0 03/05/20 05:00: Sodium 131 L, Potassium 3.8, Chloride 100, Carbon Dioxide 25.0, Anion Gap 6, BUN 7, Creatinine 0.86, Estim Creat Clear Calc 40.03, Est GFR (MDRD) Af Amer 82, Est GFR (MDRD) Non-Af 67, BUN/Creatinine Ratio 8.1 L, Glucose 85, Calcium 8.0 L Current Medications Acetaminophen (Tylenol) 650 mg PO Q6H PRN PRN PRN Reason: Pain Score 1-10/Temp > 100.7 F Albuterol Sulfate (Ventolin Aerosols) 2.5 mg INHALATION Q2H PRN PRN PRN Reason: SOB/Wheezing Amlodipine Besylate (Norvasc) 5 mg PO DAILY [facility] Last Admin: 03/05/20 08:48 Dose: 5 mg Documented by: Aspirin (Aspirin, Baby) 81 mg PO DAILY@0800 [facility] Last Admin: 03/05/20 08:48 Dose: 81 mg Documented by: Calcium Carbonate (Tums) 1,000 mg PO BIDCM [facility] Last Admin: 03/05/20 09:30 Dose: Not Given Documented by: Carvedilol (Coreg) 25 mg PO BID [facility] Last Admin: 03/05/20 08:48 Dose: 25 mg Documented by: Cholecalciferol (Vitamin D (25mcg)) 2,000 unit PO DAILY [facility] Last Admin: 03/05/20 08:48 Dose: 2,000 unit Documented by: Clopidogrel Bisulfate (Plavix) 75 mg PO DAILY [facility] Last Admin: 03/05/20 08:48 Dose: 75 mg Documented by: Enoxaparin Sodium (Lovenox) 30 mg SC DAILY [facility] Last Admin: 03/05/20 08:48 Dose: 30 mg Documented by: Levetiracetam 500 mg/ Sodium (Chloride) 105 mls @ 400 mls/hr IV Q12 [facility] Last Infusion: 03/05/20 11:00 Dose: Infused Documented by: Labetalol HCl (Trandate) 20 mg IV X1 PRN PRN Reason: Blood Pressure Lactobacillus Acidophilus (Acidophilus) 1 tablet PO TID [facility] Last Admin: 03/05/20 06:30 Dose: 1 tablet Documented by: Lorazepam (Ativan) 2 mg IV Q4H PRN PRN PRN Reason: SEIZURES Losartan Potassium (Cozaar) 100 mg PO DAILY [facility] Last Admin: 03/05/20 08:48 Dose: 100 mg Documented by: Nitroglycerin (Nitrostat) 0.4 mg SUBLINGUAL Q5M PRN PRN Reason: CARDIAC/CHEST PAIN Oxycodone HCl (Oxyir) 5 mg PO Q4H PRN PRN PRN Reason: Pain Score 4-10/10 Pantoprazole Sodium (Protonix) 40 mg PO DAILY [facility] Last Admin: 03/05/20 08:48 Dose: 40 mg Documented by: Pravastatin Sodium (Pravachol) 20 mg PO QHS [facility] Last Admin: 03/04/20 21:10 Dose: 20 mg Documented by: [facility] () [facility] Last Admin: 03/05/20 08:49 Dose: 2.5 mg Documented by: Prochlorperazine Edisylate (Compazine Iv) 5 mg IV Q4H PRN PRN PRN Reason: Breakthrough Nausea/Vomiting Senna/Docusate Sodium (Senokot-S, Shae-Colace) 2 tablet PO BID PRN PRN PRN Reason: Constipation Sodium Chloride () 10 - 40 ml IV UD PRN PRN Reason: SALINE FLUSH Last Admin: 03/05/20 10:41 Dose: 10 ml Documented by: Medical Necessity - Tobacco Use Smoking Status: Former smoker Tobacco Use: Cigarettes Assessment/Plan All Active Problems (Last Reviewed 02/20/20 @ 20:[address] Cesar Chandra MD) Generalized weakness (Acute) Seizure (Acute) Hypomagnesemia (Acute) Hyponatremia (Acute) Dehydration (Resolved) 1. new onset seizures * may have been exacerbated by ciprofloxacin and metronidazole * on levetiracetam * MRI negative * neurology evaluation pending 2. hypomagnesemia * resolved with replacement * 2/2 diarrhea 3. VTE prophylaxis: enoxaparin Inpatient E&M: 85618 [facility] Hosp L2
[2020-03-05] MEDS: Pravastatin 20 MG Tablet PO (21:58)
--- NOTE | 2020-03-05 23:39 | PCM.PN.BLA ---
Progress Note Discussed with neurology. Ok to change Keppra IV to PO if patient is tolerating p.o. Patient is already on p.o. medications so will change Keppra IV to p.o. STROKE Vital Signs/Narrative: Vital Signs Temp Pulse Resp BP Pulse Ox 03/05/20 21:40 98.7 F 80 18 149/55 H 96
[2020-03-06 03:00] VITALS: PULSE 74
[2020-03-06 03:40] VITALS: BP 144/66; PULSE 77; RESP 16; TEMP 36.4; O2SAT 97
[2020-03-06 07:00] VITALS: PULSE 72
[2020-03-06 07:45] VITALS: O2SAT 95
[2020-03-06 09:08] VITALS: BP 137/44; PULSE 77; RESP 18; TEMP 36.5; O2SAT 97
[2020-03-06] MEDS: Aspirin 81 MG TAB.CHEW PO (09:12)
[2020-03-06] MEDS: predniSONE 5 MG Tablet 2.5 MG PO (09:13)
[2020-03-06] MEDS: Carvedilol 25 MG Tablet PO (09:14)
[2020-03-06] MEDS: Pantoprazole Sodium 40 MG Tablet PO (09:16)
[2020-03-06] MEDS: Losartan Potassium 100 MG Tablet PO (09:16)
[2020-03-06] MEDS: Clopidogrel Bisulfate 75 MG Tablet PO (09:16)
[2020-03-06] MEDS: Enoxaparin 30 MG/0.3 ML Syringe SC (09:17)
[2020-03-06] MEDS: amLODIPine 5 MG Tablet PO (09:17)
[2020-03-06] MEDS: levETIRAcetam 500 MG Tablet PO (09:33)
--- NOTE | 2020-03-06 11:11 | TREXTCAR_ITS ---
- Diet 03/04/20 18:01 Diet: Cardiac - Heart Healthy Is pt able to select menu?: No Diet Comments: Until she is fully awake - Routine Orders/Code Status Routine Lab Work: [facility] Code Status: Full Code - Wound(s) Tongue/cheek Wound Type: Bite - Therapies Physical Therapy: Eval and Treat Occupational Therapy: Eval and Treat - Allergies/Procedures Done in Hospital Allergies/Adverse Reactions: Allergies gabapentin Allergy (Verified 02/20/20 18:50) Unknown nortriptyline Allergy (Verified 02/20/20 18:50) Unknown rofecoxib [From Vioxx] Allergy (Verified 02/20/20 18:50) Unknown tacrolimus Allergy (Verified 02/20/20 18:50) Unknown morphine Adverse Reaction (Verified 02/20/20 18:50) Nausea Procedures: Electroencephalogram - Type of Care/Length of Stay Estimated LOS: Convalescent Care Less Than 30 days Type of Care Needed: Skilled Rehab Potential: Good Prognosis: Good - Additional Orders/Day of Discharge Additional Orders: For the next 6 months: No driving, no operating heavy machinery, no baths. Day of Discharge: 03/06/20 - Follow Up Care Primary Care Physician: Nicolas Villegas MD [Primary Care Provider] - Within 2 Weeks Please Follow Up With: Nagi Beckford MD - neurology When: 4-6 weeks
--- NOTE | 2020-03-06 11:16 | PCM.DC.SUM ---
Discharge Date and Diagnosis - Problem List Patient Problems: Active and Suspected Problems (Last Reviewed 02/20/20 @ 20:[address] Cesar Chandra MD) Seizure (Acute) Hypomagnesemia (Acute) Hyponatremia (Acute) Date of Admission: 03/04/20 Date of Discharge: 03/06/20 - Primary Discharge Diagnosis Acute Problems: Active Problems (Last Reviewed 02/20/20 @ 20:[address] Cesar Chandra MD) Seizure (Acute) Hypomagnesemia (Acute) Hyponatremia (Acute) - Secondary Discharge Diagnosis Chronic Problems: Chronic Problems (Last Reviewed 02/20/20 @ 20:[address] Cesar Chandra MD) Cystitis (Chronic) Polymyalgia rheumatica (Chronic) Debility (Chronic) Fall (Chronic) Pancolitis (Chronic) Diarrhea (Chronic) Ileus (Chronic) Lymphedema (Chronic) Hypertension (Chronic) Chronic kidney disease, stage 2 (mild) (Chronic) GERD (gastroesophageal reflux disease) (Chronic) Coronary artery disease (Chronic) BMI 36.0-36.9,adult (Chronic) Pulmonary hypertension (Chronic) RVSP 55 COPD (chronic obstructive pulmonary disease) (Chronic) AILYN (obstructive sleep apnea) (Chronic) AHI 115 and titrated to nasal CPAP 14 cm of water Atherosclerotic heart disease of [place] coronary artery without angina pectoris (Chronic) Chronic renal insufficiency, stage II (mild) (Chronic) Hyperglycemia, unspecified (Chronic) Carotid stenosis (Chronic) Renal artery stenosis (Chronic) HLD (hyperlipidemia) (Chronic) Benign essential hypertension (Chronic) Hospital Course and Treatment Imaging Results: Clinical Impression(s) from Imaging Studies Brain CT 03/04/20 13:58 IMPRESSION: 1. No acute intracranial hemorrhage or mass effect. 2. Central parenchymal volume loss. White matter changes that are nonspecific but most commonly associated with chronic small vessel ischemic disease. N.B. : The above information has been verbally conveyed by Devaughn Cortes MD (Brooks) to Rene Perez MD, on 03/04/2020 14:13:37 (ET). Electronically Signed: Devaughn Cortes MD (Brooks) at 14:10 EDT , Service support , Chest X-Ray 03/04/20 15:15 IMPRESSION: Stable, nonacute portable x-ray examination of the chest. Electronically Signed: Devaughn Cortes MD (Brooks) at 15:31 EDT , Service support , Brain MRI 03/05/20 08:30 IMPRESSION: No acute intracranial abnormality. Electronically Signed: Jenny Zepeda MD at 11:06 EDT Tel , Service support , SOC tele-neurology Operations: None Procedures: None Summary of Care Provided: The patient is a 79 year old F presents with seizures. Patient was found to have seizure-like activity in the transitional care unit. Rep response was called and patient was sent to the emergency room. Upon return to the floor patient had another seizure. Patient was started on levetiracetam him during hospitalization. Patient underwent an MRI and EEG which were unremarkable. Patient was evaluated by SOC telemetry neurology recommended continue with the levetiracetam and to follow-up with a neurologist as outpatient. Is felt that patient may have had seizures due to lowering of seizure threshold due to ciprofloxacin and metronidazole. Those antibiotics have been discontinued. Patient was on those antibiotics for a colitis. Patient advised on restrictions to activity, including driving, swimming, bathing and operating heavy machinery. [] Patient Problems: Active and Suspected Problems (Last Reviewed 02/20/20 @ 20:[address] Cesar Chandra MD) Seizure (Acute) Hypomagnesemia (Acute) Hyponatremia (Acute) - Physical Exam Vitals/I&O's: Vital Signs Temp Pulse Resp BP Pulse Ox 36.5 C L 77 18 137/44 H 97 03/06/20 09:08 03/06/20 09:08 03/06/20 09:08 03/06/20 09:08 03/06/20 09:08 Oxygen Flow Rate (L/min) 2 Oxygen Delivery Method Room Air Weight: 90.1 kg Body Mass Index (BMI) 37.5 Finger Stick Blood Glucose 135 Intake and Output for Last 24 Hours 09/27/20 09/28/20 09/29/20 23:59 23:59 23:59 Intake Total 586.67 / 586.67 2670 / 2770 100 / 100 Output Total 175 / 175 Balance 585.67 / 585.67 2495 / 2595 100 / 100 General: Alert, No apparent distress HEENT: Atraumatic, Normocephalic Psych/Mental Status: Normal Affect, Appropriate Microbiology Past 72 Hours 03/05/20 00:30 Stool Stool Occult Blood (MICHAEL) - Final 03/05/20 00:30 Stool Stool Lactoferrin - Final Current Medications Acetaminophen (Tylenol) 650 mg PO Q6H PRN PRN PRN Reason: Pain Score 1-10/Temp > 100.7 F Albuterol Sulfate (Ventolin Aerosols) 2.5 mg INHALATION Q2H PRN PRN PRN Reason: SOB/Wheezing Amlodipine Besylate (Norvasc) 5 mg PO DAILY [facility] Last Admin: 03/06/20 09:17 Dose: 5 mg Documented by: Aspirin (Aspirin, Baby) 81 mg PO DAILY@0800 [facility] Last Admin: 03/06/20 09:12 Dose: 81 mg Documented by: [facility]) [facility] Last Admin: 03/06/20 09:21 Dose: Not Given Documented by: Carvedilol (Coreg) 25 mg PO BID [facility] Last Admin: 03/06/20 09:14 Dose: 25 mg Documented by: Cholecalciferol (Vitamin D (25mcg)) 2,000 unit PO DAILY [facility] Last Admin: 03/06/20 09:16 Dose: 2,000 unit Documented by: Clopidogrel Bisulfate (Plavix) 75 mg PO DAILY [facility] Last Admin: 03/06/20 09:16 Dose: 75 mg Documented by: Enoxaparin Sodium (Lovenox) 30 mg SC DAILY [facility] Last Admin: 03/06/20 09:17 Dose: 30 mg Documented by: Labetalol HCl (Trandate) 20 mg IV X1 PRN PRN Reason: Blood Pressure Lactobacillus Acidophilus (Acidophilus) 1 tablet PO TID [facility] Last Admin: 03/06/20 03:56 Dose: 1 tablet Documented by: Levetiracetam (Keppra Tablet) 500 mg PO BID [facility] Last Admin: 03/06/20 09:33 Dose: 500 mg Documented by: Lorazepam (Ativan) 2 mg IV Q4H PRN PRN PRN Reason: SEIZURES Losartan Potassium (Cozaar) 100 mg PO DAILY [facility] Last Admin: 03/06/20 09:16 Dose: 100 mg Documented by: Nitroglycerin (Nitrostat) 0.4 mg SUBLINGUAL Q5M PRN PRN Reason: CARDIAC/CHEST PAIN Oxycodone HCl (Oxyir) 5 mg PO Q4H PRN PRN PRN Reason: Pain Score 4-10/10 Pantoprazole Sodium (Protonix) 40 mg PO DAILY [facility] Last Admin: 03/06/20 09:16 Dose: 40 mg Documented by: Pravastatin Sodium (Pravachol) 20 mg PO QHS [facility] Last Admin: 03/05/20 21:58 Dose: 20 mg Documented by: [facility] () [facility] Last Admin: 03/06/20 09:13 Dose: 2.5 mg Documented by: Prochlorperazine Edisylate (Compazine Iv) 5 mg IV Q4H PRN PRN PRN Reason: Breakthrough Nausea/Vomiting Senna/Docusate Sodium (Senokot-S, Shae-Colace) 2 tablet PO BID PRN PRN PRN Reason: Constipation Sodium Chloride () 10 - 40 ml IV UD PRN PRN Reason: SALINE FLUSH Last Admin: 03/05/20 21:58 Dose: 20 ml Documented by: Sodium Chloride () 10 - 40 ml IV UD PRN PRN Reason: SALINE FLUSH Discharge Diet: No Restrictions Home Medications: Medications to take at Discharge Pantoprazole Sodium [Protonix] 40 mg PO DAILY 12/15/14 Acetaminophen [Tylenol Arthritis] 650 mg PO Q4H PRN PRN 11/04/18 Carvedilol 25 mg PO BID 11/04/18 Chlorthalidone 12.5 mg PO DAILY 11/04/18 Cholecalciferol (VIT D3) [Vitamin D3] 2,000 unit PO DAILY 11/04/18 Coenzyme [id number]-h-Nqakdiwop-Wuy E [Co Q-10 with l-Carnitine Sftgl] 1 cap PO DAILY 11/04/18 Leflunomide 20 mg PO DAILY 11/04/18 Pravastatin Sodium 20 mg PO QHS 11/04/18 Prednisone 5 mg PO DAILY 11/04/18 Albuterol IH (ProAir) [Proair Hfa] 1 - 2 puff INHALATION Q6H PRN PRN #1 inhaler 11/09/18 Aspirin [Aspirin, Baby] 81 mg PO DAILY@0800 tab.chew 11/09/18 amlodipine 2.5 mg tablet 2.5 mg PO DAILY 07/04/19 clopidogrel 75 mg tablet 75 mg PO DAILY 07/04/19 losartan 100 mg tablet 100 mg PO DAILY 07/04/19 potassium chloride 10 mEq tablet,extended release 20 meq PO BID tab 07/04/19 Ondansetron [Zofran Odt] 4 mg PO Q8H PRN PRN #10 tab 01/22/20 Calcium Carbonate [Tums] 1,000 mg PO BIDCM 02/20/20 levETIRAcetam tablet [Keppra tablet] 500 mg PO BID tab 03/06/20 Primary Care Physician: Nicolas Villegas MD [Primary Care Provider] - Within 2 Weeks Please Follow Up With: Nagi Beckford MD - neurology When: 4-6 weeks Disposition: Shelter facility Minutes spent on discharge:: 35 Patient Condition:: Fair Medical Necessity - Tobacco Use Smoking Status: Former smoker Tobacco Use: Cigarettes Meaningful Use Info Meaningful Use Diagnoses (Choose all that apply): None applicable Inpatient E&M: 52125 Disch Hosp
--- NOTE | 2020-03-06 11:47 | PHA.DC.MR ---
Pharmacy Service has performed discharge medication reconciliation for this patient upon transfer to TCU. The patient's discharge medication list was reviewed for discrepancies and discrepancies were resolved. Home Medications Pantoprazole Sodium [Protonix] 40 mg PO DAILY 12/15/14 Acetaminophen [Tylenol Arthritis] 650 mg PO Q4H PRN PRN 11/04/18 Carvedilol 25 mg PO BID 11/04/18 Chlorthalidone 12.5 mg PO DAILY 11/04/18 Cholecalciferol (VIT D3) [Vitamin D3] 2,000 unit PO DAILY 11/04/18 Coenzyme [id number]-Zpgpzkerx-Ror E [Co Q-10 with l-Carnitine Sftgl] 1 cap PO DAILY 11/04/18 Leflunomide 20 mg PO DAILY 11/04/18 Pravastatin Sodium 20 mg PO QHS 11/04/18 Prednisone 5 mg PO DAILY 11/04/18 Albuterol IH (ProAir) [Proair Hfa] 1 - 2 puff INHALATION Q6H PRN PRN #1 inhaler 11/09/18 Aspirin [Aspirin, Baby] 81 mg PO DAILY@0800 tab.chew 11/09/18 amlodipine 2.5 mg tablet 2.5 mg PO DAILY 07/04/19 clopidogrel 75 mg tablet 75 mg PO DAILY 07/04/19 losartan 100 mg tablet 100 mg PO DAILY 07/04/19 potassium chloride 10 mEq tablet,extended release 20 meq PO BID tab 07/04/19 Ondansetron [Zofran Odt] 4 mg PO Q8H PRN PRN #10 tab 01/22/20 Calcium Carbonate [Tums] 1,000 mg PO BIDCM 02/20/20 levETIRAcetam tablet [Keppra tablet] 500 mg PO BID tab 03/06/20
--- NOTE | 2020-03-06 11:52 | CASEMGMT ---
Patient is ready for discharge back to TCU. TUNDE called patient's daughter, Milli and let her know. She would like to see patient before patient goes back to TCU. She said she will call TUNDE back in a little bit and let SW know when and if she can come in to see patient. Kelli BROWNLEE MSW
--- NOTE | 2020-03-06 14:47 | CASEMGMT ---
SW's daughter did call SW back and said she would be in around 2 or so to visit patient. SW notified RN. Plan: [facility] TCU after daughter visits. Kelli BROWNLEE MSW
[2020-03-06 15:08] VITALS: BP 114/44; PULSE 73; RESP 18; TEMP 36.9; O2SAT 98
== END 2020-03-06 17:41 | disposition skilled nursing facility (03) | DRG 101 ==
LOC: ED 14:10 → PCU 15:54
PROVIDERS: Admitting Provider Internal Medicine; Emergency Provider Emergency Medicine; PCP Family Medicine
DX: R56.9 Unspecified convulsions (principal); E87.1 Hypo-osmolality and hyponatremia; N39.0 Urinary tract infection, site not specified; K57.32 Diverticulitis of large intestine without perforation or abscess without bleeding; T36.8X5A Adverse effect of other systemic antibiotics, initial encounter; T37.8X5A Adverse effect of other specified systemic anti-infectives and antiparasitics, initial encounter; E83.42 Hypomagnesemia; Z79.2 Long term (current) use of antibiotics; N18.2 Chronic kidney disease, stage 2 (mild); I12.9 Hypertensive chronic kidney disease with stage 1 through stage 4 chronic kidney disease, or unspecified chronic kidney disease; K21.9 Gastro-esophageal reflux disease without esophagitis; I25.10 Atherosclerotic heart disease of native coronary artery without angina pectoris; J44.9 Chronic obstructive pulmonary disease, unspecified; I27.20 Pulmonary hypertension, unspecified; E78.5 Hyperlipidemia, unspecified; Z79.899 Other long term (current) drug therapy; Z79.51 Long term (current) use of inhaled steroids; Z87.891 Personal history of nicotine dependence; E86.1 Hypovolemia; M35.3 Polymyalgia rheumatica; I73.9 Peripheral vascular disease, unspecified; I65.29 Occlusion and stenosis of unspecified carotid artery; R53.81 Other malaise
CPT/HCPCS: 36415; 70450; 70551; 71045; 80048; 80076; 82274; 82962; 83630; 83735; 84100; 84146; 84484; 85025; 85610; 85730; 93005; 95819; 97110; 97162; 97166; 97530; 99251; 99285; J7030; J7040; A4216; G0463

== ENCOUNTER 2020-03-06 17:20 | Inpatient (IN) | payer MEDICARE, OTHER, SELFPAY ==
[2020-03-04 16:44] VITALS: BMI 37.5
[2020-03-06 19:56] VITALS: PULSE 77; O2SAT 98
[2020-03-06] MEDS: Pravastatin 20 MG Tablet PO (20:08)
--- NOTE | 2020-03-06 20:12 | HP.PCM_ITS ---
Problem List (1) Polymyalgia rheumatica Status: Chronic (2) Debility Status: Acute (3) Pancolitis Status: Chronic (4) Diarrhea Status: Chronic (5) Lymphedema Status: Chronic (6) Hypertension Status: Chronic (7) GERD (gastroesophageal reflux disease) Status: Chronic (8) Coronary artery disease Status: Chronic (9) Seizure Status: Acute (10) Hypomagnesemia Status: Acute (11) Hyponatremia Status: Acute (12) Pulmonary hypertension Status: Chronic Comment: RVSP 55 (13) COPD (chronic obstructive pulmonary disease) Status: Chronic Qualifiers: (14) AILYN (obstructive sleep apnea) Status: Chronic Comment: AHI 115 and titrated to nasal CPAP 14 cm of water (15) Renal artery stenosis Status: Chronic (16) HLD (hyperlipidemia) Status: Chronic Qualifiers: History of Present Illness Date of Admission: 03/06/20 Chief Complaint: Here for rehabilitation, strengthening, prior to discharge home alone. 03/04/20 The patient is a 79 year old Female with below past medical history TCU resident presented to [facility] Emergency Department with possible stroke. 03/04/20 CT brain negative. 03/04/20 Chest X-ray stable. Rapid Response Team called, resident unresponsive, shaking, bleeding from the mouth. Shaking lasted 3 to 5 minutes, confusion afterwards. on Cipro for urinary tract infection. IV placed, more likely seizure, not stroke. 03/04/20 Admit to Hospital. Seizure secondary to hypomagnesemia, magnesium 0.9. Keppra load, Ativan as needed for seizure. Replete Magnesium. Stop Cipro, Flagyl, due to lowering of seizure threshold. Hold chlorthalidone for hyponatremia. 03/05/20 MRI brain negative. 03/05/20 Consult Neurology for new onset seizure. Hypomagnesemia resolved with repletion. 03/05/20 EEG normal, no evidence of seizure. Needs neurology follow-up, stay on antiseizure medications for now. 03/06/20 Admit to TCU with debility, here for rehabilitation, strengthening, prior to discharge home alone. Past Medical History Past Medical History (Chronic Problems): Chronic Problems (Last Reviewed 02/20/20 @ 20:[address] Cesar Chandra MD) Cystitis (Chronic) Polymyalgia rheumatica (Chronic) Fall (Chronic) Pancolitis (Chronic) Diarrhea (Chronic) Ileus (Chronic) Lymphedema (Chronic) Hypertension (Chronic) Chronic kidney disease, stage 2 (mild) (Chronic) GERD (gastroesophageal reflux disease) (Chronic) Coronary artery disease (Chronic) BMI 36.0-36.9,adult (Chronic) Pulmonary hypertension (Chronic) RVSP 55 COPD (chronic obstructive pulmonary disease) (Chronic) AILYN (obstructive sleep apnea) (Chronic) AHI 115 and titrated to nasal CPAP 14 cm of water Atherosclerotic heart disease of [place] coronary artery without angina pectoris (Chronic) Chronic renal insufficiency, stage II (mild) (Chronic) Hyperglycemia, unspecified (Chronic) Carotid stenosis (Chronic) Renal artery stenosis (Chronic) HLD (hyperlipidemia) (Chronic) Benign essential hypertension (Chronic) Medical History: Medical History (Last Reviewed 02/20/20 @ 20:[address] Cesar Chandra MD) Atherosclerotic heart disease of [place] coronary artery without angina pectoris (Chronic) I25.10 Acute respiratory failure with hypoxia (Inactive) J96.01 Right lower lobe pneumonia (Inactive) J18.1 Sinus tachycardia by electrocardiogram (Inactive) R00.0 Chronic renal insufficiency, stage II (mild) (Chronic) N18.2 Hyperglycemia, unspecified (Chronic) R73.9 Carotid stenosis (Chronic) I65.29 Renal artery stenosis (Chronic) I70.1 HLD (hyperlipidemia) (Chronic) E78.5 Benign essential hypertension (Chronic) I10 Acute kidney insufficiency N28.9 NSTEMI (non-ST elevated myocardial infarction) I21.4 Barretts esophagus K22.70 Cerebrovascular disease I67.9 Former smoker, stopped smoking many years ago Z87.891 History of bleeding peptic ulcer Z87.11 Osteoarthritis Dehydration (Resolved) E86.0 Pneumonia J18.9 Severe sepsis A41.9, R65.20 Allergies gabapentin Allergy (Verified 02/20/20 18:50) Unknown nortriptyline Allergy (Verified 02/20/20 18:50) Unknown rofecoxib [From Vioxx] Allergy (Verified 02/20/20 18:50) Unknown tacrolimus Allergy (Verified 02/20/20 18:50) Unknown ciprofloxacin Adverse Reaction (Severe, Verified 03/06/20 11:23) seizure seizure metronidazole Adverse Reaction (Severe, Verified 03/06/20 11:23) seizure morphine Adverse Reaction (Verified 02/20/20 18:50) Nausea Home Medications: Ambulatory Orders Medication Instructions Recorded Pantoprazole Sodium [Protonix] 40 mg PO DAILY 12/15/14 Acetaminophen [Tylenol Arthritis] 650 mg PO Q4H PRN PRN 11/04/18 Carvedilol 25 mg PO BID 11/04/18 Chlorthalidone 12.5 mg PO DAILY 11/04/18 Cholecalciferol (VIT D3) [Vitamin 2,000 unit PO DAILY 11/04/18 D3] Coenzyme [id number] [Co 1 cap PO DAILY 11/04/18 Q-10 with l-Carnitine Sftgl] Leflunomide 20 mg PO DAILY 11/04/18 Pravastatin Sodium 20 mg PO QHS 11/04/18 Prednisone 5 mg PO DAILY 11/04/18 Albuterol IH (ProAir) [Proair Hfa] 1 - 2 puff INHALATION Q6H PRN PRN 11/09/18 #1 inhaler Aspirin [Aspirin, Baby] 81 mg PO DAILY@0800 tab.chew 11/09/18 amlodipine 2.5 mg tablet 2.5 mg PO DAILY 07/04/19 clopidogrel 75 mg tablet 75 mg PO DAILY 07/04/19 losartan 100 mg tablet 100 mg PO DAILY 07/04/19 potassium chloride 10 mEq 20 meq PO BID tab 07/04/19 tablet,extended release Ondansetron [Zofran Odt] 4 mg PO Q8H PRN PRN #10 tab 01/22/20 Calcium Carbonate [Tums] 1,000 mg PO BIDCM 02/20/20 levETIRAcetam tablet [Keppra 500 mg PO BID tab 03/06/20 tablet] Surgical History: Surgical History (Last Reviewed 02/20/20 @ 20:[address] Cesar Chandra MD) H/O carotid endarterectomy Z98.890 History of cholecystectomy Z90.49 History of hysterectomy Z90.710 History of left hip replacement Z96.642 History of total right knee replacement Z96.651 Surgical History: appendectomy, cholecystectomy, hysterectomy, total hip arthroplasty - Left., total knee arthroplasty - Right., - - Exploratory laparotomy, carotid endarterectomy. Psychiatric History: No pertinent psych hx [employer] History: No pertinent [employer] history Lives: Alone Smoking Status: Former smoker Tobacco Use: Non-smoker Alcohol: None Drugs: None - *Family History Paternal Family History: Family History (Last Reviewed 02/20/20 @ 20:[address] Cesar Chandra MD) Mother Cancer Father Emphysema of lung Aunt Cancer Grandfather Vascular disease Grandmother Diabetes Brother Cancer History Items: No pertinent history Maternal Family History: Family History (Last Reviewed 02/20/20 @ 20:[address] Cesar Chandra MD) Mother Cancer Father Emphysema of lung Aunt Cancer Grandfather Vascular disease Grandmother Diabetes Brother Cancer History Items: No pertinent history Review of Systems Constitutional: Denies: Chills, Fever, Weight Change HEENT: Denies: Head Aches, Sinus Congestion, Sinus Drainage Cardiovascular: Denies: Chest Pain, Palpitations Respiratory: Denies: Cough, Shortness of breath at rest, Sputum production Gastrointestinal: Denies: Abdominal Pain, Nausea, Vomiting Genitourinary: Denies: Dysuria Musculoskeletal: Denies: Joint Pain, Joint Tenderness Skin: Denies: Rash, Wounds Neurological: Denies: Numbness, Tingling, Focal weakness Psychiatric: Denies: Anxiety, Depression, Homicidal Ideations, Suicidal Ideations Hematologic/ Lymphatic: Denies: Easy Bruising, Easy Bleeding VTE Information - Inpt Only VTE Present on Admission: No VTE Mechan Device Prophylaxis: Knee High KOJO Hose VTE Pharm Prophylaxis ordered?: No Reason prophylaxis not ordered:: Medical Contraindication - Physical Exam Vitals/I&O's: Weight: 84.958 kg Body Mass Index (BMI) 37.5 Finger Stick Blood Glucose 135 General: Alert, Oriented x3, Cooperative HEENT: Atraumatic, PERRLA, EOMI, Normocephalic Neck: Supple, No JVD, Negative Carotid Bruits Lungs: Clear to auscultation, Normal air movement Cardiovascular: Regular rate, No murmurs Abdomen: Bowel Sounds Present, Soft, Non Tender Extremities: No edema, Capillary Refill Less than 3 Seconds Skin: No rashes, No breakdown Musculoskeletal: No Tenderness to Palpation of Joints or Extremities Neurological: Cranial nerves II-XII grossly intact Psych/Mental Status: Normal Affect, Appropriate Current Medications Acetaminophen (Tylenol Liquid) 650 mg PO Q4H PRN PRN PRN Reason: Pain Score 1-10/10 Albuterol Sulfate (Ventolin Hfa (Sp)) 2 puff INHALATION Q6H PRN PRN PRN Reason: sob/wheezing Amlodipine Besylate (Norvasc) 2.5 mg PO DAILY [facility] Aspirin (Aspirin, Baby) 81 mg PO DAILY@0800 [facility] Calcium Carbonate (Tums) 1,000 mg PO BIDCM [facility] Carvedilol (Coreg) 25 mg PO BID [facility] Chlorthalidone (Hygroton) 12.5 mg PO DAILY [facility] Cholecalciferol (Vitamin D (25mcg)) [facility] Clopidogrel Bisulfate (Plavix) 75 mg PO DAILY [facility] Leflunomide (Leflunomide) 20 mg PO DAILY [facility] Levetiracetam (Keppra Tablet) 500 mg PO BID [facility] Losartan Potassium (Cozaar) 100 mg PO DAILY [facility] Ondansetron HCl (Zofran Odt) 4 mg PO Q8H PRN PRN PRN Reason: NAUSEA Pantoprazole Sodium (Protonix) 40 mg PO DAILY [facility] Potassium Chloride (K-Dur) 20 meq PO BIDCM [facility] Pravastatin Sodium (Pravachol) 20 mg PO QHS [facility] Last Admin: 03/06/20 20:08 Dose: 20 mg Documented by: Prednisone () 5 mg PO DAILY@0800 [facility] Tuberculin PPD (Tubersol, Aplisol, Ppd) 5 tu ID X1 ONE Stop: 03/07/20 10:01 Tuberculin PPD (Tubersol, Aplisol, Ppd) 5 tu ID X1 ONE Stop: 03/14/20 10:01 Assessment/Plan All Active Problems (Last Reviewed 02/20/20 @ 20:[address] Cesar Chandra MD) Generalized weakness (Acute) Debility (Acute) Seizure (Acute) Hypomagnesemia (Acute) Hyponatremia (Acute) Dehydration (Resolved) 79 year old female with below past medical history hospitalized for acute seizure secondary to hypomagnesemia, complicated by hyponatremia, admitted to TCU with debility, here for rehabilitation, strengthening, prior to discharge home alone. * Debility - PT/OT. * Pain - Tylenol 1000MG Q6H PRN pain (1-10). * Bowel - order X-ray of abdomen. * Adult immunization - Administer Prevnar 13, Pneumovax 23, Fluzone as appropriate. * DVT prophylaxis - Hold, anemic, already on dual antiplatelet therapy. * COPD - Ventolin MDI 2 puffs Q6H PRN. * Hypertension - Losartan 100MG daily, Amlodipine 2.5MG daily. * Coronary Artery Disease - Coreg 25MG BID, Losartan 100MG daily, Plavix 75MG daily, Aspirin 81MG daily. * Calcium deficiency - TUMS 1000MG BID. * Vitamin D deficiency - D3 2000IU daily. * Nutrition - Ensure Enlive 120ML 4x/day. * PMR - Leucovorin 20MG daily, Prednisone 5MG daily. * Seizure - Keppra 500Mg BID, outpatient neurology follow up, most likely will not need antiseizure medication ferry terminal agent. * Nausea - Zofran 4MG Q8H PRN. * GERD - Pantoprazole 40MG daily. * Hypokalemia - KCL ER 20MEQ BID. * Hyperlipidemia - Pravastatin 20MG QHS.
[2020-03-06 20:19] VITALS: BMI 35.4
[2020-03-06 20:20] VITALS: BMI 35.4
--- NOTE | 2020-03-06 20:45 | RAD_ITS ---
STUDY: X-RAY - ABDOMEN/PELVIS REASON FOR EXAM: Female, 79 years old. Diarrhea for weeks. TECHNIQUE: Single AP view of the abdomen / pelvis. COMPARISON: None. FINDINGS: Normal visualized lung bases. There is an unremarkable bowel gas pattern. There is no demonstrated free abdominal air. The visualized liver, spleen and kidneys are grossly normal in size and morphology. Normal soft tissue structures. There are diffuse degenerative changes of the visualized lumbar spine. There is moderate levoconvex scoliosis. There is a left hip arthroplasty. RAD/Abdomen Single View IMPRESSION: No definite acute or significant abnormality seen. Electronically Signed: Michael Eden MD at 21:18 EDT , Service support ,
[2020-03-06 23:47] VITALS: BP 124/73; PULSE 75; RESP 18; TEMP 36.9; O2SAT 98
[2020-03-07 05:44] LABS: Absolute Lymphocyte Count 0.71 X10^3/uL (0.83-4.51); Absolute Neutrophil Count 3.8 X10^3/uL (2.0-7.7); Basophil# 0.05 X10^3/uL; Basophil% 0.9 % (0-1); Eosinophil# 0.12 X10^3/uL; Eosinophils% 2.1 % (0-5); Hematocrit 30.6 % (37-47); Hemoglobin 9.2 g/dL (12.0-15.0); Lymphocyte # 0.71 X10^3/ul (4.0); Lymphocyte % 12.6 % (19-41); Mean Corp Hgb Conc 30.1 g/dL (32-36); Mean Corpuscular Hgb 29.3 pg (27.0-32.0); Mean Corpuscular Volume 97.5 fL (81-99); Mean Platelet Vol. 9.7 fl (6.2-12.0); Monocyte# 0.85 X10^3/uL; Monocyte% 15.1 % (0-10); NRBC Flagged by Analyzer 0 % (0-5); Neutrophil # 3.82 X10^3/uL (2.7-7.7); Neutrophil % 67.9 % (47-70); Platelet Count 212 K/mm3 (150-450); RBC Distribution Width CV 14.6 % (11.6-14.6); RBC Distribution Width SD 51.5 fl (35.1-43.9); Red Blood Count 3.14 M/mm3 (4.2-5.4); White Blood Count 5.6 K/mm3 (4.4-11.0)
[2020-03-07 05:58] LABS: Anion Gap 3 (5-15); BUN 17 mg/dL (7-18); BUN/Creat Ratio 18.3 RATIO (10-20); Calcium,Total 7.5 mg/dL (8.5-10.1); Chloride 103 mmol/L (98-107); Creatinine, Serum 0.93 mg/dL (0.55-1.02); EST Glomerular Filtration Rate 62 mL/min (>60); Est Glom Filt Rate - Afr Amer 75 mL/min (>60); Estimated Creatinine Clearance 37.01 ml/min; Glucose 86 mg/dL (74-106); Magnesium 1.7 mg/dL (1.6-2.6); Potassium 3.3 mmol/L (3.5-5.1); Sodium Level 135 mmol/L (136-145)
[2020-03-07] MEDS: Losartan Potassium 100 MG Tablet PO (06:09)
[2020-03-07] MEDS: Pantoprazole Sodium 40 MG Tablet PO (06:09)
[2020-03-07] MEDS: Leflunomide 10 MG TABLET 20 MG PO (06:09)
[2020-03-07] MEDS: Carvedilol 25 MG Tablet PO ×2 (06:09→16:46)
[2020-03-07] MEDS: amLODIPine 2.5 MG Tablet PO (06:10)
[2020-03-07] MEDS: levETIRAcetam 500 MG Tablet PO ×2 (06:10→16:46)
[2020-03-07] MEDS: Clopidogrel Bisulfate 75 MG Tablet PO (06:10)
[2020-03-07 06:11] VITALS: BP 135/82; PULSE 84; RESP 17; TEMP 36.4; O2SAT 98
--- NOTE | 2020-03-07 08:00 | NURSING ---
New orders placed for mag level checks Qwed. mag level 1.7 today, Dr Vanessa aware.
[2020-03-07] MEDS: Calcium Carbonate 500 MG Tablet 1000 MG PO ×2 (09:00→16:46)
[2020-03-07] MEDS: Aspirin 81 MG TAB.CHEW PO (09:00)
[2020-03-07] MEDS: predniSONE 5 MG Tablet PO (09:00)
[2020-03-07 11:53] VITALS: PULSE 76; RESP 20; O2SAT 98
--- NOTE | 2020-03-07 13:37 | PHA.CONS_ITS ---
<Tiki Jones - Last Filed: 03/07/20 13:37> Progress Note - Pharmacy Subjective: TCU Admission Objective: Allergies gabapentin Allergy (Verified 02/20/20 18:50) Unknown nortriptyline Allergy (Verified 02/20/20 18:50) Unknown rofecoxib [From Vioxx] Allergy (Verified 02/20/20 18:50) Unknown tacrolimus Allergy (Verified 02/20/20 18:50) Unknown ciprofloxacin Adverse Reaction (Severe, Verified 03/06/20 11:23) seizure seizure metronidazole Adverse Reaction (Severe, Verified 03/06/20 11:23) seizure morphine Adverse Reaction (Verified 02/20/20 18:50) Nausea Current Medications Generic Name Dose Route Start Last Admin Trade Name Freq PRN Reason Stop Dose Admin Acetaminophen 1,000 mg 03/06/20 20:35 Tylenol Liquid PO Q6H PRN Pain Score 1-10/10 Albuterol Sulfate 2 puff 03/06/20 18:42 Ventolin Hfa (Sp) INHALATION Q6H PRN PRN sob/wheezing Amlodipine Besylate 2.5 mg 03/07/20 06:00 03/07/20 06:10 Norvasc PO 2.5 mg DAILY YEHUDA Administration Aspirin 81 mg 03/07/20 08:00 03/07/20 09:00 Aspirin, Baby PO 81 mg DAILY@0800 YEHUDA Administration Calcium Carbonate 1,000 mg 03/07/20 08:00 03/07/20 09:00 Tums PO 1,000 mg BIDCM YEHUDA Administration Calcium Carbonate 500 mg 03/07/20 07:47 Tums PO Q4H PRN PRN HEARTBURN Carvedilol 25 mg 03/07/20 06:00 03/07/20 06:09 Coreg PO 25 mg BID YEHUDA Administration Cholecalciferol 2,000 unit 03/07/20 08:00 03/07/20 09:01 Vitamin D (25mcg) PO 2,000 unit DAILYCM YEHUDA Administration Clopidogrel Bisulfate 75 mg 03/07/20 06:00 03/07/20 06:10 Plavix PO 75 mg DAILY YEHUDA Administration Leflunomide 20 mg 03/07/20 06:00 03/07/20 06:09 Leflunomide PO 20 mg DAILY YEHUDA Administration Levetiracetam 500 mg 03/07/20 06:00 03/07/20 06:10 Keppra Tablet PO 500 mg BID YEHUDA Administration Losartan Potassium 100 mg 03/07/20 06:00 03/07/20 06:09 Cozaar PO 100 mg DAILY YEHUDA Administration Ondansetron HCl 4 mg 03/06/20 18:36 Zofran Odt PO Q8H PRN PRN NAUSEA Pantoprazole Sodium 40 mg 03/07/20 06:00 03/07/20 06:09 Protonix PO 40 mg DAILY YEHUDA Administration Potassium Chloride 20 meq 03/07/20 12:45 03/07/20 11:50 K-Dur PO 20 meq TIDCM YEHUDA Administration Pravastatin Sodium 20 mg 03/06/20 22:00 03/06/20 20:08 Pravachol PO 20 mg QHS YEHUDA Administration Prednisone 5 mg 03/07/20 08:00 03/07/20 09:00 PO 5 mg DAILY@0800 YEHUDA Administration Tuberculin PPD 5 tu 03/14/20 10:00 Tubersol, Aplisol, Ppd ID 03/14/20 10:01 X1 ONE Vital Signs Temp Pulse Resp BP Pulse Ox 97.6 F L 76 20 H 135/82 H 98 03/07/20 06:11 03/07/20 11:53 03/07/20 11:53 03/07/20 06:11 03/07/20 11:53 Oxygen Delivery Method Room Air Weight: 84.935 kg Body Mass Index (BMI) 35.4 Finger Stick Blood Glucose 135 Sodium 135 mmol/L (136-145) L 03/07/20 05:20 Potassium 3.3 mmol/L (3.5-5.1) L 03/07/20 05:20 Chloride 103 mmol/L (98-107) 03/07/20 05:20 Carbon Dioxide 29.0 mmol/L (21.0-32.0) 03/07/20 05:20 Anion Gap 3 (5-15) L 03/07/20 05:20 BUN 17 mg/dL (7-18) 03/07/20 05:20 Creatinine 0.93 mg/dL (0.55-1.02) 03/07/20 05:20 Est GFR (MDRD) Af Amer 75 mL/min (>60) 03/07/20 05:20 Est GFR (MDRD) Non-Af 62 mL/min (>60) 03/07/20 05:20 BUN/Creatinine Ratio 18.3 RATIO (10-20) 03/07/20 05:20 Glucose 86 mg/dL (74-106) 03/07/20 05:20 Assessment/Plan: 1. Pain: acetaminophen 1000mg PO Q6H PRN pain (-03/17). Please continue to monitor for signs/symptoms of uncontrolled pain and as needed medication use. 2. Coronary Artery Disease/Hypertension: carvedilol 25mg PO BID, losartan 100mg PO daily, clopidogrel 75mg PO daily, aspirin 81mg PO daily, amlodipine 2.5mg PO daily. Please continue to monitor for signs/symptoms of anemia, bleeding/bruising, clots, blood pressure (135/82 03/07), pulse (84 03/07), and swelling. 3. PMR: leflunomide 20mg PO daily and prednisone 5mg PO daily. Please continue to monitor for signs/symptoms of muscle pain and stiffness, particularly around the shoulders and hips, stomach upset, difficulty sleeping, S/S of infection, rash, and LFTs. *4. Seizure: levetiracetam 500mg PO BID. Please continue to monitor for signs/symptoms of seizures, drowsiness, and rash. Please consider a levetiracetam level if patient will be taking senior care. Thanks. Please continue to monitor magnesium levels as clinically indicated (last 1.7mg/dL 03/07). 5. Electrolyte abnormalities: potassium chloride 20mEq PO BID, Tums 1000mg PO BID, cholecalciferol 2000IU PO daily. Please continue to monitor potassium (3.3mmol/L 03/07), calcium (7.5mg/dL 03/07), and vitamin D levels as clinically indicated. 6. COPD: albuterol MDI 2 inhalation Q6H PRN shortness of breath. Please continue to monitor for signs/symptoms of COPD exacerbation and as needed medication use. 7. GERD: pantoprazole 40mg PO daily, Tums 500mg PO Q4H PRN heartburn. Please continue to monitor for signs/symptoms of heartburn, as needed medication use, and diarrhea. *8. Hyperlipidemia: pravastatin 20mg PO QHS. Please continue to monitor for signs/symptoms of muscle pain. Please consider ordering a lipid panel as the last lipid panel on file from 11/05/18. 9. Nausea: ondansetron 4mg PO Q8H PRN nausea. Please continue to monitor for signs/symptoms of nausea, vomiting, and as needed medication use. Psychotropic Medications: None Unnecessary Medications: None Bowel Regimen: None Date of Note:: 03/07/20 - Provider Comments Provider responsibility: Provider responsible to enter orders to implement recommendations <Shen Vanessa Chi - Last Filed: 03/07/20 17:22> Progress Note - Pharmacy Subjective: [] Objective: Allergies gabapentin Allergy (Verified 02/20/20 18:50) Unknown nortriptyline Allergy (Verified 02/20/20 18:50) Unknown rofecoxib [From Vioxx] Allergy (Verified 02/20/20 18:50) Unknown tacrolimus Allergy (Verified 02/20/20 18:50) Unknown ciprofloxacin Adverse Reaction (Severe, Verified 03/06/20 11:23) seizure seizure metronidazole Adverse Reaction (Severe, Verified 03/06/20 11:23) seizure morphine Adverse Reaction (Verified 02/20/20 18:50) Nausea Current Medications Generic Name Dose Route Start Last Admin Trade Name Freq PRN Reason Stop Dose Admin Acetaminophen 1,000 mg 03/06/20 20:35 Tylenol Liquid PO Q6H PRN Pain Score 1-10/10 Albuterol Sulfate 2 puff 03/06/20 18:42 Ventolin Hfa (Sp) INHALATION Q6H PRN PRN sob/wheezing Amlodipine Besylate 2.5 mg 03/07/20 06:00 03/07/20 06:10 Norvasc PO 2.5 mg DAILY YEHUDA Administration Aspirin 81 mg 03/07/20 08:00 03/07/20 09:00 Aspirin, Baby PO 81 mg DAILY@0800 YEHUDA Administration Calcium Carbonate 1,000 mg 03/07/20 08:00 03/07/20 16:46 Tums PO 1,000 mg BIDCM YEHUDA Administration Calcium Carbonate 500 mg 03/07/20 07:47 Tums PO Q4H PRN PRN HEARTBURN Carvedilol 25 mg 03/07/20 06:00 03/07/20 16:46 Coreg PO 25 mg BID YEHUDA Administration Cholecalciferol 2,000 unit 03/07/20 08:00 03/07/20 09:01 Vitamin D (25mcg) PO 2,000 unit DAILYCM YEHUDA Administration Clopidogrel Bisulfate 75 mg 03/07/20 06:00 03/07/20 06:10 Plavix PO 75 mg DAILY YEHUDA Administration Leflunomide 20 mg 03/07/20 06:00 03/07/20 06:09 Leflunomide PO 20 mg DAILY YEHUDA Administration Levetiracetam 500 mg 03/07/20 06:00 03/07/20 16:46 Keppra Tablet PO 500 mg BID YEHUDA Administration Losartan Potassium 100 mg 03/07/20 06:00 03/07/20 06:09 Cozaar PO 100 mg DAILY YEHUDA Administration Ondansetron HCl 4 mg 03/06/20 18:36 Zofran Odt PO Q8H PRN PRN NAUSEA Pantoprazole Sodium 40 mg 03/07/20 06:00 03/07/20 06:09 Protonix PO 40 mg DAILY YEHUDA Administration Potassium Chloride 20 meq 03/07/20 12:45 03/07/20 16:46 K-Dur PO 20 meq TIDCM YEHUDA Administration Pravastatin Sodium 20 mg 03/06/20 22:00 03/06/20 20:08 Pravachol PO 20 mg QHS YEHUDA Administration Prednisone 5 mg 03/07/20 08:00 03/07/20 09:00 PO 5 mg DAILY@0800 YEHUDA Administration Tuberculin PPD 5 tu 03/14/20 10:00 Tubersol, Aplisol, Ppd ID 03/14/20 10:01 X1 ONE Vital Signs Temp Pulse Resp BP Pulse Ox 96.8 F L 83 18 138/51 H 97 03/07/20 15:03 03/07/20 15:03 03/07/20 15:03 03/07/20 15:03 03/07/20 15:03 Oxygen Delivery Method Room Air Weight: 84.935 kg Body Mass Index (BMI) 35.4 Finger Stick Blood Glucose 135 Sodium 135 mmol/L (136-145) L 03/07/20 05:20 Potassium 3.3 mmol/L (3.5-5.1) L 03/07/20 05:20 Chloride 103 mmol/L (98-107) 03/07/20 05:20 Carbon Dioxide 29.0 mmol/L (21.0-32.0) 03/07/20 05:20 Anion Gap 3 (5-15) L 03/07/20 05:20 BUN 17 mg/dL (7-18) 03/07/20 05:20 Creatinine 0.93 mg/dL (0.55-1.02) 03/07/20 05:20 Est GFR (MDRD) Af Amer 75 mL/min (>60) 03/07/20 05:20 Est GFR (MDRD) Non-Af 62 mL/min (>60) 03/07/20 05:20 BUN/Creatinine Ratio 18.3 RATIO (10-20) 03/07/20 05:20 Glucose 86 mg/dL (74-106) 03/07/20 05:20 Assessment/Plan: Psychotropic Medications: Unnecessary Medications: Bowel Regimen: - Provider Comments Provider responsibility: Provider responsible to enter orders to implement recommendations Provider Comments to Recommendations by Pharmacy: Agree
[2020-03-07 15:03] VITALS: BP 138/51; PULSE 83; RESP 18; TEMP 36; O2SAT 97
[2020-03-07] MEDS: Pravastatin 20 MG Tablet PO (21:47)
[2020-03-08 05:19] VITALS: BP 142/77; PULSE 85; RESP 18; TEMP 35.8; O2SAT 94
[2020-03-08] MEDS: Clopidogrel Bisulfate 75 MG Tablet PO (05:20)
[2020-03-08] MEDS: Leflunomide 10 MG TABLET 20 MG PO (05:20)
[2020-03-08] MEDS: Losartan Potassium 100 MG Tablet PO (05:20)
[2020-03-08] MEDS: Pantoprazole Sodium 40 MG Tablet PO (05:20)
[2020-03-08] MEDS: levETIRAcetam 500 MG Tablet PO ×2 (05:20→17:53)
[2020-03-08] MEDS: amLODIPine 2.5 MG Tablet PO (05:20)
[2020-03-08] MEDS: Carvedilol 25 MG Tablet PO ×2 (05:20→17:53)
[2020-03-08] MEDS: Aspirin 81 MG TAB.CHEW PO (08:47)
[2020-03-08] MEDS: predniSONE 5 MG Tablet PO (08:47)
[2020-03-08] MEDS: Calcium Carbonate 500 MG Tablet 1000 MG PO ×2 (08:47→17:53)
[2020-03-08 11:50] VITALS: PULSE 89; RESP 18; O2SAT 96
[2020-03-08 14:30] VITALS: BP 145/78; PULSE 79; RESP 14; TEMP 36.3; O2SAT 97
[2020-03-08] MEDS: Pravastatin 20 MG Tablet PO (21:55)
[2020-03-09 04:54] VITALS: BP 165/91; PULSE 88; RESP 16; TEMP 36.8; O2SAT 97
[2020-03-09] MEDS: Pantoprazole Sodium 40 MG Tablet PO (04:55)
[2020-03-09] MEDS: Clopidogrel Bisulfate 75 MG Tablet PO (04:55)
[2020-03-09] MEDS: Leflunomide 10 MG TABLET 20 MG PO (04:55)
[2020-03-09] MEDS: levETIRAcetam 500 MG Tablet PO ×2 (04:55→16:51)
[2020-03-09] MEDS: Carvedilol 25 MG Tablet PO ×2 (04:55→16:51)
[2020-03-09] MEDS: amLODIPine 2.5 MG Tablet PO (04:55)
[2020-03-09] MEDS: Losartan Potassium 100 MG Tablet PO (04:55)
[2020-03-09 06:02] LABS: Anion Gap 7 (5-15); BUN 20 mg/dL (7-18); BUN/Creat Ratio 25.6 RATIO (10-20); Calcium,Total 7.9 mg/dL (8.5-10.1); Chloride 104 mmol/L (98-107); Creatinine, Serum 0.78 mg/dL (0.55-1.02); EST Glomerular Filtration Rate 75 mL/min (>60); Est Glom Filt Rate - Afr Amer 91 mL/min (>60); Estimated Creatinine Clearance 34.42 ml/min; Glucose 88 mg/dL (74-106); Potassium 3.6 mmol/L (3.5-5.1); Sodium Level 137 mmol/L (136-145)
[2020-03-09] MEDS: Calcium Carbonate 500 MG Tablet 1000 MG PO ×2 (08:00→16:51)
[2020-03-09] MEDS: Aspirin 81 MG TAB.CHEW PO (08:00)
[2020-03-09] MEDS: predniSONE 5 MG Tablet PO (08:00)
[2020-03-09 08:03] VITALS: PULSE 76; RESP 16; O2SAT 98
[2020-03-09 16:44] VITALS: BP 146/78; PULSE 83; RESP 16; TEMP 36.9; O2SAT 96
[2020-03-09] MEDS: Pravastatin 20 MG Tablet PO (21:33)
[2020-03-10 05:13] VITALS: BP 120/69; PULSE 88; RESP 17; TEMP 36.6; O2SAT 97
[2020-03-10] MEDS: Pantoprazole Sodium 40 MG Tablet PO (05:14)
[2020-03-10] MEDS: amLODIPine 2.5 MG Tablet PO (05:14)
[2020-03-10] MEDS: Clopidogrel Bisulfate 75 MG Tablet PO (05:14)
[2020-03-10] MEDS: Leflunomide 10 MG TABLET 20 MG PO (05:15)
[2020-03-10] MEDS: Carvedilol 25 MG Tablet PO ×2 (05:15→18:15)
[2020-03-10] MEDS: Losartan Potassium 100 MG Tablet PO (05:15)
[2020-03-10] MEDS: levETIRAcetam 500 MG Tablet PO ×2 (05:15→18:15)
[2020-03-10] MEDS: Calcium Carbonate 500 MG Tablet 1000 MG PO ×2 (09:14→18:15)
[2020-03-10] MEDS: Aspirin 81 MG TAB.CHEW PO (09:14)
[2020-03-10] MEDS: predniSONE 5 MG Tablet PO (09:14)
[2020-03-10 13:46] VITALS: BP 126/68; PULSE 86; RESP 16; TEMP 36.2; O2SAT 98
[2020-03-10] MEDS: Pravastatin 20 MG Tablet PO (20:41)
[2020-03-10] MEDS: Menthol/Lanolin/Calamine/Znox 113 GM Tube 1 APPLIC TOPICAL (20:42)
[2020-03-11 04:58] VITALS: BP 138/71; PULSE 96; RESP 18; TEMP 37.1; O2SAT 92
[2020-03-11] MEDS: amLODIPine 2.5 MG Tablet PO (04:59)
[2020-03-11] MEDS: Clopidogrel Bisulfate 75 MG Tablet PO (04:59)
[2020-03-11] MEDS: Carvedilol 25 MG Tablet PO ×2 (05:00→17:37)
[2020-03-11] MEDS: Pantoprazole Sodium 40 MG Tablet PO (05:00)
[2020-03-11] MEDS: levETIRAcetam 500 MG Tablet PO ×2 (05:00→17:37)
[2020-03-11] MEDS: Losartan Potassium 100 MG Tablet PO (05:00)
[2020-03-11] MEDS: Leflunomide 10 MG TABLET 20 MG PO (05:00)
[2020-03-11] MEDS: Menthol/Lanolin/Calamine/Znox 113 GM Tube 1 APPLIC TOPICAL ×2 (05:02→17:38)
[2020-03-11] MEDS: Acetaminophen 650 MG/20 ML UDC 1000 MG PO (06:57)
[2020-03-11] MEDS: Aspirin 81 MG TAB.CHEW PO (08:37)
[2020-03-11] MEDS: Calcium Carbonate 500 MG Tablet 1000 MG PO (08:37)
[2020-03-11] MEDS: predniSONE 5 MG Tablet PO (08:37)
--- NOTE | 2020-03-11 09:42 | RAD_ITS ---
STUDY: X-RAY - ABDOMEN/PELVIS REASON FOR EXAM: Female, 79 years old. diarrhea TECHNIQUE: Single AP view of the abdomen / pelvis. COMPARISON: 03/06/2019 FINDINGS: Normal visualized lung bases. There is a nondilated bowel gas pattern. There is no demonstrated free abdominal air. The visualized liver, spleen and kidneys are grossly normal in size and morphology. Left hip replacement noted. There are vascular calcifications. There are diffuse degenerative changes of the visualized lumbar spine. RAD/Abdomen Single View IMPRESSION: Stable exam. Nonobstructive bowel gas pattern. Electronically Signed: Devaughn Cortes MD ([place]) at 12:08 EDT , Service support ,
--- NOTE | 2020-03-11 09:45 | NURSING ---
Notified Dr. Vanessa of patient having continual diarrhea. Received orders for abdominal xray and Questran 4grams BID. Order repeated back, will add order.
--- NOTE | 2020-03-11 10:09 | NURSING ---
Notified Dr. Vanessa that pharmacy states Questran will interfere with current medication, received order to change to Imodium 2mg q4hr PRN. Order repeated back, will add order.
[2020-03-11] MEDS: Loperamide 2 MG Capsule PO ×2 (11:55→17:37)
[2020-03-11 13:54] VITALS: BP 144/76; PULSE 79; RESP 16; TEMP 36.2; O2SAT 94
[2020-03-11] MEDS: Pravastatin 20 MG Tablet PO (20:03)
[2020-03-12 04:32] VITALS: BP 129/67; PULSE 86; RESP 18; TEMP 36.9; O2SAT 97
[2020-03-12] MEDS: Losartan Potassium 100 MG Tablet PO (04:34)
[2020-03-12] MEDS: Leflunomide 10 MG TABLET 20 MG PO (04:34)
[2020-03-12] MEDS: amLODIPine 2.5 MG Tablet PO (04:34)
[2020-03-12] MEDS: Pantoprazole Sodium 40 MG Tablet PO (04:34)
[2020-03-12] MEDS: Menthol/Lanolin/Calamine/Znox 113 GM Tube 1 APPLIC TOPICAL ×2 (04:34→17:54)
[2020-03-12] MEDS: Carvedilol 25 MG Tablet PO ×2 (04:34→17:55)
[2020-03-12] MEDS: levETIRAcetam 500 MG Tablet PO ×2 (04:34→17:55)
[2020-03-12] MEDS: Clopidogrel Bisulfate 75 MG Tablet PO (04:34)
[2020-03-12 05:28] LABS: Absolute Lymphocyte Count 0.78 X10^3/uL (0.83-4.51); Absolute Neutrophil Count 7.6 X10^3/uL (2.0-7.7); Basophil# 0.04 X10^3/uL; Basophil% 0.4 % (0-1); Eosinophils% 2.1 % (0-5); Hematocrit 27.4 % (37-47); Hemoglobin 8.4 g/dL (12.0-15.0); Lymphocyte # 0.78 X10^3/ul (4.0); Lymphocyte % 8.2 % (19-41); Mean Corp Hgb Conc 30.7 g/dL (32-36); Mean Corpuscular Hgb 29.7 pg (27.0-32.0); Mean Corpuscular Volume 96.8 fL (81-99); Mean Platelet Vol. 9.6 fl (6.2-12.0); Monocyte# 0.84 X10^3/uL; Monocyte% 8.8 % (0-10); NRBC Flagged by Analyzer 0 % (0-5); Neutrophil # 7.61 X10^3/uL (2.7-7.7); Neutrophil % 79.9 % (47-70); Platelet Count 192 K/mm3 (150-450); RBC Distribution Width CV 14.6 % (11.6-14.6); Red Blood Count 2.83 M/mm3 (4.2-5.4); White Blood Count 9.5 K/mm3 (4.4-11.0)
[2020-03-12] MEDS: Loperamide 2 MG Capsule PO ×2 (06:34→18:50)
[2020-03-12] MEDS: Aspirin 81 MG TAB.CHEW PO (08:30)
[2020-03-12] MEDS: predniSONE 5 MG Tablet PO (08:30)
[2020-03-12] MEDS: Calcium Carbonate 500 MG Tablet 1000 MG PO ×2 (08:30→17:53)
[2020-03-12] MEDS: Iron Polysaccharide Complex 150 MG CAPSULE PO (09:17)
[2020-03-12 13:32] VITALS: BP 124/68; PULSE 83; RESP 16; TEMP 36.9; O2SAT 98
--- NOTE | 2020-03-12 14:17 | CASEMGMT ---
Addendum entered by Adri Ch 03/12/20 16:30: [facility] does not accept MCDP. [facility] and [facility] have accepted thus far. Original Note: Social Work Spoke with pt about DC plans. Pt is progressing well and now adlib in room. Pt inquired about AL. Explained there are only 3 Medicaid ALF - provided list. Pt not sure about any of them but agreed to research and get back with SW. Pt would like referrals made to SNFs - [facility], [facility], [facility], and [facility]. Referrals made. Contacted [facility] to f/u on Medicaid Pending number - C.M. to contact SW the following day for number. Will continue to follow. Adri Ch, [employer] CLAIM BENEFIT SPECIALIST
[2020-03-12] MEDS: Pravastatin 20 MG Tablet PO (20:16)
[2020-03-13 05:47] VITALS: BP 149/68; PULSE 87; RESP 16; TEMP 36.6; O2SAT 98
[2020-03-13] MEDS: Clopidogrel Bisulfate 75 MG Tablet PO (05:48)
[2020-03-13] MEDS: Pantoprazole Sodium 40 MG Tablet PO (05:48)
[2020-03-13] MEDS: amLODIPine 2.5 MG Tablet PO (05:48)
[2020-03-13] MEDS: Carvedilol 25 MG Tablet PO ×2 (05:48→17:29)
[2020-03-13] MEDS: Losartan Potassium 100 MG Tablet PO (05:48)
[2020-03-13] MEDS: levETIRAcetam 500 MG Tablet PO ×2 (05:48→17:29)
[2020-03-13] MEDS: Leflunomide 10 MG TABLET 20 MG PO (05:48)
[2020-03-13 06:09] LABS: Anion Gap 6 (5-15); BUN 16 mg/dL (7-18); BUN/Creat Ratio 20.7 RATIO (10-20); Calcium,Total 8.2 mg/dL (8.5-10.1); Chloride 107 mmol/L (98-107); Creatinine, Serum 0.77 mg/dL (0.55-1.02); EST Glomerular Filtration Rate 76 mL/min (>60); Est Glom Filt Rate - Afr Amer 92 mL/min (>60); Estimated Creatinine Clearance 34.42 ml/min; Glucose 86 mg/dL (74-106); Potassium 3.8 mmol/L (3.5-5.1); Sodium Level 137 mmol/L (136-145)
[2020-03-13] MEDS: predniSONE 5 MG Tablet PO (08:48)
[2020-03-13] MEDS: Aspirin 81 MG TAB.CHEW PO (08:48)
[2020-03-13] MEDS: Calcium Carbonate 500 MG Tablet 1000 MG PO ×2 (08:48→17:29)
[2020-03-13] MEDS: Iron Polysaccharide Complex 150 MG CAPSULE PO (08:48)
[2020-03-13] MEDS: Menthol/Lanolin/Calamine/Znox 113 GM Tube 1 APPLIC TOPICAL ×2 (08:55→17:29)
[2020-03-13 08:57] VITALS: RESP 87; O2SAT 99
--- NOTE | 2020-03-13 10:10 | CASEMGMT ---
Social Work PEYTON Browning contacted SW with pt's Medicaid Pending #[id number]. CM will fax additional paperwork to SW to provide to pt to finish completing the Medicaid process. Paperwork provided to pt. Will continue to follow. EL DeeW
[2020-03-13 13:56] VITALS: BP 129/79; PULSE 85; RESP 16; TEMP 37; O2SAT 98
--- NOTE | 2020-03-13 16:26 | CASEMGMT ---
Social Work Left message with the [facility] to follow up on referral. Will await return phone call. EL DeeW
[2020-03-13] MEDS: Loperamide 2 MG Capsule PO (18:10)
[2020-03-13] MEDS: Pravastatin 20 MG Tablet PO (19:49)
[2020-03-14 05:41] LABS: Hematocrit 27.1 % (37-47); Hemoglobin 8.2 g/dL (12.0-15.0)
[2020-03-14 05:48] LABS: Magnesium 1.2 mg/dL (1.6-2.6)
[2020-03-14 06:16] VITALS: BP 146/81; PULSE 88; RESP 16; TEMP 36.6; O2SAT 95
[2020-03-14] MEDS: Losartan Potassium 100 MG Tablet PO (06:17)
[2020-03-14] MEDS: Pantoprazole Sodium 40 MG Tablet PO (06:17)
[2020-03-14] MEDS: levETIRAcetam 500 MG Tablet PO ×2 (06:17→17:23)
[2020-03-14] MEDS: Leflunomide 10 MG TABLET 20 MG PO (06:18)
[2020-03-14] MEDS: Clopidogrel Bisulfate 75 MG Tablet PO (06:18)
[2020-03-14] MEDS: Carvedilol 25 MG Tablet PO ×2 (06:18→17:23)
[2020-03-14] MEDS: amLODIPine 2.5 MG Tablet PO (06:19)
[2020-03-14] MEDS: Menthol/Lanolin/Calamine/Znox 113 GM Tube 1 APPLIC TOPICAL ×2 (06:20→17:24)
[2020-03-14] MEDS: Calcium Carbonate 500 MG Tablet 1000 MG PO ×2 (08:25→17:21)
[2020-03-14] MEDS: predniSONE 5 MG Tablet PO (08:25)
[2020-03-14] MEDS: Iron Polysaccharide Complex 150 MG CAPSULE PO (08:25)
[2020-03-14] MEDS: Aspirin 81 MG TAB.CHEW PO (08:25)
[2020-03-14] MEDS: Magnesium Chloride 64 MG Delay Rel.Tablet 128 MG PO ×2 (08:26→17:23)
[2020-03-14] MEDS: Loperamide 2 MG Capsule PO (08:45)
[2020-03-14] MEDS: Tuberculin,Purif.prot.deriv. 50 TU/ML Vial 5 ML ID (09:45)
--- NOTE | 2020-03-14 12:26 | CASEMGMT ---
Social Work IDT met with patient and dtr via conference call for care plan meeting. Discussed patient's progress in therapy. Pt is [place] for all ADLS, adlib in room. Pt is on acardiac heart healthy diet, good intake. Pt is out of isolation 03/20, having some edema in legs/feet and diarrhea. Explained Medicare insurance. Received MCDP#. Updated pt about all accepting SNFs. Pt would like to be in [place] closer to dtr. Dtr and pt to discuss final choice. Dtr will assist pt with collecting the final documents needed for Medicaid and will bring in laptop for pt to access information online. SW offered to assist pt with printing bank statements online, etc. Once SNF is decided, IDT to set DC date. Will continue to follow. EL DeeW
[2020-03-14 14:00] VITALS: BP 158/87; PULSE 86; RESP 16; TEMP 37.2; O2SAT 98
[2020-03-14] MEDS: Pravastatin 20 MG Tablet PO (21:55)
[2020-03-14 22:06] VITALS: O2SAT 98
[2020-03-15 05:34] VITALS: BP 177/90; PULSE 79; RESP 18; TEMP 36.6; O2SAT 98
[2020-03-15] MEDS: Carvedilol 25 MG Tablet PO ×2 (05:36→17:14)
[2020-03-15] MEDS: Losartan Potassium 100 MG Tablet PO (05:37)
[2020-03-15] MEDS: Clopidogrel Bisulfate 75 MG Tablet PO (05:37)
[2020-03-15] MEDS: levETIRAcetam 500 MG Tablet PO ×2 (05:37→17:14)
[2020-03-15] MEDS: Magnesium Chloride 64 MG Delay Rel.Tablet 128 MG PO ×2 (05:37→17:14)
[2020-03-15] MEDS: Leflunomide 10 MG TABLET 20 MG PO (05:37)
[2020-03-15] MEDS: Pantoprazole Sodium 40 MG Tablet PO (05:38)
[2020-03-15] MEDS: amLODIPine 2.5 MG Tablet PO (05:38)
[2020-03-15] MEDS: Menthol/Lanolin/Calamine/Znox 113 GM Tube 1 APPLIC TOPICAL (05:39)
[2020-03-15] MEDS: Iron Polysaccharide Complex 150 MG CAPSULE PO (07:51)
[2020-03-15] MEDS: Aspirin 81 MG TAB.CHEW PO (07:51)
[2020-03-15] MEDS: Calcium Carbonate 500 MG Tablet 1000 MG PO ×2 (07:52→17:13)
[2020-03-15] MEDS: predniSONE 5 MG Tablet PO (07:52)
--- NOTE | 2020-03-15 08:55 | PCA ---
Patient informed me as i was delivering her breakfast tray that she had a medium sized emsis without warning or any further symptoms ex: upset stomach, FELICE León notified
--- NOTE | 2020-03-15 12:08 | CASEMGMT ---
Social Work Spoke with patient about facility of choice - she has chosen [facility]. She would like to transition to [place]. Notified [facility] of FOC and to really to SW to apply for [place] Waiver to be placed on the [place] waitlists. Dtr to transport pt. Plan: DC to [facility] nonskilled, Medicaid pending, 03/21 EL DeeW
--- NOTE | 2020-03-15 14:14 | MDS.RN ---
Information for the mds was obtained from review of the clinical record, interview of resident, staff, and direct observation of resident's care.
[2020-03-15 14:37] VITALS: BP 142/58; PULSE 84; RESP 16; TEMP 36.8; O2SAT 97
--- NOTE | 2020-03-15 19:59 | DCINST_ITS ---
You will use the following diet at home:: No restrictions, Regular Your food should be the consistency of: Regular Your liquids should be the consistency of: Regular/Thin Discharge Activity: Return to Normal Activity, May Shower, Use Walker Weight Bearing Status: Weight bearing as tolerated Call your doctor if you observe: Fever of 101 or Higher, Inability to urinate, Inability to have a bowel movement, Shortness of breath, Chest pain, Uncontrolled pain Allergies/Adverse Reactions: Allergies gabapentin Allergy (Verified 02/20/20 18:50) Unknown nortriptyline Allergy (Verified 02/20/20 18:50) Unknown rofecoxib [From Vioxx] Allergy (Verified 02/20/20 18:50) Unknown tacrolimus Allergy (Verified 02/20/20 18:50) Unknown ciprofloxacin Adverse Reaction (Severe, Verified 03/06/20 11:23) seizure seizure metronidazole Adverse Reaction (Severe, Verified 03/06/20 11:23) seizure morphine Adverse Reaction (Verified 02/20/20 18:50) Nausea Medications to take at Discharge Acetaminophen Liquid [Tylenol Liquid] 1,000 mg PO Q6H PRN udc 03/15/20 Amlodipine [Norvasc] 2.5 mg PO DAILY tablet 03/15/20 Aspirin [Aspirin, Baby] 81 mg PO DAILY@0800 tab.chew 03/15/20 Calcium Carbonate [Tums] 1,000 mg PO BIDCM tablet 03/15/20 Calcium Carbonate [Tums] 500 mg PO Q4H PRN PRN tablet 03/15/20 Carvedilol [Coreg (Beta Gertrudis)] 25 mg PO BID tab 03/15/20 Cholecalciferol (VIT D3) [Vitamin D3] 2,000 unit PO DAILYCM tablet 03/15/20 Clopidogrel Bisulfate [Plavix] 75 mg PO DAILY tablet 03/15/20 Iron Polysaccharide Complex [Ferrex 150] 150 mg PO DAILYCM capsule 03/15/20 Leflunomide 20 mg PO DAILY tablet 03/15/20 Loperamide [Imodium] 2 mg PO Q4H PRN PRN capsule 03/15/20 Losartan Potassium [Cozaar] 100 mg PO DAILY tab 03/15/20 Magnesium Oxide 400 mg PO BID #60 tab 03/15/20 Menthol/Lanolin/Calamine/Znox [Calmoseptine Ointment] 1 applic TOPICAL BID tube 03/15/20 Pantoprazole Sodium [Protonix] 40 mg PO DAILY tablet 03/15/20 Potassium Chloride [K-Dur] 20 meq PO TIDCM tablet 03/15/20 Pravastatin [Pravachol] 20 mg PO QHS tablet 03/15/20 levETIRAcetam tablet [Keppra tablet] 500 mg PO BID tablet 03/15/20 The following prescriptions were given: Magnesium Oxide 400 mg PO BID #60 tab Prescription Printed Primary Care Physician: Nicolas Villegas MD [Primary Care Provider] - Please follow up with your Primary Care Physician in: 1 week. Test Results: Test results from this visit will be discussed in further detail at your follow- up appointment, if applicable. Proposed Discharge Date: 03/21/20
--- NOTE | 2020-03-15 20:01 | DS.PCM_ITS ---
Discharge Date and Diagnosis Date of Admission: 03/06/20 Date of Discharge: 03/21/20 - Secondary Discharge Diagnosis Chronic Problems: Chronic Problems (Last Reviewed 02/20/20 @ 20:[address] Cesar Chandra MD) Cystitis (Chronic) Polymyalgia rheumatica (Chronic) Fall (Chronic) Pancolitis (Chronic) Diarrhea (Chronic) Ileus (Chronic) Lymphedema (Chronic) Hypertension (Chronic) Chronic kidney disease, stage 2 (mild) (Chronic) GERD (gastroesophageal reflux disease) (Chronic) Coronary artery disease (Chronic) BMI 36.0-36.9,adult (Chronic) Pulmonary hypertension (Chronic) RVSP 55 COPD (chronic obstructive pulmonary disease) (Chronic) AILYN (obstructive sleep apnea) (Chronic) AHI 115 and titrated to nasal CPAP 14 cm of water Atherosclerotic heart disease of [place] coronary artery without angina pectoris (Chronic) Chronic renal insufficiency, stage II (mild) (Chronic) Hyperglycemia, unspecified (Chronic) Carotid stenosis (Chronic) Renal artery stenosis (Chronic) HLD (hyperlipidemia) (Chronic) Benign essential hypertension (Chronic) Hospital Course and Treatment Imaging Results: 03/07/20 06:57 Diet: Cardiac - Heart Healthy Is pt able to select menu?: Yes Clinical Impression(s) from Imaging Studies KUB X-Ray 03/11/20 09:42 IMPRESSION: Stable exam. Nonobstructive bowel gas pattern. Electronically Signed: Devaughn Cortes MD ([place]) at 12:08 EDT , Service support , Labs (Last 48 Hours) 03/14/20 03/14/20 05:15 05:15 Hgb 8.2 L Hct 27.1 L Magnesium 1.2 L Operations: None Procedures: None Summary of Care Provided: The patient is a 79 year old Female with below past medical history hospitalized for acute seizure secondary to hypomagnesemia, complicated by hyponatremia, admitted to TCU with debility, here for rehabilitation, strengthening, prior to discharge home alone. Discharge to [facility] nonskilled, Medicaid pending. - Physical Exam Vitals/I&O's: Vital Signs Temp Pulse Resp BP Pulse Ox 98.3 F 84 16 142/58 H 97 03/15/20 14:37 03/15/20 14:37 10/08/20 14:37 03/15/20 14:37 03/15/20 14:37 Oxygen Delivery Method Room Air Weight: 85.417 kg Body Mass Index (BMI) 35.4 Finger Stick Blood Glucose 135 Intake and Output for Last 24 Hours 03/13/20 03/14/20 03/15/20 23:59 23:59 23:59 Intake Total 960 / 960 600 / 600 600 / 600 Balance 960 / 960 600 / 600 600 / 600 Current Medications Acetaminophen (Tylenol Liquid) 1,000 mg PO Q6H PRN PRN Reason: Pain Score 1-03/17 Last Admin: 03/11/20 06:57 Dose: 1,000 mg Documented by: Albuterol Sulfate (Ventolin Hfa (Sp)) 2 puff INHALATION Q6H PRN PRN PRN Reason: sob/wheezing Amlodipine Besylate (Norvasc) 2.5 mg PO DAILY [facility] Last Admin: 03/15/20 05:38 Dose: 2.5 mg Documented by: Aspirin (Aspirin, Baby) 81 mg PO DAILY@0800 [facility] Last Admin: 03/15/20 07:51 Dose: 81 mg Documented by: Calamine/Phenol (Calmoseptine Ointment) 1 applic TOPICAL BID [facility]; Protocol Last Admin: 03/15/20 17:16 Dose: Not Given Documented by: [facility] Admin: 03/15/20 17:13 Dose: 1,000 mg Documented by: Calcium Carbonate (Tums) 500 mg PO Q4H PRN PRN PRN Reason: HEARTBURN Carvedilol (Coreg) 25 mg PO BID [facility] Last Admin: 03/15/20 17:14 Dose: 25 mg Documented by: Cholecalciferol (Vitamin D (25mcg)) 2,[facility] Last Admin: 03/15/20 07:52 Dose: 2,000 unit Documented by: Clopidogrel Bisulfate (Plavix) 75 mg PO DAILY [facility] Last Admin: 03/15/20 05:37 Dose: 75 mg Documented by: Leflunomide (Leflunomide) 20 mg PO DAILY [facility] Last Admin: 03/15/20 05:37 Dose: 20 mg Documented by: Levetiracetam (Keppra Tablet) 500 mg PO BID [facility] Last Admin: 03/15/20 17:14 Dose: 500 mg Documented by: Loperamide HCl (Imodium) 2 mg PO Q4H PRN PRN PRN Reason: DIARRHEA/LOOSE STOOLS Last Admin: 03/14/20 08:45 Dose: 2 mg Documented by: Losartan Potassium (Cozaar) 100 mg PO DAILY [facility] Last Admin: 03/15/20 05:37 Dose: 100 mg Documented by: Magnesium Chloride (Mag64) 128 mg PO BID [facility] Last Admin: 03/15/20 17:14 Dose: 128 mg Documented by: Ondansetron HCl (Zofran Odt) 4 mg PO Q8H PRN PRN PRN Reason: NAUSEA Pantoprazole Sodium (Protonix) 40 mg PO DAILY [facility] Last Admin: 03/15/20 05:38 Dose: 40 mg Documented by: Polysaccharide Iron Complex (Ferrex 150) 150 mg PO DAILYCM [facility] Last Admin: 03/15/20 07:51 Dose: 150 mg Documented by: Potassium Chloride (K-Dur) 20 meq PO TIDCM [facility] Last Admin: 03/15/20 19:02 Dose: Not Given Documented by: Pravastatin Sodium (Pravachol) 20 mg PO QHS [facility] Last Admin: 03/14/20 21:55 Dose: 20 mg Documented by: Prednisone () 5 mg PO DAILY@0800 [facility] Last Admin: 03/15/20 07:52 Dose: 5 mg Documented by: Discharge Diet: No Restrictions Discharge Activity: Return to Normal Activity, May Shower, Use Walker Weight Bearing Status: Weight bearing as tolerated Call your doctor if you observe: Fever of 101 or Higher, Inability to urinate, Inability to have a bowel movement, Shortness of breath, Chest pain, Uncontrolled pain Home Medications: Medications to take at Discharge Acetaminophen Liquid [Tylenol Liquid] 1,000 mg PO Q6H PRN udc 03/15/20 Amlodipine [Norvasc] 2.5 mg PO DAILY tablet 03/15/20 Aspirin [Aspirin, Baby] 81 mg PO DAILY@0800 tab.chew 03/15/20 Calcium Carbonate [Tums] 1,000 mg PO BIDCM tablet 03/15/20 Calcium Carbonate [Tums] 500 mg PO Q4H PRN PRN tablet 03/15/20 Carvedilol [Coreg (Beta Gertrudis)] 25 mg PO BID tab 03/15/20 Cholecalciferol (VIT D3) [Vitamin D3] 2,000 unit PO DAILYCM tablet 03/15/20 Clopidogrel Bisulfate [Plavix] 75 mg PO DAILY tablet 03/15/20 Iron Polysaccharide Complex [Ferrex 150] 150 mg PO DAILYCM capsule 03/15/20 Leflunomide 20 mg PO DAILY tablet 03/15/20 Loperamide [Imodium] 2 mg PO Q4H PRN PRN capsule 03/15/20 Losartan Potassium [Cozaar] 100 mg PO DAILY tab 03/15/20 Magnesium Oxide 400 mg PO BID #60 tab 03/15/20 Menthol/Lanolin/Calamine/Znox [Calmoseptine Ointment] 1 applic TOPICAL BID tube 03/15/20 Pantoprazole Sodium [Protonix] 40 mg PO DAILY tablet 03/15/20 Potassium Chloride [K-Dur] 20 meq PO TIDCM tablet 03/15/20 Pravastatin [Pravachol] 20 mg PO QHS tablet 03/15/20 levETIRAcetam tablet [Keppra tablet] 500 mg PO BID tablet 03/15/20 Following Prescriptions Were Given to Patient: Magnesium Oxide 400 mg PO BID #60 tab Prescription Printed Primary Care Physician: Nicolas Villegas MD [Primary Care Provider] - Please follow up with your Primary Care Physician in: 1 week. Disposition: Asstd Living/Non-Skill [place] Minutes spent on discharge:: 35 Patient Condition:: Stable Medical Necessity - Tobacco Use Smoking Status: Former smoker Tobacco Use: Non-smoker Meaningful Use Info Meaningful Use Diagnoses (Choose all that apply): None applicable
--- NOTE | 2020-03-15 20:02 | TREXTCAR_ITS ---
- Diet 03/07/20 06:57 Diet: Cardiac - Heart Healthy Is pt able to select menu?: Yes - Routine Orders/Code Status Code Status: Full Code - Therapies Weight Bearing: Weight bearing as tolerated Extremity Affected:: Bilateral Lower - Problem/Diagnosis (1) Polymyalgia rheumatica Status: Chronic Current Visit: No (2) Debility Status: Acute Current Visit: No (3) Pancolitis Status: Chronic Current Visit: No (4) Diarrhea Status: Chronic Current Visit: No (5) Lymphedema Status: Chronic Current Visit: No (6) Hypertension Status: Chronic Current Visit: No (7) GERD (gastroesophageal reflux disease) Status: Chronic Current Visit: No (8) Coronary artery disease Status: Chronic Current Visit: No (9) Seizure Status: Acute Current Visit: No (10) Hypomagnesemia Status: Acute Current Visit: No (11) Hyponatremia Status: Acute Current Visit: No (12) Pulmonary hypertension Status: Chronic Comment: RVSP 55 Current Visit: No (13) COPD (chronic obstructive pulmonary disease) Status: Chronic Current Visit: No (14) AILYN (obstructive sleep apnea) Status: Chronic Comment: AHI 115 and titrated to nasal CPAP 14 cm of water Current Visit: No (15) Renal artery stenosis Status: Chronic Current Visit: No (16) HLD (hyperlipidemia) Status: Chronic Current Visit: No - Allergies/Procedures Done in Hospital Allergies/Adverse Reactions: Allergies gabapentin Allergy (Verified 02/20/20 18:50) Unknown nortriptyline Allergy (Verified 02/20/20 18:50) Unknown rofecoxib [From Vioxx] Allergy (Verified 02/20/20 18:50) Unknown tacrolimus Allergy (Verified 02/20/20 18:50) Unknown ciprofloxacin Adverse Reaction (Severe, Verified 03/06/20 11:23) seizure seizure metronidazole Adverse Reaction (Severe, Verified 03/06/20 11:23) seizure morphine Adverse Reaction (Verified 02/20/20 18:50) Nausea - Type of Care/Length of Stay Estimated LOS: More Than 30 Days Type of Care Needed: Intermediate Rehab Potential: Fair Prognosis: Fair - Additional Orders/Day of Discharge Day of Discharge: 03/21/20 - Dietary and Speech Recommendations Dietitian Recommendations/Changes: Will d/c ONS at [facility] as not indicated at this time - Follow Up Care Primary Care Physician: Nicolas Villegas MD [Primary Care Provider] - Please follow up with your Primary Care Physician in: 1 week.
[2020-03-15] MEDS: Pravastatin 20 MG Tablet PO (20:06)
[2020-03-15] MEDS: Calcium Carbonate 500 MG Tablet PO (20:06)
[2020-03-16] MEDS: Magnesium Chloride 64 MG Delay Rel.Tablet 128 MG PO ×2 (05:23→17:26)
[2020-03-16] MEDS: Losartan Potassium 100 MG Tablet PO (05:23)
[2020-03-16] MEDS: Clopidogrel Bisulfate 75 MG Tablet PO (05:23)
[2020-03-16] MEDS: Pantoprazole Sodium 40 MG Tablet PO (05:23)
[2020-03-16] MEDS: amLODIPine 2.5 MG Tablet PO (05:23)
[2020-03-16] MEDS: Leflunomide 10 MG TABLET 20 MG PO (05:23)
[2020-03-16] MEDS: levETIRAcetam 500 MG Tablet PO ×2 (05:23→17:26)
[2020-03-16] MEDS: Carvedilol 25 MG Tablet PO ×2 (05:24→17:26)
[2020-03-16] MEDS: Menthol/Lanolin/Calamine/Znox 113 GM Tube 1 APPLIC TOPICAL (05:24)
[2020-03-16 05:32] VITALS: BP 161/78; PULSE 89; RESP 16; TEMP 36.7; O2SAT 97
[2020-03-16 05:48] LABS: Magnesium 1.3 mg/dL (1.6-2.6)
[2020-03-16] MEDS: Calcium Carbonate 500 MG Tablet 1000 MG PO ×2 (08:17→15:50)
[2020-03-16] MEDS: Aspirin 81 MG TAB.CHEW PO (08:17)
[2020-03-16] MEDS: predniSONE 5 MG Tablet PO (08:17)
[2020-03-16] MEDS: Iron Polysaccharide Complex 150 MG CAPSULE PO (08:17)
[2020-03-16 13:49] VITALS: BP 113/74; PULSE 86; RESP 14; TEMP 36.2; O2SAT 95
[2020-03-16] MEDS: Pravastatin 20 MG Tablet PO (19:57)
[2020-03-17 06:09] VITALS: BP 169/79; PULSE 84; RESP 16; TEMP 36.9; O2SAT 97
[2020-03-17] MEDS: amLODIPine 2.5 MG Tablet PO (06:11)
[2020-03-17] MEDS: Leflunomide 10 MG TABLET 20 MG PO (06:11)
[2020-03-17] MEDS: Clopidogrel Bisulfate 75 MG Tablet PO (06:11)
[2020-03-17] MEDS: levETIRAcetam 500 MG Tablet PO ×2 (06:11→16:54)
[2020-03-17] MEDS: Magnesium Chloride 64 MG Delay Rel.Tablet 128 MG PO (06:11)
[2020-03-17] MEDS: Losartan Potassium 100 MG Tablet PO (06:11)
[2020-03-17] MEDS: Carvedilol 25 MG Tablet PO ×2 (06:12→16:55)
[2020-03-17] MEDS: Pantoprazole Sodium 40 MG Tablet PO (06:12)
[2020-03-17] MEDS: Menthol/Lanolin/Calamine/Znox 113 GM Tube 1 APPLIC TOPICAL ×2 (06:14→16:57)
[2020-03-17] MEDS: Ondansetron ODT 4 MG Tablet PO (08:50)
[2020-03-17 08:57] LABS: Magnesium 1.3 mg/dL (1.6-2.6)
--- NOTE | 2020-03-17 08:57 | NURSING ---
pt c/o nausea this am, denies issues with bowels. states had a good BM yesterday, normal for her. zofran given. will give AM meds when pt feeling better.
[2020-03-17] MEDS: Calcium Carbonate 500 MG Tablet 1000 MG PO ×2 (10:57→16:55)
[2020-03-17] MEDS: Aspirin 81 MG TAB.CHEW PO (10:58)
[2020-03-17] MEDS: predniSONE 5 MG Tablet PO (10:58)
[2020-03-17] MEDS: Iron Polysaccharide Complex 150 MG CAPSULE PO (10:58)
[2020-03-17 14:43] VITALS: BP 114/54; PULSE 81; RESP 17; TEMP 36.9; O2SAT 97
[2020-03-17] MEDS: Magnesium Chloride 64 MG Delay Rel.Tablet 256 MG PO (16:54)
[2020-03-17] MEDS: Pravastatin 20 MG Tablet PO (19:37)
[2020-03-17 19:39] VITALS: O2SAT 98
[2020-03-18] MEDS: Losartan Potassium 100 MG Tablet PO (06:02)
[2020-03-18] MEDS: Carvedilol 25 MG Tablet PO (06:02)
[2020-03-18] MEDS: amLODIPine 2.5 MG Tablet PO (06:03)
[2020-03-18] MEDS: Pantoprazole Sodium 40 MG Tablet PO (06:03)
[2020-03-18] MEDS: Magnesium Chloride 64 MG Delay Rel.Tablet 256 MG PO (06:03)
[2020-03-18] MEDS: Clopidogrel Bisulfate 75 MG Tablet PO (06:03)
[2020-03-18] MEDS: Leflunomide 10 MG TABLET 20 MG PO (06:03)
[2020-03-18] MEDS: levETIRAcetam 500 MG Tablet PO (06:03)
[2020-03-18 06:05] VITALS: BP 129/54; PULSE 69; RESP 18; TEMP 36.8; O2SAT 97
[2020-03-18] MEDS: Menthol/Lanolin/Calamine/Znox 113 GM Tube 1 APPLIC TOPICAL ×2 (06:05→16:49)
--- NOTE | 2020-03-18 07:33 | RAD_ITS ---
STUDY: X-RAY - ABDOMEN/PELVIS REASON FOR EXAM: Female, 79 years old. ABD PAIN, CONSTIPATION TECHNIQUE: Single AP view of the abdomen / pelvis. COMPARISON: 03/11/2020 FINDINGS: Normal visualized lung bases. There is an unremarkable bowel gas pattern. There is no demonstrated free abdominal air. The visualized liver, spleen and kidneys are grossly normal in size and morphology. There are vascular calcifications. Normal soft tissue structures. There is levoscoliosis of the thoracolumbar spine. Degenerative changes of the lumbar spine. Left hip replacement noted. RAD/Abdomen Single View (Portable) IMPRESSION: Nonobstructive bowel gas pattern. Electronically Signed: Devaughn Cortes MD ([place]) at 8:20 EDT , Service support ,
--- NOTE | 2020-03-18 07:53 | NURSING ---
pt c/o abd pain/discomfort. states she feels like she needs to have a BM, only had small this AM. pt also reported that she vomited early AM but did not let staff know and should have. Dr elizabeth updated, new order for KUB and administer SSE. Pt states that she has had this happen at home too.
[2020-03-18] MEDS: Aspirin 81 MG TAB.CHEW PO (09:22)
[2020-03-18] MEDS: predniSONE 5 MG Tablet PO (09:22)
[2020-03-18] MEDS: Calcium Carbonate 500 MG Tablet 1000 MG PO (09:23)
[2020-03-18] MEDS: Magnesium Citrate 300 ML PO (09:54)
[2020-03-18] MEDS: Ondansetron ODT 4 MG Tablet PO ×2 (10:49→18:38)
--- NOTE | 2020-03-18 10:51 | NURSING ---
pt has mod amt of soft stool from SSE. Dr elizabeth updated and reported pt KUB shows impaction of cecum ascending colon and ordered mag citrate. pt started drinking mag citrate & approx 30 minutes later began vomiting up brkfst. pt given zofran & gonna try to finish drinking mag citrate. will update dr elizabeth.
[2020-03-18 10:56] VITALS: PULSE 88; RESP 18; O2SAT 95
[2020-03-18] MEDS: Lactulose 20 GM/30 ML UDC 40 GM PO (12:48)
[2020-03-18 14:53] VITALS: BP 130/60; PULSE 80; RESP 16; TEMP 36.8; O2SAT 98
--- NOTE | 2020-03-18 15:16 | NURSING ---
pt given lactulose by mouth and vomited it all up, dr elizabeth notified. wants pt to have lactulose enema. pt resting in bed, updated.
[2020-03-18] MEDS: Lactulose 20 GM/30 ML UDC 200 GM RECTAL (16:23)
--- NOTE | 2020-03-18 16:38 | NURSING ---
Addendum entered by Susana Olivares 03/18/20 17:00: dr elizabeth updated on very little results & pt c/o gas pain in lower abdomen. BS hyperactive. new order to give mylanta. Original Note: lactulose enema given, pt sitting on bedside commode. pt with gas pains, passing lots of gas. small pieces of dark brown stool noted with administration. pt c/o nausea, pt given emesis bag. will continue to monitor.
[2020-03-18] MEDS: Mag Hydrox/Al Hydrox/Simeth 30 ML UDC PO (16:57)
--- NOTE | 2020-03-18 18:38 | NURSING ---
while getting ready to take pt to CT scan of abd/pelvis, pt began vomiting yellow liquid mod amt. zofran given. pt denies abd pain at this time, states it goes away when I throw up.
--- NOTE | 2020-03-18 19:30 | NURSING ---
Pt taken to CT via bed
--- NOTE | 2020-03-18 21:45 | NURSING ---
TC from radiology requesting to have Dr call them with critical report findings, TC to Dr Vanessa and notified, TC from DR Vanessa and orders to have pt taken to ER for Eval for lg bowel obstruction, pt notified, requested I notify daughter, pt taken toER via bed, Daughter notified
== END 2020-03-18 22:00 | disposition short-term general hospital (02) | DRG 641 ==
PROVIDERS: Admitting Provider Family Medicine Geriatric Medicine; PCP Family Medicine; Visit Provider Family Medicine Geriatric Medicine
DX: E87.1 Hypo-osmolality and hyponatremia (principal); R56.9 Unspecified convulsions; I25.10 Atherosclerotic heart disease of native coronary artery without angina pectoris; E55.9 Vitamin D deficiency, unspecified; J44.9 Chronic obstructive pulmonary disease, unspecified; M35.3 Polymyalgia rheumatica; N18.2 Chronic kidney disease, stage 2 (mild); I12.9 Hypertensive chronic kidney disease with stage 1 through stage 4 chronic kidney disease, or unspecified chronic kidney disease; K21.9 Gastro-esophageal reflux disease without esophagitis; I27.20 Pulmonary hypertension, unspecified; G47.33 Obstructive sleep apnea (adult) (pediatric); E78.5 Hyperlipidemia, unspecified; M19.90 Unspecified osteoarthritis, unspecified site; I25.2 Old myocardial infarction; E87.6 Hypokalemia; I70.1 Atherosclerosis of renal artery; Z87.891 Personal history of nicotine dependence
CPT/HCPCS: 36415; 74018; 80048; 83735; 85014; 85018; 85025; 97110; 97116; 97162; 97166; 97530; 97535; 97802

== ENCOUNTER 2020-03-18 21:46 | Inpatient (IN) | payer MEDICARE, OTHER, SELFPAY ==
[2020-03-18 21:48] VITALS: BP 173/89; PULSE 16; RESP 91; TEMP 36.6; O2SAT 95; BMI 37.4
[2020-03-18 22:16] LABS: Absolute Lymphocyte Count 0.44 X10^3/uL (0.83-4.51); Absolute Neutrophil Count 11.8 X10^3/uL (2.0-7.7); Basophil# 0.05 X10^3/uL; Basophil% 0.4 % (0-1); Eosinophil# 0.03 X10^3/uL; Eosinophils% 0.2 % (0-5); Hematocrit 33.5 % (37-47); Hemoglobin 10.2 g/dL (12.0-15.0); Lymphocyte # 0.44 X10^3/ul (4.0); Lymphocyte % 3.3 % (19-41); Mean Corp Hgb Conc 30.4 g/dL (32-36); Mean Corpuscular Hgb 29.1 pg (27.0-32.0); Mean Corpuscular Volume 95.7 fL (81-99); Mean Platelet Vol. 9.9 fl (6.2-12.0); Monocyte# 1.13 X10^3/uL; Monocyte% 8.4 % (0-10); NRBC Flagged by Analyzer 0 % (0-5); Neutrophil # 11.77 X10^3/uL (2.7-7.7); POSITIVE DIFFERENTIAL YES; Platelet Count 264 K/mm3 (150-450); RBC Distribution Width CV 14.1 % (11.6-14.6); RBC Distribution Width SD 49.4 fl (35.1-43.9); White Blood Count 13.5 K/mm3 (4.4-11.0)
[2020-03-18] MEDS: HYDROmorphone 1 MG/ML Syringe IV (22:20)
[2020-03-18] MEDS: Ondansetron 4 MG/2 ML Vial IV (22:24)
[2020-03-18 22:25] LABS: Differential Indicated SCAN CRITERIA MET
[2020-03-18 22:33] LABS: International Normalized Ratio 1.1; Prothrombin Time (Protime)PT. 13.4 SECONDS (11.7-14.9)
[2020-03-18 22:34] LABS: ALB/GLOB Ratio 0.7 RATIO (0.9-2.4); AST(SGOT) 20 U/L (15-37); Alanine Aminotransfer ALT/SGPT 16 U/L (13-56); Albumin, Serum 2.6 g/dL (3.2-5.0); Alkaline Phosphatase 92 U/L (45-117); Anion Gap 7 (5-15); BUN 12 mg/dL (7-18); BUN/Creat Ratio 14.7 RATIO (10-20); Calcium,Total 8.3 mg/dL (8.5-10.1); Chloride 105 mmol/L (98-107); Creatinine, Serum 0.81 mg/dL (0.55-1.02); EST Glomerular Filtration Rate 72 mL/min (>60); Est Glom Filt Rate - Afr Amer 87 mL/min (>60); Globulin 3.9 g/dL (2.2-4.2); Glucose 129 mg/dL (74-106); Lipase 18 U/L (73-393); Partial Thromboplast Time 28.9 Seconds (24.1-36.2); Potassium 4.2 mmol/L (3.5-5.1); Protein, Total 6.5 g/dL (6.4-8.2); Sodium Level 138 mmol/L (136-145)
[2020-03-18 22:55] LABS: Differential Comment SCANNED
[2020-03-18 23:09] LABS: Lactic Acid 0.7 mmol/L (0.4-1.9)
--- NOTE | 2020-03-18 23:37 | PCM.HP.STD ---
Problem List (1) Large bowel obstruction Status: Acute (2) Colitis Status: Acute (3) Polymyalgia rheumatica Status: Chronic (4) Hypertension Status: Chronic Qualifiers: Hypertension type: essential hypertension Qualified Code(s): I10 - Essential (primary) hypertension (5) Chronic kidney disease, stage 2 (mild) Status: Chronic (6) GERD (gastroesophageal reflux disease) Status: Chronic Qualifiers: Esophagitis presence: esophagitis presence not specified Qualified Code(s): K21.9 - Gastro-esophageal reflux disease without esophagitis (7) Coronary artery disease Status: Chronic Qualifiers: Coronary Disease-Associated Artery/Lesion type: unspecified vessel or lesion type Platinum vs. transplanted heart: unspecified whether [place] or transplanted heart Associated angina: angina presence unspecified Qualified Code(s): I25.10 - Atherosclerotic heart disease of [place] coronary artery without angina pectoris (8) Seizure Status: Chronic (9) COPD (chronic obstructive pulmonary disease) Status: Chronic Qualifiers: COPD type: unspecified COPD (10) AILYN (obstructive sleep apnea) Status: Chronic Comment: AHI 115 and titrated to nasal CPAP 14 cm of water (11) Atherosclerotic heart disease of [place] coronary artery without angina pectoris Status: Chronic Qualifiers: (12) Carotid stenosis Status: Chronic Qualifiers: Laterality: unspecified laterality Qualified Code(s): I65.29 - Occlusion and stenosis of unspecified carotid artery (13) Renal artery stenosis Status: Chronic (14) HLD (hyperlipidemia) Status: Chronic Qualifiers: Hyperlipidemia type: unspecified History of Present Illness Date of Admission: 03/18/20 Chief Complaint: Abdominal pain The patient is a 79 y/o F w/ PMHx: AILYN on CPAP q HS, Chronic COPD, CKD stage II, GERD, CAD, Pulmonary HTN, PAD, Carotid artery stenosis, Hx renal artery stenosis, HTN, HLD, Chronic lymphedema, PMR, Frequent episodes noted for colitis/diverticulitis recently discharged to TCU on 02/20/20 following treatment for severe sepsis, colitis and cystitis who re-presented following rapid response to TCU on 03/04/20 with seizure activity with electrolyte disturbances who now re-presents to the [facility] ED on 03/18/20 with onset worsening abdominal pain, sharp and cramping, 5/10 upon ED presentation but has been up to 03/17 with nausea and emesis, last BM 2 days prior with decreased flatus. She recently had a failed c-scope, noted he was only able to get up into the distal colon. Work-up in the ED included T 97.9, heart rate 16, BP 173/89, r 95% on room air, CBC with WC 13.5, hemoglobin 10.2, platelet 264 with left shift with concurrent lymphopenia, unremarkable coags, CMP with glucose 129 otherwise not marked appearing, lactic acid 0.7, lipase 18, 03/18/2020 KUB with a nonobstructive bowel gas pattern with follow-up CT abdomen and pelvis noting a partial large bowel obstruction with transition in the sigmoid colon and proximal colitis still evident. In the ED patient ministered Zosyn, Zofran and Dilaudid. Past Medical History Past Medical History (Chronic Problems): Chronic Problems (Last Reviewed 02/20/20 @ 20:[address] Cesar Chandra MD) Cystitis (Chronic) Polymyalgia rheumatica (Chronic) Fall (Chronic) Pancolitis (Chronic) Diarrhea (Chronic) Ileus (Chronic) Lymphedema (Chronic) Hypertension (Chronic) Chronic kidney disease, stage 2 (mild) (Chronic) GERD (gastroesophageal reflux disease) (Chronic) Coronary artery disease (Chronic) Seizure (Chronic) BMI 36.0-36.9,adult (Chronic) Pulmonary hypertension (Chronic) RVSP 55 COPD (chronic obstructive pulmonary disease) (Chronic) AILYN (obstructive sleep apnea) (Chronic) AHI 115 and titrated to nasal CPAP 14 cm of water Atherosclerotic heart disease of [place] coronary artery without angina pectoris (Chronic) Chronic renal insufficiency, stage II (mild) (Chronic) Hyperglycemia, unspecified (Chronic) Carotid stenosis (Chronic) Renal artery stenosis (Chronic) HLD (hyperlipidemia) (Chronic) Benign essential hypertension (Chronic) Medical History: Medical History (Last Reviewed 02/20/20 @ 20:[address] Cesar Chandra MD) Atherosclerotic heart disease of [place] coronary artery without angina pectoris (Chronic) I25.10 Acute respiratory failure with hypoxia (Inactive) J96.01 Right lower lobe pneumonia (Inactive) J18.1 Sinus tachycardia by electrocardiogram (Inactive) R00.0 Chronic renal insufficiency, stage II (mild) (Chronic) N18.2 Hyperglycemia, unspecified (Chronic) R73.9 Carotid stenosis (Chronic) I65.29 Renal artery stenosis (Chronic) I70.1 HLD (hyperlipidemia) (Chronic) E78.5 Benign essential hypertension (Chronic) I10 Acute kidney insufficiency N28.9 NSTEMI (non-ST elevated myocardial infarction) I21.4 Barretts esophagus K22.70 Cerebrovascular disease I67.9 Former smoker, stopped smoking many years ago Z87.891 History of bleeding peptic ulcer Z87.11 Osteoarthritis Dehydration (Resolved) E86.0 Pneumonia J18.9 Severe sepsis A41.9, R65.20 Allergies gabapentin Allergy (Verified 03/18/20 21:54) Unknown nortriptyline Allergy (Verified 03/18/20 21:54) Unknown rofecoxib [From Vioxx] Allergy (Verified 03/18/20 21:54) Unknown tacrolimus Allergy (Verified 03/18/20 21:54) Unknown ciprofloxacin Adverse Reaction (Severe, Verified 03/18/20 21:54) seizure seizure metronidazole Adverse Reaction (Severe, Verified 03/18/20 21:54) seizure morphine Adverse Reaction (Verified 03/18/20 21:54) Nausea Home Medications: Ambulatory Orders Medication Instructions Recorded Acetaminophen Liquid [Tylenol 1,000 mg PO Q6H PRN udc 03/15/20 Liquid] Amlodipine [Norvasc] 2.5 mg PO DAILY tab 03/15/20 Aspirin [Aspirin, Baby] 81 mg PO DAILY@0800 tab.chew 03/15/20 Calcium Carbonate [Tums] 1,000 mg PO BIDCM tab 03/15/20 Calcium Carbonate [Tums] 500 mg PO Q4H PRN PRN tab 03/15/20 Carvedilol [Coreg (Beta Gertrudis)] 25 mg PO BID tab 03/15/20 Cholecalciferol (VIT D3) [Vitamin 2,000 unit PO DAILYCM tab 03/15/20 D3] Clopidogrel Bisulfate [Plavix] 75 mg PO DAILY tab 03/15/20 Iron Polysaccharide Complex 150 mg PO DAILYCM cap 03/15/20 [Ferrex 150] Leflunomide 20 mg PO DAILY tab 03/15/20 Loperamide [Imodium] 2 mg PO Q4H PRN PRN cap 03/15/20 Losartan Potassium [Cozaar] 100 mg PO DAILY tab 03/15/20 Magnesium Oxide 400 mg PO BID #60 tab 03/15/20 Menthol/Lanolin/Calamine/Znox 1 applic TOPICAL BID tube 03/15/20 [Calmoseptine Ointment] Pantoprazole Sodium [Protonix] 40 mg PO DAILY tab 03/15/20 Potassium Chloride [K-Dur] 20 meq PO TIDCM tab 03/15/20 Pravastatin [Pravachol] 20 mg PO QHS tab 03/15/20 levETIRAcetam tablet [Keppra 500 mg PO BID tab 03/15/20 tablet] Surgical History: Surgical History (Last Reviewed 02/20/20 @ 20:[address] Cesar Chandra MD) H/O carotid endarterectomy Z98.890 History of cholecystectomy Z90.49 History of hysterectomy Z90.710 History of left hip replacement Z96.642 History of total right knee replacement Z96.651 Surgical History: appendectomy, cholecystectomy, hysterectomy, total hip arthroplasty - Left., total knee arthroplasty - Right., - - Exploratory laparotomy, carotid endarterectomy. 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 Cesar Chandra MD) Mother Cancer Father Emphysema of lung Aunt Cancer Grandfather Vascular disease Grandmother Diabetes Brother Cancer History Items: Pulmonary Disease Maternal Family History: Family History (Last Reviewed 02/20/20 @ 20:[address] Cesar Chandra MD) Mother Cancer Father Emphysema of lung Aunt Cancer Grandfather Vascular disease Grandmother Diabetes Brother Cancer History Items: Cancer Review of Systems Constitutional: Reports: Anorexia, Malaise, Weakness, Fatigue. Denies: Chills, Fever, Weight Change HEENT: Denies: Head Aches, Sinus Congestion, Sinus Drainage Cardiovascular: Denies: Chest Pain, Palpitations Respiratory: Denies: Cough, Shortness of breath at rest, Sputum production Gastrointestinal: Reports: Abdominal Pain, Nausea, Vomiting Genitourinary: Denies: Dysuria Musculoskeletal: Reports: Joint Pain. Denies: Joint Tenderness Skin: Denies: Rash, Wounds Neurological: Reports: - - Recent admission for seizure activity, none since.. Denies: Focal weakness, Numbness, Tingling Psychiatric: Denies: Anxiety, Depression, Homicidal Ideations, Suicidal Ideations Hematologic/ Lymphatic: Reports: Anemia, Easy Bruising, Easy Bleeding VTE Information - Inpt Only VTE Present on Admission: No VTE Mechan Device Prophylaxis: SCD's VTE Pharm Prophylaxis ordered?: Yes Patient Problems: Active and Suspected Problems (Last Reviewed 02/20/20 @ 20:[address] Cesar Chandra MD) Large bowel obstruction (Acute) Subjective: Patient seated upright in ED bed, fatigued and uncomfortable appearing. Objective: Physical Examination: General: awake but extremely fatigued, falling asleep, alert when discussing but as noted easily falling asleep, notes fatigue, oriented x 3 and cooperative one request made, seated upright in the ED bed, notes pain improved but still uncomfortable. Skin: normal color, turgor, no icterus, cyanosis. HEENT: AT/NC, EOMI, PERRLA, dry MM, no carotid bruits or JVD noted. Lungs: CTA bilaterally, moderate effort, moderate decrease BL bases, no rales, ronchi or wheezing. Heart: Regular rate and rhythm; no gallop, rub audible. Abdomen: soft, diffusely tender to palpation, worse bilateral lower quadrant, left greater than right, distended but not tense, bowel sounds present in bilateral upper quadrants but absent in bilateral lower quadrants, difficult to assess HSM secondary to acute presentation and habitus. Extremities: no cyanosis, clubbing, bilateral ankle to distal tobar edema present. Neurological: patient awake, alert, oriented as noted; cognitive function intact but fatigued; pupils equally reactive to light and accomodation; cranial nerves II-XII grossly normal, moving all 4 extremities, no focal deficits, strength moderately to severely global decrease secondary to acute presentation. Psychiatric: affect appears fatigued, mildly uncomfortable, no acute evidence of depressive or anxiety feelings. - Physical Exam Vitals/I&O's: Vital Signs Temp Pulse Resp BP Pulse Ox 97.9 F 16 L 91 H 173/89 H 95 03/18/20 21:48 03/18/20 21:48 03/18/20 21:48 03/18/20 21:48 03/18/20 21:48 Oxygen Delivery Method Room Air Weight: 197 lb 15.602 oz Body Mass Index (BMI) 37.4 Finger Stick Blood Glucose 135 Laboratory Results 03/18/20 22:06: WBC 13.5 H, RBC 3.50 L, Hgb 10.2 L, Hct 33.5 L, MCV 95.7, MCH 29.1, MCHC 30.4 L, RDW Std Deviation 49.4 H, RDW Coeff of [place] 14.1, Plt Count 264, MPV 9.9, Immature Gran % (Auto) 0.700, Neut % (Auto) 87.0 H, Lymph % (Auto) 3.3 L, [place] % (Auto) 8.4, Eos % (Auto) 0.2, Baso % (Auto) 0.4, Absolute Neuts (auto) 11.8 H, Absolute Lymphs (auto) 0.44 L, Nucleated RBC % 0, Differential Comment SCANNED 03/18/20 22:06: PT 13.4, INR 1.1, APTT 28.9 03/18/20 22:06: Sodium 138, Potassium 4.2, Chloride 105, Carbon Dioxide 26.0, Anion Gap 7, BUN 12, Creatinine 0.81, Estim Creat Clear Calc 42.50, Est GFR (MDRD) Af Amer 87, Est GFR (MDRD) Non-Af 72, BUN/Creatinine Ratio 14.7, Glucose 129 H, Calcium 8.3 L, Total Bilirubin 0.40, AST 20, ALT 16, Alkaline Phosphatase 92, Total Protein 6.5, Albumin 2.6 L, Globulin 3.9, Albumin/Globulin Ratio 0.7 L, Lipase 18 L 03/18/20 22:35: Lactic Acid 0.7 Assessment/Plan All Active Problems (Last Reviewed 02/20/20 @ 20:[address] Cesar Chandra MD) Colitis (Acute) Generalized weakness (Acute) Debility (Acute) Hypomagnesemia (Acute) Hyponatremia (Acute) Large bowel obstruction (Acute) Dehydration (Resolved) The patient is a 79 y/o F w/ PMHx: AILYN on CPAP q HS, Chronic COPD, CKD stage II, GERD, CAD, Pulmonary HTN, PAD, Carotid artery stenosis, Hx renal artery stenosis, HTN, HLD, Chronic lymphedema, PMR, Frequent episodes noted for colitis/diverticulitis recently discharged to TCU on 02/20/20 following treatment for severe sepsis, colitis and cystitis who re-presented following rapid response to TCU on 03/04/20 with seizure activity with electrolyte disturbances who now re-presents to the [facility] ED on 03/18/20 with onset worsening abdominal pain, sharp and cramping. 1. Abdominal pain, nausea, emesis w/ Partial Large Bowel Obstruction with proximal Colitis: 03/18/2020 KUB with a nonobstructive bowel gas pattern with follow-up CT abdomen and pelvis noting a partial large bowel obstruction with transition in the sigmoid colon and proximal colitis still evident. Will admit to [facility], maintain on IVFs, strict I&Os, IV pain/anti-emetics PRN, serial KUB as needed to montior bowel function, PPI IV, maintain NPO on bowel rest, continue IV zosyn given ? colitis. General surgery consulted, pending. Had recent c-scope attempt that was unsuccessful, may need repeat attempt with more aggressive prep but defer to surgery. 2. CAD: Temporarily holding aspirin, transitioning to IV Vasotec and Lopressor, holding oral statin. 3. Carotid artery disease, renal artery stenosis, PAD: Status post CEA, holding oral aspirin temporarily and if prolonged may need TX but given acute presentation defer, transition to IV Vasotec and Lopressor, holding oral statin. 4. Seizure disorder: We will transition patient to Keppra 500 mg IV twice daily given hold on oral medications given acute presentation. 5. Hypertension: Holding oral regimen, will maintain on low-dose scheduled Vasotec and Lopressor with hold parameters. 6. Hyperlipidemia: Holding home statin therapy. 7. Chronic COPD: Not on regimen, encourage head of bed, I-S, PRN albuterol. 8. PMR: We will temporarily hold patient oral steroid regimen, low-dose and prolonged may necessitate IV regimen temporarily, holding leflunomide. 9. GERD: Maintain on IV PPI. 10. AILYN: Given current nausea and occasional emesis will defer CPAP until improved. 11. DVT prophylaxis: SCDs, Lovenox. 12. CODE STATUS: Full. Inpatient E&M: 84825 Init Hosp L3
[2020-03-18 23:47] VITALS: BP 101/61; PULSE 85; RESP 15; O2SAT 97
[2020-03-18 23:56] VITALS: BP 101/86; PULSE 85; RESP 17; TEMP 37; O2SAT 97
[2020-03-19] VITALS (32 sets, daily range): BP systolic 100–160; BP diastolic 61–109; PULSE 76–100; RESP 16–18; TEMP 36.3–37.7; O2SAT 92–100; BMI 35.9
[2020-03-19] MEDS: 0.9% Normal Saline 1,000 ML 100 ML IV ×3 (00:54→17:58)
[2020-03-19] MEDS: 0.9% Saline Lock 10 ML Syringe IV ×3 (00:54→11:33)
[2020-03-19] MEDS: HYDROmorphone 0.5 MG/0.5 ML SYRINGE IV ×4 (01:25→11:41)
--- NOTE | 2020-03-19 01:41 | ED.DCSUM_ITS ---
- ER Visit Summary Date of Service: 03/19/20 Chief Complaint: Abdominal pain History of Present Illness: The patient is a [address] Concepcion. She reports that she has abdominal pain that began 3 days ago. Is gradually gotten worse. Says sharp pain is 10 of 10 at worst and 5-10 currently. Is worsened by nothing. Is relieved by vomiting. But she is vomited 5 times in the past 24 hours. No blood in her emesis. Her last bowel was 2 days ago. Typically she goes daily. She said decreased flatus. She denies any dysuria frequency. Patient pressure is never had anything like this before. States that she has had a colonoscopy by Dr. Conner on February 26. She denies any other complaints. Physical Examination: Vitals: Stable. Afebrile. General: Well-nourished and well-developed. Head: Normocephalic atraumatic. Neck: Supple, no lymphadenopathy. No JVD. Nontender. Cardiovascular: Regular rate and rhythm. No murmurs. Respiratory: No respiratory distress. Clear to auscultation bilaterally. Abdominal: Soft, mild diffuse tenderness palpation, nondistended, normal bowel sounds. No guarding, rebound, or peritoneal signs. Back: Nontender. Extremities: Nontender, 1+ pitting edema lower extremities bilaterally. Skin: Normal color, no rash. Neurologic: Alert and oriented ?3. Cranial nerves II through XII are intact. Normal strength and sensation. Psych: Normal affect. Test Results: CBC shows a white count of 13.5 with 87 7 neutrophils and 3 lymphocytes. H&H 10.2 and 33.5. Chem-7 shows a glucose 129 calcium 8.3. Lactic acid is 0.7. LFTs show an albumin 2.6. Lipase is 18. Coags are normal. CT abdomen pelvis obtained on the TCU shows a partial large bowel obstruction with transition in the sigmoid colon and proximal colitis. Emergency Department Course and Treatment: Patient was given dose of Dilaudid and Zofran IV. She was given Zosyn IV as she has an allergy to fluoroquinolones. Treatment Plan: Patient was discussed with Dr. Bright. She will be admitted to hospital for further relation and treatment. Disposition: Admitted in improved condition. Impression: 1. Colitis. 2. Partial large bowel obstruction. This note was generated with [employer] software. It may contain incorrect words, spelling, and punctuation that were not noted in review of the chart prior to signing ED Disposition - Plan for ED Patient: Disposition: Acute Care Hospital [facility]
[2020-03-19 02:02] LABS: Magnesium 2.4 mg/dL (1.6-2.6)
[2020-03-19] MEDS: Metoprolol Tartrate 5 MG/5 ML Vial IV ×2 (06:05→21:03)
[2020-03-19 06:09] LABS: Absolute Neutrophil Count 8.6 X10^3/uL (2.0-7.7); Basophil# 0.03 X10^3/uL; Basophil% 0.3 % (0-1); Eosinophil# 0.09 X10^3/uL; Eosinophils% 0.9 % (0-5); Hematocrit 31.3 % (37-47); Hemoglobin 9.4 g/dL (12.0-15.0); Lymphocyte % 4.8 % (19-41); Mean Corpuscular Hgb 29.4 pg (27.0-32.0); Mean Corpuscular Volume 97.8 fL (81-99); Monocyte# 1.11 X10^3/uL; Monocyte% 10.7 % (0-10); NRBC Flagged by Analyzer 0 % (0-5); Neutrophil # 8.59 X10^3/uL (2.7-7.7); Neutrophil % 82.8 % (47-70); POSITIVE DIFFERENTIAL YES; Platelet Count 218 K/mm3 (150-450); RBC Distribution Width SD 50.3 fl (35.1-43.9); White Blood Count 10.4 K/mm3 (4.4-11.0)
[2020-03-19 06:15] LABS: Differential Indicated SCAN CRITERIA MET
[2020-03-19 06:33] LABS: Differential Comment SCANNED
[2020-03-19 06:36] LABS: ALB/GLOB Ratio 0.7 RATIO (0.9-2.4); AST(SGOT) 17 U/L (15-37); Alanine Aminotransfer ALT/SGPT 14 U/L (13-56); Albumin, Serum 2.3 g/dL (3.2-5.0); Alkaline Phosphatase 98 U/L (45-117); Anion Gap 5 (5-15); BUN 14 mg/dL (7-18); BUN/Creat Ratio 16.1 RATIO (10-20); Calcium,Total 7.7 mg/dL (8.5-10.1); Chloride 107 mmol/L (98-107); Creatinine, Serum 0.87 mg/dL (0.55-1.02); EST Glomerular Filtration Rate 67 mL/min (>60); Est Glom Filt Rate - Afr Amer 81 mL/min (>60); Estimated Creatinine Clearance 39.57 ml/min; Globulin 3.1 g/dL (2.2-4.2); Glucose 101 mg/dL (74-106); Potassium 3.9 mmol/L (3.5-5.1); Protein, Total 5.4 g/dL (6.4-8.2); Sodium Level 139 mmol/L (136-145)
--- NOTE | 2020-03-19 08:25 | PCM.CONS.GEN ---
Problem List (1) Obstruction of colon Status: Acute (2) Colitis Status: Acute Reason for Consult Date of Consultation: 03/19/20 Reason for Consultation: Colonic obstruction History of Present Illness: The patient is a 79 year old F who was transferred to the emergency room from the TCU yesterday. Patient says that she started having abdominal pain and vomiting yesterday. She said she has been having scant bowel movements and minimal flatus. She has diffuse abdominal pain. Past Medical History Past Medical History (Chronic Problems): Chronic Problems (Last Reviewed 02/20/20 @ 20:[address] 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 Cesar Chandra MD) Atherosclerotic heart disease of [place] coronary artery without angina pectoris (Chronic) I25.10 Acute respiratory failure with hypoxia (Inactive) J96.01 Right lower lobe pneumonia (Inactive) J18.1 Sinus tachycardia by electrocardiogram (Inactive) R00.0 Chronic renal insufficiency, stage II (mild) (Chronic) N18.2 Hyperglycemia, unspecified (Chronic) R73.9 Carotid stenosis (Chronic) I65.29 Renal artery stenosis (Chronic) I70.1 HLD (hyperlipidemia) (Chronic) E78.5 Benign essential hypertension (Chronic) I10 Acute kidney insufficiency N28.9 NSTEMI (non-ST elevated myocardial infarction) I21.4 Barretts esophagus K22.70 Cerebrovascular disease I67.9 Former smoker, stopped smoking many years ago Z87.891 History of bleeding peptic ulcer Z87.11 Osteoarthritis Dehydration (Resolved) E86.0 Pneumonia J18.9 Severe sepsis A41.9, R65.20 Allergies gabapentin Allergy (Verified 03/18/20 21:54) Unknown nortriptyline Allergy (Verified 03/18/20 21:54) Unknown rofecoxib [From Vioxx] Allergy (Verified 03/18/20 21:54) Unknown tacrolimus Allergy (Verified 03/18/20 21:54) Unknown ciprofloxacin Adverse Reaction (Severe, Verified 03/18/20 21:54) seizure seizure metronidazole Adverse Reaction (Severe, Verified 03/18/20 21:54) seizure morphine Adverse Reaction (Verified 03/18/20 21:54) Nausea Home Medications: Ambulatory Orders Medication Instructions Recorded Acetaminophen Liquid [Tylenol 1,000 mg PO Q6H PRN udc 03/15/20 Liquid] Amlodipine [Norvasc] 2.5 mg PO DAILY tab 03/15/20 Aspirin [Aspirin, Baby] 81 mg PO DAILY@0800 tab.chew 03/15/20 Calcium Carbonate [Tums] 1,000 mg PO BIDCM tab 03/15/20 Calcium Carbonate [Tums] 500 mg PO Q4H PRN PRN tab 03/15/20 Carvedilol [Coreg (Beta Gertrudis)] 25 mg PO BID tab 03/15/20 Cholecalciferol (VIT D3) [Vitamin 2,000 unit PO DAILYCM tab 03/15/20 D3] Clopidogrel Bisulfate [Plavix] 75 mg PO DAILY tab 03/15/20 Iron Polysaccharide Complex 150 mg PO DAILYCM cap 03/15/20 [Ferrex 150] Leflunomide 20 mg PO DAILY tab 03/15/20 Loperamide [Imodium] 2 mg PO Q4H PRN PRN cap 03/15/20 Losartan Potassium [Cozaar] 100 mg PO DAILY tab 03/15/20 Magnesium Oxide 400 mg PO BID #60 tab 03/15/20 Menthol/Lanolin/Calamine/Znox 1 applic TOPICAL BID tube 03/15/20 [Calmoseptine Ointment] Pantoprazole Sodium [Protonix] 40 mg PO DAILY tab 03/15/20 Pravastatin [Pravachol] 20 mg PO QHS tab 03/15/20 levETIRAcetam tablet [Keppra 500 mg PO BID tab 03/15/20 tablet] Potassium Chloride 20 meq PO BID 03/19/20 Surgical History: Surgical History (Last Reviewed 02/20/20 @ 20:[address] Cesar Chandra MD) H/O carotid endarterectomy Z98.890 History of cholecystectomy Z90.49 History of hysterectomy Z90.710 History of left hip replacement Z96.642 History of total right knee replacement Z96.651 Surgical History: appendectomy, cholecystectomy, hysterectomy, total hip arthroplasty - Left., total knee arthroplasty - Right., - - Exploratory laparotomy, carotid endarterectomy. 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 Cesar Chandra MD) Mother Cancer Father Emphysema of lung Aunt Cancer Grandfather Vascular disease Grandmother Diabetes Brother Cancer History Items: Pulmonary Disease Maternal Family History: Family History (Last Reviewed 02/20/20 @ 20:[address] Cesar Chandra MD) Mother Cancer Father Emphysema of lung Aunt Cancer Grandfather Vascular disease Grandmother Diabetes Brother Cancer History Items: Cancer Review of Systems Constitutional: Reports: Anorexia. Denies: Chills, Fever HEENT: Denies: Difficulty Swallowing Cardiovascular: Denies: Chest Pain Respiratory: Denies: Cough Gastrointestinal: Reports: Abdominal Pain, Constipation, Nausea, Vomiting Genitourinary: Denies: Dysuria Musculoskeletal: Denies: Joint Tenderness Skin: Denies: Jaundice Neurological: Denies: Balance problems Hematologic/ Lymphatic: Reports: Easy Bleeding. Denies: Anemia Patient Problems: Active and Suspected Problems (Last Reviewed 02/20/20 @ 20:[address] Cesar Chandra MD) Large bowel obstruction (Acute) Obstruction of colon (Acute) - Physical Exam Vitals/I&O's: Vital Signs Temp Pulse Resp BP Pulse Ox 98.8 F 84 18 100/64 95 03/19/20 08:00 03/19/20 08:00 03/19/20 08:00 03/19/20 08:00 03/19/20 08:00 Oxygen Flow Rate (L/min) 3 Oxygen Delivery Method Room Air Weight: 190 lb 0.615 oz Body Mass Index (BMI) 35.9 Finger Stick Blood Glucose 135 Intake and Output for Last 24 Hours 03/17/20 03/18/20 03/19/20 23:59 23:59 23:59 Intake Total 100 / 100 0.25 / 0.25 Output Total 0 / 0 Balance 100 / 100 0.25 / 0.25 General: Alert, Oriented x3 Neck: No JVD Cardiovascular: Regular rate, Regular Rhythm Abdomen: Soft, Distended, Tender Extremities: No clubbing Musculoskeletal: No Muscle Wasting Neurological: Cranial nerves II-XII grossly intact Psych/Mental Status: Normal Affect Laboratory Results 03/18/20 22:06: WBC 13.5 H, RBC 3.50 L, Hgb 10.2 L, Hct 33.5 L, MCV 95.7, MCH 29.1, MCHC 30.4 L, RDW Std Deviation 49.4 H, RDW Coeff of [place] 14.1, Plt Count 264, MPV 9.9, Immature Gran % (Auto) 0.700, Neut % (Auto) 87.0 H, Lymph % (Auto) 3.3 L, Routt % (Auto) 8.4, Eos % (Auto) 0.2, Baso % (Auto) 0.4, Absolute Neuts (auto) 11.8 H, Absolute Lymphs (auto) 0.44 L, Nucleated RBC % 0, Differential Comment SCANNED 03/18/20 22:06: PT 13.4, INR 1.1, APTT 28.9 03/18/20 22:06: Sodium 138, Potassium 4.2, Chloride 105, Carbon Dioxide 26.0, Anion Gap 7, BUN 12, Creatinine 0.81, Estim Creat Clear Calc 42.50, Est GFR (MDRD) Af Amer 87, Est GFR (MDRD) Non-Af 72, BUN/Creatinine Ratio 14.7, Glucose 129 H, Calcium 8.3 L, Total Bilirubin 0.40, AST 20, ALT 16, Alkaline Phosphatase 92, Total Protein 6.5, Albumin 2.6 L, Globulin 3.9, Albumin/Globulin Ratio 0.7 L, Lipase 18 L 03/18/20 22:06: Magnesium 2.4 03/18/20 22:35: Lactic Acid 0.7 03/19/20 05:20: WBC 10.4, RBC 3.20 L, Hgb 9.4 L, Hct 31.3 L, MCV 97.8, MCH 29.4, MCHC 30.0 L, RDW Std Deviation 50.3 H, RDW Coeff of [place] 14.0, Plt Count 218, MPV 10.0, Immature Gran % (Auto) 0.500, Neut % (Auto) 82.8 H, Lymph % (Auto) 4.8 L, Routt % (Auto) 10.7 H, Eos % (Auto) 0.9, Baso % (Auto) 0.3, Absolute Neuts (auto) 8.6 H, Absolute Lymphs (auto) 0.50 L, Nucleated RBC % 0, Differential Comment SCANNED 03/19/20 05:20: Sodium 139, Potassium 3.9, Chloride 107, Carbon Dioxide 27.0, Anion Gap 5, BUN 14, Creatinine 0.87, Estim Creat Clear Calc 39.57, Est GFR (MDRD) Af Amer 81, Est GFR (MDRD) Non-Af 67, BUN/Creatinine Ratio 16.1, Glucose 101, Calcium 7.7 L, Total Bilirubin 0.40, AST 17, ALT 14, Alkaline Phosphatase 98, Total Protein 5.4 L, Albumin 2.3 L, Globulin 3.1, Albumin/Globulin Ratio 0.7 L 03/19/20 08:00: Blood Type Pending 03/19/20 08:00: Levetiracetam Pending Current Medications Acetaminophen (Tylenol) 650 mg RECTAL Q4H PRN PRN PRN Reason: Pain Score 1-10/Temp > 100.7 F Albuterol Sulfate (Ventolin Aerosols) 2.5 mg INHALATION Q2H PRN PRN PRN Reason: Dyspnea, wheezing Calamine/Phenol (Calmoseptine Ointment) 1 applic TOPICAL BID YEHUDA; Protocol Enalaprilat (Vasotec) 0.625 mg IV Q6 [facility] Last Admin: 03/19/20 05:51 Dose: Not Given Documented by: Hydromorphone HCl (Dilaudid Inj) 0.5 mg IV Q3H PRN PRN PRN Reason: Pain Score 6-10 Last Admin: 03/19/20 06:26 Dose: 0.5 mg Documented by: Sodium Chloride () 1,000 mls @ 100 mls/hr IV .Q10H YEHUDA Last Admin: 03/19/20 00:54 Dose: 100 mls/hr Documented by: Piperacillin Sod/Tazobactam (Sod 3.375 gm/ Sodium Chloride) 50 mls @ 12.5 mls/hr IV Q8 [facility] Last Admin: 03/19/20 06:01 Dose: 12.5 mls/hr Documented by: Pantoprazole Sodium 40 mg/ (Sodium Chloride) 110 mls @ 330 mls/hr IV Q12 YEHUDA Levetiracetam 500 mg/ Sodium (Chloride) 105 mls @ 400 mls/hr IV Q12 YEHUDA Sodium Chloride () 250 mls @ 15 mls/hr IV .[id number] PRN PRN Reason: Saline Flush Last Infusion: 03/19/20 06:27 Dose: 0 mls/hr Documented by: Metoprolol Tartrate (Lopressor (Beta Gertrudis)) 5 mg IV Q8 [facility] Last Admin: 03/19/20 06:05 Dose: 5 mg Documented by: Nitroglycerin (Nitrostat) 0.4 mg SUBLINGUAL Q5M PRN PRN Reason: CARDIAC/CHEST PAIN Ondansetron HCl (Zofran) 4 mg IV Q8H PRN PRN PRN Reason: NAUSEA/VOMITING Prochlorperazine Edisylate (Compazine Iv) 5 mg IV Q4H PRN PRN PRN Reason: Breakthrough nausea/vomiting Sodium Chloride () 10 - 40 ml IV UD PRN PRN Reason: SALINE FLUSH Last Admin: 03/19/20 00:54 Dose: 10 ml Documented by: Assessment/Plan All Active Problems (Last Reviewed 02/20/20 @ 20:[address] Cesar Chandra MD) Colitis (Acute) Generalized weakness (Acute) Debility (Acute) Hypomagnesemia (Acute) Hyponatremia (Acute) Large bowel obstruction (Acute) Obstruction of colon (Acute) Dehydration (Resolved) 79-year-old female with colonic obstruction 1. The patient was recently admitted to the TCU with colitis. She had a colonoscopy which was unsuccessful and a subsequent barium enema which showed thickening in the sigmoid colon. She had not been eating much and having very scant bowel movements with minimal flatus for the past few days and yesterday started having abdominal pain with nausea and vomiting. Patient had a CT scan which showed a very distended colon up until the point of sigmoid thickening with a decompressed rectum signifying that she is at least partially obstructed. 2. The plan is to have radiology perform a Gastrografin enema this morning to see if we can get any Gastrografin through the strictured area to loosen up the stool and allow for a bowel prep. If nothing goes upward or if nothing is able to pass then I would recommend taking her for a laparotomy with sigmoid colectomy and end colostomy. If Gastrografin is able to break up the impacted stool and allow for passage of stool I would be able to perform a bowel prep and perform a laparoscopic sigmoid colectomy with attempted anastomosis. 3. Patient has been on Plavix and received a dose of Plavix yesterday morning. I am ordering platelets for her to transfuse during surgery. 4. Continue antibiotics and PPI as well as n.p.o. status with IV fluids. Plan for surgery today if Gastrografin is unsuccessful. 5. I discussed surgery with her in detail. I discussed the risks of the surgery including not limited to bleeding, infection, injury to surrounding organs such as the bladder, ureter, bowels. Patient understands the risks and that if bowel prep is unsuccessful the plan will be for a colostomy placement. I did discuss that this was unlikely to be reversible. I also discussed her blood thinners with her and platelet transfusion. The patient understands and is willing to proceed with surgery as needed. David Cortez MD Pager: [facility] [address] [place] [address] [address] [place] [address] Office:
--- NOTE | 2020-03-19 09:00 | RAD_ITS ---
STUDY: THERAPEUTIC GASTROGRAFIN ENEMA. REASON FOR EXAM: Female, 79 years old. Colon obstruction, gastrografin enema attempted, all of the contrast immediately came back out FLUOROSCOPY TIME (if supplied): ( 35 seconds ) minutes/seconds. 6 images were obtained. TECHNIQUE: GASTROGRAFIN was introduced retrograde through the rectum. The patient was unable to hold the GASTROGRAFIN. COMPARISON: None. FINDINGS: A consumer electronics merchandiser film was obtained. Contrast is seen within the urinary bladder from recent CT scan of the abdomen. There is a mild degree of small bowel dilatation. The rectosigmoid colon was opacified. There is evidence of scattered sigmoid diverticula. The patient was unable to withstand the pressure from the enema. There is evidence of retrograde obstruction. RAD/Therapeutic Enema IMPRESSION: Retrograde obstruction to the flow of GASTROGRAFIN at the level of the sigmoid colon where there is evidence of sigmoid diverticulosis.. Electronically Signed: Pradip Davison, at 9:30 EDT , Service support ,
--- NOTE | 2020-03-19 09:04 | NURSING ---
Left lower quadrant marked for stoma per Dr Cortez's request. plan is for Carl procedure with end colostomy. had pt sit at edge of bed to assess abdominal folds. marked abdomen just below pant line maing sure it is at least 3 fingerbreadths away from the umbilicus. pt denies further needs at this time.
--- NOTE | 2020-03-19 10:03 | PN_ITS ---
Progress Note Contrast was unable to be passed per radiology. None of the Gastrografin was able to make it proximal to the stricture. Plan on proceeding with sigmoid colectomy with end colostomy once platelets arrive. David Cortez MD Pager: [facility] [address] [place] [address], [address] [place] [address] Office: [facility]OKE Vital Signs/Narrative: Vital Signs Temp Pulse Resp BP Pulse Ox 03/19/20 08:04 83 03/19/20 08:00 98.8 F 84 18 100/64 95 03/19/20 06:23 98.3 F 79 16 116/66 93 03/19/20 06:15 98.3 F 76 16 119/61 92 03/19/20 06:05 86 142/73 H
[2020-03-19] MEDS: Enalaprilat 1.25 MG/ML Vial 0.625 MG IV ×3 (11:33→23:27)
--- NOTE | 2020-03-19 12:35 | PN_ITS ---
<HuangJody FORM COVERER - Last Filed: 03/19/20 12:46> Patient Problems: Active and Suspected Problems (Last Reviewed 02/20/20 @ 20:[address] Cesar henao MD) Large bowel obstruction (Acute) Obstruction of colon (Acute) Subjective: Patient seen and examined. Underwent Gastrografin enema this morning which showed retrograde obstruction to the flow of Gastrografin at the level of the sigmoid colon secondary to stricture. Plan for sigmoid colectomy later today. Patient complains of abdominal pain. Denies nausea, vomiting currently. Denies questions or concerns regarding plan of care. - Physical Exam Vitals/I&O's: Vital Signs Temp Pulse Resp BP Pulse Ox 98.5 F 87 18 136/70 H 94 03/19/20 11:28 03/19/20 11:28 03/19/20 11:28 03/19/20 11:28 03/19/20 11:28 Oxygen Flow Rate (L/min) 3 Oxygen Delivery Method Room Air Weight: 190 lb 0.615 oz Body Mass Index (BMI) 35.9 Finger Stick Blood Glucose 135 Intake and Output for Last 24 Hours 03/17/20 03/18/20 03/19/20 23:59 23:59 23:59 Intake Total 100 / 100 1089.42 / 1089.42 Output Total 0 / 0 Balance 100 / 100 1089.42 / 1089.42 General: Alert, Oriented x3, Cooperative HEENT: Atraumatic, PERRLA, EOMI, Normocephalic Neck: Supple, No JVD, Negative Carotid Bruits Lungs: Clear to auscultation, Normal air movement Cardiovascular: Regular rate, No murmurs Abdomen: Bowel Sounds Present, Soft, Distended, Tender Extremities: No clubbing, No cyanosis, No edema, Capillary Refill Less than 3 Seconds Skin: No rashes, No breakdown Musculoskeletal: No Tenderness to Palpation of Joints or Extremities Neurological: Cranial nerves II-XII grossly intact, Neuro grossly intact Psych/Mental Status: Normal Affect, Appropriate Laboratory Results 03/18/20 22:06: WBC 13.5 H, RBC 3.50 L, Hgb 10.2 L, Hct 33.5 L, MCV 95.7, MCH 29.1, MCHC 30.4 L, RDW Std Deviation 49.4 H, RDW Coeff of Blaine 14.1, Plt Count 264, MPV 9.9, Immature Gran % (Auto) 0.700, Neut % (Auto) 87.0 H, Lymph % (Auto) 3.3 L, [place] % (Auto) 8.4, Eos % (Auto) 0.2, Baso % (Auto) 0.4, Absolute Neuts (auto) 11.8 H, Absolute Lymphs (auto) 0.44 L, Nucleated RBC % 0, Differential Comment SCANNED 03/18/20 22:06: PT 13.4, INR 1.1, APTT 28.9 03/18/20 22:06: Sodium 138, Potassium 4.2, Chloride 105, Carbon Dioxide 26.0, Anion Gap 7, BUN 12, Creatinine 0.81, Estim Creat Clear Calc 42.50, Est GFR (MDRD) Af Amer 87, Est GFR (MDRD) Non-Af 72, BUN/Creatinine Ratio 14.7, Glucose 129 H, Calcium 8.3 L, Total Bilirubin 0.40, AST 20, ALT 16, Alkaline Phosphatase 92, Total Protein 6.5, Albumin 2.6 L, Globulin 3.9, Albumin/Globulin Ratio 0.7 L , Lipase 18 L 03/18/20 22:06: Magnesium 2.4 03/18/20 22:35: Lactic Acid 0.7 03/19/20 05:20: WBC 10.4, RBC 3.20 L, Hgb 9.4 L, Hct 31.3 L, MCV 97.8, MCH 29.4, MCHC 30.0 L, RDW Std Deviation 50.3 H, RDW Coeff of Blaine 14.0, Plt Count 218, MPV 10.0, Immature Gran % (Auto) 0.500, Neut % (Auto) 82.8 H, Lymph % (Auto) 4.8 L, [place] % (Auto) 10.7 H, Eos % (Auto) 0.9, Baso % (Auto) 0.3, Absolute Neuts (auto) 8.6 H, Absolute Lymphs (auto) 0.50 L, Nucleated RBC % 0, Differential Comment SCANNED 03/19/20 05:20: Sodium 139, Potassium 3.9, Chloride 107, Carbon Dioxide 27.0, Anion Gap 5, BUN 14, Creatinine 0.87, Estim Creat Clear Calc 39.57, Est GFR (MDRD) Af Amer 81, Est GFR (MDRD) Non-Af 67, BUN/Creatinine Ratio 16.1, Glucose 101, Calcium 7.7 L, Total Bilirubin 0.40, AST 17, ALT 14, Alkaline Phosphatase 98, Total Protein 5.4 L, Albumin 2.3 L, Globulin 3.1, Albumin/Globulin Ratio 0.7 L 03/19/20 08:00: Blood Type A NEGATIVE 03/19/20 08:00: Levetiracetam Pending Current Medications Acetaminophen (Tylenol) 650 mg RECTAL Q4H PRN PRN PRN Reason: Pain Score 1-10/Temp > 100.7 F Albuterol Sulfate (Ventolin Aerosols) 2.5 mg INHALATION Q2H PRN PRN PRN Reason: Dyspnea, wheezing Calamine/Phenol (Calmoseptine Ointment) 1 applic TOPICAL BID [facility] [place]; Protocol Last Admin: 03/19/20 10:10 Dose: Not Given Documented by: Enalaprilat (Vasotec) 0.625 mg IV Q6 [facility] [place] Last Admin: 03/19/20 11:33 Dose: 0.625 mg Documented by: Hydromorphone HCl (Dilaudid Inj) 0.5 mg IV Q3H PRN PRN PRN Reason: Pain Score 6-10 Last Admin: 03/19/20 11:41 Dose: 0.5 mg Documented by: Sodium Chloride () 1,000 mls @ 100 mls/hr IV .Q10H YEHUDA Last Admin: 03/19/20 10:10 Dose: 100 mls/hr Documented by: Piperacillin Sod/Tazobactam (Sod 3.375 gm/ Sodium Chloride) 50 mls @ 12.5 mls/hr IV Q8 [facility] Last Infusion: 03/19/20 11:15 Dose: Infused Documented by: Pantoprazole Sodium 40 mg/ (Sodium Chloride) 110 mls @ 330 mls/hr IV Q12 YEHU[facility] Last Admin: 03/19/20 12:10 Dose: 330 mls/hr Documented by: Levetiracetam 500 mg/ Sodium (Chloride) 105 mls @ 400 mls/hr IV Q12 [facility] Last Infusion: 03/19/20 12:09 Dose: Infused Documented by: Sodium Chloride () 250 mls @ 15 mls/hr IV .[id number] PRN PRN Reason: Saline Flush Last Infusion: 03/19/20 11:45 Dose: 0 mls/hr Documented by: Metoprolol Tartrate (Lopressor (Beta Gertrudis)) 5 mg IV Q8 YEHUDA Last Admin: 03/19/20 06:05 Dose: 5 mg Documented by: Nitroglycerin (Nitrostat) 0.4 mg SUBLINGUAL Q5M PRN PRN Reason: CARDIAC/CHEST PAIN Ondansetron HCl (Zofran) 4 mg IV Q8H PRN PRN PRN Reason: NAUSEA/VOMITING Prochlorperazine Edisylate (Compazine Iv) 5 mg IV Q4H PRN PRN PRN Reason: Breakthrough nausea/vomiting Sodium Chloride () 10 - 40 ml IV UD PRN PRN Reason: SALINE FLUSH Last Admin: 03/19/20 11:33 Dose: 10 ml Documented by: Medical Necessity - Tobacco Use Smoking Status: Former smoker Tobacco Use: Non-smoker Assessment/Plan All Active Problems (Last Reviewed 02/20/20 @ 20:[address] Cesar Chandra MD) Colitis (Acute) Generalized weakness (Acute) Debility (Acute) Hypomagnesemia (Acute) Hyponatremia (Acute) Large bowel obstruction (Acute) Obstruction of colon (Acute) Dehydration (Resolved) 1. Partial large bowel obstruction with proximal colitis-General surgery following. Patient underwent Gastrografin enema which demonstrated retrograde obstruction of Gastrografin at the level of the sigmoid colon. Plan for sigmoid colectomy with end colostomy later today. Continue IV Zosyn. As needed pain and antiemetic regimen. 2. CAD-on aspirin, statin, Plavix, beta-gertrudis. Regimen on hold secondary to #1. 3. Carotid artery stenosis/renal artery stenosis/PAD-status post carotid endarterectomy. Aspirin, statin on hold. 4. Seizure disorder-on Keppra. 5. Hypertension-on amlodipine, carvedilol, losartan. Transitioned to IV given n.p.o. 6. Hyperlipidemia-continue statin. 7. Chronic COPD-as needed albuterol aerosol. 8. Polymyalgia rheumatica-steroid regimen on hold. 9. GERD-continue PPI. 10. AILYN-continue CPAP. DVT prophylaxis-SCDs This patient was seen by Jody Huang, FORM COVERER-C under the supervision of Dr. Burton. <Waleska Burton - Last Filed: 03/19/20 14:57> Subjective: Pt states that she is going to OR soon. Pain is overall controlled. OR at 12 per nsg. No sig flatus or BM. - Physical Exam Vitals/I&O's: Vital Signs Temp Pulse Resp BP Pulse Ox 99.8 F H 86 16 129/67 H 93 03/19/20 13:11 03/19/20 13:11 03/19/20 13:11 03/19/20 13:11 03/19/20 13:11 Oxygen Flow Rate (L/min) 3 Oxygen Delivery Method Room Air Weight: 86.2 kg Body Mass Index (BMI) 35.9 Finger Stick Blood Glucose 135 Intake and Output for Last 24 Hours 03/17/20 03/18/20 03/19/20 23:59 23:59 23:59 Intake Total 100 / 100 1199.42 / 1199.42 Output Total 0 / 0 Balance 100 / 100 1199.42 / 1199.42 General: Alert, Oriented x3, Cooperative, Well developed, Well nourished, - - older WF lying in bed, calm and pleasant HEENT: Atraumatic, PERRLA, EOMI, Normocephalic, EAC Clear Oral: Moist Mucosa Neck: Supple, Trachea Midline, Thyroid Normal Size and Texture Lungs: Clear to auscultation, Normal air movement, No rhonchi, No wheeze, No rales Cardiovascular: Regular rate, Regular Rhythm, Normal S1, Normal S2, No murmurs, No Ectopic Activity, No rub noted, No Gallop Abdomen: Soft, Hypoactive Bowel Sounds, Distended, Tender - diffuse Extremities: No clubbing, No cyanosis, No edema, Capillary Refill Less than 3 Seconds, Peripheral Pulses Normal Skin: No rashes, No breakdown Neurological: Cranial nerves II-XII grossly intact, Neuro grossly intact Psych/Mental Status: Normal Affect, Appropriate, Alert and oriented to time, place, person, mood and affect Laboratory Results 03/18/20 22:06: WBC 13.5 H, RBC 3.50 L, Hgb 10.2 L, Hct 33.5 L, MCV 95.7, MCH 29.1, MCHC 30.4 L, RDW Std Deviation 49.4 H, RDW Coeff of Blaine 14.1, Plt Count 264, MPV 9.9, Immature Gran % (Auto) 0.700, Neut % (Auto) 87.0 H, Lymph % (Auto) 3.3 L, [place] % (Auto) 8.4, Eos % (Auto) 0.2, Baso % (Auto) 0.4, Absolute Neuts (auto) 11.8 H, Absolute Lymphs (auto) 0.44 L, Nucleated RBC % 0, Differential Comment SCANNED 03/18/20 22:06: PT 13.4, INR 1.1, APTT 28.9 03/18/20 22:06: Sodium 138, Potassium 4.2, Chloride 105, Carbon Dioxide 26.0, Anion Gap 7, BUN 12, Creatinine 0.81, Estim Creat Clear Calc 42.50, Est GFR (MDRD) Af Amer 87, Est GFR (MDRD) Non-Af 72, BUN/Creatinine Ratio 14.7, Glucose 129 H, Calcium 8.3 L, Total Bilirubin 0.40, AST 20, ALT 16, Alkaline Phosphatase 92, Total Protein 6.5, Albumin 2.6 L, Globulin 3.9, Albumin/Globulin Ratio 0.7 L , Lipase 18 L 03/18/20 22:06: Magnesium 2.4 03/18/20 22:35: Lactic Acid 0.7 03/19/20 05:20: WBC 10.4, RBC 3.20 L, Hgb 9.4 L, Hct 31.3 L, MCV 97.8, MCH 29.4, MCHC 30.0 L, RDW Std Deviation 50.3 H, RDW Coeff of [place]aine 14.0, Plt Count 218, MPV 10.0, Immature Gran % (Auto) 0.500, Neut % (Auto) 82.8 H, Lymph % (Auto) 4.8 L, [place] % (Auto) 10.7 H, Eos % (Auto) 0.9, Baso % (Auto) 0.3, Absolute Neuts (auto) 8.6 H, Absolute Lymphs (auto) 0.50 L, Nucleated RBC % 0, Differential Comment SCANNED 03/19/20 05:20: Sodium 139, Potassium 3.9, Chloride 107, Carbon Dioxide 27.0, Anion Gap 5, BUN 14, Creatinine 0.87, Estim Creat Clear Calc 39.57, Est GFR (MDRD) Af Amer 81, Est GFR (MDRD) Non-Af 67, BUN/Creatinine Ratio 16.1, Glucose 101, Calcium 7.7 L, Total Bilirubin 0.40, AST 17, ALT 14, Alkaline Phosphatase 98, Total Protein 5.4 L, Albumin 2.3 L, Globulin 3.1, Albumin/Globulin Ratio 0.7 L 03/19/20 08:00: Blood Type A NEGATIVE 03/19/20 08:00: Levetiracetam Pending Current Medications Acetaminophen (Tylenol) 650 mg RECTAL Q4H PRN PRN PRN Reason: Pain Score 1-10/Temp > 100.7 F Albuterol Sulfate (Ventolin Aerosols) 2.5 mg INHALATION Q2H PRN PRN PRN Reason: Dyspnea, wheezing Calamine/Phenol (Calmoseptine Ointment) 1 applic TOPICAL BID [facility] [place]; Protocol Last Admin: 03/19/20 10:10 Dose: Not Given Documented by: Enalaprilat (Vasotec) 0.625 mg IV Q6 [facility] [place] Last Admin: 03/19/20 11:33 Dose: 0.625 mg Documented by: Hydromorphone HCl (Dilaudid Inj) 0.5 mg IV Q3H PRN PRN PRN Reason: Pain Score 6-10 Last Admin: 03/19/20 11:41 Dose: 0.5 mg Documented by: Sodium Chloride () 1,000 mls @ 100 mls/hr IV .Q10H [facility] [place] Last Admin: 03/19/20 10:10 Dose: 100 mls/hr Documented by: Piperacillin Sod/Tazobactam (Sod 3.375 gm/ Sodium Chloride) 50 mls @ 12.5 mls/hr IV Q8 [facility] [place] Last Infusion: 03/19/20 11:15 Dose: Infused Documented by: Pantoprazole Sodium 40 mg/ (Sodium Chloride) 110 mls @ 330 mls/hr IV Q12 [facility] Last Infusion: 03/19/20 13:16 Dose: Infused Documented by: Levetiracetam 500 mg/ Sodium (Chloride) 105 mls @ 400 mls/hr IV Q12 [facility] [place] Last Infusion: 03/19/20 12:09 Dose: Infused Documented by: Sodium Chloride () 250 mls @ 15 mls/hr IV .[id number] PRN PRN Reason: Saline Flush Last Infusion: 03/19/20 11:45 Dose: 0 mls/hr Documented by: Metoprolol Tartrate (Lopressor (Beta Gertrudis)) 5 mg IV Q8 [facility] Last Admin: 03/19/20 06:05 Dose: 5 mg Documented by: Nitroglycerin (Nitrostat) 0.4 mg SUBLINGUAL Q5M PRN PRN Reason: CARDIAC/CHEST PAIN Ondansetron HCl (Zofran) 4 mg IV Q8H PRN PRN PRN Reason: NAUSEA/VOMITING Prochlorperazine Edisylate (Compazine Iv) 5 mg IV Q4H PRN PRN PRN Reason: Breakthrough nausea/vomiting Sodium Chloride () 10 - 40 ml IV UD PRN PRN Reason: SALINE FLUSH Last Admin: 03/19/20 11:33 Dose: 10 ml Documented by: Assessment/Plan I agree with the above and the following reflects my own independent history and physical exam ASSESSMENT Partial Large Bowel Obstruction -suspected narrowing/stenosis Chronic Anemia CAD Carotid artery stenosis Renal artery stenosis PAD HTN HPL COPD PMR GERD/Nash's Esophagus/PUD AILYN Seizure disorder PLAN -with recent colitis will continue Zosyn -CT scan which showed a very distended colon up until the point of sigmoid thickening with a decompressed rectum signifying that she is at least partially obstructed -OR today per surgery -plts per GS with h/o plavix use -keppra level pending and on IV keppra at this time -IV PPI -VS remain stable -hgb stable -continue iv meds for BP -CBC and CMP in am Inpatient E&M: 59549 Subs Hosp L2
--- NOTE | 2020-03-19 13:25 | CASEMGMT ---
Social Work Note Pt is from TCU. Racquel in TCU states pt was supposed to discharge from TCU on 03/21/2020. Racquel states if pt wishes to return to TCU at discharge, TCU is able to accept pt back. Racquel states pt will not need COVID test to return. SW attempted to meet with pt. Pt off floor at this time. SW will attempt to meet with pt at a later time. Rola Coombs IT SECURITY ENGINEER, SPONGE DIVER
--- NOTE | 2020-03-19 13:30 | COL._PTH ---
PATIENT: NIGEL GARCIA LOC: MS3 U#:[id number] AGE/SX: 79/F ROOM: MS306 RE03/18/[address]: Dr. Waleska Burton DO : 1940 BED: 1 DIS: 03/22/2020 SPEC #: [id number] RECD: 03/20/20 07:25 STATUS: JACKIE BROOK #: [id number] RAFAEL: 03/19/20 13:[address]: David Cortez DEPT: SURGICAL PATHOLOGY RECD BY: Nino Basurto ENTERED: 03/20/20 08:26 SP TYPE: COLON OTHR DR: MD Dr. Nicolas Justice MD Dr. Kathryn Lee, DO Tissues: Colon, NOS Procedures: Surgery Specimen Level HEADER OPERATION: Sigmoid resection, colostomy PRE-OP DIAGNOSIS: Obstruction of colon TISSUE SUBMITTED: Distal sigmoid colon MICROSCOPIC DIAGNOSIS Distal sigmoid colon, colectomy: Diverticulosis and diverticulitis. See comment. SJ:james 03/21/20 COMMENT Case has been reviewed in consultation with Dr. Mcnair who concurs with the above diagnosis. IDC:AM MICROSCOPIC DESCRIPTION Slides are reviewed. GROSS DESCRIPTION Received in fixative is one container labeled with the patient's name and designated distal sigmoid colon. The specimen consists of a 3 cm segment of bowel with attached fibrofatty tissue. Serial sections reveal multiple diverticulum. Jtac sections are submitted in four cassettes. / AM:james 03/20/20 TC:5 CPT: 45741
--- NOTE | 2020-03-19 16:56 | PCM.OPRPT ---
Problem List (1) Obstruction of colon Status: Acute (2) Colitis Status: Acute Report of Operation Date of Procedure: 03/19/20 Pre-Operative Diagnosis: Colonic obstruction Post-Operative Diagnosis: Colonic obstruction due to diverticulitis and stricture Surgery/Procedure Performed:: Exploratory laparotomy with sigmoid colectomy and end colostomy Specimen's removed: Distal sigmoid colon Drains: CARLOS ENRIQUE to bulb suction Description of Procedure: Patient was brought back the operating room and general anesthesia was induced. A Velez catheter was placed. The abdomen was prepped and draped in usual sterile fashion. A midline incision was made from just above the umbilicus down to the pubic bone and deepened using electrocautery. The fascia was elevated and incised as was the peritoneum. Using a finger to protect the bowel the fascial incision was extended superiorly and inferiorly and the wound protector was placed. The patient had enlarged obstructed colon throughout. There was an area of sigmoid colon which is very inflamed and tightly adherent to the left pelvis. This was finger fractured free from the very tight adhesions. Next the colon just distal to the inflamed area was divided and sutured using 2-0 PDS sutures. The stapler was unable to reach this area. It was also inflamed. Next the white line of T[place]t was freed laterally until the splenic flexure was reached. The sigmoid mesentery was taken down until the noninflamed sigmoid was reached. Next a stoma site was chosen in the left abdomen and the skin was removed using electrocautery. [place]'s were used to dissect down to the fascia in the mid rectus location and the fascia was divided in a cruciate form and the muscle split and the posterior rectus sheath was opened. The opening was dilated using 2 fingers and the distal sigmoid colon was delivered through it. Next a drain was placed through the right lower quadrant into the pelvis and sutured to the skin using a 3-0 nylon suture. The abdomen was copiously irrigated and suctioned dry. There was good hemostasis and no leaking from the distal suture line. Next the fascia was closed in a continuous fashion from the top and bottom using #1 PDS suture meeting in the middle. The subcutaneous tissue was irrigated and suctioned dry and the skin was stapled closed. Next the inflamed area of the sigmoid colon was removed electrocautery and the ends of the colon were sutured to the skin at the stoma site. The stoma appeared viable. The stoma appliance was placed as well as dressings. The patient was taken to PACU in stable condition. Velez remained at the end of the case. - Admit VTE Documentation VTE Mechan Device Prophylaxis: SCD's
[2020-03-19] MEDS: HYDROmorphone 1 MG/ML Syringe IV ×2 (21:00→23:27)
[2020-03-19] MEDS: Menthol/Lanolin/Calamine/Znox 113 GM Tube 1 APPLIC TOPICAL (22:16)
[2020-03-20] VITALS (15 sets, daily range): BP systolic 86–137; BP diastolic 57–91; PULSE 87–97; RESP 16–18; TEMP 36.7–37.3; O2SAT 94–97; BMI 35.9
[2020-03-20] MEDS: 0.9% Normal Saline 1,000 ML 100 ML IV ×3 (01:45→22:38)
[2020-03-20] MEDS: HYDROmorphone 1 MG/ML Syringe IV ×4 (05:22→17:41)
[2020-03-20 06:20] LABS: Hematocrit 28.1 % (37-47); Hemoglobin 8.3 g/dL (12.0-15.0); Mean Corp Hgb Conc 29.5 g/dL (32-36); Mean Corpuscular Hgb 29.2 pg (27.0-32.0); Mean Corpuscular Volume 98.9 fL (81-99); Mean Platelet Vol. 9.4 fl (6.2-12.0); Platelet Count 207 K/mm3 (150-450); RBC Distribution Width CV 14.3 % (11.6-14.6); RBC Distribution Width SD 52.2 fl (35.1-43.9); Red Blood Count 2.84 M/mm3 (4.2-5.4); White Blood Count 12.9 K/mm3 (4.4-11.0)
[2020-03-20 07:03] LABS: ALB/GLOB Ratio 0.6 RATIO (0.9-2.4); AST(SGOT) 17 U/L (15-37); Alanine Aminotransfer ALT/SGPT 16 U/L (13-56); Albumin, Serum 1.8 g/dL (3.2-5.0); Alkaline Phosphatase 129 U/L (45-117); Anion Gap 7 (5-15); BUN 18 mg/dL (7-18); BUN/Creat Ratio 22.1 RATIO (10-20); Calcium,Total 6.6 mg/dL (8.5-10.1); Chloride 112 mmol/L (98-107); Creatinine, Serum 0.82 mg/dL (0.55-1.02); EST Glomerular Filtration Rate 72 mL/min (>60); Est Glom Filt Rate - Afr Amer 87 mL/min (>60); Estimated Creatinine Clearance 41.98 ml/min; Glucose 102 mg/dL (74-106); Potassium 4.1 mmol/L (3.5-5.1); Protein, Total 4.8 g/dL (6.4-8.2); Sodium Level 141 mmol/L (136-145)
--- NOTE | 2020-03-20 07:15 | PCM.PN.SRG ---
Patient Problems: Active and Suspected Problems (Last Reviewed 02/20/20 @ 20:[address] Cesar Chandra MD) Large bowel obstruction (Acute) Obstruction of colon (Acute) Subjective: Patient pain is well controlled. No nausea or vomiting overnight. - Physical Exam Vitals/I&O's: Vital Signs Temp Pulse Resp BP Pulse Ox 99.1 F 92 18 131/91 H 94 03/20/20 06:46 03/20/20 06:46 03/20/20 06:46 03/20/20 06:46 03/20/20 06:46 Oxygen Flow Rate (L/min) 1 Oxygen Delivery Method Nasal Cannula Weight: 190 lb 0.615 oz Body Mass Index (BMI) 35.9 Finger Stick Blood Glucose 135 Intake and Output for Last 24 Hours 03/18/20 03/19/20 03/20/20 23:59 23:59 23:59 Intake Total 100 / 100 2821.09 / 2821.09 395 / 395 Output Total 275 / 275 345 / 345 Balance 100 / 100 2546.09 / 2546.09 50 / 50 General: Alert, Oriented x3 Neck: No JVD Abdomen: Soft, Distended, - Laboratory Results 03/19/20 08:00: Blood Type A NEGATIVE 03/19/20 08:00: Levetiracetam Pending 03/20/20 06:00: WBC 12.9 H, RBC 2.84 L, Hgb 8.3 L, Hct 28.1 L, MCV 98.9, MCH 29.2, MCHC 29.5 L, RDW Std Deviation 52.2 H, RDW Coeff of Blaine 14.3, Plt Count 207, MPV 9.4 03/20/20 06:00: Sodium 141, Potassium 4.1, Chloride 112 H, Carbon Dioxide 22.0, Anion Gap 7, BUN 18, Creatinine 0.82, Estim Creat Clear Calc 41.98, Est GFR (MDRD) Af Amer 87, Est GFR (MDRD) Non-Af 72, BUN/Creatinine Ratio 22.1 H, Glucose 102, Calcium 6.6 L, Total Bilirubin 0.40, AST 17, ALT 16, Alkaline Phosphatase 129 H, Total Protein 4.8 L, Albumin 1.8 L, Globulin 3.0, Albumin/Globulin Ratio 0.6 L Current Medications Acetaminophen (Tylenol) 650 mg RECTAL Q4H PRN PRN PRN Reason: Pain Score 1-10/Temp > 100.7 F Albuterol Sulfate (Ventolin Aerosols) 2.5 mg INHALATION Q2H PRN PRN PRN Reason: Dyspnea, wheezing Calamine/Phenol (Calmoseptine Ointment) 1 applic TOPICAL BID [facility]; Protocol Last Admin: 03/19/20 22:16 Dose: 1 applic Documented by: Enalaprilat (Vasotec) 0.625 mg IV Q6 [facility] Last Admin: 03/20/20 05:47 Dose: Not Given Documented by: Hydromorphone HCl (Dilaudid Inj) 1 mg IV Q2H PRN PRN PRN Reason: Pain Score 4-10 Last Admin: 03/20/20 05:22 Dose: 1 mg Documented by: Sodium Chloride () 1,000 mls @ 100 mls/hr IV .Q10H [facility] Last Admin: 03/20/20 01:45 Dose: 100 mls/hr Documented by: Piperacillin Sod/Tazobactam (Sod 3.375 gm/ Sodium Chloride) 50 mls @ 12.5 mls/hr IV Q8 [facility] Last Admin: 03/20/20 05:48 Dose: 12.5 mls/hr Documented by: Pantoprazole Sodium 40 mg/ (Sodium Chloride) 110 mls @ 330 mls/hr IV Q12 [facility] Last Infusion: 03/19/20 21:54 Dose: Infused Documented by: Levetiracetam 500 mg/ Sodium (Chloride) 105 mls @ 400 mls/hr IV Q12 [facility] Last Infusion: 03/19/20 21:32 Dose: Infused Documented by: Sodium Chloride () 250 mls @ 15 mls/hr IV .[id number] PRN PRN Reason: Saline Flush Last Infusion: 03/19/20 11:45 Dose: 0 mls/hr Documented by: Sodium Chloride () 500 mls @ 999 mls/hr IV .Q31M ONE Stop: 03/20/20 07:20 Last Admin: 03/20/20 07:15 Dose: 999 mls/hr Documented by: Metoprolol Tartrate (Lopressor (Beta Gertrudis)) 5 mg IV Q8 [facility] Last Admin: 03/20/20 05:47 Dose: Not Given Documented by: Nitroglycerin (Nitrostat) 0.4 mg SUBLINGUAL Q5M PRN PRN Reason: CARDIAC/CHEST PAIN Ondansetron HCl (Zofran) 4 mg IV Q8H PRN PRN PRN Reason: NAUSEA/VOMITING Prochlorperazine Edisylate (Compazine Iv) 5 mg IV Q4H PRN PRN PRN Reason: Breakthrough nausea/vomiting Sodium Chloride () 10 - 40 ml IV UD PRN PRN Reason: SALINE FLUSH Last Admin: 03/19/20 11:33 Dose: 10 ml Documented by: Medical Necessity - Tobacco Use Smoking Status: Former smoker Tobacco Use: Non-smoker Assessment/Plan All Active Problems (Last Reviewed 02/20/20 @ 20:[address] Cesar Chandra MD) Colitis (Acute) Generalized weakness (Acute) Debility (Acute) Hypomagnesemia (Acute) Hyponatremia (Acute) Large bowel obstruction (Acute) Obstruction of colon (Acute) Dehydration (Resolved) 79-year-old female status post sigmoid resection and colostomy due to obstruction from stricture. 1. The patient is comfortable this morning. She is not having output from her colostomy yet. There is some liquid in the bag but no gas. The abdomen is still distended. Her CARLOS ENRIQUE put out about 75 200 cc of serosanguineous fluid. Her urine output was low and blood pressure is mildly decreased this morning. 2. I have given the patient 500 cc bolus of saline and I recommend keeping the Velez in place to monitor urine output. Continue to observe the colostomy for output before starting a diet. The stoma is pink on the medial edge and a little dusky on the lateral side. This is unchanged from yesterday. David Cortez MD Pager: [facility] [address] [place] [address], [address] [place] [address] Office:
--- NOTE | 2020-03-20 07:17 | NURSING ---
In to assess stoma with Dr Cortez. overall stoma is beefy red. there is an area of duskiness noted to the left lateral portion of the stoma. will monitor. no flatus noted in the appliance at this time. small amount of serosanguineous drainage noted in the appliance.
--- NOTE | 2020-03-20 09:04 | NURSING ---
small amount of stool noted in ostomy appliance. no flatus noted at this time.
[2020-03-20] MEDS: Ondansetron 4 MG/2 ML Vial IV ×2 (09:08→17:41)
--- NOTE | 2020-03-20 09:08 | NURSING ---
wound photo: abdomen
--- NOTE | 2020-03-20 09:08 | CASEMGMT ---
Addendum entered by Rola Coombs 03/20/20 10:37: TUNDE received call from Dilcia at [facility] stating since pt had surgery and will be coming with colostomy she is able to get lpta. TUNDE met with pt to discuss discharge plans. TUNDE introduced self and role at [facility]. Pt is alert and orientated x3. Pt confirms that she was going to discharge to [facility] from TCU and is agreeable to going to [facility] at discharge from [facility]. SW informed pt that [facility] will want lpta initially as she now has a colostomy and pt is agreeable to skilled. Pt agreeable to going to [facility] skilled and not back to TCU. TUNDE placed a call to [facility] in TCU and left message that pt will be going to [facility] at discharge. Pt not medically ready for discharge today. SW to continue to follow. Plan: [facility] skilled once medically cleared Rola Coombs MSW, PRINTING PRESS MACHINE OPERATOR Original Note: Social Work Note SW updated that pt was going to discharge to [facility] [place] from TCU and pt wishes to discharge there. TUNDE spoke with wound nurse, pt will have colostomy, pt should be able to do colostomy by herself. TUNDE placed a call to [facility] and left message for Dilcia in admissions regarding pt and if pt will be able to still come to [facility] or if pt will need skilled first. TUNDE waiting for call back. TUNDE faxed updated clinicals to [facility]. Rola Coombs MSW, PRINTING PRESS MACHINE OPERATOR
[2020-03-20] MEDS: Menthol/Lanolin/Calamine/Znox 113 GM Tube 1 APPLIC TOPICAL ×2 (10:39→22:34)
--- NOTE | 2020-03-20 10:51 | PN_ITS ---
<HuangJody ELEVATOR EXAMINER AND ADJUSTER - Last Filed: 03/20/20 11:02> Patient Problems: Active and Suspected Problems (Last Reviewed 02/20/20 @ 20:[address] Cesar henao MD) Large bowel obstruction (Acute) Obstruction of colon (Acute) Subjective: Patient seen and examined. Complains of nausea, denies emesis. Reports she continues to have abdominal pain although improved from yesterday. Some reddish liquid in colostomy bag. - Physical Exam Vitals/I&O's: Vital Signs Temp Pulse Resp BP Pulse Ox 99.1 F 92 18 131/91 H 94 03/20/20 06:46 03/20/20 06:46 03/20/20 06:46 03/20/20 06:46 03/20/20 07:16 Oxygen Flow Rate (L/min) 1 Oxygen Delivery Method Room Air Weight: 190 lb 0.615 oz Body Mass Index (BMI) 35.9 Finger Stick Blood Glucose 135 Intake and Output for Last 24 Hours 03/18/20 03/19/20 03/20/20 23:59 23:59 23:59 Intake Total 100 / 100 2821.09 / 2821.09 395 / 395 Output Total 275 / 275 345 / 345 Balance 100 / 100 2546.09 / 2546.09 50 / 50 General: Alert, Oriented x3, Cooperative HEENT: Atraumatic, PERRLA, EOMI, Normocephalic Neck: Supple, No JVD, Negative Carotid Bruits Lungs: Clear to auscultation, Normal air movement Cardiovascular: Regular rate, No murmurs Abdomen: Bowel Sounds Present, Soft, Distended, Tender, - - Colostomy bag and CARLOS ENRIQUE drain intact Extremities: No clubbing, No cyanosis, No edema Skin: No rashes Musculoskeletal: No Tenderness to Palpation of Joints or Extremities Neurological: Cranial nerves II-XII grossly intact, Neuro grossly intact Psych/Mental Status: Normal Affect, Appropriate Laboratory Results 03/19/20 08:00: Blood Type A NEGATIVE 03/20/20 06:00: WBC 12.9 H, RBC 2.84 L, Hgb 8.3 L, Hct 28.1 L, MCV 98.9, MCH 29.2, MCHC 29.5 L, RDW Std Deviation 52.2 H, RDW Coeff of Blaine 14.3, Plt Count 207, MPV 9.4 03/20/20 06:00: Sodium 141, Potassium 4.1, Chloride 112 H, Carbon Dioxide 22.0, Anion Gap 7, BUN 18, Creatinine 0.82, Estim Creat Clear Calc 41.98, Est GFR (MDRD) Af Amer 87, Est GFR (MDRD) Non-Af 72, BUN/Creatinine Ratio 22.1 H, Glucose 102, Calcium 6.6 L, Total Bilirubin 0.40, AST 17, ALT 16, Alkaline Phosphatase 129 H, Total Protein 4.8 L, Albumin 1.8 L, Globulin 3.0, Albumin/Globulin Ratio 0.6 L Current Medications Acetaminophen (Tylenol) 650 mg RECTAL Q4H PRN PRN PRN Reason: Pain Score 1-10/Temp > 100.7 F Albuterol Sulfate (Ventolin Aerosols) 2.5 mg INHALATION Q2H PRN PRN PRN Reason: Dyspnea, wheezing Calamine/Phenol (Calmoseptine Ointment) 1 applic TOPICAL BID [facility]; Protocol Last Admin: 03/20/20 10:39 Dose: 1 applic Documented by: Enalaprilat (Vasotec) 0.625 mg IV Q6 [facility] Last Admin: 03/20/20 05:47 Dose: Not Given Documented by: Hydromorphone HCl (Dilaudid Inj) 1 mg IV Q2H PRN PRN PRN Reason: Pain Score 4-10 Last Admin: 03/20/20 09:00 Dose: 1 mg Documented by: Sodium Chloride () 1,000 mls @ 100 mls/hr IV .Q10H [facility] Last Admin: 03/20/20 01:45 Dose: 100 mls/hr Documented by: Piperacillin Sod/Tazobactam (Sod 3.375 gm/ Sodium Chloride) 50 mls @ 12.5 mls/hr IV Q8 [facility] Last Admin: 03/20/20 05:48 Dose: 12.5 mls/hr Documented by: Pantoprazole Sodium 40 mg/ (Sodium Chloride) 110 mls @ 330 mls/hr IV Q12 [facility] Last Admin: 03/20/20 09:11 Dose: 330 mls/hr Documented by: Levetiracetam 500 mg/ Sodium (Chloride) 105 mls @ 400 mls/hr IV Q12 [facility] Last Infusion: 03/19/20 21:32 Dose: Infused Documented by: Sodium Chloride () 250 mls @ 15 mls/hr IV .[id number] PRN PRN Reason: Saline Flush Last Infusion: 03/19/20 11:45 Dose: 0 mls/hr Documented by: Calcium Gluconate 2 gm/ Sodium (Chloride) 120 mls @ 60 mls/hr IV X1 ONE Stop: 03/20/20 11:44 Last Admin: 03/20/20 10:38 Dose: 60 mls/hr Documented by: Lactated Ringer's () 1,000 mls @ 60 mls/hr IV .[id number] YEHUDA Metoprolol Tartrate (Lopressor (Beta Gertrudis)) 5 mg IV Q8 YEHUDA Last Admin: 03/20/20 05:47 Dose: Not Given Documented by: Nitroglycerin (Nitrostat) 0.4 mg SUBLINGUAL Q5M PRN PRN Reason: CARDIAC/CHEST PAIN Ondansetron HCl (Zofran) 4 mg IV Q8H PRN PRN PRN Reason: NAUSEA/VOMITING Last Admin: 03/20/20 09:08 Dose: 4 mg Documented by: Prochlorperazine Edisylate (Compazine Iv) 5 mg IV Q4H PRN PRN PRN Reason: Breakthrough nausea/vomiting Sodium Chloride () 10 - 40 ml IV UD PRN PRN Reason: SALINE FLUSH Last Admin: 03/19/20 11:33 Dose: 10 ml Documented by: Medical Necessity - Tobacco Use Smoking Status: Former smoker Tobacco Use: Non-smoker Assessment/Plan All Active Problems (Last Reviewed 02/20/20 @ 20:[address] Cesar Chandra MD) Colitis (Acute) Generalized weakness (Acute) Debility (Acute) Hypomagnesemia (Acute) Hyponatremia (Acute) Large bowel obstruction (Acute) Obstruction of colon (Acute) Dehydration (Resolved) 1. 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 Cortez-General surgery following. Per surgery, observe colostomy before initiating diet. As needed pain regimen. Continue IV Zosyn. 2. CAD-on aspirin, statin, Plavix, beta-gertrudis. Regimen on hold secondary to #1. Resume when okay per surgery. 3. Carotid artery stenosis/renal artery stenosis/PAD-status post carotid endarterectomy. Aspirin, statin on hold. 4. Seizure disorder-on Keppra. 5. Hypertension-on amlodipine, carvedilol, losartan. Transitioned to IV given n.p.o. 6. Hyperlipidemia-continue statin. 7. Chronic COPD-as needed albuterol aerosol. 8. Polymyalgia rheumatica-steroid regimen on hold. 9. GERD-continue PPI. 10. AILYN-continue CPAP. DVT prophylaxis-SCDs Discharge planning: SNF versus assisted living pending medically stabilized. This patient was seen by SUKHJINDER Baum under the supervision of Dr. Burton. <Waleska Burton - Last Filed: 03/20/20 14:37> Subjective: Pt states that her pain is controlled. Some nausea. Has stool (sm amts) in ostomy bag. - Physical Exam Vitals/I&O's: Vital Signs Temp Pulse Resp BP Pulse Ox 98.0 F 92 16 137/74 H 96 03/20/20 11:30 03/20/20 13:00 03/20/20 11:30 03/20/20 13:00 03/20/20 11:30 Oxygen Flow Rate (L/min) 1 Oxygen Delivery Method Room Air Weight: 86.2 kg Body Mass Index (BMI) 35.9 Finger Stick Blood Glucose 135 Intake and Output for Last 24 Hours 03/18/20 03/19/20 03/20/20 23:59 23:59 23:59 Intake Total 100 / 100 2821.09 / 2821.09 445 / 445 Output Total 275 / 275 385 / 385 Balance 100 / 100 2546.09 / 2546.09 60 / 60 General: Alert, Oriented x3, Cooperative, No apparent distress, Well developed, Well nourished HEENT: Atraumatic, Normocephalic Oral: Moist Mucosa Neck: Supple, Trachea Midline Lungs: Clear to auscultation, Normal air movement, No rhonchi, No wheeze, No rales Cardiovascular: Regular rate, Regular Rhythm, Normal S1, Normal S2, No murmurs, No Ectopic Activity, No rub noted, No Gallop Abdomen: Bowel Sounds Present, Soft, Tender - mild, - - Colostomy bag and CARLOS ENRIQUE drain intact, minimal serosanguinous fluid in bulb, midline incision with small area of serous drainage centrally Skin: No rashes Neurological: Cranial nerves II-XII grossly intact, Neuro grossly intact Psych/Mental Status: Normal Affect, Appropriate Laboratory Results 03/20/20 06:00: WBC 12.9 H, RBC 2.84 L, Hgb 8.3 L, Hct 28.1 L, MCV 98.9, MCH 29.2, MCHC 29.5 L, RDW Std Deviation 52.2 H, RDW Coeff of Blaine 14.3, Plt Count 207, MPV 9.4 03/20/20 06:00: Sodium 141, Potassium 4.1, Chloride 112 H, Carbon Dioxide 22.0, Anion Gap 7, BUN 18, Creatinine 0.82, Estim Creat Clear Calc 41.98, Est GFR (MDRD) Af Amer 87, Est GFR (MDRD) Non-Af 72, BUN/Creatinine Ratio 22.1 H, Glucose 102, Calcium 6.6 L, Total Bilirubin 0.40, AST 17, ALT 16, Alkaline Phosphatase 129 H, Total Protein 4.8 L, Albumin 1.8 L, Globulin 3.0, Albumin/Globulin Ratio 0.6 L Current Medications Acetaminophen (Tylenol) 650 mg RECTAL Q4H PRN PRN PRN Reason: Pain Score 1-10/Temp > 100.7 F Albuterol Sulfate (Ventolin Aerosols) 2.5 mg INHALATION Q2H PRN PRN PRN Reason: Dyspnea, wheezing Calamine/Phenol (Calmoseptine Ointment) 1 applic TOPICAL BID [facility]; Protocol Last Admin: 03/20/20 10:39 Dose: 1 applic Documented by: Enalaprilat (Vasotec) 0.625 mg IV Q6 [facility] Last Admin: 03/20/20 11:28 Dose: Not Given Documented by: Hydromorphone HCl (Dilaudid Inj) 1 mg IV Q2H PRN PRN PRN Reason: Pain Score 4-10 Last Admin: 03/20/20 13:13 Dose: 1 mg Documented by: Sodium Chloride () 1,000 mls @ 100 mls/hr IV .Q10H [facility] Last Admin: 03/20/20 01:45 Dose: 100 mls/hr Documented by: Piperacillin Sod/Tazobactam (Sod 3.375 gm/ Sodium Chloride) 50 mls @ 12.5 mls/hr IV Q8 [facility] Last Admin: 03/20/20 13:01 Dose: 12.5 mls/hr Documented by: Pantoprazole Sodium 40 mg/ (Sodium Chloride) 110 mls @ 330 mls/hr IV Q12 [facility] Last Admin: 03/20/20 09:11 Dose: 330 mls/hr Documented by: Levetiracetam 500 mg/ Sodium (Chloride) 105 mls @ 400 mls/hr IV Q12 [facility] Last Admin: 03/20/20 11:27 Dose: 400 mls/hr Documented by: Sodium Chloride () 250 mls @ 15 mls/hr IV .[id number] PRN PRN Reason: Saline Flush Last Infusion: 03/19/20 11:45 Dose: 0 mls/hr Documented by: Lactated Ringer's () 1,000 mls @ 60 mls/hr IV .[id number] YEHUDA Metoprolol Tartrate (Lopressor (Beta Gertrudis)) 5 mg IV Q8 [facility] Last Admin: 03/20/20 13:00 Dose: 5 mg Documented by: Nitroglycerin (Nitrostat) 0.4 mg SUBLINGUAL Q5M PRN PRN Reason: CARDIAC/CHEST PAIN Ondansetron HCl (Zofran) 4 mg IV Q8H PRN PRN PRN Reason: NAUSEA/VOMITING Last Admin: 03/20/20 09:08 Dose: 4 mg Documented by: Prochlorperazine Edisylate (Compazine Iv) 5 mg IV Q4H PRN PRN PRN Reason: Breakthrough nausea/vomiting Last Admin: 03/20/20 13:13 Dose: 5 mg Documented by: Sodium Chloride () 10 - 40 ml IV UD PRN PRN Reason: SALINE FLUSH Last Admin: 03/19/20 11:33 Dose: 10 ml Documented by: Assessment/Plan I agree with the above and the following reflects my own independent history and physical exam ASSESSMENT Partial Large Bowel Obstruction s/p ostomy -suspected narrowing/stenosis Low Nml BP Chronic Anemia CAD Carotid artery stenosis Renal artery stenosis PAD HTN HPL COPD PMR GERD/Nash's Esophagus/PUD AILYN Seizure disorder PLAN -continue Zosyn -BP responded to fluid bolus -ostomy with some output--> PO diet once ok per GS -Calcuim bolus 2 gm and check ICa in am -check am CBC and BMP with Mag -Keppra Level pending Inpatient E&M: 48352 Subs Hosp L2
[2020-03-20] MEDS: Metoprolol Tartrate 5 MG/5 ML Vial IV (13:00)
[2020-03-20] MEDS: proCHLORPERazine 10 MG/2 ML Vial 5 MG IV (13:13)
[2020-03-21] VITALS (11 sets, daily range): BP systolic 98–137; BP diastolic 61–67; PULSE 76–95; RESP 16–18; TEMP 36.4–37.2; O2SAT 94–98
[2020-03-21] MEDS: Enalaprilat 1.25 MG/ML Vial 0.625 MG IV ×2 (00:05→05:13)
[2020-03-21] MEDS: Metoprolol Tartrate 5 MG/5 ML Vial IV (05:12)
[2020-03-21] MEDS: HYDROmorphone 1 MG/ML Syringe IV (05:19)
[2020-03-21 06:08] LABS: Hematocrit 25.3 % (37-47); Hemoglobin 7.5 g/dL (12.0-15.0); Mean Corp Hgb Conc 29.6 g/dL (32-36); Mean Corpuscular Hgb 29.2 pg (27.0-32.0); Mean Corpuscular Volume 98.4 fL (81-99); Mean Platelet Vol. 9.6 fl (6.2-12.0); Platelet Count 201 K/mm3 (150-450); RBC Distribution Width CV 14.6 % (11.6-14.6); RBC Distribution Width SD 52.9 fl (35.1-43.9); Red Blood Count 2.57 M/mm3 (4.2-5.4); White Blood Count 11.6 K/mm3 (4.4-11.0)
[2020-03-21 06:34] LABS: Anion Gap 7 (5-15); BUN 20 mg/dL (7-18); BUN/Creat Ratio 26.6 RATIO (10-20); Calcium,Total 6.8 mg/dL (8.5-10.1); Chloride 115 mmol/L (98-107); Creatinine, Serum 0.75 mg/dL (0.55-1.02); EST Glomerular Filtration Rate 79 mL/min (>60); Est Glom Filt Rate - Afr Amer 96 mL/min (>60); Estimated Creatinine Clearance 34.42 ml/min; Glucose 96 mg/dL (74-106); Magnesium 2.4 mg/dL (1.6-2.6); Potassium 3.7 mmol/L (3.5-5.1); Sodium Level 144 mmol/L (136-145)
--- NOTE | 2020-03-21 07:39 | PCM.PN.SRG ---
Patient Problems: Active and Suspected Problems (Last Reviewed 02/20/20 @ 20:[address] Cesar Chandra MD) Large bowel obstruction (Acute) Obstruction of colon (Acute) Subjective: Patient reports no nausea overnight. Her abdominal pain was well controlled on minimal medication. - Physical Exam Vitals/I&O's: Vital Signs Temp Pulse Resp BP Pulse Ox 98.9 F 91 16 123/63 H 94 03/21/20 04:07 03/21/20 05:12 03/21/20 04:07 03/21/20 05:12 03/21/20 06:55 Oxygen Flow Rate (L/min) 1 Oxygen Delivery Method Room Air Weight: 190 lb 0.615 oz Body Mass Index (BMI) 35.9 Finger Stick Blood Glucose 135 Intake and Output for Last 24 Hours 03/19/20 03/20/20 03/21/20 23:59 23:59 23:59 Intake Total 2821.09 / 2821.09 3546.67 / 3546.67 / Output Total 275 / 275 555 / 910 815 / 815 Balance 2546.09 / 2546.09 2991.67 / 2636.67 -724 / -724 General: Alert, Oriented x3 Cardiovascular: Regular rate, Regular Rhythm Abdomen: Soft, Non Tender, Non-Distended Laboratory Results 03/21/20 05:45: Ionized Calcium Pending 03/21/20 05:45: WBC 11.6 H, RBC 2.57 L, Hgb 7.5 L, Hct 25.3 L, MCV 98.4, MCH 29.2, MCHC 29.6 L, RDW Std Deviation 52.9 H, RDW Coeff of Blaine 14.6, Plt Count 201, MPV 9.6 03/21/20 05:45: Sodium 144, Potassium 3.7, Chloride 115 H, Carbon Dioxide 22.0, Anion Gap 7, BUN 20 H, Creatinine 0.75, Estim Creat Clear Calc 34.42, Est GFR (MDRD) Af Amer 96, Est GFR (MDRD) Non-Af 79, BUN/Creatinine Ratio 26.6 H, Glucose 96, Calcium 6.8 L, Magnesium 2.4 Current Medications Acetaminophen (Tylenol) 650 mg RECTAL Q4H PRN PRN PRN Reason: Pain Score 1-10/Temp > 100.7 F Albuterol Sulfate (Ventolin Aerosols) 2.5 mg INHALATION Q2H PRN PRN PRN Reason: Dyspnea, wheezing Calamine/Phenol (Calmoseptine Ointment) 1 applic TOPICAL BID [facility]; Protocol Last Admin: 03/20/20 22:34 Dose: 1 applic Documented by: Enalaprilat (Vasotec) 0.625 mg IV Q6 YEHUDA Last Admin: 03/21/20 05:13 Dose: 0.625 mg Documented by: Hydromorphone HCl (Dilaudid Inj) 1 mg IV Q2H PRN PRN PRN Reason: Pain Score 4-10 Last Admin: 03/21/20 05:19 Dose: 1 mg Documented by: Sodium Chloride () 1,000 mls @ 100 mls/hr IV .Q10H YEHUDA Last Infusion: 03/20/20 23:10 Dose: 100 mls/hr Documented by: Piperacillin Sod/Tazobactam (Sod 3.375 gm/ Sodium Chloride) 50 mls @ 12.5 mls/hr IV Q8 [facility] Last Admin: 03/21/20 05:11 Dose: 12.5 mls/hr Documented by: Pantoprazole Sodium 40 mg/ (Sodium Chloride) 110 mls @ 330 mls/hr IV Q12 YEHUDA Last Infusion: 03/20/20 23:10 Dose: Infused Documented by: Levetiracetam 500 mg/ Sodium (Chloride) 105 mls @ 400 mls/hr IV Q12 YEHUDA Last Infusion: 03/20/20 22:42 Dose: Infused Documented by: Sodium Chloride () 250 mls @ 15 mls/hr IV .[id number] PRN PRN Reason: Saline Flush Last Infusion: 03/21/20 05:11 Dose: 0 mls/hr Documented by: Metoprolol Tartrate (Lopressor (Beta Gertrudis)) 5 mg IV Q8 YEHUDA Last Admin: 03/21/20 05:12 Dose: 5 mg Documented by: Nitroglycerin (Nitrostat) 0.4 mg SUBLINGUAL Q5M PRN PRN Reason: CARDIAC/CHEST PAIN Ondansetron HCl (Zofran) 4 mg IV Q8H PRN PRN PRN Reason: NAUSEA/VOMITING Last Admin: 03/20/20 17:41 Dose: 4 mg Documented by: Prochlorperazine Edisylate (Compazine Iv) 5 mg IV Q4H PRN PRN PRN Reason: Breakthrough nausea/vomiting Last Admin: 03/20/20 13:13 Dose: 5 mg Documented by: Sodium Chloride () 10 - 40 ml IV UD PRN PRN Reason: SALINE FLUSH Last Admin: 03/19/20 11:33 Dose: 10 ml Documented by: Medical Necessity - Tobacco Use Smoking Status: Former smoker Tobacco Use: Non-smoker Assessment/Plan All Active Problems (Last Reviewed 02/20/20 @ 20:[address] Cesar Chandra MD) Colitis (Acute) Generalized weakness (Acute) Debility (Acute) Hypomagnesemia (Acute) Hyponatremia (Acute) Large bowel obstruction (Acute) Obstruction of colon (Acute) Dehydration (Resolved) 79-year-old female status post sigmoid colostomy due to obstruction 1. The patient appears to be doing well this morning and she is having stool from her colostomy. I will advance her to a clear liquid diet. Her urine output was minimal but I am okay with the Velez being removed and if it is okay with the primary service and continue to monitor the urine output. Patient's hemoglobin is 7.5 today but she is 5 L positive for the stay and I believe this is dilutional. The drain is serous today. Continue the drain while she starts a diet. David Cortze MD Pager: [facility] [address] [place] [address], [address] [place] [address] Office:
--- NOTE | 2020-03-21 08:05 | NURSING ---
ostomy appliance intact with moderate amount of soft unformed brown stool. abdomen still slightly distended. pt denies nausea at this time. pt allowed clear liquids now. plan to change the ostomy appliance tomorrow. pt denies further needs at this time.
[2020-03-21] MEDS: levETIRAcetam 500 MG Tablet PO ×2 (09:44→21:17)
[2020-03-21] MEDS: Carvedilol 25 MG Tablet PO ×2 (09:45→16:47)
[2020-03-21] MEDS: amLODIPine 2.5 MG Tablet PO (09:45)
[2020-03-21] MEDS: Menthol/Lanolin/Calamine/Znox 113 GM Tube 1 APPLIC TOPICAL ×2 (09:46→21:18)
--- NOTE | 2020-03-21 10:56 | PCM.PROGNOTE ---
<Jody Encinas FOOD PRODUCTION MANAGER - Last Filed: 03/21/20 11:05> Patient Problems: Active and Suspected Problems (Last Reviewed 02/20/20 @ 20:[address] Cesar Chandra MD) Large bowel obstruction (Acute) Obstruction of colon (Acute) Subjective: Patient seen and examined. Feeling improved. Tolerating clear liquid diet. Reports improvement in abdominal pain. Having stool output from colostomy. - Physical Exam Vitals/I&O's: Vital Signs Temp Pulse Resp BP Pulse Ox 97.6 F L 88 18 126/61 H 98 03/21/20 09:37 03/21/20 09:37 03/21/20 09:37 03/21/20 09:37 03/21/20 09:37 Oxygen Flow Rate (L/min) 1 Oxygen Delivery Method Room Air Weight: 190 lb 0.615 oz Body Mass Index (BMI) 35.9 Finger Stick Blood Glucose 135 Intake and Output for Last 24 Hours 03/19/20 03/20/20 03/21/20 23:59 23:59 23:59 Intake Total 2821.09 / 2821.09 3546.67 / 3546.67 1246 / 1246 Output Total 275 / 275 555 / 910 815 / 815 Balance 2546.09 / 2546.09 2991.67 / 2636.67 431 / 431 General: Alert, Oriented x3, Cooperative HEENT: Atraumatic, PERRLA, EOMI, Normocephalic Neck: Supple, No JVD, Negative Carotid Bruits Lungs: Clear to auscultation, Normal air movement Cardiovascular: Regular rate, No murmurs Abdomen: Bowel Sounds Present, Soft, Tender, - - Colostomy and CARLOS ENRIQUE drain intact Extremities: No clubbing, No cyanosis, No edema, Capillary Refill Less than 3 Seconds Skin: No rashes, No breakdown Musculoskeletal: No Tenderness to Palpation of Joints or Extremities Neurological: Cranial nerves II-XII grossly intact, Neuro grossly intact Psych/Mental Status: Normal Affect, Appropriate Laboratory Results 03/21/20 05:45: Ionized Calcium Pending 03/21/20 05:45: WBC 11.6 H, RBC 2.57 L, Hgb 7.5 L, Hct 25.3 L, MCV 98.4, MCH 29.2, MCHC 29.6 L, RDW Std Deviation 52.9 H, RDW Coeff of Blaine 14.6, Plt Count 201, MPV 9.6 03/21/20 05:45: Sodium 144, Potassium 3.7, Chloride 115 H, Carbon Dioxide 22.0, Anion Gap 7, BUN 20 H, Creatinine 0.75, Estim Creat Clear Calc 34.42, Est GFR (MDRD) Af Amer 96, Est GFR (MDRD) Non-Af 79, BUN/Creatinine Ratio 26.6 H, Glucose 96, Calcium 6.8 L, Magnesium 2.4 Current Medications Acetaminophen (Acetaminophen 325 Mg Tablet) 650 mg PO Q6H PRN PRN PRN Reason: Elevated Temp/pain 1-5 Albuterol Sulfate (Ventolin Aerosols) 2.5 mg INHALATION Q2H PRN PRN PRN Reason: Dyspnea, wheezing Amlodipine Besylate (Amlodipine 2.5 Mg Tablet) 2.5 mg PO DAILY [facility] Last Admin: 03/21/20 09:45 Dose: 2.5 mg Documented by: Aspirin (Aspirin 81 Mg Tab.Chew) 81 mg PO DAILY@0800 [facility] Calamine/Phenol (Calmoseptine Ointment) 1 applic TOPICAL BID [facility]; Protocol Last Admin: 03/21/20 09:46 Dose: 1 applic Documented by: Carvedilol (Carvedilol 25 Mg Tablet) [facility] Last Admin: 03/21/20 09:45 Dose: 25 mg Documented by: Cholecalciferol (Cholecalciferol (Vit D3) 1,000 Unit (25mcg)) 2,000 [facility] Piperacillin Sod/Tazobactam (Sod 3.375 gm/ Sodium Chloride) 50 mls @ 12.5 mls/hr IV Q8 [facility] Last Infusion: 03/21/20 09:14 Dose: Infused Documented by: Sodium Chloride () 250 mls @ 15 mls/hr IV .[id number] PRN PRN Reason: Saline Flush Last Infusion: 03/21/20 05:11 Dose: 0 mls/hr Documented by: Calcium Gluconate 2 gm/ Sodium (Chloride) 120 mls @ 60 mls/hr IV X1 ONE Stop: 03/21/20 11:59 Leflunomide (Leflunomide 10 Mg Tablet) 20 mg PO DAILY [facility] Levetiracetam (Levetiracetam 500 Mg Tablet) 500 mg PO BID [facility] Last Admin: 03/21/20 09:44 Dose: 500 mg Documented by: Nitroglycerin (Nitrostat) 0.4 mg SUBLINGUAL Q5M PRN PRN Reason: CARDIAC/CHEST PAIN Ondansetron HCl (Zofran) 4 mg IV Q8H PRN PRN PRN Reason: NAUSEA/VOMITING Last Admin: 03/20/20 17:41 Dose: 4 mg Documented by: Oxycodone HCl (Oxycodone 5 Mg Tablet) 5 mg PO Q4H PRN PRN PRN Reason: Pain Score 6-10 Pantoprazole Sodium (Pantoprazole Sodium 40 Mg Tablet) 40 mg PO DAILY [facility] Polysaccharide Iron Complex (Iron Polysaccharide Complex 150 Mg Capsule) 150 mg PO DAILYCM [facility] Pravastatin Sodium (Pravastatin 20 Mg Tablet) 20 mg PO QHS [facility] Prochlorperazine Edisylate (Compazine Iv) 5 mg IV Q4H PRN PRN PRN Reason: Breakthrough nausea/vomiting Last Admin: 03/20/20 13:13 Dose: 5 mg Documented by: Sodium Chloride () 10 - 40 ml IV UD PRN PRN Reason: SALINE FLUSH Last Admin: 03/19/20 11:33 Dose: 10 ml Documented by: Medical Necessity - Tobacco Use Smoking Status: Former smoker Tobacco Use: Non-smoker Assessment/Plan All Active Problems (Last Reviewed 02/20/20 @ 20:[address] Cesar Chandra MD) Colitis (Acute) Generalized weakness (Acute) Debility (Acute) Hypomagnesemia (Acute) Hyponatremia (Acute) Large bowel obstruction (Acute) Obstruction of colon (Acute) Dehydration (Resolved) 1. 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 Cortez-General surgery following. Continue IV Zosyn. As needed pain regimen. Patient having colostomy output. Advanced to clear liquid diet. 2. CAD-on aspirin, statin, Plavix, beta-shlomo. Plavix on hold. 3. Carotid artery stenosis/renal artery stenosis/PAD-status post carotid endarterectomy. Continue aspirin, statin. 4. Seizure disorder-on Keppra. 5. Hypertension-on amlodipine, carvedilol, losartan. 6. Hyperlipidemia-continue statin. 7. Chronic COPD-as needed albuterol aerosol. 8. Polymyalgia rheumatica-steroid regimen on hold. 9. GERD-continue PPI. 10. AILYN-continue CPAP. 11. Acute on chronic normocytic anemia-trend CBC. DVT prophylaxis-SCDs Discharge planning: SNF at discharge when medically stable. This patient was seen by SUKHJINDER Bamu under the supervision of Dr. Burton. <Waleska Burton - Last Filed: 03/21/20 12:37> Subjective: Pt sitting up in a chair and talking on the phone. Appears comfortable. Not happy her bae was removed as she states that now she will have to get up to use the bathroom. Abd pain better and good ostomy output - Physical Exam Vitals/I&O's: Vital Signs Temp Pulse Resp BP Pulse Ox 97.6 F L 88 18 126/61 H 98 03/21/20 09:37 03/21/20 09:37 03/21/20 09:37 03/21/20 09:37 03/21/20 09:37 Oxygen Flow Rate (L/min) 1 Oxygen Delivery Method Room Air Weight: 86.2 kg Body Mass Index (BMI) 35.9 Finger Stick Blood Glucose 135 Intake and Output for Last 24 Hours 03/19/20 03/20/20 03/21/20 23:59 23:59 23:59 Intake Total 2821.09 / 2821.09 3546.67 / 3546.67 1646 / 1646 Output Total 275 / 275 555 / 910 915 / 915 Balance 2546.09 / 2546.09 2991.67 / 2636.67 731 / 731 General: Alert, Oriented x3, Cooperative, No apparent distress, Well developed, Well nourished, - - Older WF sitting Oral: Moist Mucosa Neck: Supple, Trachea Midline Lungs: Clear to auscultation, Normal air movement, No rhonchi, No wheeze, No rales Cardiovascular: Regular rate, Regular Rhythm, Normal S1, Normal S2, No murmurs, No Ectopic Activity, No rub noted, No Gallop Abdomen: Bowel Sounds Present, Soft, Non-Distended, Tender - mild diffuse, - - Colostomy and CARLOS ENRIQUE drain intact with good ostomy output that is brown Extremities: No clubbing, No cyanosis, No edema, Capillary Refill Less than 3 Seconds, Peripheral Pulses Normal Skin: No rashes, No breakdown Musculoskeletal: No Tenderness to Palpation of Joints or Extremities Neurological: Cranial nerves II-XII grossly intact, Neuro grossly intact Psych/Mental Status: Normal Affect, Appropriate Laboratory Results 03/21/20 05:45: Ionized Calcium Pending 03/21/20 05:45: WBC 11.6 H, RBC 2.57 L, Hgb 7.5 L, Hct 25.3 L, MCV 98.4, MCH 29.2, MCHC 29.6 L, RDW Std Deviation 52.9 H, RDW Coeff of Blaine 14.6, Plt Count 201, MPV 9.6 03/21/20 05:45: Sodium 144, Potassium 3.7, Chloride 115 H, Carbon Dioxide 22.0, Anion Gap 7, BUN 20 H, Creatinine 0.75, Estim Creat Clear Calc 34.42, Est GFR (MDRD) Af Amer 96, Est GFR (MDRD) Non-Af 79, BUN/Creatinine Ratio 26.6 H, Glucose 96, Calcium 6.8 L, Magnesium 2.4 Current Medications Acetaminophen (Acetaminophen 325 Mg Tablet) 650 mg PO Q6H PRN PRN PRN Reason: Elevated Temp/pain 1-5 Albuterol Sulfate (Ventolin Aerosols) 2.5 mg INHALATION Q2H PRN PRN PRN Reason: Dyspnea, wheezing Amlodipine Besylate (Amlodipine 2.5 Mg Tablet) 2.5 mg PO DAILY [facility] Last Admin: 03/21/20 09:45 Dose: 2.5 mg Documented by: Aspirin (Aspirin 81 Mg Tab.Chew) 81 mg PO DAILY@0800 [facility] Calamine/Phenol (Calmoseptine Ointment) 1 applic TOPICAL BID [facility]; Protocol Last Admin: 03/21/20 09:46 Dose: 1 applic Documented by: Carvedilol (Carvedilol 25 Mg Tablet) [facility] Last Admin: 03/21/20 09:45 Dose: 25 mg Documented by: Cholecalciferol (Cholecalciferol (Vit D3) 1,000 Unit (25mcg)) 2,000 unit [facility] Piperacillin Sod/Tazobactam (Sod 3.375 gm/ Sodium Chloride) 50 mls @ 12.5 mls/hr IV Q8 [facility] Last Infusion: 03/21/20 09:14 Dose: Infused Documented by: Sodium Chloride () 250 mls @ 15 mls/hr IV .[id number] PRN PRN Reason: Saline Flush Last Infusion: 03/21/20 05:11 Dose: 0 mls/hr Documented by: Leflunomide (Leflunomide 10 Mg Tablet) 20 mg PO DAILY [facility] Last Admin: 03/21/20 11:25 Dose: 20 mg Documented by: Levetiracetam (Levetiracetam 500 Mg Tablet) 500 mg PO BID [facility] Last Admin: 03/21/20 09:44 Dose: 500 mg Documented by: Nitroglycerin (Nitrostat) 0.4 mg SUBLINGUAL Q5M PRN PRN Reason: CARDIAC/CHEST PAIN Ondansetron HCl (Zofran) 4 mg IV Q8H PRN PRN PRN Reason: NAUSEA/VOMITING Last Admin: 03/20/20 17:41 Dose: 4 mg Documented by: Oxycodone HCl (Oxycodone 5 Mg Tablet) 5 mg PO Q4H PRN PRN PRN Reason: Pain Score 6-10 Pantoprazole Sodium (Pantoprazole Sodium 40 Mg Tablet) 40 mg PO DAILY [facility] Polysaccharide Iron Complex (Iron Polysaccharide Complex 150 Mg Capsule) 150 mg PO DAILYCM [facility] Pravastatin Sodium (Pravastatin 20 Mg Tablet) 20 mg PO QHS [facility] Prochlorperazine Edisylate (Compazine Iv) 5 mg IV Q4H PRN PRN PRN Reason: Breakthrough nausea/vomiting Last Admin: 03/20/20 13:13 Dose: 5 mg Documented by: Sodium Chloride () 10 - 40 ml IV UD PRN PRN Reason: SALINE FLUSH Last Admin: 03/19/20 11:33 Dose: 10 ml Documented by: Assessment/Plan I agree with the above and the following reflects my own independent history and physical exam ASSESSMENT Partial Large Bowel Obstruction s/p ostomy -suspected narrowing/stenosis Low Nml BP-resolved Hypocalcemia Chronic Anemia CAD Carotid artery stenosis Renal artery stenosis PAD HTN HPL COPD PMR GERD/Nash's Esophagus/PUD AILYN Seizure disorder PLAN -CLD started today and will advance as able -Calcium bolus again today -ICa pending -Bae out -Keppra Level pending -convert meds to PO and restart home meds as able -SNF when medically stable--> suspect next 24 to 48 hrs -d/c abx as pt has completed 3 day course for colitis Inpatient E&M: 87671 Subs Hosp L2
[2020-03-21] MEDS: Leflunomide 10 MG TABLET 20 MG PO (11:25)
--- NOTE | 2020-03-21 14:13 | CASEMGMT ---
Social Work Note Pt not medically ready for discharge today. SW faxed updated clinicals to [facility], wrote on fax coversheet no discharge today. Plan: [facility] once medically cleared Rola Coombs MSW, DOCUMENT CONTROL CLERK
[2020-03-21] MEDS: Pravastatin 20 MG Tablet PO (21:17)
[2020-03-22] VITALS (7 sets, daily range): BP systolic 126–135; BP diastolic 57–68; PULSE 79–89; RESP 16–26; TEMP 36.9–37.1; O2SAT 97–100
[2020-03-22 06:08] LABS: Absolute Neutrophil Count 9.1 X10^3/uL (2.0-7.7); Basophil# 0.03 X10^3/uL; Basophil% 0.3 % (0-1); Eosinophil# 0.23 X10^3/uL; Eosinophils% 2.1 % (0-5); Hematocrit 25.2 % (37-47); Hemoglobin 7.5 g/dL (12.0-15.0); Lymphocyte % 3.7 % (19-41); Mean Corp Hgb Conc 29.8 g/dL (32-36); Mean Corpuscular Hgb 29.2 pg (27.0-32.0); Mean Corpuscular Volume 98.1 fL (81-99); Mean Platelet Vol. 9.7 fl (6.2-12.0); Monocyte# 1.07 X10^3/uL; Monocyte% 9.8 % (0-10); NRBC Flagged by Analyzer 0 % (0-5); Neutrophil # 9.05 X10^3/uL (2.7-7.7); Neutrophil % 83.3 % (47-70); POSITIVE DIFFERENTIAL YES; Platelet Count 198 K/mm3 (150-450); RBC Distribution Width CV 14.6 % (11.6-14.6); RBC Distribution Width SD 52.1 fl (35.1-43.9); Red Blood Count 2.57 M/mm3 (4.2-5.4); White Blood Count 10.9 K/mm3 (4.4-11.0)
[2020-03-22 06:15] LABS: Differential Indicated SCAN CRITERIA MET
[2020-03-22 06:35] LABS: Anion Gap 6 (5-15); BUN 17 mg/dL (7-18); BUN/Creat Ratio 25.8 RATIO (10-20); Calcium,Total 6.9 mg/dL (8.5-10.1); Chloride 110 mmol/L (98-107); Creatinine, Serum 0.66 mg/dL (0.55-1.02); EST Glomerular Filtration Rate 92 mL/min (>60); Est Glom Filt Rate - Afr Amer 111 mL/min (>60); Estimated Creatinine Clearance 34.42 ml/min; Glucose 89 mg/dL (74-106); Potassium 3.2 mmol/L (3.5-5.1); Sodium Level 138 mmol/L (136-145)
[2020-03-22 06:55] LABS: Differential Comment SCANNED
[2020-03-22] MEDS: Aspirin 81 MG TAB.CHEW PO (08:01)
[2020-03-22] MEDS: levETIRAcetam 500 MG Tablet PO (08:01)
[2020-03-22] MEDS: Menthol/Lanolin/Calamine/Znox 113 GM Tube 1 APPLIC TOPICAL (08:02)
[2020-03-22] MEDS: Pantoprazole Sodium 40 MG Tablet PO (08:02)
[2020-03-22] MEDS: Iron Polysaccharide Complex 150 MG CAPSULE PO (08:02)
[2020-03-22] MEDS: Carvedilol 25 MG Tablet PO (08:02)
[2020-03-22] MEDS: Leflunomide 10 MG TABLET 20 MG PO (08:03)
[2020-03-22] MEDS: amLODIPine 2.5 MG Tablet PO (08:03)
[2020-03-22 08:05] LABS: KEPPRA (LEVETIRACETAM) 7.4 ug/mL (10.0-40.0)
--- NOTE | 2020-03-22 08:05 | PN_ITS ---
Patient Problems: Active and Suspected Problems (Last Reviewed 02/20/20 @ 20:[address] Cesar Chandra MD) Large bowel obstruction (Acute) Obstruction of colon (Acute) Subjective: Pt states that she is feeling well today. No issues with CLD yesterday. Pain is well controlled. Good ostomy output. Vitals/I&O's: Vital Signs Temp Pulse Resp BP Pulse Ox 98.5 F 88 16 135/63 H 97 03/22/20 03:00 03/22/20 03:52 03/22/20 03:00 03/22/20 03:00 03/22/20 07:03 Oxygen Flow Rate (L/min) 1 Oxygen Delivery Method Room Air Weight: 86.2 kg Body Mass Index (BMI) 35.9 Finger Stick Blood Glucose 135 Intake and Output for Last 24 Hours 03/20/20 03/21/20 03/22/20 23:59 23:59 23:59 Intake Total 3546.67 / 3546.67 1766 / 1766 Output Total 555 / 910 1355 / 1470 195 / 195 Balance 2991.67 / 2636.67 411 / 296 -195 / -195 General: Alert, Oriented x3, Cooperative, No apparent distress, Well developed, Well nourished, - - older WF lying in bed sleeping but awakens easily HEENT: Atraumatic, PERRLA, EOMI, Normocephalic, EAC Clear Oral: Moist Mucosa, No Gingival or Mucosal Lesions/ Ulcerations, - - dentures in place Neck: Supple, No JVD, Negative Carotid Bruits, Negative Hepatojugular Reflux, No Nodes, No Nuchal Rigidity, Trachea Midline, Thyroid Normal Size and Texture Lungs: Clear to auscultation, Normal air movement, No rhonchi, No wheeze, No rales Cardiovascular: Regular rate, Regular Rhythm, Normal S1, Normal S2, No murmurs, No Ectopic Activity, No rub noted, No Gallop Abdomen: Bowel Sounds Present, Soft, Non-Distended, No Hepato-splenomegaly, Obese, Tender - mildly around incision, - - Midline incision is healing well with minimal serous drainage, farrukh in place, ostomy in place with good outpt Extremities: No clubbing, No cyanosis, No edema, Capillary Refill Less than 3 Seconds, Peripheral Pulses Normal Skin: No rashes, No breakdown, - - pale skin Musculoskeletal: No Tenderness to Palpation of Joints or Extremities, No Muscle Wasting, Arthritic Changes Lymphatic: No Cervical, Supraclavicular, or Inguinal Adenopathy Neurological: Cranial nerves II-XII grossly intact, Neuro grossly intact, Muscle tone normal, Sensory exam intact to light touch and pain, Coordination normal Psych/Mental Status: Normal Affect, Appropriate, Alert and oriented to time, place, person, mood and affect Laboratory Results 03/21/20 13:34: COVID-19 ([facility]IAM) Not Detected 03/22/20 05:35: WBC 10.9, RBC 2.57 L, Hgb 7.5 L, Hct 25.2 L, MCV 98.1, MCH 29.2, MCHC 29.8 L, RDW Std Deviation 52.1 H, RDW Coeff of Blaine 14.6, Plt Count 198, MPV 9.7, Immature Gran % (Auto) 0.800, Neut % (Auto) 83.3 H, Lymph % (Auto) 3.7 L, [place] % (Auto) 9.8, Eos % (Auto) 2.1, Baso % (Auto) 0.3, Absolute Neuts (auto) 9.1 H, Absolute Lymphs (auto) 0.40 L, Nucleated RBC % 0, Differential Comment SCANNED 03/22/20 05:35: Sodium 138, Potassium 3.2 L, Chloride 110 H, Carbon Dioxide 22.0, Anion Gap 6, BUN 17, Creatinine 0.66, Estim Creat Clear Calc 34.42, Est GFR (MDRD) Af Amer 111, Est GFR (MDRD) Non-Af 92, BUN/Creatinine Ratio 25.8 H, Glucose 89, Calcium 6.9 L Current Medications Acetaminophen (Acetaminophen 325 Mg Tablet) 650 mg PO Q6H PRN PRN PRN Reason: Elevated Temp/pain 1-5 Albuterol Sulfate (Ventolin Aerosols) 2.5 mg INHALATION Q2H PRN PRN PRN Reason: Dyspnea, wheezing Amlodipine Besylate (Amlodipine 2.5 Mg Tablet) 2.5 mg PO DAILY [facility] Last Admin: 03/22/20 08:03 Dose: 2.5 mg Documented by: Aspirin (Aspirin 81 Mg Tab.Chew) 81 mg PO DAILY@0800 [facility] Last Admin: 03/22/20 08:01 Dose: 81 mg Documented by: Calamine/Phenol (Calmoseptine Ointment) 1 applic TOPICAL BID [facility]; Protocol Last Admin: 03/22/20 08:02 Dose: 1 applic Documented by: Carvedilol (Carvedilol 25 Mg Tablet) [facility] Last Admin: 03/22/20 08:02 Dose: 25 mg Documented by: Cholecalciferol (Cholecalciferol (Vit D3) 1,000 Unit (25mcg)) 2,[facility] Last Admin: 03/22/20 08:02 Dose: 2,000 unit Documented by: Sodium Chloride () 250 mls @ 15 mls/hr IV .[id number] PRN PRN Reason: Saline Flush Last Infusion: 03/21/20 05:11 Dose: 0 mls/hr Documented by: Leflunomide (Leflunomide 10 Mg Tablet) 20 mg PO DAILY [facility] Last Admin: 03/22/20 08:03 Dose: 20 mg Documented by: Levetiracetam (Levetiracetam 500 Mg Tablet) 500 mg PO BID [facility] Last Admin: 03/22/20 08:01 Dose: 500 mg Documented by: Nitroglycerin (Nitrostat) 0.4 mg SUBLINGUAL Q5M PRN PRN Reason: CARDIAC/CHEST PAIN Ondansetron HCl (Zofran) 4 mg IV Q8H PRN PRN PRN Reason: NAUSEA/VOMITING Last Admin: 03/20/20 17:41 Dose: 4 mg Documented by: Oxycodone HCl (Oxycodone 5 Mg Tablet) 5 mg PO Q4H PRN PRN PRN Reason: Pain Score 6-10 Pantoprazole Sodium (Pantoprazole Sodium 40 Mg Tablet) 40 mg PO DAILY [facility] Last Admin: 03/22/20 08:02 Dose: 40 mg Documented by: Polysaccharide Iron Complex (Iron Polysaccharide Complex 150 Mg Capsule) [facility] Last Admin: 03/22/20 08:02 Dose: 150 mg Documented by: Pravastatin Sodium (Pravastatin 20 Mg Tablet) 20 mg PO QHS [facility] Last Admin: 03/21/20 21:17 Dose: 20 mg Documented by: Prochlorperazine Edisylate (Compazine Iv) 5 mg IV Q4H PRN PRN PRN Reason: Breakthrough nausea/vomiting Last Admin: 03/20/20 13:13 Dose: 5 mg Documented by: Sodium Chloride () 10 - 40 ml IV UD PRN PRN Reason: SALINE FLUSH Last Admin: 03/19/20 11:33 Dose: 10 ml Documented by: STROKE Vital Signs/Narrative: Vital Signs Pulse Ox 03/22/20 07:03 97 Medical Necessity - Tobacco Use Smoking Status: Former smoker Tobacco Use: Non-smoker Assessment/Plan All Active Problems (Last Reviewed 02/20/20 @ 20:[address] Cesar Chandra MD) Colitis (Acute) Generalized weakness (Acute) Debility (Acute) Hypomagnesemia (Acute) Hyponatremia (Acute) Large bowel obstruction (Acute) Obstruction of colon (Acute) Dehydration (Resolved) ASSESSMENT Partial Large Bowel Obstruction s/p ostomy -suspected narrowing/stenosis Low Nml BP-resolved Hypocalcemia Hypokalemia Acute on Chronic Anemia 2/2 surgical blood loss CAD Carotid artery stenosis Renal artery stenosis PAD HTN HPL COPD PMR GERD/Nash's Esophagus/PUD AILYN Seizure disorder PLAN -pt did well with CLD yesterday and ostomy output remains good -suspect diet advancement today -CARLOS ENRIQUE drain remains in place with about 40 cc out yesterday -suspect that this will not be pulled as of yet--> await GS input -BP are back WNL and pt is back on home meds for BP -will restart Plavix at D/C (no recent SCAR/BMS) -ABX d/c on 03/22 -white count is normalized -ICa is still pending -bolus 2 gm calcium gluc x 2 doses today -repeat BMP in am -Kdur X 1 dose -check am BMP and Mag level -Keppra level was low at 7.4 on 03/19 -no seizure activity -monitor
--- NOTE | 2020-03-22 08:16 | PCM.PN.SRG ---
Patient Problems: Active and Suspected Problems (Last Reviewed 02/20/20 @ 20:[address] Cesar Chandra MD) Large bowel obstruction (Acute) Obstruction of colon (Acute) Subjective: Patient reports no nausea or vomiting tolerating clears. She is having stool through her stoma. - Physical Exam Vitals/I&O's: Vital Signs Temp Pulse Resp BP Pulse Ox 98.5 F 88 16 135/63 H 97 03/22/20 03:00 03/22/20 03:52 03/22/20 03:00 03/22/20 03:00 03/22/20 07:03 Oxygen Flow Rate (L/min) 1 Oxygen Delivery Method Room Air Weight: 190 lb 0.615 oz Body Mass Index (BMI) 35.9 Finger Stick Blood Glucose 135 Intake and Output for Last 24 Hours 03/20/20 03/21/20 03/22/20 23:59 23:59 23:59 Intake Total 3546.67 / 3546.67 1766 / 1766 Output Total 555 / 910 1355 / 1470 195 / 195 Balance 2991.67 / 2636.67 411 / 296 -195 / -195 General: Alert, Oriented x3 Lungs: Normal air movement Cardiovascular: Regular rate, Regular Rhythm Abdomen: Soft, Non Tender, Non-Distended Laboratory Results 03/19/20 08:00: Levetiracetam 7.4 L 03/21/20 13:34: COVID-19 ([facility]) Not Detected 03/22/20 05:35: WBC 10.9, RBC 2.57 L, Hgb 7.5 L, Hct 25.2 L, MCV 98.1, MCH 29.2, MCHC 29.8 L, RDW Std Deviation 52.1 H, RDW Coeff of Blaine 14.6, Plt Count 198, MPV 9.7, Immature Gran % (Auto) 0.800, Neut % (Auto) 83.3 H, Lymph % (Auto) 3.7 L, [place] % (Auto) 9.8, Eos % (Auto) 2.1, Baso % (Auto) 0.3, Absolute Neuts (auto) 9.1 H, Absolute Lymphs (auto) 0.40 L, Nucleated RBC % 0, Differential Comment SCANNED 03/22/20 05:35: Sodium 138, Potassium 3.2 L, Chloride 110 H, Carbon Dioxide 22.0, Anion Gap 6, BUN 17, Creatinine 0.66, Estim Creat Clear Calc 34.42, Est GFR (MDRD) Af Amer 111, Est GFR (MDRD) Non-Af 92, BUN/Creatinine Ratio 25.8 H, Glucose 89, Calcium 6.9 L Current Medications Acetaminophen (Acetaminophen 325 Mg Tablet) 650 mg PO Q6H PRN PRN PRN Reason: Elevated Temp/pain 1-5 Albuterol Sulfate (Ventolin Aerosols) 2.5 mg INHALATION Q2H PRN PRN PRN Reason: Dyspnea, wheezing Amlodipine Besylate (Amlodipine 2.5 Mg Tablet) 2.5 mg PO DAILY [facility] Last Admin: 03/22/20 08:03 Dose: 2.5 mg Documented by: Aspirin (Aspirin 81 Mg Tab.Chew) 81 mg PO DAILY@0800 [facility] Last Admin: 03/22/20 08:01 Dose: 81 mg Documented by: Calamine/Phenol (Calmoseptine Ointment) 1 applic TOPICAL BID [facility]; Protocol Last Admin: 03/22/20 08:02 Dose: 1 applic Documented by: [facility]ilol ([facility] Mg [facility]) [facility] Last Admin: 03/22/20 08:02 Dose: 25 mg Documented by: Cholecalciferol (Cholecalciferol (Vit D3) 1,000 Unit (25mcg)) [facility] Last Admin: 03/22/20 08:02 Dose: 2,000 unit Documented by: Sodium Chloride () 250 mls @ 15 mls/hr IV .[id number] PRN PRN Reason: Saline Flush Last Infusion: 03/21/20 05:11 Dose: 0 mls/hr Documented by: Calcium Gluconate 2 gm/ Sodium (Chloride) 120 mls @ 60 mls/hr IV BID [facility] Stop: 03/23/20 10:01 Leflunomide (Leflunomide 10 Mg Tablet) 20 mg PO DAILY [facility] Last Admin: 03/22/20 08:03 Dose: 20 mg Documented by: Levetiracetam (Levetiracetam 500 Mg Tablet) 500 mg PO BID [facility] Last Admin: 03/22/20 08:01 Dose: 500 mg Documented by: Nitroglycerin (Nitrostat) 0.4 mg SUBLINGUAL Q5M PRN PRN Reason: CARDIAC/CHEST PAIN Ondansetron HCl (Zofran) 4 mg IV Q8H PRN PRN PRN Reason: NAUSEA/VOMITING Last Admin: 03/20/20 17:41 Dose: 4 mg Documented by: Oxycodone HCl (Oxycodone 5 Mg Tablet) 5 mg PO Q4H PRN PRN PRN Reason: Pain Score 6-10 Pantoprazole Sodium (Pantoprazole Sodium 40 Mg Tablet) 40 mg PO DAILY [facility] Last Admin: 03/22/20 08:02 Dose: 40 mg Documented by: Polysaccharide Iron Complex (Iron Polysaccharide Complex 150 Mg Capsule) [facility] Last Admin: 03/22/20 08:02 Dose: 150 mg Documented by: Pravastatin Sodium (Pravastatin 20 Mg Tablet) 20 mg PO QHS [facility] Last Admin: 03/21/20 21:17 Dose: 20 mg Documented by: Prochlorperazine Edisylate (Compazine Iv) 5 mg IV Q4H PRN PRN PRN Reason: Breakthrough nausea/vomiting Last Admin: 03/20/20 13:13 Dose: 5 mg Documented by: Sodium Chloride () 10 - 40 ml IV UD PRN PRN Reason: SALINE FLUSH Last Admin: 03/19/20 11:33 Dose: 10 ml Documented by: Medical Necessity - Tobacco Use Smoking Status: Former smoker Tobacco Use: Non-smoker Assessment/Plan All Active Problems (Last Reviewed 02/20/20 @ 20:[address] Cesar Chandra MD) Colitis (Acute) Generalized weakness (Acute) Debility (Acute) Hypomagnesemia (Acute) Hyponatremia (Acute) Large bowel obstruction (Acute) Obstruction of colon (Acute) Dehydration (Resolved) 79-year-old female status post colostomy 1. Pathology came back benign. Patient is tolerating clear liquids and I will advance her to a regular diet. She is having good stool stoma output. 2. I would like the farrukh removed in 1 week at the [facility]. I would like to see her back in 2 weeks. David Cortez MD Pager: [facility] [address] [place] [address], [address] [place] [address] Office:
--- NOTE | 2020-03-22 08:26 | TREXTCAR_ITS ---
- Diet 03/22/20 07:46 Diet: Regular - cardiac - Routine Orders/Code Status Code Status: Full Code - Wound(s) abd Wound Type: Surgical Incision Dressing Change: Dry Sterile Dressing - Suggestions for Active Care Hours to sit in a chair: 2 Times a day to sit in chair: 3 - Therapies Weight Bearing: Full weight bearing Physical Therapy: Eval and Treat Occupational Therapy: Eval and Treat - Allergies/Procedures Done in Hospital Allergies/Adverse Reactions: Allergies gabapentin Allergy (Verified 03/18/20 21:54) Unknown nortriptyline Allergy (Verified 03/18/20 21:54) Unknown rofecoxib [From Vioxx] Allergy (Verified 03/18/20 21:54) Unknown tacrolimus Allergy (Verified 03/18/20 21:54) Unknown ciprofloxacin Adverse Reaction (Severe, Verified 03/18/20 21:54) seizure seizure metronidazole Adverse Reaction (Severe, Verified 03/18/20 21:54) seizure morphine Adverse Reaction (Verified 03/18/20 21:54) Nausea - Type of Care/Length of Stay Estimated LOS: Convalescent Care Less Than 30 days Type of Care Needed: Skilled Rehab Potential: Good Prognosis: Good - Additional Orders/Day of Discharge Additional Orders: Remove farrukh for abdominal surgical incision in 1 week (03/29/2020) Day of Discharge: 03/22/20 - Dietary and Speech Recommendations Dietitian Recommendations/Changes: As medically able, rec HAI to transitional w/ end goal of Cardiac diet. Rec ONS for increased nutrition pending pt po intake once diet ordered - Follow Up Care Primary Care Physician: Nicolas Villegas MD [Primary Care Provider] - Please follow up with your Primary Care Physician in: 1-2 weeks after d/c from SNF Please Follow Up With: David Cortez MD When: 2 weeks from d/c at [facility]
--- NOTE | 2020-03-22 08:30 | DS.PCM_ITS ---
Discharge Date and Diagnosis - Problem List Patient Problems: Active and Suspected Problems (Last Reviewed 02/20/20 @ 20:[address] Cesar Chandra MD) Large bowel obstruction (Acute) Obstruction of colon (Acute) Date of Admission: 03/18/20 Date of Discharge: 03/22/20 - Primary Discharge Diagnosis Acute Problems: Active Problems (Last Reviewed 02/20/20 @ 20:[address] Cesar Chandra MD) Large bowel obstruction (Acute) Obstruction of colon (Acute) - Secondary Discharge Diagnosis Chronic Problems: Chronic Problems (Last Reviewed 02/20/20 @ 20:[address] Cesar Chandra MD) Cystitis (Chronic) Polymyalgia rheumatica (Chronic) Fall (Chronic) Pancolitis (Chronic) Diarrhea (Chronic) Ileus (Chronic) Lymphedema (Chronic) Hypertension (Chronic) Chronic kidney disease, stage 2 (mild) (Chronic) GERD (gastroesophageal reflux disease) (Chronic) Coronary artery disease (Chronic) Seizure (Chronic) BMI 36.0-36.9,adult (Chronic) Pulmonary hypertension (Chronic) RVSP 55 COPD (chronic obstructive pulmonary disease) (Chronic) AILYN (obstructive sleep apnea) (Chronic) AHI 115 and titrated to nasal CPAP 14 cm of water Atherosclerotic heart disease of [place] coronary artery without angina pectoris (Chronic) Chronic renal insufficiency, stage II (mild) (Chronic) Hyperglycemia, unspecified (Chronic) Carotid stenosis (Chronic) Renal artery stenosis (Chronic) HLD (hyperlipidemia) (Chronic) Benign essential hypertension (Chronic) Hospital Course and Treatment Imaging Results: STUDY: THERAPEUTIC GASTROGRAFIN ENEMA. 03/19/2020 REASON FOR EXAM: Female, 79 years old. Colon obstruction, gastrografin enema attempted, all of the contrast immediately came back out FLUOROSCOPY TIME (if supplied): ( 35 seconds ) minutes/seconds. 6 images were obtained. TECHNIQUE: GASTROGRAFIN was introduced retrograde through the rectum. The patient was unable to hold the GASTROGRAFIN. COMPARISON: None. FINDINGS: A senior software qa analyst film was obtained. Contrast is seen within the urinary bladder from recent CT scan of the abdomen. There is a mild degree of small bowel dilatation. The rectosigmoid colon was opacified. There is evidence of scattered sigmoid diverticula. The patient was unable to withstand the pressure from the enema. There is evidence of retrograde obstruction. RAD/Therapeutic Enema IMPRESSION: Retrograde obstruction to the flow of GASTROGRAFIN at the level of the sigmoid colon where there is evidence of sigmoid diverticulosis.. Consultations 03/20/20 09:19 Consult: Onc/Wound/weigher and mixer Routine Comment: Reason for Consult:: new colostomy Operations: - - Exploratory laparotomy with sigmoid colectomy and end colostomy Procedures: - - Gastrografin Enema Summary of Care Provided: Ms Ochoa is a 79 y/o F w/ PMHx: AILYN on CPAP q HS, Chronic COPD, CKD stage II, GERD, CAD, Pulmonary HTN, PAD, Carotid artery stenosis, Hx renal artery stenosis, HTN, HLD, Chronic lymphedema, PMR, Frequent episodes noted for colitis/diverticulitis who was recently discharged to TCU on 02/20/20 following treatment for severe sepsis, colitis and cystitis. She re-presented to the ED at [facility] following rapid response to TCU on 03/04/20 with seizure activity with electrolyte disturbances and was sent back to TCU. She then re-presented a 3rd time to the [facility] ED on 03/18/20 with acute onset abdominal pain, that was sharp and cramping in nature and had been associated with nausea and emesis. Her last BM was 2 days prior and she had been experiencing decreased flatus. She recently had a failed c-scope, noted he was only able to get up into the distal colon 2/2 narrowing. Work-up in the ED included T 97.9, heart rate 16, BP 173/89, r 95% on room air, CBC with WC 13.5, hemoglobin 10.2, platelet 264 with left shift with concurrent lymphopenia, unremarkable coags, CMP with glucose 129 otherwise not marked appearing, lactic acid 0.7, lipase 18, 03/18/2020 KUB with a nonobstructive bowel gas pattern and a follow-up CT abdomen and pelvis noting a partial large bowel obstruction with transition in the sigmoid colon and proximal colitis still evident. She was admitted to the [facility] with IVF, pain medicine, antiemetics and Zosyn and was taken to the OR on 03/19/[address] Cortez after a Gastrografin enema showed retrograde obstruction at the level of the sigmoid colon. An exploratory laparotomy with sigmoid colectomy and end colostomy was performed at that time. She was started on CLD on 03/20 after having ostomy outpt and was able to be advanced to a reg cardiac diet on 03/21. She is at this time stable for d/c to SNF with the intent that she will be transitioned back to Assisted Living when she is medically stable enough to do so. She is to have her farrukh removed in 1 week (03/29/2020) and is to f/u with Dr. Cortez in 2 weeks. Her electrolytes were replaced accordingly and I would recommend a repeat CBC and BMP with Mag in the am of 03/23. She was d/c in stable condition. Discharge Diagnoses Partial Large Bowel Obstruction s/p ostomy -suspected narrowing/stenosis 2/2 diverticular disease Low Nml BP-resolved Hypocalcemia Hypokalemia Chronic Anemia CAD Carotid artery stenosis Renal artery stenosis PAD HTN HPL COPD PMR GERD/Nash's Esophagus/PUD AILYN Seizure disorder Diverticular Disease with h/o diverticulitis CKD stage 2 Discharge Time > 31' Patient Problems: Active and Suspected Problems (Last Reviewed 02/20/20 @ 20:[address] Cesar Chandra MD) Large bowel obstruction (Acute) Obstruction of colon (Acute) - Physical Exam Vitals/I&O's: Vital Signs Temp Pulse Resp BP Pulse Ox 98.5 F 88 16 135/63 H 97 03/22/20 03:00 03/22/20 03:52 03/22/20 03:00 03/22/20 03:00 03/22/20 07:03 Oxygen Flow Rate (L/min) 1 Oxygen Delivery Method Room Air Weight: 86.2 kg Body Mass Index (BMI) 35.9 Finger Stick Blood Glucose 135 Intake and Output for Last 24 Hours 03/20/20 03/21/20 03/22/20 23:59 23:59 23:59 Intake Total 3546.67 / 3546.67 1766 / 1766 Output Total 555 / 910 1355 / 1470 195 / 195 Balance 2991.67 / 2636.67 411 / 296 -195 / -195 Laboratory Results 03/19/20 08:00: Levetiracetam 7.4 L 03/21/20 13:34: COVID-19 (MARIAM) Not Detected 03/22/20 05:35: WBC 10.9, RBC 2.57 L, Hgb 7.5 L, Hct 25.2 L, MCV 98.1, MCH 29.2, MCHC 29.8 L, RDW Std Deviation 52.1 H, RDW Coeff of Blaine 14.6, Plt Count 198, MPV 9.7, Immature Gran % (Auto) 0.800, Neut % (Auto) 83.3 H, Lymph % (Auto) 3.7 L, [place] % (Auto) 9.8, Eos % (Auto) 2.1, Baso % (Auto) 0.3, Absolute Neuts (auto) 9.1 H, Absolute Lymphs (auto) 0.40 L, Nucleated RBC % 0, Differential Comment SCANNED 03/22/20 05:35: Sodium 138, Potassium 3.2 L, Chloride 110 H, Carbon Dioxide 22.0, Anion Gap 6, BUN 17, Creatinine 0.66, Estim Creat Clear Calc 34.42, Est GFR (MDRD) Af Amer 111, Est GFR (MDRD) Non-Af 92, BUN/Creatinine Ratio 25.8 H, Glucose 89, Calcium 6.9 L Current Medications Acetaminophen (Acetaminophen 325 Mg Tablet) 650 mg PO Q6H PRN PRN PRN Reason: Elevated Temp/pain 1-5 Albuterol Sulfate (Ventolin Aerosols) 2.5 mg INHALATION Q2H PRN PRN PRN Reason: Dyspnea, wheezing Amlodipine Besylate (Amlodipine 2.5 Mg Tablet) 2.5 mg PO DAILY [facility] Last Admin: 03/22/20 08:03 Dose: 2.5 mg Documented by: Aspirin (Aspirin 81 Mg Tab.Chew) 81 mg PO DAILY@0800 [facility] Last Admin: 03/22/20 08:01 Dose: 81 mg Documented by: Calamine/Phenol (Calmoseptine Ointment) 1 applic TOPICAL BID [facility]; Protocol Last Admin: 03/22/20 08:02 Dose: 1 applic Documented by: [facility] Mg [facility]) [facility] Admin: 03/22/20 08:02 Dose: 25 mg Documented by: Cholecalciferol (Cholecalciferol (Vit D3) 1,000 Unit (25mcg)) [facility] Last Admin: 03/22/20 08:02 Dose: 2,000 unit Documented by: Sodium Chloride () 250 mls @ 15 mls/hr IV .[id number] PRN PRN Reason: Saline Flush Last Infusion: 03/21/20 05:11 Dose: 0 mls/hr Documented by: Calcium Gluconate 2 gm/ Sodium (Chloride) 120 mls @ 60 mls/hr IV BID [facility] Stop: 03/22/20 23:59 Leflunomide (Leflunomide 10 Mg Tablet) 20 mg PO DAILY [facility] Last Admin: 03/22/20 08:03 Dose: 20 mg Documented by: Levetiracetam (Levetiracetam 500 Mg Tablet) 500 mg PO BID [facility] Last Admin: 03/22/20 08:01 Dose: 500 mg Documented by: Nitroglycerin (Nitrostat) 0.4 mg SUBLINGUAL Q5M PRN PRN Reason: CARDIAC/CHEST PAIN Ondansetron HCl (Zofran) 4 mg IV Q8H PRN PRN PRN Reason: NAUSEA/VOMITING Last Admin: 03/20/20 17:41 Dose: 4 mg Documented by: Oxycodone HCl (Oxycodone 5 Mg Tablet) 5 mg PO Q4H PRN PRN PRN Reason: Pain Score 6-10 Pantoprazole Sodium (Pantoprazole Sodium 40 Mg Tablet) 40 mg PO DAILY [facility] Last Admin: 03/22/20 08:02 Dose: 40 mg Documented by: Polysaccharide Iron Complex (Iron Polysaccharide Complex 150 Mg Capsule) [facility] Last Admin: 03/22/20 08:02 Dose: 150 mg Documented by: Pravastatin Sodium (Pravastatin 20 Mg Tablet) 20 mg PO QHS [facility] Last Admin: 03/21/20 21:17 Dose: 20 mg Documented by: Prochlorperazine Edisylate (Compazine Iv) 5 mg IV Q4H PRN PRN PRN Reason: Breakthrough nausea/vomiting Last Admin: 03/20/20 13:13 Dose: 5 mg Documented by: Sodium Chloride () 10 - 40 ml IV UD PRN PRN Reason: SALINE FLUSH Last Admin: 03/19/20 11:33 Dose: 10 ml Documented by: Home Medications: Medications to take at Discharge Acetaminophen Liquid [Tylenol Liquid] 1,000 mg PO Q6H PRN udc 03/15/20 Amlodipine [Norvasc] 2.5 mg PO DAILY tab 03/15/20 Aspirin [Aspirin, Baby] 81 mg PO DAILY@0800 tab.chew 03/15/20 Calcium Carbonate [Tums] 1,000 mg PO BIDCM tab 03/15/20 Calcium Carbonate [Tums] 500 mg PO Q4H PRN PRN tab 03/15/20 Carvedilol [Coreg (Beta Gertrudis)] 25 mg PO BID tab 03/15/20 Cholecalciferol (VIT D3) [Vitamin D3] 2,000 unit PO DAILYCM tab 03/15/20 Clopidogrel Bisulfate [Plavix] 75 mg PO DAILY tab 03/15/20 Iron Polysaccharide Complex [Ferrex 150] 150 mg PO DAILYCM cap 03/15/20 Leflunomide 20 mg PO DAILY tab 03/15/20 Losartan Potassium [Cozaar] 100 mg PO DAILY tab 03/15/20 Magnesium Oxide 400 mg PO BID #60 tab 03/15/20 Menthol/Lanolin/Calamine/Znox [Calmoseptine Ointment] 1 applic TOPICAL BID tube 03/15/20 Pantoprazole Sodium [Protonix] 40 mg PO DAILY tab 03/15/20 Pravastatin [Pravachol] 20 mg PO QHS tab 03/15/20 levETIRAcetam tablet [Keppra tablet] 500 mg PO BID tab 03/15/20 Primary Care Physician: Nicolas Villegas MD [Primary Care Provider] - Please follow up with your Primary Care Physician in: 1-2 weeks after d/c from [facility] Please Follow Up With: David Cortez MD When: 2 weeks from d/c at [facility] Medical Necessity - Tobacco Use Smoking Status: Former smoker Tobacco Use: Non-smoker Meaningful Use Info Meaningful Use Diagnoses (Choose all that apply): None applicable Inpatient E&M: [id number] [facility]
--- NOTE | 2020-03-22 10:14 | PHA.DC.MR ---
Pharmacy Service has performed discharge medication reconciliation for this patient. The patient's discharge medication list was reviewed for discrepancies and discrepancies were resolved. Home Medications Acetaminophen Liquid [Tylenol Liquid] 1,000 mg PO Q6H PRN udc 03/15/20 Amlodipine [Norvasc] 2.5 mg PO DAILY tab 03/15/20 Aspirin [Aspirin, Baby] 81 mg PO DAILY@0800 tab.chew 03/15/20 Calcium Carbonate [Tums] 1,000 mg PO BIDCM tab 03/15/20 Calcium Carbonate [Tums] 500 mg PO Q4H PRN PRN tab 03/15/20 Carvedilol [Coreg (Beta Gertrudis)] 25 mg PO BID tab 03/15/20 Cholecalciferol (VIT D3) [Vitamin D3] 2,000 unit PO DAILYCM tab 03/15/20 Clopidogrel Bisulfate [Plavix] 75 mg PO DAILY tab 03/15/20 Iron Polysaccharide Complex [Ferrex 150] 150 mg PO DAILYCM cap 03/15/20 Leflunomide 20 mg PO DAILY tab 03/15/20 Losartan Potassium [Cozaar] 100 mg PO DAILY tab 03/15/20 Magnesium Oxide 400 mg PO BID #60 tab 03/15/20 Menthol/Lanolin/Calamine/Znox [Calmoseptine Ointment] 1 applic TOPICAL BID tube 03/15/20 Pantoprazole Sodium [Protonix] 40 mg PO DAILY tab 03/15/20 Pravastatin [Pravachol] 20 mg PO QHS tab 03/15/20 levETIRAcetam tablet [Keppra tablet] 500 mg PO BID tab 03/15/20
--- NOTE | 2020-03-22 11:25 | CASEMGMT ---
Social Work Note Pt is medically ready for discharge today. TUNDE faxed completed discharge paperwork to [place] including transfer to extended care facility, signed medication list, any scripts, [facility] negative COVID test, and COVID screening tool. Original in SNF folder and copy on pt's chart. TUNDE completed convalescent 7000 in [facility]. Original in SNF folder and copy on pt's chart. TUNDE spoke with RN, pt can transport via wheelchair but pt is getting two bags of calcium, requests transportation be arranged for 3:00-4:00pm. TUNDE placed a call to [facility] and arranged transportation via wheelchair van for 3:00pm. Transportation form completed and placed on SNF folder and copy on pt's chart. TUNDE updated RN on transportation time. SW updated pt pt on transportation time. Pt states she will call her family to update. TUNDE placed a call to Dilcia at [place] and updated her on discharge and transportation time. Plan: [place] [facility] transporting pt via wheelchair van at 3:00pm Rola Coombs MSW, [employer]
--- NOTE | 2020-03-22 12:42 | NURSING ---
call placed to [facility] and report given to nurse whom will take over care for pt
--- NOTE | 2020-03-22 13:14 | NURSING ---
piano instructor informed primary RN that patient's one IV fell out on its own and the other IV site was infiltrated and removed.
== END 2020-03-22 15:10 | DRG 330 ==
LOC: ED 22:03 → MS3 03-19 06:26
PROVIDERS: Anesthesiology; Nurse Practitioner Family; Surgery; Admitting Provider Family Medicine; Emergency Provider Emergency Medicine; PCP Family Medicine; Visit Provider Internal Medicine
PROC: 0DBN4ZZ Excision of Sigmoid Colon, Percutaneous Endoscopic Approach (ICD-10-PCS; principal; 2020-03-19 13:10)
DX: K57.32 Diverticulitis of large intestine without perforation or abscess without bleeding (principal); K56.600 Partial intestinal obstruction, unspecified as to cause; A09 Infectious gastroenteritis and colitis, unspecified; K57.30 Diverticulosis of large intestine without perforation or abscess without bleeding; I12.9 Hypertensive chronic kidney disease with stage 1 through stage 4 chronic kidney disease, or unspecified chronic kidney disease; N18.2 Chronic kidney disease, stage 2 (mild); D63.1 Anemia in chronic kidney disease; K21.9 Gastro-esophageal reflux disease without esophagitis; I25.10 Atherosclerotic heart disease of native coronary artery without angina pectoris; J44.9 Chronic obstructive pulmonary disease, unspecified; E78.5 Hyperlipidemia, unspecified; Z79.02 Long term (current) use of antithrombotics/antiplatelets; Z79.899 Other long term (current) drug therapy; I70.1 Atherosclerosis of renal artery; I73.9 Peripheral vascular disease, unspecified; G40.909 Epilepsy, unspecified, not intractable, without status epilepticus; M35.3 Polymyalgia rheumatica; G47.33 Obstructive sleep apnea (adult) (pediatric); I27.20 Pulmonary hypertension, unspecified; Z87.891 Personal history of nicotine dependence; E83.51 Hypocalcemia; E87.6 Hypokalemia; I65.29 Occlusion and stenosis of unspecified carotid artery; K27.9 Peptic ulcer, site unspecified, unspecified as acute or chronic, without hemorrhage or perforation; K22.70 Barrett's esophagus without dysplasia
CPT/HCPCS: 36415; 74177; 74283; 80048; 80053; 80177; 82330; 83605; 83690; 83735; 85025; 85027; 85610; 85730; 86900; 86901; 86965; 87635; 88309; 97110; 97162; 97166; 97530; 97535; 99251; 99281; J7030; J7040; J7050; P9035; Q9967; A4216; G0463; J0610; J2405; U0003

== ENCOUNTER → 2020-03-18 | Outpatient (CLI) | payer MEDICARE, OTHER, SELFPAY ==
[2020-03-06 20:19] VITALS: BMI 35.4
--- NOTE | 2020-03-18 18:24 | CT_ITS ---
We are attempting to reach an attending provider to discuss findings. An addendum with communication details will be sent when the communication is complete. STUDY: CT ABDOMEN AND PELVIS WITH CONTRAST REASON FOR EXAM: Female, 79 years old. PAIN, HYSTER,DELILAH. Previously reported pancolitis. RADIATION DOSAGE (If Supplied By Facility): CTDIvol = ( 21.57 ) mGy, DLP = ( 1128.33 ) mGycm TECHNIQUE: Transaxial images were obtained from the dome of the diaphragm to the symphysis pubis without oral contrast. IV 100mL Isovue-370 was administered. Sagittal and coronal images were reconstructed. Individualized dose optimization techniques were used for this CT. COMPARISON: 02/22/2020. FINDINGS: Trace right pleural effusion. Heart size is normal. Small epigastric diverticulum. The liver is unremarkable. The gallbladder is unremarkable. The spleen and pancreas are unremarkable. The adrenal glands are normal. Bilateral renal cysts measure up to 4.4 cm. The kidneys are otherwise unremarkable. No stones or hydronephrosis. The aorta is normal in caliber. There is no free fluid, free air or organized collection. Moderately distended, stool-filled colon from the cecum to the sigmoid with transition in the sigmoid colon. There is wall thickening at the sigmoid transition with distal decompression. Mass versus inflammation as a cause of the transition cannot be determined on this study. Mild pericolonic stranding around the descending and sigmoid colon. Mild diverticulosis with no acute diverticulitis. Urinary bladder is unremarkable. Normal abdominal wall. Normal osseous structures. CT/Abdomen/Pelvis WITH Contrast IMPRESSION: 1. Distended colon with pericolonic stranding consistent with infectious or inflammatory colitis. Wall thickening in the mid sigmoid colon may represent inflammation versus mass. GI follow-up is advised to exclude underlying sigmoid malignancy. 2. Trace right pleural effusion. 3. Epigastric diverticulum. 4. Renal cysts. Electronically Signed: Jo Becker MD at 20:59 EDT Tel , Service support ,
== END | disposition home or self-care (01) ==
LOC: RAD 18:18
PROVIDERS: PCP Family Medicine; Visit Provider Family Medicine Geriatric Medicine
DX: R10.9 Unspecified abdominal pain (principal)
CPT/HCPCS: 74177; Q9967

== ENCOUNTER 2020-04-24 17:37 | Emergency (ER) | payer MEDICARE, OTHER, SELFPAY ==
[2020-04-24 17:38] VITALS: BP 174/57; PULSE 77; RESP 17; TEMP 36.6; O2SAT 97; BMI 37.9
--- NOTE | 2020-04-24 18:05 | ED.VIS.GEN ---
History of Present Illness Chief Complaint: Abn Labs Informant: Patient Narrative: 79-year-old female presenting with generalized weakness and low hemoglobin at 7.0 on routine follow-up as an outpatient. She states that she has had regular ostomy output and it has not increased or decreased. She states her stool has been a little bit black always. She states she is been trying to recover but not feeling her strength regain after surgery. She had colostomy placed secondary to colitis in March. She states she has been trying to do physical therapy and they have been pushing her but she feels too weak. She does not feel lightheaded or dizzy. She does not have nausea. She denies abdominal pain. Denies fever or chills. She states she had not had to have a previous blood transfusion after the colostomy. - Past Medical History (1) Colitis Status: Chronic (2) Hypomagnesemia Status: Chronic (3) Hyponatremia Status: Chronic (4) Large bowel obstruction Status: Chronic Past Medical History - Allergies and Home Meds Allergies/Adverse Reactions: Allergies gabapentin Allergy (Verified 04/24/20 17:41) Unknown nortriptyline Allergy (Verified 04/24/20 17:41) Unknown rofecoxib [From Vioxx] Allergy (Verified 04/24/20 17:41) Unknown tacrolimus Allergy (Verified 04/24/20 17:41) Unknown ciprofloxacin Adverse Reaction (Severe, Verified 04/24/20 17:41) seizure seizure metronidazole Adverse Reaction (Severe, Verified 04/24/20 17:41) seizure morphine Adverse Reaction (Verified 04/24/20 17:41) Nausea Primary Care Physician: Nicolas Villegas MD [Primary Care Provider] - Prior records reviewed: Yes Past Medical History: - - Reviewed in problem list Surgical History: appendectomy, cholecystectomy, hysterectomy, total hip arthroplasty - Left., total knee arthroplasty - Right., - - Exploratory laparotomy, carotid endarterectomy. Lives: Alone Smoking Status: Former smoker Alcohol: None Drugs: None - Family History Paternal Family History: Family History (Last Reviewed 04/04/20 @ 11:42 by Deya Lewis) Mother Cancer Father Emphysema of lung Aunt Cancer Grandfather Vascular disease Grandmother Diabetes Brother Cancer Family History: Reports: Pulmonary Disease Maternal Family History: Family History (Last Reviewed 04/04/20 @ 11:42 by Deya Lewis) Mother Cancer Father Emphysema of lung Aunt Cancer Grandfather Vascular disease Grandmother Diabetes Brother Cancer Family History: Reports: Cancer Review of Systems General: Reports: Malaise, - - Generalized weakness. Denies: Chills, Fever Eyes: Denies: Visual changes - bilaterally, Diplopia ENT: Denies: Rhinorrhea, Sore throat Cardiovascular: Denies: Chest pain, Palpitations Respiratory: Denies: Dyspnea, Cough, Dyspnea on exertion Gastrointestinal: Reports: Melena. Denies: Abdominal pain, Nausea, Vomiting, Diarrhea, Hematochezia Genitourinary: Denies: Dysuria, Hematuria, Frequency Musculoskeletal: Denies: Back pain, Extremity Pain Skin: Denies: Rash, Abscess Neurological: Denies: Headache, Parasthesia, Numbness Physical Exam Vital Signs/Narrative: Vital Signs Temp Pulse Resp BP Pulse Ox 04/24/20 17:38 98 F 77 17 174/57 H 97 Inital Vital Signs reviewed: Yes General: Obese, No Acute Distress Head: Normocephalic, Atraumatic Eyes: Perrl, EOMI, Pale conjunctiva ENT: Moist mucous membranes, No rhinorrhea Cardiovascular: Regular rate, Regular rhythm Respiratory: No distress, CTA bilaterally Abdomen: Soft, Nontender, - - The ostomy bag is noted to have dark brown stool with some areas of black stool. Extremities: Nontender, No edema Skin: Pallor. Negative for: No rash, Jaundice Neurological: Alert, Oriented x3 Psychological: Normal affect, Normal Mood Diagnostic/Tx/Re-eval Laboratory Data 04/24/20 04/24/20 04/24/20 17:50 17:50 17:50 WBC 10.5 RBC 2.98 L Hgb 7.9 L Hct 26.2 L MCV 87.9 MCH 26.5 L MCHC 30.2 L RDW Std Deviation 49.1 H RDW Coeff of Blaine 15.5 H Plt Count 336 MPV 9.7 Immature Gran % (Auto) 1.200 H Neut % (Auto) 76.4 H Lymph % (Auto) 5.5 L [place] % (Auto) 11.4 H Eos % (Auto) 4.8 Baso % (Auto) 0.7 Absolute Neuts (auto) 8.0 H Absolute Lymphs (auto) 0.58 L Nucleated RBC % 0 Differential Comment SCANNED PT 16.2 H INR 1.4 Sodium 131 L Potassium 3.7 Chloride 97 L Carbon Dioxide 28.0 Anion Gap 6 BUN 7 Creatinine 0.52 L Estim Creat Clear Calc 34.42 Est GFR (MDRD) Af Amer 147 Est GFR (MDRD) Non-Af 121 BUN/Creatinine Ratio 13.5 Glucose 93 Calcium 7.6 L Magnesium 2.1 Total Bilirubin 0.40 AST 28 ALT 19 Alkaline Phosphatase 220 H Troponin I 0.015 Total Protein 4.7 L Albumin 1.8 L Globulin 2.9 Albumin/Globulin Ratio 0.6 L Urine Color Urine Clarity Urine pH Ur Specific [place] Urine Protein Urine Glucose (UA) Urine Ketones Urine Occult Blood Urine Nitrite Urine Bilirubin Urine Urobilinogen Ur Leukocyte Esterase Urine RBC Urine WBC Ur Squamous Epith Cells Urine Bacteria Urine Mucus Blood Type Antibody Screen 04/24/20 04/24/20 17:50 19:35 WBC RBC Hgb Hct MCV MCH MCHC RDW Std Deviation RDW Coeff of [place]aine Plt Count MPV Immature Gran % (Auto) Neut % (Auto) Lymph % (Auto) [place] % (Auto) Eos % (Auto) Baso % (Auto) Absolute Neuts (auto) Absolute Lymphs (auto) Nucleated RBC % Differential Comment PT INR Sodium Potassium Chloride Carbon Dioxide Anion Gap BUN Creatinine Estim Creat Clear Calc Est GFR (MDRD) Af Amer Est GFR (MDRD) Non-Af BUN/Creatinine Ratio Glucose Calcium Magnesium Total Bilirubin AST ALT Alkaline Phosphatase Troponin I Total Protein Albumin Globulin Albumin/Globulin Ratio Urine Color Yellow Urine Clarity Clear Urine pH 7.0 Ur Specific [place] 1.005 Urine Protein 15 H Urine Glucose (UA) Normal Urine Ketones 5 H Urine Occult Blood Negative Urine Nitrite Negative Urine Bilirubin Negative Urine Urobilinogen Normal Ur Leukocyte Esterase Negative Urine RBC 0 SEEN Urine WBC 0 SEEN Ur Squamous Epith Cells 0-5 SEEN Urine Bacteria 0 SEEN Urine Mucus 0 SEEN Blood Type A NEGATIVE Antibody Screen NEGATIVE - Rhythm Strip Rhythm Strip: Sinus Rhythm Rate: 73 - EKG Initial EKG Interpretation: Sinus Rhythm, Non-Specific ST Changes - Medical Decision Making Patient presents with previous hemoglobin of 7.0 on outpatient basis as well as generalized weakness. She is currently in physical therapy status post colostomy bag placement. We did attempt to do orthostatics however the patient has not progressed to standing yet since her surgery. From laying to sitting she is not orthostatic. She does have skin pallor and pale conjunctiva although her vital signs are stable otherwise. She states she just feels generally weak. Her lab work shows that her hemoglobin is 7.9 which is slightly higher than her previous lab work performed here at [facility]. I do not believe she needs emergent blood transfusion given that her Hemoccult stool is negative. Patient does have low albumin and serum protein. She states she is not been eating much because she does not like the food at her facility. I feel patient is safe to be sent back to half-way facility for rehabilitation. Did speak with the on-call physician for the half-way facility to discuss lab work and findings. She also did not feel that the patient warranted admission, nor did she feel patient needed a blood transfusion. To she is given return precautions. Patient is stable for discharge at this time. Impression: 1. Anemia 2. Generalized weakness ED Disposition - Plan for ED Patient: Disposition: Home or Assisted Living Instructions: ED Anemia Type Not Specified, ED Weakness [facility] Referrals: Nicolas Villegas MD [Primary Care Provider] -
--- NOTE | 2020-04-24 18:10 | EKG12_ITS ---
Test Reason : ABNORMAL LABS Blood Pressure : / mmHG Vent. Rate : 073 BPM Atrial Rate : 073 BPM P-R Int : 172 ms QRS Dur : 082 ms QT Int : 438 ms P-R-T Axes : 053 036 071 degrees QTc Int : 482 ms Normal sinus rhythm Nonspecific T wave abnormality Prolonged QT Abnormal ECG Confirmed by JORGE FLOR, NATALIA ([id number]), food expeditor RC OSEI ([id number]) on 04/25/2020 1:53:04 PM Referred By: YUNI Confirmed By:NATALIA PATEL MD
[2020-04-24 18:33] LABS: Absolute Lymphocyte Count 0.58 X10^3/uL (0.83-4.51); Basophil# 0.07 X10^3/uL; Basophil% 0.7 % (0-1); Eosinophils% 4.8 % (0-5); Hematocrit 26.2 % (37-47); Hemoglobin 7.9 g/dL (12.0-15.0); Lymphocyte # 0.58 X10^3/ul (4.0); Lymphocyte % 5.5 % (19-41); Mean Corp Hgb Conc 30.2 g/dL (32-36); Mean Corpuscular Hgb 26.5 pg (27.0-32.0); Mean Corpuscular Volume 87.9 fL (81-99); Mean Platelet Vol. 9.7 fl (6.2-12.0); Monocyte% 11.4 % (0-10); NRBC Flagged by Analyzer 0 % (0-5); Neutrophil # 8.01 X10^3/uL (2.7-7.7); Neutrophil % 76.4 % (47-70); POSITIVE DIFFERENTIAL YES; Platelet Count 336 K/mm3 (150-450); RBC Distribution Width CV 15.5 % (11.6-14.6); RBC Distribution Width SD 49.1 fl (35.1-43.9); Red Blood Count 2.98 M/mm3 (4.2-5.4); White Blood Count 10.5 K/mm3 (4.4-11.0)
[2020-04-24 18:37] VITALS: BP 165/51; BP 166/51; PULSE 74; PULSE 76
[2020-04-24 18:37] LABS: International Normalized Ratio 1.4; Prothrombin Time (Protime)PT. 16.2 SECONDS (11.7-14.9)
[2020-04-24 18:38] LABS: Differential Indicated SCAN CRITERIA MET
--- NOTE | 2020-04-24 18:40 | ED.RN ---
Pt is nonambulatory and cannot stand for standing portion of orthos. dr. mcginnis made aware.
[2020-04-24 18:53] LABS: ALB/GLOB Ratio 0.6 RATIO (0.9-2.4); AST(SGOT) 28 U/L (15-37); Alanine Aminotransfer ALT/SGPT 19 U/L (13-56); Albumin, Serum 1.8 g/dL (3.2-5.0); Alkaline Phosphatase 220 U/L (45-117); Anion Gap 6 (5-15); BUN 7 mg/dL (7-18); BUN/Creat Ratio 13.5 RATIO (10-20); Calcium,Total 7.6 mg/dL (8.5-10.1); Chloride 97 mmol/L (98-107); Creatinine, Serum 0.52 mg/dL (0.55-1.02); EST Glomerular Filtration Rate 121 mL/min (>60); Est Glom Filt Rate - Afr Amer 147 mL/min (>60); Estimated Creatinine Clearance 34.42 ml/min; Globulin 2.9 g/dL (2.2-4.2); Glucose 93 mg/dL (74-106); Magnesium 2.1 mg/dL (1.6-2.6); Potassium 3.7 mmol/L (3.5-5.1); Protein, Total 4.7 g/dL (6.4-8.2); Sodium Level 131 mmol/L (136-145)
[2020-04-24 19:13] LABS: Differential Comment SCANNED
[2020-04-24 19:43] LABS: Bacteria 0 SEEN /hpf (None Seen); Mucous, Urine 0 SEEN /hpf (<or=2+); Red Blood Cells-Urine 0 SEEN /hpf (0-5); White Blood Cells 0 SEEN /hpf (0-5)
[2020-04-24 19:49] LABS: Color, Urine Yellow (Yellow); Glucose, Dipstick Normal (Normal); Ketone-Dipstick 5 mg/dl (Negative); Leukocyte Esterase-Dipstick Negative /ul (Negative); Nitrite-Dipstick Negative (Negative); Occult Blood-Urine Negative /ul (Negative); Protein-Dipstick 15 mg/dl (Negative); Specific Gravity, Urine 1.005 (1.002-1.030); Urine Bilirubin Dipstick Negative (Negative); Urine Clarity Clear (Clear); Urine Urobilinogen Normal (Normal)
[2020-04-24 19:55] LABS: Squamous Epithelial Cells - UA 0-5 SEEN /hpf (5-10)
[2020-04-24 20:14] VITALS: BP 160/48; PULSE 75; RESP 18; O2SAT 97
[2020-04-24 21:18] VITALS: BP 175/52; PULSE 74; RESP 25; O2SAT 95
--- NOTE | 2020-04-24 21:19 | ED.RN ---
OFFERED TO EMPTY ILIOSTOMY BAG, PT REFUSED.
== END 2020-04-24 22:36 | disposition home or self-care (01) ==
PROVIDERS: Emergency Provider Student in an Organized Health Care Education/Training Program; PCP Family Medicine
DX: D64.9 Anemia, unspecified (principal); R53.1 Weakness; Z93.3 Colostomy status; Z87.891 Personal history of nicotine dependence; Z79.02 Long term (current) use of antithrombotics/antiplatelets
CPT/HCPCS: 80053; 81001; 82274; 83735; 84484; 85025; 85610; 86850; 86900; 86901; 93005; 96360; 96361; 99285; J7040; A4216

== ENCOUNTER 2020-05-01 19:03 | Emergency (ER) | payer MEDICARE, OTHER, SELFPAY ==
[2020-05-01 19:04] VITALS: BP 175/50; PULSE 79; RESP 16; TEMP 37.1; O2SAT 94; BMI 37.2
--- NOTE | 2020-05-01 19:32 | ED.VIS.GEN ---
History of Present Illness Chief Complaint: Abn Labs Detail of Chief Complaint: Low hemoglobin, generalized weakness Informant: Patient Narrative: Patient presents due to low hemoglobin obtained blood draw at the [facility]. Hemoglobin was reportedly 6.8. 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 Patient states since that time she had trouble bouncing back and just feels very weak and tired. Patient was seen here on the after [facility] labs indicated her hemoglobin was 7.0. Repeat here was 7.9 and her stool guaiac was negative. She was sent back to the ECF. - Past Medical History (1) Benign essential hypertension Status: Chronic (2) COPD (chronic obstructive pulmonary disease) Status: Chronic (3) Carotid stenosis Status: Chronic (4) Chronic kidney disease, stage 2 (mild) Status: Chronic (5) Coronary artery disease Status: Chronic (6) GERD (gastroesophageal reflux disease) Status: Chronic (7) HLD (hyperlipidemia) Status: Chronic (8) Hypertension Status: Chronic (9) Pulmonary hypertension Status: Chronic Comment: RVSP 55 (10) Seizure Status: Chronic Past Medical History - Allergies and Home Meds Allergies/Adverse Reactions: Allergies gabapentin Allergy (Verified 04/24/20 17:41) Unknown nortriptyline Allergy (Verified 04/24/20 17:41) Unknown rofecoxib [From Vioxx] Allergy (Verified 04/24/20 17:41) Unknown tacrolimus Allergy (Verified 04/24/20 17:41) Unknown ciprofloxacin Adverse Reaction (Severe, Verified 04/24/20 17:41) seizure seizure metronidazole Adverse Reaction (Severe, Verified 04/24/20 17:41) seizure morphine Adverse Reaction (Verified 04/24/20 17:41) Nausea Primary Care Physician: Nicolas Villegas MD [Primary Care Provider] - Prior records reviewed: Yes Surgical History: appendectomy, cholecystectomy, hysterectomy, total hip arthroplasty - Left., total knee arthroplasty - Right., - - Exploratory laparotomy, carotid endarterectomy. Lives: Shelter Smoking Status: Former smoker - Family History Paternal Family History: Family History (Last Reviewed 04/04/20 @ 11:42 by Deya Lewis) Mother Cancer Father Emphysema of lung Aunt Cancer Grandfather Vascular disease Grandmother Diabetes Brother Cancer Family History: Reports: Pulmonary Disease Maternal Family History: Family History (Last Reviewed 04/04/20 @ 11:42 by Deya Lewis) Mother Cancer Father Emphysema of lung Aunt Cancer Grandfather Vascular disease Grandmother Diabetes Brother Cancer Family History: Reports: Cancer Review of Systems General: Denies: Chills, Fever Eyes: Denies: Visual changes - bilaterally ENT: Denies: Bilateral ear pain Cardiovascular: Denies: Chest pain Respiratory: Denies: Dyspnea, Cough Gastrointestinal: Denies: Abdominal pain, Vomiting Neurological: Reports: Weakness - Generalized weakness Hematologic: Denies: Easy bruising, Easy bleeding Allergy: Denies: Uticaria Physical Exam Vital Signs/Narrative: Vital Signs Temp Pulse Resp BP Pulse Ox 05/01/20 19:04 98.8 F 79 16 175/50 H 94 Inital Vital Signs reviewed: Yes General: Well nourished, Well developed Head: Normocephalic ENT: Moist mucous membranes Neck: Supple Cardiovascular: Regular rate, Regular rhythm Respiratory: No distress, CTA bilaterally Abdomen: Soft, Nontender, - - Colostomy in place in the left lower quadrant. Black stool noted. Skin: Pallor Neurological: Alert, Oriented x3 Psychological: Normal affect Diagnostic/Tx/Re-eval 05/01/20 20:16 Stool Stool Occult Blood (MICHAEL) - Final Occult Blood Positive Laboratory Results 05/01/20 05/01/20 05/01/20 19:25 19:25 19:25 WBC 11.0 RBC 2.86 L Hgb 7.6 L Hct 25.4 L MCV 88.8 MCH 26.6 L MCHC 29.9 L RDW Std Deviation 52.2 H RDW Coeff of [place] 15.9 H Plt Count 261 MPV 9.0 Immature Gran % (Auto) 0.700 Neut % (Auto) 77.6 H Lymph % (Auto) 5.9 L Nance % (Auto) 9.1 Eos % (Auto) 5.9 H Baso % (Auto) 0.8 Absolute Neuts (auto) 8.5 H Absolute Lymphs (auto) 0.65 L Nucleated RBC % 0 PT 16.5 H INR 1.4 APTT 39.0 H Sodium 133 L Potassium 3.4 L Chloride 99 Carbon Dioxide 28.0 Anion Gap 6 BUN 10 Creatinine 0.63 Estim Creat Clear Calc 34.42 Est GFR (MDRD) Af Amer 117 Est GFR (MDRD) Non-Af 97 BUN/Creatinine Ratio 15.9 Glucose 104 Calcium 7.8 L Crossmatch 05/01/20 19:25 WBC RBC Hgb Hct MCV MCH MCHC RDW Std Deviation RDW Coeff of [place] Plt Count MPV Immature Gran % (Auto) Neut % (Auto) Lymph % (Auto) Nance % (Auto) Eos % (Auto) Baso % (Auto) Absolute Neuts (auto) Absolute Lymphs (auto) Nucleated RBC % PT INR APTT Sodium Potassium Chloride Carbon Dioxide Anion Gap BUN Creatinine Estim Creat Clear Calc Est GFR (MDRD) Af Amer Est GFR (MDRD) Non-Af BUN/Creatinine Ratio Glucose Calcium Crossmatch See Detail - Medical Decision Making Patient's labs are reviewed. Hemoglobin is 7.6 here tonight. This is consistent with her hemoglobin values when she was admitted to the hospital in March. Her stool guaiac tonight, however, is positive. Patient is on chronic iron so her stool always appears black. I spoke with the patient's surgeon, Dr. Cortez. He states he was thinking about scoping her as an outpatient anyway. Unfortunately because of the holiday week staff would not be available to do endoscopy as an inpatient this week. Patient's hemoglobin has been stable for quite some time. We will give her 1 unit of blood tonight and allow her to go back to her retirement. longterm is to call Dr. Cortez's office tomorrow to get instructions for bowel prep and he will schedule her for an outpatient scope next week. Patient is in agreement with this plan. I also spoke with the physician covering for the retirement doc and they are in agreement as well. ED Disposition - Plan for ED Patient: Disposition: Home or Assisted Living Diagnosis: Anemia, GI bleed Instructions: ED Anemia Type Not Specified, ED Hematochezia Stable Referrals: David Cortez MD [STAFF PHYSICIAN] - As soon as possible Additional Instructions: Please call Dr. Cortez's office tomorrow. They will schedule the patient for an outpatient scope next week. They will give you instruction for bowel prep as well as the date and time of the procedure.
[2020-05-01 19:46] LABS: Absolute Lymphocyte Count 0.65 X10^3/uL (0.83-4.51); Absolute Neutrophil Count 8.5 X10^3/uL (2.0-7.7); Basophil# 0.09 X10^3/uL; Basophil% 0.8 % (0-1); Eosinophil# 0.65 X10^3/uL; Eosinophils% 5.9 % (0-5); Hematocrit 25.4 % (37-47); Hemoglobin 7.6 g/dL (12.0-15.0); Lymphocyte # 0.65 X10^3/ul (4.0); Lymphocyte % 5.9 % (19-41); Mean Corp Hgb Conc 29.9 g/dL (32-36); Mean Corpuscular Hgb 26.6 pg (27.0-32.0); Mean Corpuscular Volume 88.8 fL (81-99); Monocyte% 9.1 % (0-10); NRBC Flagged by Analyzer 0 % (0-5); Neutrophil # 8.49 X10^3/uL (2.7-7.7); Neutrophil % 77.6 % (47-70); Platelet Count 261 K/mm3 (150-450); RBC Distribution Width CV 15.9 % (11.6-14.6); RBC Distribution Width SD 52.2 fl (35.1-43.9); Red Blood Count 2.86 M/mm3 (4.2-5.4)
[2020-05-01 20:00] LABS: Anion Gap 6 (5-15); BUN 10 mg/dL (7-18); BUN/Creat Ratio 15.9 RATIO (10-20); Calcium,Total 7.8 mg/dL (8.5-10.1); Chloride 99 mmol/L (98-107); Creatinine, Serum 0.63 mg/dL (0.55-1.02); EST Glomerular Filtration Rate 97 mL/min (>60); Est Glom Filt Rate - Afr Amer 117 mL/min (>60); Estimated Creatinine Clearance 34.42 ml/min; Glucose 104 mg/dL (74-106); Potassium 3.4 mmol/L (3.5-5.1); Sodium Level 133 mmol/L (136-145)
[2020-05-01 20:01] LABS: International Normalized Ratio 1.4; Prothrombin Time (Protime)PT. 16.5 SECONDS (11.7-14.9)
[2020-05-01 21:14] VITALS: BP 176/47; PULSE 75; RESP 18; O2SAT 97
[2020-05-01 23:13] VITALS: BP 189/59; PULSE 79; RESP 18; O2SAT 96
[2020-05-02 00:11] VITALS: BP 171/45; PULSE 78; RESP 18; TEMP 36.8; O2SAT 95
[2020-05-02 00:17] VITALS: BP 169/52; PULSE 79; RESP 18; TEMP 36.8; O2SAT 95
[2020-05-02 00:32] VITALS: BP 167/46; PULSE 79; RESP 19; TEMP 36.9; O2SAT 94
[2020-05-02 01:09] VITALS: BP 168/48; PULSE 78; RESP 18; O2SAT 95
[2020-05-02 02:36] VITALS: BP 166/62; PULSE 80; RESP 20; TEMP 36.3; O2SAT 97
== END 2020-05-02 03:06 | disposition home or self-care (01) ==
PROVIDERS: Emergency Provider Emergency Medicine; PCP Family Medicine
DX: K92.2 Gastrointestinal hemorrhage, unspecified (principal); D64.9 Anemia, unspecified; I12.9 Hypertensive chronic kidney disease with stage 1 through stage 4 chronic kidney disease, or unspecified chronic kidney disease; J44.9 Chronic obstructive pulmonary disease, unspecified; N18.2 Chronic kidney disease, stage 2 (mild); I25.10 Atherosclerotic heart disease of native coronary artery without angina pectoris; K21.9 Gastro-esophageal reflux disease without esophagitis; E78.5 Hyperlipidemia, unspecified; Z87.891 Personal history of nicotine dependence; Z93.3 Colostomy status; Z79.02 Long term (current) use of antithrombotics/antiplatelets; Z79.899 Other long term (current) drug therapy
CPT/HCPCS: 36430; 80048; 82274; 85025; 85610; 85730; 86850; 86900; 86901; 86920; 86922; 99285; J7050; P9016; A4216

== ENCOUNTER 2020-05-12 02:21 | Inpatient (IN) | payer MEDICARE, OTHER, SELFPAY ==
[2020-05-12] VITALS (21 sets, daily range): BP systolic 132–221; BP diastolic 47–87; PULSE 71–94; RESP 16–26; TEMP 36.1–37.6; O2SAT 92–99; BMI 35.6
--- NOTE | 2020-05-12 02:23 | RAD_ITS ---
STUDY: X-RAY CHEST REASON FOR EXAM: Female, 79 years old patient with recent stroke and COVID infection. TECHNIQUE: Single AP portable view of the chest. COMPARISON: Chest radiograph dated 03/04/2020. FINDINGS: Cardiac monitoring leads are present. The lungs are expanded. There is left lower lobe airspace consolidation and atelectasis suggesting pneumonia. There is bilateral interstitial thickening present in both lungs. Appears to be small right-sided pleural effusion versus pleural thickening similar to previous study. There is mild bilateral apical pleural thickening. There is mild cardiac enlargement. Normal mediastinum and surekha. Normal visualized pulmonary arteries. There is atherosclerotic calcification of the aortic arch with tortuosity. Normal visualized thoracic spine. Normal visualized ribs, clavicles, and shoulders. There is no demonstrated abnormality of the visualized soft tissue structures of the upper abdomen. RAD/Chest 1 View IMPRESSION: Left lower lobe airspace consolidation suggesting pneumonia. Electronically Signed: Macie Gipson MD at 4:01 EST , Service support ,
--- NOTE | 2020-05-12 02:23 | CT_ITS ---
STUDY: CT HEAD STROKE PROTOCOL W/O CONTRAST INJECTION REASON FOR EXAM: Female, 79 years old. Strokelike symptoms RADIATION DOSAGE (If Supplied By Facility): CTDIvol = ( 44.99 ) mGy, DLP = ( 779.24 ) mGycm TECHNIQUE: Transaxial CT imaging of the brain was performed without administration of intravenous contrast material. Individualized dose optimization techniques were used for this CT. COMPARISON: No relevant priors. FINDINGS: Normal soft tissue structures. Normal calvarium. There is mild cerebral atrophy with widening of the extra-axial spaces and ventricular dilatation. There is moderate bilateral periventricular and subcortical white matter hypoattenuation which is symmetric in distribution. Well-defined hypoattenuated lesion in the left basal ganglia. Normal basal ganglia and thalami. Normal brainstem. Normal cerebellum. There is no intracranial hemorrhage. There are no findings of an acute ischemic infarction. There is mild mucoperiosteal thickening of the paranasal sinuses. ASPECT score: CT/STROKE Brain/Head without Cont IMPRESSION: 1. No evidence of an acute intracranial abnormality. 2. Moderate bilateral periventricular and subcortical white matter and basal ganglial chronic small vessel disease with age appropriate cerebral atrophy. 3. Chronic paranasal sinus disease N.B. : The above information has been verbally conveyed by John Martins MD to Cesar Weller MD, on 05/12/2020 02:42:08 (ET). Electronically Signed: John Martins MD at 2:44 EST Tel , Service support ,
--- NOTE | 2020-05-12 02:23 | EKG12_ITS ---
Test Reason : NEURO Blood Pressure : / mmHG Vent. Rate : 088 BPM Atrial Rate : 088 BPM P-R Int : 176 ms QRS Dur : 086 ms QT Int : 390 ms P-R-T Axes : 072 024 059 degrees QTc Int : 471 ms Normal sinus rhythm ST & T wave abnormaltiy, nonspecific Ischemia Prolonged QT Abnormal ECG Confirmed by JORGE FLOR, NATALIA ([id number]), research editor RC OSEI ([id number]) on 05/14/2020 1:23:49 PM Referred By: SHALOM Confirmed By:NATALIA PATEL MD
--- NOTE | 2020-05-12 02:24 | CT_ITS ---
We are attempting to reach an attending provider to discuss findings. An addendum with communication details will be sent when the communication is complete. STUDY: CTA HEAD AND NECK WITH CONTRAST REASON FOR EXAM: Female, 79 years old. Left-sided facial droop and left-sided weakness RADIATION DOSAGE (If Supplied By Facility): CTDIvol = ( 17.52 ) mGy, DLP = ( 590.81 ) mGycm TECHNIQUE: CT angiography was performed with a multi-detector CT scanner. Data acquisition was obtained from the skull base through the vertex following intravenous administration of IV 100mL [id number]-[id number]. MIP images were reconstructed from the axial data set. Post-processing of the angiographic images was performed, with multiplanar reformation and 3D reconstruction. Individualized dose optimization techniques were used for this CT. COMPARISON: No relevant priors. FINDINGS: Normal bilateral petrous carotid arteries. Normal right cavernous carotid artery with a normal supraclinoid bifurcation. Normal left cavernous carotid artery with a normal supraclinoid bifurcation. Normal right A1 segments of the anterior cerebral artery. Normal left A1 segments of the anterior cerebral artery. Normal intact anterior communicating artery (ACOM). Normal bilateral A2 segments of the anterior cerebral arteries. Normal right M1 and M2 segments of the middle cerebral arteries, with a normal M1 bifurcation. Normal left M1 and M2 segments of the middle cerebral arteries, with a normal M1 bifurcation. Normal right posterior communicating artery (PCOM). Normal left posterior communicating artery (PCOM). Normal bilateral vertebral arteries. Normal basilar artery with a normal basilar bifurcation. The visualized bilateral superior cerebellar (SCA) arteries are normal. Normal bilateral P1, P2 and visualized P3 segments of the posterior cerebral arteries. There is no demonstrated aneurysm of the [place] of [place]. There is no demonstrated abnormality of the visualized brain. AORTIC ARCH: Normal visualized aortic arch. Normal origins of the brachiocephalic, left common carotid, and left subclavian arteries. RIGHT CAROTID ARTERIES: Indwelling right common carotid artery stent with mild focal stenosis at its distal attachment.. Normal right common carotid bulb. Normal origin of the right internal carotid (ICA) artery without a hemodynamically significant stenosis. Normal visualized cervical portion of the right internal carotid artery. 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 LEFT CAROTID ARTERIES: Normal left common carotid artery (CCA). Normal left common carotid bulb. Normal origin of the left internal carotid (ICA) artery without a hemodynamically significant stenosis. Normal visualized cervical portion of the left internal carotid artery. Normal origin of the left external carotid artery (ECA). VERTEBRAL ARTERIES: Normal bilateral vertebral arteries. The left transverse dural sinus is absent. The left sigmoid dural sinuses diminutive in size. Engorged collateral venous channels coursing through the posterior right neck contiguous with the right sigmoid sinus. CT/STROKE CTA Head AND Neck W/Con IMPRESSION: 1. 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 2. Indwelling right common carotid arterial stent with mild focal stenosis at its distal attachment. 3. 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 4. Normal CT angiogram of the head. Electronically Signed: John Martins MD at 3:04 EST Tel , Service support ,
--- NOTE | 2020-05-12 02:33 | ED.DCSUM_ITS ---
History of Present Illness Chief Complaint: Neuro S/Sx Informant: Information Manager Narrative: Patient is a 79-year-old female with a past medical history of seizures, hypertension, anemia, CKD who presents to the emergency department for altered mental status, left arm contracture and weakness of left side. Her last known well was 7:45 PM yesterday. Patient is on aspirin and Plavix but no other anticoagulation. No known history of strokes previously. Upon arrival to the emergency department patient is altered and following some commands but not others. She is unable to help with providing complete history. Per paramedics patient's baseline is alert and oriented times for 3. Patient is coming from halfway. Past Medical History - Allergies and Home Meds Allergies/Adverse Reactions: Allergies gabapentin Allergy (Verified 05/12/20 02:45) Unknown nortriptyline Allergy (Verified 05/12/20 02:45) Unknown rofecoxib [From Vioxx] Allergy (Verified 05/12/20 02:45) Unknown tacrolimus Allergy (Verified 05/12/20 02:45) Unknown ciprofloxacin Adverse Reaction (Severe, Verified 05/12/20 02:45) seizure seizure metronidazole Adverse Reaction (Severe, Verified 05/12/20 02:45) seizure morphine Adverse Reaction (Verified 05/12/20 02:45) Nausea Prior records reviewed: Yes Surgical History: appendectomy, cholecystectomy, hysterectomy, total hip arth roplasty - Left., total knee arthroplasty - Right., - - Exploratory laparotomy, carotid endarterectomy. Smoking Status: Former smoker - Family History Paternal Family History: Family History (Last Reviewed 04/04/20 @ 11:42 by Deya Lewis) Mother Cancer Father Emphysema of lung Aunt Cancer Grandfather Vascular disease Grandmother Diabetes Brother Cancer Family History: Reports: Pulmonary Disease Maternal Family History: Family History (Last Reviewed 04/04/20 @ 11:42 by Deya Lewis) Mother Cancer Father Emphysema of lung Aunt Cancer Grandfather Vascular disease Grandmother Diabetes Brother Cancer Family History: Reports: Cancer Review of Systems ROS: Unable to Obtain All systems negative except as indicated General: Denies: Chills, Fever Eyes: Denies: Blurred Vision - bilaterally Cardiovascular: Denies: Chest pain Respiratory: Reports: Cough. Denies: Dyspnea, Sputum Gastrointestinal: Denies: Abdominal pain, Nausea, Vomiting Genitourinary: Denies: Dysuria, Hematuria Physical Exam Vital Signs/Narrative: Vital Signs Temp Pulse Resp BP Pulse Ox 05/12/20 02:22 97.1 F L 94 18 194/80 H 92 Inital Vital Signs reviewed: Yes General: Well nourished, Well developed Head: Normocephalic, Atraumatic Eyes: Perrl, EOMI ENT: Moist mucous membranes Neck: Supple Cardiovascular: Regular rate, Regular rhythm Respiratory: No distress Abdomen: Soft, Nondistended, Tender Extremities: No edema, - - Left wrist is contractured in flexion. She has difficulty moving lower extremities. Skin: Pallor Neurological: Alert, Oriented x3, - - Patient denies loss of sensation. She takes frequent redirecting to answer questions. She does stare off. She is able to lift both arms but the left wrist is in flexed position. Unable to lift legs bilaterally. Diagnostic/Tx/Re-eval - EKG Initial EKG Interpretation: - - Rate 88 bpm normal sinus rhythm. Normal intervals. Normal axis. Some nonspecific ST abnormalities in V1 and V2 with inverted T waves. No significant ST elevations or reciprocal changes. Prior EKG for comparison was performed on April 24, 2020 with a similar appearance. - Medical Decision Making Patient presents to the ED for what initially sounded like acute stroke symptoms although out of the TPA window given the fact her last known well was at 7:45 PM yesterday. Upon arrival to the emergency department?her left hand is in a flexed position. She is answering questions appropriately but delayed response to most questions and instructions. CT scan of the head and neck showed a chronic external carotid occlusion but no acute intracranial abnormalities. She said she did have a cough and felt like she had a fever so coronavirus test was obtained. This did come back positive. Her lab work did not reveal any significant acute abnormalities. She is anemic but this is elevated compared to her last lab draw. We did perform a straight catheter to get a urine sample. A very thick yellow discharge was obtained. Repeat abdominal exam patient stated that her abdomen was very tender. At that time CT scan of the abdomen/pelvis obtained. CT scan did not show any acute surgical emergency. It was significant for colitis. She has pleural effusion as well as pericardial effusion. She has been hemodynamically stable. Her urine did show evidence of urinary tract infection and she is started on Rocephin. Will bring her into the hospital for further evaluation and management this time. She understands and is agreeable this plan. ED Disposition - Plan for ED Patient: Disposition: Acute Care Hospital [facility] Diagnosis: COVID-19, Encephalopathy, Contracture of wrist, UTI (urinary tract infection), Chronic anemia
[2020-05-12 02:44] LABS: Absolute Lymphocyte Count 0.63 X10^3/uL (0.83-4.51); Absolute Neutrophil Count 5.2 X10^3/uL (2.0-7.7); Basophil# 0.05 X10^3/uL; Basophil% 0.7 % (0-1); Eosinophil# 0.07 X10^3/uL; Hematocrit 28.2 % (37-47); Hemoglobin 8.5 g/dL (12.0-15.0); Lymphocyte # 0.63 X10^3/ul (4.0); Lymphocyte % 8.9 % (19-41); Mean Corp Hgb Conc 30.1 g/dL (32-36); Mean Corpuscular Hgb 26.3 pg (27.0-32.0); Mean Corpuscular Volume 87.3 fL (81-99); Mean Platelet Vol. 9.8 fl (6.2-12.0); Monocyte# 1.06 X10^3/uL; Monocyte% 15.1 % (0-10); NRBC Flagged by Analyzer 0 % (0-5); Neutrophil % 73.9 % (47-70); Platelet Count 237 K/mm3 (150-450); RBC Distribution Width CV 16.8 % (11.6-14.6); RBC Distribution Width SD 54.2 fl (35.1-43.9); Red Blood Count 3.23 M/mm3 (4.2-5.4)
[2020-05-12 02:50] LABS: International Normalized Ratio 1.3
[2020-05-12 02:51] LABS: Partial Thromboplast Time 40.4 Seconds (24.1-36.2)
[2020-05-12 03:00] LABS: Anion Gap 4 (5-15); BUN 20 mg/dL (7-18); BUN/Creat Ratio 25.3 RATIO (10-20); Calcium,Total 7.9 mg/dL (8.5-10.1); Chloride 103 mmol/L (98-107); Creatinine, Serum 0.79 mg/dL (0.55-1.02); EST Glomerular Filtration Rate 75 mL/min (>60); Est Glom Filt Rate - Afr Amer 90 mL/min (>60); Estimated Creatinine Clearance 34.42 ml/min; Glucose 98 mg/dL (74-106); Potassium 3.7 mmol/L (3.5-5.1); Sodium Level 138 mmol/L (136-145)
--- NOTE | 2020-05-12 03:21 | ED.RN ---
THIS RN CALLED LOLY VIVEROS AT [facility] TO INFORM THEM THAT THE PATIENT'S RAPID COVID RESULTS CAME BACK POSITIVE.
[2020-05-12 03:25] LABS: Magnesium 1.7 mg/dL (1.6-2.6)
--- NOTE | 2020-05-12 04:49 | HP.PCM_ITS ---
Problem List (1) COVID-19 Status: Acute (2) Encephalopathy Status: Acute (3) Contracture of wrist Status: Acute (4) UTI (urinary tract infection) Status: Acute (5) Colitis Status: Chronic (6) Cystitis Status: Chronic (7) Polymyalgia rheumatica Status: Chronic (8) Generalized weakness Status: Inactive (9) Debility Status: Chronic (10) Fall Status: Chronic (11) Pancolitis Status: Chronic (12) Diarrhea Status: Chronic (13) Ileus Status: Chronic (14) Lymphedema Status: Chronic (15) Hypertension Status: Chronic Qualifiers: Hypertension type: essential hypertension Qualified Code(s): I10 - Essential (primary) hypertension (16) Chronic kidney disease, stage 2 (mild) Status: Chronic (17) GERD (gastroesophageal reflux disease) Status: Chronic Qualifiers: Esophagitis presence: esophagitis presence not specified Qualified Code(s): K21.9 - Gastro-esophageal reflux disease without esophagitis (18) Coronary artery disease Status: Chronic Qualifiers: Coronary Disease-Associated Artery/Lesion type: unspecified vessel or lesion type [place] vs. transplanted heart: unspecified whether [place] or transplanted heart Associated angina: angina presence unspecified Qualified Code(s): I25.10 - Atherosclerotic heart disease of [place] coronary artery without angina pectoris (19) Seizure Status: Chronic (20) Hypomagnesemia Status: Chronic (21) Hyponatremia Status: Chronic (22) Large bowel obstruction Status: Chronic (23) Obstruction of colon Status: Inactive (24) BMI 36.0-36.9,adult Status: Chronic (25) Pulmonary hypertension Status: Chronic Comment: RVSP 55 (26) COPD (chronic obstructive pulmonary disease) Status: Chronic Qualifiers: COPD type: unspecified COPD Qualified Code(s): J44.9 - Chronic obstructive pulmonary disease, unspecified (27) AILYN (obstructive sleep apnea) Status: Chronic Comment: AHI 115 and titrated to nasal CPAP 14 cm of water (28) Atherosclerotic heart disease of [place] coronary artery without angina pectoris Status: Chronic Qualifiers: (29) Chronic renal insufficiency, stage II (mild) Status: Chronic (30) Hyperglycemia, unspecified Status: Chronic (31) Carotid stenosis Status: Chronic Qualifiers: Laterality: unspecified laterality Qualified Code(s): I65.29 - Occlusion and stenosis of unspecified carotid artery (32) Renal artery stenosis Status: Chronic (33) HLD (hyperlipidemia) Status: Chronic Qualifiers: Hyperlipidemia type: unspecified Qualified Code(s): E78.5 - Hyperlipidemia, unspecified (34) Benign essential hypertension Status: Chronic History of Present Illness Date of Admission: 05/12/20 Chief Complaint: left arm weakness and contracture The patient is a 79 year old F with a significant history of questionable seizure; hypertension; anemia; and CKD who presented emergency department with left arm weakness that started on the same day of presentation. Also, her left hand is contracted. Reportedly patient had left-sided facial droop at the senior living. Further patient had lethargy earlier in the day. While at the emergency department and when patient was being straight cathed for urine she had extreme acute tenderness at her groin area and fecal looking yellowish liquid was coming out from her introitus. Past Medical History Past Medical History (Chronic Problems): Chronic Problems (Last Reviewed 05/12/20 @ 06:[address] Cesar Chandra MD) Chronic anemia (Chronic) Colitis (Chronic) Cystitis (Chronic) Polymyalgia rheumatica (Chronic) Debility (Chronic) Fall (Chronic) Pancolitis (Chronic) Diarrhea (Chronic) Ileus (Chronic) Lymphedema (Chronic) Hypertension (Chronic) Chronic kidney disease, stage 2 (mild) (Chronic) GERD (gastroesophageal reflux disease) (Chronic) Coronary artery disease (Chronic) Seizure (Chronic) Hypomagnesemia (Chronic) Hyponatremia (Chronic) Large bowel obstruction (Chronic) BMI 36.0-36.9,adult (Chronic) Pulmonary hypertension (Chronic) RVSP 55 COPD (chronic obstructive pulmonary disease) (Chronic) AILYN (obstructive sleep apnea) (Chronic) AHI 115 and titrated to nasal CPAP 14 cm of water Atherosclerotic heart disease of [place] coronary artery without angina pectoris (Chronic) Chronic renal insufficiency, stage II (mild) (Chronic) Hyperglycemia, unspecified (Chronic) Carotid stenosis (Chronic) Renal artery stenosis (Chronic) HLD (hyperlipidemia) (Chronic) Benign essential hypertension (Chronic) Medical History: Medical History (Last Reviewed 05/12/20 @ 06:[address] Cesar Chandra MD) Severe sepsis (Inactive) A41.9, R65.20 Colitis (Chronic) K52.9 Cystitis (Chronic) N30.90 Polymyalgia rheumatica (Chronic) M35.3 Generalized weakness (Acute) R53.1 Debility (Acute) R53.81 Fall (Chronic) W19.XXXA Pancolitis (Chronic) K51.00 Diarrhea (Chronic) R19.7 Ileus (Chronic) K56.7 Lymphedema (Chronic) I89.0 Hypertension (Chronic) I10 Chronic kidney disease, stage 2 (mild) (Chronic) N18.2 GERD (gastroesophageal reflux disease) (Chronic) K21.9 Coronary artery disease (Chronic) I25.10 Seizure (Chronic) R56.9 Hypomagnesemia (Chronic) E83.42 Hyponatremia (Chronic) E87.1 Large bowel obstruction (Chronic) K56.609 Obstruction of colon (Acute) K56.609 BMI 36.0-36.9,adult (Chronic) Z68.36 Pulmonary hypertension (Chronic) I27.20 RVSP 55 COPD (chronic obstructive pulmonary disease) (Chronic) J44.9 AILYN (obstructive sleep apnea) (Chronic) G47.33 AHI 115 and titrated to nasal CPAP 14 cm of water Atherosclerotic heart disease of [place] coronary artery without angina pectoris (Chronic) I25.10 Acute respiratory failure with hypoxia (Inactive) J96.01 Right lower lobe pneumonia (Inactive) J18.1 Sinus tachycardia by electrocardiogram (Inactive) R00.0 Chronic renal insufficiency, stage II (mild) (Chronic) N18.2 Hyperglycemia, unspecified (Chronic) R73.9 Carotid stenosis (Chronic) I65.29 Renal artery stenosis (Chronic) I70.1 HLD (hyperlipidemia) (Chronic) E78.5 Benign essential hypertension (Chronic) I10 Acute kidney insufficiency N28.9 NSTEMI (non-ST elevated myocardial infarction) I21.4 Barretts esophagus K22.70 Cerebrovascular disease I67.9 Former smoker, stopped smoking many years ago Z87.891 History of bleeding peptic ulcer Z87.11 Osteoarthritis Dehydration (Resolved) E86.0 Pneumonia J18.9 Severe sepsis A41.9, R65.20 Allergies gabapentin Allergy (Verified 05/12/20 02:45) Unknown nortriptyline Allergy (Verified 05/12/20 02:45) Unknown rofecoxib [From Vioxx] Allergy (Verified 05/12/20 02:45) Unknown tacrolimus Allergy (Verified 05/12/20 02:45) Unknown ciprofloxacin Adverse Reaction (Severe, Verified 05/12/20 02:45) seizure seizure metronidazole Adverse Reaction (Severe, Verified 05/12/20 02:45) seizure morphine Adverse Reaction (Verified 05/12/20 02:45) Nausea Home Medications: Ambulatory Orders Medication Instructions Recorded Calcium Carbonate [Tums] 1,000 mg PO BIDCM tab 03/15/20 Carvedilol [Coreg (Beta Gertrudis)] 25 mg PO BID tab 03/15/20 Magnesium Oxide 400 mg PO BID #60 tab 03/15/20 Menthol/Lanolin/Calamine/Znox 1 applic TOPICAL BID tube 03/15/20 [Calmoseptine Ointment] levETIRAcetam tablet [Keppra 500 mg PO BID tab 03/15/20 tablet] Iron Polysaccharide Complex 150 mg PO BID 04/24/20 [Polysaccharide Iron] Melatonin 5 mg PO QHS PRN 04/24/20 Nystatin [Mycostatin] 1 applic TOPICAL BID 04/24/20 Oxycodone HCl 5 mg PO Q6H PRN PRN 04/24/20 Acetaminophen [Tylenol] 650 mg PO Q6H PRN PRN 05/01/20 Amlodipine [Norvasc] 2.5 mg PO DAILY 05/01/20 Aspirin [Aspirin, Baby] 81 mg PO DAILY@0800 05/01/20 Cholecalciferol (Vitamin D3) 2,000 unit PO DAILY 05/01/20 [D3-2000] Clopidogrel Bisulfate [Plavix] 75 mg PO DAILY 05/01/20 Leflunomide 20 mg PO DAILY 05/01/20 Losartan Potassium [Cozaar] 100 mg PO DAILY 05/01/20 Pantoprazole Sodium [Protonix] 40 mg PO DAILY 05/01/20 Pravastatin Sodium [Pravachol] 20 mg PO QHS 05/01/20 Surgical History: Surgical History (Last Reviewed 05/12/20 @ 06:[address] Cesar Chandra MD) H/O carotid endarterectomy Z98.890 History of cholecystectomy Z90.49 History of hysterectomy Z90.710 History of left hip replacement Z96.642 History of total right knee replacement Z96.651 Surgical History: appendectomy, cholecystectomy, hysterectomy, total hip arthroplasty - Left., total knee arthroplasty - Right., - - Exploratory laparotomy, carotid endarterectomy. 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 Cesar Chandra MD) Mother Cancer Father Emphysema of lung Aunt Cancer Grandfather Vascular disease Grandmother Diabetes Brother Cancer History Items: Pulmonary Disease Maternal Family History: Family History (Last Reviewed 05/12/20 @ 06:[address] Cesar Chandra MD) Mother Cancer Father Emphysema of lung Aunt Cancer Grandfather Vascular disease Grandmother Diabetes Brother Cancer History Items: Cancer Review of Systems Unable to obtain accurate/complete ROS d/t: Patient not answering all questions. VTE Information - Inpt Only VTE Present on Admission: No VTE Mechan Device Prophylaxis: None VTE Pharm Prophylaxis ordered?: Yes Patient Problems: Active and Suspected Problems (Last Reviewed 05/12/20 @ 06:[address] Cesar Chandra MD) COVID-19 (Acute) Encephalopathy (Acute) Contracture of wrist (Acute) UTI (urinary tract infection) (Acute) - Physical Exam Vitals/I&O's: Vital Signs Temp Pulse Resp BP Pulse Ox 99.2 F H 82 24 H 168/47 H 98 05/12/20 03:36 05/12/20 03:52 05/12/20 03:52 05/12/20 03:52 05/12/20 03:52 Oxygen Flow Rate (L/min) 2 Oxygen Delivery Method Nasal Cannula Weight: 85.5 kg Body Mass Index (BMI) 35.6 Finger Stick Blood Glucose 104 General: Alert, Oriented x3, Cooperative HEENT: Atraumatic, PERRLA, EOMI, Normocephalic Neck: Supple, No JVD, Negative Carotid Bruits Lungs: Clear to auscultation, Normal air movement, Tachypneic Cardiovascular: Regular rate, Normal S1, Normal S2, No murmurs Abdomen: Bowel Sounds Present, Soft, Non Tender Extremities: No edema, Capillary Refill Less than 3 Seconds Skin: Ulcer/ Wound - Sacrococcygeal area. Musculoskeletal: No Tenderness to Palpation of Joints or Extremities Neurological: Cranial nerves II-XII grossly intact, - - Decreased range of left upper extremity with left hand contracture. Unable to raise bilateral legs. Slow response and answer questions. Psych/Mental Status: Normal Affect, Appropriate, - Microbiology Past 72 Hours 05/12/20 02:50 Mucosa - Nose SARS-CoV-2 Antigen (Rapid) - Final SARS-CoV-2 (COVID 19) Laboratory Results 05/12/20 02:35: WBC 7.0, RBC 3.23 L, Hgb 8.5 L, Hct 28.2 L, MCV 87.3, MCH 26.3 L , MCHC 30.1 L, RDW Std Deviation 54.2 H, RDW Coeff of [place] 16.8 H, Plt Count 237, MPV 9.8, Immature Gran % (Auto) 0.400, Neut % (Auto) 73.9 H, Lymph % (Auto) 8.9 L, [place] % (Auto) 15.1 H, Eos % (Auto) 1.0, Baso % (Auto) 0.7, Absolute Neuts (auto) 5.2, Absolute Lymphs (auto) 0.63 L, Nucleated RBC % 0 05/12/20 02:35: PT 16.0 H, INR 1.3, APTT 40.4 H 05/12/20 02:35: Sodium 138, Potassium 3.7, Chloride 103, Carbon Dioxide 31.0, Anion Gap 4 L, BUN 20 H, Creatinine 0.79, Estim Creat Clear Calc 34.42, Est GFR (MDRD) Af Amer 90, Est GFR (MDRD) Non-Af 75, BUN/Creatinine Ratio 25.3 H, Glucose 98, Calcium 7.9 L, Magnesium 1.7, Troponin I 0.037 05/12/20 02:42: Blood Type A NEGATIVE, Antibody Screen NEGATIVE Current Medications Iopamidol (Contrast Allergy Safety Check) 0 ml IV X1 YEHUDA Assessment/Plan All Active Problems (Last Reviewed 05/12/20 @ 06:[address] Cesar Chandra MD) COVID-19 (Acute) Encephalopathy (Acute) Contracture of wrist (Acute) UTI (urinary tract infection) (Acute) Dehydration (Resolved) CVA Differentials includes Iraj's paralysis. Only 1 history of seizure but it was questionable. There is a questionable seizures that occurred in time past and it was attributed to low magnesium. With a positive coronavirus test will not order EEG at this time. Serial NINDS NIH Scale CT of the head with age-appropriate cerebral atrophy. Head and neck CTA with chronic occlusion of the origin of the right external carotid artery. Consider a vascular referral upon discharge. -Check Hba1c, Lipid level Physical therapy, occupational therapy and speech therapy to work with patient. N.p.o. until bedside swallow eval. Daily aspirin continued. Home pravastatin continued Permissive hypertension. Control blood pressure with labetalol for systolic blood pressure of more than 220 or diastolic blood pressure of more than 120. MRI brain ordered Echocardiogram ordered. Coronavirus infection Patient with low-grade fever. Patient from senior living. Rapid coronavirus antigen is positive. While in patient's room on room air patient oxygen saturations was between 90 to 94%. Hold off Decadron at this time especially as a CT of abdomen has been ordered to evaluate lower abdominal pain and fecal matter from introitus. LFT did not reveal liver injury. Acute cystitis Patient with abnormal urinalysis Ceftriaxone ordered emergency department and continued. Acute Colitis Abdomen and pelvis CT showed colitis. Will start patient on Zosyn. Dehydration With dry mucous membrane. Patient with elevated BUN above her baseline. Gentle IV hydration Trend BMP.. Acute infectious and metabolic encephalopathy Likely secondary to UTI; colitis; and stroke. Treatment as above. Status post colostomy Consider discussing with general surgery as patient has fecal matter coming from her introitus. Colostomy nurse consult Intertrigo Nystatin powder continued Decubitus ulcer stage II Calmoseptine continued. DVT prophylaxis Subcutaneous Lovenox ordered. Inpatient E&M: 88879 Init Hosp L3
--- NOTE | 2020-05-12 04:57 | MRI_ITS ---
STUDY: MRI BRAIN WITHOUT CONTRAST REASON FOR EXAM: Female, 79 years old. cva, L extremity contracted and weakness, covid+ TECHNIQUE: Standardized multiplanar fat and water weighted pulse sequences were obtained. COMPARISON: MRI examination of the brain from 03/05/2020 FINDINGS: No evidence for shift of midline structures, mass effect or compression of ventricles noted. No acute intracranial hemorrhage. Scattered foci of T2/FLAIR hyperintensity in the periventricular and subcortical white matter seen likely related with chronic small vessel disease. Mild enlargement of the lateral ventricles as well as including the temporal horns of the lateral ventricles are seen. Small punctate acute infarct in the left cerebellum are seen. No evidence for acute intracranial hemorrhage. Age-related involutional changes are identified. Opacification of the sphenoid sinus likely related to sinusitis. Mild mucosal thickening of the ethmoid vessels. Skull base vascular flow voids are patent. Basal cisterns are patent. 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 No associated hemorrhage. Chronic small vessel disease. Mild dilatation of the ventricular system including the temporal horns of the lateral ventricles somewhat out of proportion to patient''s cerebral fine loss which can be seen in the setting of normal pressure hydrocephalus. Please correlate with clinical findings. Electronically Signed: Willy Rush, at 15:03 EST Tel , Service support , MRI/Brain without Contrast
--- NOTE | 2020-05-12 05:09 | CT_ITS ---
STUDY: CT ABDOMEN AND PELVIS WITHOUT CONTRAST REASON FOR EXAM: Female, 79 years old patient with abdominal pain. Patient has had a cholecystectomy and hysterectomy. RADIATION DOSAGE (If Supplied By Facility): CTDIvol = ( 23.59 ) mGy, DLP = ( 1199.40 ) mGycm TECHNIQUE: Transaxial images were obtained from the dome of the diaphragm to the symphysis pubis without oral contrast, and without intravenous contrast. Sagittal and coronal images were reconstructed. Individualized dose optimization techniques were used for this CT. COMPARISON: None. FINDINGS: There is bilateral lower lobe airspace consolidation and atelectasis. There are bilateral pleural effusions, left larger than right. There is a pericardial effusion measuring approximately 1.8 cm in thickness. There are coronary artery vascular calcifications. Normal liver. There is non-visualization of the gallbladder, which may be secondary to either contraction or a prior cholecystectomy. Normal spleen. There is diffuse atrophy of the pancreas. Normal bilateral adrenal glands. There is mild cortical atrophy of the right kidney, consistent with chronic medical renal disease. There is mild cortical atrophy of the left kidney, consistent with chronic medical renal disease. Both kidneys are excreting contrast apparently secondary to previous CTA of the head and neck obtained on the same date. There is a left-sided renal cyst arising from the upper pole of the left kidney measuring 5.1 x 4.3 x 4.6 cm. Small cysts are also present in the right kidney with the largest measuring Normal visualized stomach. There is no evidence for dilated bowel, ascites or pneumoperitoneum. There is abnormal thickening of the [place]aza of the colon suggesting sequela of a colitis. There is non-visualization of the appendix. Patient has a diverting colostomy. There is diffuse atherosclerotic calcification of the abdominal aorta with elongation and tortuosity, but without a demonstrated aneurysm. Normal inferior vena cava. Normal retroperitoneum. Contrast is visible in the urinary bladder. Urinary bladder is incompletely distended. There is absence of the uterus consistent with a prior hysterectomy. There is a left lower quadrant abdominal wall colostomy. Patient has had a total left hip arthroplasty. There is moderate curvature of the thoracic and lumbar spine convexity towards the left. There is multilevel degenerative disc disease of the lumbar spine with vacuum disc phenomenon and disc space narrowing. CT/Abdomen/Pelvis without Cont IMPRESSION: 1. Findings suggest sequela of acute infectious or inflammatory colitis. 2. Bilateral basilar airspace disease, compressive versus dependent atelectasis and pleural effusions. 3. Pericardial effusion. 4. Status post cholecystectomy and hysterectomy. 5. Bilateral renal cysts. 6. Extensive atherosclerotic calcification of the abdominal aorta and common iliac arteries. Electronically Signed: Macie Gipson MD at 6:41 EST , Service support ,
[2020-05-12 05:17] LABS: Mucous, Urine 0 SEEN /hpf (<or=2+)
[2020-05-12 05:19] LABS: Color, Urine Yellow (Yellow); Glucose, Dipstick Normal (Normal); Ketone-Dipstick 15 mg/dl (Negative); Leukocyte Esterase-Dipstick 500 /ul (Negative); Nitrite-Dipstick Positive (Negative); Occult Blood-Urine 250 /ul (Negative); Protein-Dipstick 100 mg/dl (Negative); Urine Clarity Cloudy (Clear); Urine Urobilinogen Normal (Normal)
[2020-05-12 05:27] LABS: Urine Bilirubin Dipstick 1 mg/dL (Negative)
[2020-05-12 05:29] LABS: Red Blood Cells-Urine 0-5 SEEN /hpf (0-5); White Blood Cells >100 SEEN /hpf (0-5)
[2020-05-12 05:30] LABS: Bacteria 4+ /hpf (None Seen); Squamous Epithelial Cells - UA 0-5 SEEN /hpf (5-10); White Cell Cast 0-5 SEEN /lpf (None Seen)
[2020-05-12 05:31] LABS: Amorphous Sediment 2+
[2020-05-12 05:39] LABS: Cholesterol < 50 mg/dL (200); High Density Lipoprotein 22 mg/dL; Triglycerides 60 mg/dL; Very Low Density Lipoprotein 12 mg/dL (5-40)
[2020-05-12 05:42] LABS: Procalcitonin 0.08 ng/mL (0.00-0.09)
[2020-05-12 05:48] LABS: AST(SGOT) 16 U/L (15-37); Alanine Aminotransfer ALT/SGPT 10 U/L (13-56); Albumin, Serum 1.8 g/dL (3.2-5.0); Alkaline Phosphatase 137 U/L (45-117); Bilirubin, Direct 0.23 mg/dL (0.00-0.30); Globulin 3.3 g/dL (2.2-4.2); Protein, Total 5.1 g/dL (6.4-8.2)
[2020-05-12] MEDS: Ceftriaxone 1 GM/50 ML BAG IV (06:44)
[2020-05-12 07:11] LABS: Bedside Glucose 104 mg/dL (70-110)
[2020-05-12 09:14] LABS: Hemoglobin A1c 5.5 % (3.8-5.6)
[2020-05-12] MEDS: dexAMETHasone 4 MG Tablet 6 MG PO (09:32)
[2020-05-12] MEDS: levETIRAcetam 500 MG Tablet PO ×2 (09:32→22:17)
[2020-05-12] MEDS: Iron Polysaccharide Complex 150 MG CAPSULE PO ×2 (09:32→15:43)
[2020-05-12] MEDS: Calcium Carbonate 500 MG Tablet 1000 MG PO ×2 (09:33→15:44)
[2020-05-12] MEDS: Clopidogrel Bisulfate 75 MG Tablet PO (09:33)
[2020-05-12] MEDS: Pantoprazole Sodium 40 MG Tablet PO (09:33)
[2020-05-12] MEDS: Aspirin 81 MG TAB.CHEW PO (09:33)
[2020-05-12] MEDS: Enoxaparin 30 MG/0.3 ML Syringe SC ×2 (09:39→22:17)
[2020-05-12] MEDS: Menthol/Lanolin/Calamine/Znox 113 GM Tube 1 APPLIC TOPICAL (09:40)
[2020-05-12] MEDS: Leflunomide 10 MG TABLET 20 MG PO (09:40)
[2020-05-12] MEDS: Nystatin Ointment 1 APPLIC TOPICAL (09:40)
--- NOTE | 2020-05-12 09:54 | PCM.PN.HOSP ---
Patient Problems: Active and Suspected Problems (Last Reviewed 05/12/20 @ 06:[address] Cesar Chandra MD) COVID-19 (Acute) Encephalopathy (Acute) Contracture of wrist (Acute) UTI (urinary tract infection) (Acute) Reason for Visit: Follow-up for stroke and COVID-19 infection. 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 H&P, vitals, labs and imagings reviewed. Discussed with ID. Seen and examined. Patient has multiple comorbidities and alf resident. She is also bedridden for long time at least for more than 5 years and has left lower extremity contracture and right lower mild contraction. Admitted with left upper extremity weakness and mild left sided facial droop. There was thick pus found in her groin region status vaginal region she had extreme tenderness on putting straight cath. CT abdomen shows infectious or inflammatory colitis, bilateral pleural effusion, left more than right. Status post cholecystectomy and hysterectomy. CT brain no acute intracranial abnormality with moderate bilateral periventricular chronic vessel small disease and cerebral atrophy. Head and neck CTA shows occlusion of right ECA, indwelling right common carotid arterial stent with mild focal stenosis. Normal CT angiogram of head. On exam Neuro: Low pitched voice, patient has difficulty in standing unclear acute or chronic. Left upper extremity weakness, 1/5. Left lower extremity contracture. Right lower extremity mild contracture. Right lower extremity mild weakness 3/5. Lungs: Air entry diminished in bilateral posterior half. No crepitation rhonchi Heart: Sinus rhythm with sinus arrhythmia on secured entrance monitor. No murmur gallop or rub. Vitals/I&O's: Vital Signs Temp Pulse Resp BP Pulse Ox 98.9 F 84 16 144/87 H 98 05/12/20 06:41 05/12/20 07:00 05/12/20 07:00 05/12/20 07:00 05/12/20 08:07 Oxygen Flow Rate (L/min) 2 Oxygen Delivery Method Nasal Cannula Weight: 188 lb 7.924 oz Body Mass Index (BMI) 35.6 Finger Stick Blood Glucose 104 Intake and Output for Last 24 Hours 05/10/20 05/11/20 05/12/20 23:59 23:59 23:59 Intake Total 50 / 50 Balance 50 / 50 Microbiology Past 72 Hours 05/12/20 02:50 Mucosa - Nose SARS-CoV-2 Antigen (Rapid) - Final SARS-CoV-2 (COVID 19) Laboratory Results 05/12/20 02:21: POC Glucose 104 05/12/20 02:35: WBC 7.0, RBC 3.23 L, Hgb 8.5 L, Hct 28.2 L, MCV 87.3, MCH 26.3 L, MCHC 30.1 L, RDW Std Deviation 54.2 H, RDW Coeff of [place]aine 16.8 H, Plt Count 237, MPV 9.8, Immature Gran % (Auto) 0.400, Neut % (Auto) 73.9 H, Lymph % (Auto) 8.9 L, [place] % (Auto) 15.1 H, Eos % (Auto) 1.0, Baso % (Auto) 0.7, Absolute Neuts (auto) 5.2, Absolute Lymphs (auto) 0.63 L, Nucleated RBC % 0 05/12/20 02:35: PT 16.0 H, INR 1.3, APTT 40.4 H 05/12/20 02:35: Sodium 138, Potassium 3.7, Chloride 103, Carbon Dioxide 31.0, Anion Gap 4 L, BUN 20 H, Creatinine 0.79, Estim Creat Clear Calc 34.42, Est GFR (MDRD) Af Amer 90, Est GFR (MDRD) Non-Af 75, BUN/Creatinine Ratio 25.3 H, Glucose 98, Calcium 7.9 L, Magnesium 1.7, Troponin I 0.037 05/12/20 02:35: Procalcitonin 0.08 05/12/20 02:35: Triglycerides 60, Cholesterol < 50, LDL Cholesterol TNP, VLDL Cholesterol 12, HDL Cholesterol 22 L 05/12/20 02:35: Total Bilirubin 0.40, Direct Bilirubin 0.23, AST 16, ALT 10 L, Alkaline Phosphatase 137 H, Total Protein 5.1 L, Albumin 1.8 L, Globulin 3.3 05/12/20 02:35: Hemoglobin A1c 5.5 05/12/20 02:42: Blood Type A NEGATIVE, Antibody Screen NEGATIVE 05/12/20 05:10: Urine Color Yellow, Urine Clarity Cloudy, Urine pH 8.0, Ur Specific [place] 1.010, Urine Protein 100 H, Urine Glucose (UA) Normal, Urine Ketones 15 H, Urine Occult Blood 250 H, Urine Nitrite Positive H, Urine Bilirubin 1 H, Urine Urobilinogen Normal, Ur Leukocyte Esterase 500 H, Urine RBC 0-5 SEEN, Urine WBC >100 SEEN, Ur Squamous Epith Cells 0-5 SEEN, Amorphous Sediment 2+, Urine Bacteria 4+, WBC Casts 0-5 SEEN, Urine Mucus 0 SEEN Current Medications Acetaminophen (Acetaminophen 325 Mg Tablet) 650 mg PO Q6H PRN PRN PRN Reason: Pain Score 1-10/Temp > 100.7 F Aspirin (Aspirin 81 Mg Tab.Chew) 81 mg PO DAILY@0800 [facility] Last Admin: 05/12/20 09:33 Dose: 81 mg Documented by: Calamine/Phenol (Menthol/Lanolin/Calamine/Znox 113 Gm Tube) 1 applic TOPICAL BID [facility]; Protocol Last Admin: 05/12/20 09:40 Dose: 1 applic Documented by: Calcium Carbonate (Calcium Carbonate 500 Mg Tablet) 1,000 mg PO BIDCM [facility] Last Admin: 05/12/20 09:33 Dose: 1,000 mg Documented by: Clopidogrel Bisulfate (Clopidogrel Bisulfate 75 Mg Tablet) 75 mg PO DAILY [facility] Last Admin: 05/12/20 09:33 Dose: 75 mg Documented by: Dexamethasone (Dexamethasone 4 Mg Tablet) 6 mg PO DAILY [facility] Last Admin: 05/12/20 09:32 Dose: 6 mg Documented by: Enoxaparin Sodium (Enoxaparin 30 Mg/0.3 Ml Syringe) 30 mg SC 0800,2200 [facility] Last Admin: 05/12/20 09:39 Dose: 30 mg Documented by: Hydralazine HCl (Hydralazine 20 Mg/Ml Vial) 5 mg IV Q30M PRN PRN Reason: to maintain BP goals Potassium Chloride/Sodium Chloride () 1,000 mls @ 75 mls/hr IV .[id number] [facility] Piperacillin Sod/Tazobactam (Sod 3.375 gm/ Sodium Chloride) 50 mls @ 12.5 mls/hr IV Q8 [facility] Iopamidol (Contrast Allergy Safety Check) 0 ml IV X1 [facility] Last Admin: 05/12/20 09:43 Dose: Not Given Documented by: Labetalol HCl (Labetalol (Prefilled) 20 Mg/4 Ml) 10 - 20 mg IV Q10M PRN PRN PRN Reason: to Maintain BP Goals Leflunomide (Leflunomide 10 Mg Tablet) 20 mg PO DAILY [facility] Last Admin: 05/12/20 09:40 Dose: 20 mg Documented by: Levetiracetam (Levetiracetam 500 Mg Tablet) 500 mg PO BID [facility] Last Admin: 05/12/20 09:32 Dose: 500 mg Documented by: Melatonin (Melatonin 10 Mg Tablet) 5 mg PO QHS PRN PRN PRN Reason: SLEEP Nystatin (Nystatin Ointment) 1 applic TOPICAL BID [facility]; Protocol Last Admin: 05/12/20 09:40 Dose: 1 applic Documented by: Ondansetron HCl (Ondansetron 4 Mg/2 Ml Vial) 4 mg IV Q8H PRN PRN PRN Reason: NAUSEA/VOMITING Pantoprazole Sodium (Pantoprazole Sodium 40 Mg Tablet) 40 mg PO DAILY [facility] Last Admin: 05/12/20 09:33 Dose: 40 mg Documented by: Polysaccharide Iron Complex (Iron Polysaccharide Complex 150 Mg Capsule) 150 mg PO 1200,1700 [facility] Last Admin: 05/12/20 09:32 Dose: 150 mg Documented by: Pravastatin Sodium (Pravastatin 20 Mg Tablet) 20 mg PO QHS [facility] Senna/Docusate Sodium (Senna/Docusate Sodium 1 Tablet) 2 tablet PO BID PRN PRN PRN Reason: Constipation STROKE Vital Signs/Narrative: Vital Signs Temp Pulse Resp BP Pulse Ox 05/12/20 08:07 98 05/12/20 07:00 84 16 144/87 H 94 05/12/20 06:41 98.9 F 86 22 H 221/64 H 98 Medical Necessity - Tobacco Use Smoking Status: Former smoker Assessment/Plan All Active Problems (Last Reviewed 05/12/20 @ 06:[address] Cesar Chandra MD) COVID-19 (Acute) Encephalopathy (Acute) Contracture of wrist (Acute) UTI (urinary tract infection) (Acute) Dehydration (Resolved) Patient had echo in February 2020 reported as left atrium mildly enlarged, EF 70% and no evidence of ASD. 1. Acute/subacute suspected stroke or possible Iraj's paralysis: Patient has been questionable history of seizure. On a stroke protocol. MRI is ordered. Neuro consult after MRI is done. 2. Covid infection. Patient had low-grade fever. In ED, patient pulse ox is 99% on room air currently on 2 L of oxygen 98% respiratory rate 24. Patient on Decadron. Discussed with ID recommended remdesivir. 3. Acute colitis or genitourinary infection possible cystitis, vaginal or vulvar infection: UA positive of nitrite, LE 500, WBC more than 1 red cells. Urine culture pending. Empirically on IV Zosyn 4.Acute infectious and metabolic encephalopathy probably secondary to UTI, colitis or stroke 5. Intertrigo 6. Diverting colostomy: 7. Intertrigo Nystatin powder continued . Decubitus ulcer stage II Calmoseptine continued. DVT prophylaxis Subcutaneous Lovenox ordered. Clinical Impression(s) from Imaging Studies Brain CT 05/12/20 02:23 IMPRESSION: 1. No evidence of an acute intracranial abnormality. 2. Moderate bilateral periventricular and subcortical white matter and basal ganglial chronic small vessel disease with age appropriate cerebral atrophy. 3. Chronic paranasal sinus disease Chest X-Ray 05/12/20 02:23 IMPRESSION: Left lower lobe airspace consolidation suggesting pneumonia. Head/Neck CTA 05/12/20 02:24 IMPRESSION: 1. 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 2. Indwelling right common carotid arterial stent with mild focal stenosis at its distal attachment. 3. 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 4. Normal CT angiogram of the head. \ Abdomen/Pelvis CT 05/12/20 05:09 IMPRESSION: 1. Findings suggest sequela of acute infectious or inflammatory colitis. 2. Bilateral basilar airspace disease, compressive versus dependent atelectasis and pleural effusions. 3. Pericardial effusion. 4. Status post cholecystectomy and hysterectomy. 5. Bilateral renal cysts. 6. Extensive atherosclerotic calcification of the abdominal aorta and common iliac arteries. Electronically Signed: Macie Gipson MD at 6:41 EST , Service support ,
[2020-05-12 11:29] LABS: Alkaline Phosphatase 134 U/L (45-117)
--- NOTE | 2020-05-12 18:05 | CASEMGMT ---
SOCIAL WORK Call to patient's room to discuss discharge planning. Patient in COVID-19 precautions. No answer at this time. Call to patient's daughter to gather information. Per patient's daughter, Milli. Patient from [facility]. Plan for patient to return to [facility] at discharge. Plan: SW to follow up Thursday. Anticipate return to [facility]. Jimmy Fall, FAMILY RESOURCE MANAGEMENT PROFESSOR, SENIOR ACCOUNTANT CPA
[2020-05-12] MEDS: Atorvastatin Calcium 40 MG Tablet PO (22:17)
[2020-05-13] VITALS (13 sets, daily range): BP systolic 152–182; BP diastolic 49–91; PULSE 72–89; RESP 18–24; TEMP 35.9–37; O2SAT 92–95; BMI 35.6
--- NOTE | 2020-05-13 02:12 | NURSING ---
Unable to complete NIHSS at this time. Pt only partially responsive to pain. Pupils pinpoint. Gaze diverted to right. wooden furniture polisher to room and is paging hospitalist at this time.
--- NOTE | 2020-05-13 02:21 | NURSING ---
Blood glucose assessed a this time d/t decreased LOC and resulted at 111.
--- NOTE | 2020-05-13 02:34 | NURSING ---
SUPERVISOR PRINT LINE called, Dr. Chandra to pt room. By time Dr. Chandra arrived, pt had become alert and oriented x3.
--- NOTE | 2020-05-13 02:43 | PCM.PN.BLA ---
Progress Note Rapid response was called because patient was not responding to verbal stimulation nor sternal rub. Patient was examined physically at bedside. At my examination patient was alert and oriented and could give me high-five. Heart sounds S1-S2 present lungs clear to auscultate extremities without edema. Impression: Likely patient was sleeping. STROKE Vital Signs/Narrative: Vital Signs Temp Pulse Resp BP Pulse Ox 05/13/20 02:00 96.6 F L 72 24 H 182/55 H 94
[2020-05-13] MEDS: Acetaminophen 325 MG Tablet 650 MG PO ×3 (06:16→22:39)
[2020-05-13 06:51] LABS: Absolute Lymphocyte Count 0.36 X10^3/uL (0.83-4.51); Absolute Neutrophil Count 5.8 X10^3/uL (2.0-7.7); Basophil# 0.01 X10^3/uL; Basophil% 0.1 % (0-1); Differential Indicated SCAN CRITERIA MET; Hematocrit 29.7 % (37-47); Hemoglobin 8.7 g/dL (12.0-15.0); Lymphocyte # 0.36 X10^3/ul (4.0); Lymphocyte % 5.2 % (19-41); Mean Corp Hgb Conc 29.3 g/dL (32-36); Mean Corpuscular Hgb 25.7 pg (27.0-32.0); Mean Corpuscular Volume 87.9 fL (81-99); Mean Platelet Vol. 9.6 fl (6.2-12.0); Monocyte# 0.72 X10^3/uL; Monocyte% 10.4 % (0-10); NRBC Flagged by Analyzer 0 % (0-5); Neutrophil % 83.6 % (47-70); POSITIVE DIFFERENTIAL YES; Platelet Count 243 K/mm3 (150-450); RBC Distribution Width CV 16.5 % (11.6-14.6); RBC Distribution Width SD 53.5 fl (35.1-43.9); Red Blood Count 3.38 M/mm3 (4.2-5.4); White Blood Count 6.9 K/mm3 (4.4-11.0)
[2020-05-13 06:55] LABS: Bedside Glucose 111 mg/dL (70-110)
[2020-05-13 07:20] LABS: ALB/GLOB Ratio 0.4 RATIO (0.9-2.4); AST(SGOT) 20 U/L (15-37); Alanine Aminotransfer ALT/SGPT 10 U/L (13-56); Albumin, Serum 1.4 g/dL (3.2-5.0); Alkaline Phosphatase 122 U/L (45-117); Anion Gap 8 (5-15); BUN 19 mg/dL (7-18); BUN/Creat Ratio 32.8 RATIO (10-20); Calcium,Total 7.6 mg/dL (8.5-10.1); Chloride 106 mmol/L (98-107); Creatinine, Serum 0.58 mg/dL (0.55-1.02); EST Glomerular Filtration Rate 106 mL/min (>60); Est Glom Filt Rate - Afr Amer 129 mL/min (>60); Estimated Creatinine Clearance 34.42 ml/min; Globulin 3.8 g/dL (2.2-4.2); Glucose 90 mg/dL (74-106); Potassium 3.7 mmol/L (3.5-5.1); Protein, Total 5.2 g/dL (6.4-8.2); Sodium Level 134 mmol/L (136-145)
[2020-05-13 07:28] LABS: Differential Comment SCANNED
[2020-05-13] MEDS: Aspirin 81 MG TAB.CHEW PO (10:57)
[2020-05-13] MEDS: levETIRAcetam 500 MG Tablet PO ×2 (10:58→22:30)
[2020-05-13] MEDS: Iron Polysaccharide Complex 150 MG CAPSULE PO ×2 (10:58→18:12)
[2020-05-13] MEDS: Pantoprazole Sodium 40 MG Tablet PO (10:58)
[2020-05-13] MEDS: Clopidogrel Bisulfate 75 MG Tablet PO (10:58)
[2020-05-13] MEDS: dexAMETHasone 4 MG Tablet 6 MG PO (10:58)
[2020-05-13] MEDS: Calcium Carbonate 500 MG Tablet 1000 MG PO ×2 (10:58→18:12)
[2020-05-13] MEDS: Menthol/Lanolin/Calamine/Znox 113 GM Tube 1 APPLIC TOPICAL ×2 (11:01→22:30)
[2020-05-13] MEDS: Enoxaparin 30 MG/0.3 ML Syringe SC ×2 (11:11→22:31)
[2020-05-13] MEDS: Leflunomide 10 MG TABLET 20 MG PO (11:12)
--- NOTE | 2020-05-13 11:20 | NURSING ---
Pt straight cathed per verbal order Dr Harrell to obtain UA C&S. Pt tolerated without difficulty, sample sent to lab.
--- NOTE | 2020-05-13 13:19 | PN_ITS ---
Patient Problems: Active and Suspected Problems (Last Reviewed 05/12/20 @ 06:[address] Cesar Chandra MD) COVID-19 (Acute) Encephalopathy (Acute) Contracture of wrist (Acute) UTI (urinary tract infection) (Acute) Objective: Patient is more awake and alert. Speech is comprehensible and she can instrument. Patient can swallow well as per speech therapist is not on soft and bite sized modified diet. Blood pressure in permissive hypertensive range. No fever Physical exam General: Alert, Oriented x3, Cooperative HEENT: Atraumatic, PERRLA, EOMI, Normocephalic Oral: No Gingival or Mucosal Lesions/ Ulcerations Neck: Supple, No JVD, Negative Carotid Bruits Lungs: Air entry diminished in bilateral lung bases. No crepitation/rhonchi Cardiovascular: Sinus rhythm on billboard erector, regular rate, Regular Rhythm, Normal S1, Normal S2, No murmurs Abdomen: Bowel Sounds Present, Soft, Non Tender, Non-Distended : No renal angle tenderness. No suprapubic tenderness. Extremities: No edema, Capillary Refill Less than 3 Seconds Skin: No rashes, No breakdown Musculoskeletal: No Tenderness to Palpation of Joints or Extremities Neurological: Mild left facial droop. Speech is comprehensible. Left upper extremity weakness is also improved 4/5. Right upper extremity 5/5. Motor lower extremity strength as before with left lower extremity contracture. Psych/Mental Status: Mildly depressed with flat affect. Vitals/I&O's: Vital Signs Temp Pulse Resp BP Pulse Ox 97.7 F L 72 18 162/66 H 95 05/13/20 10:50 05/13/20 10:50 05/13/20 10:50 05/13/20 10:50 05/13/20 10:50 Oxygen Flow Rate (L/min) 2 Oxygen Delivery Method Room Air Weight: 188 lb 7.924 oz Body Mass Index (BMI) 35.6 Finger Stick Blood Glucose 104 Intake and Output for Last 24 Hours 05/11/20 05/12/20 05/13/20 23:59 23:59 23:59 Intake Total 1095 / 1095 345 / 345 Output Total 200 / 200 Balance 1095 / 1095 145 / 145 Microbiology Past 72 Hours 05/13/20 11:30 Urine Catheter - Catheter Legionella Antigen - Final 05/13/20 11:30 Urine Catheter - Catheter Streptococcus pneumoniae Antigen (M - Final 05/12/20 02:50 Mucosa - Nose SARS-CoV-2 Antigen (Rapid) - Final SARS-CoV-2 (COVID 19) Laboratory Results 05/13/20 02:19: POC Glucose 111 H 05/13/20 05:58: WBC 6.9, RBC 3.38 L, Hgb 8.7 L, Hct 29.7 L, MCV 87.9, MCH 25.7 L , MCHC 29.3 L, RDW Std Deviation 53.5 H, RDW Coeff of Blaine 16.5 H, Plt Count 243, MPV 9.6, Immature Gran % (Auto) 0.700, Neut % (Auto) 83.6 H, Lymph % (Auto) 5.2 L, [place] % (Auto) 10.4 H, Eos % (Auto) 0.0, Baso % (Auto) 0.1, Absolute Neuts (auto) 5.8, Absolute Lymphs (auto) 0.36 L, Nucleated RBC % 0, Differential Comment SCANNED 05/13/20 05:58: Sodium 134 L, Potassium 3.7, Chloride 106, Carbon Dioxide 20.0 L , Anion Gap 8, BUN 19 H, Creatinine 0.58, Estim Creat Clear Calc 34.42, Est GFR (MDRD) Af Amer 129, Est GFR (MDRD) Non-Af 106, BUN/Creatinine Ratio 32.8 H, Glucose 90, Calcium 7.6 L, Total Bilirubin 0.40, AST 20, ALT 10 L, Alkaline Phosphatase 122 H, Total Protein 5.2 L, Albumin 1.4 L, Globulin 3.8, Albumin/ Globulin Ratio 0.4 L Current Medications Acetaminophen (Acetaminophen 325 Mg Tablet) 650 mg PO Q6H PRN PRN PRN Reason: Pain Score 1-10/Temp > 100.7 F Last Admin: 05/13/20 06:16 Dose: 650 mg Documented by: Aspirin (Aspirin 81 Mg Tab.Chew) 81 mg PO DAILY@0800 [facility] Last Admin: 05/13/20 10:57 Dose: 81 mg Documented by: Atorvastatin Calcium (Atorvastatin Calcium 40 Mg Tablet) 40 mg PO QHS [facility] Last Admin: 05/12/20 22:17 Dose: 40 mg Documented by: Calamine/Phenol (Menthol/Lanolin/Calamine/Znox 113 Gm Tube) 1 applic TOPICAL BID [facility]; Protocol Last Admin: 05/13/20 11:01 Dose: 1 applic Documented by: Calcium Carbonate (Calcium Carbonate 500 Mg Tablet) 1,000 mg PO BIDCM [facility] Last Admin: 05/13/20 10:58 Dose: 1,000 mg Documented by: Clopidogrel Bisulfate (Clopidogrel Bisulfate 75 Mg Tablet) 75 mg PO DAILY [facility] Last Admin: 05/13/20 10:58 Dose: 75 mg Documented by: Dexamethasone (Dexamethasone 4 Mg Tablet) 6 mg PO DAILY [facility] Last Admin: 05/13/20 10:58 Dose: 6 mg Documented by: Enoxaparin Sodium (Enoxaparin 30 Mg/0.3 Ml Syringe) 30 mg SC 0800,2200 [facility] Last Admin: 05/13/20 11:11 Dose: 30 mg Documented by: Hydralazine HCl (Hydralazine 20 Mg/Ml Vial) 5 mg IV Q30M PRN PRN Reason: to maintain BP goals Potassium Chloride/Sodium Chloride () 1,000 mls @ 75 mls/hr IV .[id number] [facility] Last Admin: 05/13/20 06:14 Dose: 75 mls/hr Documented by: Piperacillin Sod/Tazobactam (Sod 3.375 gm/ Sodium Chloride) 50 mls @ 12.5 mls/hr IV Q8 [facility] Last Infusion: 05/13/20 10:15 Dose: Infused Documented by: Remdesivir 100 mg/ Sodium (Chloride) 250 mls @ 125 mls/hr IV DAILY [facility] Stop: 05/16/20 11:59 Last Admin: 05/13/20 12:15 Dose: 125 mls/hr Documented by: Iopamidol (Contrast Allergy Safety Check) 0 ml IV X1 [facility] Last Admin: 05/12/20 22:58 Dose: Not Given Documented by: Labetalol HCl (Labetalol (Prefilled) 20 Mg/4 Ml) 10 - 20 mg IV Q10M PRN PRN PRN Reason: to Maintain BP Goals Leflunomide (Leflunomide 10 Mg Tablet) 20 mg PO DAILY [facility] Last Admin: 05/13/20 11:12 Dose: 20 mg Documented by: Levetiracetam (Levetiracetam 500 Mg Tablet) 500 mg PO BID [facility] Last Admin: 05/13/20 10:58 Dose: 500 mg Documented by: Melatonin (Melatonin 10 Mg Tablet) 5 mg PO QHS PRN PRN PRN Reason: SLEEP Nystatin (Nystatin Ointment) 1 applic TOPICAL BID [facility]; Protocol Last Admin: 05/13/20 11:12 Dose: Not Given Documented by: Ondansetron HCl (Ondansetron 4 Mg/2 Ml Vial) 4 mg IV Q8H PRN PRN PRN Reason: NAUSEA/VOMITING Pantoprazole Sodium (Pantoprazole Sodium 40 Mg Tablet) 40 mg PO DAILY [facility] Last Admin: 05/13/20 10:58 Dose: 40 mg Documented by: Polysaccharide Iron Complex (Iron Polysaccharide Complex 150 Mg Capsule) 150 mg PO 1200,1700 [facility] Last Admin: 05/13/20 10:58 Dose: 150 mg Documented by: Senna/Docusate Sodium (Senna/Docusate Sodium 1 Tablet) 2 tablet PO BID PRN PRN PRN Reason: Constipation Sodium Chloride (0.9% Saline Lock 10 Ml Syringe) 10 - 40 ml IV UD PRN PRN Reason: SALINE FLUSH STROKE Vital Signs/Narrative: Vital Signs Temp Pulse Resp BP Pulse Ox 05/13/20 10:50 97.7 F L 72 18 162/66 H 95 Medical Necessity - Tobacco Use Smoking Status: Unknown if ever smoked Assessment/Plan All Active Problems (Last Reviewed 05/12/20 @ 06:[address] Cesar Chandra MD) COVID-19 (Acute) Encephalopathy (Acute) Contracture of wrist (Acute) UTI (urinary tract infection) (Acute) Dehydration (Resolved) This is a 79-year-old female who was admitted from SNF for left arm weakness and chronic left lower extremity contracture noticed on the day of presentation with mild acute altered mental status. Patient also tested positi ve for COVID-19 infection. 1. 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 On a stroke protocol with PT OT and speech and swallow evaluation. MRI brain was done and shows small acute infarct in left cerebral with no associated hemorrhage. CTA head and neck shows occlusion of origin of right ECA and indwelling right CCA stent with mild focal stenosis. SOC neurology consult was done and agreed with the current plan of aspirin, Plavix and high intensity statin. No further neurosurgical intervention needed. Patient had echo in February 2020 reported as left atrium mildly enlarged, EF 70% and no evidence of ASD. 2. Covid infection. Patient on Decadron. Discussed with ID recommended remdesivir. No high-grade fever in the last 36 hours. 3. Acute colitis or genitourinary infection possible cystitis, vaginal or vulvar infection: UA positive of nitrite, LE 500, WBC more than 1 red cells. Urine culture pending. Empirically on IV Zosyn. Discussed with the surgeon Dr. Walton regarding faces in the diaper. She had opinion that is from the residual stool in her rectum after the end colostomy surgery in March 2020. Needs good nursing care. Discussed with the nursing staff and purex urine collecting system ordered. 4. Intertrigo 5. Diverting end colostomy: Proximal colostomy loop is functioning well. No blood in the colostomy bag. 6.. Intertrigo Nystatin powder continued 7. Decubitus ulcer stage II Calmoseptine continued. DVT prophylaxis Subcutaneous Lovenox ordered. Advanced directive and living will discussed with the patient's daughter on 05/12/2020. DNR CC arrest with no intubation. Clinical Impression(s) from Imaging Studies Brain CT 05/12/20 02:23 IMPRESSION: 1. No evidence of an acute intracranial abnormality. 2. Moderate bilateral periventricular and subcortical white matter and basal ganglial chronic small vessel disease with age appropriate cerebral atrophy. 3. Chronic paranasal sinus disease Chest X-Ray 05/12/20 02:23 IMPRESSION: Left lower lobe airspace consolidation suggesting pneumonia. Head/Neck CTA 05/12/20 02:24 IMPRESSION: 1. 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 2. Indwelling right common carotid arterial stent with mild focal stenosis at its distal attachment. 3. 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 4. Normal CT angiogram of the head. \ Abdomen/Pelvis CT 05/12/20 05:09 IMPRESSION: 1. Findings suggest sequela of acute infectious or inflammatory colitis. 2. Bilateral basilar airspace disease, compressive versus dependent atelectasis and pleural effusions. 3. Pericardial effusion. 4. Status post cholecystectomy and hysterectomy. 5. Bilateral renal cysts. 6. Extensive atherosclerotic calcification of the abdominal aorta and common iliac arteries. Inpatient E&M: 73015 Subs Hosp L2
[2020-05-13] MEDS: hydrALAZINE 20 MG/ML Vial 5 MG IV (18:45)
--- NOTE | 2020-05-13 20:01 | NURSING ---
183-ostomy leaking, appliance from skin. Area cleansed and new appliance applied.
[2020-05-13] MEDS: Atorvastatin Calcium 40 MG Tablet PO (22:30)
[2020-05-14] VITALS (9 sets, daily range): BP systolic 161–213; BP diastolic 77–92; PULSE 81–94; RESP 18–20; TEMP 35.6–37.5; O2SAT 94–96; BMI 35.6
[2020-05-14] MEDS: Nystatin Ointment 1 APPLIC TOPICAL ×2 (02:32→09:59)
--- NOTE | 2020-05-14 09:30 | CASEMGMT ---
Patient is from [facility]. SW faxed updates. Kelli BROWNLEE [employer]
[2020-05-14] MEDS: Calcium Carbonate 500 MG Tablet 1000 MG PO (09:55)
[2020-05-14] MEDS: Clopidogrel Bisulfate 75 MG Tablet PO (09:55)
[2020-05-14] MEDS: Aspirin 81 MG TAB.CHEW PO (09:55)
[2020-05-14] MEDS: Pantoprazole Sodium 40 MG Tablet PO (09:57)
[2020-05-14] MEDS: dexAMETHasone 4 MG Tablet 6 MG PO (09:57)
[2020-05-14] MEDS: Leflunomide 10 MG TABLET 20 MG PO (09:58)
[2020-05-14] MEDS: Menthol/Lanolin/Calamine/Znox 113 GM Tube 1 APPLIC TOPICAL (09:58)
[2020-05-14] MEDS: Enoxaparin 30 MG/0.3 ML Syringe SC (10:00)
[2020-05-14] MEDS: levETIRAcetam 500 MG Tablet PO (11:36)
[2020-05-14] MEDS: Iron Polysaccharide Complex 150 MG CAPSULE PO (11:45)
[2020-05-14] MEDS: 0.9% Saline Lock 10 ML Syringe IV (14:46)
--- NOTE | 2020-05-14 15:09 | TREXTCAR_ITS ---
- Diet 05/12/20 04:57 Diet: Cardiac - Heart Healthy Food consistency:: Soft & Bite Sized Liquid Consistency:: Regular/Thin Diet Comments: assistance/supervised meals, straws ok - Routine Orders/Code Status Code Status: [facility] - Therapies Physical Therapy: Eval and Treat Occupational Therapy: Eval and Treat - Allergies/Procedures Done in Hospital Allergies/Adverse Reactions: Allergies gabapentin Allergy (Verified 05/12/20 02:45) Unknown nortriptyline Allergy (Verified 05/12/20 02:45) Unknown rofecoxib [From Vioxx] Allergy (Verified 05/12/20 02:45) Unknown tacrolimus Allergy (Verified 05/12/20 02:45) Unknown ciprofloxacin Adverse Reaction (Severe, Verified 05/12/20 02:45) seizure seizure metronidazole Adverse Reaction (Severe, Verified 05/12/20 02:45) seizure morphine Adverse Reaction (Verified 05/12/20 02:45) Nausea - Type of Care/Length of Stay Estimated LOS: More Than 30 Days Type of Care Needed: Intermediate/Assisted Living Rehab Potential: Fair Prognosis: Fair - Additional Orders/Day of Discharge Additional Orders: Self isolate for at least 21 days since symptoms began or the first postive COVID-19 test. AND at least one day (24 hours) have passed since resolution of fever without the use of fever-reducing agents. AND improvement of symptoms (e.g., cough, shortness of breath). When around people in the same room, wear a face mask. Individuals also in the room should wear a mask. If possible, use a different bathroom and bedroom. Perform adequate hand hygiene. Avoid sharing dishes, glasses, etc. Family members with close contact with you and/or postive for COVID-19 should follow these instructions. Day of Discharge: 05/14/20 - Dietary and Speech Recommendations Speech Linguistic Eval Summary: Pt oriented to self and only. Reoriented to date and location. Pt did say at one point I think I've had a stroke. BUSINESS EMPLOYMENT SPECIALIST provided reason for hospital admission. Pt able to provide 4 animals in one minute. Pt could accurately complete automatic speech tasks (i.e. counting, naming months of the year). Pt able to follow single step directions with occasional repetition or cues. Pt very lethargic this date and slowed in response time. Would consider further congitive-linguistic assessment when pt more alert. - Follow Up Care Primary Care Physician: Nicolas Villegas MD [Primary Care Provider] - Within 2 Weeks Please Follow Up With: Nagi Beckford MD - neurology When: 4-6 weeks
--- NOTE | 2020-05-14 15:12 | DS.PCM_ITS ---
Discharge Date and Diagnosis - Problem List Patient Problems: Active and Suspected Problems (Last Reviewed 05/12/20 @ 06:[address] Cesar Chandra MD) COVID-19 (Acute) Encephalopathy (Acute) Contracture of wrist (Acute) UTI (urinary tract infection) (Acute) Date of Admission: 05/12/20 Date of Discharge: 05/14/20 - Primary Discharge Diagnosis Acute Problems: Active Problems (Last Reviewed 05/12/20 @ 06:[address] Cesar Chandra MD) COVID-19 (Acute) Encephalopathy (Acute) Contracture of wrist (Acute) UTI (urinary tract infection) (Acute) Cerebellar CVA - Secondary Discharge Diagnosis Chronic Problems: Chronic Problems (Last Reviewed 05/12/20 @ 06:[address] Cesar Chandra MD) Chronic anemia (Chronic) Colitis (Chronic) Cystitis (Chronic) Polymyalgia rheumatica (Chronic) Debility (Chronic) Fall (Chronic) Pancolitis (Chronic) Diarrhea (Chronic) Ileus (Chronic) Lymphedema (Chronic) Hypertension (Chronic) Chronic kidney disease, stage 2 (mild) (Chronic) GERD (gastroesophageal reflux disease) (Chronic) Coronary artery disease (Chronic) Seizure (Chronic) Hypomagnesemia (Chronic) Hyponatremia (Chronic) Large bowel obstruction (Chronic) BMI 36.0-36.9,adult (Chronic) Pulmonary hypertension (Chronic) RVSP 55 COPD (chronic obstructive pulmonary disease) (Chronic) AILYN (obstructive sleep apnea) (Chronic) AHI 115 and titrated to nasal CPAP 14 cm of water Atherosclerotic heart disease of [place] coronary artery without angina pectoris (Chronic) Chronic renal insufficiency, stage II (mild) (Chronic) Hyperglycemia, unspecified (Chronic) Carotid stenosis (Chronic) Renal artery stenosis (Chronic) HLD (hyperlipidemia) (Chronic) Benign essential hypertension (Chronic) Hospital Course and Treatment Imaging Results: Clinical Impression(s) from Imaging Studies Brain CT 05/12/20 02:23 IMPRESSION: 1. No evidence of an acute intracranial abnormality. 2. Moderate bilateral periventricular and subcortical white matter and basal ganglial chronic small vessel disease with age appropriate cerebral atrophy. 3. Chronic paranasal sinus disease N.B. : The above information has been verbally conveyed by John Martins MD to Cesar Weller MD, on 05/12/2020 02:42:08 (ET). Electronically Signed: John Martins MD at 2:44 EST Tel , Service support , ADDENDUM: 05/12/20 0251 IMPRESSION: 1. No evidence of an acute intracranial abnormality. 2. Moderate bilateral periventricular and subcortical white matter and basal ganglial chronic small vessel disease with age appropriate cerebral atrophy. 3. Chronic paranasal sinus disease N.B. : The above information has been verbally conveyed by John Martins MD to Cesar Wleler MD, on 05/12/2020 02:42:08 (ET). Electronically Signed: John Martins MD at 2:44 EST Tel , Service support , Chest X-Ray 05/12/20 02:23 IMPRESSION: Left lower lobe airspace consolidation suggesting pneumonia. Electronically Signed: Macie Gipson MD at 4:01 EST , Service support , Head/Neck CTA 05/12/20 02:24 IMPRESSION: 1. 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 2. Indwelling right common carotid arterial stent with mild focal stenosis at its distal attachment. 3. 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 4. Normal CT angiogram of the head. Electronically Signed: John Martins MD at 3:04 EST Tel , Service support , ADDENDUM: 05/12/20 0311 IMPRESSION: 1. 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 2. Indwelling right common carotid arterial stent with mild focal stenosis at its distal attachment. 3. 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 4. Normal CT angiogram of the head. N.B. : The above information has been verbally conveyed by John Martins MD to Cesar Weller MD, on 05/12/2020 03:04:31 (ET). Electronically Signed: John Martins MD at 3:04 EST Tel , Service support , Brain MRI 05/12/20 04:57 Abdomen/Pelvis CT 05/12/20 05:09 IMPRESSION: 1. Findings suggest sequela of acute infectious or inflammatory colitis. 2. Bilateral basilar airspace disease, compressive versus dependent atelectasis and pleural effusions. 3. Pericardial effusion. 4. Status post cholecystectomy and hysterectomy. 5. Bilateral renal cysts. 6. Extensive atherosclerotic calcification of the abdominal aorta and common iliac arteries. Electronically Signed: Macie Gipson MD at 6:41 EST , Service support , Consultations 05/12/20 06:24 Consult: Onc/Wound/bobj developer Routine Comment: Reason for Consult:: colostomy [facility] teleneurology Operations: - - Exploratory laparotomy with sigmoid colectomy and end colostomy Procedures: None Summary of Care Provided: The patient is a 79 year old F presents with left arm weakness and contracture.. Patient was evaluated and had an MRI that showed a small acute infarct in the left cerebellum. Patient was evaluated by [facility] teleneurology who recommend dual antiplatelet therapy plus statin. And the dual antiplatelet therapy patient is already on and patient was changed from pravastatin to atorvastatin 40 mg. Patient still does have a left arm weakness and contracture in her left hand. Patient will continue with physical and Occupational Therapy. [] Patient Problems: Active and Suspected Problems (Last Reviewed 05/12/20 @ 06:[address] Cesar Chandra MD) COVID-19 (Acute) Encephalopathy (Acute) Contracture of wrist (Acute) UTI (urinary tract infection) (Acute) - Physical Exam Vitals/I&O's: Vital Signs Temp Pulse Resp BP Pulse Ox 37.5 C H 94 18 212/92 H 94 05/14/20 13:25 05/14/20 13:25 05/14/20 13:25 05/14/20 13:25 05/14/20 13:25 Oxygen Flow Rate (L/min) 2 Oxygen Delivery Method Room Air Weight: 85.5 kg Body Mass Index (BMI) 35.6 Finger Stick Blood Glucose 104 Intake and Output for Last 24 Hours 05/12/20 05/13/20 05/14/20 23:59 23:59 23:59 Intake Total 1095 / 1095 2225.00 / 2285.00 1695.0 / 1695.0 Output Total 275 / 275 Balance 1095 / 1095 1950.00 / 2009. 1695.0 / 1695.0 General: Alert, Cooperative, No apparent distress HEENT: EOMI, Normocephalic Neck: No Nodes, Thyroid Normal Size and Texture Lungs: Clear to auscultation, Normal air movement, No rhonchi, No wheeze, No rales Cardiovascular: Regular rate, Regular Rhythm, Normal S1, Normal S2 Abdomen: Bowel Sounds Present, Soft, Non Tender, Non-Distended, No Hepato- splenomegaly Extremities: No edema, No Calf Tenderness Psych/Mental Status: Normal Affect, Appropriate Microbiology Past 72 Hours 05/13/20 11:30 Urine Catheter - Catheter Urine Culture - Preliminary Gram positive jacobo Yeast Like Organism 05/13/20 11:30 Urine Catheter - Catheter Legionella Antigen - Final 05/13/20 11:30 Urine Catheter - Catheter Streptococcus pneumoniae Antigen (M - Final 05/12/20 02:50 Mucosa - Nose SARS-CoV-2 Antigen (Rapid) - Final SARS-CoV-2 (COVID 19) Current Medications Acetaminophen (Acetaminophen 325 Mg Tablet) 650 mg PO Q6H PRN PRN PRN Reason: Pain Score 1-10/Temp > 100.7 F Last Admin: 05/13/20 22:39 Dose: 650 mg Documented by: Amlodipine Besylate (Amlodipine 2.5 Mg Tablet) 2.5 mg PO DAILY [facility] Aspirin (Aspirin 81 Mg Tab.Chew) 81 mg PO DAILY@0800 [facility] Last Admin: 05/14/20 09:55 Dose: 81 mg Documented by: Atorvastatin Calcium (Atorvastatin Calcium 40 Mg Tablet) 40 mg PO QHS [facility] Last Admin: 05/13/20 22:30 Dose: 40 mg Documented by: Calamine/Phenol (Menthol/Lanolin/Calamine/Znox 113 Gm Tube) 1 applic TOPICAL BID [facility]; Protocol Last Admin: 05/14/20 09:58 Dose: 1 applic Documented by: Calcium Carbonate ([facility] Carbon[facility] 500 Mg [facility] Last Admin: 05/14/20 09:55 Dose: 1,000 mg Documented by: Carvedilol (Carvedilol 25 Mg Tablet) 25 mg PO BID [facility] Clopidogrel Bisulfate (Clopidogrel Bisulfate 75 Mg Tablet) 75 mg PO DAILY [facility] Last Admin: 05/14/20 09:55 Dose: 75 mg Documented by: Dexamethasone (Dexamethasone 4 Mg Tablet) 6 mg PO DAILY [facility] Last Admin: 05/14/20 09:57 Dose: 6 mg Documented by: Enoxaparin Sodium (Enoxaparin 30 Mg/0.3 Ml Syringe) 30 mg SC 0800,2200 [facility] Last Admin: 05/14/20 10:00 Dose: 30 mg Documented by: Hydralazine HCl (Hydralazine 20 Mg/Ml Vial) 5 mg IV Q30M PRN PRN Reason: to maintain BP goals Last Admin: 05/13/20 18:45 Dose: 5 mg Documented by: Potassium Chloride/Sodium Chloride () 1,000 mls @ 75 mls/hr IV .[id number] [facility] Last Infusion: 05/14/20 15:03 Dose: 75 mls/hr Documented by: Piperacillin Sod/Tazobactam (Sod 3.375 gm/ Sodium Chloride) 50 mls @ 12.5 mls/hr IV Q8 [facility] Last Admin: 05/14/20 14:46 Dose: 12.5 mls/hr Documented by: Remdesivir 100 mg/ Sodium (Chloride) 250 mls @ 125 mls/hr IV DAILY [facility] Stop: 05/16/20 11:59 Last Infusion: 05/14/20 15:04 Dose: Infused Documented by: Labetalol HCl (Labetalol (Prefilled) 20 Mg/4 Ml) 10 - 20 mg IV Q10M PRN PRN PRN Reason: to Maintain BP Goals Leflunomide (Leflunomide 10 Mg Tablet) 20 mg PO DAILY [facility] Last Admin: 05/14/20 09:58 Dose: 20 mg Documented by: Levetiracetam (Levetiracetam 500 Mg Tablet) 500 mg PO BID [facility] Last Admin: 05/14/20 11:36 Dose: 500 mg Documented by: Losartan Potassium (Losartan Potassium 100 Mg Tablet) 100 mg PO DAILY [facility] Melatonin (Melatonin 10 Mg Tablet) 5 mg PO QHS PRN PRN PRN Reason: SLEEP Nystatin (Nystatin Ointment) 1 applic TOPICAL BID [facility]; Protocol Last Admin: 05/14/20 09:59 Dose: 1 applic Documented by: Ondansetron HCl (Ondansetron 4 Mg/2 Ml Vial) 4 mg IV Q8H PRN PRN PRN Reason: NAUSEA/VOMITING Pantoprazole Sodium (Pantoprazole Sodium 40 Mg Tablet) 40 mg PO DAILY [facility] Last Admin: 05/14/20 09:57 Dose: 40 mg Documented by: Polysaccharide Iron Complex (Iron Polysaccharide Complex 150 Mg Capsule) 150 mg PO 1200,1700 [facility] Last Admin: 05/14/20 11:45 Dose: 150 mg Documented by: Senna/Docusate Sodium (Senna/Docusate Sodium 1 Tablet) 2 tablet PO BID PRN PRN PRN Reason: Constipation Sodium Chloride (0.9% Saline Lock 10 Ml Syringe) 10 - 40 ml IV UD PRN PRN Reason: SALINE FLUSH Last Admin: 05/14/20 14:46 Dose: 10 ml Documented by: Home Medications: Medications to take at Discharge Calcium Carbonate [Tums] 1,000 mg PO BIDCM tab 03/15/20 Carvedilol [Coreg (Beta Gertrudis)] 25 mg PO BID tab 03/15/20 Magnesium Oxide 400 mg PO BID #60 tab 03/15/20 Menthol/Lanolin/Calamine/Znox [Calmoseptine Ointment] 1 applic TOPICAL BID tube 03/15/20 levETIRAcetam tablet [Keppra tablet] 500 mg PO BID tab 03/15/20 Iron Polysaccharide Complex [Polysaccharide Iron] 150 mg PO BID 04/24/20 Melatonin 5 mg PO QHS PRN 04/24/20 Nystatin [Mycostatin] 1 applic TOPICAL BID 04/24/20 Acetaminophen [Tylenol] 650 mg PO Q6H PRN PRN 05/01/20 Amlodipine [Norvasc] 2.5 mg PO DAILY 05/01/20 Aspirin [Aspirin, Baby] 81 mg PO DAILY@0800 05/01/20 Cholecalciferol (Vitamin D3) [D3-2000] 2,000 unit PO DAILY 05/01/20 Clopidogrel Bisulfate [Plavix] 75 mg PO DAILY 05/01/20 Leflunomide 20 mg PO DAILY 05/01/20 Losartan Potassium [Cozaar] 100 mg PO DAILY 05/01/20 Pantoprazole Sodium [Protonix] 40 mg PO DAILY 05/01/20 Acetaminophen [Tylenol Tablet] 650 mg PO Q6H PRN PRN tab 05/14/20 Atorvastatin Calcium [Lipitor] 40 mg PO QHS tab 05/14/20 Dexamethasone [Decadron] 6 mg PO DAILY tab 05/14/20 Primary Care Physician: Nicolas Villegas MD [Primary Care Provider] - Within 2 Weeks Please Follow Up With: Nagi Beckford MD - neurology When: 4-6 weeks Disposition: Asstd Living/Non-Skill NH Minutes spent on discharge:: 32 Patient Condition:: Fair Medical Necessity - Tobacco Use Smoking Status: Unknown if ever smoked Meaningful Use Info Meaningful Use Diagnoses (Choose all that apply): Ischemic CVA - CVA Therapy Assessed for PT,OT and/or ST?: Yes - Ischemic Stroke Antithrombotic order at d/c?: Yes Dx of Atrial fib/flutter?: No Statins at discharge?: Yes Primary Dx Acute Ischemic CVA?: Yes IV tPA ordered during stay?: No Reason IV t-PA not ordered: Treatment not Indicated Inpatient E&M: 30894 Disch Hosp
--- NOTE | 2020-05-14 15:38 | NURSING ---
Colostomy appliance had been leaking. nurse thought maybe the pouch was not snapped on well. removed ostomy appliance. peristomal skin is healing well. still some mild redness noted. stoma is slightly above skin level and oval in shape. stoma is nice and pink. cleansed peristomal skin with soap and water. pat dry. applied a new flat [place] 2 piece appliance with a small amount of stoma paste. pt tolerated well.
--- NOTE | 2020-05-14 16:26 | CASEMGMT ---
Patient is being discharged back to [facility]. TUNDE faxed orders to [facility]. TUNDE called [facility] and arranged for patient to get picked up at 1700 via cot billed as wheelchair . TUNDE notified Dilcia at [facility], RN, national secretary, and patient's daughter, Milli. Plan: d/c back to [facility] under skilled level of care. [facility] transported her via cot billed as wheelchair due to a wheelchair van not being available. Kelli BROWNLEE VOICE STUDIES DIRECTOR
--- NOTE | 2020-05-14 16:49 | NURSING ---
Report called to nurse Abiola for pt d/c to [facility]
== END 2020-05-14 17:35 | disposition intermediate care facility (04) | DRG 64 ==
LOC: ED 02:50 → PCU 04:46
PROVIDERS: Internal Medicine; Admitting Provider Hospitalist; Emergency Provider Emergency Medicine; PCP Family Medicine
DX: I63.9 Cerebral infarction, unspecified (principal); U07.1 COVID-19; G93.41 Metabolic encephalopathy; N30.00 Acute cystitis without hematuria; A09 Infectious gastroenteritis and colitis, unspecified; M24.539 Contracture, unspecified wrist; Z79.02 Long term (current) use of antithrombotics/antiplatelets; Z87.891 Personal history of nicotine dependence; I12.9 Hypertensive chronic kidney disease with stage 1 through stage 4 chronic kidney disease, or unspecified chronic kidney disease; N18.2 Chronic kidney disease, stage 2 (mild); G83.24 Monoplegia of upper limb affecting left nondominant side; R29.810 Facial weakness; Z79.899 Other long term (current) drug therapy; E86.0 Dehydration; Z93.3 Colostomy status; L30.4 Erythema intertrigo; L89.152 Pressure ulcer of sacral region, stage 2; Z74.01 Bed confinement status; Z66 Do not resuscitate
CPT/HCPCS: 36415; 70450; 70496; 70498; 70551; 71045; 74176; 80048; 80053; 80061; 80076; 81001; 82962; 83036; 83735; 84075; 84145; 84484; 85025; 85610; 85730; 86850; 86900; 86901; 87086; 87088; 87426; 87449; 92507; 92523; 92526; 92610; 93005; 94762; 97162; 97167; 99285; J7050; Q9967; A4216

== ENCOUNTER 2020-06-16 15:44 | Inpatient (IN) | payer MEDICARE, OTHER, SELFPAY ==
[2020-05-14 14:09] VITALS: BMI 35.6
[2020-06-16] VITALS (9 sets, daily range): BP systolic 63–111; BP diastolic 25–77; PULSE 60–80; RESP 15–18; TEMP 35.1–36.8; O2SAT 92–99; BMI 29.4; BMI 28.0
--- NOTE | 2020-06-16 16:01 | ED.VISSUMM ---
- ER Visit Summary Date of Service: 06/16/20 Chief Complaint: [Anemia] History of Present Illness: The patient is a 79 F presents to the emergency department from residential with low hemoglobin. Patient's been having blood work and it is been noted that her hemoglobin has been dropping. Patient dropped from a hemoglobin of 8.1 on May 10 to a hemoglobin of 6.2 today. Patient denies any abdominal pain. Patient has had transfusions in the past. She does have a colostomy. She denies any abdominal pain. She is nonambulatory. Patient has multiple medical issues including COPD, hypertension, PMR, chronic kidney disease, history of seizures, and history of pulmonary hypertension. [] Physical Examination: [HEENT-PERRLA, EOMI. Cranial nerves II through XII grossly intact. TMs clear. Mucous membranes moist. No adenopathy. Cardiovascular-regular rate and rhythm without murmur or ectopy Lungs-clear to auscultation, chest wall stable without crepitus or subcu emphysema Abdomen-normoactive bowel sounds, soft, nontender, no rebound or rigidity, no peritoneal signs. Patient does have a colostomy in the left lower abdomen with brownish dark stool noted. Extremities-intact ?4, normal range of motion, normal pulses, atraumatic] Test Results: [CBC with differential obtained showed a white of 7.3, hemoglobin 6.5, hematocrit 22.5, platelets 237. Chemistries unremarkable. BUN was 46 and creatinine 2.78. Hemoccult of stool ordered and pending] Emergency Department Course and Treatment: Patient had an IV line established on arrival. Patient was ordered a type and screen and then a type and cross of 1 unit packed red cells. [] Treatment Plan: [Admit] Disposition: [Admit] Impression: [Anemia Acute kidney injury] This note was generated with [employer] dictation software. It may contain incorrect words, spelling, and punctuation that were not noted in review of the chart prior to signing ED Disposition - Plan for ED Patient: Referrals: Nicolas Villegas MD [NON-STAFF] -
[2020-06-16] MEDS: 0.9% Normal Saline 1,000 ML 125 ML IV (16:05)
[2020-06-16 16:12] LABS: Absolute Lymphocyte Count 0.97 X10^3/uL (0.83-4.51); Absolute Neutrophil Count 5.4 X10^3/uL (2.0-7.7); Basophil# 0.04 X10^3/uL; Basophil% 0.5 % (0-1); Eosinophils% 4.1 % (0-5); Hematocrit 22.2 % (37-47); Hemoglobin 6.5 g/dL (12.0-15.0); Lymphocyte # 0.97 X10^3/ul (4.0); Lymphocyte % 13.3 % (19-41); Mean Corp Hgb Conc 29.3 g/dL (32-36); Mean Corpuscular Hgb 26.6 pg (27.0-32.0); Mean Platelet Vol. 10.7 fl (6.2-12.0); Monocyte# 0.57 X10^3/uL; Monocyte% 7.8 % (0-10); NRBC Flagged by Analyzer 0 % (0-5); Neutrophil # 5.38 X10^3/uL (2.7-7.7); Neutrophil % 73.5 % (47-70); POSITIVE MORPHOLOGY YES; Platelet Count 237 K/mm3 (150-450); RBC Distribution Width CV 21.1 % (11.6-14.6); RBC Distribution Width SD 70.2 fl (35.1-43.9); Red Blood Count 2.44 M/mm3 (4.2-5.4); White Blood Count 7.3 K/mm3 (4.4-11.0)
[2020-06-16 16:14] LABS: Differential Indicated SCAN CRITERIA MET
[2020-06-16 16:43] LABS: Anion Gap 8 (5-15); BUN 46 mg/dL (7-18); BUN/Creat Ratio 16.5 RATIO (10-20); Calcium,Total 7.9 mg/dL (8.5-10.1); Chloride 102 mmol/L (98-107); Creatinine, Serum 2.78 mg/dL (0.55-1.02); EST Glomerular Filtration Rate 17 mL/min (>60); Est Glom Filt Rate - Afr Amer 21 mL/min (>60); Estimated Creatinine Clearance 12.38 ml/min; Glucose 97 mg/dL (74-106); Potassium 4.2 mmol/L (3.5-5.1); Sodium Level 139 mmol/L (136-145)
[2020-06-16 16:58] LABS: Anisocytosis 1+; Hypochromasia RARE; Macrocytosis 1+; Platelet Estimate ADEQUATE (ADEQ); Red Cell Morphology N CHROM NORMAL (NORM C&C)
--- NOTE | 2020-06-16 17:10 | NURSING ---
MED SURG ANEMIA, ACUTE KIDNEY INJURY LATA
--- NOTE | 2020-06-16 17:31 | HP.PCM_ITS ---
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 Qualified Code(s): M24.532 - Contracture, left wrist (6) UTI (urinary tract infection) Status: Inactive (7) Chronic anemia Status: Chronic (8) Severe sepsis Status: Inactive (9) Colitis Status: Inactive (10) Cystitis Status: Inactive (11) Polymyalgia rheumatica Status: Chronic (12) Generalized weakness Status: Chronic (13) Debility Status: Chronic (14) Fall Status: Inactive (15) Pancolitis Status: Inactive (16) Diarrhea Status: Inactive (17) Ileus Status: Inactive (18) Lymphedema Status: Inactive (19) Hypertension Status: Chronic Qualifiers: Hypertension type: essential hypertension Qualified Code(s): I10 - Essential (primary) hypertension (20) Chronic kidney disease, stage 2 (mild) Status: Chronic (21) GERD (gastroesophageal reflux disease) Status: Chronic Qualifiers: (22) Coronary artery disease Status: Chronic Qualifiers: (23) Seizure Status: Chronic (24) Hypomagnesemia Status: Chronic (25) Hyponatremia Status: Chronic (26) Large bowel obstruction Status: Chronic (27) Obstruction of colon Status: Inactive (28) BMI 36.0-36.9,adult Status: Chronic (29) Pulmonary hypertension Status: Chronic Comment: RVSP 55 (30) COPD (chronic obstructive pulmonary disease) Status: Chronic Qualifiers: (31) AILYN (obstructive sleep apnea) Status: Chronic Comment: AHI 115 and titrated to nasal CPAP 14 cm of water (32) Atherosclerotic heart disease of [place] coronary artery without angina pectoris Status: Chronic Qualifiers: (33) Acute respiratory failure with hypoxia Status: Inactive (34) Right lower lobe pneumonia Status: Inactive Qualifiers: (35) Sinus tachycardia by electrocardiogram Status: Inactive (36) Chronic renal insufficiency, stage II (mild) Status: Chronic (37) Hyperglycemia, unspecified Status: Chronic (38) Carotid stenosis Status: Chronic Qualifiers: (39) Renal artery stenosis Status: Chronic (40) HLD (hyperlipidemia) Status: Chronic Qualifiers: (41) Benign essential hypertension Status: Chronic (42) CVA (cerebral vascular accident) Status: Chronic Qualifiers: CVA mechanism: unspecified Qualified Code(s): I63.9 - Cerebral infarction, unspecified History of Present Illness Date of Admission: 06/16/20 Chief Complaint: abnormal labs The patient is a 79 year old F sent to the emergency room with abnormal labs. In emergency room, patient was found to have anemia with a hemoglobin of 6.5. Last hemoglobin was 8.7 from May 13 and acute kidney injury, with a creatinine of 2.78, last was 0.58 back on May 13. Patient states that she just feels tired and wiped out. Patient did have some vomiting and but no hematemesis. Patient has a colostomy but has not noted any blood nor any melen a. The hospital service was contacted for admission. Patient was ordered for 1 unit of packed red blood cells. [] Past Medical History Past Medical History (Chronic Problems): Chronic Problems (Last Reviewed 05/12/20 @ 06:[address] Cesar Chandra MD) Contracture of wrist (Chronic) Chronic anemia (Chronic) CVA (cerebral vascular accident) (Chronic) Polymyalgia rheumatica (Chronic) Generalized weakness (Chronic) Debility (Chronic) Hypertension (Chronic) Chronic kidney disease, stage 2 (mild) (Chronic) GERD (gastroesophageal reflux disease) (Chronic) Coronary artery disease (Chronic) Seizure (Chronic) Hypomagnesemia (Chronic) Hyponatremia (Chronic) Large bowel obstruction (Chronic) BMI 36.0-36.9,adult (Chronic) Pulmonary hypertension (Chronic) RVSP 55 COPD (chronic obstructive pulmonary disease) (Chronic) AILYN (obstructive sleep apnea) (Chronic) AHI 115 and titrated to nasal CPAP 14 cm of water Atherosclerotic heart disease of [place] coronary artery without angina pectoris (Chronic) Chronic renal insufficiency, stage II (mild) (Chronic) Hyperglycemia, unspecified (Chronic) Carotid stenosis (Chronic) Renal artery stenosis (Chronic) HLD (hyperlipidemia) (Chronic) Benign essential hypertension (Chronic) Medical History: Medical History (Last Reviewed 06/16/20 @ 17:[address] Fly Mejia DO) Severe sepsis (Inactive) A41.9, R65.20 Colitis (Chronic) K52.9 Cystitis (Chronic) N30.90 Polymyalgia rheumatica (Chronic) M35.3 Generalized weakness (Inactive) R53.1 Debility (Chronic) R53.81 Fall (Chronic) W19.XXXA Pancolitis (Chronic) K51.00 Diarrhea (Chronic) R19.7 Ileus (Chronic) K56.7 Lymphedema (Chronic) I89.0 Hypertension (Chronic) I10 Chronic kidney disease, stage 2 (mild) (Chronic) N18.2 GERD (gastroesophageal reflux disease) (Chronic) K21.9 Coronary artery disease (Chronic) I25.10 Seizure (Chronic) R56.9 Hypomagnesemia (Chronic) E83.42 Hyponatremia (Chronic) E87.1 Large bowel obstruction (Chronic) K56.609 Obstruction of colon (Inactive) K56.609 BMI 36.0-36.9,adult (Chronic) Z68.36 Pulmonary hypertension (Chronic) I27.20 RVSP 55 COPD (chronic obstructive pulmonary disease) (Chronic) J44.9 AILYN (obstructive sleep apnea) (Chronic) G47.33 AHI 115 and titrated to nasal CPAP 14 cm of water Atherosclerotic heart disease of [place] coronary artery without angina pectoris (Chronic) I25.10 Acute respiratory failure with hypoxia (Inactive) J96.01 Right lower lobe pneumonia (Inactive) J18.1 Sinus tachycardia by electrocardiogram (Inactive) R00.0 Chronic renal insufficiency, stage II (mild) (Chronic) N18.2 Hyperglycemia, unspecified (Chronic) R73.9 Carotid stenosis (Chronic) I65.29 Renal artery stenosis (Chronic) I70.1 HLD (hyperlipidemia) (Chronic) E78.5 Benign essential hypertension (Chronic) I10 Acute kidney insufficiency N28.9 NSTEMI (non-ST elevated myocardial infarction) I21.4 Barretts esophagus K22.70 Cerebrovascular disease I67.9 Former smoker, stopped smoking many years ago Z87.891 History of bleeding peptic ulcer Z87.11 Osteoarthritis Dehydration (Resolved) E86.0 Pneumonia J18.9 Severe sepsis A41.9, R65.20 Allergies gabapentin Allergy (Verified 06/16/20 15:54) Unknown nortriptyline Allergy (Verified 06/16/20 15:54) Unknown rofecoxib [From Vioxx] Allergy (Verified 06/16/20 15:54) Unknown tacrolimus Allergy (Verified 06/16/20 15:54) Unknown ciprofloxacin Adverse Reaction (Severe, Verified 06/16/20 15:54) seizure seizure metronidazole Adverse Reaction (Severe, Verified 06/16/20 15:54) seizure morphine Adverse Reaction (Verified 06/16/20 15:54) Nausea Home Medications: Ambulatory Orders Medication Instructions Recorded Calcium Carbonate [Tums] 1,000 mg PO BIDCM tab 03/15/20 Carvedilol [Coreg (Beta Gertrudis)] 25 mg PO BID tab 03/15/20 Magnesium Oxide 400 mg PO BID #60 tab 03/15/20 levETIRAcetam tablet [Keppra 500 mg PO BID tab 03/15/20 tablet] Melatonin 5 mg PO QHS PRN 04/24/20 Acetaminophen [Tylenol] 650 mg PO Q6H PRN PRN 05/01/20 Amlodipine [Norvasc] 2.5 mg PO DAILY 05/01/20 Aspirin [Aspirin, Baby] 81 mg PO DAILY@0800 05/01/20 Cholecalciferol (Vitamin D3) 2,000 unit PO DAILY 05/01/20 [D3-2000] Clopidogrel Bisulfate [Plavix] 75 mg PO DAILY 05/01/20 Leflunomide 20 mg PO DAILY 05/01/20 Losartan Potassium [Cozaar] 100 mg PO DAILY 05/01/20 Pantoprazole Sodium [Protonix] 40 mg PO DAILY 05/01/20 Atorvastatin Calcium [Lipitor] 40 mg PO QHS tab 05/14/20 Ascorbic Acid [C-1000] 1,000 mg PO BID 06/16/20 Baclofen [Lioresal] 10 mg PO TID PRN PRN 06/16/20 Calcium Carbonate [Calcium] 500 mg PO Q4H PRN PRN 06/16/20 DiphenhydrAMINE Liquid [Benadryl 12.5 mg PO BID 06/16/20 Liquid] DiphenhydrAMINE Liquid [Benadryl 12.5 mg PO TID PRN PRN 06/16/20 Liquid] Hydroxyzine HCl 25 mg PO Q6H PRN PRN 06/16/20 Iron Polysaccharide Complex 150 mg PO BID 06/16/20 [Polysaccharide Iron] Triamcinolone Acetonide 1 applic TP BID 06/16/20 Zinc 50 mg PO BID 06/16/20 Surgical History: Surgical History (Last Reviewed 06/16/20 @ 17:[address] Fly Mejia, DO) H/O carotid endarterectomy Z98.890 History of cholecystectomy Z90.49 History of hysterectomy Z90.710 History of left hip replacement Z96.642 History of total right knee replacement Z96.651 Surgical History: appendectomy, cholecystectomy, hysterectomy, total hip arthroplasty - Left., total knee arthroplasty - Right., - - Exploratory laparotomy, carotid endarterectomy. 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 Fly Mejia DO) Mother Cancer Father Emphysema of lung Aunt Cancer Grandfather Vascular disease Grandmother Diabetes Brother Cancer History Items: Pulmonary Disease Maternal Family History: Family History (Last Reviewed 06/16/20 @ 17:[address] Fly Mejia DO) Mother Cancer Father Emphysema of lung Aunt Cancer Grandfather Vascular disease Grandmother Diabetes Brother Cancer History Items: Cancer Review of Systems Constitutional: Reports: Malaise. Denies: Anorexia, Chills, Fever, Night Sweats Eyes: Denies: Blurred vision, Double vision HEENT: Denies: Head Aches, Sinus Congestion, Sinus Drainage Cardiovascular: Denies: Chest Pain, Palpitations Respiratory: Denies: Cough, Shortness of breath at rest, Sputum production Gastrointestinal: Denies: Abdominal Pain, Hematemesis, Hematochezia, Nausea, Melena, Vomiting Genitourinary: Denies: Dysuria Musculoskeletal: Denies: Joint Pain, Joint Tenderness Skin: Denies: Rash, Wounds Neurological: Reports: - - Contracture of left hand and wrist Hematologic/ Lymphatic: Denies: Easy Bruising, Easy Bleeding, Hx of blood clot Comment: All review of systems were negative except as mentioned above in the history of present illness and the other review of systems. VTE Information - Inpt Only VTE Present on Admission: No VTE Mechan Device Prophylaxis: SCD's VTE Pharm Prophylaxis ordered?: No Reason prophylaxis not ordered:: Medical Contraindication - Physical Exam Vitals/I&O's: Vital Signs Temp Pulse Resp BP Pulse Ox 36.1 C L 73 17 100/77 98 06/16/20 15:53 06/16/20 15:53 06/16/20 15:53 06/16/20 15:53 06/16/20 15:53 Oxygen Flow Rate (L/min) 2 Oxygen Delivery Method Nasal Cannula Weight: 70.6 kg Body Mass Index (BMI) 29.4 Finger Stick Blood Glucose 104 General: Alert, Cooperative, No apparent distress, - - Listless. Afebrile. HEENT: Atraumatic, Normocephalic Neck: No Nodes, Thyroid Normal Size and Texture Lungs: Clear to auscultation, Normal air movement, No rhonchi, No wheeze, No rales Cardiovascular: Regular rate, Regular Rhythm, Normal S1, Normal S2, No murmurs Abdomen: Bowel Sounds Present, Soft, Non Tender, Non-Distended, No Hepato- splenomegaly, - - Colostomy in left lower quadrant with brown stool Extremities: No edema, No Calf Tenderness Skin: No rashes, No breakdown Musculoskeletal: No Tenderness to Palpation of Joints or Extremities, No Muscle Wasting Psych/Mental Status: Normal Affect, Appropriate Microbiology Past 72 Hours 06/16/20 16:20 Stool Stool Occult Blood (MICHAEL) - Final Occult Blood Positive Laboratory Results 06/16/20 16:00: WBC 7.3, RBC 2.44 L, Hgb 6.5 L, Hct 22.2 L, MCV 91.0, MCH 26.6 L , MCHC 29.3 L, RDW Std Deviation 70.2 H, RDW Coeff of [place] 21.1 H, Plt Count 237, MPV 10.7, Immature Gran % (Auto) 0.800, Neut % (Auto) 73.5 H, Lymph % (Auto) 1 3.3 L, Bent % (Auto) 7.8, Eos % (Auto) 4.1, Baso % (Auto) 0.5, Absolute Neuts (auto) 5.4, Absolute Lymphs (auto) 0.97, Nucleated RBC % 0, Diff Path Review May foll, Platelet Estimate ADEQUATE, RBC Morphology N CHROM, Hypochromasia RARE, Anisocytosis 1+, Macrocytosis 1+ 06/16/20 16:00: Sodium 139, Potassium 4.2, Chloride 102, Carbon Dioxide 29.0, Anion Gap 8, BUN 46 H, Creatinine 2.78 H, Estim Creat Clear Calc 12.38, Est GFR (MDRD) Af Amer 21 L, Est GFR (MDRD) Non-Af 17 L, BUN/Creatinine Ratio 16.5, Glucose 97, Calcium 7.9 L 06/16/20 16:00: Blood Type A NEGATIVE, Antibody Screen NEGATIVE Current Medications Sodium Chloride () 1,000 mls @ 125 mls/hr IV .Q8H YEHUDA Last Admin: 06/16/20 16:05 Dose: 125 mls/hr Documented by: Assessment/Plan All Active Problems (Last Reviewed 05/12/20 @ 06:[address] Cesar Chandra MD) RICCARDO (acute kidney injury) (Acute) Anemia (Acute) Dehydration (Resolved) 1. Anemia: Patient's counts have dropped to 6.5 from 8.7 back in May 13. No clear source of bleeding yet to be identified. I do not suspect that this is suddenly acute but probably more of a chronic loss possibly exacerbated by the addition of aspirin and clopidogrel after her last admission for stroke. Those after mentioned medications will be held. Patient will be transfused 1 unit and will continue to monitor her hemoglobin. Check iron studies, check B12 and folate. 2. Acute kidney injury: Unclear type at this time. Plan is for IV fluids and urine studies. We will also check a renal ultrasound to see if there is any obstructive process contributing to this. 3. CVA: Patient had a recent small acute infarct to the left cerebellum. Patient has contracture of her left upper extremity. Aspirin and clopidogrel are being held given the anemia. Continue with PT and OT. 4. Hypertension: Continue with amlodipine and carvedilol. Losartan will be held given the acute kidney injury. 5. Seizure disorder: Continue with levetiracetam 6. VTE prophylaxis: SCDs. Chemical prophylaxis is contraindicated in light of the anemia at this time. 7. Advanced care planning: Discussed with the patient. Patient is she said that she wanted to be full code but then I spoke to her at length what is involved in CPR and the steps to try to resuscitate someone including chest compressions shocks and life support. Patient after hearing that said that she does not want CPR nor intubation. Of note patient is also DNR from the senior care. Patient will be DNR Comfort Care arrest no intubation. Inpatient E&M: 55060 Init Hosp L3
--- NOTE | 2020-06-16 17:41 | NURSING ---
[facility] updated on pt being admitted
[2020-06-16 18:31] LABS: Ferritin 1156 ng/mL (8-252); Iron Binding Capacity,Total 169 ug/dL (250-450)
[2020-06-16 19:59] LABS: Mucous, Urine 0 SEEN /hpf (<or=2+); Squamous Epithelial Cells - UA 0 SEEN /hpf (5-10)
[2020-06-16 20:02] LABS: Color, Urine Brown (Yellow); Glucose, Dipstick Normal (Normal); Ketone-Dipstick 5 mg/dl (Negative); Leukocyte Esterase-Dipstick 500 /ul (Negative); Nitrite-Dipstick Negative (Negative); Occult Blood-Urine 250 /ul (Negative); Protein-Dipstick 30 mg/dl (Negative); Specific Gravity, Urine 1.015 (1.002-1.030); Urine Bilirubin Dipstick Negative (Negative); Urine Clarity Cloudy (Clear); Urine Urobilinogen 1 mg/dl (Normal); Urine pH 6.5 (5.0 - 8.0)
[2020-06-16 20:09] LABS: Bacteria 4+ /hpf (None Seen)
[2020-06-16 20:11] LABS: Calcium Oxalate Crystals Ur RARE /hpf (<or=2+)
[2020-06-16 20:16] LABS: Urine Sodium 51 mmol/L (Not Establ.)
[2020-06-16 20:21] LABS: Amorphous Sediment 2+; Red Blood Cells-Urine 5-10 SEEN /hpf (0-5); White Blood Cells 10-25 SEEN /hpf (0-5)
[2020-06-16] MEDS: Menthol/Lanolin/Calamine/Znox 113 GM Tube 1 APPLIC TOPICAL (22:36)
[2020-06-16] MEDS: Iron Polysaccharide Complex 150 MG CAPSULE PO (22:39)
[2020-06-16] MEDS: Ascorbic Acid 500 MG Tablet 1000 MG PO (22:39)
[2020-06-16] MEDS: Triamcinolone 0.5% Cream 1 APPLIC TP (22:39)
[2020-06-16] MEDS: levETIRAcetam 500 MG Tablet PO (22:39)
[2020-06-16] MEDS: Magnesium Chloride 64 MG Delay Rel.Tablet 128 MG PO (22:39)
[2020-06-16] MEDS: 0.9% Saline Lock 10 ML Syringe IV (23:26)
[2020-06-16] MEDS: 0.9% Normal Saline 1,000 ML 150 ML IV (23:26)
[2020-06-17] VITALS (8 sets, daily range): BP systolic 101–136; BP diastolic 39–64; PULSE 64–83; RESP 16–18; TEMP 36.4–37.5; O2SAT 94–100; BMI 28.0
[2020-06-17] MEDS: Acetaminophen 325 MG Tablet 650 MG PO ×2 (00:40→20:43)
[2020-06-17 04:58] LABS: Absolute Lymphocyte Count 1.04 X10^3/uL (0.83-4.51); Absolute Neutrophil Count 4.5 X10^3/uL (2.0-7.7); Basophil# 0.03 X10^3/uL; Basophil% 0.4 % (0-1); Eosinophil# 0.28 X10^3/uL; Eosinophils% 4.2 % (0-5); Hematocrit 21.6 % (37-47); Hemoglobin 6.7 g/dL (12.0-15.0); Lymphocyte # 1.04 X10^3/ul (4.0); Lymphocyte % 15.6 % (19-41); Mean Corpuscular Hgb 27.9 pg (27.0-32.0); Mean Platelet Vol. 10.8 fl (6.2-12.0); Monocyte# 0.81 X10^3/uL; Monocyte% 12.1 % (0-10); NRBC Flagged by Analyzer 0 % (0-5); Neutrophil # 4.46 X10^3/uL (2.7-7.7); Neutrophil % 66.8 % (47-70); Platelet Count 172 K/mm3 (150-450); RBC Distribution Width CV 19.1 % (11.6-14.6); RBC Distribution Width SD 62.2 fl (35.1-43.9); White Blood Count 6.7 K/mm3 (4.4-11.0)
[2020-06-17 05:15] LABS: Anion Gap 8 (5-15); BUN 44 mg/dL (7-18); BUN/Creat Ratio 18.8 RATIO (10-20); Calcium,Total 6.5 mg/dL (8.5-10.1); Chloride 105 mmol/L (98-107); Creatinine, Serum 2.34 mg/dL (0.55-1.02); EST Glomerular Filtration Rate 21 mL/min (>60); Est Glom Filt Rate - Afr Amer 26 mL/min (>60); Estimated Creatinine Clearance 14.71 ml/min; Glucose 68 mg/dL (74-106); Potassium 3.7 mmol/L (3.5-5.1); Sodium Level 140 mmol/L (136-145)
[2020-06-17] MEDS: 0.9% Normal Saline 1,000 ML 150 ML IV (05:25)
[2020-06-17] MEDS: Calcium Gluconate 1 GM/10 ML Vial IV (06:28)
[2020-06-17 06:36] LABS: AST(SGOT) 21 U/L (15-37); Alanine Aminotransfer ALT/SGPT 11 U/L (13-56); Albumin, Serum 1.4 g/dL (3.2-5.0); Alkaline Phosphatase 169 U/L (45-117); Bilirubin, Direct 0.17 mg/dL (0.00-0.30); Globulin 2.7 g/dL (2.2-4.2); Protein, Total 4.1 g/dL (6.4-8.2)
[2020-06-17] MEDS: Calcium Carbonate 500 MG Tablet 1000 MG PO ×2 (08:32→18:02)
--- NOTE | 2020-06-17 10:37 | PCM.NTREPORT ---
Nutrition Therapy Report - History Nutrition Services has been consulted to:: Manage nutrient details of diet order Current diet / nutrition support order:: Cardiac - Anthropometric Measurements Height:: 5 ft 1 in Weight:: 67.3 kg Body Mass Index (BMI):: 28.0 - Relevant Labs Relevant Labs:: RBC 2.40 M/mm3 (4.2-5.4) L 06/17/20 04:40 Hgb 6.7 g/dL (12.0-15.0) L 06/17/20 04:40 Hct 21.6 % (37-47) L 06/17/20 04:40 MCH 26.6 pg (27.0-32.0) L 06/16/20 16:00 MCHC 31.0 g/dL (32-36) L D 06/17/20 04:40 RDW Std Deviation 62.2 fl (35.1-43.9) H 06/17/20 04:40 RDW Coeff of [place] 19.1 % (11.6-14.6) H 06/17/20 04:40 Neut % (Auto) 73.5 % (47-70) H 06/16/20 16:00 Lymph % (Auto) 15.6 % (19-41) L 06/17/20 04:40 [place] % (Auto) 12.1 % (0-10) H 06/17/20 04:40 BUN 44 mg/dL (7-18) H 06/17/20 04:40 Creatinine 2.34 mg/dL (0.55-1.02) H 06/17/20 04:40 Est GFR (MDRD) Af Amer 26 mL/min (>60) L 06/17/20 04:40 Est GFR (MDRD) Non-Af 21 mL/min (>60) L 06/17/20 04:40 Glucose 68 mg/dL (74-106) L 06/17/20 04:40 Calcium 6.5 mg/dL (8.5-10.1) L* 06/17/20 04:40 TIBC 169 ug/dL (250-450) L 06/16/20 16:00 Ferritin 1156 ng/mL (8-252) H 06/16/20 16:00 ALT 11 U/L (13-56) L 06/17/20 04:40 Alkaline Phosphatase 169 U/L (45-117) H 06/17/20 04:40 Total Protein 4.1 g/dL (6.4-8.2) L 06/17/20 04:40 Albumin 1.4 g/dL (3.2-5.0) L 06/17/20 04:40 Folate 3.00 ng/mL (3.1-55.4) L 06/16/20 16:00 - Assessment Food / Nutrition-Related History:: Pt states she has been living in ECF - po intake has been terrible x 6 mo - has been getting ONS there - agreeable to ONS while in [facility]. Noted in EMR 05/12/20 wt 85.5 kg - wt loss of 20.3% x 1 mo. Shearing of buttock - tx per nsg. H/H low - plans for 1 unit PRBC today. Pt from ECF where meals provided. [ End ] - Nutrition Diagnosis Problem / Etiology / Signs & Symptoms (PES):: Pt with suboptimal po intake r/t terrible appetite x 6 mo aeb 20.3% wt loss x 1 mo and po intake <50% x >1 mo. [ End ] Evidence of Malnutrition Exists:: Yes Severe PCM:: Acute Illness - Nutrition Intervention Nutrition Prescription:: [id number] nichole / 80-90 gm pro /day - Food / Nutrient Delivery Interventions Summary of nutrition intervention:: Will liberalize diet to Regular MANSI and ONS w/ meals to try to help maximize pt po intake. Will order ONS at [facility] for increased nutrition if consumed d/t s/s of malnutrition - MNT Monitoring Further MNT monitoring and evaluation required?: Yes MNT Follow-up in:: 3-5 days - please call [phone] if questions/concerns
[2020-06-17] MEDS: Triamcinolone 0.5% Cream 1 APPLIC TP ×2 (10:42→20:50)
[2020-06-17] MEDS: Ascorbic Acid 500 MG Tablet 1000 MG PO ×2 (10:43→20:51)
[2020-06-17] MEDS: Carvedilol 25 MG Tablet PO ×2 (10:43→20:49)
[2020-06-17] MEDS: Pantoprazole Sodium 40 MG Tablet PO (10:43)
[2020-06-17] MEDS: Iron Polysaccharide Complex 150 MG CAPSULE PO ×2 (10:43→20:49)
[2020-06-17] MEDS: levETIRAcetam 500 MG Tablet PO ×2 (10:44→20:50)
[2020-06-17] MEDS: Losartan Potassium 100 MG Tablet PO (10:44)
[2020-06-17] MEDS: Magnesium Chloride 64 MG Delay Rel.Tablet 128 MG PO ×2 (10:44→20:50)
[2020-06-17] MEDS: Menthol/Lanolin/Calamine/Znox 113 GM Tube 1 APPLIC TOPICAL ×2 (10:45→20:49)
[2020-06-17] MEDS: amLODIPine 2.5 MG Tablet PO (10:45)
[2020-06-17] MEDS: Leflunomide 10 MG TABLET 20 MG PO (10:45)
--- NOTE | 2020-06-17 11:23 | PN_ITS ---
Patient Problems: Active and Suspected Problems (Last Reviewed 06/16/20 @ 17:[address] Fly Mejia, DO) RICCARDO (acute kidney injury) (Acute) Anemia (Acute) Subjective: Patient seen and examined. She was admitted from SNF with a complaint of abnormal albs. She was found to have anemia with a hemoglobin of 6.5, with her last hb being 8.7. She also has RICCARDO, with Cr of 2.78. She is being transfused blood. Patient seen and examined. She was alert but confused. When asked if she knew why she was in the hospital she just mermaid and could not give any specific answer. Unable to do review of systems. Per her nurse, no active events overnight. Vitals are stable per calcium has fallen to 6.5 today. Creatinine is down to 2.34. Vitals/I&O's: Vital Signs Temp Pulse Resp BP Pulse Ox 98.9 F 70 16 126/41 H 94 06/17/20 08:01 06/17/20 08:01 06/17/20 08:01 06/17/20 08:01 06/17/20 08:01 Oxygen Flow Rate (L/min) 2 Oxygen Delivery Method Nasal Cannula Weight: 148 lb 5.938 oz Body Mass Index (BMI) 28.0 Finger Stick Blood Glucose 104 Intake and Output for Last 24 Hours 06/15/20 06/16/20 06/17/20 23:59 23:59 23:59 Intake Total 964.58 / 964.58 897.5 / 897.5 Balance 964.58 / 964.58 897.5 / 897.5 General: Alert, Confused, Lethargic HEENT: Atraumatic, PERRLA, EOMI, Normocephalic Oral: Dry Mucosa Neck: Supple, No JVD, Negative Carotid Bruits Lungs: Clear to auscultation, Normal air movement, No rhonchi, No wheeze, No rales, - - on 2L of oxygen. 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 Microbiology Past 72 Hours 06/16/20 16:20 Stool Stool Occult Blood (MICHAEL) - Final Occult Blood Positive Laboratory Results 06/16/20 16:00: WBC 7.3, RBC 2.44 L, Hgb 6.5 L, Hct 22.2 L, MCV 91.0, MCH 26.6 L , MCHC 29.3 L, RDW Std Deviation 70.2 H, RDW Coeff of Blaine 21.1 H, Plt Count 237, MPV 10.7, Immature Gran % (Auto) 0.800, Neut % (Auto) 73.5 H, Lymph % (Auto) 13.3 L, K[place] % (Auto) 7.8, Eos % (Auto) 4.1, Baso % (Auto) 0.5, Absolute Neuts (auto) 5.4, Absolute Lymphs (auto) 0.97, Nucleated RBC % 0, Diff Path Review May foll, Platelet Estimate ADEQUATE, RBC Morphology N CHROM, Hypochromasia RARE, Anisocytosis 1+, Macrocytosis 1+ 06/16/20 16:00: Sodium 139, Potassium 4.2, Chloride 102, Carbon Dioxide 29.0, Anion Gap 8, BUN 46 H, Creatinine 2.78 H, Estim Creat Clear Calc 12.38, Est GFR (MDRD) Af Amer 21 L, Est GFR (MDRD) Non-Af 17 L, BUN/Creatinine Ratio 16.5, Glucose 97, Calcium 7.9 L 06/16/20 16:00: Blood Type A NEGATIVE, Antibody Screen NEGATIVE 06/16/20 16:00: Crossmatch See Detail 06/16/20 16:00: Vitamin B12 Pending 06/16/20 16:00: TIBC 169 L, Ferritin 1156 H, Folate 3.00 L 06/16/20 19:45: Urine Color Brown, Urine Clarity Cloudy, Urine pH 6.5, Ur Specific [place] 1.015, Urine Protein 30 H, Urine Glucose (UA) Normal, Urine Ketones 5 H, Urine Occult Blood 250 H, Urine Nitrite Negative, Urine Bilirubin Negative, Urine Urobilinogen 1 H, Ur Leukocyte Esterase 500 H, Urine RBC 5-10 SEEN, Urine WBC 10-25 SEEN, Ur Squamous Epith Cells 0 SEEN, Calcium Oxalate Crystal RARE, Amorphous Sediment 2+, Urine Bacteria 4+, Urine Mucus 0 SEEN 06/16/20 19:45: Ur Random Sodium 51, Urine Creatinine 88.10 06/17/20 04:40: WBC 6.7, RBC 2.40 L, Hgb 6.7 L, Hct 21.6 L, MCV 90.0, MCH 27.9, MCHC 31.0 L D, RDW Std Deviation 62.2 H, RDW Coeff of [place]aine 19.1 H, Plt Count 172, MPV 10.8, Immature Gran % (Auto) 0.900, Neut % (Auto) 66.8, Lymph % (Auto) 15.6 L, [place] % (Auto) 12.1 H, Eos % (Auto) 4.2, Baso % (Auto) 0.4, Absolute Neuts (auto) 4.5, Absolute Lymphs (auto) 1.04, Nucleated RBC % 0 06/17/20 04:40: Sodium 140, Potassium 3.7, Chloride 105, Carbon Dioxide 27.0, Anion Gap 8, BUN 44 H, Creatinine 2.34 H, Estim Creat Clear Calc 14.71, Est GFR (MDRD) Af Amer 26 L, Est GFR (MDRD) Non-Af 21 L, BUN/Creatinine Ratio 18.8, Glucose 68 L, Calcium 6.5 L* 06/17/20 04:40: Total Bilirubin 0.40, Direct Bilirubin 0.17, AST 21, ALT 11 L, Alkaline Phosphatase 169 H, Total Protein 4.1 L, Albumin 1.4 L, Globulin 2.7 Current Medications Acetaminophen (Acetaminophen 325 Mg Tablet) 650 mg PO Q6H PRN PRN PRN Reason: Pain Score 1-10/Temp > 100.7 F Last Admin: 06/17/20 00:40 Dose: 650 mg Documented by: Amlodipine Besylate (Amlodipine 2.5 Mg Tablet) 2.5 mg PO DAILY [facility] Last Admin: 06/17/20 10:45 Dose: 2.5 mg Documented by: Ascorbic Acid (Ascorbic Acid 500 Mg Tablet) 1,000 mg PO BID [facility] Last Admin: 06/17/20 10:43 Dose: 1,000 mg Documented by: Atorvastatin Calcium (Atorvastatin Calcium 40 Mg Tablet) 40 mg PO QHS [facility] Last Admin: 06/16/20 22:50 Dose: Not Given Documented by: Baclofen (Baclofen 10 Mg Tablet) 10 mg PO TID PRN PRN PRN Reason: BACK PAIN Calamine/Phenol (Menthol/Lanolin/Calamine/Znox 113 Gm Tube) 1 applic TOPICAL BID [facility]; Protocol Last Admin: 06/17/20 10:45 Dose: 1 applicatio Documented by: Calcium Carbonate (Calcium Carbonate 500 Mg Tablet) 1,000 mg PO BIDCM [facility] Last Admin: 06/17/20 08:32 Dose: 1,000 mg Documented by: Carvedilol (Carvedilol 25 Mg Tablet) 25 mg PO BID [facility] Last Admin: 06/17/20 10:43 Dose: 25 mg Documented by: Cholecalciferol (Cholecalciferol (Vit D3) 1,000 Unit (25mcg)) 2,000 unit PO DAILY [facility] Last Admin: 06/17/20 10:45 Dose: 2,000 unit Documented by: Hydroxyzine Pamoate (Hydroxyzine Elisabeth 25 Mg Capsule) 25 mg PO Q6H PRN PRN PRN Reason: ITCHING Leflunomide (Leflunomide 10 Mg Tablet) 20 mg PO DAILY [facility] Last Admin: 06/17/20 10:45 Dose: 20 mg Documented by: Levetiracetam (Levetiracetam 500 Mg Tablet) 500 mg PO BID [facility] Last Admin: 06/17/20 10:44 Dose: 500 mg Documented by: Losartan Potassium (Losartan Potassium 100 Mg Tablet) 100 mg PO DAILY [facility] Last Admin: 06/17/20 10:44 Dose: 100 mg Documented by: Magnesium Chloride (Magnesium Chloride 64 Mg Delay Rel.Tablet) 128 mg PO BID [facility] Last Admin: 06/17/20 10:44 Dose: 128 mg Documented by: Melatonin (Melatonin 10 Mg Tablet) 5 mg PO QHS PRN PRN Reason: SLEEP Nutritional Formula (Lactose Free) (Ensure Enlive 120 Ml Liquid) 120 ml PO 4X/DAY [facility] Pantoprazole Sodium (Pantoprazole Sodium 40 Mg Tablet) 40 mg PO DAILY [facility] Last Admin: 06/17/20 10:43 Dose: 40 mg Documented by: Polysaccharide Iron Complex (Iron Polysaccharide Complex 150 Mg Capsule) 150 mg PO BID [facility] Last Admin: 06/17/20 10:43 Dose: 150 mg Documented by: Sodium Chloride (0.9% Saline Lock 10 Ml Syringe) 10 - 40 ml IV UD PRN PRN Reason: SALINE FLUSH Last Admin: 06/16/20 23:26 Dose: 10 ml Documented by: Triamcinolone Acetonide (Triamcinolone 0.5% Cream) 1 applic TP BID [facility]; Protocol Last Admin: 06/17/20 10:42 Dose: 1 applicatio Documented by: STROKE Vital Signs/Narrative: Vital Signs Temp Pulse Resp BP Pulse Ox 06/17/20 08:01 98.9 F 70 16 126/41 H 94 Medical Necessity - Tobacco Use Smoking Status: Never smoker Assessment/Plan All Active Problems (Last Reviewed 06/16/20 @ 17:[address] Fly Mejia, DO) RICCARDO (acute kidney injury) (Acute) Anemia (Acute) Dehydration (Resolved) #Acute on chronic Anemia * etiology of anemia is not clear, Hb was 6.5 on admission * Patient does have chronic anemia with a baseline hemoglobin being around 7-8 per EMR. * aspirin and plavix on hold * Iron panel shows elevated ferritin of 1156. will check iron and TIBC * being transfused with 2 units of PRBCs * # RICCARDO * On admission patient's creatinine was 2.44. * Baseline creatinine is around 0.58. * Been hydrated with IV fluids. Will trend creatinine. * Renal ultrasound pending. I do suspect its a pre-renal RICCARDO as patieint looks quite dehydrated * FeNa is however 1.1%, indicating an intrinsic renal cause. Await renal USG. * #Hypocalcemia: calcium is 6.5 this morning. Will replace and trend. Check magnesium levels also. #. 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 Aspirin and Plavix on hold. PT OT on board. #Asymptomatic bacteriuria * Patient has 4+ bacteria in her urine. However she has no symptoms in about a month ago, she also had 4+ bacteria in her urine. Will hold off on antibiotics for now. * #Hypertension: on amlodipine and carvedilol. Lisinopril on hold due to RICCARDO. #Seizure disorder: on Keppra DVT prophylaxis; SCDs. no anticoagulation o/a of anemia Disposition: patient's daughter came to visit hospital and said she was interested in hospice care for patient. Daughter had left before hospitalist could talk to her. Hospitalist spoke to patient herself about hospice care, and patient said she agreed with hospice consult. Hospice consult placed. Inpatient E&M: 08199 Subs Hosp L3
[2020-06-17 12:00] LABS: Iron 114 ug/dL (50-170); Iron Binding Capacity,Total 133 ug/dL (250-450); Magnesium 2.3 mg/dL (1.6-2.6); PERCENT IRON SATURATION 85.7 % (15.0-55.0)
[2020-06-17] MEDS: Nystatin Powder 15gm Bottle 1 APPLIC TOPICAL ×2 (14:52→20:50)
[2020-06-17] MEDS: Atorvastatin Calcium 40 MG Tablet PO (20:51)
[2020-06-17] MEDS: MELATONIN 10 MG TABLET 5 MG PO (23:55)
[2020-06-17] MEDS: hydrOXYzine PAM 25 MG Capsule PO (23:55)
[2020-06-18 03:57] VITALS: BP 105/51; PULSE 65; RESP 16; TEMP 36.2; O2SAT 95
[2020-06-18 04:57] LABS: Absolute Lymphocyte Count 0.91 X10^3/uL (0.83-4.51); Basophil# 0.04 X10^3/uL; Basophil% 0.6 % (0-1); Eosinophil# 0.58 X10^3/uL; Hematocrit 26.8 % (37-47); Hemoglobin 8.3 g/dL (12.0-15.0); Lymphocyte # 0.91 X10^3/ul (4.0); Mean Corpuscular Volume 90.5 fL (81-99); Monocyte# 0.91 X10^3/uL; NRBC Flagged by Analyzer 0 % (0-5); Neutrophil # 3.99 X10^3/uL (2.7-7.7); Neutrophil % 61.6 % (47-70); Platelet Count 156 K/mm3 (150-450); RBC Distribution Width CV 19.1 % (11.6-14.6); RBC Distribution Width SD 61.9 fl (35.1-43.9); Red Blood Count 2.96 M/mm3 (4.2-5.4); White Blood Count 6.5 K/mm3 (4.4-11.0)
[2020-06-18 05:09] LABS: Anion Gap 6 (5-15); BUN 39 mg/dL (7-18); BUN/Creat Ratio 21.7 RATIO (10-20); Calcium,Total 7.3 mg/dL (8.5-10.1); Chloride 108 mmol/L (98-107); EST Glomerular Filtration Rate 29 mL/min (>60); Est Glom Filt Rate - Afr Amer 35 mL/min (>60); Estimated Creatinine Clearance 19.12 ml/min; Glucose 71 mg/dL (74-106); Sodium Level 139 mmol/L (136-145)
[2020-06-18] MEDS: Nystatin Powder 15gm Bottle 1 APPLIC TOPICAL ×3 (06:24→21:28)
[2020-06-18] MEDS: hydrOXYzine PAM 25 MG Capsule PO (06:26)
--- NOTE | 2020-06-18 07:00 | US_ITS ---
STUDY: RENAL ULTRASOUND - COMPLETE REASON FOR EXAM: Female, 79 years old. RICCARDO TECHNIQUE: Ultrasound evaluation of the kidneys was performed with real-time and static fitzgerald-scale imaging. COMPARISON: None. FINDINGS: RIGHT KIDNEY: Normal location of the right kidney, which is normal in size. The right kidney measures 9.4 cm x 5.1 cm x 4 cm. There is a normal cortex of the right kidney. The renal cortex measures 1.3 cm. 2 right renal cysts are seen. The larger measures 1.4 cm x 1.2 cm x 1.4 cm. There are no right renal calculi. There is no right hydronephrosis. DISTAL RIGHT URETER: There is non-visualization of the distal right ureter. There is no demonstrated right ureterovesical junction calculus. There is a visualized right ureteral jet. LEFT KIDNEY: Normal location of the left kidney, which is normal in size. The left kidney measures 9.9 cm x 5.6 cm x 5.6 cm. There is a normal cortex of the left kidney. The renal cortex measures 1.7 cm. A left renal cyst is seen. It measures 4.3 cm x 4.4 cm x 3.8 cm. There are no left renal calculi. There is no left hydronephrosis. DISTAL LEFT URETER: There is non-visualization of the distal left ureter. There is no demonstrated left ureterovesical junction calculus. There is a visualized left ureteral jet. BLADDER: The distended urinary bladder has a volume of 70 ml. There is a normal wall thickness of the distended urinary bladder. No evidence of a possible 3.7 cm x 4.3 cm x 2.5 cm mass at the base of the bladder. Correlation with a CT scan is recommended. There are no demonstrated bladder calculi. US/Kidney and Bladder IMPRESSION: Bilateral renal cysts. Questionable polypoid mass at the base of the bladder. Electronically Signed: Pradip Davison, at 14:08 EST , Service support ,
[2020-06-18 07:58] VITALS: BP 130/33; PULSE 67; RESP 16; TEMP 36.4; O2SAT 96
--- NOTE | 2020-06-18 08:08 | PCM.PN.HOSP ---
Patient Problems: Active and Suspected Problems (Last Reviewed 06/16/20 @ 17:[address] Fly Mejia, DO) RICCARDO (acute kidney injury) (Acute) Anemia (Acute) Reason for Visit: Acute kidney injury Symptomatic anemia Subjective: Patient is a 79-year-old lady resident at [facility] brought in with abnormal labs found to have anemia with hemoglobin of 6.5 as well as acute kidney injury with creatinine of 2.78 Objective: GENERAL: cooperative HEENT: Atraumatic; EYES; Anicteric, Normal Conjunctiva NECK; supple, normal thyroid, RESPIRATORY: Diminished to auscultation CARDIOVASCULAR: Regular S1 S2, GI: soft, normoactive bowel sounds, : No Renal angle tenderness; EXTREMITIES: No edema, no clubbing, MUSCULOSKELETAL: no muscle waisting NEURO: Awake; no lateralizing signs. SKIN: No Rash PSYCH; Flat affect Vitals/I&O's: Vital Signs Temp Pulse Resp BP Pulse Ox 97.5 F L 67 16 130/33 H 96 06/18/20 07:58 06/18/20 07:58 06/18/20 07:58 06/18/20 07:58 06/18/20 07:58 Oxygen Flow Rate (L/min) 2 Oxygen Delivery Method Room Air Weight: 67.3 kg Body Mass Index (BMI) 28.0 Finger Stick Blood Glucose 104 Intake and Output for Last 24 Hours 06/16/20 06/17/20 06/18/20 23:59 23:59 23:59 Intake Total 964.58 / 964.58 2897.5 / 3297.5 500 / 500 Output Total 275 / 275 Balance 964.58 / 964.58 2897.5 / 3122.5 225 / 225 Microbiology Past 72 Hours 06/16/20 19:45 Urine, Catheterized Urine Culture - Preliminary Mixed Gram Pos & Gram Neg Org 06/16/20 16:20 Stool Stool Occult Blood (MICHAEL) - Final Occult Blood Positive Laboratory Results 06/16/20 16:00: Crossmatch See Detail 06/16/20 19:45: Urine Color Brown, Urine Clarity Cloudy, Urine pH 6.5, Ur Specific [place] 1.015, Urine Protein 30 H, Urine Glucose (UA) Normal, Urine Ketones 5 H, Urine Occult Blood 250 H, Urine Nitrite Negative, Urine Bilirubin Negative, Urine Urobilinogen 1 H, Ur Leukocyte Esterase 500 H, Urine RBC 5-10 SEEN, Urine WBC 10-25 SEEN, Ur Squamous Epith Cells 0 SEEN, Calcium Oxalate Crystal RARE, Amorphous Sediment 2+, Urine Bacteria 4+, Urine Mucus 0 SEEN 06/17/20 04:40: Iron 114, TIBC 133 L, Iron Saturation 85.7 H 06/17/20 04:40: Magnesium 2.3 06/18/20 04:30: WBC 6.5, RBC 2.96 L, Hgb 8.3 L, Hct 26.8 L, MCV 90.5, MCH 28.0, MCHC 31.0 L, RDW Std Deviation 61.9 H, RDW Coeff of Blaine 19.1 H, Plt Count 156, MPV 10.0, Immature Gran % (Auto) 0.800, Neut % (Auto) 61.6, Lymph % (Auto) 14.0 L, [place] % (Auto) 14.0 H, Eos % (Auto) 9.0 H, Baso % (Auto) 0.6, Absolute Neuts (auto) 4.0, Absolute Lymphs (auto) 0.91, Nucleated RBC % 0 06/18/20 04:30: Sodium 139, Potassium 4.0, Chloride 108 H, Carbon Dioxide 25.0, Anion Gap 6, BUN 39 H, Creatinine 1.80 H, Estim Creat Clear Calc 19.12, Est GFR (MDRD) Af Amer 35 L, Est GFR (MDRD) Non-Af 29 L, BUN/Creatinine Ratio 21.7 H, Glucose 71 L, Calcium 7.3 L Current Medications Acetaminophen (Acetaminophen 325 Mg Tablet) 650 mg PO Q6H PRN PRN PRN Reason: Pain Score 1-10/Temp > 100.7 F Last Admin: 06/17/20 20:43 Dose: 650 mg Documented by: Amlodipine Besylate (Amlodipine 2.5 Mg Tablet) 2.5 mg PO DAILY [facility] Last Admin: 06/17/20 10:45 Dose: 2.5 mg Documented by: Ascorbic Acid (Ascorbic Acid 500 Mg Tablet) 1,000 mg PO BID [facility] Last Admin: 06/17/20 20:51 Dose: 1,000 mg Documented by: Atorvastatin Calcium (Atorvastatin Calcium 40 Mg Tablet) 40 mg PO QHS [facility] Last Admin: 06/17/20 20:51 Dose: 40 mg Documented by: Baclofen (Baclofen 10 Mg Tablet) 10 mg PO TID PRN PRN PRN Reason: BACK PAIN Calamine/Phenol (Menthol/Lanolin/Calamine/Znox 113 Gm Tube) 1 applic TOPICAL BID [facility]; Protocol Last Admin: 06/17/20 20:49 Dose: 1 applicatio Documented by: Calcium Carbonate (Calcium Carbon[facility] 500 Mg Tablet) [facility] Last Admin: 06/17/20 18:02 Dose: 1,000 mg Documented by: Carvedilol (Carvedilol 25 Mg Tablet) 25 mg PO BID [facility] Last Admin: 06/17/20 20:49 Dose: 25 mg Documented by: Cholecalciferol (Cholecalciferol (Vit D3) 1,000 Unit (25mcg)) 2,000 unit PO DAILY [facility] Last Admin: 06/17/20 10:45 Dose: 2,000 unit Documented by: Hydroxyzine Pamoate (Hydroxyzine Elisabeth 25 Mg Capsule) 25 mg PO Q6H PRN PRN PRN Reason: ITCHING Last Admin: 06/18/20 06:26 Dose: 25 mg Documented by: Leflunomide (Leflunomide 10 Mg Tablet) 20 mg PO DAILY [facility] Last Admin: 06/17/20 10:45 Dose: 20 mg Documented by: Levetiracetam (Levetiracetam 500 Mg Tablet) 500 mg PO BID [facility] Last Admin: 06/17/20 20:50 Dose: 500 mg Documented by: Losartan Potassium (Losartan Potassium 100 Mg Tablet) 100 mg PO DAILY [facility] Last Admin: 06/17/20 10:44 Dose: 100 mg Documented by: Magnesium Chloride (Magnesium Chloride 64 Mg Delay Rel.Tablet) 128 mg PO BID [facility] Last Admin: 06/17/20 20:50 Dose: 128 mg Documented by: Melatonin (Melatonin 10 Mg Tablet) 5 mg PO QHS PRN PRN Reason: SLEEP Last Admin: 06/17/20 23:55 Dose: 5 mg Documented by: Nutritional Formula (Lactose Free) (Ensure Enlive 120 Ml Liquid) 120 ml PO 4X/DAY [facility] Last Admin: 06/17/20 20:48 Dose: 120 ml Documented by: Nystatin (Nystatin Powder 15gm Bottle) 1 applic TOPICAL TID [facility]; Protocol Last Admin: 06/18/20 06:24 Dose: 1 applicatio Documented by: Pantoprazole Sodium (Pantoprazole Sodium 40 Mg Tablet) 40 mg PO DAILY [facility] Last Admin: 06/17/20 10:43 Dose: 40 mg Documented by: Polysaccharide Iron Complex (Iron Polysaccharide Complex 150 Mg Capsule) 150 mg PO BID [facility] Last Admin: 06/17/20 20:49 Dose: 150 mg Documented by: Sodium Chloride (0.9% Saline Lock 10 Ml Syringe) 10 - 40 ml IV UD PRN PRN Reason: SALINE FLUSH Last Admin: 06/16/20 23:26 Dose: 10 ml Documented by: Triamcinolone Acetonide (Triamcinolone 0.5% Cream) 1 applic TP BID [facility]; Protocol Last Admin: 06/17/20 20:50 Dose: 1 applicatio Documented by: STROKE Vital Signs/Narrative: Vital Signs Temp Pulse Resp BP Pulse Ox 06/18/20 07:58 97.5 F L 67 16 130/33 H 96 Medical Necessity - Tobacco Use Smoking Status: Never smoker Assessment/Plan All Active Problems (Last Reviewed 06/16/20 @ 17:[address] Fly Mejia, DO) RICCARDO (acute kidney injury) (Acute) Anemia (Acute) Dehydration (Resolved) Patient is a 79-year-old lady resident at [facility] brought in with abnormal labs found to have anemia with hemoglobin of 6.5 as well as acute kidney injury with creatinine of 2.78 1. Anemia - Secondary to chronic disorder monitoring H&H and transfuse confused with 2 unit RBC -Venous still remains low we will continue to monitor and transfuse if it drops below 7 2. Acute kidney injury ?Managed with IV fluid with subsequent monitoring of electrolyte -Slight improvement in kidney function 3. Hypocalcemia ?Corrected per protocol 4. 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 Requested for PT OT eval 5. Hypertension - Blood pressure controlled, home medications except for lisinopril in view of her impaired kidney function, continued with dose adjustment as needed 6. Seizure disorder ?Patient is on Keppra continue 7. Asymptomatic bacteriuria ?Monitor 8. DVT prophylaxis ?SCDs 9. Physical deconditioning - Requested for PT OT eval and certified social workers in health care to assist with discharge planning. Patient had also apparently expressed interest in hospice care consultation subsequently placed Inpatient E&M: 94197 Subs Hosp L2
[2020-06-18 08:35] LABS: Vitamin B12 1127 pg/mL (211-911)
--- NOTE | 2020-06-18 08:41 | NURSING ---
URINE OUTPUT CLOUDY YELLOW/LIGHT BROWN - STOOL IN URINE.
[2020-06-18] MEDS: Calcium Carbonate 500 MG Tablet 1000 MG PO (08:43)
[2020-06-18] MEDS: Iron Polysaccharide Complex 150 MG CAPSULE PO ×2 (08:44→21:30)
[2020-06-18] MEDS: Carvedilol 25 MG Tablet PO ×2 (08:44→21:28)
[2020-06-18] MEDS: Losartan Potassium 100 MG Tablet PO (08:44)
[2020-06-18] MEDS: Menthol/Lanolin/Calamine/Znox 113 GM Tube 1 APPLIC TOPICAL ×2 (08:44→21:30)
[2020-06-18] MEDS: levETIRAcetam 500 MG Tablet PO ×2 (08:44→21:29)
[2020-06-18] MEDS: Leflunomide 10 MG TABLET 20 MG PO (08:45)
[2020-06-18] MEDS: Magnesium Chloride 64 MG Delay Rel.Tablet 128 MG PO ×2 (08:45→21:29)
[2020-06-18] MEDS: Triamcinolone 0.5% Cream 1 APPLIC TP ×2 (08:46→21:27)
[2020-06-18] MEDS: amLODIPine 2.5 MG Tablet PO (08:46)
[2020-06-18] MEDS: Ascorbic Acid 500 MG Tablet 1000 MG PO ×2 (08:46→21:29)
[2020-06-18] MEDS: Pantoprazole Sodium 40 MG Tablet PO (08:46)
--- NOTE | 2020-06-18 09:07 | CASEMGMT ---
Addendum entered by Rola Coombs 06/18/20 09:27: SW updated that Hospice consult was placed. TUNDE reviewed chart, per handoff communication, Hospice referral was made yesterday and papers were faxed. TUNDE placed a call to [facility] and spoke with Keyona in admissions. Keyona confirms that she received referral. Keyona states they are meeting with pt's daughter currently. TUNDE asked Keyona to let this worker know when meeting is over, if pt signed Hospice papers, etc. Keyona states she will do so. Original Note: Social Work Note Pt is listed as being from [place]. TUNDE placed a call to [place] and spoke with Dilcia in admissions. 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 Dilcia states pt will need COVID test to return. Rola Coombs DIGITAL CONTENT COORDINATOR, LICENSED PESTICIDE APPLICATOR
--- NOTE | 2020-06-18 09:38 | NURSING ---
LATE ENTRY - 0900 - PT HAD MEDIUM EMESIS AFTER BEGINNING BREAKFAST OF UNDIGESTED FOOD. SOME MORNING PILLS NOTED IN EMESIS.
--- NOTE | 2020-06-18 12:13 | CASEMGMT ---
Social Work Note SW received message from Tamra at [facility] stating they met with pt's daughter Milli and Milli signed Hospice paperwork. SW then received message that pt's daughter Milli wanted to speak to this worker. SW placed a call to pt's daughter Milli. Milli states she signed Hospice paperwork, wanted to speak with physician to make sure it was an appropriate decision. Physician updated. Milli states she doesn't want pt to return to [place] states she would like to try [facility]. SW explained that this worker will go ahead and call [facility] to inquire about bed availability. Milli states understanding, states she is at [facility] now. TUNDE placed a call to [facility] and spoke with Abiola in admissions. Abiola states at this time they have 19 cases of COVID, having an outbreak, and are not accepting admissions at this time. SW in to speak with pt and Milli present. SW updated pt and Milli that [facility] is not accepting admissions at this time. Milli and pt agreeable to trying 1. [facility], 2. [facility], 3. [facility]. TUNDE explained that pending pt's insurance, going to ECF with Hospice may be private pay for room and board. TUNDE explained that the ECF would let this worker know about costs. Milli states she thinks pt had applied for Medicaid but is not sure what happened with it. TUNDE placed a call to Lo at [facility] and left message regarding referral. SW also asked about costs. SW waiting for call back. Plan: ECF with Hospice Rola Coombs FINANCIAL ADVISOR, ORDER SELECTOR
[2020-06-18] MEDS: Acetaminophen 325 MG Tablet 650 MG PO ×2 (12:28→21:32)
--- NOTE | 2020-06-18 13:09 | CASEMGMT ---
Addendum entered by Rola Coombs 06/18/20 16:32: TUNDE received call from Lo at [facility] stating they can accept pt, just need to confirm if pt will be coming private pay with Hospice or skilled under Medicare. Lo states pt has 40 days left under Medicare. TUNDE attempted to speak with pt. Pt sleeping. TUNDE placed a call to pt's daughter Milli and updated her that if [facility] goes [facility], pt will need to pay for room and board until Medicaid is active. TUNDE explained pt could go skilled initially to SNF and then once pt has Medicaid, pt could transition to Hospice care. TUNDE explained that room and board will be private pay regardless of which SNF pt goes to if pt goes with Hospice. TUNDE explained pt could also go skilled with Palliative Care. Milli states to have pt admit to [facility] skilled with Palliative Care. TUNDE spoke with PT/OT, pt will need to be evaluated tomorrow. TUNDE placed a call to Lo at [facility] and updated her pt will now be coming skilled with Palliative. TUNDE received message from Dilcia at [facility] stating [facility] had called them, wanted update on pt. Dilcia provided cell phone ([phone]). TUNDE placed a call to Dilcia stating this worker is not sure why pt's daughter and pt want to admit to different SNF. Dilcia states she has a call out to pt's daughter. SW to follow up with pt tomorrow. Original Note: Social Work Note TUNDE placed a call to Lo at [facility]. Lo asked why pt will not be returning to [facility]. TUNDE informed Lo that this worker is not sure, just pt and Milli stated they didn't want to return. Lo states if pt admits with Hospice, pt will be financially responsible for room and board which is $265 a day. Lo states if pt doesn't admit with Hospice, pt could admit skilled, while pt's daughter is working on pending medicaid and then could switch to Hospice once medicaid is established if pt has skilled days left. Lo states she would need to check with her business office, call [facility], etc before they can make a decision regarding pt's referral. TUNDE waiting for call back from Lo regarding referral and then will discuss with pt and Milli. Rola Coombs ENGINE REPAIRER, CATERING COORDINATOR
[2020-06-18 13:41] LABS: Pathologist Review Reviewed
[2020-06-18 14:00] VITALS: BP 123/32; PULSE 67; RESP 16; TEMP 36.4; O2SAT 97
[2020-06-18] MEDS: Ceftriaxone 1 GM/50 ML BAG IV (18:38)
[2020-06-18 20:00] VITALS: BP 120/45; PULSE 75; RESP 16; TEMP 36.4; O2SAT 96
[2020-06-18] MEDS: Atorvastatin Calcium 40 MG Tablet PO (21:30)
[2020-06-19] VITALS (7 sets, daily range): BP systolic 65–149; BP diastolic 33–58; PULSE 71–83; RESP 16; TEMP 36.9–37.3; O2SAT 94–98
[2020-06-19] MEDS: Nystatin Powder 15gm Bottle 1 APPLIC TOPICAL ×3 (06:45→23:02)
[2020-06-19 07:10] LABS: Hematocrit 27.4 % (37-47); Hemoglobin 8.7 g/dL (12.0-15.0); Mean Corp Hgb Conc 31.8 g/dL (32-36); Mean Corpuscular Hgb 29.1 pg (27.0-32.0); Mean Corpuscular Volume 91.6 fL (81-99); Mean Platelet Vol. 10.5 fl (6.2-12.0); Platelet Count 159 K/mm3 (150-450); RBC Distribution Width CV 19.1 % (11.6-14.6); RBC Distribution Width SD 63.1 fl (35.1-43.9); Red Blood Count 2.99 M/mm3 (4.2-5.4); White Blood Count 7.5 K/mm3 (4.4-11.0)
[2020-06-19 07:35] LABS: Anion Gap 6 (5-15); BUN 33 mg/dL (7-18); BUN/Creat Ratio 22.6 RATIO (10-20); Calcium,Total 7.7 mg/dL (8.5-10.1); Chloride 109 mmol/L (98-107); Creatinine, Serum 1.46 mg/dL (0.55-1.02); EST Glomerular Filtration Rate 37 mL/min (>60); Est Glom Filt Rate - Afr Amer 44 mL/min (>60); Estimated Creatinine Clearance 23.58 ml/min; Glucose 71 mg/dL (74-106); Magnesium 2.4 mg/dL (1.6-2.6); Potassium 3.8 mmol/L (3.5-5.1); Sodium Level 140 mmol/L (136-145)
--- NOTE | 2020-06-19 07:38 | CT_ITS ---
STUDY: CT ABDOMEN AND PELVIS WITHOUT CONTRAST REASON FOR EXAM: Female, 79 years old. Colovesical fistula evaluation, feculent material upon bae insertion, colostomy, anemia, acute kidney injury, left hip replacement, cholecystectomy, hyperectomy. RADIATION DOSAGE (If Supplied By Facility): CTDIvol = ( 11.68 ) mGy, DLP = ( 605.03 ) mGycm TECHNIQUE: Transaxial images were obtained from the dome of the diaphragm to the symphysis pubis without oral contrast, and without intravenous contrast. Sagittal and coronal images were reconstructed. Individualized dose optimization techniques were used for this CT. COMPARISON: Comparison is made with prior study dated 05/12/2020. FINDINGS: Small bilateral pleural effusions with bibasilar atelectasis more prominent on the left side. These have improved as compared to prior study. Coronary artery calcification. Normal liver. The patient is status post cholecystectomy. Normal spleen. There is diffuse atrophy of the pancreas. Normal bilateral adrenal glands. Stable small right renal cyst. 4.3 cm cyst in the upper pole of the left kidney. Normal visualized stomach. Normal small intestine. A colostomy is seen in the anterior left abdomen. Stable linear scar is seen in the subcutaneous fat in the left lower quadrant medial to the site of the left colostomy. Tiny air bubbles are seen within this scar suggestive of possible fistulous communication. The patient is status post appendectomy. There is diffuse atherosclerotic calcification of the abdominal aorta and the major visceral branches, without a demonstrated aneurysm. Normal inferior vena cava. Normal retroperitoneum. Small capacity urinary bladder. There is absence of the uterus consistent with a prior hysterectomy. Normal abdominal wall. There are diffuse degenerative changes of the visualized lumbar spine. Status post left total hip replacement. CT/Abdomen/Pel W ORAL Cont Only IMPRESSION: Limited visualization of the urinary bladder due to small size. A colostomy seen in the left lower quadrant. Stable bilateral renal cysts more prominent on the left side. Small bilateral effusions with bibasilar atelectasis more prominent on the left side. Electronically Signed: Pradip Davison, at 13:56 EST , Service support ,
--- NOTE | 2020-06-19 07:43 | PN_ITS ---
Patient Problems: Active and Suspected Problems (Last Reviewed 06/16/20 @ 17:[address] Fly Mejia, DO) RICCARDO (acute kidney injury) (Acute) Anemia (Acute) Reason for Visit: Acute kidney injury Symptomatic anemia Subjective: Patient is a 79-year-old lady resident at [facility] brought in with abnormal labs found to have anemia with hemoglobin of 6.5 as well as acute kidney injury with creatinine of 2.78 -Velez catheter was placed on 06/18/2020 feculent material found in patient urine bag. Consult subsequently placed to both urology as well as general surgery. CT of the abdomen and pelvis with oral contrast ordered to evaluate for possible colovesical fistula Objective: GENERAL: cooperative HEENT: Atraumatic; EYES; Anicteric, Normal Conjunctiva NECK; supple, normal thyroid, RESPIRATORY: Diminished to auscultation CARDIOVASCULAR: Regular S1 S2, GI: soft, normoactive bowel sounds, ostomy left lower quadrant : No Renal angle tenderness; EXTREMITIES: No edema, no clubbing, MUSCULOSKELETAL: no muscle waisting NEURO: Awake; no lateralizing signs. SKIN: No Rash PSYCH; Flat affect Vitals/I&O's: Vital Signs Temp Pulse Resp BP Pulse Ox 98.8 F 78 16 97/55 L 97 06/19/20 02:00 06/19/20 02:00 06/19/20 02:00 06/19/20 02:00 06/19/20 02:00 Oxygen Flow Rate (L/min) 2 Oxygen Delivery Method Room Air Weight: 67.3 kg Body Mass Index (BMI) 28.0 Finger Stick Blood Glucose 104 Intake and Output for Last 24 Hours 06/17/20 06/18/20 06/19/20 23:59 23:59 23:59 Intake Total 2897.5 / 3297.5 730 / 970 440 / 440 Output Total 400 / 550 375 / 375 Balance 2897.5 / 3122.5 330 / 420 65 / 65 Microbiology Past 72 Hours 06/16/20 19:45 Urine, Catheterized Urine Culture - Preliminary Mixed Gram Pos & Gram Neg Org 06/16/20 16:20 Stool Stool Occult Blood (MICHAEL) - Final Occult Blood Positive Laboratory Results 06/16/20 16:00: Diff Path Review Reviewed 06/16/20 16:00: Vitamin B12 1127 H 06/16/20 19:45: Urine Color Brown, Urine Clarity Cloudy, Urine pH 6.5, Ur Specific Cuthbert 1.015, Urine Protein 30 H, Urine Glucose (UA) Normal, Urine Ketones 5 H, Urine Occult Blood 250 H, Urine Nitrite Negative, Urine Bilirubin Negative, Urine Urobilinogen 1 H, Ur Leukocyte Esterase 500 H, Urine RBC 5-10 SEEN, Urine WBC 10-25 SEEN, Ur Squamous Epith Cells 0 SEEN, Calcium Oxalate Crystal RARE, Amorphous Sediment 2+, Urine Bacteria 4+, Urine Mucus 0 SEEN 06/18/20 08:45: Eos Smear Total Cells Pending 06/19/20 07:00: WBC 7.5, RBC 2.99 L, Hgb 8.7 L, Hct 27.4 L, MCV 91.6, MCH 29.1, MCHC 31.8 L, RDW Std Deviation 63.1 H, RDW Coeff of Blaine 19.1 H, Plt Count 159, MPV 10.5 06/19/20 07:00: Sodium 140, Potassium 3.8, Chloride 109 H, Carbon Dioxide 25.0, Anion Gap 6, BUN 33 H, Creatinine 1.46 H, Estim Creat Clear Calc 23.58, Est GFR (MDRD) Af Amer 44 L, Est GFR (MDRD) Non-Af 37 L, BUN/Creatinine Ratio 22.6 H, Glucose 71 L, Calcium 7.7 L, Magnesium 2.4 Current Medications Acetaminophen (Acetaminophen 325 Mg Tablet) 650 mg PO Q6H PRN PRN PRN Reason: Pain Score 1-10/Temp > 100.7 F Last Admin: 06/18/20 21:32 Dose: 650 mg Documented by: Amlodipine Besylate (Amlodipine 2.5 Mg Tablet) 2.5 mg PO DAILY [facility] Last Admin: 06/18/20 08:46 Dose: 2.5 mg Documented by: Ascorbic Acid (Ascorbic Acid 500 Mg Tablet) 1,000 mg PO BID [facility] Last Admin: 06/18/20 21:29 Dose: 1,000 mg Documented by: Atorvastatin Calcium (Atorvastatin Calcium 40 Mg Tablet) 40 mg PO QHS [facility] Last Admin: 06/18/20 21:30 Dose: 40 mg Documented by: Baclofen (Baclofen 10 Mg Tablet) 10 mg PO TID PRN PRN PRN Reason: BACK PAIN Calamine/Phenol (Menthol/Lanolin/Calamine/Znox 113 Gm Tube) 1 applic TOPICAL BID [facility]; Protocol Last Admin: 06/18/20 21:30 Dose: 1 applicatio Documented by: Calcium Carbonate (Calcium Carbonate 500 Mg Tablet) 1,000 mg PO BIDCM [facility] Last Admin: 06/18/20 17:43 Dose: Not Given Documented by: Carvedilol (Carvedilol 25 Mg Tablet) 25 mg PO BID [facility] Last Admin: 06/18/20 21:28 Dose: 25 mg Documented by: Cholecalciferol (Cholecalciferol (Vit D3) 1,000 Unit (25mcg)) 2,000 unit PO DAILY [facility] Last Admin: 06/18/20 08:46 Dose: 2,000 unit Documented by: Hydroxyzine Pamoate (Hydroxyzine Elisabeth 25 Mg Capsule) 25 mg PO Q6H PRN PRN PRN Reason: ITCHING Last Admin: 06/18/20 06:26 Dose: 25 mg Documented by: Ceftriaxone Sodium (Rocephin) 1 gm in 50 mls @ 100 mls/hr IV Q24 [facility] Iopamidol (Contrast Allergy Safety Check) 0 ml IV X1 [facility] Leflunomide (Leflunomide 10 Mg Tablet) 20 mg PO DAILY [facility] Last Admin: 06/18/20 08:45 Dose: 20 mg Documented by: Levetiracetam (Levetiracetam 500 Mg Tablet) 500 mg PO BID [facility] Last Admin: 06/18/20 21:29 Dose: 500 mg Documented by: Losartan Potassium (Losartan Potassium 100 Mg Tablet) 100 mg PO DAILY [facility] Last Admin: 06/18/20 08:44 Dose: 100 mg Documented by: Magnesium Chloride (Magnesium Chloride 64 Mg Delay Rel.Tablet) 128 mg PO BID [facility] Last Admin: 06/18/20 21:29 Dose: 128 mg Documented by: Melatonin (Melatonin 10 Mg Tablet) 5 mg PO QHS PRN PRN Reason: SLEEP Last Admin: 06/17/20 23:55 Dose: 5 mg Documented by: Nutritional Formula (Lactose Free) (Ensure Enlive 120 Ml Liquid) 120 ml PO 4X/DAY [facility] Last Admin: 06/18/20 21:27 Dose: 120 ml Documented by: Nystatin (Nystatin Powder 15gm Bottle) 1 applic TOPICAL TID [facility]; Protocol Last Admin: 06/19/20 06:45 Dose: 1 applicatio Documented by: Pantoprazole Sodium (Pantoprazole Sodium 40 Mg Tablet) 40 mg PO DAILY [facility] Last Admin: 06/18/20 08:46 Dose: 40 mg Documented by: Polysaccharide Iron Complex (Iron Polysaccharide Complex 150 Mg Capsule) 150 mg PO BID [facility] Last Admin: 06/18/20 21:30 Dose: 150 mg Documented by: Sodium Chloride (0.9% Saline Lock 10 Ml Syringe) 10 - 40 ml IV UD PRN PRN Reason: SALINE FLUSH Last Admin: 06/16/20 23:26 Dose: 10 ml Documented by: Triamcinolone Acetonide (Triamcinolone 0.5% Cream) 1 applic TP BID [facility]; Protocol Last Admin: 06/18/20 21:27 Dose: 1 applicatio Documented by: Medical Necessity - Tobacco Use Smoking Status: Never smoker Assessment/Plan All Active Problems (Last Reviewed 06/16/20 @ 17:[address] Fly Mejia, DO) RICCARDO (acute kidney injury) (Acute) Anemia (Acute) Dehydration (Resolved) Patient is a 79-year-old lady resident at [facility] brought in with abnormal labs found to have anemia with hemoglobin of 6.5 as well as acute kidney injury with creatinine of 2.78 1. Anemia - Secondary to chronic disorder monitoring H&H and transfuse with 2 unit RBC; monitoring H&H with plans to transfuse if hemoglobin falls below 7. -06/19/2020 hemoglobin stable at 8.7 2. Acute kidney injury ?Managed with IV fluid with subsequent monitoring of electrolyte -Slight improvement in kidney function 06/19/2020; creatinine down to 1.46. 3. 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 Consult subsequently placed to both urology as well as general surgery. CT of the abdomen and pelvis with oral contrast ordered to evaluate for possible colovesical fistula 4. History of colonic obstruction ?Status post Exploratory laparotomy with sigmoid colectomy and end colostomy on 03/19/2020; 5. Hypertension - Blood pressure controlled, home medications except for lisinopril in view of her impaired kidney function, continued with dose adjustment as needed 6. Seizure disorder ?Patient is on Keppra continue 7. Asymptomatic bacteriuria ?Monitor 8. Hypocalcemia ?Corrected per protocol 9. 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 Requested for PT OT eval 10. DVT prophylaxis ?SCDs 11. Physical deconditioning - Requested for PT OT eval and rn social work to assist with discharge planning. Patient had also apparently expressed interest in hospice care consultation subsequently placed Inpatient E&M: [id number] Subs Hosp L2
[2020-06-19] MEDS: Calcium Carbonate 500 MG Tablet 1000 MG PO ×2 (08:49→17:19)
[2020-06-19] MEDS: Menthol/Lanolin/Calamine/Znox 113 GM Tube 1 APPLIC TOPICAL ×2 (08:49→22:59)
[2020-06-19] MEDS: Carvedilol 25 MG Tablet PO (08:51)
[2020-06-19] MEDS: Magnesium Chloride 64 MG Delay Rel.Tablet 128 MG PO ×2 (08:51→23:01)
[2020-06-19] MEDS: levETIRAcetam 500 MG Tablet PO ×2 (08:51→23:02)
[2020-06-19] MEDS: Losartan Potassium 100 MG Tablet PO (08:51)
[2020-06-19] MEDS: Iron Polysaccharide Complex 150 MG CAPSULE PO ×2 (08:51→23:00)
[2020-06-19] MEDS: Leflunomide 10 MG TABLET 20 MG PO (08:52)
[2020-06-19] MEDS: Pantoprazole Sodium 40 MG Tablet PO (08:52)
[2020-06-19] MEDS: Ascorbic Acid 500 MG Tablet 1000 MG PO ×2 (08:52→23:03)
[2020-06-19] MEDS: amLODIPine 2.5 MG Tablet PO (08:52)
[2020-06-19] MEDS: Triamcinolone 0.5% Cream 1 APPLIC TP ×2 (08:53→23:02)
[2020-06-19] MEDS: Ceftriaxone 1 GM/50 ML BAG IV (09:54)
[2020-06-19] MEDS: Ondansetron 4 MG/2 ML Vial IV (10:20)
--- NOTE | 2020-06-19 10:22 | NURSING ---
pt reports finishing PO contrast and then having emesis, contacted CT scan, they are sending another bottle of PO contrast and will have pt try again with scan time of 1200. Dr Rodriguez notified and new order placed for zofran.
--- NOTE | 2020-06-19 11:50 | CON.PCM_ITS ---
Reason for Consult Date of Consultation: 06/19/20 History of Present Illness: The patient is a 79 year old F [facility] the [facility] with [facility]argy. She was found to have stool coming from her Velez catheter. She says this is been going on for over a month. Past Medical History Past Medical History (Chronic Problems): Chronic Problems (Last Reviewed 06/16/20 @ 17:[address] Fly Mejia, ) Contracture of wrist (Chronic) Chronic anemia (Chronic) CVA (cerebral vascular accident) (Chronic) Polymyalgia rheumatica (Chronic) Generalized weakness (Chronic) Debility (Chronic) Hypertension (Chronic) Chronic kidney disease, stage 2 (mild) (Chronic) GERD (gastroesophageal reflux disease) (Chronic) Coronary artery disease (Chronic) Seizure (Chronic) Hypomagnesemia (Chronic) Hyponatremia (Chronic) Large bowel obstruction (Chronic) BMI 36.0-36.9,adult (Chronic) Pulmonary hypertension (Chronic) RVSP 55 COPD (chronic obstructive pulmonary disease) (Chronic) AILYN (obstructive sleep apnea) (Chronic) AHI 115 and titrated to nasal CPAP 14 cm of water Atherosclerotic heart disease of 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) Chronic renal insufficiency, stage II (mild) (Chronic) Hyperglycemia, unspecified (Chronic) Carotid stenosis (Chronic) Renal artery stenosis (Chronic) HLD (hyperlipidemia) (Chronic) Benign essential hypertension (Chronic) Medical History: Medical History (Last Reviewed 06/16/20 @ 17:[address] Fly Mejia, DO) Severe sepsis (Inactive) A41.9, R65.20 Colitis (Inactive) K52.9 Cystitis (Inactive) N30.90 Polymyalgia rheumatica (Chronic) M35.3 Generalized weakness (Chronic) R53.1 Debility (Chronic) R53.81 Fall (Inactive) W19.XXXA Pancolitis (Inactive) K51.00 Diarrhea (Inactive) R19.7 Ileus (Inactive) K56.7 Lymphedema (Inactive) I89.0 Hypertension (Chronic) I10 Chronic kidney disease, stage 2 (mild) (Chronic) N18.2 GERD (gastroesophageal reflux disease) (Chronic) K21.9 Coronary artery disease (Chronic) I25.10 Seizure (Chronic) R56.9 Hypomagnesemia (Chronic) E83.42 Hyponatremia (Chronic) E87.1 Large bowel obstruction (Chronic) K56.609 Obstruction of colon (Inactive) K56.609 BMI 36.0-36.9,adult (Chronic) Z68.36 Pulmonary hypertension (Chronic) I27.20 RVSP 55 COPD (chronic obstructive pulmonary disease) (Chronic) J44.9 AILYN (obstructive sleep apnea) (Chronic) G47.33 AHI 115 and titrated to nasal CPAP 14 cm of water Atherosclerotic heart disease of 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) I25.10 Acute respiratory failure with hypoxia (Inactive) J96.01 Right lower lobe pneumonia (Inactive) J18.1 Sinus tachycardia by electrocardiogram (Inactive) R00.0 Chronic renal insufficiency, stage II (mild) (Chronic) N18.2 Hyperglycemia, unspecified (Chronic) R73.9 Carotid stenosis (Chronic) I65.29 Renal artery stenosis (Chronic) I70.1 HLD (hyperlipidemia) (Chronic) E78.5 Benign essential hypertension (Chronic) I10 Acute kidney insufficiency N28.9 NSTEMI (non-ST elevated myocardial infarction) I21.4 Barretts esophagus K22.70 Cerebrovascular disease I67.9 Former smoker, stopped smoking many years ago Z87.891 History of bleeding peptic ulcer Z87.11 Osteoarthritis Dehydration (Resolved) E86.0 Pneumonia J18.9 Severe sepsis A41.9, R65.20 Allergies gabapentin Allergy (Verified 06/16/20 15:54) Unknown nortriptyline Allergy (Verified 06/16/20 15:54) Unknown rofecoxib [From Vioxx] Allergy (Verified 06/16/20 15:54) Unknown tacrolimus Allergy (Verified 06/16/20 15:54) Unknown ciprofloxacin Adverse Reaction (Severe, Verified 06/16/20 15:54) seizure seizure metronidazole Adverse Reaction (Severe, Verified 06/16/20 15:54) seizure morphine Adverse Reaction (Verified 06/16/20 15:54) Nausea Home Medications: Ambulatory Orders Medication Instructions Recorded Calcium Carbonate [Tums] 1,000 mg PO BIDCM tab 03/15/20 Carvedilol [Coreg (Beta Gertrudis)] 25 mg PO BID tab 03/15/20 Magnesium Oxide 400 mg PO BID #60 tab 03/15/20 levETIRAcetam tablet [Keppra 500 mg PO BID tab 03/15/20 tablet] Melatonin 5 mg PO QHS PRN 04/24/20 Acetaminophen [Tylenol] 650 mg PO Q6H PRN PRN 05/01/20 Amlodipine [Norvasc] 2.5 mg PO DAILY 05/01/20 Aspirin [Aspirin, Baby] 81 mg PO DAILY@0800 05/01/20 Cholecalciferol (Vitamin D3) 2,000 unit PO DAILY 05/01/20 [D3-2000] Clopidogrel Bisulfate [Plavix] 75 mg PO DAILY 05/01/20 Leflunomide 20 mg PO DAILY 05/01/20 Losartan Potassium [Cozaar] 100 mg PO DAILY 05/01/20 Pantoprazole Sodium [Protonix] 40 mg PO DAILY 05/01/20 Atorvastatin Calcium [Lipitor] 40 mg PO QHS tab 05/14/20 Ascorbic Acid [C-1000] 1,000 mg PO BID 06/16/20 Baclofen [Lioresal] 10 mg PO TID PRN PRN 06/16/20 Calcium Carbonate [Calcium] 500 mg PO Q4H PRN PRN 06/16/20 DiphenhydrAMINE Liquid [Benadryl 12.5 mg PO BID 06/16/20 Liquid] DiphenhydrAMINE Liquid [Benadryl 12.5 mg PO TID PRN PRN 06/16/20 Liquid] Hydroxyzine HCl 25 mg PO Q6H PRN PRN 06/16/20 Iron Polysaccharide Complex 150 mg PO BID 06/16/20 [Polysaccharide Iron] Triamcinolone Acetonide 1 applic TP BID 06/16/20 Zinc 50 mg PO BID 06/16/20 Surgical History: Surgical History (Last Reviewed 06/16/20 @ 17:[address] Fly Mejia DO) H/O carotid endarterectomy Z98.890 History of cholecystectomy Z90.49 History of hysterectomy Z90.710 History of left hip replacement Z96.642 History of total right knee replacement Z96.651 Surgical History: appendectomy, cholecystectomy, hysterectomy, total hip arthroplasty - Left., total knee arthroplasty - Right., - - Exploratory laparotomy, carotid endarterectomy. Psychiatric History: No pertinent psych hx GARMENT MENDER History: No pertinent GARMENT MENDER history Smoking Status: Never smoker - *Family History Paternal Family History: Family History (Last Reviewed 06/16/20 @ 17:[address] Fly Mejia DO) Mother Cancer Father Emphysema of lung Aunt Cancer Grandfather Vascular disease Grandmother Diabetes Brother Cancer History Items: Pulmonary Disease Maternal Family History: Family History (Last Reviewed 06/16/20 @ 17:[address] Fly Mejia DO) Mother Cancer Father Emphysema of lung Aunt Cancer Grandfather Vascular disease Grandmother Diabetes Brother Cancer History Items: Cancer Review of Systems Constitutional: Denies: Anorexia, Fever Eyes: Denies: Blurred vision Cardiovascular: Denies: Heaviness Respiratory: Denies: Cough Gastrointestinal: Denies: Abdominal Pain Psychiatric: Denies: Anxiety Hematologic/ Lymphatic: Reports: Anemia Patient Problems: Active and Suspected Problems (Last Reviewed 06/16/20 @ 17:[address] Fly stone DO) RICCARDO (acute kidney injury) (Acute) Anemia (Acute) - Physical Exam Vitals/I&O's: Vital Signs Temp Pulse Resp BP Pulse Ox 98.4 F 75 16 122/58 H 98 06/19/20 08:25 06/19/20 08:25 06/19/20 08:25 06/19/20 08:25 06/19/20 08:25 Oxygen Flow Rate (L/min) 2 Oxygen Delivery Method Room Air Weight: 148 lb 5.938 oz Body Mass Index (BMI) 28.0 Finger Stick Blood Glucose 104 Intake and Output for Last 24 Hours 06/17/20 06/18/20 06/19/20 23:59 23:59 23:59 Intake Total 2897.5 / 3297.5 730 / 970 840 / 840 Output Total 400 / 550 475 / 475 Balance 2897.5 / 3122.5 330 / 420 365 / 365 General: Alert, Cooperative, No apparent distress Neck: No JVD Lungs: Clear to auscultation Cardiovascular: Regular rate, Regular Rhythm Abdomen: Soft, Non Tender, Non-Distended, - - Stoma is pink and intact Extremities: No clubbing Skin: No rashes Microbiology Past 72 Hours 06/16/20 19:45 Urine, Catheterized Urine Culture - Preliminary Pseudomonas aeroginosa GPC Poss Enterococcus sp 06/16/20 16:20 Stool Stool Occult Blood (MICHAEL) - Final Occult Blood Positive Laboratory Results 06/16/20 16:00: Diff Path Review Reviewed 06/16/20 19:45: Urine Color Brown, Urine Clarity Cloudy, Urine pH 6.5, Ur Specific Zirconia 1.015, Urine Protein 30 H, Urine Glucose (UA) Normal, Urine Ketones 5 H, Urine Occult Blood 250 H, Urine Nitrite Negative, Urine Bilirubin Negative, Urine Urobilinogen 1 H, Ur Leukocyte Esterase 500 H, Urine RBC 5-10 SEEN, Urine WBC 10-25 SEEN, Ur Squamous Epith Cells 0 SEEN, Calcium Oxalate Crystal RARE, Amorphous Sediment 2+, Urine Bacteria 4+, Urine Mucus 0 SEEN 06/19/20 07:00: WBC 7.5, RBC 2.99 L, Hgb 8.7 L, Hct 27.4 L, MCV 91.6, MCH 29.1, MCHC 31.8 L, RDW Std Deviation 63.1 H, RDW Coeff of Blaine 19.1 H, Plt Count 159, MPV 10.5 06/19/20 07:00: Sodium 140, Potassium 3.8, Chloride 109 H, Carbon Dioxide 25.0, Anion Gap 6, BUN 33 H, Creatinine 1.46 H, Estim Creat Clear Calc 23.58, Est GFR (MDRD) Af Amer 44 L, Est GFR (MDRD) Non-Af 37 L, BUN/Creatinine Ratio 22.6 H, Glucose 71 L, Calcium 7.7 L, Magnesium 2.4 Current Medications Acetaminophen (Acetaminophen 325 Mg Tablet) 650 mg PO Q6H PRN PRN PRN Reason: Pain Score 1-10/Temp > 100.7 F Last Admin: 06/18/20 21:32 Dose: 650 mg Documented by: Amlodipine Besylate (Amlodipine 2.5 Mg Tablet) 2.5 mg PO DAILY [facility] Last Admin: 06/19/20 08:52 Dose: 2.5 mg Documented by: Ascorbic Acid (Ascorbic Acid 500 Mg Tablet) 1,000 mg PO BID [facility] Last Admin: 06/19/20 08:52 Dose: 1,000 mg Documented by: Atorvastatin Calcium (Atorvastatin Calcium 40 Mg Tablet) 40 mg PO QHS [facility] Last Admin: 06/18/20 21:30 Dose: 40 mg Documented by: Baclofen (Baclofen 10 Mg Tablet) 10 mg PO TID PRN PRN PRN Reason: BACK PAIN Calamine/Phenol (Menthol/Lanolin/Calamine/Znox 113 Gm Tube) 1 applic TOPICAL BID [facility]; Protocol Last Admin: 06/19/20 08:49 Dose: 1 applicatio Documented by: Calcium Carbonate (Calcium Carbonate 500 Mg Tablet) [facility] Last Admin: 06/19/20 08:49 Dose: 1,000 mg Documented by: Carvedilol (Carvedilol 25 Mg Tablet) 25 mg PO BID [facility] Last Admin: 06/19/20 08:51 Dose: 25 mg Documented by: Cholecalciferol (Cholecalciferol (Vit D3) 1,000 Unit (25mcg)) 2,000 unit PO DAILY [facility] Last Admin: 06/19/20 08:52 Dose: 2,000 unit Documented by: Hydroxyzine Pamoate (Hydroxyzine Elisabeth 25 Mg Capsule) 25 mg PO Q6H PRN PRN PRN Reason: ITCHING Last Admin: 06/18/20 06:26 Dose: 25 mg Documented by: Ceftriaxone Sodium (Rocephin) 1 gm in 50 mls @ 100 mls/hr IV Q24 [facility] Last Infusion: 06/19/20 10:24 Dose: Infused Documented by: Leflunomide (Leflunomide 10 Mg Tablet) 20 mg PO DAILY [facility] Last Admin: 06/19/20 08:52 Dose: 20 mg Documented by: Levetiracetam (Levetiracetam 500 Mg Tablet) 500 mg PO BID [facility] Last Admin: 06/19/20 08:51 Dose: 500 mg Documented by: Losartan Potassium (Losartan Potassium 100 Mg Tablet) 100 mg PO DAILY [facility] Last Admin: 06/19/20 08:51 Dose: 100 mg Documented by: Magnesium Chloride (Magnesium Chloride 64 Mg Delay Rel.Tablet) 128 mg PO BID [facility] Last Admin: 06/19/20 08:51 Dose: 128 mg Documented by: Melatonin (Melatonin 10 Mg Tablet) 5 mg PO QHS PRN PRN Reason: SLEEP Last Admin: 06/17/20 23:55 Dose: 5 mg Documented by: Nutritional Formula (Lactose Free) (Ensure Enlive 120 Ml Liquid) 120 ml PO 4X/DAY [facility] Last Admin: 06/19/20 08:50 Dose: Not Given Documented by: Nystatin (Nystatin Powder 15gm Bottle) 1 applic TOPICAL TID [facility]; Protocol Last Admin: 06/19/20 06:45 Dose: 1 applicatio Documented by: Ondansetron HCl (Ondansetron 4 Mg/2 Ml Vial) 4 mg IV Q6H PRN PRN PRN Reason: NAUSEA/VOMITING Last Admin: 06/19/20 10:20 Dose: 4 mg Documented by: Pantoprazole Sodium (Pantoprazole Sodium 40 Mg Tablet) 40 mg PO DAILY [facility] Last Admin: 06/19/20 08:52 Dose: 40 mg Documented by: Polysaccharide Iron Complex (Iron Polysaccharide Complex 150 Mg Capsule) 150 mg PO BID [facility] Last Admin: 06/19/20 08:51 Dose: 150 mg Documented by: Sodium Chloride (0.9% Saline Lock 10 Ml Syringe) 10 - 40 ml IV UD PRN PRN Reason: SALINE FLUSH Last Admin: 06/16/20 23:26 Dose: 10 ml Documented by: Triamcinolone Acetonide (Triamcinolone 0.5% Cream) 1 applic TP BID [facility]; Protocol Last Admin: 06/19/20 08:53 Dose: 1 applicatio Documented by: Assessment/Plan All Active Problems (Last Reviewed 06/16/20 @ 17:[address] 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 The patient is passing stool through her Velez catheter. She says is been going on for a long time. I reviewed her CAT scan from the [facility] in May and appears there is a fistulous contact between the bladder and bowel but I do not believe it is colon. The patient has a diverting colostomy which is more proximal than the sigmoid colon near the bladder. This may be small bowel or other part of the colon. I have talked to Dr. Rodriguez and he is ordering an oral contrast CT of the abdomen pelvis to see if it can be better delineated. 2. The urologist is also on consult and the patient would need cystoscopy before decision about surgery as the ultrasound showed a possible bladder mass. Unsure if there is a bladder mass causing this fistulization and that would make things much more complicated. I also discussed the patient's situation with her as she is had a very difficult winter. The patient was admitted for Covid in May and suffered a CVA at the same time. The patient was deciding between further treatment or hospice. I discussed that this would be a difficult and complicated surgery if I were to repair a bladder fistula for her and she is deciding how she would like to proceed. Await urology input and possible cystoscopy as well as CT scan. David Cortez MD Pager: [facility] [address] [place] [address] [address] [place] [phone] Office:
--- NOTE | 2020-06-19 13:21 | CASEMGMT ---
Addendum entered by Rola Coombs 06/19/20 13:56: TUNDE placed a call to [facility] and spoke with Kvng in admissions. TUNDE updated Kvng that pt will be discharged to [facility] with Palliative, not Hospice. Kvng states she will get in contact with pt's family to sign Palliative Paperwork. Original Note: Social Work Note SW in to speak with pt and pt's daughter Milli. TUNDE spoke with Milli and pt about discharge plans. TUNDE updated pt that if she admits to [facility] with Hospice, pt will be private pay for room and board. TUNDE explained that if pt goes skilled under Medicare to SNF, then Medicare would cover skilled days for pt for remaining days that she has available and during this time pt can apply for Medicaid. TUNDE expalined that once pt has Medicaid, pt can switch to Hospice Care. TUNDE explained that pt would not be able to admit with Hospice but pt could admit with Palliative Care. TUNDE explained that pt would need to do therapy for skilled. Pt and Milli agreeable to pt admitting to [facility] skilled with Palliative Care. TUNDE placed a call to Lo at [facility] and updated her. TUNDE faxed updated clinicals. Pt not medically ready for discharge today. Plan: [facility] skilled with Palliative once medically cleared Rola Coombs EHS ENGINEER, CONTRACT ADMINISTRATION MANAGER
[2020-06-19] MEDS: 0.9% Normal Saline 1,000 ML 150 ML IV ×2 (15:09→22:59)
[2020-06-19] MEDS: 0.9% Saline Lock 10 ML Syringe IV (15:10)
[2020-06-19 15:21] LABS: Eosinophil Ct. Urine 4 % (.)
[2020-06-19] MEDS: Atorvastatin Calcium 40 MG Tablet PO (23:01)
[2020-06-20] MEDS: Acetaminophen 325 MG Tablet 650 MG PO (01:58)
[2020-06-20 05:20] VITALS: BP 132/48; PULSE 90; RESP 16; TEMP 36.8; O2SAT 96
[2020-06-20 05:42] LABS: Hematocrit 25.3 % (37-47); Hemoglobin 7.6 g/dL (12.0-15.0); Mean Corpuscular Hgb 28.3 pg (27.0-32.0); Mean Corpuscular Volume 94.1 fL (81-99); Mean Platelet Vol. 10.3 fl (6.2-12.0); Platelet Count 131 K/mm3 (150-450); RBC Distribution Width CV 18.8 % (11.6-14.6); Red Blood Count 2.69 M/mm3 (4.2-5.4); White Blood Count 6.4 K/mm3 (4.4-11.0)
[2020-06-20] MEDS: 0.9% Normal Saline 1,000 ML 150 ML IV ×3 (05:56→19:37)
[2020-06-20] MEDS: Nystatin Powder 15gm Bottle 1 APPLIC TOPICAL ×3 (05:56→23:29)
[2020-06-20 05:59] LABS: Anion Gap 4 (5-15); BUN 27 mg/dL (7-18); BUN/Creat Ratio 23.1 RATIO (10-20); Calcium,Total 7.1 mg/dL (8.5-10.1); Chloride 116 mmol/L (98-107); Creatinine, Serum 1.17 mg/dL (0.55-1.02); EST Glomerular Filtration Rate 47 mL/min (>60); Est Glom Filt Rate - Afr Amer 57 mL/min (>60); Estimated Creatinine Clearance 29.42 ml/min; Glucose 70 mg/dL (74-106); Potassium 3.6 mmol/L (3.5-5.1); Sodium Level 142 mmol/L (136-145)
--- NOTE | 2020-06-20 08:05 | PCM.PN.HOSP ---
Patient Problems: Active and Suspected Problems (Last Reviewed 06/20/20 @ 08:[address] Jairo Wolfe MD) RICCARDO (acute kidney injury) (Acute) Anemia (Acute) Colovesical fistula (Acute) Reason for Visit: Acute kidney injury Symptomatic anemia Subjective: Patient is a 79-year-old lady resident at [facility] brought in with abnormal labs found to have anemia with hemoglobin of 6.5 as well as acute kidney injury with creatinine of 2.78 -Velez catheter was placed on 06/18/2020 feculent material found in patient urine bag. Consult subsequently placed to both urology as well as general surgery. CT of the abdomen and pelvis with oral contrast ordered to evaluate for possible colovesical fistula ?06/20/2020; CT of the abdomen and pelvis obtained on 06/19/2020 demonstrated possibility of colovesical fistula. Consult has been placed to both urology as well as general surgery. Objective: GENERAL: cooperative HEENT: Atraumatic; EYES; Anicteric, Normal Conjunctiva NECK; supple, normal thyroid, RESPIRATORY: Diminished to auscultation CARDIOVASCULAR: Regular S1 S2, GI: soft, normoactive bowel sounds, ostomy left lower quadrant : No Renal angle tenderness; EXTREMITIES: No edema, no clubbing, MUSCULOSKELETAL: no muscle waisting NEURO: Awake; no lateralizing signs. SKIN: No Rash PSYCH; Flat affect Vitals/I&O's: Vital Signs Temp Pulse Resp BP Pulse Ox 98.3 F 90 16 132/48 H 96 06/20/20 05:20 06/20/20 05:20 06/20/20 05:20 06/20/20 05:20 06/20/20 05:20 Oxygen Flow Rate (L/min) 2 Oxygen Delivery Method Room Air Weight: 67.3 kg Body Mass Index (BMI) 28.0 Finger Stick Blood Glucose 104 Intake and Output for Last 24 Hours 06/18/20 06/19/20 06/20/20 23:59 23:59 23:59 Intake Total 730 / 970 1960 / 2160 1300 / 1300 Output Total 400 / 550 925 / 1075 475 / 475 Balance 330 / 420 1035 / 1085 825 / 825 Microbiology Past 72 Hours 06/16/20 19:45 Urine, Catheterized Urine Culture - Preliminary Pseudomonas aeroginosa GPC Poss Enterococcus sp Laboratory Results 06/18/20 08:45: Eos Smear Total Cells 4 06/20/20 05:15: WBC 6.4, RBC 2.69 L, Hgb 7.6 L, Hct 25.3 L, MCV 94.1, MCH 28.3, MCHC 30.0 L D, RDW Std Deviation 65.0 H, RDW Coeff of Blaine 18.8 H, Plt Count 131 L, MPV 10.3 06/20/20 05:15: Sodium 142, Potassium 3.6, Chloride 116 H, Carbon Dioxide 22.0, Anion Gap 4 L, BUN 27 H, Creatinine 1.17 H, Estim Creat Clear Calc 29.42, Est GFR (MDRD) Af Amer 57 L, Est GFR (MDRD) Non-Af 47 L, BUN/Creatinine Ratio 23.1 H, Glucose 70 L, Calcium 7.1 L Current Medications Acetaminophen (Acetaminophen 325 Mg Tablet) 650 mg PO Q6H PRN PRN PRN Reason: Pain Score 1-10/Temp > 100.7 F Last Admin: 06/20/20 01:58 Dose: 650 mg Documented by: Ascorbic Acid (Ascorbic Acid 500 Mg Tablet) 1,000 mg PO BID [facility] Last Admin: 06/19/20 23:03 Dose: 1,000 mg Documented by: Atorvastatin Calcium (Atorvastatin Calcium 40 Mg Tablet) 40 mg PO QHS [facility] Last Admin: 06/19/20 23:01 Dose: 40 mg Documented by: Baclofen (Baclofen 10 Mg Tablet) 10 mg PO TID PRN PRN PRN Reason: BACK PAIN Calamine/Phenol (Menthol/Lanolin/Calamine/Znox 113 Gm Tube) 1 applic TOPICAL BID [facility]; Protocol Last Admin: 06/19/20 22:59 Dose: 1 applicatio Documented by: Calcium Carbonate (Calcium Carbonate 500 Mg Tablet) [facility] Last Admin: 06/19/20 17:19 Dose: 1,000 mg Documented by: Carvedilol (Carvedilol 25 Mg Tablet) 25 mg PO BID [facility] Last Admin: 06/19/20 08:51 Dose: 25 mg Documented by: Cholecalciferol (Cholecalciferol (Vit D3) 1,000 Unit (25mcg)) 2,000 unit PO DAILY [facility] Last Admin: 06/19/20 08:52 Dose: 2,000 unit Documented by: Hydroxyzine Pamoate (Hydroxyzine Elisabeth 25 Mg Capsule) 25 mg PO Q6H PRN PRN PRN Reason: ITCHING Last Admin: 06/18/20 06:26 Dose: 25 mg Documented by: Ceftriaxone Sodium (Rocephin) 1 gm in 50 mls @ 100 mls/hr IV Q24 [facility] Last Infusion: 06/19/20 10:24 Dose: Infused Documented by: Sodium Chloride () 1,000 mls @ 150 mls/hr IV .Q6H40M [facility] Stop: 06/20/20 23:59 Last Admin: 06/20/20 05:56 Dose: 150 mls/hr Documented by: Leflunomide (Leflunomide 10 Mg Tablet) 20 mg PO DAILY [facility] Last Admin: 06/19/20 08:52 Dose: 20 mg Documented by: Levetiracetam (Levetiracetam 500 Mg Tablet) 500 mg PO BID [facility] Last Admin: 06/19/20 23:02 Dose: 500 mg Documented by: Magnesium Chloride (Magnesium Chloride 64 Mg Delay Rel.Tablet) 128 mg PO BID [facility] Last Admin: 06/19/20 23:01 Dose: 128 mg Documented by: Melatonin (Melatonin 10 Mg Tablet) 5 mg PO QHS PRN PRN Reason: SLEEP Last Admin: 06/17/20 23:55 Dose: 5 mg Documented by: Nutritional Formula (Lactose Free) (Ensure Enlive 120 Ml Liquid) 120 ml PO 4X/DAY [facility] Last Admin: 06/19/20 23:00 Dose: 120 ml Documented by: Nystatin (Nystatin Powder 15gm Bottle) 1 applic TOPICAL TID [facility]; Protocol Last Admin: 06/20/20 05:56 Dose: 1 applicatio Documented by: Ondansetron HCl (Ondansetron 4 Mg/2 Ml Vial) 4 mg IV Q6H PRN PRN PRN Reason: NAUSEA/VOMITING Last Admin: 06/19/20 10:20 Dose: 4 mg Documented by: Pantoprazole Sodium (Pantoprazole Sodium 40 Mg Tablet) 40 mg PO DAILY [facility] Last Admin: 06/19/20 08:52 Dose: 40 mg Documented by: Polysaccharide Iron Complex (Iron Polysaccharide Complex 150 Mg Capsule) 150 mg PO BID [facility] Last Admin: 06/19/20 23:00 Dose: 150 mg Documented by: Sodium Chloride (0.9% Saline Lock 10 Ml Syringe) 10 - 40 ml IV UD PRN PRN Reason: SALINE FLUSH Last Admin: 06/19/20 15:10 Dose: 10 ml Documented by: Triamcinolone Acetonide (Triamcinolone 0.5% Cream) 1 applic TP BID [facility]; Protocol Last Admin: 06/19/20 23:02 Dose: 1 applicatio Documented by: STROKE Vital Signs/Narrative: Vital Signs Temp Pulse Resp BP Pulse Ox 06/20/20 05:20 98.3 F 90 16 132/48 H 96 Medical Necessity - Tobacco Use Smoking Status: Never smoker Assessment/Plan All Active Problems (Last Reviewed 06/20/20 @ 08:[address] Jairo Wolfe MD) RICCARDO (acute kidney injury) (Acute) Anemia (Acute) Colovesical fistula (Acute) Dehydration (Resolved) Patient is a 79-year-old lady resident at [facility] brought in with abnormal labs found to have anemia with hemoglobin of 6.5 as well as acute kidney injury with creatinine of 2.78 1. Anemia - Secondary to chronic disorder monitoring H&H and transfuse with 2 unit RBC; monitoring H&H with plans to transfuse if hemoglobin falls below 7. -06/19/2020 hemoglobin stable at 8.7 2. Acute kidney injury ?Managed with IV fluid with subsequent monitoring of electrolyte -Slight improvement in kidney function 06/19/2020; creatinine down to 1.46. -1321; kidney function continues to improve 3. 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 Consult subsequently placed to both urology as well as general surgery. CT of the abdomen and pelvis with oral contrast ordered to evaluate for possible colovesical fistula ?06/20/2020; CT of the abdomen and pelvis obtained on 06/19/2020 demonstrated possibility of colovesical fistula. Consult has been placed to both urology as well as general surgery. 4. History of colonic obstruction ?Status post Exploratory laparotomy with sigmoid colectomy and end colostomy on 03/19/2020; 5. Hypertension - Blood pressure controlled, home medications except for lisinopril in view of her impaired kidney function, continued with dose adjustment as needed 6. Seizure disorder ?Patient is on Keppra continue 7. Asymptomatic bacteriuria ?Monitor 8. Hypocalcemia ?Corrected per protocol 9. 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 Requested for PT OT eval 10. DVT prophylaxis ?SCDs 11. Physical deconditioning - Requested for PT OT eval and secondary social studies teacher to assist with discharge planning. Patient had also apparently expressed interest in hospice care consultation subsequently placed 12. Questionable bladder mass ?Patient to undergo cystoscopy as outpatient if that is the route family chooses Inpatient E&M: 13989 Subs Hosp L2
--- NOTE | 2020-06-20 08:18 | CON.PCM_ITS ---
Problem List (1) Colovesical fistula Status: Acute Reason for Consult Date of Consultation: 06/20/20 Reason for Consultation: Colovesical fistula History of Present Illness: The patient is a 79 year old female who presented with a chronic catheter she has some sort of fecal material coming from the urine is reported on ultrasound there is a possible mass within the bladder could be inflammation as well. CAT scan was done but impossible to tell since she has a artificial hip and possible see the bladder she will have to get set up for cystoscopy at some point to evaluate the bladder it appears that she may have a fistula but exactly to what organ is difficult to tell impossible to tell on CAT scan. At this point she is still being stabilized there is no urgency to do a cystoscopy this could be done as an outpatient. Past Medical History Past Medical History (Chronic Problems): Chronic Problems (Last Reviewed 06/20/20 @ 08:[address] Jairo Wolfe MD) Contracture of wrist (Chronic) Chronic anemia (Chronic) CVA (cerebral vascular accident) (Chronic) Polymyalgia rheumatica (Chronic) Generalized weakness (Chronic) Debility (Chronic) Hypertension (Chronic) Chronic kidney disease, stage 2 (mild) (Chronic) GERD (gastroesophageal reflux disease) (Chronic) Coronary artery disease (Chronic) Seizure (Chronic) Hypomagnesemia (Chronic) Hyponatremia (Chronic) Large bowel obstruction (Chronic) BMI 36.0-36.9,adult (Chronic) Pulmonary hypertension (Chronic) RVSP 55 COPD (chronic obstructive pulmonary disease) (Chronic) AILYN (obstructive sleep apnea) (Chronic) AHI 115 and titrated to nasal CPAP 14 cm of water Atherosclerotic heart disease of [place] coronary artery without angina pectoris (Chronic) Chronic renal insufficiency, stage II (mild) (Chronic) Hyperglycemia, unspecified (Chronic) Carotid stenosis (Chronic) Renal artery stenosis (Chronic) HLD (hyperlipidemia) (Chronic) Benign essential hypertension (Chronic) Medical History: Medical History (Last Reviewed 06/20/20 @ 08:[address] Jairo Wolfe MD) Severe sepsis (Inactive) A41.9, R65.20 Colitis (Inactive) K52.9 Cystitis (Inactive) N30.90 Polymyalgia rheumatica (Chronic) M35.3 Generalized weakness (Chronic) R53.1 Debility (Chronic) R53.81 Fall (Inactive) W19.XXXA Pancolitis (Inactive) K51.00 Diarrhea (Inactive) R19.7 Ileus (Inactive) K56.7 Lymphedema (Inactive) I89.0 Hypertension (Chronic) I10 Chronic kidney disease, stage 2 (mild) (Chronic) N18.2 GERD (gastroesophageal reflux disease) (Chronic) K21.9 Coronary artery disease (Chronic) I25.10 Seizure (Chronic) R56.9 Hypomagnesemia (Chronic) E83.42 Hyponatremia (Chronic) E87.1 Large bowel obstruction (Chronic) K56.609 Obstruction of colon (Inactive) K56.609 BMI 36.0-36.9,adult (Chronic) Z68.36 Pulmonary hypertension (Chronic) I27.20 RVSP 55 COPD (chronic obstructive pulmonary disease) (Chronic) J44.9 AILYN (obstructive sleep apnea) (Chronic) G47.33 AHI 115 and titrated to nasal CPAP 14 cm of water Atherosclerotic heart disease of [place] coronary artery without angina pectoris (Chronic) I25.10 Acute respiratory failure with hypoxia (Inactive) J96.01 Right lower lobe pneumonia (Inactive) J18.1 Sinus tachycardia by electrocardiogram (Inactive) R00.0 Chronic renal insufficiency, stage II (mild) (Chronic) N18.2 Hyperglycemia, unspecified (Chronic) R73.9 Carotid stenosis (Chronic) I65.29 Renal artery stenosis (Chronic) I70.1 HLD (hyperlipidemia) (Chronic) E78.5 Benign essential hypertension (Chronic) I10 Acute kidney insufficiency N28.9 NSTEMI (non-ST elevated myocardial infarction) I21.4 Barretts esophagus K22.70 Cerebrovascular disease I67.9 Former smoker, stopped smoking many years ago Z87.891 History of bleeding peptic ulcer Z87.11 Osteoarthritis Dehydration (Resolved) E86.0 Pneumonia J18.9 Severe sepsis A41.9, R65.20 Allergies gabapentin Allergy (Verified 06/16/20 15:54) Unknown nortriptyline Allergy (Verified 06/16/20 15:54) Unknown rofecoxib [From Vioxx] Allergy (Verified 06/16/20 15:54) Unknown tacrolimus Allergy (Verified 06/16/20 15:54) Unknown ciprofloxacin Adverse Reaction (Severe, Verified 06/16/20 15:54) seizure seizure metronidazole Adverse Reaction (Severe, Verified 06/16/20 15:54) seizure morphine Adverse Reaction (Verified 06/16/20 15:54) Nausea Home Medications: Ambulatory Orders Medication Instructions Recorded Calcium Carbonate [Tums] 1,000 mg PO BIDCM tab 03/15/20 Carvedilol [Coreg (Beta Gertrudis)] 25 mg PO BID tab 03/15/20 Magnesium Oxide 400 mg PO BID #60 tab 03/15/20 levETIRAcetam tablet [Keppra 500 mg PO BID tab 03/15/20 tablet] Melatonin 5 mg PO QHS PRN 04/24/20 Acetaminophen [Tylenol] 650 mg PO Q6H PRN PRN 05/01/20 Amlodipine [Norvasc] 2.5 mg PO DAILY 05/01/20 Aspirin [Aspirin, Baby] 81 mg PO DAILY@0800 05/01/20 Cholecalciferol (Vitamin D3) 2,000 unit PO DAILY 05/01/20 [D3-2000] Clopidogrel Bisulfate [Plavix] 75 mg PO DAILY 05/01/20 Leflunomide 20 mg PO DAILY 05/01/20 Losartan Potassium [Cozaar] 100 mg PO DAILY 05/01/20 Pantoprazole Sodium [Protonix] 40 mg PO DAILY 05/01/20 Atorvastatin Calcium [Lipitor] 40 mg PO QHS tab 05/14/20 Ascorbic Acid [C-1000] 1,000 mg PO BID 06/16/20 Baclofen [Lioresal] 10 mg PO TID PRN PRN 06/16/20 Calcium Carbonate [Calcium] 500 mg PO Q4H PRN PRN 06/16/20 DiphenhydrAMINE Liquid [Benadryl 12.5 mg PO BID 06/16/20 Liquid] DiphenhydrAMINE Liquid [Benadryl 12.5 mg PO TID PRN PRN 06/16/20 Liquid] Hydroxyzine HCl 25 mg PO Q6H PRN PRN 06/16/20 Iron Polysaccharide Complex 150 mg PO BID 06/16/20 [Polysaccharide Iron] Triamcinolone Acetonide 1 applic TP BID 06/16/20 Zinc 50 mg PO BID 06/16/20 Surgical History: Surgical History (Last Reviewed 06/16/20 @ 17:[address] Fly Mejia, DO) H/O carotid endarterectomy Z98.890 History of cholecystectomy Z90.49 History of hysterectomy Z90.710 History of left hip replacement Z96.642 History of total right knee replacement Z96.651 Surgical History: appendectomy, cholecystectomy, hysterectomy, total hip arthroplasty - Left., total knee arthroplasty - Right., - - Exploratory laparotomy, carotid endarterectomy. Psychiatric History: No pertinent psych hx SANITATION SUPERINTENDENT History: No pertinent SANITATION SUPERINTENDENT history Smoking Status: Never smoker - *Family History Paternal Family History: Family History (Last Reviewed 06/16/20 @ 17:[address] Fly Mejia DO) Mother Cancer Father Emphysema of lung Aunt Cancer Grandfather Vascular disease Grandmother Diabetes Brother Cancer History Items: Pulmonary Disease Maternal Family History: Family History (Last Reviewed 06/16/20 @ 17:[address] Fly Mejia DO) Mother Cancer Father Emphysema of lung Aunt Cancer Grandfather Vascular disease Grandmother Diabetes Brother Cancer History Items: Cancer Physical Exam - Physical Exam Vital Signs Temp 98.3 F 06/20/20 05:20 Pulse 90 06/20/20 05:20 Resp 16 06/20/20 05:20 BP 132/48 H 06/20/20 05:20 Pulse Ox 96 06/20/20 05:20 Intake & Output 06/18/20 06/19/20 06/20/20 23:59 23:59 23:59 Intake Total 730 / 970 1960 / 2160 1300 / 1300 Output Total 400 / 550 925 / 1075 475 / 475 Balance 330 / 420 1035 / 1085 825 / 825 Intake: Oral 680 / 920 910 / 1110 300 / 300 Intake, IV Amount 50 / 50 1050 / 1050 1000 / 1000 0.9% Normal Saline 1,000 ML @ 1000 / 1000 1000 / 1000 150 mls/hr IV .Q6H40M YEHUDA Rx#: [id number] Rocephin 1 gm In 50 ml @ 100 50 / 50 mls/hr IV Q24 YEHU[facility] Rx#:[id number] Rocephin 1 gm In 50 ml @ 100 50 / 50 mls/hr IV X1 ONE Rx#:[id number] Output: Urine 300 / 450 600 / 750 400 / 400 Stool Amount 100 / 100 325 / 325 75 / 75 Other: Number of Bowel Movements 1 General: Alert HEENT: Atraumatic Oral: Moist Mucosa Neck: Supple Lungs: Normal air movement Cardiovascular: Regular rate Abdomen: Soft - As the baby Microbiology Past 72 Hours 06/16/20 19:45 Urine Culture - Preliminary Urine, Catheterized Pseudomonas aeroginosa Enterococcus faecalis Laboratory Tests Past 24 Hrs 06/18/20 06/20/20 06/20/20 08:45 05:15 05:15 WBC 6.4 RBC 2.69 L Hgb 7.6 L Hct 25.3 L MCV 94.1 MCH 28.3 MCHC 30.0 L D RDW Std Deviation 65.0 H RDW Coeff of Blaine 18.8 H Plt Count 131 L MPV 10.3 Eos Smear Total Cells 4 Sodium 142 Potassium 3.6 Chloride 116 H Carbon Dioxide 22.0 Anion Gap 4 L BUN 27 H Creatinine 1.17 H Estim Creat Clear Calc 29.42 Est GFR (MDRD) Af Amer 57 L Est GFR (MDRD) Non-Af 47 L BUN/Creatinine Ratio 23.1 H Glucose 70 L Calcium 7.1 L Assessment/Plan All Active Problems (Last Reviewed 06/20/20 @ 08:[address] Jairo Wolfe MD) RICCARDO (acute kidney injury) (Acute) Anemia (Acute) Colovesical fistula (Acute) Dehydration (Resolved) 79-year-old female with multiple medical problems presents with what appears to be a fistula on clinical exam and history and documentation reviewed ultrasound reviewed CAT scan impossible to tell on CAT scan or ultrasound whether there is a malignancy going on but that is possible. If the family wants to have further work-up I can see her as an outpatient to complete cystoscopy may have to set up for the operating room for cystoscopy and biopsies and evaluation of the bladder to see if she does has a fistula with a lot of inflammation or whether she has a malignancy. After discharge she can call my office and we can see her in the office for further discussion. Call me with questions. She will need to go h ome with a catheter to maximize drainage of the bladder and hopefully prevent sepsis and infection up I also put her on some antibiotics to prevent sepsis and infection. 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
--- NOTE | 2020-06-20 08:41 | PN.SURG_ITS ---
Patient Problems: Active and Suspected Problems (Last Reviewed 06/20/20 @ 08:[address] Jairo Wolfe MD) RICCARDO (acute kidney injury) (Acute) Anemia (Acute) Colovesical fistula (Acute) Subjective: Patient reported no further issues overnight - Physical Exam Vitals/I&O's: Vital Signs Temp Pulse Resp BP Pulse Ox 98.3 F 90 16 132/48 H 96 06/20/20 05:20 06/20/20 05:20 06/20/20 05:20 06/20/20 05:20 06/20/20 05:20 Oxygen Flow Rate (L/min) 2 Oxygen Delivery Method Room Air Weight: 148 lb 5.938 oz Body Mass Index (BMI) 28.0 Finger Stick Blood Glucose 104 Intake and Output for Last 24 Hours 06/18/20 06/19/20 06/20/20 23:59 23:59 23:59 Intake Total 730 / 970 1960 / 2160 1300 / 1300 Output Total 400 / 550 925 / 1075 475 / 475 Balance 330 / 420 1035 / 1085 825 / 825 General: Alert, Oriented x3 Neck: No JVD Lungs: Normal air movement Cardiovascular: Regular rate, Regular Rhythm Abdomen: Soft, Non Tender, Non-Distended Microbiology Past 72 Hours 06/16/20 19:45 Urine, Catheterized Urine Culture - Preliminary Pseudomonas aeroginosa Enterococcus faecalis Laboratory Results 06/18/20 08:45: Eos Smear Total Cells 4 06/20/20 05:15: WBC 6.4, RBC 2.69 L, Hgb 7.6 L, Hct 25.3 L, MCV 94.1, MCH 28.3, MCHC 30.0 L D, RDW Std Deviation 65.0 H, RDW Coeff of Blaine 18.8 H, Plt Count 131 L, MPV 10.3 06/20/20 05:15: Sodium 142, Potassium 3.6, Chloride 116 H, Carbon Dioxide 22.0, Anion Gap 4 L, BUN 27 H, Creatinine 1.17 H, Estim Creat Clear Calc 29.42, Est GFR (MDRD) Af Amer 57 L, Est GFR (MDRD) Non-Af 47 L, BUN/Creatinine Ratio 23.1 H , Glucose 70 L, Calcium 7.1 L Current Medications Acetaminophen (Acetaminophen 325 Mg Tablet) 650 mg PO Q6H PRN PRN PRN Reason: Pain Score 1-10/Temp > 100.7 F Last Admin: 06/20/20 01:58 Dose: 650 mg Documented by: Ascorbic Acid (Ascorbic Acid 500 Mg Tablet) 1,000 mg PO BID [facility] Last Admin: 06/19/20 23:03 Dose: 1,000 mg Documented by: Atorvastatin Calcium (Atorvastatin Calcium 40 Mg Tablet) 40 mg PO QHS [facility] Last Admin: 06/19/20 23:01 Dose: 40 mg Documented by: Baclofen (Baclofen 10 Mg Tablet) 10 mg PO TID PRN PRN PRN Reason: BACK PAIN Calamine/Phenol (Menthol/Lanolin/Calamine/Znox 113 Gm Tube) 1 applic TOPICAL BID [facility]; Protocol Last Admin: 06/19/20 22:59 Dose: 1 applicatio Documented by: Calcium Carbonate (Calcium Carbonate 500 Mg Tablet) [facility] Last Admin: 06/19/20 17:19 Dose: 1,000 mg Documented by: Carvedilol (Carvedilol 25 Mg Tablet) 25 mg PO BID [facility] Last Admin: 06/19/20 08:51 Dose: 25 mg Documented by: Cholecalciferol (Cholecalciferol (Vit D3) 1,000 Unit (25mcg)) 2,000 unit PO DAILY [facility] Last Admin: 06/19/20 08:52 Dose: 2,000 unit Documented by: Hydroxyzine Pamoate (Hydroxyzine Elisabeth 25 Mg Capsule) 25 mg PO Q6H PRN PRN PRN Reason: ITCHING Last Admin: 06/18/20 06:26 Dose: 25 mg Documented by: Ceftriaxone Sodium (Rocephin) 1 gm in 50 mls @ 100 mls/hr IV Q24 [facility] Last Infusion: 06/19/20 10:24 Dose: Infused Documented by: Sodium Chloride () 1,000 mls @ 150 mls/hr IV .Q6H40M [facility] Stop: 06/20/20 23:59 Last Admin: 06/20/20 05:56 Dose: 150 mls/hr Documented by: Leflunomide (Leflunomide 10 Mg Tablet) 20 mg PO DAILY [facility] Last Admin: 06/19/20 08:52 Dose: 20 mg Documented by: Levetiracetam (Levetiracetam 500 Mg Tablet) 500 mg PO BID [facility] Last Admin: 06/19/20 23:02 Dose: 500 mg Documented by: Magnesium Chloride (Magnesium Chloride 64 Mg Delay Rel.Tablet) 128 mg PO BID [facility] Last Admin: 06/19/20 23:01 Dose: 128 mg Documented by: Melatonin (Melatonin 10 Mg Tablet) 5 mg PO QHS PRN PRN Reason: SLEEP Last Admin: 06/17/20 23:55 Dose: 5 mg Documented by: Nutritional Formula (Lactose Free) (Ensure Enlive 120 Ml Liquid) 120 ml PO 4X/DAY [facility] Last Admin: 06/19/20 23:00 Dose: 120 ml Documented by: Nystatin (Nystatin Powder 15gm Bottle) 1 applic TOPICAL TID [facility]; Protocol Last Admin: 06/20/20 05:56 Dose: 1 applicatio Documented by: Ondansetron HCl (Ondansetron 4 Mg/2 Ml Vial) 4 mg IV Q6H PRN PRN PRN Reason: NAUSEA/VOMITING Last Admin: 06/19/20 10:20 Dose: 4 mg Documented by: Pantoprazole Sodium (Pantoprazole Sodium 40 Mg Tablet) 40 mg PO DAILY [facility] Last Admin: 06/19/20 08:52 Dose: 40 mg Documented by: Polysaccharide Iron Complex (Iron Polysaccharide Complex 150 Mg Capsule) 150 mg PO BID [facility] Last Admin: 06/19/20 23:00 Dose: 150 mg Documented by: Sodium Chloride (0.9% Saline Lock 10 Ml Syringe) 10 - 40 ml IV UD PRN PRN Reason: SALINE FLUSH Last Admin: 06/19/20 15:10 Dose: 10 ml Documented by: Triamcinolone Acetonide (Triamcinolone 0.5% Cream) 1 applic TP BID [facility]; Protocol Last Admin: 06/19/20 23:02 Dose: 1 applicatio Documented by: Medical Necessity - Tobacco Use Smoking Status: Never smoker Assessment/Plan All Active Problems (Last Reviewed 06/20/20 @ 08:[address] 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 I discussed the patient CT findings with her. It was difficult to see due to artifact from her hip. There is a fistulous tract identified but it may be going to small bowel. There was a possible mass on ultrasound the bladder so I would recommend a cystoscopy before proceeding with any surgical intervention but after discussing this with her she said she would be leaning against performing a major surgical intervention. She was considering hospice prior to this. David Cortez MD Pager: [facility] [address] [place] [address], [address] [place] [address] Office:
[2020-06-20 09:30] VITALS: BP 97/53; PULSE 89; RESP 16; TEMP 36.6; O2SAT 95
[2020-06-20] MEDS: Calcium Carbonate 500 MG Tablet 1000 MG PO (09:34)
[2020-06-20] MEDS: Magnesium Chloride 64 MG Delay Rel.Tablet 128 MG PO ×2 (09:35→23:41)
[2020-06-20] MEDS: Pantoprazole Sodium 40 MG Tablet PO (09:35)
[2020-06-20] MEDS: Leflunomide 10 MG TABLET 20 MG PO (09:35)
[2020-06-20] MEDS: levETIRAcetam 500 MG Tablet PO ×2 (09:35→23:40)
[2020-06-20] MEDS: Iron Polysaccharide Complex 150 MG CAPSULE PO ×2 (09:35→23:42)
[2020-06-20] MEDS: Triamcinolone 0.5% Cream 1 APPLIC TP ×2 (09:35→23:29)
[2020-06-20] MEDS: Ascorbic Acid 500 MG Tablet 1000 MG PO ×2 (09:35→23:41)
[2020-06-20] MEDS: Menthol/Lanolin/Calamine/Znox 113 GM Tube 1 APPLIC TOPICAL ×2 (09:36→23:28)
[2020-06-20] MEDS: Ceftriaxone 1 GM/50 ML BAG IV (09:43)
--- NOTE | 2020-06-20 12:52 | CASEMGMT ---
Social Work Note Pt will likely discharge tomorrow. TUNDE placed a call to Lo at [facility] and updated her. Lo states COVID test can be completed today. TUNDE updated charge nurse, pt will need COVID test. Plan: [facility] when medically ready with Palliative Care Rola Coombs ATG ARCHITECT, CORE MICROARCHITECT
[2020-06-20 14:20] VITALS: BP 136/38; PULSE 91; RESP 18; TEMP 36.6; O2SAT 97
[2020-06-20] MEDS: hydrOXYzine PAM 25 MG Capsule PO (14:25)
[2020-06-20 17:45] LABS: Probe Check PASS; Specimen Processing Control PASS
[2020-06-20 23:00] VITALS: BP 123/79; PULSE 96; RESP 22; TEMP 37.4; O2SAT 96
[2020-06-20] MEDS: Ondansetron 4 MG/2 ML Vial IV (23:37)
[2020-06-20] MEDS: Carvedilol 25 MG Tablet PO (23:41)
[2020-06-20] MEDS: Atorvastatin Calcium 40 MG Tablet PO (23:42)
[2020-06-21] MEDS: hydrOXYzine PAM 25 MG Capsule PO (00:08)
[2020-06-21 02:52] VITALS: BP 128/37; PULSE 80; RESP 18; TEMP 36.9; O2SAT 94
[2020-06-21] MEDS: 0.9% Saline Lock 10 ML Syringe IV ×3 (06:13→17:53)
[2020-06-21] MEDS: Nystatin Powder 15gm Bottle 1 APPLIC TOPICAL ×2 (06:13→14:42)
[2020-06-21 06:15] LABS: Hematocrit 25.9 % (37-47); Hemoglobin 7.5 g/dL (12.0-15.0); Mean Corpuscular Hgb 28.4 pg (27.0-32.0); Mean Corpuscular Volume 98.1 fL (81-99); Mean Platelet Vol. 10.3 fl (6.2-12.0); POSITIVE MORPHOLOGY YES; Platelet Count 124 K/mm3 (150-450); RBC Distribution Width CV 18.9 % (11.6-14.6); RBC Distribution Width SD 67.6 fl (35.1-43.9); Red Blood Count 2.64 M/mm3 (4.2-5.4); White Blood Count 6.5 K/mm3 (4.4-11.0)
[2020-06-21 06:23] LABS: Scan Indicated on CBC? Y/N YES- FLAGS NOTED
[2020-06-21 06:38] LABS: Anion Gap 5 (5-15); BUN 21 mg/dL (7-18); BUN/Creat Ratio 23.6 RATIO (10-20); Calcium,Total 7.1 mg/dL (8.5-10.1); Chloride 117 mmol/L (98-107); Creatinine, Serum 0.89 mg/dL (0.55-1.02); EST Glomerular Filtration Rate 65 mL/min (>60); Est Glom Filt Rate - Afr Amer 79 mL/min (>60); Estimated Creatinine Clearance 38.68 ml/min; Glucose 69 mg/dL (74-106); Potassium 3.9 mmol/L (3.5-5.1); Sodium Level 141 mmol/L (136-145)
--- NOTE | 2020-06-21 08:01 | PN_ITS ---
Patient Problems: Active and Suspected Problems (Last Reviewed 06/20/20 @ 08:[address] Jairo Wolfe MD) RICCARDO (acute kidney injury) (Acute) Anemia (Acute) Colovesical fistula (Acute) Reason for Visit: Cystitis Subjective: Patient is a 79-year-old lady resident at [facility] brought in with abnormal labs found to have anemia with hemoglobin of 6.5 as well as acute kidney injury with creatinine of 2.78 06/21/2020; patient urine cultures came back positive for Pseudomonas as well as Enterococcus faecium. Patient was started on cefepime. Consult placed to ID Case discussed with Dr. Kelly cefepime changed to Zosyn. Also did place an order for PICC line. Objective: GENERAL: cooperative HEENT: Atraumatic; EYES; Anicteric, Normal Conjunctiva NECK; supple, normal thyroid, RESPIRATORY: Diminished to auscultation CARDIOVASCULAR: Regular S1 S2, GI: soft, normoactive bowel sounds, ostomy left lower quadrant : No Renal angle tenderness; EXTREMITIES: No edema, no clubbing, MUSCULOSKELETAL: no muscle waisting NEURO: Awake; no lateralizing signs. SKIN: No Rash PSYCH; Flat affect Vitals/I&O's: Vital Signs Temp Pulse Resp BP Pulse Ox 98.4 F 80 18 128/37 H 94 06/21/20 02:52 06/21/20 02:52 06/21/20 02:52 06/21/20 02:52 06/21/20 02:52 Oxygen Flow Rate (L/min) 2 Oxygen Delivery Method Room Air Weight: 67.3 kg Body Mass Index (BMI) 28.0 Finger Stick Blood Glucose 104 Intake and Output for Last 24 Hours 06/19/20 06/20/20 06/21/20 23:59 23:59 23:59 Intake Total 1960 / 2160 3782.5 / 3982.5 1420 / 1420 Output Total 925 / 1075 825 / 950 375 / 375 Balance 1035 / 1085 2957.5 / 3032.5 1045 / 1045 Microbiology Past 72 Hours 06/16/20 19:45 Urine, Catheterized Urine Culture - Final Pseudomonas aeroginosa Enterococcus faecium Laboratory Results 06/20/20 15:56: COVID-19 ([facility]) Negative 06/21/20 05:45: WBC 6.5, RBC 2.64 L, Hgb 7.5 L, Hct 25.9 L, MCV 98.1, MCH 28.4, MCHC 29.0 L, RDW Std Deviation 67.6 H, RDW Coeff of Blaine 18.9 H, Plt Count 124 L, MPV 10.3, Differential Comment [employer]PA[employer] HELPER 06/21/20 05:45: Sodium 141, Potassium 3.9, Chloride 117 H, Carbon Dioxide 19.0 L , Anion Gap 5, BUN 21 H, Creatinine 0.89, Estim Creat Clear Calc 38.68, Est GFR (MDRD) Af Amer 79, Est GFR (MDRD) Non-Af 65, BUN/Creatinine Ratio 23.6 H, Glucose 69 L, Calcium 7.1 L Current Medications Acetaminophen (Acetaminophen 325 Mg Tablet) 650 mg PO Q6H PRN PRN PRN Reason: Pain Score 1-10/Temp > 100.7 F Last Admin: 06/20/20 01:58 Dose: 650 mg Documented by: Ascorbic Acid (Ascorbic Acid 500 Mg Tablet) 1,000 mg PO BID [facility] Last Admin: 06/20/20 23:41 Dose: 1,000 mg Documented by: Atorvastatin Calcium (Atorvastatin Calcium 40 Mg Tablet) 40 mg PO QHS [facility] Last Admin: 06/20/20 23:42 Dose: 40 mg Documented by: Baclofen (Baclofen 10 Mg Tablet) 10 mg PO TID PRN PRN PRN Reason: BACK PAIN Calamine/Phenol (Menthol/Lanolin/Calamine/Znox 113 Gm Tube) 1 applic TOPICAL BID [facility]; Protocol Last Admin: 06/20/20 23:28 Dose: 1 applicatio Documented by: Calcium Carbonate (Calcium Carbonate 500 Mg Tablet) [facility] Last Admin: 06/20/20 18:09 Dose: Not Given Documented by: Carvedilol (Carvedilol 25 Mg Tablet) 25 mg PO BID [facility] Last Admin: 06/20/20 23:41 Dose: 25 mg Documented by: Cholecalciferol (Cholecalciferol (Vit D3) 1,000 Unit (25mcg)) 2,000 unit PO DAILY [facility] Last Admin: 06/20/20 09:34 Dose: 2,000 unit Documented by: Hydroxyzine Pamoate (Hydroxyzine Elisabeth 25 Mg Capsule) 25 mg PO Q6H PRN PRN PRN Reason: ITCHING Last Admin: 06/21/20 00:08 Dose: 25 mg Documented by: Ceftriaxone Sodium (Rocephin) 1 gm in 50 mls @ 100 mls/hr IV Q24 [facility] Last Infusion: 06/20/20 10:13 Dose: Infused Documented by: Leflunomide (Leflunomide 10 Mg Tablet) 20 mg PO DAILY [facility] Last Admin: 06/20/20 09:35 Dose: 20 mg Documented by: Levetiracetam (Levetiracetam 500 Mg Tablet) 500 mg PO BID [facility] Last Admin: 06/20/20 23:40 Dose: 500 mg Documented by: Magnesium Chloride (Magnesium Chloride 64 Mg Delay Rel.Tablet) 128 mg PO BID [facility] Last Admin: 06/20/20 23:41 Dose: 128 mg Documented by: Melatonin (Melatonin 10 Mg Tablet) 5 mg PO QHS PRN PRN Reason: SLEEP Last Admin: 06/17/20 23:55 Dose: 5 mg Documented by: Nutritional Formula (Lactose Free) (Ensure Enlive 120 Ml Liquid) 120 ml PO 4X/DAY [facility] Last Admin: 06/20/20 23:40 Dose: Not Given Documented by: Nystatin (Nystatin Powder 15gm Bottle) 1 applic TOPICAL TID [facility]; Protocol Last Admin: 06/21/20 06:13 Dose: 1 applicatio Documented by: Ondansetron HCl (Ondansetron 4 Mg/2 Ml Vial) 4 mg IV Q6H PRN PRN PRN Reason: NAUSEA/VOMITING Last Admin: 06/20/20 23:37 Dose: 4 mg Documented by: Pantoprazole Sodium (Pantoprazole Sodium 40 Mg Tablet) 40 mg PO DAILY [facility] Last Admin: 06/20/20 09:35 Dose: 40 mg Documented by: Polysaccharide Iron Complex (Iron Polysaccharide Complex 150 Mg Capsule) 150 mg PO BID [facility] Last Admin: 06/20/20 23:42 Dose: 150 mg Documented by: Sodium Chloride (0.9% Saline Lock 10 Ml Syringe) 10 - 40 ml IV UD PRN PRN Reason: SALINE FLUSH Last Admin: 06/21/20 06:13 Dose: 10 ml Documented by: Triamcinolone Acetonide (Triamcinolone 0.5% Cream) 1 applic TP BID [facility]; Protocol Last Admin: 06/20/20 23:29 Dose: 1 applicatio Documented by: Medical Necessity - Tobacco Use Smoking Status: Never smoker Assessment/Plan All Active Problems (Last Reviewed 06/20/20 @ 08:[address] Jairo Wolfe MD) RICCARDO (acute kidney injury) (Acute) Anemia (Acute) Colovesical fistula (Acute) Dehydration (Resolved) Patient is a 79-year-old lady resident at [facility] brought in with abnormal labs found to have anemia with hemoglobin of 6.5 as well as acute kidney injury with creatinine of 2.78 1. Anemia - Secondary to chronic disorder monitoring H&H and transfuse with 2 unit RBC; monitoring H&H with plans to transfuse if hemoglobin falls below 7. -06/19/2020 hemoglobin stable at 8.7 2. Acute kidney injury ?Managed with IV fluid with subsequent monitoring of electrolyte -Slight improvement in kidney function 06/19/2020; creatinine down to 1.46. -1321; kidney function continues to improve 3. 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 Consult subsequently placed to both urology as well as general surgery. CT of the abdomen and pelvis with oral contrast ordered to evaluate for possible colovesical fistula ?06/20/2020; CT of the abdomen and pelvis obtained on 06/19/2020 demonstrated possibility of colovesical fistula. Consult has been placed to both urology as well as general surgery. 4. History of colonic obstruction ?Status post Exploratory laparotomy with sigmoid colectomy and end colostomy on 03/19/2020; 5. Hypertension - Blood pressure controlled, home medications except for lisinopril in view of her impaired kidney function, continued with dose adjustment as needed 6. Seizure disorder ?Patient is on Keppra continue 7. Acute cystitis with Pseudomonas aeruginosa and Enterococcus faecium 06/21/2020; patient urine cultures came back positive for Pseudomonas as well as Enterococcus faecium. Patient was started on cefepime. Consult placed to ID Case discussed with Dr. Kelly cefepime changed to Zosyn. Also did place an order for PICC line. 8. Hypocalcemia ?Corrected per protocol 9. 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 Requested for PT OT eval 10. DVT prophylaxis ?SCDs 11. Physical deconditioning - Requested for PT OT eval and director of social services to assist with discharge planning. Patient had also apparently expressed interest in hospice care consultation subsequently placed -06/21/2020; plan is for patient to be discharged to a nursing home facility when medically stable 12. Questionable bladder mass ?Patient to undergo cystoscopy as outpatient if that is the route family chooses Inpatient E&M: 79790 Subs Hosp L2
[2020-06-21 08:11] VITALS: BP 159/42; PULSE 89; RESP 18; TEMP 36.9; O2SAT 96
[2020-06-21] MEDS: Iron Polysaccharide Complex 150 MG CAPSULE PO (08:14)
[2020-06-21] MEDS: Pantoprazole Sodium 40 MG Tablet PO (08:14)
[2020-06-21] MEDS: Menthol/Lanolin/Calamine/Znox 113 GM Tube 1 APPLIC TOPICAL (08:14)
[2020-06-21] MEDS: Leflunomide 10 MG TABLET 20 MG PO (08:14)
[2020-06-21] MEDS: Calcium Carbonate 500 MG Tablet 1000 MG PO ×2 (08:14→17:53)
[2020-06-21] MEDS: Carvedilol 25 MG Tablet PO (08:14)
[2020-06-21] MEDS: levETIRAcetam 500 MG Tablet PO (10:12)
[2020-06-21] MEDS: Magnesium Chloride 64 MG Delay Rel.Tablet 128 MG PO (10:13)
[2020-06-21] MEDS: Triamcinolone 0.5% Cream 1 APPLIC TP (10:14)
[2020-06-21] MEDS: Ascorbic Acid 500 MG Tablet 1000 MG PO (10:15)
--- NOTE | 2020-06-21 11:16 | CASEMGMT ---
Addendum entered by Rola Coombs 06/21/20 15:34: SW in to speak with pt, RN present in room. SW updated pt and RN that once MidLine is placed, pt will discharge to [facility]. Pt and RN state understanding. TUNDE placed a call to pt's daughter Milli and updater her once MidLine is placed pt will be discharged to [facility]. Milli states understanding. TUNDE faxed discharge paperwork to [facility] including transfer to extended care facility, signed medication list, any scripts, COVID screening tool to [facility]. Original in SNF folder and copy on pt's chart. Pt's COVID test was faxed earlier. TUNDE placed green sheet on the chart with transportation form in the event pt is able to discharge to SNF tonight. TUNDE spoke with Tamara FORTUNE, there was no break in care from when pt was at [facility] to pt discharging to [facility] now, no convalescent or PAS/RR is needed. [facility] will need to get HENS from [facility]. TUNDE wrote on green sheet for staff to call pt's daughter when pt is discharged and to call [facility]. Addendum entered by Rola Coombs 06/21/20 14:13: Pt is medically ready for discharge today once MidLine is placed. TUNDE placed a call to Lo at [facility] and updated her. Lo states understanding, able to accept pt today after MidLine placed. SW waiting for update on when MidLine will be placed. Original Note: Social Work Note Pt's COVID test is negative. Pt will also need IV antibiotics at discharge. TUNDE placed a call to Lo at [facility] and updated her. TUNDE faxed updated clinicals. Plan: [facility] skilled with Palliative once medically cleared Rola Coombs PORTABLE SAWYER, ENGINE GENERATOR ASSEMBLER
--- NOTE | 2020-06-21 11:17 | CON.PCM_ITS ---
Problem List (1) Colovesical fistula Status: Acute Reason for Consult: fistula Consulted by: Dr. Rodriguez History of Present Illness: The patient is a 79 year old F with covid 05/2020, presented 06/16 with anemia, not feeling well. Had colostomy in LLQ. Noted to have stool in urine, bae in place. Ucx with PsA and e. faecium. Cefepime ordered, surgery following. No fever, minimal abd discomfort. Full ROS performed and neg except as noted above. - Medical History Past Medical History (Chronic Problems): Chronic Problems (Last Reviewed 06/20/20 @ 08:[address] Jairo Wolfe MD) Contracture of wrist (Chronic) Chronic anemia (Chronic) CVA (cerebral vascular accident) (Chronic) Polymyalgia rheumatica (Chronic) Generalized weakness (Chronic) Debility (Chronic) Hypertension (Chronic) Chronic kidney disease, stage 2 (mild) (Chronic) GERD (gastroesophageal reflux disease) (Chronic) Coronary artery disease (Chronic) Seizure (Chronic) Hypomagnesemia (Chronic) Hyponatremia (Chronic) Large bowel obstruction (Chronic) BMI 36.0-36.9,adult (Chronic) Pulmonary hypertension (Chronic) RVSP 55 COPD (chronic obstructive pulmonary disease) (Chronic) AILYN (obstructive sleep apnea) (Chronic) AHI 115 and titrated to nasal CPAP 14 cm of water Atherosclerotic heart disease of [place] coronary artery without angina pectoris (Chronic) Chronic renal insufficiency, stage II (mild) (Chronic) Hyperglycemia, unspecified (Chronic) Carotid stenosis (Chronic) Renal artery stenosis (Chronic) HLD (hyperlipidemia) (Chronic) Benign essential hypertension (Chronic) Allergies/Adverse Reactions: Allergies gabapentin Allergy (Verified 06/16/20 15:54) Unknown nortriptyline Allergy (Verified 06/16/20 15:54) Unknown rofecoxib [From Vioxx] Allergy (Verified 06/16/20 15:54) Unknown tacrolimus Allergy (Verified 06/16/20 15:54) Unknown ciprofloxacin Adverse Reaction (Severe, Verified 06/16/20 15:54) seizure seizure metronidazole Adverse Reaction (Severe, Verified 06/16/20 15:54) seizure morphine Adverse Reaction (Verified 06/16/20 15:54) Nausea Home Medications: Ambulatory Orders Medication Instructions Recorded Calcium Carbonate [Tums] 1,000 mg PO BIDCM tab 03/15/20 Carvedilol [Coreg (Beta Gertrudis)] 25 mg PO BID tab 03/15/20 Magnesium Oxide 400 mg PO BID #60 tab 03/15/20 levETIRAcetam tablet [Keppra 500 mg PO BID tab 03/15/20 tablet] Melatonin 5 mg PO QHS PRN 04/24/20 Acetaminophen [Tylenol] 650 mg PO Q6H PRN PRN 05/01/20 Amlodipine [Norvasc] 2.5 mg PO DAILY 05/01/20 Aspirin [Aspirin, Baby] 81 mg PO DAILY@0800 05/01/20 Cholecalciferol (Vitamin D3) 2,000 unit PO DAILY 05/01/20 [D3-2000] Clopidogrel Bisulfate [Plavix] 75 mg PO DAILY 05/01/20 Leflunomide 20 mg PO DAILY 05/01/20 Losartan Potassium [Cozaar] 100 mg PO DAILY 05/01/20 Pantoprazole Sodium [Protonix] 40 mg PO DAILY 05/01/20 Atorvastatin Calcium [Lipitor] 40 mg PO QHS tab 05/14/20 Ascorbic Acid [C-1000] 1,000 mg PO BID 06/16/20 Baclofen [Lioresal] 10 mg PO TID PRN PRN 06/16/20 Calcium Carbonate [Calcium] 500 mg PO Q4H PRN PRN 06/16/20 DiphenhydrAMINE Liquid [Benadryl 12.5 mg PO BID 06/16/20 Liquid] DiphenhydrAMINE Liquid [Benadryl 12.5 mg PO TID PRN PRN 06/16/20 Liquid] Hydroxyzine HCl 25 mg PO Q6H PRN PRN 06/16/20 Iron Polysaccharide Complex 150 mg PO BID 06/16/20 [Polysaccharide Iron] Triamcinolone Acetonide 1 applic TP BID 06/16/20 Zinc 50 mg PO BID 06/16/20 Piperacil/Tazobactam [Zosyn] 3.375 gm IV Q8 14 Days #40 vial 06/21/20 - Social History Tobacco Use: non-smoker Vital Signs Temp Pulse Resp BP Pulse Ox 98.4 F 89 18 159/42 H 96 06/21/20 08:11 06/21/20 08:11 06/21/20 08:11 06/21/20 08:11 06/21/20 08:11 Oxygen Flow Rate (L/min) 2 Oxygen Delivery Method Room Air Weight: 67.3 kg Body Mass Index (BMI) 28.0 Finger Stick Blood Glucose 104 Microbiology Past 72 Hours 06/16/20 19:45 Urine Culture - Final Urine, Catheterized Pseudomonas aeroginosa Enterococcus faecium Laboratory Tests Past 24 Hrs 06/20/20 06/21/20 06/21/20 15:56 05:45 05:45 WBC 6.5 RBC 2.64 L Hgb 7.5 L Hct 25.9 L MCV 98.1 MCH 28.4 MCHC 29.0 L RDW Std Deviation 67.6 H RDW Coeff of Blaine 18.9 H Plt Count 124 L MPV 10.3 Differential Comment [employer] FIELD SUPERVISOR Sodium 141 Potassium 3.9 Chloride 117 H Carbon Dioxide 19.0 L Anion Gap 5 BUN 21 H Creatinine 0.89 Estim Creat Clear Calc 38.68 Est GFR (MDRD) Af Amer 79 Est GFR (MDRD) Non-Af 65 BUN/Creatinine Ratio 23.6 H Glucose 69 L Calcium 7.1 L COVID-19 ([facility]IAM) Negative - Other Studies Radiology: [] reviewed Other Studies: [] Route of nutrition/ use of supplements: [] Nutritional Intake: [] IV Site: [] Bae Catheter: [] - Physical Exam General: Alert, Cooperative, No apparent distress HEENT: Atraumatic, PERRLA, EOMI Neck: Supple, No Nodes Lungs: Clear to auscultation Cardiovascular: Regular rate, Regular Rhythm Abdomen: Soft, Non Tender, Non-Distended, - - ostomy Extremities: No edema Skin: No rashes IV Site: Peripheral Musculoskeletal: No Tenderness to Palpation of Joints or Extremities Neurological: Cranial nerves II-XII grossly intact - Assessment/Plan Antibiotics: [] Assessment/Plan: [] Active and Suspected Problems (Last Reviewed 06/20/20 @ 08:[address] Jairo Wolfe MD) RICCARDO (acute kidney injury) (Acute) Anemia (Acute) Colovesical fistula (Acute) Covid in early 05/2020. Now with ucx with PsA and e.faecium, concern for enterovesicular fistula. Will change her to zosyn for general abd coverage, plan on 2 week course via picc, stop date 07/04/20. Wrote rx. Will follow, thank you, d/w Dr. Rodriguez
--- NOTE | 2020-06-21 12:36 | NURSING ---
AccessRN called at this time for midline placement. Will call back with ETA
--- NOTE | 2020-06-21 13:28 | TREXTCAR_ITS ---
- Diet 06/17/20 10:35 Diet: Regular - No Added Salt Food consistency:: Regular Liquid Consistency:: Regular/Thin Is pt able to select menu?: No Diet Comments: CIB w/ B, magic cup w/ L, ensure pudding w/ D - Routine Orders/Code Status Change Velez Catheter: Per protocol O2 Liters per Minute: 2 O2 Frequency: PRN Keep PO Greater than or Equal to (%): 90 Code [facility] - Wound(s) Buttocks Wound Type: excoriation Left Knee Wound Type: Abrasion FEET Wound Type: multiple scabs R heel Wound Type: Pressure Injury - Therapies Physical Therapy: Eval and Treat Occupational Therapy: Eval and Treat Speech Therapy: Eval and Treat - Allergies/Procedures Done in Hospital Allergies/Adverse Reactions: Allergies gabapentin Allergy (Verified 06/16/20 15:54) Unknown nortriptyline Allergy (Verified 06/16/20 15:54) Unknown rofecoxib [From Vioxx] Allergy (Verified 06/16/20 15:54) Unknown tacrolimus Allergy (Verified 06/16/20 15:54) Unknown ciprofloxacin Adverse Reaction (Severe, Verified 06/16/20 15:54) seizure seizure metronidazole Adverse Reaction (Severe, Verified 06/16/20 15:54) seizure morphine Adverse Reaction (Verified 06/16/20 15:54) Nausea - Type of Care/Length of Stay Estimated LOS: Convalescent Care Less Than 30 days Type of Care Needed: Skilled Rehab Potential: Fair Prognosis: Fair - Additional Orders/Day of Discharge Day of Discharge: 06/21/20 - Dietary and Speech Recommendations Dietitian Recommendations/Changes: Continue regular diet w/ ONS as ordered at meals and medpass. - Follow Up Care Primary Care Physician: Nicolas Villegas MD [NON-STAFF] - Please follow up with your Primary Care Physician in: In 1 to 2 weeks Please Follow Up With: Jairo Wolfe MD When: in 1-2 weeks Please Follow Up With: David Cortez MD When: in 1-2 weeks
--- NOTE | 2020-06-21 13:31 | DS.PCM_ITS ---
Discharge Date and Diagnosis - Problem List Patient Problems: Active and Suspected Problems (Last Reviewed 06/20/20 @ 08:[address] Jairo Wolfe MD) RICCARDO (acute kidney injury) (Acute) Anemia (Acute) Colovesical fistula (Acute) Date of Admission: 06/16/20 Date of Discharge: 06/21/20 - Primary Discharge Diagnosis Acute Problems: Active Problems (Last Reviewed 06/20/20 @ 08:[address] Jairo Wolfe MD) RICCARDO (acute kidney injury) (Acute) Anemia (Acute) Colovesical fistula (Acute) - Secondary Discharge Diagnosis Chronic Problems: Chronic Problems (Last Reviewed 06/20/20 @ 08:[address] Jairo Wolfe MD) Contracture of wrist (Chronic) Chronic anemia (Chronic) CVA (cerebral vascular accident) (Chronic) Polymyalgia rheumatica (Chronic) Generalized weakness (Chronic) Debility (Chronic) Hypertension (Chronic) Chronic kidney disease, stage 2 (mild) (Chronic) GERD (gastroesophageal reflux disease) (Chronic) Coronary artery disease (Chronic) Seizure (Chronic) Hypomagnesemia (Chronic) Hyponatremia (Chronic) Large bowel obstruction (Chronic) BMI 36.0-36.9,adult (Chronic) Pulmonary hypertension (Chronic) RVSP 55 COPD (chronic obstructive pulmonary disease) (Chronic) AIYLN (obstructive sleep apnea) (Chronic) AHI 115 and titrated to nasal CPAP 14 cm of water Atherosclerotic heart disease of [place] coronary artery without angina pectoris (Chronic) Chronic renal insufficiency, stage II (mild) (Chronic) Hyperglycemia, unspecified (Chronic) Carotid stenosis (Chronic) Renal artery stenosis (Chronic) HLD (hyperlipidemia) (Chronic) Benign essential hypertension (Chronic) Hospital Course and Treatment Operations: - - Exploratory laparotomy with sigmoid colectomy and end colostomy Summary of Care Provided: Patient is a 79-year-old lady resident at [facility] brought in with abnormal labs found to have anemia with hemoglobin of 6.5 as well as acute kidney injury with creatinine of 2.78 1. Anemia - Secondary to chronic disorder monitoring H&H and transfuse with 2 unit RBC; monitoring H&H with plans to transfuse if hemoglobin falls below 7. -06/19/2020 hemoglobin stable at 8.7 2. Acute kidney injury ?Managed with IV fluid with subsequent monitoring of electrolyte -Slight improvement in kidney function 06/19/2020; creatinine down to 1.46. -1321; kidney function continues to improve 3. 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 Consult subsequently placed to both urology as well as general surgery. CT of the abdomen and pelvis with oral contrast ordered to evaluate for possible colovesical fistula ?06/20/2020; CT of the abdomen and pelvis obtained on 06/19/2020 demonstrated possibility of colovesical fistula. Consult has been placed to both urology as well as general surgery. 4. History of colonic obstruction ?Status post Exploratory laparotomy with sigmoid colectomy and end colostomy on 03/19/2020; 5. Hypertension - Blood pressure controlled, home medications except for lisinopril in view of her impaired kidney function, continued with dose adjustment as needed 6. Seizure disorder ?Patient is on Keppra continue 7. Acute cystitis with Pseudomonas aeruginosa and Enterococcus faecium 06/21/2020; patient urine cultures came back positive for Pseudomonas as well as Enterococcus faecium. Patient was started on cefepime. Consult placed to ID Case discussed with Dr. Kelly cefepime changed to Zosyn. Also did place an order for PICC line. 8. Hypocalcemia ?Corrected per protocol 9. 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 Requested for PT OT eval 10. DVT prophylaxis ?SCDs 11. Physical deconditioning - Requested for PT OT eval and social work instructor to assist with discharge planning. Patient had also apparently expressed interest in hospice care consultation subsequently placed -06/21/2020; plan is for patient to be discharged to a long term facility when medically stable 12. Questionable bladder mass ?Patient to undergo cystoscopy as outpatient if that is the route family chooses Patient Problems: Active and Suspected Problems (Last Reviewed 06/20/20 @ 08:[address] Jairo Wolfe MD) RICCARDO (acute kidney injury) (Acute) Anemia (Acute) Colovesical fistula (Acute) Objective: GENERAL: cooperative HEENT: Atraumatic; EYES; Anicteric, Normal Conjunctiva NECK; supple, normal thyroid, RESPIRATORY: Diminished to auscultation CARDIOVASCULAR: Regular S1 S2, GI: soft, normoactive bowel sounds, ostomy left lower quadrant : No Renal angle tenderness; EXTREMITIES: No edema, no clubbing, MUSCULOSKELETAL: no muscle waisting NEURO: Awake; no lateralizing signs. SKIN: No Rash PSYCH; Flat affect - Physical Exam Vitals/I&O's: Vital Signs Temp Pulse Resp BP Pulse Ox 98.4 F 89 18 159/42 H 96 06/21/20 08:11 06/21/20 08:11 06/21/20 08:11 06/21/20 08:11 06/21/20 08:11 Oxygen Flow Rate (L/min) 2 Oxygen Delivery Method Room Air Weight: 67.3 kg Body Mass Index (BMI) 28.0 Finger Stick Blood Glucose 104 Intake and Output for Last 24 Hours 06/19/20 06/20/20 06/21/20 23:59 23:59 23:59 Intake Total 1960 / 2160 3782.5 / 3982.5 1470 / 1470 Output Total 925 / 1075 825 / 950 425 / 425 Balance 1035 / 1085 2957.5 / 3032.5 1045 / 1045 Microbiology Past 72 Hours 06/16/20 19:45 Urine, Catheterized Urine Culture - Final Pseudomonas aeroginosa Enterococcus faecium Laboratory Results 06/20/20 15:56: COVID-19 ([facility]) Negative 06/21/20 05:45: WBC 6.5, RBC 2.64 L, Hgb 7.5 L, Hct 25.9 L, MCV 98.1, MCH 28.4, MCHC 29.0 L, RDW Std Deviation 67.6 H, RDW Coeff of Blaine 18.9 H, Plt Count 124 L, MPV 10.3, Differential Comment PRODUCT CONSULTANT 06/21/20 05:45: Sodium 141, Potassium 3.9, Chloride 117 H, Carbon Dioxide 19.0 L , Anion Gap 5, BUN 21 H, Creatinine 0.89, Estim Creat Clear Calc 38.68, Est GFR (MDRD) Af Amer 79, Est GFR (MDRD) Non-Af 65, BUN/Creatinine Ratio 23.6 H, Glucose 69 L, Calcium 7.1 L Current Medications Acetaminophen (Acetaminophen 325 Mg Tablet) 650 mg PO Q6H PRN PRN PRN Reason: Pain Score 1-10/Temp > 100.7 F Last Admin: 06/20/20 01:58 Dose: 650 mg Documented by: Ascorbic Acid (Ascorbic Acid 500 Mg Tablet) 1,000 mg PO BID [facility] Last Admin: 06/21/20 10:15 Dose: 1,000 mg Documented by: Atorvastatin Calcium (Atorvastatin Calcium 40 Mg Tablet) 40 mg PO QHS [facility] Last Admin: 06/20/20 23:42 Dose: 40 mg Documented by: Baclofen (Baclofen 10 Mg Tablet) 10 mg PO TID PRN PRN PRN Reason: BACK PAIN Calamine/Phenol (Menthol/Lanolin/Calamine/Znox 113 Gm Tube) 1 applic TOPICAL BID [facility]; Protocol Last Admin: 06/21/20 08:14 Dose: 1 applicatio Documented by: Calcium Carbonate (Calcium Carbon[facility] 500 Mg [facility] Last Admin: 06/21/20 08:14 Dose: 1,000 mg Documented by: Carvedilol (Carvedilol 25 Mg Tablet) 25 mg PO BID [facility] Last Admin: 06/21/20 08:14 Dose: 25 mg Documented by: Cholecalciferol (Cholecalciferol (Vit D3) 1,000 Unit (25mcg)) 2,000 unit PO DAILY [facility] Last Admin: 06/21/20 10:16 Dose: 2,000 unit Documented by: Hydroxyzine Pamoate (Hydroxyzine Elisabeth 25 Mg Capsule) 25 mg PO Q6H PRN PRN PRN Reason: ITCHING Last Admin: 06/21/20 00:08 Dose: 25 mg Documented by: Piperacillin Sod/Tazobactam (Sod 3.375 gm/ Sodium Chloride) 50 mls @ 12.5 mls/hr IV Q8 [facility] Leflunomide (Leflunomide 10 Mg Tablet) 20 mg PO DAILY [facility] Last Admin: 06/21/20 08:14 Dose: 20 mg Documented by: Levetiracetam (Levetiracetam 500 Mg Tablet) 500 mg PO BID [facility] Last Admin: 06/21/20 10:12 Dose: 500 mg Documented by: Magnesium Chloride (Magnesium Chloride 64 Mg Delay Rel.Tablet) 128 mg PO BID [facility] Last Admin: 06/21/20 10:13 Dose: 128 mg Documented by: Melatonin (Melatonin 10 Mg Tablet) 5 mg PO QHS PRN PRN Reason: SLEEP Last Admin: 06/17/20 23:55 Dose: 5 mg Documented by: Nutritional Formula (Lactose Free) (Ensure Enlive 120 Ml Liquid) 120 ml PO 4X/DAY [facility] Last Admin: 06/21/20 08:15 Dose: Not Given Documented by: Nystatin (Nystatin Powder 15gm Bottle) 1 applic TOPICAL TID [facility]; Protocol Last Admin: 06/21/20 06:13 Dose: 1 applicatio Documented by: Ondansetron HCl (Ondansetron 4 Mg/2 Ml Vial) 4 mg IV Q6H PRN PRN PRN Reason: NAUSEA/VOMITING Last Admin: 06/20/20 23:37 Dose: 4 mg Documented by: Pantoprazole Sodium (Pantoprazole Sodium 40 Mg Tablet) 40 mg PO DAILY [facility] Last Admin: 06/21/20 08:14 Dose: 40 mg Documented by: Polysaccharide Iron Complex (Iron Polysaccharide Complex 150 Mg Capsule) 150 mg PO BID [facility] Last Admin: 06/21/20 08:14 Dose: 150 mg Documented by: Sodium Chloride (0.9% Saline Lock 10 Ml Syringe) 10 - 40 ml IV UD PRN PRN Reason: SALINE FLUSH Last Admin: 06/21/20 10:26 Dose: 10 ml Documented by: Triamcinolone Acetonide (Triamcinolone 0.5% Cream) 1 applic TP BID [facility]; Protocol Last Admin: 06/21/20 10:14 Dose: 1 applicatio Documented by: Discharge Diet: No Restrictions Discharge Activity: Return to Normal Activity Home Medications: Medications to take at Discharge Calcium Carbonate [Tums] 1,000 mg PO BIDCM tab 03/15/20 Carvedilol [Coreg (Beta Gertrudis)] 25 mg PO BID tab 03/15/20 Magnesium Oxide 400 mg PO BID #60 tab 03/15/20 levETIRAcetam tablet [Keppra tablet] 500 mg PO BID tab 03/15/20 Melatonin 5 mg PO QHS PRN 04/24/20 Acetaminophen [Tylenol] 650 mg PO Q6H PRN PRN 05/01/20 Aspirin [Aspirin, Baby] 81 mg PO DAILY@0800 05/01/20 Cholecalciferol (Vitamin D3) [D3-2000] 2,000 unit PO DAILY 05/01/20 Clopidogrel Bisulfate [Plavix] 75 mg PO DAILY 05/01/20 Leflunomide 20 mg PO DAILY 05/01/20 Pantoprazole Sodium [Protonix] 40 mg PO DAILY 05/01/20 Atorvastatin Calcium [Lipitor] 40 mg PO QHS tab 05/14/20 Ascorbic Acid [C-1000] 1,000 mg PO BID 06/16/20 Baclofen [Lioresal] 10 mg PO TID PRN PRN 06/16/20 Calcium Carbonate [Calcium] 500 mg PO Q4H PRN PRN 06/16/20 DiphenhydrAMINE Liquid [Benadryl Liquid] 12.5 mg PO BID 06/16/20 DiphenhydrAMINE Liquid [Benadryl Liquid] 12.5 mg PO TID PRN PRN 06/16/20 Hydroxyzine HCl 25 mg PO Q6H PRN PRN 06/16/20 Iron Polysaccharide Complex [Polysaccharide Iron] 150 mg PO BID 06/16/20 Triamcinolone Acetonide 1 applic TP BID 06/16/20 Zinc 50 mg PO BID 06/16/20 Ensure Enlive 120 ml PO 4X/DAY liquid 06/21/20 Menthol/Lanolin/Calamine/Znox [Calmoseptine Ointment] 1 applic TOPICAL BID tube 06/21/20 Nystatin Powder [Mycostatin Powder] 1 applic TOPICAL TID bottle 06/21/20 Piperacil/Tazobactam [Zosyn] 3.375 gm IV Q8 14 Days #40 vial 06/21/20 Following Prescriptions Were Given to Patient: Piperacil/Tazobactam [Zosyn] 3.375 gm IV Q8 14 Days #40 vial Prescription Printed Primary Care Physician: Nicolas Villegas MD [NON-STAFF] - Please follow up with your Primary Care Physician in: In 1 to 2 weeks Please Follow Up With: Jairo Wolfe MD When: in 1-2 weeks Please Follow Up With: David Cortez MD When: in 1-2 weeks Disposition: Longterm facility Minutes spent on discharge:: 50 Patient Condition:: Stable Medical Necessity - Tobacco Use Smoking Status: Never smoker Meaningful Use Info Meaningful Use Diagnoses (Choose all that apply): None applicable Inpatient E&M: 62784 Disch Hosp
[2020-06-21 14:46] VITALS: BP 146/44; PULSE 79; RESP 16; TEMP 36.4; O2SAT 98
--- NOTE | 2020-06-21 16:34 | NURSING ---
AccessRN in room placing midline
--- NOTE | 2020-06-21 17:41 | NURSING ---
Report given to FELICE Barber at [facility]
[2020-06-21 17:51] VITALS: BP 125/64; PULSE 86; RESP 16; TEMP 36.6; O2SAT 98
[2020-06-21] MEDS: Acetaminophen 325 MG Tablet 650 MG PO (17:53)
== END 2020-06-21 18:45 | disposition skilled nursing facility (03) | DRG 689 ==
LOC: ED 16:11 → MS3 17:36
PROVIDERS: Internal Medicine; Student in an Organized Health Care Education/Training Program; Emergency Provider Emergency Medicine; PCP Family Medicine; Visit Provider Internal Medicine
DX: N30.00 Acute cystitis without hematuria (principal); I63.9 Cerebral infarction, unspecified; N17.9 Acute kidney failure, unspecified; N32.1 Vesicointestinal fistula; E44.0 Moderate protein-calorie malnutrition; D64.9 Anemia, unspecified; Z93.3 Colostomy status; I12.9 Hypertensive chronic kidney disease with stage 1 through stage 4 chronic kidney disease, or unspecified chronic kidney disease; N18.2 Chronic kidney disease, stage 2 (mild); K21.9 Gastro-esophageal reflux disease without esophagitis; D63.1 Anemia in chronic kidney disease; I25.10 Atherosclerotic heart disease of native coronary artery without angina pectoris; J44.9 Chronic obstructive pulmonary disease, unspecified; Z79.899 Other long term (current) drug therapy; Z79.02 Long term (current) use of antithrombotics/antiplatelets; I69.398 Other sequelae of cerebral infarction; G40.909 Epilepsy, unspecified, not intractable, without status epilepticus; Z66 Do not resuscitate; Z68.29 Body mass index [BMI] 29.0-29.9, adult; E86.0 Dehydration; E83.51 Hypocalcemia; B96.5 Pseudomonas (aeruginosa) (mallei) (pseudomallei) as the cause of diseases classified elsewhere; B95.2 Enterococcus as the cause of diseases classified elsewhere; N32.89 Other specified disorders of bladder
CPT/HCPCS: 36415; 74176; 76770; 80048; 80076; 81001; 82274; 82570; 82607; 82728; 82746; 83540; 83550; 83735; 84300; 85025; 85027; 86850; 86900; 86901; 86922; 87077; 87086; 87088; 87186; 87205; 87635; 97110; 97116; 97163; 97166; 97530; 97535; 97802; 99285; J7030; J7040; P9016; A4216; J0610; J2405; U0002